=== PATIENT | female | born 1945 | race Caucasian/White ===

== ENCOUNTER 2019-11-16 12:39 | Inpatient (IN) | payer MEDICARE, BC ==
[~2019-11-16] VITALS: Ht 170.2 cm; Wt 136.5 kg
[~2019-11-16 12:39] MED LIST: ACET500T68 PO; AMLO5TAB10 PO; ASPI-612 PO; CARV25TA PO; DIPH25CA58 PO; DOCU-109 PO; FAMO20TA5 PO; FURO40TA4 PO; GLIM4TAB8 PO; HYDR-2765 PO; INSU100I13 SQ; INSU100I17 SQ; LEVO200T PO; MELO7.5T29 PO; METO50TA6 PO; NITR0.4T24 SL; POTA20TA4 PO; SENN-37 PO; SIMV40TA18 PO; SPIR25TA5 PO; TICA90TA PO
[2019-11-16 13:41] LABS: BASO % 1 % (0-3); EOS # 0.1 x10^3/uL (0.0-0.7); EOS % 1 % (0-3); HEMATOCRIT 34.6 % (36.0-47.0); HEMOGLOBIN 11.1 g/dL (12.0-15.5); LYMPH % 24 % (24-48); MEAN CORPUSCULAR HEMOGLOBIN 24 pg (25-35); MEAN CORPUSCULAR HGB CONC 32 g/dL (31-37); MEAN CORPUSCULAR VOLUME 75 fL (79-100); MONO # 0.7 x10^3/uL (0.0-1.1); MONO % 8 % (0-9); NEUT # 5.5 x10^3/uL (1.8-7.7); NEUT % 66 % (31-73); PLATELET COUNT 254 x10^3/uL (140-400); RED BLOOD COUNT 4.61 x10^6/uL (3.50-5.40); RED CELL DISTRIBUTION WIDTH 16.4 % (11.5-14.5); WHITE BLOOD COUNT 8.4 x10^3/uL (4.0-11.0)
[2019-11-16 13:56] LABS: CALCIUM 9.3 mg/dL (8.5-10.1); CREATININE 1.1 mg/dL (0.6-1.0); GFR 48.3
[2019-11-16 14:01] LABS: ALBUMIN 3.3 g/dL (3.4-5.0); ALBUMIN/GLOBULIN RATIO 0.8 (1.0-1.7); MAGNESIUM 1.4 mg/dL (1.8-2.4); TOTAL BILIRUBIN 0.5 mg/dL (0.2-1.0); TOTAL PROTEIN 7.6 g/dL (6.4-8.2)
[2019-11-16 14:15] LABS: BILIRUBIN,URINE NEGATIVE (NEG); CLARITY,URINE CLOUDY; COLOR,URINE YELLOW; NITRITE,URINE NEGATIVE (NEG); PROTEIN,URINE 30 mg/dL (NEG-TRACE)
[2019-11-16] MEDS ORDERED: IV NORMAL SALINE 1000ML BAG 1,000 ML IV ONE ×2 (14:15→18:00)
[2019-11-16 14:27] LABS: BACTERIA,URINE FEW /HPF (0-FEW); RBC,URINE >40 /HPF (0-2); SQUAMOUS EPITHELIAL CELL,UR OCC /LPF; WBC,URINE TNTC /HPF (0-4)
[2019-11-16 14:28] LABS: BARBITURATES NEG (NEG); BENZODIAZEPINES NEG (NEG); CANNABINOIDS NEG (NEG); COCAINE NEG (NEG); METHADONE NEG (NEG); OPIATES POS (NEG); PHENCYCLIDINE NEG (NEG)
[2019-11-16 14:29] LABS: AMPHETAMINE/METHAMPHETAMINE NEG (NEG)
--- NOTE | 2019-11-16 14:37 | RAD ---
EXAM: Chest, single view. HISTORY: Weakness. COMPARISON: 05/28/2019 FINDINGS: A frontal view of the chest obtained. There is no infiltrate, pleural effusion or pneumothorax. There is eventration of the right hemidiaphragm. The heart is normal in size. IMPRESSION: No acute pulmonary finding. Electronically signed by: Isabel Alarcon MD (11/16/2019 2:34 PM) [place] [id number]
--- NOTE | 2019-11-16 14:39 | EKG ---
[facility] [address] [place] [address] Test Date: 2019-11-16 Test Time: 14:10:31 Pat Name: ROSAURA MERAZ Department: Room: Gender: F [employer]: : [id number] Requested By: CHRISTINA QUEZADA Order Number: [id number] Reading MD: Measurements Intervals [place] Rate: 69 P: [place]: QRS: 8 QRSD: 78 T: 109 QT: 392 QTc: 422 Interpretive Statements IRREGULAR RHYTHM, NO P-WAVE FOUND QRS(T) CONTOUR ABNORMALITY CONSISTENT WITH ANTEROSEPTAL INFARCT PROBABLY OLD ST & T ABNORMALITY, CONSIDER HIGH LATERAL ISCHEMIA OR LEFT VENTRICULAR STRAIN ABNORMAL ECG RI6.01 No previous ECG available for comparison
--- NOTE | 2019-11-16 14:57 | RAD ---
RS Compliance Statement: One or more of the following individualized dose reduction techniques were utilized for this examination: 1. Automated exposure control 2. Adjustment of the mA and/or kV according to patient size 3. Use of iterative reconstruction technique CT head without contrast 11/16/2019 1:32 PM INDICATION: Weakness COMPARISON: None available TECHNIQUE: Multiple axial CT images of the head were obtained from skull base through the vertex without intravenous contrast. FINDINGS: Head: Ventricles, sulci and basal cisterns are within normal limits. Low-attenuation in the periventricular white matter is suggestive of chronic small vessel ischemic changes. There is no hydrocephalus. Parks-white matter differentiation is normal. There is no acute intracranial hemorrhage. There is no mass, mass effect or midline shift. Posterior fossa is normal in appearance. Visualized portions of the orbits are normal. Paranasal sinuses are well aerated. Mastoid air cells are well aerated. Scalp and calvaria are normal. IMPRESSION: No acute intracranial hemorrhage. Low-attenuation in the periventricular white matter is suggestive of chronic small vessel ischemic changes. Electronically signed by: Cari Healy MD (11/16/2019 2:54 PM) [id number]
--- NOTE | 2019-11-16 16:21 | PDOC1 ---
History and Physical Date of Admission Date of Admission DATE: 11/16/19 TIME: 16:20 Identification/Chief Complaint Chief Complaint Confusion Source Source: Caregiver, Chart review, Patient History of Present Illness History of Present Illness Ms Kenney is a 74yo F w/ PMHx DM2, HLD, HTN, CAD s/p stenting who p/w 2 other family members due to confusion and hallucinations, mostly visual. The patient is aware of this and the confusion. She does note a few recent falls, though they were "soft". She c/o some dysuria as well as some mid lower back pain. She has previously been confused with UTIs per family. Labs significant for grossly abnormal UA, cultured and started on rocephin. She was also noted with Na of 128, glucose of 309, Mg 1.4, microcytic anemia, and underwent CXR and CT both of which were negative for acute pathology. EKG was NSR. Past Medical History Cardiovascular: HTN, Hyperlipidemia Endocrine: Diabetes, Hypothyroidism Past Surgical History Past Surgical History: Appendectomy, Cholecystectomy, Tonsillectomy Family History Family History: Diabetes, Hypertension Social History Smoke: No ALCOHOL: none Drugs: None Current Medications Current Medications Current Medications Sodium Chloride 1,000 ml @ 1,000 mls/hr 1X ONCE IV Last administered on 11/16/19at 14:43; Start 11/16/19 at 14:15; Stop 11/16/19 at 15:14; Status DC Ceftriaxone Sodium (Rocephin) 1 gm 1X ONCE IVP ; Start 11/16/19 at 16:30; Stop 11/16/19 at 16:31 Active Scripts Active Novolog Flexpen (Insulin Aspart) 100 Unit/1 Ml Insuln.pen 100 Unit SQ TID PRN PRN Reported Lantus Solostar (Insulin Glargine,Hum.rec.anlog) 100 Unit/1 Ml Insuln.pen 20 Unit SQ QHS Senokot-S Tablet (Sennosides/Docusate Sodium) 1 Each Tablet 1 Each PO PRN DAILY PRN Benadryl (Diphenhydramine Hcl) 25 Mg Capsule 25 Mg PO PRN QHS PRN Acetaminophen 500 Mg Tablet 500 Mg PO PRN Q6HRS PRN Spironolactone 25 Mg Tablet 25 Mg PO DAILY Colace (Docusate Sodium) 100 Mg Capsule 100 Mg PO PRN DAILY PRN Coreg (Carvedilol) 25 Mg Tablet 12.5 Mg PO BIDWMEALS Nitrostat (Nitroglycerin) 0.4 Mg Tab.subl 0.4 Mg SL PRN Q5MIN PRN Hydrocodone-Apap 7.5-325 (Hydrocodone Bit/Acetaminophen) 1 Tab Tablet 1 Tab PO PRN TID PRN Synthroid (Levothyroxine Sodium) 200 Mcg Tablet 200 Mcg PO DAILY Allergies Allergies: Coded Allergies: hydrochlorothiazide (Verified Allergy, Intermediate, Swelling, 04/03/14) valsartan (Verified Allergy, Intermediate, Swelling, 04/03/14) ROS General: YES: Fatigue, Malaise; No: Chills, Night Sweats, Appetite, Other PSYCHOLOGICAL ROS: YES: Anxiety, Behavioral Disorder, Concentration difficultie , Disorientation, Hallucinations, Memory difficulties; No: Decreased libido, Depression, Hostility, Irritablity, Mood Swings, Obsessive thoughts, Physical abuse, Sexual abuse, Sleep disturbances, Suicidal ideation, Other Eyes: No Blurry vision, No Decreased vision, No Double vision, No Dry eyes, No Excessive tearing, No Eye Pain, No Itchy Eyes, No Loss of vision, No Photophobia, No Scotomata, No Uses contacts, No Uses glasses, No Other HEENT: No: Heacaches, Visual Changes, Hearing change, Nasal congestion, Nasal discharge, Oral lesions, Sinus pain, Sore Throat, Epistaxis, Sneezing, Snoring, Tinnitus, Vertigo, Vocal changes, Other ALLERGY AND IMMUNOLOGY: No: Hives, Insect Bite Sensitivity, Itchy/Watery Eyes, Nasal Congestion, Post Nasal Drip, Seasonal Allergies, Other Hematological and Lymphatic: No: Bleeding Problems, Blood Clots, Blood Transfusions, Brusing, Night Sweats, Pallor, Swollen Lymph Nodes, Other ENDOCRINE: No: Breast Changes, Galactorrhea, Hair Pattern Changes, Hot Flashes, Malaise/lethargy, Mood Swings, Palpitations, Polydipsia/polyuria, Skin Changes, Temperature Intolerance, Unexpected Weight Changes, Other Breast: No New/Changing Breast Lumps, No Nipple changes, No Nipple discharge, No Other Respiratory: No: Cough, Hemoptysis, Orthopnea, Pleuritic Pain, Shortness of breath, SOB with excertion, Sputum Changes, Stridor, Tachypnea, Wheezing, Other Cardiovascular: No Chest Pain, No Palpitations, No Orthopnea, No Paroxysmal Noc. Dyspnea, No Edema, No Lt Headedness, No Other Gastrointestinal: No Nausea, No Vomiting, No Abdominal Pain, No Diarrhea, No Constipation, No Melena, No Hematochezia, No Other Genitourinary: YES Dysuria, YES Frequency, YES Urgency; No Incontinence, No Hematuria, No Retention, No Discharge, No Pain, No Flank Pain, No Other, No , No , No , No , No , No , No Musculoskeletal: Yes Gait Disturbance, Yes Joint Pain; No Joint Stiffness, No Joint Swelling, No Muscle Pain, No Muscular Weakness, No Pain In:, No Swelling In:, No Other Neurological: Yes Behavorial Changes, Yes Bowel/Bladder ControlChng, Yes Confusion, Yes Gait Disturbance; No Dizziness, No Headaches, No Impaired Coord/balance, No Memory Loss, No Numbness/Tingling, No Seizures, No Speech Problems, No Tremors, No Visual Larsen es, No Weakness, No Other Skin: No Dry Skin, No Eczema, No Hair Changes, No Lumps, No Mole Changes, No Mottling, No Nail Changes, No Pruritus, No Rash, No Skin Lesion Changes, No Other, No Acne Physical Exam General: Alert, Cooperative, No acute distress, Other (Confused, oriented to person) HEENT: Atraumatic, PERRLA, EOMI, Mucous membr. moist/pink Lungs: Clear to auscultation, Normal air movement Heart: S1S2, RRR, no thrills, no rubs, no gallops, no murmurs Abdomen: Normal bowel sounds, Soft, No tenderness, No hepatosplenomegaly, No masses Rectal Exam: not examined Extremities: No clubbing, No cyanosis, No edema, Normal pulses, Other (Focal L3-4 pain on palpation) Skin: No rashes, No breakdown, No significant lesion Neuro: Normal speech, Strength at 5/5 X4 ext, Normal tone, Sensation intact, Cranial nerves 3-12 NL, Reflexes 2+ Vitals Vitals Vital Signs Date Time Temp Pulse Resp B/P (MAP) Pulse Ox O2 Delivery O2 Flow Rate FiO2 11/16/19 13:00 98.4 82 20 188/91 (123) 98 Room Air 98.4 Labs Labs Laboratory Tests Test 11/16/19 13:11/16/19 14:00 White Blood Count 8.4 x10^3/uL (4.0-11.0) Red Blood Count 4.61 x10^6/uL (3.50-5.40) Hemoglobin 11.1 g/dL (12.0-15.5) Hematocrit 34.6 % (36.0-47.0) Mean Corpuscular Volume 75 fL (79-100) Mean Corpuscular Hemoglobin 24 pg (25-35) Mean Corpuscular Hemoglobin Concent 32 g/dL (31-37) Red Cell Distribution Width 16.4 % (11.5-14.5) Platelet Count 254 x10^3/uL (140-400) Neutrophils (%) (Auto) 66 % (31-73) Lymphocytes (%) (Auto) 24 % (24-48) Monocytes (%) (Auto) 8 % (0-9) Eosinophils (%) (Auto) 1 % (0-3) Basophils (%) (Auto) 1 % (0-3) Neutrophils # (Auto) 5.5 x10^3/uL (1.8-7.7) Lymphocytes # (Auto) 2.0 x10^3/uL (1.0-4.8) Monocytes # (Auto) 0.7 x10^3/uL (0.0-1.1) Eosinophils # (Auto) 0.1 x10^3/uL (0.0-0.7) Basophils # (Auto) 0.0 x10^3/uL (0.0-0.2) Sodium Level 128 mmol/L (136-145) Potassium Level 4.0 mmol/L (3.5-5.1) Chloride Level 92 mmol/L (98-107) Carbon Dioxide Level 28 mmol/L (21-32) Anion Gap 8 (6-14) Blood Urea Nitrogen 23 mg/dL (7-20) Creatinine 1.1 mg/dL (0.6-1.0) Estimated GFR (Cockcroft-Gault) 48.3 BUN/Creatinine Ratio 21 (6-20) Glucose Level 309 mg/dL (70-99) Calcium Level 9.3 mg/dL (8.5-10.1) Magnesium Level 1.4 mg/dL (1.8-2.4) Total Bilirubin 0.5 mg/dL (0.2-1.0) Aspartate Amino Transf (AST/SGOT) 19 U/L (15-37) Alanine Aminotransferase (ALT/SGPT) 13 U/L (14-59) Alkaline Phosphatase 128 U/L (46-116) Creatine Kinase 333 U/L (26-192) Creatine Kinase MB (Mass) 2.3 ng/mL (0.0-3.6) Creatine Kinase MB Relative Index 0.7 % (0-4) Troponin I Quantitative < 0.017 ng/mL (0.000-0.055) UO-Iqo-H-Type Natriuretic Peptide 708 pg/mL (0-449) Total Protein 7.6 g/dL (6.4-8.2) Albumin 3.3 g/dL (3.4-5.0) Albumin/Globulin Ratio 0.8 (1.0-1.7) Lipase 40 U/L (73-393) Thyroid Stimulating Hormone (TSH) 0.649 uIU/mL (0.358-3.74) Urine Collection Type Unknown Urine Color Yellow Urine Clarity Cloudy Urine pH 6.0 Urine Specific [place] 1.020 Urine Protein 30 mg/dL (NEG-TRACE) Urine Glucose (UA) >=1000 mg/dL (NEG) Urine Ketones (Stick) Negative mg/dL (NEG) Urine Blood Large (NEG) Urine Nitrite Negative (NEG) Urine Bilirubin Negative (NEG) Urine Urobilinogen Dipstick 1.0 mg/dL (0.2 mg/dL) Urine Leukocyte Esterase Large (NEG) Urine RBC >40 /HPF (0-2) Urine WBC Tntc /HPF (0-4) Urine Squamous Epithelial Cells Occ /LPF Urine Bacteria Few /HPF (0-FEW) Urine Opiates Screen Pos (NEG) Urine Methadone Screen Neg (NEG) Urine Barbiturates Neg (NEG) Urine Phencyclidine Screen Neg (NEG) Urine Amphetamine/Methamphetamine Neg (NEG) Urine Benzodiazepines Screen Neg (NEG) Urine Cocaine Screen Neg (NEG) Urine Cannabinoids Screen Neg (NEG) Urine Ethyl Alcohol Neg (NEG) Laboratory Tests Test 11/16/19 13:25 11/16/19 14:00 White Blood Count 8.4 x10^3/uL (4.0-11.0) Red Blood Count 4.61 x10^6/uL (3.50-5.40) Hemoglobin 11.1 g/dL (12.0-15.5) Hematocrit 34.6 % (36.0-47.0) Mean Corpuscular Volume 75 fL (79-100) Mean Corpuscular Hemoglobin 24 pg (25-35) Mean Corpuscular Hemoglobin Concent 32 g/dL (31-37) Red Cell Distribution Width 16.4 % (11.5-14.5) Platelet Count 254 x10^3/uL (140-400) Neutrophils (%) (Auto) 66 % (31-73) Lymphocytes (%) (Auto) 24 % (24-48) Monocytes (%) (Auto) 8 % (0-9) Eosinophils (%) (Auto) 1 % (0-3) Basophils (%) (Auto) 1 % (0-3) Neutrophils # (Auto) 5.5 x10^3/uL (1.8-7.7) Lymphocytes # (Auto) 2.0 x10^3/uL (1.0-4.8) Monocytes # (Auto) 0.7 x10^3/uL (0.0-1.1) Eosinophils # (Auto) 0.1 x10^3/uL (0.0-0.7) Basophils # (Auto) 0.0 x10^3/uL (0.0-0.2) Sodium Level 128 mmol/L (136-145) Potassium Level 4.0 mmol/L (3.5-5.1) Chloride Level 92 mmol/L (98-107) Carbon Dioxide Level 28 mmol/L (21-32) Anion Gap 8 (6-14) Blood Urea Nitrogen 23 mg/dL (7-20) Creatinine 1.1 mg/dL (0.6-1.0) Estimated GFR (Cockcroft-Gault) 48.3 BUN/Creatinine Ratio 21 (6-20) Glucose Level 309 mg/dL (70-99) Calcium Level 9.3 mg/dL (8.5-10.1) Magnesium Level 1.4 mg/dL (1.8-2.4) Total Bilirubin 0.5 mg/dL (0.2-1.0) Aspartate Amino Transf (AST/SGOT) 19 U/L (15-37) Alanine Aminotransferase (ALT/SGPT) 13 U/L (14-59) Alkaline Phosphatase 128 U/L (46-116) Creatine Kinase 333 U/L (26-192) Creatine Kinase MB (Mass) 2.3 ng/mL (0.0-3.6) Creatine Kinase MB Relative Index 0.7 % (0-4) Troponin I Quantitative < 0.017 ng/mL (0.000-0.055) EL-Edj-B-Type Natriuretic Peptide 708 pg/mL (0-449) Total Protein 7.6 g/dL (6.4-8.2) Albumin 3.3 g/dL (3.4-5.0) Albumin/Globulin Ratio 0.8 (1.0-1.7) Lipase 40 U/L (73-393) Thyroid Stimulating Hormone (TSH) 0.649 uIU/mL (0.358-3.74) Urine Collection Type Unknown Urine Color Yellow Urine Clarity Cloudy Urine pH 6.0 Urine Specific [place] 1.020 Urine Protein 30 mg/dL (NEG-TRACE) Urine Glucose (UA) >=1000 mg/dL (NEG) Urine Ketones (Stick) Negative mg/dL (NEG) Urine Blood Large (NEG) Urine Nitrite Negative (NEG) Urine Bilirubin Negative (NEG) Urine Urobilinogen Dipstick 1.0 mg/dL (0.2 mg/dL) Urine Leukocyte Esterase Large (NEG) Urine RBC >40 /HPF (0-2) Urine WBC Tntc /HPF (0-4) Urine Squamous Epithelial Cells Occ /LPF Urine Bacteria Few /HPF (0-FEW) Urine Opiates Screen Pos (NEG) Urine Methadone Screen Neg (NEG) Urine Barbiturates Neg (NEG) Urine Phencyclidine Screen Neg (NEG) Urine Amphetamine/Methamphetamine Neg (NEG) Urine Benzodiazepines Screen Neg (NEG) Urine Cocaine Screen Neg (NEG) Urine Cannabinoids Screen Neg (NEG) Urine Ethyl Alcohol Neg (NEG) Images Images CXR - There is no infiltrate, pleural effusion or pneumothorax. There is eventration of the right hemidiaphragm. The heart is normal in size. IMPRESSION: No acute pulmonary finding. CT head without contrast 11/16/2019 1:32 PM Head: Ventricles, sulci and basal cisterns are within normal limits. Low-attenuation in the periventricular white matter is suggestive of chronic small vessel ischemic changes. There is no hydrocephalus. Parks-white matter differentiation is normal. There is no acute intracranial hemorrhage. There is no mass, mass effect or midline shift. Posterior fossa is normal in appearance. Visualized portions of the orbits are normal. Paranasal sinuses are well aerated. Mastoid air cells are well aerated. Scalp and calvaria are normal. IMPRESSION: No acute intracranial hemorrhage. Low-attenuation in the periventricular white matter is suggestive of chronic small vessel ischemic changes. VTE Prophylaxis Ordered VTE Prophylaxis Devices: No VTE Pharmacological Prophylaxi: Yes Assessment/Plan Assessment/Plan A/P: Acute encephalopathy - likely 2/2 UTI vs hyponatremia UTI - will treat empirically with rocephin, f/u culture results Urinary incontinence - will have bladder training with OT Morbid obesity BMI 50 - counseled on weight loss Lower back pain - new onset, relatively, with her recent falls and confusion, will obtain lumbar X-ray to r/o acute pathology Bilateral knee pain left greater than right - improved after prior injections Diabetes type 2 uncontrolled - will place on basal bolus plus regimen in house Hypertension, controlled - cont meds Hyponatremia - will give IVF, this seems hypovolemic Hypomagnesemia - will replace, check in AM Hypothyroidism - TSH WNL, will cont 200mcg levothyroxine dosing FEN - ADA diet PPX - lovenox FULL CODE Dispo -inpatient likely 2 midnights HILDA HERNANDEZ MD Nov 16, 2019 16:21
[2019-11-16] MEDS ORDERED: cefTRIAXone IV Push 1 GM VIAL. IVP ONE (16:30)
[2019-11-16] MEDS ORDERED: NITROGLYCERIN SUBLINGUAL 0.4 MG BOTTLE OF 25. SL PRN (17:45)
--- NOTE | 2019-11-16 17:47 | PHYS DOC ---
Past Medical History Past Medical History: Diabetes-Type II, High Cholesterol, Hypertension, AL, Other Additional Past Medical Histor: HEART STENTS Past Surgical History: Appendectomy, Cholecystectomy, Tonsillectomy Additional Past Surgical Histo: CARDIAC STENTS Alcohol Use: Rarely Drug Use: None Adult General Chief Complaint Chief Complaint: WEAKNESS/GENERALIZED HPI HPI Patient is a 74 year old female with history of high cholesterol, hypertension, AL, diabetes type 2, presenting to the ED today from home. Patient is in the ED with 2 other family members, they report patient appeared confused. They state patient was seeing and talking about things that don't exist. They report patient typically has this behavior when she has a UTI. Review of Systems Review of Systems Constitutional: Denies fever or chills [] Eyes: Denies change in visual acuity, redness, or eye pain [] HENT: Denies nasal congestion or sore throat [] Respiratory: Denies cough or shortness of breath [] Cardiovascular: No additional information not addressed in HPI [] GI: Denies abdominal pain, nausea, vomiting, bloody stools or diarrhea [] : Denies dysuria or hematuria [] Musculoskeletal: Denies back pain or joint pain [] Integument: Denies rash or skin lesions [] Neurologic: Reports confusion denies headache, focal weakness or sensory changes [] All other systems were reviewed and found to be within normal limits, except as documented in this note. Current Medications Current Medications Current Medications Medications (Trade) Dose Ordered Sig/Natasha Start Time Stop Time Status Last Admin Dose Admin Sodium Chloride 1,000 ml @ 1,000 mls/hr 1X ONCE 11/16/19 14:15 11/16/19 15:14 DC 11/16/19 14:43 1,000 MLS/HR Allergies Allergies Allergies Coded Allergies Type Severity Reaction Last Updated Verified hydrochlorothiazide Allergy Intermediate Swelling 04/03/14 Yes valsartan Allergy Intermediate Swelling 04/03/14 Yes Physical Exam Physical Exam Constitutional: Well developed, well nourished, no acute distress, non-toxic appearance. [] HENT: Normocephalic, atraumatic, bilateral external ears normal, oropharynx peter st, no oral exudates, nose normal. [] Eyes: PERRLA, EOMI, conjunctiva normal, no discharge. [] Neck: Normal range of motion, no tenderness, supple, no stridor. [] Cardiovascular:Heart rate regular rhythm, no murmur [] Lungs & Thorax: Bilateral breath sounds clear to auscultation [] Abdomen: Bowel sounds normal, soft, no tenderness, no masses, no pulsatile masses. [] Skin: Warm, dry, no erythema, no rash. [] Back: No tenderness, no CVA tenderness. [] Extremities: No tenderness, no cyanosis, no clubbing, ROM intact, no edema. [] Neurologic: Alert and oriented X 3, normal motor function, normal sensory function, no focal deficits noted. Cranial nerves II through XII intact Psychologic: Affect normal, judgement normal, mood normal. [] Current Patient Data Vital Signs Vital Signs Date Time Temp Pulse Resp B/P (MAP) Pulse Ox O2 Delivery O2 Flow Rate FiO2 11/16/19 13:00 98.4 82 20 188/91 (123) 98 Room Air 98.4 Lab Values Laboratory Tests Test 11/16/19 13:25 11/16/19 14:00 White Blood Count 8.4 x10^3/uL (4.0-11.0) Red Blood Count 4.61 x10^6/uL (3.50-5.40) Hemoglobin 11.1 g/dL (12.0-15.5) L Hematocrit 34.6 % (36.0-47.0) L Mean Corpuscular Volume 75 fL (79-100) L Mean Corpuscular Hemoglobin 24 pg (25-35) L Mean Corpuscular Hemoglobin Concent 32 g/dL (31-37) Red Cell Distribution Width 16.4 % (11.5-14.5) H Platelet Count 254 x10^3/uL (140-400) Neutrophils (%) (Auto) 66 % (31-73) Lymphocytes (%) (Auto) 24 % (24-48) Monocytes (%) (Auto) 8 % (0-9) Eosinophils (%) (Auto) 1 % (0-3) Basophils (%) (Auto) 1 % (0-3) Neutrophils # (Auto) 5.5 x10^3/uL (1.8-7.7) Lymphocytes # (Auto) 2.0 x10^3/uL (1.0-4.8) Monocytes # (Auto) 0.7 x10^3/uL (0.0-1.1) Eosinophils # (Auto) 0.1 x10^3/uL (0.0-0.7) Basophils # (Auto) 0.0 x10^3/uL (0.0-0.2) Sodium Level 128 mmol/L (136-145) L Potassium Level 4.0 mmol/L (3.5-5.1) Chloride Level 92 mmol/L (98-107) L Carbon Dioxide Level 28 mmol/L (21-32) Anion Gap 8 (6-14) Blood Urea Nitrogen 23 mg/dL (7-20) H Creatinine 1.1 mg/dL (0.6-1.0) H Estimated GFR (Cockcroft-Gault) 48.3 BUN/Creatinine Ratio 21 (6-20) H Glucose Level 309 mg/dL (70-99) H Calcium Level 9.3 mg/dL (8.5-10.1) Magnesium Level 1.4 mg/dL (1.8-2.4) L Iron Level 43 ug/dL (50-170) L Total Iron Binding Capacity 364 ug/dL (250-450) Iron Saturation 12 % (15-34) L Total Bilirubin 0.5 mg/dL (0.2-1.0) Aspartate Amino Transferase (AST) 19 U/L (15-37) Alanine Aminotransferase (ALT) 13 U/L (14-59) L Alkaline Phosphatase 128 U/L (46-116) H Creatine Kinase 333 U/L (26-192) H Creatine Kinase MB (Mass) 2.3 ng/mL (0.0-3.6) Creatine Kinase MB Relative Index 0.7 % (0-4) Troponin I Quantitative < 0.017 ng/mL (0.000-0.055) UU-Nio-Z-Type Natriuretic Peptide 708 pg/mL (0-449) H Total Protein 7.6 g/dL (6.4-8.2) Albumin 3.3 g/dL (3.4-5.0) L Albumin/Globulin Ratio 0.8 (1.0-1.7) L Lipase 40 U/L (73-393) L Thyroid Stimulating Hormone (TSH) 0.649 uIU/mL (0.358-3.74) Urine Collection Type Unknown Urine Color Yellow Urine Clarity Cloudy Urine pH 6.0 Urine Specific [place] 1.020 Urine Protein 30 mg/dL (NEG-TRACE) Urine Glucose (UA) >=1000 mg/dL (NEG) Urine Ketones (Stick) Negative mg/dL (NEG) Urine Blood Large (NEG) Urine Nitrite Negative (NEG) Urine Bilirubin Negative (NEG) Urine Urobilinogen Dipstick 1.0 mg/dL (0.2 mg/dL) Urine Leukocyte Esterase Large (NEG) Urine RBC >40 /HPF (0-2) Urine WBC Tntc /HPF (0-4) Urine Squamous Epithelial Cells Occ /LPF Urine Bacteria Few /HPF (0-FEW) Urine Opiates Screen Pos (NEG) Urine Methadone Screen Neg (NEG) Urine Barbiturates Neg (NEG) Urine Phencyclidine Screen Neg (NEG) Urine Amphetamine/Methamphetamine Neg (NEG) Urine Benzodiazepines Screen Neg (NEG) Urine Cocaine Screen Neg (NEG) Urine Cannabinoids Screen Neg (NEG) Urine Ethyl Alcohol Neg (NEG) Laboratory Tests 11/16/19 13:25 Laboratory Tests 11/16/19 13:25 EKG EKG [address] eLone SR HR 69 no STEMI[] Radiology/Procedures Radiology/Procedures []PROCEDURE: PORTABLE CHEST 1V EXAM: Chest, single view. HISTORY: Weakness. COMPARISON: 05/28/2019 FINDINGS: A frontal view of the chest obtained. There is no infiltrate, pleural effusion or pneumothorax. There is eventration of the right hemidiaphragm. The heart is normal in size. IMPRESSION: No acute pulmonary finding. Electronically signed by: Isabel Ibarra MD (11/16/2019 2:34 PM) [facility] DICTATED and SIGNED BY: ISABEL IBARRA MD DATE: 11/16/19 1434 PROCEDURE: CT HEAD WO CONTRAST PQRS Compliance Statement: One or more of the following individualized dose reduction techniques were utilized for this examination: 1. Automated exposure control 2. Adjustment of the mA and/or kV according to patient size 3. Use of iterative reconstruction technique CT head without contrast 11/16/2019 1:32 PM INDICATION: Weakness COMPARISON: None available TECHNIQUE: Multiple axial CT images of the head were obtained from skull base through the vertex without intravenous contrast. FINDINGS: Head: Ventricles, sulci and basal cisterns are within normal limits. Low-attenuation in the periventricular white matter is suggestive of chronic small vessel ischemic changes. There is no hydrocephalus. Parks-white matter differentiation is normal. There is no acute intracranial hemorrhage. There is no mass, mass effect or midline shift. Posterior fossa is normal in appearance. Visualized portions of the orbits are normal. Paranasal sinuses are well aerated. Mastoid air cells are well aerated. Scalp and calvaria are normal. IMPRESSION: No acute intracranial hemorrhage. Low-attenuation in the periventricular white matter is suggestive of chronic small vessel ischemic changes. Electronically signed by: Lizette Lantigua MD (11/16/2019 2:54 PM) [facility] DICTATED and SIGNED BY: LIZETTE LANTIGUA MD DATE: 11/16/19 4053 Course & Med Decision Making Course & Med Decision Making Pertinent Labs and Imaging studies reviewed. (See chart for details) This is a 74-year-old female patient presenting to the ED today to be evaluated for confusion for 2 days and possible UTI. Urine positive for UTI, CT of the head is negative. CBC with a normal WBC, CMP with sodium of 128, glucose of 309, anion gap is normal Patient was started on Rocephin and IV fluids. Spoke with Dr. Sorensen who accepted patient for admission. Dragon Disclaimer Dragon Disclaimer This electronic medical record was generated, in whole or in part, using a voice recognition dictation system. Departure Departure Impression: Primary Impression: Urinary tract infection Additional Impressions: Altered mental status Hyperglycemia Disposition: 09 ADMITTED INPATIENT Condition: STABLE Referrals: RYAN ALY MD (PCP) Problem Qualifiers Primary Impression: Urinary tract infection Urinary tract infection type: site unspecified Hematuria presence: without hematuria Qualified Codes: N39.0 - Urinary tract infection, site not specified Additional Impressions: Altered mental status Altered mental status type: unspecified Qualified Codes: R41.82 - Altered mental status, unspecified CHRISTINA QUEZADA [employer]ER Nov 16, 2019 17:47
[2019-11-16] MEDS ORDERED: ACETAMINOPHEN 325 MG TABLET. PO PRN (18:00)
[2019-11-16] MEDS ORDERED: ONDANSETRON PF 4 MG/2 ML VIAL. IV PRN ×2 (18:00→21:45)
[2019-11-16] MEDS ORDERED: MORPHINE SULFATE 2 MG/ML VIAL. IV PRN (18:00)
[2019-11-16 19:00] VITALS: BP 148/63
--- NOTE | 2019-11-16 19:30 | NUR ---
The patient, ROSAURA MERAZ, 74 y/o, F admitted by HILDA HERNANDEZ MD, was given written information regarding hospital policies, unit procedures and contact persons. Valuables were checked and noted. Patient is currently sitting in bed watching TV. Patient states that her daughters took her purse home with them prior to admission to the floor. Patient was given ice water and a box lunch, patient states no other needs at this time. This RN will continue to monitor the patient.
[2019-11-16] MEDS: INSULIN GLARGINE SYRINGE. SQ SCH (21:41)
[2019-11-16] MEDS ORDERED: IV DEXTROSE 5% 250 ML BAG. IV PRN (21:45)
[2019-11-16] MEDS ORDERED: DEXTROSE 50% 25 GM / 50ML DISP.SYRIN. IV PRN (21:45)
[2019-11-16] MEDS ORDERED: MAGNESIUM SULFATE 4GM 100 ML IV ONE (22:00)
[2019-11-16] MEDS ORDERED: ENOXAPARIN 30 MG/0.3 ML SYRINGE. SQ SCH (22:00)
[2019-11-16 23:00] VITALS: BP 158/55
[2019-11-17] MEDS: ACETAMINOPHEN 500 MG TABLET PO PRN ×2 (02:49→15:02)
[2019-11-17 03:00] VITALS: BP 162/64
[2019-11-17 05:52] LABS: CALCIUM 8.8 mg/dL (8.5-10.1); CREATININE 0.9 mg/dL (0.6-1.0); GFR 60.9; POTASSIUM 3.7 mmol/L (3.5-5.1)
[2019-11-17] MEDS: LEVOTHYROXINE 100 MCG TABLET PO SCH (06:30)
[2019-11-17 07:00] VITALS: BP 114/58
[2019-11-17] MEDS: CARVEDILOL 12.5 MG TABLET. PO SCH ×2 (08:55→17:24)
[2019-11-17] MEDS: INSULIN LISPRO 300 UNITS/3 ML VIAL. SQ SCH ×4 (08:57→22:13)
[2019-11-17] MEDS ORDERED: cefTRIAXone IV Push 1 GM VIAL. IVP SCH (09:30)
--- NOTE | 2019-11-17 09:32 | PDOC ---
PROGRESS NOTES Chief Complaint Chief Complaint A/P: Acute encephalopathy - likely 2/2 UTI vs hyponatremia UTI - will treat empirically with rocephin, f/u culture results Urinary incontinence - will have bladder training with OT Morbid obesity BMI 50 - counseled on weight loss Lower back pain - new onset, relatively, with her recent falls and confusion, will obtain lumbar X-ray to r/o acute pathology Bilateral knee pain left greater than right - improved after prior injections Diabetes type 2 uncontrolled - will place on basal bolus plus regimen in house Hypertension, controlled - cont meds Hyponatremia - will give IVF, this seems hypovolemic Hypomagnesemia - will replace, check in AM Hypothyroidism - TSH WNL, will cont 200mcg levothyroxine dosing Rash - on left arm, appears vesicular, slightly painful, with the distribution will treat as shingles FEN - ADA diet PPX - lovenox FULL CODE Dispo -inpatient likely 2 midnights History of Present Illness History of Present Illness Ms Kenney is a 74yo F w/ PMHx DM2, HLD, HTN, CAD s/p stenting who p/w 2 other family members due to confusion and hallucinations, mostly visual. The patient is aware of this and the confusion. She does note a few recent falls, though they were "soft". She c/o some dysuria as well as some mid lower back pain. She has previously been confused with UTIs per family. Labs significant for grossly abnormal UA, cultured and started on rocephin. She was also noted with Na of 128, glucose of 309, Mg 1.4, microcytic anemia, and underwent CXR and CT both of which were negative for acute pathology. EKG wa s NSR. Overnight started feeling a bit better. This morning she lost IV access, now has a rash on her left hand and arm, vesicular, a bit painful. No CP or SOB Plan: Treat shingles 1000mg TID valtrex Vitals Vitals Vital Signs Date Time Temp Pulse Resp B/P (MAP) Pulse Ox O2 Delivery O2 Flow Rate FiO2 11/17/19 08:55 71 114/58 11/17/19 08:00 Room Air 11/17/19 07:00 97.7 14 95 97.7 Physical Exam General: Alert, Cooperative, No acute distress, Other (Confused, oriented to person) Lungs: Clear Abdomen: Normal bowel sounds, Soft, No tenderness, No hepatosplenomegaly, No ma sses Extremities: No clubbing, No cyanosis, No edema, Normal pulses, Other (Focal L3-4 pain on palpation) Skin: No rashes, No breakdown, No significant lesion Labs LABS Laboratory Tests Test 11/16/19 13:25 11/16/19 14:00 11/16/19 21:27 11/17/19 05:10 White Blood Count 8.4 x10^3/uL (4.0-11.0) Red Blood Count 4.61 x10^6/uL (3.50-5.40) Hemoglobin 11.1 g/dL (12.0-15.5) Hematocrit 34.6 % (36.0-47.0) Mean Corpuscular Volume 75 fL (79-100) Mean Corpuscular Hemoglobin 24 pg (25-35) Mean Corpuscular Hemoglobin Concent 32 g/dL (31-37) Red Cell Distribution Width 16.4 % (11.5-14.5) Platelet Count 254 x10^3/uL (140-400) Neutrophils (%) (Auto) 66 % (31-73) Lymphocytes (%) (Auto) 24 % (24-48) Monocytes (%) (Auto) 8 % (0-9) Eosinophils (%) (Auto) 1 % (0-3) Basophils (%) (Auto) 1 % (0-3) Neutrophils # (Auto) 5.5 x10^3/uL (1.8-7.7) Lymphocytes # (Auto) 2.0 x10^3/uL (1.0-4.8) Monocytes # (Auto) 0.7 x10^3/uL (0.0-1.1) Eosinophils # (Auto) 0.1 x10^3/uL (0.0-0.7) Basophils # (Auto) 0.0 x10^3/uL (0.0-0.2) Sodium Level 128 mmol/L (136-145) 130 mmol/L (136-145) Potassium Level 4.0 mmol/L (3.5-5.1) 3.7 mmol/L (3.5-5.1) Chloride Level 92 mmol/L (98-107) 97 mmol/L (98-107) Carbon Dioxide Level 28 mmol/L (21-32) 28 mmol/L (21-32) Anion Gap 8 (6-14) 5 (6-14) Blood Urea Nitrogen 23 mg/dL (7-20) 17 mg/dL (7-20) Creatinine 1.1 mg/dL (0.6-1.0) 0.9 mg/dL (0.6-1.0) Estimated GFR (Cockcroft-Gault) 48.3 60.9 BUN/Creatinine Ratio 21 (6-20) Glucose Level 309 mg/dL (70-99) 227 mg/dL (70-99) Calcium Level 9.3 mg/dL (8.5-10.1) 8.8 mg/dL (8.5-10.1) Magnesium Level 1.4 mg/dL (1.8-2.4) Iron Level 43 ug/dL (50-170) Total Iron Binding Capacity 364 ug/dL (250-450) Iron Saturation 12 % (15-34) Total Bilirubin 0.5 mg/dL (0.2-1.0) Aspartate Amino Transf (AST/SGOT) 19 U/L (15-37) Alanine Aminotransferase (ALT/SGPT) 13 U/L (14-59) Alkaline Phosphatase 128 U/L (46-116) Creatine Kinase 333 U/L (26-192) Creatine Kinase MB (Mass) 2.3 ng/mL (0.0-3.6) Creatine Kinase MB Relative Index 0.7 % (0-4) Troponin I Quantitative < 0.017 ng/mL (0.000-0.055) DQ-Dom-G-Type Natriuretic Peptide 708 pg/mL (0-449) Total Protein 7.6 g/dL (6.4-8.2) Albumin 3.3 g/dL (3.4-5.0) Albumin/Globulin Ratio 0.8 (1.0-1.7) Lipase 40 U/L (73-393) Vitamin B12 Level 270 pg/mL (247-911) Thyroid Stimulating Hormone (TSH) 0.649 uIU/mL (0.358-3.74) Urine Collection Type Unknown Urine Color Yellow Urine Clarity Cloudy Urine pH 6.0 Urine Specific [place] 1.020 Urine Protein 30 mg/dL (NEG-TRACE) Urine Glucose (UA) >=1000 mg/dL (NEG) Urine Ketones (Stick) Negative mg/dL (NEG) Urine Blood Large (NEG) Urine Nitrite Negative (NEG) Urine Bilirubin Negative (NEG) Urine Urobilinogen Dipstick 1.0 mg/dL (0.2 mg/dL) Urine Leukocyte Esterase Large (NEG) Urine RBC >40 /HPF (0-2) Urine WBC Tntc /HPF (0-4) Urine Squamous Epithelial Cells Occ /LPF Urine Bacteria Few /HPF (0-FEW) Urine Opiates Screen Pos (NEG) Urine Methadone Screen Neg (NEG) Urine Barbiturates Neg (NEG) Urine Phencyclidine Screen Neg (NEG) Urine Amphetamine/Methamphetamine Neg (NEG) Urine Benzodiazepines Screen Neg (NEG) Urine Cocaine Screen Neg (NEG) Urine Cannabinoids Screen Neg (NEG) Urine Ethyl Alcohol Neg (NEG) Glucose (Fingerstick) 284 mg/dL (70-99) Test 11/17/19 08:42 Glucose (Fingerstick) 218 mg/dL (70-99) Assessment and Plan Assessmemt and Plan Problems Medical Problems: (1) Altered mental status Status: Acute (2) Hyperglycemia Status: Acute (3) Urinary tract infection Status: Acute Comment Review of Relevant I have reviewed the following items jina (where applicable) has been applied. Labs Laboratory Tests Test 11/16/19 13:25 11/16/19 14:00 11/16/19 21:27 11/17/19 05:10 White Blood Count 8.4 x10^3/uL (4.0-11.0) Red Blood Count 4.61 x10^6/uL (3.50-5.40) Hemoglobin 11.1 g/dL (12.0-15.5) Hematocrit 34.6 % (36.0-47.0) Mean Corpuscular Volume 75 fL (79-100) Mean Corpuscular Hemoglobin 24 pg (25-35) Mean Corpuscular Hemoglobin Concent 32 g/dL (31-37) Red Cell Distribution Width 16.4 % (11.5-14.5) Platelet Count 254 x10^3/uL (140-400) Neutrophils (%) (Auto) 66 % (31-73) Lymphocytes (%) (Auto) 24 % (24-48) Monocytes (%) (Auto) 8 % (0-9) Eosinophils (%) (Auto) 1 % (0-3) Basophils (%) (Auto) 1 % (0-3) Neutrophils # (Auto) 5.5 x10^3/uL (1.8-7.7) Lymphocytes # (Auto) 2.0 x10^3/uL (1.0-4.8) Monocytes # (Auto) 0.7 x10^3/uL (0.0-1.1) Eosinophils # (Auto) 0.1 x10^3/uL (0.0-0.7) Basophils # (Auto) 0.0 x10^3/uL (0.0-0.2) Sodium Level 128 mmol/L (136-145) 130 mmol/L (136-145) Potassium Level 4.0 mmol/L (3.5-5.1) 3.7 mmol/L (3.5-5.1) Chloride Level 92 mmol/L (98-107) 97 mmol/L (98-107) Carbon Dioxide Level 28 mmol/L (21-32) 28 mmol/L (21-32) Anion Gap 8 (6-14) 5 (6-14) Blood Urea Nitrogen 23 mg/dL (7-20) 17 mg/dL (7-20) Creatinine 1.1 mg/dL (0.6-1.0) 0.9 mg/dL (0.6-1.0) Estimated GFR (Cockcroft-Gault) 48.3 60.9 BUN/Creatinine Ratio 21 (6-20) Glucose Level 309 mg/dL (70-99) 227 mg/dL (70-99) Calcium Level 9.3 mg/dL (8.5-10.1) 8.8 mg/dL (8.5-10.1) Magnesium Level 1.4 mg/dL (1.8-2.4) Iron Level 43 ug/dL (50-170) Total Iron Binding Capacity 364 ug/dL (250-450) Iron Saturation 12 % (15-34) Total Bilirubin 0.5 mg/dL (0.2-1.0) Aspartate Amino Transf (AST/SGOT) 19 U/L (15-37) Alanine Aminotransferase (ALT/SGPT) 13 U/L (14-59) Alkaline Phosphatase 128 U/L (46-116) Creatine Kinase 333 U/L (26-192) Creatine Kinase MB (Mass) 2.3 ng/mL (0.0-3.6) Creatine Kinase MB Relative Index 0.7 % (0-4) Troponin I Quantitative < 0.017 ng/mL (0.000-0.055) FA-Fud-U-Type Natriuretic Peptide 708 pg/mL (0-449) Total Protein 7.6 g/dL (6.4-8.2) Albumin 3.3 g/dL (3.4-5.0) Albumin/Globulin Ratio 0.8 (1.0-1.7) Lipase 40 U/L (73-393) Vitamin B12 Level 270 pg/mL (247-911) Thyroid Stimulating Hormone (TSH) 0.649 uIU/mL (0.358-3.74) Urine Collection Type Unknown Urine Color Yellow Urine Clarity Cloudy Urine pH 6.0 Urine Specific [place] 1.020 Urine Protein 30 mg/dL (NEG-TRACE) Urine Glucose (UA) >=1000 mg/dL (NEG) Urine Ketones (Stick) Negative mg/dL (NEG) Urine Blood Large (NEG) Urine Nitrite Negative (NEG) Urine Bilirubin Negative (NEG) Urine Urobilinogen Dipstick 1.0 mg/dL (0.2 mg/dL) Urine Leukocyte Esterase Large (NEG) Urine RBC >40 /HPF (0-2) Urine WBC Tntc /HPF (0-4) Urine Squamous Epithelial Cells Occ /LPF Urine Bacteria Few /HPF (0-FEW) Urine Opiates Screen Pos (NEG) Urine Methadone Screen Neg (NEG) Urine Barbiturates Neg (NEG) Urine Phencyclidine Screen Neg (NEG) Urine Amphetamine/Methamphetamine Neg (NEG) Urine Benzodiazepines Screen Neg (NEG) Urine Cocaine Screen Neg (NEG) Urine Cannabinoids Screen Neg (NEG) Urine Ethyl Alcohol Neg (NEG) Glucose (Fingerstick) 284 mg/dL (70-99) Test 11/17/19 08:42 Glucose (Fingerstick) 218 mg/dL (70-99) Laboratory Tests Test 11/16/19 13:25 11/16/19 14:00 11/16/19 21:27 11/17/19 05:10 White Blood Count 8.4 x10^3/uL (4.0-11.0) Red Blood Count 4.61 x10^6/uL (3.50-5.40) Hemoglobin 11.1 g/dL (12.0-15.5) Hematocrit 34.6 % (36.0-47.0) Mean Corpuscular Volume 75 fL (79-100) Mean Corpuscular Hemoglobin 24 pg (25-35) Mean Corpuscular Hemoglobin Concent 32 g/dL (31-37) Red Cell Distribution Width 16.4 % (11.5-14.5) Platelet Count 254 x10^3/uL (140-400) Neutrophils (%) (Auto) 66 % (31-73) Lymphocytes (%) (Auto) 24 % (24-48) Monocytes (%) (Auto) 8 % (0-9) Eosinophils (%) (Auto) 1 % (0-3) Basophils (%) (Auto) 1 % (0-3) Neutrophils # (Auto) 5.5 x10^3/uL (1.8-7.7) Lymphocytes # (Auto) 2.0 x10^3/uL (1.0-4.8) Monocytes # (Auto) 0.7 x10^3/uL (0.0-1.1) Eosinophils # (Auto) 0.1 x10^3/uL (0.0-0.7) Basophils # (Auto) 0.0 x10^3/uL (0.0-0.2) Sodium Level 128 mmol/L (136-145) 130 mmol/L (136-145) Potassium Level 4.0 mmol/L (3.5-5.1) 3.7 mmol/L (3.5-5.1) Chloride Level 92 mmol/L (98-107) 97 mmol/L (98-107) Carbon Dioxide Level 28 mmol/L (21-32) 28 mmol/L (21-32) Anion Gap 8 (6-14) 5 (6-14) Blood Urea Nitrogen 23 mg/dL (7-20) 17 mg/dL (7-20) Creatinine 1.1 mg/dL (0.6-1.0) 0.9 mg/dL (0.6-1.0) Estimated GFR (Cockcroft-Gault) 48.3 60.9 BUN/Creatinine Ratio 21 (6-20) Glucose Level 309 mg/dL (70-99) 227 mg/dL (70-99) Calcium Level 9.3 mg/dL (8.5-10.1) 8.8 mg/dL (8.5-10.1) Magnesium Level 1.4 mg/dL (1.8-2.4) Iron Level 43 ug/dL (50-170) Total Iron Binding Capacity 364 ug/dL (250-450) Iron Saturation 12 % (15-34) Total Bilirubin 0.5 mg/dL (0.2-1.0) Aspartate Amino Transf (AST/SGOT) 19 U/L (15-37) Alanine Aminotransferase (ALT/SGPT) 13 U/L (14-59) Alkaline Phosphatase 128 U/L (46-116) Creatine Kinase 333 U/L (26-192) Creatine Kinase MB (Mass) 2.3 ng/mL (0.0-3.6) Creatine Kinase MB Relative Index 0.7 % (0-4) Troponin I Quantitative < 0.017 ng/mL (0.000-0.055) SF-Ncl-K-Type Natriuretic Peptide 708 pg/mL (0-449) Total Protein 7.6 g/dL (6.4-8.2) Albumin 3.3 g/dL (3.4-5.0) Albumin/Globulin Ratio 0.8 (1.0-1.7) Lipase 40 U/L (73-393) Vitamin B12 Level 270 pg/mL (247-911) Thyroid Stimulating Hormone (TSH) 0.649 uIU/mL (0.358-3.74) Urine Collection Type Unknown Urine Color Yellow Urine Clarity Cloudy Urine pH 6.0 Urine Specific [place] 1.020 Urine Protein 30 mg/dL (NEG-TRACE) Urine Glucose (UA) >=1000 mg/dL (NEG) Urine Ketones (Stick) Negative mg/dL (NEG) Urine Blood Large (NEG) Urine Nitrite Negative (NEG) Urine Bilirubin Negative (NEG) Urine Urobilinogen Dipstick 1.0 mg/dL (0.2 mg/dL) Urine Leukocyte Esterase Large (NEG) Urine RBC >40 /HPF (0-2) Urine WBC Tntc /HPF (0-4) Urine Squamous Epithelial Cells Occ /LPF Urine Bacteria Few /HPF (0-FEW) Urine Opiates Screen Pos (NEG) Urine Methadone Screen Neg (NEG) Urine Barbiturates Neg (NEG) Urine Phencyclidine Screen Neg (NEG) Urine Amphetamine/Methamphetamine Neg (NEG) Urine Benzodiazepines Screen Neg (NEG) Urine Cocaine Screen Neg (NEG) Urine Cannabinoids Screen Neg (NEG) Urine Ethyl Alcohol Neg (NEG) Glucose (Fingerstick) 284 mg/dL (70-99) Test 11/17/19 08:42 Glucose (Fingerstick) 218 mg/dL (70-99) Medications Current Medications Sodium Chloride 1,000 ml @ 1,000 mls/hr 1X ONCE IV Last administered on 11/16/19at 14:43; Start 11/16/19 at 14:15; Stop 11/16/19 at 15:14; Status DC Ceftriaxone Sodium (Rocephin) 1 gm 1X ONCE IVP Last administered on 11/16/19at 17:20; Start 11/16/19 at 16:30; Stop 11/16/19 at 16:31; Status DC Acetaminophen (Tylenol) 500 mg PRN Q6HRS PRN PO MILD PAIN 1-3 Last administered on 11/17/19at 02:49; Start 11/16/19 at 17:45 Docusate Sodium (Colace) 100 mg PRN DAILY PRN PO CONSTIPATION; Start 11/16/19 at 17:45 Acetaminophen/ Hydrocodone Bitart (Lortab 7.5/325) 1 tab PRN TID PRN PO MODERATE - SEVERE PAIN; Start 11/16/19 at 17:45 Nitroglycerin (Nitrostat) 0.4 mg PRN Q5MIN PRN SL CHEST PAIN; Start 11/16/19 at 17:45 Senna/Docusate Sodium (Senna Plus) 1 tab PRN DAILY PRN PO CONSTIPATION; Start 11/16/19 at 17:45 Carvedilol (Coreg) 12.5 mg BIDWMEALS PO Last administered on 11/17/19at 08:55; Start 11/16/19 at 18:00 Insulin Glargine (Lantus Syringe) 20 unit QHS SQ Last administered on 11/16/19at 21:41; Start 11/16/19 at 21:00 Levothyroxine Sodium (Synthroid) 200 mcg DAILY06 PO Last administered on 11/17/19at 06:30; Start 11/17/19 at 06:00 Ondansetron HCl (Zofran) 4 mg PRN Q8HRS PRN IV NAUSEA/VOMITING; Start 11/16/19 at 18:00; Stop 11/16/19 at 21:39; Status DC Morphine Sulfate (Morphine Sulfate) 2 mg PRN Q2HR PRN IV PAIN; Start 11/16/19 at 18:00; Stop 11/17/19 at 17:59 Acetaminophen (Tylenol) 650 mg PRN Q4HRS PRN PO FEVER; Start 11/16/19 at 18:00; Stop 11/17/19 at 17:59 Sodium Chloride 1,000 ml @ 125 mls/hr 1X ONCE IV Last administered on 11/16/19at 19:48; Start 11/16/19 at 18:00; Stop 11/17/19 at 01:59; Status DC Ondansetron HCl (Zofran) 4 mg PRN Q6HRS PRN IV NAUSEA/VOMITING; Start 11/16/19 at 21:45 Ceftriaxone Sodium (Rocephin) 1 gm Q24H IVP Last administered on 11/17/19at 08:55; Start 11/17/19 at 09:30 Magnesium Sulfate 100 ml @ 25 mls/hr 1X ONCE IV Last administered on 11/16/19at 22:06; Start 11/16/19 at 22:00; Stop 11/17/19 at 01:59; Status DC Enoxaparin Sodium (Lovenox 30mg Syringe) 30 mg Q24H SQ Last administered on 1 01/17/19at 22:06; Start 11/16/19 at 22:00 Insulin Human Lispro (HumaLOG) 0-7 UNITS TIDACHC SQ Last administered on 11/17/19at 08:57; Start 11/17/19 at 07:30 Dextrose (Dextrose 50%-Water Syringe) 12.5 gm PRN Q15MIN PRN IV SEE COMMENTS; Start 11/16/19 at 21:45 Dextrose (Iv Dextrose 5%) 250 ml PRN Q15MIN PRN IV SEE COMMENTS; Start 11/16/19 at 21:45 Active Scripts Active Novolog Flexpen (Insulin Aspart) 100 Unit/1 Ml Insuln.pen 100 Unit SQ TID PRN PRN Reported Lantus Solostar (Insulin Glargine,Hum.rec.anlog) 100 Unit/1 Ml Insuln.pen 20 Unit SQ QHS Senokot-S Tablet (Sennosides/Docusate Sodium) 1 Each Tablet 1 Each PO PRN DAILY PRN Benadryl (Diphenhydramine Hcl) 25 Mg Capsule 25 Mg PO PRN QHS PRN Acetaminophen 500 Mg Tablet 500 Mg PO PRN Q6HRS PRN Spironolactone 25 Mg Tablet 25 Mg PO DAILY Colace (Docusate Sodium) 100 Mg Capsule 100 Mg PO PRN DAILY PRN Coreg (Carvedilol) 25 Mg Tablet 12.5 Mg PO BIDWMEALS Nitrostat (Nitroglycerin) 0.4 Mg Tab.subl 0.4 Mg SL PRN Q5MIN PRN Hydrocodone-Apap 7.5-325 (Hydrocodone Bit/Acetaminophen) 1 Tab Tablet 1 Tab PO PRN TID PRN Synthroid (Levothyroxine Sodium) 200 Mcg Tablet 200 Mcg PO DAILY Vitals/I & O Vital Sign - Last 24 Hours 11/16/19 11/16/19 11/16/19 11/16/19 13:00 13:28 13:32 14:09 Temp 98.4 98.4 Pulse 82 67 69 72 Resp 27 B/P (MAP) 188/91 (123) Pulse Ox 98 96 95 96 O2 Delivery Room Air 11/16/19 11/16/19 11/16/19 11/16/19 14:34 18:24 19:00 19:51 Temp 98.6 98.6 Pulse 83 70 76 Resp 30 24 17 B/P (MAP) 148/63 (91) Pulse Ox 93 97 98 O2 Delivery Room Air Room Air 11/16/19 11/17/19 11/17/19 11/17/19 23:00 03:00 07:00 08:00 Temp 98.6 98.1 97.7 98.6 98.1 97.7 Pulse 82 79 71 Resp 18 18 14 B/P (MAP) 158/55 (89) 162/64 (96) 114/58 (76) Pulse Ox 90 92 95 O2 Delivery Room Air Room Air Room Air Room Air 11/17/19 08:55 Pulse 71 B/P (MAP) 114/58 Intake and Output 11/16/19 11/16/19 11/17/19 15:00 23:00 07:00 Intake Total 260 ml 400 ml Balance 260 ml 400 ml HILDA HERNANDEZ MD Nov 17, 2019 09:32
[2019-11-17 11:00] VITALS: BP 150/56
--- NOTE | 2019-11-17 13:00 | NUR ---
This RN noticed a new development of a rash on the pt's L hand, L forearm, L upper arm. The areas are reddened and some appear blistered. This RN circled the areas and left INFRASTRUCTURE DESIGN ENGINEER. Pt states that the areas are "a little itchy and burning." Dr. Moore notified. Will continue to monitor closely.
--- NOTE | 2019-11-17 13:45 | RAD ---
3 views lumbar spine compared to CT of the abdomen and pelvis dated June 09, 2013 for L2 pain after a fall last Wednesday, possible urinary tract infection. FINDINGS: There is no alignment abnormality of the lumbar spine. There is straightening of the normal lumbar lordosis. There is severe multilevel spondylosis with severe narrowing of the L4-5 and L5 intervertebral disc spaces, and bulky anterior and marginal flowing osteophytes at multiple levels of the lumbar spine likely resulting anterior fusion. Bulky facet arthrosis is seen in the lower lumbar levels as well. Extensive vascular calcifications are present. There are postsurgical changes of the abdomen. No compression fractures are identified. There is a lucency through the anterior osteophyte at the superior aspect of L4, which may represent a fracture through this osteophyte. This could be confirmed with MRI if clinically warranted. IMPRESSION: 1. Possible anterior osteophyte fracture at L4. This could be confirmed with MRI. No vertebral body compression fractures are identified. Electronically signed by: Cruzito Cash MD (11/17/2019 1:42 PM) [id number]
[2019-11-17] MEDS: valACYclovir 500 MG TABLET. PO SCH ×2 (14:57→22:08)
[2019-11-17 15:00] VITALS: BP 128/44
--- NOTE | 2019-11-17 15:25 | NUR ---
This RN applied medigrip and kerlex over pt's exposed rash on L hand and forearm. No drainage noted at this time. Will continue to monitor.
--- NOTE | 2019-11-17 17:29 | NUR ---
Nursing aircraft engine mechanic supervisor paged to place an IV. This RN and two other RN's have attempted previously. No IV medications due at this time. Will continue to monitor.
[2019-11-17 19:00] VITALS: BP 104/34
--- NOTE | 2019-11-17 20:26 | CONS ---
DATE OF CONSULTATION: 11/17/2019 ATTENDING PHYSICIAN: Demarcus Moore MD. REASON FOR CONSULTATION: The patient was seen at the request of Dr. Moore for rehab evaluation. HISTORY OF PRESENT ILLNESS: This is a 74-year-old female with known diabetes mellitus, hyperlipidemia, hypertension, coronary artery disease status post stenting. The patient lives with her daughter and son-in-law. She usually walks using a roller walker. The patient was admitted through the Emergency Room with some confusion and hallucinations, mostly visual. She is being treated with a tentative diagnosis of urinary tract infection. CT scan of the brain failed to reveal any acute abnormalities. She complains of back pain without any radiation and x-rays revealed degenerative disk disease and degenerative joint disease of lumbar vertebrae, mainly at L4-L5 level. The patient with chronic lower back pain and also degenerative joint disease of both knees. The patient usually uses a walker to get around and when she goes outside, she uses a wheelchair. PAST SURGICAL HISTORY: Status post appendectomy, cholecystectomy, tonsillectomy. FAMILY HISTORY: Diabetes mellitus and hypertension. She lost her in July. ALLERGIES: THE PATIENT IS KNOWN ALLERGIC TO HYDROCHLOROTHIAZIDE AND VALSARTAN. The patient since admission is also being treated with herpes zoster skin lesions, left upper extremity, mainly at the left thumb area with antiviral medications. The patient is being followed by physical therapy and occupational therapy. They noted her being independent with bed mobility, standby assistance for transfers and she uses a roller walker to walk for about 5 feet. The patient apparently had some problem with knees giving out, made her fall in the past, so she is worried about them. The patient had lubricant injection done to both knees finished in September of this year. PHYSICAL EXAMINATION: Today revealed an elderly female. She is alert, oriented to time, place, person and circumstance and follows commands appropriately, moves all 4 extremities voluntarily where she had 4+/5 grade muscle strength. Deep tendon reflexes are decreased overall. She had equal perception of touch and pinprick sensation bilaterally. She had crepitus on range of motion of both knee joints with knee joint effusion, left side more than right side and she had pain-free range of motion of both hip joints. She had painful limited movements of her lumbar spine and straight leg raising test is negative bilaterally. Localized tenderness to palpation over sacroiliac joint area and trochanteric bursa. The patient is independent with bed mobility. I have not tested her transfers or ambulation skills at present time. She had skin lesions over left thumb, both dorsal and palmar aspect. ASSESSMENT: Elderly female with chronic lower back pain from degenerative disk disease and degenerative joint disease of lumbar vertebrae without any clinical evidence of ongoing lumbar radiculopathy, also presents with bilateral trochanteric bursitis, degenerative joint disease of both knees, diabetes mellitus with peripheral neuropathy, obesity, coronary artery disease status post stenting, hypertension, hyperlipidemia, urinary urgency incontinence and hesitation and being treated for urinary tract infection right now. RECOMMENDATIONS: I have reviewed with her a home program of physical modalities and stretching exercises to her lower back and proper body mechanics and isometric strengthening exercise to her lower extremity muscle groups. If she keeps on having the knee giving out sensation, she needs an MRI scan of her knees to rule out any internal derangement. To consider injecting her sacroiliac joint and trochanteric bursa depending upon her pain interfering with her mobility. To check post-voiding urine residual to make sure she is emptying her bladder completely. Dr. Moore, I appreciate asking me to participate in the care of this interesting patient. I will be glad to see her for followup with you on as needed basis. PAWAN FLETCHER MD DR: YARA/marlo JOB#: [id number] / [id number]
[2019-11-17] MEDS: ASCORBIC ACID 500 MG TABLET PO SCH (22:08)
[2019-11-17] MEDS: LACTOBACILLUS RHAMNOSUS GG 1 CAPSULE. PO SCH (22:09)
[2019-11-17] MEDS: INSULIN GLARGINE SYRINGE. SQ SCH (22:12)
[2019-11-17] MEDS: DICLOFENAC SODIUM 1% TOPICAL GEL 100GM TUBE. TP SCH (22:14)
[2019-11-17] MEDS: ENOXAPARIN 40 MG/0.4 ML SYRINGE. SQ SCH (22:14)
[2019-11-17] MEDS: HYDROcodone/APAP 7.5/325MG 1 TAB TABLET PO PRN (22:16)
[2019-11-17 23:00] VITALS: BP 154/62
--- NOTE | 2019-11-18 00:51 | NUR ---
bladder scan noted 40 cc urine only
[2019-11-18 03:00] VITALS: BP 145/63
[2019-11-18] MEDS: LEVOTHYROXINE 100 MCG TABLET PO SCH (05:20)
[2019-11-18] MEDS: HYDROcodone/APAP 7.5/325MG 1 TAB TABLET PO PRN ×2 (05:21→21:01)
[2019-11-18 07:00] VITALS: BP 119/49
[2019-11-18] MEDS: CARVEDILOL 12.5 MG TABLET. PO SCH ×2 (08:07→16:48)
[2019-11-18] MEDS: INSULIN LISPRO 300 UNITS/3 ML VIAL. SQ SCH ×4 (08:10→21:03)
--- NOTE | 2019-11-18 08:47 | PDOC ---
PROGRESS NOTES Chief Complaint Chief Complaint A/P: Acute encephalopathy - likely 2/2 UTI vs hyponatremia UTI - will treat empirically with rocephin, f/u culture results Urinary incontinence - will have bladder training with OT Morbid obesity BMI 50 - counseled on weight loss Lower back pain - new onset, relatively, with her recent falls and confusion, will obtain lumbar X-ray to r/o acute pathology Bilateral knee pain left greater than right - improved after prior injections Diabetes type 2 uncontrolled - will place on basal bolus plus regimen in house Hypertension, controlled - cont meds Hyponatremia - will give IVF, this seems hypovolemic Hypomagnesemia - will replace, check in AM Hypothyroidism - TSH WNL, will cont 200mcg levothyroxine dosing Rash - on left arm, appears vesicular, slightly painful, with the distribution will treat as shingles FEN - ADA diet PPX - lovenox FULL CODE Dispo -inpatient likely 2 midnights History of Present Illness History of Present Illness Ms Kenney is a 74yo F w/ PMHx DM2, HLD, HTN, CAD s/p stenting who p/w 2 other family members due to confusion and hallucinations, mostly visual. The patient is aware of this and the confusion. She does note a few recent falls, though they were "soft". She c/o some dysuria as well as some mid lower back pain. She has previously been confused with UTIs per family. Labs significant for grossly abnormal UA, cultured and started on rocephin. She was also noted with Na of 128, glucose of 309, Mg 1.4, microcytic anemia, and underwent CXR and CT both of which were negative for acute pathology. EKG wa s NSR. 11/17: Overnight started feeling a bit better. This morning she lost IV access, now has a rash on her left hand and arm, vesicular, a bit painful. Shingles feeling better. She just wishes to rest today. Still very weak. No CP or SOB Plan: Treat shingles 1000mg TID valtrex Vitals Vitals Vital Signs Date Time Temp Pulse Resp B/P (MAP) Pulse Ox O2 Delivery O2 Flow Rate FiO2 11/18/19 08:07 61 119/49 11/18/19 07:00 98.1 16 91 Room Air 98.1 Physical Exam General: Alert, Cooperative, No acute distress, Other (Confused, oriented to person) Lungs: Clear Abdomen: Normal bowel sounds, Soft, No tenderness, No hepatosplenomegaly, No masses Extremities: No clubbing, No cyanosis, No edema, Normal pulses, Other (Focal L3-4 pain on palpation) Skin: No rashes, No breakdown, No significant lesion Labs LABS Laboratory Tests Test 11/17/19 11:44 11/17/19 16:56 11/17/19 20:52 11/18/19 07:55 Glucose (Fingerstick) 209 mg/dL (70-99) 191 mg/dL (70-99) 225 mg/dL (70-99) 168 mg/dL (70-99) Assessment and Plan Assessmemt and Plan Problems Medical Problems: (1) Altered mental status Status: Acute (2) Hyperglycemia Status: Acute (3) Urinary tract infection Status: Acute Comment Review of Relevant I have reviewed the following items jina (where applicable) has been applied. Labs Laboratory Tests Test 11/16/19 13:25 11/16/19 14:00 11/16/19 21:27 11/17/19 05:10 White Blood Count 8.4 x10^3/uL (4.0-11.0) Red Blood Count 4.61 x10^6/uL (3.50-5.40) Hemoglobin 11.1 g/dL (12.0-15.5) Hematocrit 34.6 % (36.0-47.0) Mean Corpuscular Volume 75 fL (79-100) Mean Corpuscular Hemoglobin 24 pg (25-35) Mean Corpuscular Hemoglobin Concent 32 g/dL (31-37) Red Cell Distribution Width 16.4 % (11.5-14.5) Platelet Count 254 x10^3/uL (140-400) Neutrophils (%) (Auto) 66 % (31-73) Lymphocytes (%) (Auto) 24 % (24-48) Monocytes (%) (Auto) 8 % (0-9) Eosinophils (%) (Auto) 1 % (0-3) Basophils (%) (Auto) 1 % (0-3) Neutrophils # (Auto) 5.5 x10^3/uL (1.8-7.7) Lymphocytes # (Auto) 2.0 x10^3/uL (1.0-4.8) Monocytes # (Auto) 0.7 x10^3/uL (0.0-1.1) Eosinophils # (Auto) 0.1 x10^3/uL (0.0-0.7) Basophils # (Auto) 0.0 x10^3/uL (0.0-0.2) Sodium Level 128 mmol/L (136-145) 130 mmol/L (136-145) Potassium Level 4.0 mmol/L (3.5-5.1) 3.7 mmol/L (3.5-5.1) Chloride Level 92 mmol/L (98-107) 97 mmol/L (98-107) Carbon Dioxide Level 28 mmol/L (21-32) 28 mmol/L (21-32) Anion Gap 8 (6-14) 5 (6-14) Blood Urea Nitrogen 23 mg/dL (7-20) 17 mg/dL (7-20) Creatinine 1.1 mg/dL (0.6-1.0) 0.9 mg/dL (0.6-1.0) Estimated GFR (Cockcroft-Gault) 48.3 60.9 BUN/Creatinine Ratio 21 (6-20) Glucose Level 309 mg/dL (70-99) 227 mg/dL (70-99) Calcium Level 9.3 mg/dL (8.5-10.1) 8.8 mg/dL (8.5-10.1) Magnesium Level 1.4 mg/dL (1.8-2.4) Iron Level 43 ug/dL (50-170) Total Iron Binding Capacity 364 ug/dL (250-450) Iron Saturation 12 % (15-34) Total Bilirubin 0.5 mg/dL (0.2-1.0) Aspartate Amino Transf (AST/SGOT) 19 U/L (15-37) Alanine Aminotransferase (ALT/SGPT) 13 U/L (14-59) Alkaline Phosphatase 128 U/L (46-116) Creatine Kinase 333 U/L (26-192) Creatine Kinase MB (Mass) 2.3 ng/mL (0.0-3.6) Creatine Kinase MB Relative Index 0.7 % (0-4) Troponin I Quantitative < 0.017 ng/mL (0.000-0.055) KY-Xxq-[id number]-Type Natriuretic Peptide 708 pg/mL (0-449) Total Protein 7.6 g/dL (6.4-8.2) Albumin 3.3 g/dL (3.4-5.0) Albumin/Globulin Ratio 0.8 (1.0-1.7) Lipase 40 U/L (73-393) Vitamin B12 Level 270 pg/mL (247-911) Thyroid Stimulating Hormone (TSH) 0.649 uIU/mL (0.358-3.74) Urine Collection Type Unknown Urine Color Yellow Urine Clarity Cloudy Urine pH 6.0 Urine Specific [place] 1.020 Urine Protein 30 mg/dL (NEG-TRACE) Urine Glucose (UA) >=1000 mg/dL (NEG) Urine Ketones (Stick) Negative mg/dL (NEG) Urine Blood Large (NEG) Urine Nitrite Negative (NEG) Urine Bilirubin Negative (NEG) Urine Urobilinogen Dipstick 1.0 mg/dL (0.2 mg/dL) Urine Leukocyte Esterase Large (NEG) Urine RBC >40 /HPF (0-2) Urine WBC Tntc /HPF (0-4) Urine Squamous Epithelial Cells Occ /LPF Urine Bacteria Few /HPF (0-FEW) Urine Opiates Screen Pos (NEG) Urine Methadone Screen Neg (NEG) Urine Barbiturates Neg (NEG) Urine Phencyclidine Screen Neg (NEG) Urine Amphetamine/Methamphetamine Neg (NEG) Urine Benzodiazepines Screen Neg (NEG) Urine Cocaine Screen Neg (NEG) Urine Cannabinoids Screen Neg (NEG) Urine Ethyl Alcohol Neg (NEG) Glucose (Fingerstick) 284 mg/dL (70-99) Test 11/17/19 08:42 11/17/19 11:44 11/17/19 16:56 11/17/19 20:52 Glucose (Fingerstick) 218 mg/dL (70-99) 209 mg/dL (70-99) 191 mg/dL (70-99) 225 mg/dL (70-99) Test 11/18/19 07:55 Glucose (Fingerstick) 168 mg/dL (70-99) Laboratory Tests Test 11/17/19 11:44 11/17/19 16:56 11/17/19 20:52 11/18/19 07:55 Glucose (Fingerstick) 209 mg/dL (70-99) 191 mg/dL (70-99) 225 mg/dL (70-99) 168 mg/dL (70-99) Microbiology 11/16/19 Urine Culture - Final, Complete 11/16/19 Urine Culture Result 1 (HARITHA) - Final, Complete Medications Current Medications Sodium Chloride 1,000 ml @ 1,000 mls/hr 1X ONCE IV Last administered on 11/16/19at 14:43; Start 11/16/19 at 14:15; Stop 11/16/19 at 15:14; Status DC Ceftriaxone Sodium (Rocephin) 1 gm 1X ONCE IVP Last administered on 11/16/19at 17:20; Start 11/16/19 at 16:30; Stop 11/16/19 at 16:31; Status DC Acetaminophen (Tylenol) 500 mg PRN Q6HRS PRN PO MILD PAIN 1-3 Last administered on 11/17/19at 15:02; Start 11/16/19 at 17:45 Docusate Sodium (Colace) 100 mg PRN DAILY PRN PO CONSTIPATION; Start 11/16/19 at 17:45 Acetaminophen/ Hydrocodone Bitart (Lortab 7.5/325) 1 tab PRN TID PRN PO MODERATE - SEVERE PAIN Last administered on 11/18/19at 05:21; Start 11/16/19 at 17:45 Nitroglycerin (Nitrostat) 0.4 mg PRN Q5MIN PRN SL CHEST PAIN; Start 11/16/19 at 17:45 Senna/Docusate Sodium (Senna Plus) 1 tab PRN DAILY PRN PO CONSTIPATION; Start 11/16/19 at 17:45 Carvedilol (Coreg) 12.5 mg BIDWMEALS PO Last administered on 11/18/19at 08:07; Start 11/16/19 at 18:00 Insulin Glargine (Lantus Syringe) 20 unit QHS SQ Last administered on 11/17/19at 22:12; Start 11/16/19 at 21:00 Levothyroxine Sodium (Synthroid) 200 mcg DAILY06 PO Last administered on 10/23 05:20; Start 11/17/19 at 06:00 Ondansetron HCl (Zofran) 4 mg PRN Q8HRS PRN IV NAUSEA/VOMITING; Start 11/16/19 at 18:00; Stop 11/16/19 at 21:39; Status DC Morphine Sulfate (Morphine Sulfate) 2 mg PRN Q2HR PRN IV PAIN; Start 11/16/19 at 18:00; Stop 11/17/19 at 17:59; Status DC Acetaminophen (Tylenol) 650 mg PRN Q4HRS PRN PO FEVER; Start 11/16/19 at 18:00; Stop 11/17/19 at 17:07; Status DC Sodium Chloride 1,000 ml @ 125 mls/hr 1X ONCE IV Last administered on 11/16/19at 19:48; Start 11/16/19 at 18:00; Stop 11/17/19 at 01:59; Status DC Ondansetron HCl (Zofran) 4 mg PRN Q6HRS PRN IV NAUSEA/VOMITING; Start 11/16/19 at 21:45 Ceftriaxone Sodium (Rocephin) 1 gm Q24H IVP Last administered on 11/17/19at 08:55; Start 11/17/19 at 09:30 Magnesium Sulfate 100 ml @ 25 mls/hr 1X ONCE IV Last administered on 11/16/19at 22:06; Start 11/16/19 at 22:00; Stop 11/17/19 at 01:59; Status DC Enoxaparin Sodium (Lovenox 30mg Syringe) 30 mg Q24H SQ Last administered on 11/16/19at 22:06; Start 11/16/19 at 22:00; Stop 11/17/19 at 17:12; Status DC Insulin Human Lispro (HumaLOG) 0-7 UNITS TIDACHC SQ Last administered on 11/18/19at 08:10; Start 11/17/19 at 07:30 Dextrose (Dextrose 50%-Water Syringe) 12.5 gm PRN Q15MIN PRN IV SEE COMMENTS; Start 11/16/19 at 21:45 Dextrose (Iv Dextrose 5%) 250 ml PRN Q15MIN PRN IV SEE COMMENTS; Start 11/16/19 at 21:45 Valacyclovir HCl (Valtrex) 1,000 mg TID PO Last administered on 11/17/19at 22:08; Start 11/17/19 at 14:30 Ascorbic Acid (Vitamin C) 500 mg BID PO Last administered on 11/17/19at 22:08; Start 11/17/19 at 21:00 Diclofenac Sodium (Voltaren) 1 loulou BID TP Last administered on 11/17/19at 22:14; Start 11/17/19 at 21:00 Enoxaparin Sodium (Lovenox 40mg Syringe) 40 mg Q12H SQ Last administered on 11/17/19at 22:14; Start 11/17/19 at 21:00 Lactobacillus Rhamnosus (Culturelle) 1 cap BID PO Last administered on 11/17/19at 22:09; Start 11/17/19 at 21:00 Active Scripts Active Novolog Flexpen (Insulin Aspart) 100 Unit/1 Ml Insuln.pen 100 Unit SQ TID PRN PRN Reported Lantus Solostar (Insulin Glargine,Hum.rec.anlog) 100 Unit/1 Ml Insuln.pen 20 Unit SQ QHS Senokot-S Tablet (Sennosides/Docusate Sodium) 1 Each Tablet 1 Each PO PRN DAILY PRN Benadryl (Diphenhydramine Hcl) 25 Mg Capsule 25 Mg PO PRN QHS PRN Acetaminophen 500 Mg Tablet 500 Mg PO PRN Q6HRS PRN Spironolactone 25 Mg Tablet 25 Mg PO DAILY Colace (Docusate Sodium) 100 Mg Capsule 100 Mg PO PRN DAILY PRN Coreg (Carvedilol) 25 Mg Tablet 12.5 Mg PO BIDWMEALS Nitrostat (Nitroglycerin) 0.4 Mg Tab.subl 0.4 Mg SL PRN Q5MIN PRN Hydrocodone-Apap 7.5-325 (Hydrocodone Bit/Acetaminophen) 1 Tab Tablet 1 Tab PO PRN TID PRN Synthroid (Levothyroxine Sodium) 200 Mcg Tablet 200 Mcg PO DAILY Vitals/I & O Vital Sign - Last 24 Hours 11/17/19 11/17/19 11/17/19 11/17/19 08:55 11:00 15:00 17:24 Temp 98.4 98.7 98.4 98.7 Pulse 71 68 70 70 Resp 14 14 B/P (MAP) 114/58 150/56 (87) 128/44 (72) 128/44 Pulse Ox 98 95 O2 Delivery Room Air Room Air 11/17/19 11/17/19 11/17/19 11/17/19 19:00 20:00 22:16 23:00 Temp 98.4 98.6 98.4 98.6 Pulse 62 65 Resp 18 18 22 B/P (MAP) 104/34 (57) 154/62 (92) Pulse Ox 95 95 92 O2 Delivery Room Air Room Air Room Air Room Air 11/17/19 11/18/19 11/18/19 11/18/19 23:16 03:00 05:21 06:21 Temp 98.4 98.4 Pulse 61 Resp 18 18 18 18 B/P (MAP) 145/63 (90) Pulse Ox 95 95 95 95 O2 Delivery Room Air Room Air Room Air Room Air 11/18/19 11/18/19 07:00 08:07 Temp 98.1 98.1 Pulse 61 61 Resp 16 B/P (MAP) 119/49 (72) 119/49 Pulse Ox 91 O2 Delivery Room Air Intake and Output 11/17/19 11/17/19 11/18/19 15:00 23:00 07:00 Intake Total 580 ml 300 ml 290 ml Output Total 1400 ml Balance -820 ml 300 ml 290 ml HILDA HERNANDEZ MD Nov 18, 2019 08:47
[2019-11-18] MEDS: ASCORBIC ACID 500 MG TABLET PO SCH ×2 (09:17→21:00)
[2019-11-18] MEDS: ENOXAPARIN 40 MG/0.4 ML SYRINGE. SQ SCH ×2 (09:17→20:59)
[2019-11-18] MEDS: valACYclovir 500 MG TABLET. PO SCH ×3 (09:17→21:00)
[2019-11-18] MEDS: LACTOBACILLUS RHAMNOSUS GG 1 CAPSULE. PO SCH ×2 (09:17→21:01)
[2019-11-18] MEDS: DICLOFENAC SODIUM 1% TOPICAL GEL 100GM TUBE. TP SCH ×2 (09:18→21:04)
--- NOTE | 2019-11-18 09:35 | NUR ---
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 Page to Dr. Moore regards IV antibiotic. See nursing communication.
--- NOTE | 2019-11-18 10:05 | NUR ---
Dr. Moore returned call, see orders.
--- NOTE | 2019-11-18 10:55 | PDOC ---
PROGRESS NOTES Subjective Subjective She admits some easing of her back pain but would like to have injection to her back while here. Objective Objective Vital Signs Date Time Temp Pulse Resp B/P (MAP) Pulse Ox O2 Delivery O2 Flow Rate FiO2 11/18/19 08:07 61 119/49 11/18/19 08:00 Room Air 11/18/19 07:00 98.1 16 91 98.1 Intake and Output 11/18/19 07:00 Intake Total 1170 ml Output Total 1400 ml Balance -230 ml Intake Oral 1170 ml Output Urine Total 1400 ml # Voids 2 # Bowel Movements 1 Physical Exam Physical Exam She is alert,supine in bed and she continues with tenderness to palpation over sacroiliac joints and trochanteric bursa area bilaterally with painfully limited lumbar spine ROM. Post voiding urine residual about 40 ml. acceptable and remains incontinent of urine. Assessment Assessment Problems Medical Problems: (1) Altered mental status Status: Acute (2) Hyperglycemia Status: Acute (3) Urinary tract infection Status: Acute Plan Plan of Care To consider injecting painful right sacroiliac joint when medically stable from her UTI and herpes zoster infection. To get her up as tolerated. Comment Review of Relevant I have reviewed the following items jina (where applicable) has been applied. Labs Laboratory Tests Test 11/16/19 13:25 11/16/19 14:00 11/16/19 21:27 11/17/19 05:10 White Blood Count 8.4 x10^3/uL (4.0-11.0) Red Blood Count 4.61 x10^6/uL (3.50-5.40) Hemoglobin 11.1 g/dL (12.0-15.5) Hematocrit 34.6 % (36.0-47.0) Mean Corpuscular Volume 75 fL (79-100) Mean Corpuscular Hemoglobin 24 pg (25-35) Mean Corpuscular Hemoglobin Concent 32 g/dL (31-37) Red Cell Distribution Width 16.4 % (11.5-14.5) Platelet Count 254 x10^3/uL (140-400) Neutrophils (%) (Auto) 66 % (31-73) Lymphocytes (%) (Auto) 24 % (24-48) Monocytes (%) (Auto) 8 % (0-9) Eosinophils (%) (Auto) 1 % (0-3) Basophils (%) (Auto) 1 % (0-3) Neutrophils # (Auto) 5.5 x10^3/uL (1.8-7.7) Lymphocytes # (Auto) 2.0 x10^3/uL (1.0-4.8) Monocytes # (Auto) 0.7 x10^3/uL (0.0-1.1) Eosinophils # (Auto) 0.1 x10^3/uL (0.0-0.7) Basophils # (Auto) 0.0 x10^3/uL (0.0-0.2) Sodium Level 128 mmol/L (136-145) 130 mmol/L (136-145) Potassium Level 4.0 mmol/L (3.5-5.1) 3.7 mmol/L (3.5-5.1) Chloride Level 92 mmol/L (98-107) 97 mmol/L (98-107) Carbon Dioxide Level 28 mmol/L (21-32) 28 mmol/L (21-32) Anion Gap 8 (6-14) 5 (6-14) Blood Urea Nitrogen 23 mg/dL (7-20) 17 mg/dL (7-20) Creatinine 1.1 mg/dL (0.6-1.0) 0.9 mg/dL (0.6-1.0) Estimated GFR (Cockcroft-Gault) 48.3 60.9 BUN/Creatinine Ratio 21 (6-20) Glucose Level 309 mg/dL (70-99) 227 mg/dL (70-99) Calcium Level 9.3 mg/dL (8.5-10.1) 8.8 mg/dL (8.5-10.1) Magnesium Level 1.4 mg/dL (1.8-2.4) Iron Level 43 ug/dL (50-170) Total Iron Binding Capacity 364 ug/dL (250-450) Iron Saturation 12 % (15-34) Total Bilirubin 0.5 mg/dL (0.2-1.0) Aspartate Amino Transf (AST/SGOT) 19 U/L (15-37) Alanine Aminotransferase (ALT/SGPT) 13 U/L (14-59) Alkaline Phosphatase 128 U/L (46-116) Creatine Kinase 333 U/L (26-192) Creatine Kinase MB (Mass) 2.3 ng/mL (0.0-3.6) Creatine Kinase MB Relative Index 0.7 % (0-4) Troponin I Quantitative < 0.017 ng/mL (0.000-0.055) FW-Mip-N-Type Natriuretic Peptide 708 pg/mL (0-449) Total Protein 7.6 g/dL (6.4-8.2) Albumin 3.3 g/dL (3.4-5.0) Albumin/Globulin Ratio 0.8 (1.0-1.7) Lipase 40 U/L (73-393) Vitamin B12 Level 270 pg/mL (247-911) Thyroid Stimulating Hormone (TSH) 0.649 uIU/mL (0.358-3.74) Urine Collection Type Unknown Urine Color Yellow Urine Clarity Cloudy Urine pH 6.0 Urine Specific [place] 1.020 Urine Protein 30 mg/dL (NEG-TRACE) Urine Glucose (UA) >=1000 mg/dL (NEG) Urine Ketones (Stick) Negative mg/dL (NEG) Urine Blood Large (NEG) Urine Nitrite Negative (NEG) Urine Bilirubin Negative (NEG) Urine Urobilinogen Dipstick 1.0 mg/dL (0.2 mg/dL) Urine Leukocyte Esterase Large (NEG) Urine RBC >40 /HPF (0-2) Urine WBC Tntc /HPF (0-4) Urine Squamous Epithelial Cells Occ /LPF Urine Bacteria Few /HPF (0-FEW) Urine Opiates Screen Pos (NEG) Urine Methadone Screen Neg (NEG) Urine Barbiturates Neg (NEG) Urine Phencyclidine Screen Neg (NEG) Urine Amphetamine/Methamphetamine Neg (NEG) Urine Benzodiazepines Screen Neg (NEG) Urine Cocaine Screen Neg (NEG) Urine Cannabinoids Screen Neg (NEG) Urine Ethyl Alcohol Neg (NEG) Glucose (Fingerstick) 284 mg/dL (70-99) Test 11/17/19 08:42 11/17/19 11:44 11/17/19 16:56 11/17/19 20:52 Glucose (Fingerstick) 218 mg/dL (70-99) 209 mg/dL (70-99) 191 mg/dL (70-99) 225 mg/dL (70-99) Test 11/18/19 07:55 Glucose (Fingerstick) 168 mg/dL (70-99) Laboratory Tests Test 11/17/19 11:44 11/17/19 16:56 11/17/19 20:52 11/18/19 07:55 Glucose (Fingerstick) 209 mg/dL (70-99) 191 mg/dL (70-99) 225 mg/dL (70-99) 168 mg/dL (70-99) Microbiology 11/16/19 Urine Culture - Final, Complete 11/16/19 Urine Culture Result 1 (HARITHA) - Final, Complete Medications Current Medications Sodium Chloride 1,000 ml @ 1,000 mls/hr 1X ONCE IV Last administered on 11/16/19at 14:43; Start 11/16/19 at 14:15; Stop 11/16/19 at 15:14; Status DC Ceftriaxone Sodium (Rocephin) 1 gm 1X ONCE IVP Last administered on 11/16/19at 17:20; Start 11/16/19 at 16:30; Stop 11/16/19 at 16:31; Status DC Acetaminophen (Tylenol) 500 mg PRN Q6HRS PRN PO MILD PAIN 1-3 Last administered on 11/17/19at 15:02; Start 11/16/19 at 17:45 Docusate Sodium (Colace) 100 mg PRN DAILY PRN PO CONSTIPATION; Start 11/16/19 at 17:45 Acetaminophen/ Hydrocodone Bitart (Lortab 7.5/325) 1 tab PRN TID PRN PO MODERATE - SEVERE PAIN Last administered on 11/18/19at 05:21; Start 11/16/19 at 17:45 Nitroglycerin (Nitrostat) 0.4 mg PRN Q5MIN PRN SL CHEST PAIN; Start 11/16/19 at 17:45 Senna/Docusate Sodium (Senna Plus) 1 tab PRN DAILY PRN PO CONSTIPATION; Start 11/16/19 at 17:45 Carvedilol (Coreg) 12.5 mg BIDWMEALS PO Last administered on 11/18/19at 08:07; Start 11/16/19 at 18:00 Insulin Glargine (Lantus Syringe) 20 unit QHS SQ Last administered on 11/17/19at 22:12; Start 11/16/19 at 21:00 Levothyroxine Sodium (Synthroid) 200 mcg DAILY06 PO Last administered on 11/18/19at 05:20; Start 11/17/19 at 06:00 Ondansetron HCl (Zofran) 4 mg PRN Q8HRS PRN IV NAUSEA/VOMITING; Start 11/16/19 at 18:00; Stop 11/16/19 at 21:39; Status DC Morphine Sulfate (Morphine Sulfate) 2 mg PRN Q2HR PRN IV PAIN; Start 11/16/19 at 18:00; Stop 11/17/19 at 17:59; Status DC Acetaminophen (Tylenol) 650 mg PRN Q4HRS PRN PO FEVER; Start 11/16/19 at 18:00; Stop 11/17/19 at 17:07; Status DC Sodium Chloride 1,000 ml @ 125 mls/hr 1X ONCE IV Last administered on 11/16/19at 19:48; Start 11/16/19 at 18:00; Stop 11/17/19 at 01:59; Status DC Ondansetron HCl (Zofran) 4 mg PRN Q6HRS PRN IV NAUSEA/VOMITING; Start 11/16/19 at 21:45 Ceftriaxone Sodium (Rocephin) 1 gm Q24H IVP Last administered on 11/17/19at 08:55; Start 11/17/19 at 09:30; Stop 11/18/19 at 10:05; Status DC Magnesium Sulfate 100 ml @ 25 mls/hr 1X ONCE IV Last administered on 11/16/19at 22:06; Start 11/16/19 at 22:00; Stop 11/17/19 at 01:59; Status DC Enoxaparin Sodium (Lovenox 30mg Syringe) 30 mg Q24H SQ Last administered on 11/16/19at 22:06; Start 11/16/19 at 22:00; Stop 11/17/19 at 17:12; Status DC Insulin Human Lispro (HumaLOG) 0-7 UNITS TIDACHC SQ Last administered on 11/18/19at 08:10; Start 11/17/19 at 07:30 Dextrose (Dextrose 50%-Water Syringe) 12.5 gm PRN Q15MIN PRN IV SEE COMMENTS; Start 11/16/19 at 21:45 Dextrose (Iv Dextrose 5%) 250 ml PRN Q15MIN PRN IV SEE COMMENTS; Start 11/16/19 at 21:45 Valacyclovir HCl (Valtrex) 1,000 mg TID PO Last administered on 11/18/19 09:17; Start 11/17/19 at 14:30 Ascorbic Acid (Vitamin C) 500 mg BID PO Last administered on 11/18/19at 09:17; Start 11/17/19 at 21:00 Diclofenac Sodium (Voltaren) 1 loulou BID TP Last administered on 11/18/19 09:18; Start 11/17/19 at 21:00 Enoxaparin Sodium (Lovenox 40mg Syringe) 40 mg Q12H SQ Last administered on 11/18/19at 09:17; Start 11/17/19 at 21:00 Lactobacillus Rhamnosus (Culturelle) 1 cap BID PO Last administered on 11/18/19 09:17; Start 11/17/19 at 21:00 Cefdinir (Omnicef) 300 mg BID PO ; Start 11/18/19 at 10:15 Active Scripts Active Novolog Flexpen (Insulin Aspart) 100 Unit/1 Ml Insuln.pen 100 Unit SQ TID PRN PRN Reported Lantus Solostar (Insulin Glargine,Hum.rec.anlog) 100 Unit/1 Ml Insuln.pen 20 Unit SQ QHS Senokot-S Tablet (Sennosides/Docusate Sodium) 1 Each Tablet 1 Each PO PRN DAILY PRN Benadryl (Diphenhydramine Hcl) 25 Mg Capsule 25 Mg PO PRN QHS PRN Acetaminophen 500 Mg Tablet 500 Mg PO PRN Q6HRS PRN Spironolactone 25 Mg Tablet 25 Mg PO DAILY Colace (Docusate Sodium) 100 Mg Capsule 100 Mg PO PRN DAILY PRN Coreg (Carvedilol) 25 Mg Tablet 12.5 Mg PO BIDWMEALS Nitrostat (Nitroglycerin) 0.4 Mg Tab.subl 0.4 Mg SL PRN Q5MIN PRN Hydrocodone-Apap 7.5-325 (Hydrocodone Bit/Acetaminophen) 1 Tab Tablet 1 Tab PO PRN TID PRN Synthroid (Levothyroxine Sodium) 200 Mcg Tablet 200 Mcg PO DAILY Vitals/I & O Vital Sign - Last 24 Hours 11/17/19 11/17/19 11/17/19 11/17/19 11:00 15:00 17:24 19:00 Temp 98.4 98.7 98.4 98.4 98.7 98.4 Pulse 68 70 70 62 Resp 14 14 18 B/P (MAP) 150/56 (87) 128/44 (72) 128/44 104/34 (57) Pulse Ox 98 95 95 O2 Delivery Room Air Room Air Room Air 11/17/19 11/17/19 11/17/19 11/17/19 20:00 22:16 23:00 23:16 Temp 98.6 98.6 Pulse 65 Resp 18 22 18 B/P (MAP) 154/62 (92) Pulse Ox 95 92 95 O2 Delivery Room Air Room Air Room Air Room Air 11/18/19 11/18/19 11/18/19 11/18/19 03:00 05:21 06:21 07:00 Temp 98.4 98.1 98.4 98.1 Pulse 61 61 Resp 18 18 18 16 B/P (MAP) 145/63 (90) 119/49 (72) Pulse Ox 95 95 95 91 O2 Delivery Room Air Room Air Room Air Room Air 11/18/19 11/18/19 08:00 08:07 Pulse 61 B/P (MAP) 119/49 O2 Delivery Room Air Intake and Output 11/17/19 11/17/19 11/18/19 15:00 23:00 07:00 Intake Total 580 ml 300 ml 290 ml Output Total 1400 ml Balance -820 ml 300 ml 290 ml PAWAN FLETCHER MD Nov 18, 2019 10:55
[2019-11-18 11:00] VITALS: BP 129/57
[2019-11-18] MEDS: CEFDINIR 300 MG CAPSULE PO SCH ×2 (11:16→21:01)
[2019-11-18] MEDS ORDERED: CYANOCOBALAMIN (VITAMIN B-12) 1,000 MCG/ML VIAL IM ONE (11:30)
[2019-11-18 15:00] VITALS: BP 128/59
[2019-11-18 19:00] VITALS: BP 158/69
[2019-11-18] MEDS: INSULIN GLARGINE SYRINGE. SQ SCH (21:03)
[2019-11-18 23:00] VITALS: BP 125/47
[2019-11-19 03:00] VITALS: BP 123/55
[2019-11-19] MEDS: LEVOTHYROXINE 100 MCG TABLET PO SCH (05:36)
[2019-11-19 07:00] VITALS: BP 154/58
[2019-11-19] MEDS: CARVEDILOL 12.5 MG TABLET. PO SCH ×2 (08:06→17:01)
[2019-11-19] MEDS: CYANOCOBALAMIN (VITAMIN B-12) 1,000 MCG TABLET. PO SCH (08:06)
[2019-11-19] MEDS: LACTOBACILLUS RHAMNOSUS GG 1 CAPSULE. PO SCH ×2 (08:06→20:51)
[2019-11-19] MEDS: ASCORBIC ACID 500 MG TABLET PO SCH ×2 (08:06→20:51)
[2019-11-19] MEDS: CEFDINIR 300 MG CAPSULE PO SCH ×2 (08:06→20:51)
[2019-11-19] MEDS: valACYclovir 500 MG TABLET. PO SCH ×3 (08:07→20:51)
[2019-11-19] MEDS: ENOXAPARIN 40 MG/0.4 ML SYRINGE. SQ SCH ×2 (08:07→20:56)
[2019-11-19] MEDS: DICLOFENAC SODIUM 1% TOPICAL GEL 100GM TUBE. TP SCH ×2 (08:08→20:55)
[2019-11-19] MEDS: INSULIN LISPRO 300 UNITS/3 ML VIAL. SQ SCH ×4 (08:15→20:55)
--- NOTE | 2019-11-19 09:08 | PDOC ---
PROGRESS NOTES Chief Complaint Chief Complaint A/P: Acute encephalopathy - likely 2/2 UTI vs hyponatremia UTI - will treat empirically with rocephin, f/u culture results Urinary incontinence - will have bladder training with OT Morbid obesity BMI 50 - counseled on weight loss Lower back pain - new onset, relatively, with her recent falls and confusion, will obtain lumbar X-ray to r/o acute pathology Bilateral knee pain left greater than right - improved after prior injections Diabetes type 2 uncontrolled - will place on basal bolus plus regimen in house Hypertension, controlled - cont meds Hyponatremia - will give IVF, this seems hypovolemic Hypomagnesemia - will replace, check in AM Hypothyroidism - TSH WNL, will cont 200mcg levothyroxine dosing Rash - on left arm, appears vesicular, slightly painful, with the distribution will treat as shingles FEN - ADA diet PPX - lovenox FULL CODE Dispo -inpatient likely 2 midnights History of Present Illness History of Present Illness Ms Kenney is a 74yo F w/ PMHx DM2, HLD, HTN, CAD s/p stenting who p/w 2 other family members due to confusion and hallucinations, mostly visual. The patient is aware of this and the confusion. She does note a few recent falls, though they were "soft". She c/o some dysuria as well as some mid lower back pain. She has previously been confused with UTIs per family. Labs significant for grossly abnormal UA, cultured and started on rocephin. She was also noted with Na of 128, glucose of 309, Mg 1.4, microcytic anemia, and underwent CXR and CT both of which were negative for acute pathology. EKG wa s NSR. 11/17: Overnight started feeling a bit better. This morning she lost IV access, now has a rash on her left hand and arm, vesicular, a bit painful. 11/18 Shingles feeling better. She just wishes to rest today. Still very weak. No CP or SOB Left shoulder hurting, shingles better. No cough. She is tearful, thinks she needs her prozac. Still grieving over the loss of her in July and trying to evict her daughter in law. Plan: Treat shingles 1000mg TID valtrex Vitals Vitals Vital Signs Date Time Temp Pulse Resp B/P (MAP) Pulse Ox O2 Delivery O2 Flow Rate FiO2 11/19/19 08:06 58 154/58 11/19/19 07:00 97.7 19 95 Room Air 97.7 Physical Exam General: Alert, Cooperative, No acute distress, Other (Confused, oriented to person) Lungs: Clear Abdomen: Normal bowel sounds, Soft, No tenderness, No hepatosplenomegaly, No masses Extremities: No clubbing, No cyanosis, No edema, Normal pulses, Other (Focal L3-4 pain on palpation) Skin: No rashes, No breakdown, No significant lesion Labs LABS Laboratory Tests Test 11/18/19 10:55 11/18/19 16:35 11/18/19 20:47 11/19/19 07:23 Glucose (Fingerstick) 224 mg/dL (70-99) 205 mg/dL (70-99) 209 mg/dL (70-99) 161 mg/dL (70-99) Assessment and Plan Assessmemt and Plan Problems Medical Problems: (1) Altered mental status Status: Acute (2) Hyperglycemia Status: Acute (3) Urinary tract infection Status: Acute Comment Review of Relevant I have reviewed the following items jina (where applicable) has been applied. Labs Laboratory Tests Test 11/17/19 11:44 11/17/19 16:56 11/17/19 20:52 11/18/19 07:55 Glucose (Fingerstick) 209 mg/dL (70-99) 191 mg/dL (70-99) 225 mg/dL (70-99) 168 mg/dL (70-99) Test 11/18/19 10:55 11/18/19 16:35 11/18/19 20:47 11/19/19 07:23 Glucose (Fingerstick) 224 mg/dL (70-99) 205 mg/dL (70-99) 209 mg/dL (70-99) 161 mg/dL (70-99) Laboratory Tests Test 11/18/19 10:55 11/18/19 16:35 11/18/19 20:47 11/19/19 07:23 Glucose (Fingerstick) 224 mg/dL (70-99) 205 mg/dL (70-99) 209 mg/dL (70-99) 161 mg/dL (70-99) Microbiology 11/16/19 Urine Culture - Final, Complete 11/16/19 Urine Culture Result 1 (HARITHA) - Final, Complete Medications Current Medications Sodium Chloride 1,000 ml @ 1,000 mls/hr 1X ONCE IV Last administered on 11/16/19at 14:43; Start 11/16/19 at 14:15; Stop 11/16/19 at 15:14; Status DC Ceftriaxone Sodium (Rocephin) 1 gm 1X ONCE IVP Last administered on 11/16/19at 17:20; Start 11/16/19 at 16:30; Stop 11/16/19 at 16:31; Status DC Acetaminophen (Tylenol) 500 mg PRN Q6HRS PRN PO MILD PAIN 1-3 Last administered on 11/17/19at 15:02; Start 11/16/19 at 17:45 Docusate Sodium (Colace) 100 mg PRN DAILY PRN PO HARD STOOLS; Start 11/16/19 at 17:45 Acetaminophen/ Hydrocodone Bitart (Lortab 7.5/325) 1 tab PRN TID PRN PO MODERATE - SEVERE PAIN Last administered on 11/18/19at 21:01; Start 11/16/19 at 17:45 Nitroglycerin (Nitrostat) 0.4 mg PRN Q5MIN PRN SL CHEST PAIN; Start 11/16/19 at 17:45 Senna/Docusate Sodium (Senna Plus) 1 tab PRN DAILY PRN PO CONSTIPATION; Start 11/16/19 at 17:45 Carvedilol (Coreg) 12.5 mg BIDWMEALS PO Last administered on 11/19/19at 08:06; Start 11/16/19 at 18:00 Insulin Glargine (Lantus Syringe) 20 unit QHS SQ Last administered on 11/18/19at 21:03; Start 11/16/19 at 21:00 Levothyroxine Sodium (Synthroid) 200 mcg DAILY06 PO Last administered on 11/19/19at 05:36; Start 11/17/19 at 06:00 Ondansetron HCl (Zofran) 4 mg PRN Q8HRS PRN IV NAUSEA/VOMITING; Start 11/16/19 at 18:00; Stop 11/16/19 at 21:39; Status DC Morphine Sulfate (Morphine Sulfate) 2 mg PRN Q2HR PRN IV PAIN; Start 11/16/19 at 18:00; Stop 11/17/19 at 17:59; Status DC Acetaminophen (Tylenol) 650 mg PRN Q4HRS PRN PO FEVER; Start 11/16/19 at 18:00; Stop 11/17/19 at 17:07; Status DC Sodium Chloride 1,000 ml @ 125 mls/hr 1X ONCE IV Last administered on 11/16/19at 19:48; Start 11/16/19 at 18:00; Stop 11/17/19 at 01:59; Status DC Ondansetron HCl (Zofran) 4 mg PRN Q6HRS PRN IV NAUSEA/VOMITING; Start 11/16/19 at 21:45 Ceftriaxone Sodium (Rocephin) 1 gm Q24H IVP Last administered on 11/17/19at 08:55; Start 11/17/19 at 09:30; Stop 11/18/19 at 10:05; Status DC Magnesium Sulfate 100 ml @ 25 mls/hr 1X ONCE IV Last administered on 11/16/19at 22:06; Start 11/16/19 at 22:00; Stop 11/17/19 at 01:59; Status DC Enoxaparin Sodium (Lovenox 30mg Syringe) 30 mg Q24H SQ Last administered on 11/16/19at 22:06; Start 11/16/19 at 22:00; Stop 11/17/19 at 17:12; Status DC Insulin Human Lispro (HumaLOG) 0-7 UNITS TIDACHC SQ Last administered on 11/19/19at 08:15; Start 11/17/19 at 07:30 Dextrose (Dextrose 50%-Water Syringe) 12.5 gm PRN Q15MIN PRN IV SEE COMMENTS; Start 11/16/19 at 21:45 Dextrose (Iv Dextrose 5%) 250 ml PRN Q15MIN PRN IV SEE COMMENTS; Start 11/16/19 at 21:45 Valacyclovir HCl (Valtrex) 1,000 mg TID PO Last administered on 11/19/19at 08:07; Start 11/17/19 at 14:30 Ascorbic Acid (Vitamin C) 500 mg BID PO Last administered on 11/19/19 08:06; Start 11/17/19 at 21:00 Diclofenac Sodium (Voltaren) 1 loulou BID TP Last administered on 11/19/19at 08:08; Start 11/17/19 at 21:00 Enoxaparin Sodium (Lovenox 40mg Syringe) 40 mg Q12H SQ Last administered on 11/19/19at 08:07; Start 11/17/19 at 21:00 Lactobacillus Rhamnosus (Culturelle) 1 cap BID PO Last administered on 11/19/19at 08:06; Start 11/17/19 at 21:00 Cefdinir (Omnicef) 300 mg BID PO Last administered on 11/19/19at 08:06; Start 11/18/19 at 10:15 Cyanocobalamin (Vitamin B-12) 1,000 mcg 1X ONCE IM Last administered on 11/18/19at 12:20; Start 11/18/19 at 11:30; Stop 11/18/19 at 11:33; Status DC Cyanocobalamin (Vitamin B-12) 1,000 mcg DAILY PO Last administered on 11/19/19at 08:06; Start 11/19/19 at 09:00 Active Scripts Active Novolog Flexpen (Insulin Aspart) 100 Unit/1 Ml Insuln.pen 100 Unit SQ TID PRN PRN Reported Lantus Solostar (Insulin Glargine,Hum.rec.anlog) 100 Unit/1 Ml Insuln.pen 20 Unit SQ QHS Senokot-S Tablet (Sennosides/Docusate Sodium) 1 Each Tablet 1 Each PO PRN DAILY PRN Benadryl (Diphenhydramine Hcl) 25 Mg Capsule 25 Mg PO PRN QHS PRN Acetaminophen 500 Mg Tablet 500 Mg PO PRN Q6HRS PRN Spironolactone 25 Mg Tablet 25 Mg PO DAILY Colace (Docusate Sodium) 100 Mg Capsule 100 Mg PO PRN DAILY PRN Coreg (Carvedilol) 25 Mg Tablet 12.5 Mg PO BIDWMEALS Nitrostat (Nitroglycerin) 0.4 Mg Tab.subl 0.4 Mg SL PRN Q5MIN PRN Hydrocodone-Apap 7.5-325 (Hydrocodone Bit/Acetaminophen) 1 Tab Tablet 1 Tab PO PRN TID PRN Synthroid (Levothyroxine Sodium) 200 Mcg Tablet 200 Mcg PO DAILY Vitals/I & O Vital Sign - Last 24 Hours 12/28/19 12/28/19 12/28/19 12/28/19 11:00 15:00 16:48 19:00 Temp 97.9 98.0 99.2 97.9 98.0 99.2 Pulse 63 66 66 66 Resp 16 16 18 B/P (MAP) 129/57 (81) 128/59 (82) 128/59 158/69 (98) Pulse Ox 94 96 95 O2 Delivery Room Air Room Air Room Air 11/18/19 11/18/19 11/18/19 11/19/19 21:01 22:01 23:00 03:00 Temp 98.0 97.7 98.0 97.7 Pulse 61 61 Resp 17 14 18 18 B/P (MAP) 125/47 (73) 123/55 (77) Pulse Ox 95 95 94 94 O2 Delivery Room Air Room Air Room Air Room Air 11/19/19 11/19/19 07:00 08:06 Temp 97.7 97.7 Pulse 58 58 Resp 19 B/P (MAP) 154/58 (90) 154/58 Pulse Ox 95 O2 Delivery Room Air Intake and Output 11/18/19 11/18/19 11/19/19 15:00 23:00 07:00 Intake Total 180 ml 240 ml Balance 180 ml 240 ml HILDA HERNANDEZ MD Nov 19, 2019 09:08
[2019-11-19 11:00] VITALS: BP 147/48
[2019-11-19] MEDS ORDERED: FLUO20CA19 PO (14:01)
[2019-11-19] MEDS: FLUoxetine HCL 20 MG CAPSULE PO SCH (14:16)
[2019-11-19 15:00] VITALS: BP 149/54
[2019-11-19] MEDS: HYDROcodone/APAP 7.5/325MG 1 TAB TABLET PO PRN (17:05)
[2019-11-19 19:00] VITALS: BP 148/52
[2019-11-19] MEDS: LIDOCAINE (700MG/PATCH) PATCH. TD SCH (20:50)
[2019-11-19] MEDS: INSULIN GLARGINE SYRINGE. SQ SCH (20:56)
[2019-11-19 22:57] VITALS: BP 119/50
[2019-11-20 03:00] VITALS: BP 121/67
[2019-11-20] MEDS: HYDROcodone/APAP 7.5/325MG 1 TAB TABLET PO PRN ×2 (05:17→17:31)
[2019-11-20] MEDS: LEVOTHYROXINE 100 MCG TABLET PO SCH (05:17)
[2019-11-20 07:00] VITALS: BP 169/60
--- NOTE | 2019-11-20 08:25 | PDOC ---
PROGRESS NOTES Chief Complaint Chief Complaint A/P: Acute encephalopathy - likely 2/2 UTI vs hyponatremia UTI - will treat empirically with rocephin, f/u culture results Urinary incontinence - will have bladder training with OT Morbid obesity BMI 50 - counseled on weight loss Lower back pain - new onset, relatively, with her recent falls and confusion, will obtain lumbar X-ray to r/o acute pathology Bilateral knee pain left greater than right - improved after prior injections Diabetes type 2 uncontrolled - will place on basal bolus plus regimen in house Hypertension, controlled - cont meds Hyponatremia - will give IVF, this seems hypovolemic Hypomagnesemia - will replace, check in AM Hypothyroidism - TSH WNL, will cont 200mcg levothyroxine dosing Rash - on left arm, appears vesicular, slightly painful, with the distribution will treat as shingles FEN - ADA diet PPX - lovenox FULL CODE Dispo -inpatient likely 2 midnights History of Present Illness History of Present Illness Ms Kenney is a 74yo F w/ PMHx DM2, HLD, HTN, CAD s/p stenting who p/w 2 other family members due to confusion and hallucinations, mostly visual. The patient is aware of this and the confusion. She does note a few recent falls, though they were "soft". She c/o some dysuria as well as some mid lower back pain. She has previously been confused with UTIs per family. Labs significant for grossly abnormal UA, cultured and started on rocephin. She was also noted with Na of 128, glucose of 309, Mg 1.4, microcytic anemia, and underwent CXR and CT both of which were negative for acute pathology. EKG wa s NSR. 11/17: Overnight started feeling a bit better. This morning she lost IV access, now has a rash on her left hand and arm, vesicular, a bit painful. 11/18 Shingles feeling better. She just wishes to rest today. Still very weak. No CP or SOB 11/19: Left shoulder hurting, shingles better. No cough. She is tearful, thinks she needs her prozac. Still grieving over the loss of her in July and trying to evict her daughter in law. Feeling a bit better, still with left shoulder pain, bilateral knee pain. Urine with NGTD. Shingles rash improving. Still very weak. Much less confused. Plan: Treat shingles 1000mg TID valtrex Needs rehab on d/c SNF vs Acute rehab PMR for injections, previously had good outcomes with synvisc in bilateral knees Vitals Vitals Vital Signs Date Time Temp Pulse Resp B/P (MAP) Pulse Ox O2 Delivery O2 Flow Rate FiO2 11/20/19 06:14 17 93 Room Air 11/20/19 03:00 98.1 53 121/67 (85) 98.1 Physical Exam General: Alert, Cooperative, No acute distress, Other (Confused, oriented to person) Lungs: Clear Abdomen: Normal bowel sounds, Soft, No tenderness, No hepatosplenomegaly, No masses Extremities: No clubbing, No cyanosis, No edema, Normal pulses, Other (Focal L3-4 pain on palpation) Skin: No rashes, No breakdown, No significant lesion Labs LABS Laboratory Tests Test 11/19/19 11:25 11/19/19 16:52 11/19/19 20:42 11/20/19 07:32 Glucose (Fingerstick) 223 mg/dL (70-99) 182 mg/dL (70-99) 251 mg/dL (70-99) 167 mg/dL (70-99) Assessment and Plan Assessmemt and Plan Problems Medical Problems: (1) Altered mental status Status: Acute (2) Hyperglycemia Status: Acute (3) Urinary tract infection Status: Acute Comment Review of Relevant I have reviewed the following items jina (where applicable) has been applied. Labs Laboratory Tests Test 11/18/19 10:55 11/18/19 16:35 11/18/19 20:47 11/19/19 07:23 Glucose (Fingerstick) 224 mg/dL (70-99) 205 mg/dL (70-99) 209 mg/dL (70-99) 161 mg/dL (70-99) Test 11/19/19 11:25 11/19/19 16:52 11/19/19 20:42 11/20/19 07:32 Glucose (Fingerstick) 223 mg/dL (70-99) 182 mg/dL (70-99) 251 mg/dL (70-99) 167 mg/dL (70-99) Laboratory Tests Test 11/19/19 11:25 11/19/19 16:52 11/19/19 20:42 11/20/19 07:32 Glucose (Fingerstick) 223 mg/dL (70-99) 182 mg/dL (70-99) 251 mg/dL (70-99) 167 mg/dL (70-99) Microbiology 11/16/19 Urine Culture - Final, Complete 11/16/19 Urine Culture Result 1 (HARITHA) - Final, Complete Medications Current Medications Sodium Chloride 1,000 ml @ 1,000 mls/hr 1X ONCE IV Last administered on 11/16/19at 14:43; Start 11/16/19 at 14:15; Stop 11/16/19 at 15:14; Status DC Ceftriaxone Sodium (Rocephin) 1 gm 1X ONCE IVP Last administered on 11/16/19at 17:20; Start 11/16/19 at 16:30; Stop 11/16/19 at 16:31; Status DC Acetaminophen (Tylenol) 500 mg PRN Q6HRS PRN PO MILD PAIN 1-3 Last administered on 11/17/19at 15:02; Start 11/16/19 at 17:45 Docusate Sodium (Colace) 100 mg PRN DAILY PRN PO HARD STOOLS; Start 11/16/19 at 17:45 Acetaminophen/ Hydrocodone Bitart (Lortab 7.5/325) 1 tab PRN TID PRN PO MODERATE - SEVERE PAIN Last administered on 11/20/19at 05:17; Start 11/16/19 at 17:45 Nitroglycerin (Nitrostat) 0.4 mg PRN Q5MIN PRN SL CHEST PAIN; Start 11/16/19 at 17:45 Senna/Docusate Sodium (Senna Plus) 1 tab PRN DAILY PRN PO CONSTIPATION; Start 11/16/19 at 17:45 Carvedilol (Coreg) 12.5 mg BIDWMEALS PO Last administered on 11/19/19 17:01; Start 11/16/19 at 18:00 Insulin Glargine (Lantus Syringe) 20 unit QHS SQ Last administered on 11/19/19at 20:56; Start 11/16/19 at 21:00 Levothyroxine Sodium (Synthroid) 200 mcg DAILY06 PO Last administered on 11/20/19at 05:17; Start 11/17/19 at 06:00 Ondansetron HCl (Zofran) 4 mg PRN Q8HRS PRN IV NAUSEA/VOMITING; Start 11/16/19 at 18:00; Stop 11/16/19 at 21:39; Status DC Morphine Sulfate (Morphine Sulfate) 2 mg PRN Q2HR PRN IV PAIN; Start 11/16/19 at 18:00; Stop 11/17/19 at 17:59; Status DC Acetaminophen (Tylenol) 650 mg PRN Q4HRS PRN PO FEVER; Start 11/16/19 at 18:00; Stop 11/17/19 at 17:07; Status DC Sodium Chloride 1,000 ml @ 125 mls/hr 1X ONCE IV Last administered on 11/16/19at 19:48; Start 11/16/19 at 18:00; Stop 11/17/19 at 01:59; Status DC Ondansetron HCl (Zofran) 4 mg PRN Q6HRS PRN IV NAUSEA/VOMITING; Start 11/16/19 at 21:45 Ceftriaxone Sodium (Rocephin) 1 gm Q24H IVP Last administered on 11/17/19at 08:55; Start 11/17/19 at 09:30; Stop 11/18/19 at 10:05; Status DC Magnesium Sulfate 100 ml @ 25 mls/hr 1X ONCE IV Last administered on 11/16/19at 22:06; Start 11/16/19 at 22:00; Stop 11/17/19 at 01:59; Status DC Enoxaparin Sodium (Lovenox 30mg Syringe) 30 mg Q24H SQ Last administered on 11/16/19at 22:06; Start 11/16/19 at 22:00; Stop 11/17/19 at 17:12; Status DC Insulin Human Lispro (HumaLOG) 0-7 UNITS TIDACHC SQ Last administered on 11/19/19at 20:55; Start 11/17/19 at 07:30 Dextrose (Dextrose 50%-Water Syringe) 12.5 gm PRN Q15MIN PRN IV SEE COMMENTS; Start 11/16/19 at 21:45 Dextrose (Iv Dextrose 5%) 250 ml PRN Q15MIN PRN IV SEE COMMENTS; Start 11/16/19 at 21:45 Valacyclovir HCl (Valtrex) 1,000 mg TID PO Last administered on 11/19/19at 20:51; Start 11/17/19 at 14:30 Ascorbic Acid (Vitamin C) 500 mg BID PO Last administered on 11/19/19 20:51; Start 11/17/19 at 21:00 Diclofenac Sodium (Voltaren) 1 loulou BID TP Last administered on 11/19/19 20:55; Start 11/17/19 at 21:00 Enoxaparin Sodium (Lovenox 40mg Syringe) 40 mg Q12H SQ Last administered on 11/19/19 20:56; Start 11/17/19 at 21:00 Lactobacillus Rhamnosus (Culturelle) 1 cap BID PO Last administered on 11/19/19 20:51; Start 11/17/19 at 21:00 Cefdinir (Omnicef) 300 mg BID PO Last administered on 11/19/19 20:51; Start 11/18/19 at 10:15 Cyanocobalamin (Vitamin B-12) 1,000 mcg 1X ONCE IM Last administered on 11/18/19 12:20; Start 11/18/19 at 11:30; Stop 11/18/19 at 11:33; Status DC Cyanocobalamin (Vitamin B-12) 1,000 mcg DAILY PO Last administered on 11/19/19 08:06; Start 11/19/19 at 09:00 Fluoxetine HCl (PROzac) 20 mg DAILY PO Last administered on 11/19/19at 14:16; Start 11/19/19 at 14:15 Lidocaine (Lidoderm) 1 patch HS TD Last administered on 11/19/19at 20:50; Start 11/19/19 at 21:00 Miscellaneous (Lidoderm Patch Removal) 1 ea DAILY ; Start 11/20/19 at 09:00 Active Scripts Active Novolog Flexpen (Insulin Aspart) 100 Unit/1 Ml Insuln.pen 100 Unit SQ TID PRN PRN Reported Fluoxetine Hcl 20 Mg Capsule 20 Mg PO DAILY 90 Days Lantus Solostar (Insulin Glargine,Hum.rec.anlog) 100 Unit/1 Ml Insuln.pen 20 Unit SQ QHS Senokot-S Tablet (Sennosides/Docusate Sodium) 1 Each Tablet 1 Each PO PRN DAILY PRN Benadryl (Diphenhydramine Hcl) 25 Mg Capsule 25 Mg PO PRN QHS PRN Acetaminophen 500 Mg Tablet 500 Mg PO PRN Q6HRS PRN Spironolactone 25 Mg Tablet 25 Mg PO DAILY Colace (Docusate Sodium) 100 Mg Capsule 100 Mg PO PRN DAILY PRN Coreg (Carvedilol) 25 Mg Tablet 12.5 Mg PO BIDWMEALS Nitrostat (Nitroglycerin) 0.4 Mg Tab.subl 0.4 Mg SL PRN Q5MIN PRN Hydrocodone-Apap 7.5-325 (Hydrocodone Bit/Acetaminophen) 1 Tab Tablet 1 Tab PO PRN TID PRN Synthroid (Levothyroxine Sodium) 200 Mcg Tablet 200 Mcg PO DAILY Vitals/I & O Vital Sign - Last 24 Hours 11/19/19 11/19/19 11/19/19 11/19/19 11:00 15:00 17:01 17:05 Temp 97.7 97.8 97.7 97.8 Pulse 60 60 60 Resp 19 B/P (MAP) 147/48 (81) 149/54 (85) 149/54 Pulse Ox 96 95 O2 Delivery Room Air Room Air Room Air 11/19/19 11/19/19 11/19/19 11/20/19 18:39 19:00 22:57 03:00 Temp 98.4 98.3 98.1 98.4 98.3 98.1 Pulse 65 65 53 Resp 18 18 18 B/P (MAP) 148/52 (84) 119/50 (73) 121/67 (85) Pulse Ox 93 93 93 O2 Delivery Room Air Room Air Room Air Room Air 11/20/19 11/20/19 05:17 06:14 Resp 15 17 Pulse Ox 93 93 O2 Delivery Room Air Room Air Intake and Output 11/19/19 11/19/19 11/20/19 15:00 23:00 07:00 Intake Total 600 ml 300 ml 200 ml Balance 600 ml 300 ml 200 ml HILDA HERNANDEZ MD Nov 20, 2019 08:25
--- NOTE | 2019-11-20 08:47 | PDOC ---
PROGRESS NOTES Subjective Subjective She admits continued low back and knee joint stiffness and pain and wouldlike to have them injected before discharge. Objective Objective Vital Signs Date Time Temp Pulse Resp B/P (MAP) Pulse Ox O2 Delivery O2 Flow Rate FiO2 11/20/19 06:14 17 93 Room Air 11/20/19 03:00 98.1 53 121/67 (85) 98.1 Intake and Output 11/20/19 07:00 Intake Total 1100 ml Balance 1100 ml Intake Oral 1100 ml # Voids 3 Physical Exam Physical Exam She is alert,supine in bed and she got up with physical therapy. She continues with tenderness to palpation over sacroiliac joints,trochanteric bursa and medial knee joint line. Assessment Assessment Problems Medical Problems: (1) Altered mental status Status: Acute (2) Hyperglycemia Status: Acute (3) Urinary tract infection Status: Acute Plan Plan of Care To consider injecting her low back and knees when her infection is under control. Comment Review of Relevant I have reviewed the following items jina (where applicable) has been applied. Labs Laboratory Tests Test 11/18/19 10:55 11/18/19 16:35 11/18/19 20:47 11/19/19 07:23 Glucose (Fingerstick) 224 mg/dL (70-99) 205 mg/dL (70-99) 209 mg/dL (70-99) 161 mg/dL (70-99) Test 11/19/19 11:25 11/19/19 16:52 11/19/19 20:42 11/20/19 07:32 Glucose (Fingerstick) 223 mg/dL (70-99) 182 mg/dL (70-99) 251 mg/dL (70-99) 167 mg/dL (70-99) Laboratory Tests Test 11/19/19 11:25 11/19/19 16:52 11/19/19 20:42 11/20/19 07:32 Glucose (Fingerstick) 223 mg/dL (70-99) 182 mg/dL (70-99) 251 mg/dL (70-99) 167 mg/dL (70-99) Microbiology 11/16/19 Urine Culture - Final, Complete 11/16/19 Urine Culture Result 1 (HARITHA) - Final, Complete Medications Current Medications Sodium Chloride 1,000 ml @ 1,000 mls/hr 1X ONCE IV Last administered on 11/16/19at 14:43; Start 11/16/19 at 14:15; Stop 11/16/19 at 15:14; Status DC Ceftriaxone Sodium (Rocephin) 1 gm 1X ONCE IVP Last administered on 11/16/19at 17:20; Start 11/16/19 at 16:30; Stop 11/16/19 at 16:31; Status DC Acetaminophen (Tylenol) 500 mg PRN Q6HRS PRN PO MILD PAIN 1-3 Last administered on 11/17/19at 15:02; Start 11/16/19 at 17:45 Docusate Sodium (Colace) 100 mg PRN DAILY PRN PO HARD STOOLS; Start 11/16/19 at 17:45 Acetaminophen/ Hydrocodone Bitart (Lortab 7.5/325) 1 tab PRN TID PRN PO MODERATE - SEVERE PAIN Last administered on 11/20/19at 05:17; Start 11/16/19 at 17:45 Nitroglycerin (Nitrostat) 0.4 mg PRN Q5MIN PRN SL CHEST PAIN; Start 11/16/19 at 17:45 Senna/Docusate Sodium (Senna Plus) 1 tab PRN DAILY PRN PO CONSTIPATION; Start 11/16/19 at 17:45 Carvedilol (Coreg) 12.5 mg BIDWMEALS PO Last administered on 11/19/19at 17:01; Start 11/16/19 at 18:00 Insulin Glargine (Lantus Syringe) 20 unit QHS SQ Last administered on 11/19/19at 20:56; Start 11/16/19 at 21:00 Levothyroxine Sodium (Synthroid) 200 mcg DAILY06 PO Last administered on 11/20/19at 05:17; Start 11/17/19 at 06:00 Ondansetron HCl (Zofran) 4 mg PRN Q8HRS PRN IV NAUSEA/VOMITING; Start 11/16/19 at 18:00; Stop 11/16/19 at 21:39; Status DC Morphine Sulfate (Morphine Sulfate) 2 mg PRN Q2HR PRN IV PAIN; Start 11/16/19 at 18:00; Stop 11/17/19 at 17:59; Status DC Acetaminophen (Tylenol) 650 mg PRN Q4HRS PRN PO FEVER; Start 11/16/19 at 18:00; Stop 11/17/19 at 17:07; Status DC Sodium Chloride 1,000 ml @ 125 mls/hr 1X ONCE IV Last administered on 11/16/19at 19:48; Start 11/16/19 at 18:00; Stop 11/17/19 at 01:59; Status DC Ondansetron HCl (Zofran) 4 mg PRN Q6HRS PRN IV NAUSEA/VOMITING; Start 11/16/19 at 21:45 Ceftriaxone Sodium (Rocephin) 1 gm Q24H IVP Last administered on 11/17/19at 08:55; Start 11/17/19 at 09:30; Stop 11/18/19 at 10:05; Status DC Magnesium Sulfate 100 ml @ 25 mls/hr 1X ONCE IV Last administered on 11/16/19at 22:06; Start 11/16/19 at 22:00; Stop 11/17/19 at 01:59; Status DC Enoxaparin Sodium (Lovenox 30mg Syringe) 30 mg Q24H SQ Last administered on 11/16/19at 22:06; Start 11/16/19 at 22:00; Stop 11/17/19 at 17:12; Status DC Insulin Human Lispro (HumaLOG) 0-7 UNITS TIDACHC SQ Last administered on 11/19/19at 20:55; Start 11/17/19 at 07:30 Dextrose (Dextrose 50%-Water Syringe) 12.5 gm PRN Q15MIN PRN IV SEE COMMENTS; Start 11/16/19 at 21:45 Dextrose (Iv Dextrose 5%) 250 ml PRN Q15MIN PRN IV SEE COMMENTS; Start 11/16/19 at 21:45 Valacyclovir HCl (Valtrex) 1,000 mg TID PO Last administered on 11/19/19at 20:51; Start 11/17/19 at 14:30 Ascorbic Acid (Vitamin C) 500 mg BID PO Last administered on 11/19/19 20:51; Start 11/17/19 at 21:00 Diclofenac Sodium (Voltaren) 1 loulou BID TP Last administered on 11/19/19at 20:55; Start 11/17/19 at 21:00 Enoxaparin Sodium (Lovenox 40mg Syringe) 40 mg Q12H SQ Last administered on 11/19/19 20:56; Start 11/17/19 at 21:00 Lactobacillus Rhamnosus (Culturelle) 1 cap BID PO Last administered on 11/19/19 20:51; Start 11/17/19 at 21:00 Cefdinir (Omnicef) 300 mg BID PO Last administered on 11/19/19 20:51; Start 11/18/19 at 10:15 Cyanocobalamin (Vitamin B-12) 1,000 mcg 1X ONCE IM Last administered on 11/18/19 12:20; Start 11/18/19 at 11:30; Stop 11/18/19 at 11:33; Status DC Cyanocobalamin (Vitamin B-12) 1,000 mcg DAILY PO Last administered on 11/19/19 08:06; Start 11/19/19 at 09:00 Fluoxetine HCl (PROzac) 20 mg DAILY PO Last administered on 11/19/19 14:16; Start 11/19/19 at 14:15 Lidocaine (Lidoderm) 1 patch HS TD Last administered on 11/19/19 20:50; Start 11/19/19 at 21:00 Miscellaneous (Lidoderm Patch Removal) 1 ea DAILY MC ; Start 11/20/19 at 09:00 Active Scripts Active Novolog Flexpen (Insulin Aspart) 100 Unit/1 Ml Insuln.pen 100 Unit SQ TID PRN PRN Reported Fluoxetine Hcl 20 Mg Capsule 20 Mg PO DAILY 90 Days Lantus Solostar (Insulin Glargine,Hum.rec.anlog) 100 Unit/1 Ml Insuln.pen 20 Unit SQ QHS Senokot-S Tablet (Sennosides/Docusate Sodium) 1 Each Tablet 1 Each PO PRN DAILY PRN Benadryl (Diphenhydramine Hcl) 25 Mg Capsule 25 Mg PO PRN QHS PRN Acetaminophen 500 Mg Tablet 500 Mg PO PRN Q6HRS PRN Spironolactone 25 Mg Tablet 25 Mg PO DAILY Colace (Docusate Sodium) 100 Mg Capsule 100 Mg PO PRN DAILY PRN Coreg (Carvedilol) 25 Mg Tablet 12.5 Mg PO BIDWMEALS Nitrostat (Nitroglycerin) 0.4 Mg Tab.subl 0.4 Mg SL PRN Q5MIN PRN Hydrocodone-Apap 7.5-325 (Hydrocodone Bit/Acetaminophen) 1 Tab Tablet 1 Tab PO PRN TID PRN Synthroid (Levothyroxine Sodium) 200 Mcg Tablet 200 Mcg PO DAILY Vitals/I & O Vital Sign - Last 24 Hours 11/19/19 11/19/19 11/19/19 11/19/19 11:00 15:00 17:01 17:05 Temp 97.7 97.8 97.7 97.8 Pulse 60 60 60 Resp 19 B/P (MAP) 147/48 (81) 149/54 (85) 149/54 Pulse Ox 96 95 O2 Delivery Room Air Room Air Room Air 11/19/19 11/19/19 11/19/19 11/20/19 18:39 19:00 22:57 03:00 Temp 98.4 98.3 98.1 98.4 98.3 98.1 Pulse 65 65 53 Resp 18 18 18 B/P (MAP) 148/52 (84) 119/50 (73) 121/67 (85) Pulse Ox 93 93 93 O2 Delivery Room Air Room Air Room Air Room Air 11/20/19 11/20/19 05:17 06:14 Resp 15 17 Pulse Ox 93 93 O2 Delivery Room Air Room Air Intake and Output 11/19/19 11/19/19 11/20/19 15:00 23:00 07:00 Intake Total 600 ml 300 ml 200 ml Balance 600 ml 300 ml 200 ml PAWAN FLETCHER MD Nov 20, 2019 08:47
[2019-11-20] MEDS: CARVEDILOL 12.5 MG TABLET. PO SCH ×2 (08:57→17:31)
[2019-11-20] MEDS: CYANOCOBALAMIN (VITAMIN B-12) 1,000 MCG TABLET. PO SCH (08:57)
[2019-11-20] MEDS: LACTOBACILLUS RHAMNOSUS GG 1 CAPSULE. PO SCH ×2 (08:57→23:51)
[2019-11-20] MEDS: ASCORBIC ACID 500 MG TABLET PO SCH ×2 (08:57→23:51)
[2019-11-20] MEDS: valACYclovir 500 MG TABLET. PO SCH ×3 (08:57→23:52)
[2019-11-20] MEDS: CEFDINIR 300 MG CAPSULE PO SCH ×2 (08:57→23:51)
[2019-11-20] MEDS: ENOXAPARIN 40 MG/0.4 ML SYRINGE. SQ SCH ×2 (08:58→23:52)
[2019-11-20] MEDS: DICLOFENAC SODIUM 1% TOPICAL GEL 100GM TUBE. TP SCH ×2 (08:58→23:58)
[2019-11-20] MEDS: PATCH REMOVAL. MC SCH (09:00)
[2019-11-20] MEDS: INSULIN LISPRO 300 UNITS/3 ML VIAL. SQ SCH ×4 (09:10→23:55)
[2019-11-20 11:00] VITALS: BP 174/103
[2019-11-20] MEDS: FLUoxetine HCL 20 MG CAPSULE PO SCH (11:24)
[2019-11-20 15:00] VITALS: BP 119/65
[2019-11-20] MEDS ORDERED: ONDANSETRON ODT 4 MG TAB.RAPDIS. PO PRN (18:30)
[2019-11-20 19:00] VITALS: BP 157/54
[2019-11-20 23:00] VITALS: BP 174/70
[2019-11-20] MEDS: INSULIN GLARGINE SYRINGE. SQ SCH (23:54)
[2019-11-20] MEDS: LIDOCAINE (700MG/PATCH) PATCH. TD SCH (23:58)
[2019-11-21 03:00] VITALS: BP 145/64
[2019-11-21] MEDS: HYDROcodone/APAP 7.5/325MG 1 TAB TABLET PO PRN ×3 (03:46→20:05)
[2019-11-21] MEDS: LEVOTHYROXINE 100 MCG TABLET PO SCH (05:53)
[2019-11-21 07:00] VITALS: BP 159/53
[2019-11-21] MEDS: SENNOSIDES/DOCUSATE 8.6/50MG TABLET. PO PRN (08:13)
[2019-11-21] MEDS: CEFDINIR 300 MG CAPSULE PO SCH ×2 (08:13→20:05)
[2019-11-21] MEDS: CYANOCOBALAMIN (VITAMIN B-12) 1,000 MCG TABLET. PO SCH (08:13)
[2019-11-21] MEDS: DICLOFENAC SODIUM 1% TOPICAL GEL 100GM TUBE. TP SCH ×2 (08:13→20:04)
[2019-11-21] MEDS: valACYclovir 500 MG TABLET. PO SCH ×3 (08:14→20:04)
[2019-11-21] MEDS: CARVEDILOL 12.5 MG TABLET. PO SCH ×2 (08:14→16:55)
[2019-11-21] MEDS: ASCORBIC ACID 500 MG TABLET PO SCH ×2 (08:14→20:05)
[2019-11-21] MEDS: FLUoxetine HCL 20 MG CAPSULE PO SCH (08:14)
[2019-11-21] MEDS: LACTOBACILLUS RHAMNOSUS GG 1 CAPSULE. PO SCH ×2 (08:14→20:05)
[2019-11-21] MEDS: PATCH REMOVAL. MC SCH (08:15)
[2019-11-21] MEDS: ENOXAPARIN 40 MG/0.4 ML SYRINGE. SQ SCH ×2 (08:15→20:10)
[2019-11-21] MEDS: INSULIN LISPRO 300 UNITS/3 ML VIAL. SQ SCH ×4 (08:23→21:00)
--- NOTE | 2019-11-21 08:59 | PDOC ---
PROGRESS NOTES Subjective Subjective She c/o pain in her shoulders,right >left since this hospitalization and continued low back and knee joint pain and stiffness and pain in her abdomen last night. Objective Objective Vital Signs Date Time Temp Pulse Resp B/P (MAP) Pulse Ox O2 Delivery O2 Flow Rate FiO2 11/21/19 08:14 70 145/64 11/21/19 08:00 Room Air 11/21/19 07:00 97.8 14 95 97.8 Intake and Output 11/21/19 07:00 Intake Total 660 ml Balance 660 ml Intake Oral 660 ml # Voids 3 Physical Exam Physical Exam She is alert,sitting in bed and she had tenderness to palpation at both shoulders and left posterior shoulder girdle muscles and sacroiliac joints,trochanteric bursa and knee joint line with painful ROM of left shoulder and lumbar spine.She is getting up with physical therapy. Assessment Assessment Problems Medical Problems: (1) Altered mental status Status: Acute (2) Hyperglycemia Status: Acute (3) Urinary tract infection Status: Acute Chronic low back pain from DDD and DJD of lumbar vertebrae. DJD of both knee joints. Tendinitis of both shoulders with left posterior shoulder girdle muscle strain. Obesity. Plan Plan of Care To continue present physical and occupational therapy follow up and to proceed with injecting her right sacroiliac joint and left knee joint before her transfer to SNF. Comment Review of Relevant I have reviewed the following items jina (where applicable) has been applied. Labs Laboratory Tests Test 11/19/19 11:25 11/19/19 16:52 11/19/19 20:42 11/20/19 07:32 Glucose (Fingerstick) 223 mg/dL (70-99) 182 mg/dL (70-99) 251 mg/dL (70-99) 167 mg/dL (70-99) Test 11/20/19 11:29 11/20/19 16:53 11/20/19 20:25 11/21/19 07:21 Glucose (Fingerstick) 224 mg/dL (70-99) 251 mg/dL (70-99) 231 mg/dL (70-99) 158 mg/dL (70-99) Laboratory Tests Test 11/20/19 11:29 11/20/19 16:53 11/20/19 20:25 11/21/19 07:21 Glucose (Fingerstick) 224 mg/dL (70-99) 251 mg/dL (70-99) 231 mg/dL (70-99) 158 mg/dL (70-99) Microbiology 11/16/19 Urine Culture - Final, Complete 11/16/19 Urine Culture Result 1 (HARITHA) - Final, Complete Medications Current Medications Sodium Chloride 1,000 ml @ 1,000 mls/hr 1X ONCE IV Last administered on 11/16/19at 14:43; Start 11/16/19 at 14:15; Stop 11/16/19 at 15:14; Status DC Ceftriaxone Sodium (Rocephin) 1 gm 1X ONCE IVP Last administered on 11/16/19at 17:20; Start 11/16/19 at 16:30; Stop 11/16/19 at 16:31; Status DC Acetaminophen (Tylenol) 500 mg PRN Q6HRS PRN PO MILD PAIN 1-3 Last administered on 11/17/19at 15:02; Start 11/16/19 at 17:45 Docusate Sodium (Colace) 100 mg PRN DAILY PRN PO HARD STOOLS; Start 11/16/19 at 17:45 Acetaminophen/ Hydrocodone Bitart (Lortab 7.5/325) 1 tab PRN TID PRN PO MODERATE - SEVERE PAIN Last administered on 11/21/19at 03:46; Start 11/16/19 at 17:45 Nitroglycerin (Nitrostat) 0.4 mg PRN Q5MIN PRN SL CHEST PAIN; Start 11/16/19 at 17:45 Senna/Docusate Sodium (Senna Plus) 1 tab PRN DAILY PRN PO CONSTIPATION Last administered on 11/21/19at 08:13; Start 11/16/19 at 17:45 Carvedilol (Coreg) 12.5 mg BIDWMEALS PO Last administered on 11/21/19 08:14; Start 11/16/19 at 18:00 Insulin Glargine (Lantus Syringe) 20 unit QHS SQ Last administered on 11/20/19at 23:54; Start 11/16/19 at 21:00 Levothyroxine Sodium (Synthroid) 200 mcg DAILY06 PO Last administered on at 05:53; Start 11/17/19 at 06:00 Ondansetron HCl (Zofran) 4 mg PRN Q8HRS PRN IV NAUSEA/VOMITING; Start 11/16/19 at 18:00; Stop 11/16/19 at 21:39; Status DC Morphine Sulfate (Morphine Sulfate) 2 mg PRN Q2HR PRN IV PAIN; Start 11/16/19 at 18:00; Stop 11/17/19 at 17:59; Status DC Acetaminophen (Tylenol) 650 mg PRN Q4HRS PRN PO FEVER; Start 11/16/19 at 18:00; Stop 11/17/19 at 17:07; Status DC Sodium Chloride 1,000 ml @ 125 mls/hr 1X ONCE IV Last administered on 11/16/19at 19:48; Start 11/16/19 at 18:00; Stop 11/17/19 at 01:59; Status DC Ondansetron HCl (Zofran) 4 mg PRN Q6HRS PRN IV NAUSEA/VOMITING; Start 11/16/19 at 21:45 Ceftriaxone Sodium (Rocephin) 1 gm Q24H IVP Last administered on 11/17/19at 08:55; Start 11/17/19 at 09:30; Stop 11/18/19 at 10:05; Status DC Magnesium Sulfate 100 ml @ 25 mls/hr 1X ONCE IV Last administered on 11/16/19at 22:06; Start 11/16/19 at 22:00; Stop 11/17/19 at 01:59; Status DC Enoxaparin Sodium (Lovenox 30mg Syringe) 30 mg Q24H SQ Last administered on 11/16/19at 22:06; Start 11/16/19 at 22:00; Stop 11/17/19 at 17:12; Status DC Insulin Human Lispro (HumaLOG) 0-7 UNITS TIDACHC SQ Last administered on 11/21/19at 08:23; Start 11/17/19 at 07:30 Dextrose (Dextrose 50%-Water Syringe) 12.5 gm PRN Q15MIN PRN IV SEE COMMENTS; Start 11/16/19 at 21:45 Dextrose (Iv Dextrose 5%) 250 ml PRN Q15MIN PRN IV SEE COMMENTS; Start 10/23 05/10 at 21:45 Valacyclovir HCl (Valtrex) 1,000 mg TID PO Last administered on 11/21/19at 08:14; Start 11/17/19 at 14:30 Ascorbic Acid (Vitamin C) 500 mg BID PO Last administered on 11/21/19 08:14; Start 11/17/19 at 21:00 Diclofenac Sodium (Voltaren) 1 loulou BID TP Last administered on 11/21/19 08:13; Start 11/17/19 at 21:00 Enoxaparin Sodium (Lovenox 40mg Syringe) 40 mg Q12H SQ Last administered on 11/21/19 08:15; Start 11/17/19 at 21:00 Lactobacillus Rhamnosus (Culturelle) 1 cap BID PO Last administered on 11/21/19 08:14; Start 11/17/19 at 21:00 Cefdinir (Omnicef) 300 mg BID PO Last administered on 11/21/19 08:13; Start 11/18/19 at 10:15 Cyanocobalamin (Vitamin B-12) 1,000 mcg 1X ONCE IM Last administered on 11/18/19 12:20; Start 11/18/19 at 11:30; Stop 11/18/19 at 11:33; Status DC Cyanocobalamin (Vitamin B-12) 1,000 mcg DAILY PO Last administered on 10/24 08:13; Start 11/19/19 at 09:00 Fluoxetine HCl (PROzac) 20 mg DAILY PO Last administered on 11/21/19 08:14; Start 11/19/19 at 14:15 Lidocaine (Lidoderm) 1 patch HS TD Last administered on 11/20/19 23:58; Start 11/19/19 at 21:00 Miscellaneous (Lidoderm Patch Removal) 1 ea DAILY MC Last administered on 11/21/19 08:15; Start 11/20/19 at 09:00 Ondansetron HCl (Zofran Odt) 4 mg PRN Q6HRS PRN PO NAUSEA/VOMITING Last administered on 11/20/19 18:45; Start 11/20/19 at 18:30 Active Scripts Active Novolog Flexpen (Insulin Aspart) 100 Unit/1 Ml Insuln.pen 100 Unit SQ TID PRN PRN Reported Fluoxetine Hcl 20 Mg Capsule 20 Mg PO DAILY 90 Days Lantus Solostar (Insulin Glargine,Hum.rec.anlog) 100 Unit/1 Ml Insuln.pen 20 Unit SQ QHS Senokot-S Tablet (Sennosides/Docusate Sodium) 1 Each Tablet 1 Each PO PRN DAILY PRN Benadryl (Diphenhydramine Hcl) 25 Mg Capsule 25 Mg PO PRN QHS PRN Acetaminophen 500 Mg Tablet 500 Mg PO PRN Q6HRS PRN Spironolactone 25 Mg Tablet 25 Mg PO DAILY Colace (Docusate Sodium) 100 Mg Capsule 100 Mg PO PRN DAILY PRN Coreg (Carvedilol) 25 Mg Tablet 12.5 Mg PO BIDWMEALS Nitrostat (Nitroglycerin) 0.4 Mg Tab.subl 0.4 Mg SL PRN Q5MIN PRN Hydrocodone-Apap 7.5-325 (Hydrocodone Bit/Acetaminophen) 1 Tab Tablet 1 Tab PO PRN TID PRN Synthroid (Levothyroxine Sodium) 200 Mcg Tablet 200 Mcg PO DAILY Vitals/I & O Vital Sign - Last 24 Hours 11/20/19 11/20/19 11/20/19 11/20/19 08:57 11:00 15:00 17:31 Temp 97.8 98.1 97.8 98.1 Pulse 53 61 62 Resp 18 18 B/P (MAP) 121/67 174/103 (126) 119/65 (83) Pulse Ox 94 93 O2 Delivery Room Air Room Air Room Air 11/20/19 11/20/19 11/20/19 11/20/19 17:31 18:31 19:00 20:00 Temp 98.2 98.2 Pulse 62 61 Resp 18 B/P (MAP) 119/65 157/54 (88) Pulse Ox 95 O2 Delivery Room Air Room Air Room Air 11/20/19 11/21/19 11/21/19 11/21/19 23:00 03:00 03:46 05:11 Temp 98.1 98.0 98.1 98.0 Pulse 61 70 Resp 18 18 18 16 B/P (MAP) 174/70 (104) 145/64 (91) Pulse Ox 94 95 94 94 O2 Delivery Room Air Room Air Room Air Room Air 11/21/19 11/21/19 11/21/19 07:00 08:00 08:14 Temp 97.8 97.8 Pulse 57 70 Resp 14 B/P (MAP) 159/53 (88) 145/64 Pulse Ox 95 O2 Delivery Room Air Room Air Intake and Output 0 11/20/19 11/20/19 11/21/19 15:00 23:00 07:00 Intake Total 120 ml 300 ml 240 ml Balance 120 ml 300 ml 240 ml PAWAN FLETCHER MD Nov 21, 2019 08:59
[2019-11-21] MEDS ORDERED: methylPREDNISolone ACETATE 40 MG/ML VIAL. IM ONE ×2 (09:00)
[2019-11-21] MEDS ORDERED: BUPIVACAINE MPF 0.25% 10 ML VIAL. IJ ONE (09:00)
--- NOTE | 2019-11-21 10:15 | RAD ---
Examination: SHOULDER BILAT 2+V History: Bilateral shoulder pain Comparison/Correlation: Left shoulder x-ray exam 05/28/2019 Findings: 3 views of the right shoulder and 3 views of the left shoulder were obtained. Screws identified involving the right humeral head. Deformity of the right femoral neck is evident. Bilateral acromioclavicular joint degenerative narrowing is present. Bony fragment along the inferior margin of the left bony glenoid is evident. Impression: Displaced Bankart fracture involving the left glenoid is evident and new since the previous left shoulder x-ray exam of 05/28/2019. Old right proximal humeral fracture and postoperative change. No acute process. Electronically signed by: Ernesto Harris MD (11/21/2019 10:12 AM) [facility]
[2019-11-21 11:00] VITALS: BP 152/60
--- NOTE | 2019-11-21 13:41 | PDOC ---
[employer] PROGRESS NOTE Chief Complaint Chief Complaint Acute encephalopathy UTI Urinary incontinence Morbid obesity BMI 50 - Lower back pain Bilateral knee pain Diabetes type 2 Hypertension Hyponatremia Hypomagnesemia Hypothyroid Rash History of Present Illness History of Present Illness Ms Kenney is a 74yo F w/ PMHx DM2, HLD, HTN, CAD s/p stenting who p/w 2 other family members due to confusion and hallucinations, mostly visual. The patient is aware of this and the confusion. She does note a few recent falls, though they were "soft". She c/o some dysuria as well as some mid lower back pain. She has previously been confused with UTIs per family. Labs significant for grossly abnormal UA, cultured and started on rocephin. She was also noted with Na of 128, glucose of 309, Mg 1.4, microcytic anemia, and underwent CXR and CT both of which were negative for acute pathology. EKG was NSR. 11/17: Overnight started feeling a bit better. This morning she lost IV access, now has a rash on her left hand and arm, vesicular, a bit painful. 11/18 Shingles feeling better. She just wishes to rest today. Still very weak. No CP or SOB 11/19: Left shoulder hurting, shingles better. No cough. She is tearful, thinks she needs her prozac. Still grieving over the loss of her in July and trying to evict her daughter in law. Feeling a bit better, still with left shoulder pain, bilateral knee pain. Urine with NGTD. Shingles rash improving. Still very weak. Much less confused. Plan: Treat shingles 1000mg TID valtrex Needs rehab on d/c SNF vs Acute rehab PMR for injections, previously had good outcomes with synvisc in bilateral knees 11/21/19 Patient seen and examined Chart reviewed Discussed with RN Vitals/I&O Vitals/I&O: Vital Signs Date Time Temp Pulse Resp B/P (MAP) Pulse Ox O2 Delivery O2 Flow Rate FiO2 11/21/19 11:50 20 95 Room Air 11/21/19 11:00 98.0 60 152/60 (90) 98.0 I & O 11/20/19 11/20/19 11/21/19 15:00 23:00 07:00 Intake Total 120 ml 300 ml 240 ml Balance 120 ml 300 ml 240 ml Physical Exam General: Alert, Cooperative, No acute distress, Other (Confused, oriented to person) Heart: Regular rate Lungs: Clear Abdomen: Normal bowel sounds, Soft, No tenderness, No hepatosplenomegaly, No masses Extremities: No clubbing, No cyanosis, No edema, Normal pulses, Other (Focal L3-4 pain on palpation) Skin: No rashes, No breakdown, No significant lesion Labs Labs: Laboratory Tests Test 11/20/19 16:53 11/20/19 20:25 11/21/19 07:21 11/21/19 11:13 Glucose (Fingerstick) 251 mg/dL (70-99) 231 mg/dL (70-99) 158 mg/dL (70-99) 244 mg/dL (70-99) Assessment and Plan Assessmemt and Plan Problems Medical Problems: (1) Altered mental status Status: Acute (2) Hyperglycemia Status: Acute (3) Urinary tract infection Status: Acute Acute encephalopathy - likely 2/2 UTI vs hyponatremia UTI - will treat empirically with rocephin, f/u culture results Urinary incontinence - will have bladder training with OT Morbid obesity BMI 50 - counseled on weight loss Lower back pain - new onset, relatively, with her recent falls and confusion, will obtain lumbar X-ray to r/o acute pathology Bilateral knee pain left greater than right - improved after prior injections Diabetes type 2 uncontrolled - will place on basal bolus plus regimen in house Hypertension, controlled - cont meds Hyponatremia - will give IVF, this seems hypovolemic Hypomagnesemia - will replace, check in AM Hypothyroidism - TSH WNL, will cont 200mcg levothyroxine dosing Rash - on left arm, appears vesicular, slightly painful, with the distribution will treat as shingles Comment Review of Relevant I have reviewed the following items jina (where applicable) has been applied. Medications: Current Medications Medications (Trade) Dose Ordered Sig/Natasha Route PRN Reason Start Time Stop Time Status Last Admin Dose Admin Ondansetron HCl (Zofran Odt) 4 mg PRN Q6HRS PRN PO NAUSEA/VOMITING 11/20/19 18:30 11/20/19 18:45 CHANDLER BLAKELY III DO Nov 21, 2019 13:40
[2019-11-21 15:00] VITALS: BP 144/57
[2019-11-21 19:00] VITALS: BP 147/51
[2019-11-21] MEDS: LIDOCAINE (700MG/PATCH) PATCH. TD SCH (20:04)
[2019-11-21] MEDS: INSULIN GLARGINE SYRINGE. SQ SCH (21:00)
[2019-11-21 23:00] VITALS: BP 138/68
[2019-11-22] MEDS: HYDROcodone/APAP 7.5/325MG 1 TAB TABLET PO PRN ×3 (01:39→21:07)
[2019-11-22 03:00] VITALS: BP 136/66
[2019-11-22] MEDS: LEVOTHYROXINE 100 MCG TABLET PO SCH (06:16)
[2019-11-22 07:00] VITALS: BP 182/62
[2019-11-22] MEDS: INSULIN LISPRO 300 UNITS/3 ML VIAL. SQ SCH ×5 (07:30→21:04)
[2019-11-22] MEDS: CARVEDILOL 12.5 MG TABLET. PO SCH ×2 (08:05→16:56)
--- NOTE | 2019-11-22 08:15 | NUR ---
Patient verb. understanding NPO for possible procedure. Holding insulin per protocol for blood sugar 164. Holding lovenox for possible procedure. Coreg given with sip of water and pain medication for pain rated 10/10 left shoulder. See emar and VS record.
[2019-11-22] MEDS: ENOXAPARIN 40 MG/0.4 ML SYRINGE. SQ SCH ×2 (09:00→12:32)
[2019-11-22] MEDS: PATCH REMOVAL. MC SCH (09:00)
[2019-11-22 11:00] VITALS: BP 162/92
--- NOTE | 2019-11-22 11:00 | PDOC ---
PROGRESS NOTES Subjective Subjective She admits continued left shoulder pain. Objective Objective Vital Signs Date Time Temp Pulse Resp B/P (MAP) Pulse Ox O2 Delivery O2 Flow Rate FiO2 11/22/19 09:05 18 Room Air 11/22/19 08:05 64 182/62 11/22/19 07:00 97.8 98 97.8 Intake and Output 11/22/19 07:00 Intake Total 720 ml Balance 720 ml Intake Oral 720 ml # Voids 6 Physical Exam Physical Exam She is resting supine in bed with ice pack to her left shoulder and she had x- ray evidence of displaced Bantart's fracture of left glenoid process and old right humeral head fracture with nail right shoulder. I am not sure she needs surgery as we don't know age of Bantart's fracture. Assessment Assessment Problems Medical Problems: (1) Altered mental status Status: Acute (2) Hyperglycemia Status: Acute (3) Urinary tract infection Status: Acute Plan Plan of Care Agree with orthopedic consult. To hold off steroid injections to her low back and knees for the time. Comment Review of Relevant I have reviewed the following items jina (where applicable) has been applied. Labs Laboratory Tests Test 11/20/19 11:29 11/20/19 16:53 11/20/19 20:25 11/21/19 07:21 Glucose (Fingerstick) 224 mg/dL (70-99) 251 mg/dL (70-99) 231 mg/dL (70-99) 158 mg/dL (70-99) Test 11/21/19 11:13 11/21/19 16:52 11/21/19 21:19 11/22/19 07:24 Glucose (Fingerstick) 244 mg/dL (70-99) 138 mg/dL (70-99) 146 mg/dL (70-99) 164 mg/dL (70-99) Laboratory Tests Test 11/21/19 11:13 11/21/19 16:52 11/21/19 21:19 11/22/19 07:24 Glucose (Fingerstick) 244 mg/dL (70-99) 138 mg/dL (70-99) 146 mg/dL (70-99) 164 mg/dL (70-99) Microbiology 11/16/19 Urine Culture - Final, Complete 11/16/19 Urine Culture Result 1 (HARITHA) - Final, Complete Medications Current Medications Sodium Chloride 1,000 ml @ 1,000 mls/hr 1X ONCE IV Last administered on 11/16/19at 14:43; Start 11/16/19 at 14:15; Stop 11/16/19 at 15:14; Status DC Ceftriaxone Sodium (Rocephin) 1 gm 1X ONCE IVP Last administered on 11/16/19at 17:20; Start 11/16/19 at 16:30; Stop 11/16/19 at 16:31; Status DC Acetaminophen (Tylenol) 500 mg PRN Q6HRS PRN PO MILD PAIN 1-3 Last administered on 11/17/19at 15:02; Start 11/16/19 at 17:45 Docusate Sodium (Colace) 100 mg PRN DAILY PRN PO HARD STOOLS; Start 11/16/19 at 17:45 Acetaminophen/ Hydrocodone Bitart (Lortab 7.5/325) 1 tab PRN TID PRN PO MODERATE - SEVERE PAIN Last administered on 11/22/19at 08:05; Start 11/16/19 at 17:45 Nitroglycerin (Nitrostat) 0.4 mg PRN Q5MIN PRN SL CHEST PAIN; Start 11/16/19 at 17:45 Senna/Docusate Sodium (Senna Plus) 1 tab PRN DAILY PRN PO CONSTIPATION Last administered on 11/21/19at 08:13; Start 11/16/19 at 17:45 Carvedilol (Coreg) 12.5 mg BIDWMEALS PO Last administered on 11/22/19at 08:05; Start 11/16/19 at 18:00 Insulin Glargine (Lantus Syringe) 20 unit QHS SQ Last administered on 11/20/19at 23:54; Start 11/16/19 at 21:00 Levothyroxine Sodium (Synthroid) 200 mcg DAILY06 PO Last administered on 11/22/19at 06:16; Start 11/17/19 at 06:00 Ondansetron HCl (Zofran) 4 mg PRN Q8HRS PRN IV NAUSEA/VOMITING; Start 11/16/19 at 18:00; Stop 11/16/19 at 21:39; Status DC Morphine Sulfate (Morphine Sulfate) 2 mg PRN Q2HR PRN IV PAIN; Start 11/16/19 at 18:00; Stop 11/17/19 at 17:59; Status DC Acetaminophen (Tylenol) 650 mg PRN Q4HRS PRN PO FEVER; Start 11/16/19 at 18:00; Stop 11/17/19 at 17:07; Status DC Sodium Chloride 1,000 ml @ 125 mls/hr 1X ONCE IV Last administered on 10/23 05/10at 19:48; Start 11/16/19 at 18:00; Stop 11/17/19 at 01:59; Status DC Ondansetron HCl (Zofran) 4 mg PRN Q6HRS PRN IV NAUSEA/VOMITING; Start 11/16/19 at 21:45 Ceftriaxone Sodium (Rocephin) 1 gm Q24H IVP Last administered on 11/17/19at 08:55; Start 11/17/19 at 09:30; Stop 11/18/19 at 10:05; Status DC Magnesium Sulfate 100 ml @ 25 mls/hr 1X ONCE IV Last administered on 11/16/19at 22:06; Start 11/16/19 at 22:00; Stop 11/17/19 at 01:59; Status DC Enoxaparin Sodium (Lovenox 30mg Syringe) 30 mg Q24H SQ Last administered on 11/16/19at 22:06; Start 11/16/19 at 22:00; Stop 11/17/19 at 17:12; Status DC Insulin Human Lispro (HumaLOG) 0-7 UNITS TIDACHC SQ Last administered on 11/21/19at 11:57; Start 11/17/19 at 07:30 Dextrose (Dextrose 50%-Water Syringe) 12.5 gm PRN Q15MIN PRN IV SEE COMMENTS; Start 11/16/19 at 21:45 Dextrose (Iv Dextrose 5%) 250 ml PRN Q15MIN PRN IV SEE COMMENTS; Start 11/16/19 at 21:45 Valacyclovir HCl (Valtrex) 1,000 mg TID PO Last administered on 11/21/19at 20:04; Start 11/17/19 at 14:30 Ascorbic Acid (Vitamin C) 500 mg BID PO Last administered on 11/21/19at 20:05; Start 11/17/19 at 21:00 Diclofenac Sodium (Voltaren) 1 loulou BID TP Last administered on 11/21/19at 20:04; Start 11/17/19 at 21:00 Enoxaparin Sodium (Lovenox 40mg Syringe) 40 mg Q12H SQ Last administered on 11/21/19 08:15; Start 11/17/19 at 21:00 Lactobacillus Rhamnosus (Culturelle) 1 cap BID PO Last administered on 11/21/19 20:05; Start 11/17/19 at 21:00 Cefdinir (Omnicef) 300 mg BID PO Last administered on 11/21/19 20:05; Start 11/18/19 at 10:15 Cyanocobalamin (Vitamin B-12) 1,000 mcg 1X ONCE IM Last administered on 10/23 12:20; Start 11/18/19 at 11:30; Stop 11/18/19 at 11:33; Status DC Cyanocobalamin (Vitamin B-12) 1,000 mcg DAILY PO Last administered on 11/21/19 08:13; Start 11/19/19 at 09:00 Fluoxetine HCl (PROzac) 20 mg DAILY PO Last administered on 11/21/19 08:14; Start 11/19/19 at 14:15 Lidocaine (Lidoderm) 1 patch HS TD Last administered on 11/21/19 20:04; Start 11/19/19 at 21:00 Miscellaneous (Lidoderm Patch Removal) 1 ea DAILY MC Last administered on 11/21/19 08:15; Start 11/20/19 at 09:00 Ondansetron HCl (Zofran Odt) 4 mg PRN Q6HRS PRN PO NAUSEA/VOMITING Last administered on 11/20/19at 18:45; Start 11/20/19 at 18:30 Methylprednisolone Acetate (DEPO-Medrol 40MG VIAL) 40 mg 1X ONCE IM ; Start 11/21/19 at 09:00; Stop 11/21/19 at 09:01; Status DC Bupivacaine HCl (Sensorcaine-Mpf 0.25%) 10 ml 1X ONCE IJ ; Start 11/21/19 at 09:00; Stop 11/21/19 at 09:01; Status DC Methylprednisolone Acetate (DEPO-Medrol 40MG VIAL) 40 mg 1X ONCE IM ; Start 11/21/19 at 09:00; Stop 11/21/19 at 09:01; Status DC Active Scripts Active Novolog Flexpen (Insulin Aspart) 100 Unit/1 Ml Insuln.pen 100 Unit SQ TID PRN PRN Reported Fluoxetine Hcl 20 Mg Capsule 20 Mg PO DAILY 90 Days Lantus Solostar (Insulin Glargine,Hum.rec.anlog) 100 Unit/1 Ml Insuln.pen 20 Unit SQ QHS Senokot-S Tablet (Sennosides/Docusate Sodium) 1 Each Tablet 1 Each PO PRN DAILY PRN Benadryl (Diphenhydramine Hcl) 25 Mg Capsule 25 Mg PO PRN QHS PRN Acetaminophen 500 Mg Tablet 500 Mg PO PRN Q6HRS PRN Spironolactone 25 Mg Tablet 25 Mg PO DAILY Colace (Docusate Sodium) 100 Mg Capsule 100 Mg PO PRN DAILY PRN Coreg (Carvedilol) 25 Mg Tablet 12.5 Mg PO BIDWMEALS Nitrostat (Nitroglycerin) 0.4 Mg Tab.subl 0.4 Mg SL PRN Q5MIN PRN Hydrocodone-Apap 7.5-325 (Hydrocodone Bit/Acetaminophen) 1 Tab Tablet 1 Tab PO PRN TID PRN Synthroid (Levothyroxine Sodium) 200 Mcg Tablet 200 Mcg PO DAILY Vitals/I & O Vital Sign - Last 24 Hours 11/21/19 11/21/19 11/21/19 11/21/19 11:00 11:50 12:50 15:00 Temp 98.0 98.1 98.0 98.1 Pulse 60 57 Resp 16 20 20 16 B/P (MAP) 152/60 (90) 144/57 (86) Pulse Ox 95 95 95 94 O2 Delivery Room Air Room Air Room Air Room Air 11/21/19 11/21/19 11/21/19 11/21/19 16:55 19:00 20:05 21:22 Temp 98.0 98.0 Pulse 57 61 Resp 16 15 B/P (MAP) 144/57 147/51 (83) Pulse Ox 94 94 94 O2 Delivery Room Air Room Air Room Air 11/21/19 11/22/19 11/22/19 11/22/19 23:00 01:39 02:55 03:00 Temp 98.0 97.9 98.0 97.9 Pulse 60 58 Resp 16 15 15 16 B/P (MAP) 138/68 (91) 136/66 (89) Pulse Ox 92 94 94 92 O2 Delivery Room Air Room Air Room Air Room Air 11/22/19 11/22/19 11/22/19 11/22/19 07:00 08:00 08:05 08:05 Temp 97.8 97.8 Pulse 64 64 Resp 16 20 B/P (MAP) 182/62 (102) 182/62 Pulse Ox 98 O2 Delivery Room Air Room Air Room Air 11/22/19 09:05 Resp 18 O2 Delivery Room Air Intake and Output 11/21/19 11/21/19 11/22/19 15:00 23:00 07:00 Intake Total 480 ml 240 ml 0 ml Balance 480 ml 240 ml 0 ml PAWAN FLETCHER MD Nov 22, 2019 10:59
[2019-11-22] MEDS ORDERED: oxyCODONE/APAP 10/325 1 TAB TABLET PO STA (11:44)
--- NOTE | 2019-11-22 12:23 | NUR ---
Dr. Blackman called, OK to let patient eat and take medications. See nursing communication.
[2019-11-22] MEDS: valACYclovir 500 MG TABLET. PO SCH ×3 (12:31→20:57)
[2019-11-22] MEDS: FLUoxetine HCL 20 MG CAPSULE PO SCH (12:31)
[2019-11-22] MEDS: CYANOCOBALAMIN (VITAMIN B-12) 1,000 MCG TABLET. PO SCH (12:31)
[2019-11-22] MEDS: CEFDINIR 300 MG CAPSULE PO SCH ×2 (12:31→20:57)
[2019-11-22] MEDS: ASCORBIC ACID 500 MG TABLET PO SCH ×2 (12:31→20:57)
[2019-11-22] MEDS: LACTOBACILLUS RHAMNOSUS GG 1 CAPSULE. PO SCH ×2 (12:31→20:57)
[2019-11-22] MEDS: DICLOFENAC SODIUM 1% TOPICAL GEL 100GM TUBE. TP SCH ×2 (12:32→20:58)
[2019-11-22] MEDS ORDERED: methylPREDNISolone ACETATE 40 MG/ML VIAL. IM ONE (13:00)
[2019-11-22] MEDS ORDERED: BUPIVACAINE MPF 0.25% 10 ML VIAL. IJ ONE (13:00)
--- NOTE | 2019-11-22 13:34 | PDOC ---
[facility] PROGRESS NOTE Chief Complaint Chief Complaint Acute encephalopathy UTI Urinary incontinence Morbid obesity BMI 50 - Lower back pain Bilateral knee pain Diabetes type 2 Hypertension Hyponatremia Hypomagnesemia Hypothyroid Rash History of Present Illness History of Present Illness Ms Kenney is a 74yo F w/ PMHx DM2, HLD, HTN, CAD s/p stenting who p/w 2 other family members due to confusion and hallucinations, mostly visual. The patient is aware of this and the confusion. She does note a few recent falls, though they were "soft". She c/o some dysuria as well as some mid lower back pain. She has previously been confused with UTIs per family. Labs significant for grossly abnormal UA, cultured and started on rocephin. She was also noted with Na of 128, glucose of 309, Mg 1.4, microcytic anemia, and underwent CXR and CT both of which were negative for acute pathology. EKG was NSR. 11/17: Overnight started feeling a bit better. This morning she lost IV access, now has a rash on her left hand and arm, vesicular, a bit painful. 11/18 Shingles feeling better. She just wishes to rest today. Still very weak. No CP or SOB 11/19: Left shoulder hurting, shingles better. No cough. She is tearful, thinks she needs her prozac. Still grieving over the loss of her in July and trying to evict her daughter in law. Feeling a bit better, still with left shoulder pain, bilateral knee pain. Urine with NGTD. Shingles rash improving. Still very weak. Much less confused. Plan: Treat shingles 1000mg TID valtrex Needs rehab on d/c SNF vs Acute rehab PMR for injections, previously had good outcomes with synvisc in bilateral knees 11/21/19 Patient seen and examined Chart reviewed Discussed with RN 11/22/19 Patient seen and examined Chart reviewed Discussed with RN Called Dr. Pan he just arrived as well I reviewed the chart with her daughter and then talked to her entire family is well Vitals/I&O Vitals/I&O: Vital Signs Date Time Temp Pulse Resp B/P (MAP) Pulse Ox O2 Delivery O2 Flow Rate FiO2 11/22/19 11:54 20 Room Air 11/22/19 11:00 98.4 72 162/92 (115) 100 98.4 I & O 11/21/19 11/21/19 11/22/19 15:00 23:00 07:00 Intake Total 480 ml 240 ml 0 ml Balance 480 ml 240 ml 0 ml Physical Exam General: Alert, Cooperative, No acute distress, Other (Confused, oriented to person) Heart: Regular rate Lungs: Clear Abdomen: Normal bowel sounds, Soft, No tenderness, No hepatosplenomegaly, No masses Extremities: No clubbing, No cyanosis, No edema, Normal pulses, Other (Focal L3-4 pain on palpation) Skin: No rashes, No breakdown, No significant lesion Labs Labs: Laboratory Tests Test 11/21/19 16:52 11/21/19 21:19 11/22/19 07:24 11/22/19 11:53 Glucose (Fingerstick) 138 mg/dL (70-99) 146 mg/dL (70-99) 164 mg/dL (70-99) 166 mg/dL (70-99) Assessment and Plan Assessmemt and Plan Problems Medical Problems: (1) Altered mental status Status: Acute (2) Hyperglycemia Status: Acute (3) Urinary tract infection Status: Acute Acute encephalopathy - likely 2/2 UTI vs hyponatremia UTI - will treat empirically with rocephin, f/u culture results Urinary incontinence - will have bladder training with OT Morbid obesity BMI 50 - counseled on weight loss Lower back pain - new onset, relatively, with her recent falls and confusion, will obtain lumbar X-ray to r/o acute pathology Bilateral knee pain left greater than right - improved after prior injections Diabetes type 2 uncontrolled - will place on basal bolus plus regimen in house Hypertension, controlled - cont meds Hyponatremia - will give IVF, this seems hypovolemic Hypomagnesemia - will replace, check in AM Hypothyroidism - TSH WNL, will cont 200mcg levothyroxine dosing Rash - on left arm, appears vesicular, slightly painful, with the distribution will treat as shingles Plan Awaiting further input from Dr. Pan but at this point looks like no surgery for the Bankart fracture We'll recheck her electrolytes I increased her pain meds Discussed with RN and family at length DVT prophylaxis Full code She was to go to custodial so we will have social economist get involved Comment Review of Relevant I have reviewed the following items jina (where applicable) has been applied. Medications: Current Medications Medications (Trade) Dose Ordered Sig/Natasha Route PRN Reason Start Time Stop Time Status Last Admin Dose Admin Oxycodone/ Acetaminophen (Percocet 10/325) 1 tab 1X STAT PO 11/22/19 11:44 11/22/19 11:49 DC 11/22/19 11:54 CHANDLER BLAKELY III DO Nov 22, 2019 13:34
--- NOTE | 2019-11-22 14:00 | NUR ---
See consents, patient left shoulder injection per Dr. Blackman, see emar after time out observed. Patient tolerated procedure without any difficulty.
--- NOTE | 2019-11-22 14:26 | PDOC2 ---
CONSULT Date of Consult Date of Consult DATE: 11/22/19 TIME: 14:16 Reason for Consult Reason for Consult: Left shoulder pain, Bankart fracture Identification/Chief Complaint Chief Complaint Left shoulder pain. She was admitted with other reasons. Source Source: Chart review, Patient History of Present Illness Reason for Visit: This 74-year-old right-handed woman was admitted to the hospital a few days ago for confusion related to a UTI. She has had some falls recently. Her family helps her up from the floor. Her left shoulder has been painful even before she was admitted to the hospital, and perhaps related to getting up from the falls. Her family reports getting her up from the floor by pulling her up by her hands and arms, and they think they may have injured her left shoulder in the process. She had an x-ray of this left shoulder in May that did not show the current fracture. She reports lateral shoulder pain but denies any history of dislocations in the past and no recollection of the dislocation currently. She denies symptoms of instability of the shoulder. She just has pain with elevation and pain at rest. Past Medical History Cardiovascular: HTN, Hyperlipidemia Endocrine: Diabetes, Hypothyroidism Past Surgical History Past Surgical History: Appendectomy, Cholecystectomy, Tonsillectomy Family History Family History: Diabetes, Hypertension Social History No ALCOHOL: none Drugs: None Current Problem List Problem List Problems Medical Problems: (1) Altered mental status Status: Acute (2) Hyperglycemia Status: Acute (3) Urinary tract infection Status: Acute Current Medications Current Medications Current Medications Sodium Chloride 1,000 ml @ 1,000 mls/hr 1X ONCE IV Last administered on 11/16/19at 14:43; Start 11/16/19 at 14:15; Stop 11/16/19 at 15:14; Status DC Ceftriaxone Sodium (Rocephin) 1 gm 1X ONCE IVP Last administered on 11/16/19at 17:20; Start 11/16/19 at 16:30; Stop 11/16/19 at 16:31; Status DC Acetaminophen (Tylenol) 500 mg PRN Q6HRS PRN PO MILD PAIN 1-3 Last administered on 11/17/19at 15:02; Start 11/16/19 at 17:45 Docusate Sodium (Colace) 100 mg PRN DAILY PRN PO HARD STOOLS; Start 11/16/19 at 17:45 Acetaminophen/ Hydrocodone Bitart (Lortab 7.5/325) 1 tab PRN TID PRN PO MODERATE - SEVERE PAIN Last administered on 11/22/19 08:05; Start 11/16/19 at 17:45 Nitroglycerin (Nitrostat) 0.4 mg PRN Q5MIN PRN SL CHEST PAIN; Start 11/16/19 at 17:45 Senna/Docusate Sodium (Senna Plus) 1 tab PRN DAILY PRN PO CONSTIPATION Last administered on 11/21/19at 08:13; Start 11/16/19 at 17:45 Carvedilol (Coreg) 12.5 mg BIDWMEALS PO Last administered on 11/22/19 08:05; Start 11/16/19 at 18:00 Insulin Glargine (Lantus Syringe) 20 unit QHS SQ Last administered on 11/20/19at 23:54; Start 11/16/19 at 21:00 Levothyroxine Sodium (Synthroid) 200 mcg DAILY06 PO Last administered on 06:16; Start 11/17/19 at 06:00 Ondansetron HCl (Zofran) 4 mg PRN Q8HRS PRN IV NAUSEA/VOMITING; Start 11/16/19 at 18:00; Stop 11/16/19 at 21:39; Status DC Morphine Sulfate (Morphine Sulfate) 2 mg PRN Q2HR PRN IV PAIN; Start 11/16/19 at 18:00; Stop 11/17/19 at 17:59; Status DC Acetaminophen (Tylenol) 650 mg PRN Q4HRS PRN PO FEVER; Start 11/16/19 at 18:00; Stop 11/17/19 at 17:07; Status DC Sodium Chloride 1,000 ml @ 125 mls/hr 1X ONCE IV Last administered on 11/16/19at 19:48; Start 11/16/19 at 18:00; Stop 11/17/19 at 01:59; Status DC Ondansetron HCl (Zofran) 4 mg PRN Q6HRS PRN IV NAUSEA/VOMITING; Start 11/16/19 at 21:45 Ceftriaxone Sodium (Rocephin) 1 gm Q24H IVP Last administered on 11/17/19at 08:55; Start 11/17/19 at 09:30; Stop 11/18/19 at 10:05; Status DC Magnesium Sulfate 100 ml @ 25 mls/hr 1X ONCE IV Last administered on 11/16/19at 22:06; Start 11/16/19 at 22:00; Stop 11/17/19 at 01:59; Status DC Enoxaparin Sodium (Lovenox 30mg Syringe) 30 mg Q24H SQ Last administered on 11/16/19at 22:06; Start 11/16/19 at 22:00; Stop 11/17/19 at 17:12; Status DC Insulin Human Lispro (HumaLOG) 0-7 UNITS TIDACHC SQ Last administered on 11/22/19at 12:33; Start 11/17/19 at 07:30 Dextrose (Dextrose 50%-Water Syringe) 12.5 gm PRN Q15MIN PRN IV SEE COMMENTS; Start 11/16/19 at 21:45 Dextrose (Iv Dextrose 5%) 250 ml PRN Q15MIN PRN IV SEE COMMENTS; Start 9 at 21:45 Valacyclovir HCl (Valtrex) 1,000 mg TID PO Last administered on 11/22/19at 14:05; Start 11/17/19 at 14:30 Ascorbic Acid (Vitamin C) 500 mg BID PO Last administered on 11/22/19at 12:31; Start 11/17/19 at 21:00 Diclofenac Sodium (Voltaren) 1 loulou BID TP Last administered on 11/22/19at 12:32; Start 11/17/19 at 21:00 Enoxaparin Sodium (Lovenox 40mg Syringe) 40 mg Q12H SQ Last administered on 11/22/19at 12:32; Start 11/17/19 at 21:00 Lactobacillus Rhamnosus (Culturelle) 1 cap BID PO Last administered on 11/22/19at 12:31; Start 11/17/19 at 21:00 Cefdinir (Omnicef) 300 mg BID PO Last administered on 11/22/19at 12:31; Start 11/18/19 at 10:15 Cyanocobalamin (Vitamin B-12) 1,000 mcg 1X ONCE IM Last administered on 11/18/19at 12:20; Start 11/18/19 at 11:30; Stop 11/18/19 at 11:33; Status DC Cyanocobalamin (Vitamin B-12) 1,000 mcg DAILY PO Last administered on 11/22/19at 12:31; Start 11/19/19 at 09:00 Fluoxetine HCl (PROzac) 20 mg DAILY PO Last administered on 11/22/19at 12:31; Start 11/19/19 at 14:15 Lidocaine (Lidoderm) 1 patch HS TD Last administered on 11/21/19at 20:04; Start 11/19/19 at 21:00 Miscellaneous (Lidoderm Patch Removal) 1 ea DAILY MC Last administered on 11/22/19at 09:00; Start 11/20/19 at 09:00 Ondansetron HCl (Zofran Odt) 4 mg PRN Q6HRS PRN PO NAUSEA/VOMITING Last administered on 11/20/19at 18:45; Start 11/20/19 at 18:30 Methylprednisolone Acetate (DEPO-Medrol 40MG VIAL) 40 mg 1X ONCE IM ; Start 11/21/19 at 09:00; Stop 11/21/19 at 09:01; Status DC Bupivacaine HCl (Sensorcaine-Mpf 0.25%) 10 ml 1X ONCE IJ ; Start 11/21/19 at 09:00; Stop 11/21/19 at 09:01; Status DC Methylprednisolone Acetate (DEPO-Medrol 40MG VIAL) 40 mg 1X ONCE IM ; Start 11/21/19 at 09:00; Stop 11/21/19 at 09:01; Status DC Oxycodone/ Acetaminophen (Percocet 10/325) 1 tab PRN Q6HRS PRN PO PAIN; Start 11/22/19 at 11:45 Oxycodone/ Acetaminophen (Percocet 10/325) 1 tab 1X STAT PO Last administered on 11/22/19at 11:54; Start 11/22/19 at 11:44; Stop 11/22/19 at 11:49; Status DC Methylprednisolone Acetate (DEPO-Medrol 40MG VIAL) 40 mg 1X ONCE IM Last administered on 11/22/19at 13:00; Start 11/22/19 at 13:00; Stop 11/22/19 at 13:05; Status DC Bupivacaine HCl (Sensorcaine-Mpf 0.25%) 10 ml 1X ONCE IJ Last administered on 11/22/19at 13:00; Start 11/22/19 at 13:00; Stop 11/22/19 at 13:05; Status DC Active Scripts Active Novolog Flexpen (Insulin Aspart) 100 Unit/1 Ml Insuln.pen 100 Unit SQ TID PRN PRN Reported Fluoxetine Hcl 20 Mg Capsule 20 Mg PO DAILY 90 Days Lantus Solostar (Insulin Glargine,Hum.rec.anlog) 100 Unit/1 Ml Insuln.pen 20 Unit SQ QHS Senokot-S Tablet (Sennosides/Docusate Sodium) 1 Each Tablet 1 Each PO PRN DAILY PRN Benadryl (Diphenhydramine Hcl) 25 Mg Capsule 25 Mg PO PRN QHS PRN Acetaminophen 500 Mg Tablet 500 Mg PO PRN Q6HRS PRN Spironolactone 25 Mg Tablet 25 Mg PO DAILY Colace (Docusate Sodium) 100 Mg Capsule 100 Mg PO PRN DAILY PRN Coreg (Carvedilol) 25 Mg Tablet 12.5 Mg PO BIDWMEALS Nitrostat (Nitroglycerin) 0.4 Mg Tab.subl 0.4 Mg SL PRN Q5MIN PRN Hydrocodone-Apap 7.5-325 (Hydrocodone Bit/Acetaminophen) 1 Tab Tablet 1 Tab PO PRN TID PRN Synthroid (Levothyroxine Sodium) 200 Mcg Tablet 200 Mcg PO DAILY Allergies Allergies: Coded Allergies: hydrochlorothiazide (Verified Allergy, Intermediate, Swelling, 04/03/14) valsartan (Verified Allergy, Intermediate, Swelling, 04/03/14) Physical Exam General: Alert, Cooperative HEENT: Atraumatic Lungs: Normal air movement Heart: Regular rate Extremities: Other (gross alignment of the shoulder is normal with no evidence of current dislocation. There is no swelling around the shoulder. There is no ecchymosis. She has active elevation and abduction to at least 90degrees, without pain or instability. I was able to get her gently into the slightly abducted externally rotated position without evidence of instability or apprehension. Her rotator cuff strength is good, without any obvious drop arm sign, and I don't think she has a cuff tear. She does have positive impingement signs on examination. The distal neurovascular function in the hand and arm are normal.) Vitals VITALS Vital Signs Date Time Temp Pulse Resp B/P (MAP) Pulse Ox O2 Delivery O2 Flow Rate FiO2 11/22/19 11:54 20 Room Air 11/22/19 11:00 98.4 72 162/92 (115) 100 98.4 Labs Labs Laboratory Tests Test 11/20/19 16:53 11/20/19 20:25 11/21/19 07:21 11/21/19 11:13 Glucose (Fingerstick) 251 mg/dL (70-99) 231 mg/dL (70-99) 158 mg/dL (70-99) 244 mg/dL (70-99) Test 11/21/19 16:52 11/21/19 21:19 11/22/19 07:24 11/22/19 11:53 Glucose (Fingerstick) 138 mg/dL (70-99) 146 mg/dL (70-99) 164 mg/dL (70-99) 166 mg/dL (70-99) Laboratory Tests Test 11/21/19 16:52 11/21/19 21:19 11/22/19 07:24 11/22/19 11:53 Glucose (Fingerstick) 138 mg/dL (70-99) 146 mg/dL (70-99) 164 mg/dL (70-99) 166 mg/dL (70-99) Images Images Reports reviewed, images independently reviewed left and right shoulder from the current hospitalization, as well as left shoulder from 05/28/19. There is a Bankart fracture which likely indicates a dislocation at some point. Based on the history she had a spontaneous relocation, and this could've been anytime since May. The fracture did not appear present on the May films. There is no evidence of current dislocation. She does have a prominent anterior acromion and prominent arthritic acromioclavicular joint, and would be at risk for impingement syndrome and tendinitis. She has had right shoulder surgery with screw fixation in the greater tuberosity. There are degenerative changes of the right glenohumeral joint. [facility] [address] [place] [address] IMAGING REPORT Signed PATIENT: ROSAURA MERAZ ACCOUNT: [id number] : 1945 LOCATION: ER AGE: 74 SEX: F EXAM STATUS: REG ER ORD. PHYSICIAN: GABRIEL GUERRA APRN REASON: left shoulder pain after fall PROCEDURE: SHOULDER 2+V LEFT Three-view left shoulder dated 05/28/2019. No comparison available. Clinical data indication: Pain after fall. FINDINGS: 3 views left shoulder show normal bony alignment. No displaced fracture. No acute osseous or articular abnormality. Moderate hypertrophic change of the AC joint with mild degenerative change of the glenohumeral joint. IMPRESSION: No acute radiographic abnormality. Degenerative changes as described above. Electronically signed by: Ashkan Diaz MD (05/28/2019 6:55 PM) [employer] DICTATED and SIGNED BY: ASHKAN DIAZ MD DATE: 05/28/19 1933 [facility] [address] [place], [place] [id number] IMAGING REPORT Signed PATIENT: ROSAURA MERAZ ACCOUNT: [id number] : 1945 LOCATION: [address] [place] [address] AGE: 74 SEX: F EXAM STATUS: ADM IN ORD. PHYSICIAN: PAWAN FLETCHER MD REASON: bilat shoulder joint pain PROCEDURE: SHOULDER BILAT 2+V Examination: SHOULDER BILAT 2+V History: Bilateral shoulder pain Comparison/Correlation: Left shoulder x-ray exam 05/28/2019 Findings: 3 views of the right shoulder and 3 views of the left shoulder were obtained. Screws identified involving the right humeral head. Deformity of the right femoral neck is evident. Bilateral acromioclavicular joint degenerative narrowing is present. Bony fragment along the inferior margin of the left bony glenoid is evident. Impression: Displaced Bankart fracture involving the left glenoid is evident and new since the previous left shoulder x-ray exam of 05/28/2019. Old right proximal humeral fracture and postoperative change. No acute process. Electronically signed by: Ernesto Parker MD (11/21/2019 10:12 AM) [facility] DICTATED and SIGNED BY: ERNESTO PARKER MD DATE: 11/21/19 1012 Assessment/Plan Assessment/Plan I do think she had a dislocation at some time, with spontaneous relocation. She doesn't have any ecchymosis or evidence of recent trauma, so I suspect this happened a few months ago. Likely at one of the falls she describes, (when she w as confused), her family helped her up and inadvertently caused a brief dislocation episode with spontaneous relocation. At her age, that would cause stretching of the rotator cuff, and tendinitis and bursitis symptoms (in a young person the cuff usually can stretch without prolonged symptoms). On her examination she has tendinitis and bursitis. If she had recurrent dislocation episodes I would consider surgery but she does not have any symptoms currently of instability or recurrent dislocation, so I'm recommending nonoperative treatment for the Bankart fracture at this time. Most of her symptoms seem to be related to the rotator cuff which likely was stretched and has subsequent tendonitis. I did not detect any full-thickness cuff tear on her examination. I recommended a cortisone injection into the subacromial bursa to help the current painful symptoms, and physical therapy for rotator cuff strengthening. She agrees with that plan and her family does as well. Verbal and written consent was obtained. A timeout procedure was performed with the RN. The skin was cleansed with isopropyl alcohol, and then prepared in sterile fashion with a Chlorhexidine swab. Topical ethyl chloride was used for skin anesthesia. I injected the left shoulder subacromial bursa with 40 mg of Depo-Medrol and 8 mL of 0.25% bupivicaine, under sterile technique. The patient tolerated the procedure well. A Band-Aid was placed CRISTELA ANNE MD Nov 22, 2019 14:26
[2019-11-22 15:00] VITALS: BP 124/46
--- NOTE | 2019-11-22 15:00 | NUR ---
1130 insulin dose undone and entered manually as took 1630 dose slot. See emar.
[2019-11-22 19:00] VITALS: BP 125/48
[2019-11-22] MEDS: LIDOCAINE (700MG/PATCH) PATCH. TD SCH (20:58)
[2019-11-22] MEDS: INSULIN GLARGINE SYRINGE. SQ SCH (21:04)
[2019-11-22 23:00] VITALS: BP 151/70
[2019-11-23 03:00] VITALS: BP 151/147
[2019-11-23 05:12] LABS: BASO % 0 % (0-3); EOS % 0 % (0-3); HEMATOCRIT 37.1 % (36.0-47.0); HEMOGLOBIN 11.9 g/dL (12.0-15.5); LYMPH # 2.3 x10^3/uL (1.0-4.8); LYMPH % 22 % (24-48); MEAN CORPUSCULAR HEMOGLOBIN 24 pg (25-35); MEAN CORPUSCULAR HGB CONC 32 g/dL (31-37); MEAN CORPUSCULAR VOLUME 76 fL (79-100); MONO # 0.3 x10^3/uL (0.0-1.1); MONO % 3 % (0-9); NEUT # 7.8 x10^3/uL (1.8-7.7); NEUT % 75 % (31-73); PLATELET COUNT 293 x10^3/uL (140-400); RED BLOOD COUNT 4.89 x10^6/uL (3.50-5.40); RED CELL DISTRIBUTION WIDTH 17.1 % (11.5-14.5); WHITE BLOOD COUNT 10.5 x10^3/uL (4.0-11.0)
[2019-11-23 05:40] LABS: CALCIUM 9.5 mg/dL (8.5-10.1); GFR 53.9; POTASSIUM 4.3 mmol/L (3.5-5.1)
[2019-11-23] MEDS: LEVOTHYROXINE 100 MCG TABLET PO SCH (05:46)
[2019-11-23 07:00] VITALS: BP 129/105
--- NOTE | 2019-11-23 07:45 | PDOC ---
[facility] PROGRESS NOTE Chief Complaint Chief Complaint Left shoulder Bankart fracture status post steroid injection yesterday by Dr. Pan Acute encephalopathy UTI Urinary incontinence Morbid obesity BMI 50 - Lower back pain Bilateral knee pain Diabetes type 2 Hypertension Hyponatremia Hypomagnesemia Hypothyroid Rash History of Present Illness History of Present Illness Ms Kenney is a 74yo F w/ PMHx DM2, HLD, HTN, CAD s/p stenting who p/w 2 other family members due to confusion and hallucinations, mostly visual. The patient is aware of this and the confusion. She does note a few recent falls, though they were "soft". She c/o some dysuria as well as some mid lower back pain. She has previously been confused with UTIs per family. Labs significant for grossly abnormal UA, cultured and started on rocephin. She was also noted with Na of 128, glucose of 309, Mg 1.4, microcytic anemia, and underwent CXR and CT both of which were negative for acute pathology. EKG was NSR. 11/17: Overnight started feeling a bit better. This morning she lost IV access, now has a rash on her left hand and arm, vesicular, a bit painful. 11/18 Shingles feeling better. She just wishes to rest today. Still very weak. No CP or SOB 11/19: Left shoulder hurting, shingles better. No cough. She is tearful, thinks she needs her prozac. Still grieving over the loss of her in July and trying to evict her daughter in law. Feeling a bit better, still with left shoulder pain, bilateral knee pain. Urine with NGTD. Shingles rash improving. Still very weak. Much less confused. Plan: Treat shingles 1000mg TID valtrex Needs rehab on d/c SNF vs Acute rehab PMR for injections, previously had good outcomes with synvisc in bilateral knees 11/21/19 Patient seen and examined Chart reviewed Discussed with RN 11/22/19 Patient seen and examined Chart reviewed Discussed with RN Called Dr. Pan he just arrived as well I reviewed the chart with her daughter and then talked to her entire family is well [id number] Patient seen and examined Chart reviewed I helped Dr. Pan inject her left shoulder yesterday with steroids Vitals/I&O Vitals/I&O: Vital Signs Date Time Temp Pulse Resp B/P (MAP) Pulse Ox O2 Delivery O2 Flow Rate FiO2 11/23/19 03:00 97.9 60 18 151/147 (148) 95 Room Air 97.9 I & O 11/22/19 11/22/19 11/23/19 15:00 23:00 07:00 Intake Total 0 ml 480 ml 350 ml Balance 0 ml 480 ml 350 ml Physical Exam General: No acute distress, Other (resting with no apparent distress looks more comfortable finally) Heart: Regular rate, Normal S1 Lungs: Clear Abdomen: Normal bowel sounds, Soft, No tenderness, No hepatosplenomegaly, No masses Extremities: No clubbing, Other (gross alignment of the shoulder is normal with no evidence of current dislocation. There is no swelling around the shoulder. There is no ecchymosis. She has active elevation and abduction to at least 90degrees, without pain or instability. I was able to get her gently into the slightly abducted externally rotated position without evidence of instability or apprehension. Her rotator cuff strength is good, without any obvious drop arm sign, and I don't think she has a cuff tear. She does have positive impingement signs on examination. The distal neurovascular function in the hand and arm are normal.) Skin: No rashes, No breakdown, No significant lesion Labs Labs: Laboratory Tests Test 11/22/19 11:53 11/22/19 16:25 11/22/19 20:53 11/23/19 04:05 Glucose (Fingerstick) 166 mg/dL (70-99) 194 mg/dL (70-99) 263 mg/dL (70-99) White Blood Count 10.5 x10^3/uL (4.0-11.0) Red Blood Count 4.89 x10^6/uL (3.50-5.40) Hemoglobin 11.9 g/dL (12.0-15.5) Hematocrit 37.1 % (36.0-47.0) Mean Corpuscular Volume 76 fL (79-100) Mean Corpuscular Hemoglobin 24 pg (25-35) Mean Corpuscular Hemoglobin Concent 32 g/dL (31-37) Red Cell Distribution Width 17.1 % (11.5-14.5) Platelet Count 293 x10^3/uL (140-400) Neutrophils (%) (Auto) 75 % (31-73) Lymphocytes (%) (Auto) 22 % (24-48) Monocytes (%) (Auto) 3 % (0-9) Eosinophils (%) (Auto) 0 % (0-3) Basophils (%) (Auto) 0 % (0-3) Neutrophils # (Auto) 7.8 x10^3/uL (1.8-7.7) Lymphocytes # (Auto) 2.3 x10^3/uL (1.0-4.8) Monocytes # (Auto) 0.3 x10^3/uL (0.0-1.1) Eosinophils # (Auto) 0.0 x10^3/uL (0.0-0.7) Basophils # (Auto) 0.0 x10^3/uL (0.0-0.2) Sodium Level 131 mmol/L (136-145) Potassium Level 4.3 mmol/L (3.5-5.1) Chloride Level 96 mmol/L (98-107) Carbon Dioxide Level 28 mmol/L (21-32) Anion Gap 7 (6-14) Blood Urea Nitrogen 19 mg/dL (7-20) Creatinine 1.0 mg/dL (0.6-1.0) Estimated GFR (Cockcroft-Gault) 53.9 Glucose Level 250 mg/dL (70-99) Calcium Level 9.5 mg/dL (8.5-10.1) Assessment and Plan Assessmemt and Plan Problems Medical Problems: (1) Altered mental status Status: Acute (2) Hyperglycemia Status: Acute (3) Urinary tract infection Status: Acute Left shoulder Bankart fracture status post steroid injection yesterday by Dr. Pan Acute encephalopathy UTI Urinary incontinence Morbid obesity BMI 50 - Lower back pain Bilateral knee pain Diabetes type 2 Hypertension Hyponatremia Hypomagnesemia Hypothyroid Rash Plan Continue to monitor the left shoulder PT OT Antibiotics When necessary pain meds Continue home meds Monitor electrolytes Suspect she needs to go to half-way and actually she agrees with Comment Review of Relevant I have reviewed the following items jina (where applicable) has been applied. Medications: Current Medications Medications (Trade) Dose Ordered Sig/Natasha Route PRN Reason Start Time Stop Time Status Last Admin Dose Admin Oxycodone/ Acetaminophen (Percocet 10/325) 1 tab 1X STAT PO 11/22/19 11:44 11/22/19 11:49 DC 11/22/19 11:54 Methylprednisolone Acetate (DEPO-Medrol 40MG VIAL) 40 mg 1X ONCE IM 11/22/19 13:00 11/22/19 13:05 DC 11/22/19 13:00 Bupivacaine HCl (Sensorcaine-Mpf 0.25%) 10 ml 1X ONCE IJ 11/22/19 13:00 11/22/19 13:05 DC 11/22/19 13:00 CHANDLER BLAKELY III DO Nov 23, 2019 07:45
[2019-11-23] MEDS: CYANOCOBALAMIN (VITAMIN B-12) 1,000 MCG TABLET. PO SCH (08:16)
[2019-11-23] MEDS: FLUoxetine HCL 20 MG CAPSULE PO SCH (08:16)
[2019-11-23] MEDS: CEFDINIR 300 MG CAPSULE PO SCH ×2 (08:16→22:14)
[2019-11-23] MEDS: valACYclovir 500 MG TABLET. PO SCH ×3 (08:16→22:13)
[2019-11-23] MEDS: LACTOBACILLUS RHAMNOSUS GG 1 CAPSULE. PO SCH ×2 (08:16→22:13)
[2019-11-23] MEDS: ASCORBIC ACID 500 MG TABLET PO SCH ×2 (08:16→22:23)
[2019-11-23] MEDS: CARVEDILOL 12.5 MG TABLET. PO SCH ×2 (08:17→17:11)
[2019-11-23] MEDS: DICLOFENAC SODIUM 1% TOPICAL GEL 100GM TUBE. TP SCH ×2 (08:17→22:12)
[2019-11-23] MEDS: ENOXAPARIN 40 MG/0.4 ML SYRINGE. SQ SCH ×2 (08:18→22:14)
[2019-11-23] MEDS: HYDROcodone/APAP 7.5/325MG 1 TAB TABLET PO PRN ×2 (08:18→13:35)
[2019-11-23] MEDS: INSULIN LISPRO 300 UNITS/3 ML VIAL. SQ SCH ×4 (08:21→22:18)
[2019-11-23] MEDS: PATCH REMOVAL. MC SCH (08:22)
--- NOTE | 2019-11-23 09:21 | PDOC ---
PROGRESS NOTES Subjective Subjective She feels better with steroid injection to her left shoulder with left shoulder pain. Objective Objective Vital Signs Date Time Temp Pulse Resp B/P (MAP) Pulse Ox O2 Delivery O2 Flow Rate FiO2 11/23/19 08:18 18 Room Air 11/23/19 08:17 66 129/105 11/23/19 03:00 97.9 95 97.9 Intake and Output 11/23/19 07:00 Intake Total 830 ml Balance 830 ml Intake Oral 830 ml # Voids 3 Physical Exam Physical Exam She is alert,supine in bed and she did not get out of bed for the last 2 days.She denies any significant back and knee joint pain. Assessment Assessment Problems Medical Problems: (1) Altered mental status Status: Acute (2) Hyperglycemia Status: Acute (3) Urinary tract infection Status: Acute Plan Plan of Care To get her up as tolerated. Comment Review of Relevant I have reviewed the following items jina (where applicable) has been applied. Labs Laboratory Tests Test 11/21/19 11:13 11/21/19 16:52 11/21/19 21:19 11/22/19 07:24 Glucose (Fingerstick) 244 mg/dL (70-99) 138 mg/dL (70-99) 146 mg/dL (70-99) 164 mg/dL (70-99) Test 11/22/19 11:53 11/22/19 16:25 11/22/19 20:53 11/23/19 04:05 Glucose (Fingerstick) 166 mg/dL (70-99) 194 mg/dL (70-99) 263 mg/dL (70-99) White Blood Count 10.5 x10^3/uL (4.0-11.0) Red Blood Count 4.89 x10^6/uL (3.50-5.40) Hemoglobin 11.9 g/dL (12.0-15.5) Hematocrit 37.1 % (36.0-47.0) Mean Corpuscular Volume 76 fL (79-100) Mean Corpuscular Hemoglobin 24 pg (25-35) Mean Corpuscular Hemoglobin Concent 32 g/dL (31-37) Red Cell Distribution Width 17.1 % (11.5-14.5) Platelet Count 293 x10^3/uL (140-400) Neutrophils (%) (Auto) 75 % (31-73) Lymphocytes (%) (Auto) 22 % (24-48) Monocytes (%) (Auto) 3 % (0-9) Eosinophils (%) (Auto) 0 % (0-3) Basophils (%) (Auto) 0 % (0-3) Neutrophils # (Auto) 7.8 x10^3/uL (1.8-7.7) Lymphocytes # (Auto) 2.3 x10^3/uL (1.0-4.8) Monocytes # (Auto) 0.3 x10^3/uL (0.0-1.1) Eosinophils # (Auto) 0.0 x10^3/uL (0.0-0.7) Basophils # (Auto) 0.0 x10^3/uL (0.0-0.2) Sodium Level 131 mmol/L (136-145) Potassium Level 4.3 mmol/L (3.5-5.1) Chloride Level 96 mmol/L (98-107) Carbon Dioxide Level 28 mmol/L (21-32) Anion Gap 7 (6-14) Blood Urea Nitrogen 19 mg/dL (7-20) Creatinine 1.0 mg/dL (0.6-1.0) Estimated GFR (Cockcroft-Gault) 53.9 Glucose Level 250 mg/dL (70-99) Calcium Level 9.5 mg/dL (8.5-10.1) Test 11/23/19 08:10 Glucose (Fingerstick) 212 mg/dL (70-99) Laboratory Tests Test 11/22/19 11:53 11/22/19 16:25 11/22/19 20:53 11/23/19 04:05 Glucose (Fingerstick) 166 mg/dL (70-99) 194 mg/dL (70-99) 263 mg/dL (70-99) White Blood Count 10.5 x10^3/uL (4.0-11.0) Red Blood Count 4.89 x10^6/uL (3.50-5.40) Hemoglobin 11.9 g/dL (12.0-15.5) Hematocrit 37.1 % (36.0-47.0) Mean Corpuscular Volume 76 fL (79-100) Mean Corpuscular Hemoglobin 24 pg (25-35) Mean Corpuscular Hemoglobin Concent 32 g/dL (31-37) Red Cell Distribution Width 17.1 % (11.5-14.5) Platelet Count 293 x10^3/uL (140-400) Neutrophils (%) (Auto) 75 % (31-73) Lymphocytes (%) (Auto) 22 % (24-48) Monocytes (%) (Auto) 3 % (0-9) Eosinophils (%) (Auto) 0 % (0-3) Basophils (%) (Auto) 0 % (0-3) Neutrophils # (Auto) 7.8 x10^3/uL (1.8-7.7) Lymphocytes # (Auto) 2.3 x10^3/uL (1.0-4.8) Monocytes # (Auto) 0.3 x10^3/uL (0.0-1.1) Eosinophils # (Auto) 0.0 x10^3/uL (0.0-0.7) Basophils # (Auto) 0.0 x10^3/uL (0.0-0.2) Sodium Level 131 mmol/L (136-145) Potassium Level 4.3 mmol/L (3.5-5.1) Chloride Level 96 mmol/L (98-107) Carbon Dioxide Level 28 mmol/L (21-32) Anion Gap 7 (6-14) Blood Urea Nitrogen 19 mg/dL (7-20) Creatinine 1.0 mg/dL (0.6-1.0) Estimated GFR (Cockcroft-Gault) 53.9 Glucose Level 250 mg/dL (70-99) Calcium Level 9.5 mg/dL (8.5-10.1) Test 11/23/19 08:10 Glucose (Fingerstick) 212 mg/dL (70-99) Microbiology 11/16/19 Urine Culture - Final, Complete 11/16/19 Urine Culture Result 1 (HARITHA) - Final, Complete Medications Current Medications Sodium Chloride 1,000 ml @ 1,000 mls/hr 1X ONCE IV Last administered on 11/16/19at 14:43; Start 11/16/19 at 14:15; Stop 11/16/19 at 15:14; Status DC Ceftriaxone Sodium (Rocephin) 1 gm 1X ONCE IVP Last administered on 11/16/19at 17:20; Start 11/16/19 at 16:30; Stop 11/16/19 at 16:31; Status DC Acetaminophen (Tylenol) 500 mg PRN Q6HRS PRN PO MILD PAIN 1-3 Last administered on 11/17/19at 15:02; Start 11/16/19 at 17:45 Docusate Sodium (Colace) 100 mg PRN DAILY PRN PO HARD STOOLS; Start 11/16/19 at 17:45 Acetaminophen/ Hydrocodone Bitart (Lortab 7.5/325) 1 tab PRN TID PRN PO MODERATE - SEVERE PAIN Last administered on 11/23/19 08:18; Start 11/16/19 at 17:45 Nitroglycerin (Nitrostat) 0.4 mg PRN Q5MIN PRN SL CHEST PAIN; Start 11/16/19 at 17:45 Senna/Docusate Sodium (Senna Plus) 1 tab PRN DAILY PRN PO CONSTIPATION Last administered on 11/21/19 08:13; Start 11/16/19 at 17:45 Carvedilol (Coreg) 12.5 mg BIDWMEALS PO Last administered on 11/23/19 08:17; Start 11/16/19 at 18:00 Insulin Glargine (Lantus Syringe) 20 unit QHS SQ Last administered on 11/22/19 21:04; Start 11/16/19 at 21:00 Levothyroxine Sodium (Synthroid) 200 mcg DAILY06 PO Last administered on 11/23/19 05:46; Start 11/17/19 at 06:00 Ondansetron HCl (Zofran) 4 mg PRN Q8HRS PRN IV NAUSEA/VOMITING; Start 11/16/19 at 18:00; Stop 11/16/19 at 21:39; Status DC Morphine Sulfate (Morphine Sulfate) 2 mg PRN Q2HR PRN IV PAIN; Start 11/16/19 at 18:00; Stop 11/17/19 at 17:59; Status DC Acetaminophen (Tylenol) 650 mg PRN Q4HRS PRN PO FEVER; Start 11/16/19 at 18:00; Stop 11/17/19 at 17:07; Status DC Sodium Chloride 1,000 ml @ 125 mls/hr 1X ONCE IV Last administered on at 19:48; Start 11/16/19 at 18:00; Stop 11/17/19 at 01:59; Status DC Ondansetron HCl (Zofran) 4 mg PRN Q6HRS PRN IV NAUSEA/VOMITING; Start 11/16/19 at 21:45 Ceftriaxone Sodium (Rocephin) 1 gm Q24H IVP Last administered on 11/17/19at 08:55; Start 11/17/19 at 09:30; Stop 11/18/19 at 10:05; Status DC Magnesium Sulfate 100 ml @ 25 mls/hr 1X ONCE IV Last administered on 11/16/19at 22:06; Start 11/16/19 at 22:00; Stop 11/17/19 at 01:59; Status DC Enoxaparin Sodium (Lovenox 30mg Syringe) 30 mg Q24H SQ Last administered on 11/16/19at 22:06; Start 11/16/19 at 22:00; Stop 11/17/19 at 17:12; Status DC Insulin Human Lispro (HumaLOG) 0-7 UNITS TIDACHC SQ Last administered on 11/23/19 08:21; Start 11/17/19 at 07:30 Dextrose (Dextrose 50%-Water Syringe) 12.5 gm PRN Q15MIN PRN IV SEE COMMENTS; Start 11/16/19 at 21:45 Dextrose (Iv Dextrose 5%) 250 ml PRN Q15MIN PRN IV SEE COMMENTS; Start 11/16/19 at 21:45 Valacyclovir HCl (Valtrex) 1,000 mg TID PO Last administered on 11/23/19 08:16; Start 11/17/19 at 14:30 Ascorbic Acid (Vitamin C) 500 mg BID PO Last administered on 11/23/19 08:16; Start 11/17/19 at 21:00 Diclofenac Sodium (Voltaren) 1 loulou BID TP Last administered on 11/23/19 08:17; Start 11/17/19 at 21:00 Enoxaparin Sodium (Lovenox 40mg Syringe) 40 mg Q12H SQ Last administered on 11/23/19 08:18; Start 11/17/19 at 21:00 Lactobacillus Rhamnosus (Culturelle) 1 cap BID PO Last administered on 11/23/19 08:16; Start 11/17/19 at 21:00 Cefdinir (Omnicef) 300 mg BID PO Last administered on 11/23/19 08:16; Start 11/18/19 at 10:15 Cyanocobalamin (Vitamin B-12) 1,000 mcg 1X ONCE IM Last administered on 11/18/19at 12:20; Start 11/18/19 at 11:30; Stop 11/18/19 at 11:33; Status DC Cyanocobalamin (Vitamin B-12) 1,000 mcg DAILY PO Last administered on 11/23/19 08:16; Start 11/19/19 at 09:00 Fluoxetine HCl (PROzac) 20 mg DAILY PO Last administered on 11/23/19 08:16; Start 11/19/19 at 14:15 Lidocaine (Lidoderm) 1 patch HS TD Last administered on 11/22/19at 20:58; Start 11/19/19 at 21:00 Miscellaneous (Lidoderm Patch Removal) 1 ea DAILY MC Last administered on 11/22/19at 09:00; Start 11/20/19 at 09:00 Ondansetron HCl (Zofran Odt) 4 mg PRN Q6HRS PRN PO NAUSEA/VOMITING Last administered on 11/20/19at 18:45; Start 11/20/19 at 18:30 Methylprednisolone Acetate (DEPO-Medrol 40MG VIAL) 40 mg 1X ONCE IM ; Start 11/21/19 at 09:00; Stop 11/21/19 at 09:01; Status DC Bupivacaine HCl (Sensorcaine-Mpf 0.25%) 10 ml 1X ONCE IJ ; Start 11/21/19 at 09:00; Stop 11/21/19 at 09:01; Status DC Methylprednisolone Acetate (DEPO-Medrol 40MG VIAL) 40 mg 1X ONCE IM ; Start 11/21/19 at 09:00; Stop 11/21/19 at 09:01; Status DC Oxycodone/ Acetaminophen (Percocet 10/325) 1 tab PRN Q6HRS PRN PO PAIN; Start 11/22/19 at 11:45 Oxycodone/ Acetaminophen (Percocet 10/325) 1 tab 1X STAT PO Last administered on 11/22/19at 11:54; Start 11/22/19 at 11:44; Stop 11/22/19 at 11:49; Status DC Methylprednisolone Acetate (DEPO-Medrol 40MG VIAL) 40 mg 1X ONCE IM Last administered on 11/22/19at 13:00; Start 11/22/19 at 13:00; Stop 11/22/19 at 13:05; Status DC Bupivacaine HCl (Sensorcaine-Mpf 0.25%) 10 ml 1X ONCE IJ Last administered on 11/22/19at 13:00; Start 11/22/19 at 13:00; Stop 11/22/19 at 13:05; Status DC Active Scripts Active Novolog Flexpen (Insulin Aspart) 100 Unit/1 Ml Insuln.pen 100 Unit SQ TID PRN PRN Reported Fluoxetine Hcl 20 Mg Capsule 20 Mg PO DAILY 90 Days Lantus Solostar (Insulin Glargine,Hum.rec.anlog) 100 Unit/1 Ml Insuln.pen 20 Unit SQ QHS Senokot-S Tablet (Sennosides/Docusate Sodium) 1 Each Tablet 1 Each PO PRN DAILY PRN Benadryl (Diphenhydramine Hcl) 25 Mg Capsule 25 Mg PO PRN QHS PRN Acetaminophen 500 Mg Tablet 500 Mg PO PRN Q6HRS PRN Spironolactone 25 Mg Tablet 25 Mg PO DAILY Colace (Docusate Sodium) 100 Mg Capsule 100 Mg PO PRN DAILY PRN Coreg (Carvedilol) 25 Mg Tablet 12.5 Mg PO BIDWMEALS Nitrostat (Nitroglycerin) 0.4 Mg Tab.subl 0.4 Mg SL PRN Q5MIN PRN Hydrocodone-Apap 7.5-325 (Hydrocodone Bit/Acetaminophen) 1 Tab Tablet 1 Tab PO PRN TID PRN Synthroid (Levothyroxine Sodium) 200 Mcg Tablet 200 Mcg PO DAILY Vitals/I & O Vital Sign - Last 24 Hours 11/22/19 11/22/19 11/22/19 11/22/19 11:00 11:54 12:54 15:00 Temp 98.4 98.0 98.4 98.0 Pulse 72 65 Resp 16 20 18 16 B/P (MAP) 162/92 (115) 124/46 (72) Pulse Ox 100 96 O2 Delivery Room Air Room Air Room Air Room Air 11/22/19 11/22/19 11/22/19 11/22/19 16:56 19:00 21:07 22:11 Temp 98.4 98.4 Pulse 65 64 Resp 18 15 15 B/P (MAP) 124/46 125/48 (73) Pulse Ox 90 90 90 O2 Delivery Room Air Room Air Room Air 11/22/19 11/23/19 11/23/19 11/23/19 23:00 03:00 08:17 08:18 Temp 98.0 97.9 98.0 97.9 Pulse 64 60 66 Resp 18 18 18 B/P (MAP) 151/70 (97) 151/147 (148) 129/105 Pulse Ox 92 95 O2 Delivery Room Air Room Air Room Air Intake and Output 11/22/19 11/22/19 11/23/19 15:00 23:00 07:00 Intake Total 0 ml 480 ml 350 ml Balance 0 ml 480 ml 350 ml PAWAN FLETCHER MD Nov 23, 2019 09:21
[2019-11-23 11:00] VITALS: BP 175/63
--- NOTE | 2019-11-23 12:34 | NUR ---
SW following. Discussed with RN. PT/OT recommending SNU. SW met with pt, pt wants [facility] as has been in the past. SW faxed updates to [facility]. SW awaiting acceptance decision, and insurance approval.
[2019-11-23 15:00] VITALS: BP 166/65
[2019-11-23 19:00] VITALS: BP 125/54
[2019-11-23] MEDS: INSULIN GLARGINE SYRINGE. SQ SCH (22:16)
[2019-11-23] MEDS: LIDOCAINE (700MG/PATCH) PATCH. TD SCH (22:20)
[2019-11-23] MEDS: oxyCODONE/APAP 10/325 1 TAB TABLET PO PRN (22:31)
[2019-11-23 23:00] VITALS: BP 157/62
--- NOTE | 2019-11-24 02:44 | NUR ---
ASSESSMENT: PT REMAIN ALERT AND ORIENT TIMES THREE. C/O PAIN IN LEFT SHOULDER. PRN PAIN MEDICATION PROVIDE ADEQUATE RELIEF. PT SLEEPY YET EASY TO AROUSE. DENIES SOB, NV. ISOLATION CONTINUES OF SHINGLES. POSSIBLE DC TO [facility] LATER TODAY. SLOW PROGRESS TOWARDS DC GOALS, WILL CONTINUE TO MONITOR.
[2019-11-24 03:00] VITALS: BP 130/49
[2019-11-24] MEDS: LEVOTHYROXINE 100 MCG TABLET PO SCH (05:42)
[2019-11-24 07:00] VITALS: BP 176/74
[2019-11-24 07:08] LABS: BASO # 0.1 x10^3/uL (0.0-0.2); BASO % 1 % (0-3); EOS # 0.1 x10^3/uL (0.0-0.7); EOS % 1 % (0-3); HEMATOCRIT 36.5 % (36.0-47.0); HEMOGLOBIN 11.4 g/dL (12.0-15.5); LYMPH # 3.3 x10^3/uL (1.0-4.8); LYMPH % 35 % (24-48); MEAN CORPUSCULAR HEMOGLOBIN 24 pg (25-35); MEAN CORPUSCULAR HGB CONC 31 g/dL (31-37); MEAN CORPUSCULAR VOLUME 77 fL (79-100); MONO # 0.6 x10^3/uL (0.0-1.1); MONO % 6 % (0-9); NEUT # 5.3 x10^3/uL (1.8-7.7); NEUT % 57 % (31-73); PLATELET COUNT 283 x10^3/uL (140-400); RED BLOOD COUNT 4.75 x10^6/uL (3.50-5.40); RED CELL DISTRIBUTION WIDTH 17.4 % (11.5-14.5); WHITE BLOOD COUNT 9.3 x10^3/uL (4.0-11.0)
[2019-11-24 07:25] LABS: CALCIUM 9.5 mg/dL (8.5-10.1); GFR 53.9; POTASSIUM 4.3 mmol/L (3.5-5.1)
[2019-11-24] MEDS: CYANOCOBALAMIN (VITAMIN B-12) 1,000 MCG TABLET. PO SCH (08:39)
[2019-11-24] MEDS: FLUoxetine HCL 20 MG CAPSULE PO SCH (08:40)
[2019-11-24] MEDS: CEFDINIR 300 MG CAPSULE PO SCH ×2 (08:40→22:07)
[2019-11-24] MEDS: CARVEDILOL 12.5 MG TABLET. PO SCH ×2 (08:40→16:35)
[2019-11-24] MEDS: valACYclovir 500 MG TABLET. PO SCH ×3 (08:40→22:07)
[2019-11-24] MEDS: ASCORBIC ACID 500 MG TABLET PO SCH ×2 (08:40→22:08)
[2019-11-24] MEDS: ENOXAPARIN 40 MG/0.4 ML SYRINGE. SQ SCH ×2 (08:40→22:08)
[2019-11-24] MEDS: LACTOBACILLUS RHAMNOSUS GG 1 CAPSULE. PO SCH ×2 (08:40→22:08)
[2019-11-24] MEDS: DICLOFENAC SODIUM 1% TOPICAL GEL 100GM TUBE. TP SCH ×2 (08:41→22:07)
[2019-11-24] MEDS: INSULIN LISPRO 300 UNITS/3 ML VIAL. SQ SCH ×4 (08:56→22:12)
[2019-11-24] MEDS: PATCH REMOVAL. MC SCH (09:00)
[2019-11-24] MEDS: oxyCODONE/APAP 10/325 1 TAB TABLET PO PRN ×2 (09:02→16:35)
[2019-11-24 11:00] VITALS: BP 161/67
--- NOTE | 2019-11-24 11:34 | PDOC ---
PROGRESS NOTES Chief Complaint Chief Complaint impression Left shoulder Bankart fracture status post steroid injection by Dr. Pan Acute encephalopathy UTI Urinary incontinence Morbid obesity BMI 50 - Lower back pain Bilateral knee pain Diabetes type 2 Hypertension Hyponatremia Hypomagnesemia Hypothyroid Rash 1/3 pain overall in her knees,low back,hip and shoulder area.slow to resolve History of Present Illness History of Present Illness Ms Kenney is a 74yo F w/ PMHx DM2, HLD, HTN, CAD s/p stenting who p/w 2 other family members due to confusion and hallucinations, mostly visual. The patient is aware of this and the confusion. She does note a few recent falls, though th ey were "soft". She c/o some dysuria as well as some mid lower back pain. She has previously been confused with UTIs per family. Labs significant for grossly abnormal UA, cultured and started on rocephin. She was also noted with Na of 128, glucose of 309, Mg 1.4, microcytic anemia, and underwent CXR and CT both of which were negative for acute pathology. EKG was NSR. 11/17: Overnight started feeling a bit better. This morning she lost IV access, now has a rash on her left hand and arm, vesicular, a bit painful. 11/18 Shingles feeling better. She just wishes to rest today. Still very weak. No CP or SOB 11/19: Left shoulder hurting, shingles better. No cough. She is tearful, thinks she needs her prozac. Still grieving over the loss of her in July and trying to evict her daughter in law. Feeling a bit better, still with left shoulder pain, bilateral knee pain. Urine with NGTD. Shingles rash improving. Still very weak. Much less confused. Plan: Treat shingles 1000mg TID valtrex Needs rehab on d/c SNF vs Acute rehab PMR for injections, previously had good outcomes with synvisc in bilateral knees 11/21/19 Patient seen and examined Chart reviewed Discussed with RN 11/22/19 Patient seen and examined Chart reviewed Discussed with RN Called Dr. Pan he just arrived as well I reviewed the chart with her daughter and then talked to her entire family is well [id number] Patient seen and examined Chart reviewed I helped Dr. Pan inject her left shoulder yesterday with steroids Vitals Vitals Vital Signs Date Time Temp Pulse Resp B/P (MAP) Pulse Ox O2 Delivery O2 Flow Rate FiO2 11/24/19 11:00 98.0 61 14 161/67 (98) 94 Room Air 98.0 Physical Exam General: Alert, Oriented X3, Cooperative, No acute distress, Other (resting with no apparent distress looks more comfortable finally) Heart: Regular rate, Normal S1, Normal S2 Lungs: Clear Abdomen: Normal bowel sounds, Soft, No tenderness, No hepatosplenomegaly, No masses Extremities: No clubbing, Other (gross alignment of the shoulder is normal with no evidence of current dislocation. There is no swelling around the shoulder. There is no ecchymosis. She has active elevation and abduction to at least 90degrees, without pain or instability. I was able to get her gently into the slightly abducted externally rotated position without evidence of instability or apprehension. Her rotator cuff strength is good, without any obvious drop arm sign, and I don't think she has a cuff tear. She does have positive impingement signs on examination. The distal neurovascular function in the hand and arm are normal.) Skin: No rashes, No breakdown, No significant lesion Labs LABS Laboratory Tests Test 11/23/19 16:48 11/23/19 21:00 11/24/19 06:05 11/24/19 07:52 Glucose (Fingerstick) 224 mg/dL (70-99) 275 mg/dL (70-99) 186 mg/dL (70-99) White Blood Count 9.3 x10^3/uL (4.0-11.0) Red Blood Count 4.75 x10^6/uL (3.50-5.40) Hemoglobin 11.4 g/dL (12.0-15.5) Hematocrit 36.5 % (36.0-47.0) Mean Corpuscular Volume 77 fL (79-100) Mean Corpuscular Hemoglobin 24 pg (25-35) Mean Corpuscular Hemoglobin Concent 31 g/dL (31-37) Red Cell Distribution Width 17.4 % (11.5-14.5) Platelet Count 283 x10^3/uL (140-400) Neutrophils (%) (Auto) 57 % (31-73) Lymphocytes (%) (Auto) 35 % (24-48) Monocytes (%) (Auto) 6 % (0-9) Eosinophils (%) (Auto) 1 % (0-3) Basophils (%) (Auto) 1 % (0-3) Neutrophils # (Auto) 5.3 x10^3/uL (1.8-7.7) Lymphocytes # (Auto) 3.3 x10^3/uL (1.0-4.8) Monocytes # (Auto) 0.6 x10^3/uL (0.0-1.1) Eosinophils # (Auto) 0.1 x10^3/uL (0.0-0.7) Basophils # (Auto) 0.1 x10^3/uL (0.0-0.2) Sodium Level 135 mmol/L (136-145) Potassium Level 4.3 mmol/L (3.5-5.1) Chloride Level 98 mmol/L (98-107) Carbon Dioxide Level 30 mmol/L (21-32) Anion Gap 7 (6-14) Blood Urea Nitrogen 25 mg/dL (7-20) Creatinine 1.0 mg/dL (0.6-1.0) Estimated GFR (Cockcroft-Gault) 53.9 Glucose Level 187 mg/dL (70-99) Calcium Level 9.5 mg/dL (8.5-10.1) Assessment and Plan Assessmemt and Plan Problems Medical Problems: (1) Altered mental status Status: Acute (2) Hyperglycemia Status: Acute (3) Urinary tract infection Status: Acute Comment Review of Relevant I have reviewed the following items jina (where applicable) has been applied. Labs Laboratory Tests Test 11/22/19 11:53 11/22/19 16:25 11/22/19 20:53 11/23/19 04:05 Glucose (Fingerstick) 166 mg/dL (70-99) 194 mg/dL (70-99) 263 mg/dL (70-99) White Blood Count 10.5 x10^3/uL (4.0-11.0) Red Blood Count 4.89 x10^6/uL (3.50-5.40) Hemoglobin 11.9 g/dL (12.0-15.5) Hematocrit 37.1 % (36.0-47.0) Mean Corpuscular Volume 76 fL (79-100) Mean Corpuscular Hemoglobin 24 pg (25-35) Mean Corpuscular Hemoglobin Concent 32 g/dL (31-37) Red Cell Distribution Width 17.1 % (11.5-14.5) Platelet Count 293 x10^3/uL (140-400) Neutrophils (%) (Auto) 75 % (31-73) Lymphocytes (%) (Auto) 22 % (24-48) Monocytes (%) (Auto) 3 % (0-9) Eosinophils (%) (Auto) 0 % (0-3) Basophils (%) (Auto) 0 % (0-3) Neutrophils # (Auto) 7.8 x10^3/uL (1.8-7.7) Lymphocytes # (Auto) 2.3 x10^3/uL (1.0-4.8) Monocytes # (Auto) 0.3 x10^3/uL (0.0-1.1) Eosinophils # (Auto) 0.0 x10^3/uL (0.0-0.7) Basophils # (Auto) 0.0 x10^3/uL (0.0-0.2) Sodium Level 131 mmol/L (136-145) Potassium Level 4.3 mmol/L (3.5-5.1) Chloride Level 96 mmol/L (98-107) Carbon Dioxide Level 28 mmol/L (21-32) Anion Gap 7 (6-14) Blood Urea Nitrogen 19 mg/dL (7-20) Creatinine 1.0 mg/dL (0.6-1.0) Estimated GFR (Cockcroft-Gault) 53.9 Glucose Level 250 mg/dL (70-99) Calcium Level 9.5 mg/dL (8.5-10.1) Test 11/23/19 08:10 11/23/19 10:58 11/23/19 16:48 11/23/19 21:00 Glucose (Fingerstick) 212 mg/dL (70-99) 268 mg/dL (70-99) 224 mg/dL (70-99) 275 mg/dL (70-99) Test 11/24/19 06:05 11/24/19 07:52 White Blood Count 9.3 x10^3/uL (4.0-11.0) Red Blood Count 4.75 x10^6/uL (3.50-5.40) Hemoglobin 11.4 g/dL (12.0-15.5) Hematocrit 36.5 % (36.0-47.0) Mean Corpuscular Volume 77 fL (79-100) Mean Corpuscular Hemoglobin 24 pg (25-35) Mean Corpuscular Hemoglobin Concent 31 g/dL (31-37) Red Cell Distribution Width 17.4 % (11.5-14.5) Platelet Count 283 x10^3/uL (140-400) Neutrophils (%) (Auto) 57 % (31-73) Lymphocytes (%) (Auto) 35 % (24-48) Monocytes (%) (Auto) 6 % (0-9) Eosinophils (%) (Auto) 1 % (0-3) Basophils (%) (Auto) 1 % (0-3) Neutrophils # (Auto) 5.3 x10^3/uL (1.8-7.7) Lymphocytes # (Auto) 3.3 x10^3/uL (1.0-4.8) Monocytes # (Auto) 0.6 x10^3/uL (0.0-1.1) Eosinophils # (Auto) 0.1 x10^3/uL (0.0-0.7) Basophils # (Auto) 0.1 x10^3/uL (0.0-0.2) Sodium Level 135 mmol/L (136-145) Potassium Level 4.3 mmol/L (3.5-5.1) Chloride Level 98 mmol/L (98-107) Carbon Dioxide Level 30 mmol/L (21-32) Anion Gap 7 (6-14) Blood Urea Nitrogen 25 mg/dL (7-20) Creatinine 1.0 mg/dL (0.6-1.0) Estimated GFR (Cockcroft-Gault) 53.9 Glucose Level 187 mg/dL (70-99) Calcium Level 9.5 mg/dL (8.5-10.1) Glucose (Fingerstick) 186 mg/dL (70-99) Laboratory Tests Test 11/23/19 16:48 11/23/19 21:00 11/24/19 06:05 11/24/19 07:52 Glucose (Fingerstick) 224 mg/dL (70-99) 275 mg/dL (70-99) 186 mg/dL (70-99) White Blood Count 9.3 x10^3/uL (4.0-11.0) Red Blood Count 4.75 x10^6/uL (3.50-5.40) Hemoglobin 11.4 g/dL (12.0-15.5) Hematocrit 36.5 % (36.0-47.0) Mean Corpuscular Volume 77 fL (79-100) Mean Corpuscular Hemoglobin 24 pg (25-35) Mean Corpuscular Hemoglobin Concent 31 g/dL (31-37) Red Cell Distribution Width 17.4 % (11.5-14.5) Platelet Count 283 x10^3/uL (140-400) Neutrophils (%) (Auto) 57 % (31-73) Lymphocytes (%) (Auto) 35 % (24-48) Monocytes (%) (Auto) 6 % (0-9) Eosinophils (%) (Auto) 1 % (0-3) Basophils (%) (Auto) 1 % (0-3) Neutrophils # (Auto) 5.3 x10^3/uL (1.8-7.7) Lymphocytes # (Auto) 3.3 x10^3/uL (1.0-4.8) Monocytes # (Auto) 0.6 x10^3/uL (0.0-1.1) Eosinophils # (Auto) 0.1 x10^3/uL (0.0-0.7) Basophils # (Auto) 0.1 x10^3/uL (0.0-0.2) Sodium Level 135 mmol/L (136-145) Potassium Level 4.3 mmol/L (3.5-5.1) Chloride Level 98 mmol/L (98-107) Carbon Dioxide Level 30 mmol/L (21-32) Anion Gap 7 (6-14) Blood Urea Nitrogen 25 mg/dL (7-20) Creatinine 1.0 mg/dL (0.6-1.0) Estimated GFR (Cockcroft-Gault) 53.9 Glucose Level 187 mg/dL (70-99) Calcium Level 9.5 mg/dL (8.5-10.1) Microbiology 11/16/19 Urine Culture - Final, Complete 11/16/19 Urine Culture Result 1 (HARITHA) - Final, Complete Medications Current Medications Sodium Chloride 1,000 ml @ 1,000 mls/hr 1X ONCE IV Last administered on 11/16/19at 14:43; Start 11/16/19 at 14:15; Stop 11/16/19 at 15:14; Status DC Ceftriaxone Sodium (Rocephin) 1 gm 1X ONCE IVP Last administered on 11/16/19at 17:20; Start 11/16/19 at 16:30; Stop 11/16/19 at 16:31; Status DC Acetaminophen (Tylenol) 500 mg PRN Q6HRS PRN PO MILD PAIN 1-3 Last administered on 11/17/19at 15:02; Start 11/16/19 at 17:45 Docusate Sodium (Colace) 100 mg PRN DAILY PRN PO HARD STOOLS; Start 11/16/19 at 17:45 Acetaminophen/ Hydrocodone Bitart (Lortab 7.5/325) 1 tab PRN TID PRN PO MODERATE PAIN Last administered on 11/23/19at 13:35; Start 11/16/19 at 17:45 Nitroglycerin (Nitrostat) 0.4 mg PRN Q5MIN PRN SL CHEST PAIN; Start 11/16/19 at 17:45 Senna/Docusate Sodium (Senna Plus) 1 tab PRN DAILY PRN PO CONSTIPATION Last administered on 11/21/19at 08:13; Start 11/16/19 at 17:45 Carvedilol (Coreg) 12.5 mg BIDWMEALS PO Last administered on 11/24/19 08:40; Start 11/16/19 at 18:00 Insulin Glargine (Lantus Syringe) 20 unit QHS SQ Last administered on 11/23/19 22:16; Start 11/16/19 at 21:00 Levothyroxine Sodium (Synthroid) 200 mcg DAILY06 PO Last administered on 11/24/19 05:42; Start 11/17/19 at 06:00 Ondansetron HCl (Zofran) 4 mg PRN Q8HRS PRN IV NAUSEA/VOMITING; Start 11/16/19 at 18:00; Stop 11/16/19 at 21:39; Status DC Morphine Sulfate (Morphine Sulfate) 2 mg PRN Q2HR PRN IV PAIN; Start 11/16/19 at 18:00; Stop 11/17/19 at 17:59; Status DC Acetaminophen (Tylenol) 650 mg PRN Q4HRS PRN PO FEVER; Start 11/16/19 at 18:00; Stop 11/17/19 at 17:07; Status DC Sodium Chloride 1,000 ml @ 125 mls/hr 1X ONCE IV Last administered on 11/16/19at 19:48; Start 11/16/19 at 18:00; Stop 11/17/19 at 01:59; Status DC Ondansetron HCl (Zofran) 4 mg PRN Q6HRS PRN IV NAUSEA/VOMITING; Start 11/16/19 at 21:45 Ceftriaxone Sodium (Rocephin) 1 gm Q24H IVP Last administered on 11/17/19at 08:55; Start 11/17/19 at 09:30; Stop 11/18/19 at 10:05; Status DC Magnesium Sulfate 100 ml @ 25 mls/hr 1X ONCE IV Last administered on 11/16/19at 22:06; Start 11/16/19 at 22:00; Stop 11/17/19 at 01:59; Status DC Enoxaparin Sodium (Lovenox 30mg Syringe) 30 mg Q24H SQ Last administered on 11/16/19at 22:06; Start 11/16/19 at 22:00; Stop 11/17/19 at 17:12; Status DC Insulin Human Lispro (HumaLOG) 0-7 UNITS TIDACHC SQ Last administered on 11/24/19 08:56; Start 11/17/19 at 07:30 Dextrose (Dextrose 50%-Water Syringe) 12.5 gm PRN Q15MIN PRN IV SEE COMMENTS; Start 11/16/19 at 21:45 Dextrose (Iv Dextrose 5%) 250 ml PRN Q15MIN PRN IV SEE COMMENTS; Start 11/16/19 at 21:45 Valacyclovir HCl (Valtrex) 1,000 mg TID PO Last administered on 11/24/19 08:40; Start 11/17/19 at 14:30 Ascorbic Acid (Vitamin C) 500 mg BID PO Last administered on 11/24/19 08:40; Start 11/17/19 at 21:00 Diclofenac Sodium (Voltaren) 1 loulou BID TP Last administered on 11/24/19 08:41; Start 11/17/19 at 21:00 Enoxaparin Sodium (Lovenox 40mg Syringe) 40 mg Q12H SQ Last administered on 11/24/19 08:40; Start 11/17/19 at 21:00 Lactobacillus Rhamnosus (Culturelle) 1 cap BID PO Last administered on 11/24/19 08:40; Start 11/17/19 at 21:00 Cefdinir (Omnicef) 300 mg BID PO Last administered on 11/24/19 08:40; Start 11/18/19 at 10:15 Cyanocobalamin (Vitamin B-12) 1,000 mcg 1X ONCE IM Last administered on 11/18/19at 12:20; Start 11/18/19 at 11:30; Stop 11/18/19 at 11:33; Status DC Cyanocobalamin (Vitamin B-12) 1,000 mcg DAILY PO Last administered on 11/24/19 08:39; Start 11/19/19 at 09:00 Fluoxetine HCl (PROzac) 20 mg DAILY PO Last administered on 11/24/19 08:40; Start 11/19/19 at 14:15 Lidocaine (Lidoderm) 1 patch HS TD Last administered on 11/23/19 22:20; Start 11/19/19 at 21:00 Miscellaneous (Lidoderm Patch Removal) 1 ea DAILY MC Last administered on 11/24/19 09:00; Start 11/20/19 at 09:00 Ondansetron HCl (Zofran Odt) 4 mg PRN Q6HRS PRN PO NAUSEA/VOMITING Last administered on 11/20/19at 18:45; Start 11/20/19 at 18:30 Methylprednisolone Acetate (DEPO-Medrol 40MG VIAL) 40 mg 1X ONCE IM ; Start 11/21/19 at 09:00; Stop 11/21/19 at 09:01; Status DC Bupivacaine HCl (Sensorcaine-Mpf 0.25%) 10 ml 1X ONCE IJ ; Start 11/21/19 at 09:00; Stop 11/21/19 at 09:01; Status DC Methylprednisolone Acetate (DEPO-Medrol 40MG VIAL) 40 mg 1X ONCE IM ; Start 11/21/19 at 09:00; Stop 11/21/19 at 09:01; Status DC Oxycodone/ Acetaminophen (Percocet 10/325) 1 tab PRN Q6HRS PRN PO SEVERE PAIN Last administered on 11/24/19at 09:02; Start 11/22/19 at 11:45 Oxycodone/ Acetaminophen (Percocet 10/325) 1 tab 1X STAT PO Last administered on 11/22/19at 11:54; Start 11/22/19 at 11:44; Stop 11/22/19 at 11:49; Status DC Methylprednisolone Acetate (DEPO-Medrol 40MG VIAL) 40 mg 1X ONCE IM Last administered on 11/22/19at 13:00; Start 11/22/19 at 13:00; Stop 11/22/19 at 13:05; Status DC Bupivacaine HCl (Sensorcaine-Mpf 0.25%) 10 ml 1X ONCE IJ Last administered on 11/22/19at 13:00; Start 11/22/19 at 13:00; Stop 11/22/19 at 13:05; Status DC Active Scripts Active Novolog Flexpen (Insulin Aspart) 100 Unit/1 Ml Insuln.pen 100 Unit SQ TID PRN PRN Reported Fluoxetine Hcl 20 Mg Capsule 20 Mg PO DAILY 90 Days Lantus Solostar (Insulin Glargine,Hum.rec.anlog) 100 Unit/1 Ml Insuln.pen 20 Unit SQ QHS Senokot-S Tablet (Sennosides/Docusate Sodium) 1 Each Tablet 1 Each PO PRN DAILY PRN Benadryl (Diphenhydramine Hcl) 25 Mg Capsule 25 Mg PO PRN QHS PRN Acetaminophen 500 Mg Tablet 500 Mg PO PRN Q6HRS PRN Spironolactone 25 Mg Tablet 25 Mg PO DAILY Colace (Docusate Sodium) 100 Mg Capsule 100 Mg PO PRN DAILY PRN Coreg (Carvedilol) 25 Mg Tablet 12.5 Mg PO BIDWMEALS Nitrostat (Nitroglycerin) 0.4 Mg Tab.subl 0.4 Mg SL PRN Q5MIN PRN Hydrocodone-Apap 7.5-325 (Hydrocodone Bit/Acetaminophen) 1 Tab Tablet 1 Tab PO PRN TID PRN Synthroid (Levothyroxine Sodium) 200 Mcg Tablet 200 Mcg PO DAILY Vitals/I & O Vital Sign - Last 24 Hours 11/23/19 11/23/19 11/23/19 11/23/19 13:35 14:35 15:00 17:11 Temp 97.7 97.7 Pulse 66 66 Resp 18 18 18 B/P (MAP) 166/65 (98) 166/65 Pulse Ox 97 O2 Delivery Room Air Room Air 11/23/19 11/23/19 11/23/19 11/23/19 19:00 20:25 22:31 23:00 Temp 98.1 97.8 98.1 97.8 Pulse 61 53 Resp 18 16 18 B/P (MAP) 125/54 (77) 157/62 (93) Pulse Ox 95 94 O2 Delivery Room Air Room Air Room Air 11/23/19 11/24/19 11/24/19 11/24/19 23:31 03:00 07:00 08:40 Temp 97.9 97.8 97.9 97.8 Pulse 54 63 63 Resp 14 18 16 B/P (MAP) 130/49 (76) 176/74 (108) 176/74 Pulse Ox 95 96 O2 Delivery Nasal Cannula Room Air Room Air 11/24/19 11/24/19 09:02 11:00 Temp 98.0 98.0 Pulse 61 Resp 18 14 B/P (MAP) 161/67 (98) Pulse Ox 96 94 O2 Delivery Room Air Room Air Intake and Output 11/23/19 11/23/19 11/24/19 15:00 23:00 07:00 Intake Total 210 ml 310 ml Output Total 1400 ml 2300 ml Balance 210 ml -1400 ml -1990 ml JAIRO CHRISTENSEN MD Nov 24, 2019 11:34
--- NOTE | 2019-11-24 12:09 | PDOC ---
PROGRESS NOTES Subjective Subjective She feels better. Objective Objective Vital Signs Date Time Temp Pulse Resp B/P (MAP) Pulse Ox O2 Delivery O2 Flow Rate FiO2 11/24/19 11:00 98.0 61 14 161/67 (98) 94 Room Air 98.0 Intake and Output 11/24/19 07:00 Intake Total 520 ml Output Total 3700 ml Balance -3180 ml Intake Oral 520 ml Output Urine Total 3700 ml # Voids 2 # Bowel Movements 1 Physical Exam Physical Exam She is alert,supine in bed and she is getting up with help and she feels less pain overall in her knees,low back,hip and shoulder area. Assessment Assessment Problems Medical Problems: (1) Altered mental status Status: Acute (2) Hyperglycemia Status: Acute (3) Urinary tract infection Status: Acute Plan Plan of Care To get her up as tolerated and to SNF when medically stable. Comment Review of Relevant I have reviewed the following items jina (where applicable) has been applied. Labs Laboratory Tests Test 11/22/19 16:25 11/22/19 20:53 11/23/19 04:05 11/23/19 08:10 Glucose (Fingerstick) 194 mg/dL (70-99) 263 mg/dL (70-99) 212 mg/dL (70-99) White Blood Count 10.5 x10^3/uL (4.0-11.0) Red Blood Count 4.89 x10^6/uL (3.50-5.40) Hemoglobin 11.9 g/dL (12.0-15.5) Hematocrit 37.1 % (36.0-47.0) Mean Corpuscular Volume 76 fL (79-100) Mean Corpuscular Hemoglobin 24 pg (25-35) Mean Corpuscular Hemoglobin Concent 32 g/dL (31-37) Red Cell Distribution Width 17.1 % (11.5-14.5) Platelet Count 293 x10^3/uL (140-400) Neutrophils (%) (Auto) 75 % (31-73) Lymphocytes (%) (Auto) 22 % (24-48) Monocytes (%) (Auto) 3 % (0-9) Eosinophils (%) (Auto) 0 % (0-3) Basophils (%) (Auto) 0 % (0-3) Neutrophils # (Auto) 7.8 x10^3/uL (1.8-7.7) Lymphocytes # (Auto) 2.3 x10^3/uL (1.0-4.8) Monocytes # (Auto) 0.3 x10^3/uL (0.0-1.1) Eosinophils # (Auto) 0.0 x10^3/uL (0.0-0.7) Basophils # (Auto) 0.0 x10^3/uL (0.0-0.2) Sodium Level 131 mmol/L (136-145) Potassium Level 4.3 mmol/L (3.5-5.1) Chloride Level 96 mmol/L (98-107) Carbon Dioxide Level 28 mmol/L (21-32) Anion Gap 7 (6-14) Blood Urea Nitrogen 19 mg/dL (7-20) Creatinine 1.0 mg/dL (0.6-1.0) Estimated GFR (Cockcroft-Gault) 53.9 Glucose Level 250 mg/dL (70-99) Calcium Level 9.5 mg/dL (8.5-10.1) Test 11/23/19 10:58 11/23/19 16:48 11/23/19 21:00 11/24/19 06:05 Glucose (Fingerstick) 268 mg/dL (70-99) 224 mg/dL (70-99) 275 mg/dL (70-99) White Blood Count 9.3 x10^3/uL (4.0-11.0) Red Blood Count 4.75 x10^6/uL (3.50-5.40) Hemoglobin 11.4 g/dL (12.0-15.5) Hematocrit 36.5 % (36.0-47.0) Mean Corpuscular Volume 77 fL (79-100) Mean Corpuscular Hemoglobin 24 pg (25-35) Mean Corpuscular Hemoglobin Concent 31 g/dL (31-37) Red Cell Distribution Width 17.4 % (11.5-14.5) Platelet Count 283 x10^3/uL (140-400) Neutrophils (%) (Auto) 57 % (31-73) Lymphocytes (%) (Auto) 35 % (24-48) Monocytes (%) (Auto) 6 % (0-9) Eosinophils (%) (Auto) 1 % (0-3) Basophils (%) (Auto) 1 % (0-3) Neutrophils # (Auto) 5.3 x10^3/uL (1.8-7.7) Lymphocytes # (Auto) 3.3 x10^3/uL (1.0-4.8) Monocytes # (Auto) 0.6 x10^3/uL (0.0-1.1) Eosinophils # (Auto) 0.1 x10^3/uL (0.0-0.7) Basophils # (Auto) 0.1 x10^3/uL (0.0-0.2) Sodium Level 135 mmol/L (136-145) Potassium Level 4.3 mmol/L (3.5-5.1) Chloride Level 98 mmol/L (98-107) Carbon Dioxide Level 30 mmol/L (21-32) Anion Gap 7 (6-14) Blood Urea Nitrogen 25 mg/dL (7-20) Creatinine 1.0 mg/dL (0.6-1.0) Estimated GFR (Cockcroft-Gault) 53.9 Glucose Level 187 mg/dL (70-99) Calcium Level 9.5 mg/dL (8.5-10.1) Test 11/24/19 07:52 11/24/19 11:55 Glucose (Fingerstick) 186 mg/dL (70-99) 250 mg/dL (70-99) Laboratory Tests Test 11/23/19 16:48 11/23/19 21:00 11/24/19 06:05 11/24/19 07:52 Glucose (Fingerstick) 224 mg/dL (70-99) 275 mg/dL (70-99) 186 mg/dL (70-99) White Blood Count 9.3 x10^3/uL (4.0-11.0) Red Blood Count 4.75 x10^6/uL (3.50-5.40) Hemoglobin 11.4 g/dL (12.0-15.5) Hematocrit 36.5 % (36.0-47.0) Mean Corpuscular Volume 77 fL (79-100) Mean Corpuscular Hemoglobin 24 pg (25-35) Mean Corpuscular Hemoglobin Concent 31 g/dL (31-37) Red Cell Distribution Width 17.4 % (11.5-14.5) Platelet Count 283 x10^3/uL (140-400) Neutrophils (%) (Auto) 57 % (31-73) Lymphocytes (%) (Auto) 35 % (24-48) Monocytes (%) (Auto) 6 % (0-9) Eosinophils (%) (Auto) 1 % (0-3) Basophils (%) (Auto) 1 % (0-3) Neutrophils # (Auto) 5.3 x10^3/uL (1.8-7.7) Lymphocytes # (Auto) 3.3 x10^3/uL (1.0-4.8) Monocytes # (Auto) 0.6 x10^3/uL (0.0-1.1) Eosinophils # (Auto) 0.1 x10^3/uL (0.0-0.7) Basophils # (Auto) 0.1 x10^3/uL (0.0-0.2) Sodium Level 135 mmol/L (136-145) Potassium Level 4.3 mmol/L (3.5-5.1) Chloride Level 98 mmol/L (98-107) Carbon Dioxide Level 30 mmol/L (21-32) Anion Gap 7 (6-14) Blood Urea Nitrogen 25 mg/dL (7-20) Creatinine 1.0 mg/dL (0.6-1.0) Estimated GFR (Cockcroft-Gault) 53.9 Glucose Level 187 mg/dL (70-99) Calcium Level 9.5 mg/dL (8.5-10.1) Test 11/24/19 11:55 Glucose (Fingerstick) 250 mg/dL (70-99) Microbiology 11/16/19 Urine Culture - Final, Complete 11/16/19 Urine Culture Result 1 (HARITHA) - Final, Complete Medications Current Medications Sodium Chloride 1,000 ml @ 1,000 mls/hr 1X ONCE IV Last administered on 11/16/19at 14:43; Start 11/16/19 at 14:15; Stop 11/16/19 at 15:14; Status DC Ceftriaxone Sodium (Rocephin) 1 gm 1X ONCE IVP Last administered on 11/16/19at 17:20; Start 11/16/19 at 16:30; Stop 11/16/19 at 16:31; Status DC Acetaminophen (Tylenol) 500 mg PRN Q6HRS PRN PO MILD PAIN 1-3 Last administered on 11/17/19at 15:02; Start 11/16/19 at 17:45 Docusate Sodium (Colace) 100 mg PRN DAILY PRN PO HARD STOOLS; Start 11/16/19 at 17:45 Acetaminophen/ Hydrocodone Bitart (Lortab 7.5/325) 1 tab PRN TID PRN PO MODERATE PAIN Last administered on 11/23/19 13:35; Start 11/16/19 at 17:45 Nitroglycerin (Nitrostat) 0.4 mg PRN Q5MIN PRN SL CHEST PAIN; Start 11/16/19 at 17:45 Senna/Docusate Sodium (Senna Plus) 1 tab PRN DAILY PRN PO CONSTIPATION Last administered on 11/21/19 08:13; Start 11/16/19 at 17:45 Carvedilol (Coreg) 12.5 mg BIDWMEALS PO Last administered on 11/24/19 08:40; Start 11/16/19 at 18:00 Insulin Glargine (Lantus Syringe) 20 unit QHS SQ Last administered on 11/23/19 22:16; Start 11/16/19 at 21:00 Levothyroxine Sodium (Synthroid) 200 mcg DAILY06 PO Last administered on 11/24/19 05:42; Start 11/17/19 at 06:00 Ondansetron HCl (Zofran) 4 mg PRN Q8HRS PRN IV NAUSEA/VOMITING; Start 11/16/19 at 18:00; Stop 11/16/19 at 21:39; Status DC Morphine Sulfate (Morphine Sulfate) 2 mg PRN Q2HR PRN IV PAIN; Start 11/16/19 at 18:00; Stop 11/17/19 at 17:59; Status DC Acetaminophen (Tylenol) 650 mg PRN Q4HRS PRN PO FEVER; Start 11/16/19 at 18:00; Stop 11/17/19 at 17:07; Status DC Sodium Chloride 1,000 ml @ 125 mls/hr 1X ONCE IV Last administered on 11/16/19at 19:48; Start 11/16/19 at 18:00; Stop 11/17/19 at 01:59; Status DC Ondansetron HCl (Zofran) 4 mg PRN Q6HRS PRN IV NAUSEA/VOMITING; Start 11/16/19 at 21:45 Ceftriaxone Sodium (Rocephin) 1 gm Q24H IVP Last administered on 11/17/19at 08:55; Start 11/17/19 at 09:30; Stop 11/18/19 at 10:05; Status DC Magnesium Sulfate 100 ml @ 25 mls/hr 1X ONCE IV Last administered on 11/16/19at 22:06; Start 11/16/19 at 22:00; Stop 11/17/19 at 01:59; Status DC Enoxaparin Sodium (Lovenox 30mg Syringe) 30 mg Q24H SQ Last administered on 11/16/19at 22:06; Start 11/16/19 at 22:00; Stop 11/17/19 at 17:12; Status DC Insulin Human Lispro (HumaLOG) 0-7 UNITS TIDACHC SQ Last administered on 11/24/19 08:56; Start 11/17/19 at 07:30 Dextrose (Dextrose 50%-Water Syringe) 12.5 gm PRN Q15MIN PRN IV SEE COMMENTS; Start 11/16/19 at 21:45 Dextrose (Iv Dextrose 5%) 250 ml PRN Q15MIN PRN IV SEE COMMENTS; Start 11/16/19 at 21:45 Valacyclovir HCl (Valtrex) 1,000 mg TID PO Last administered on 11/24/19 08:40; Start 11/17/19 at 14:30 Ascorbic Acid (Vitamin C) 500 mg BID PO Last administered on 11/24/19 08:40; Start 11/17/19 at 21:00 Diclofenac Sodium (Voltaren) 1 loulou BID TP Last administered on 11/24/19 08:41; Start 11/17/19 at 21:00 Enoxaparin Sodium (Lovenox 40mg Syringe) 40 mg Q12H SQ Last administered on 11/24/19 08:40; Start 11/17/19 at 21:00 Lactobacillus Rhamnosus (Culturelle) 1 cap BID PO Last administered on 11/24/19 08:40; Start 11/17/19 at 21:00 Cefdinir (Omnicef) 300 mg BID PO Last administered on 11/24/19 08:40; Start 11/18/19 at 10:15 Cyanocobalamin (Vitamin B-12) 1,000 mcg 1X ONCE IM Last administered on 11/18/19at 12:20; Start 11/18/19 at 11:30; Stop 11/18/19 at 11:33; Status DC Cyanocobalamin (Vitamin B-12) 1,000 mcg DAILY PO Last administered on 11/24/19at 08:39; Start 11/19/19 at 09:00 Fluoxetine HCl (PROzac) 20 mg DAILY PO Last administered on 11/24/19at 08:40; Start 11/19/19 at 14:15 Lidocaine (Lidoderm) 1 patch HS TD Last administered on 11/23/19at 22:20; Start 11/19/19 at 21:00 Miscellaneous (Lidoderm Patch Removal) 1 ea DAILY MC Last administered on 11/24/19 09:00; Start 11/20/19 at 09:00 Ondansetron HCl (Zofran Odt) 4 mg PRN Q6HRS PRN PO NAUSEA/VOMITING Last administered on 11/20/19at 18:45; Start 11/20/19 at 18:30 Methylprednisolone Acetate (DEPO-Medrol 40MG VIAL) 40 mg 1X ONCE IM ; Start 11/21/19 at 09:00; Stop 11/21/19 at 09:01; Status DC Bupivacaine HCl (Sensorcaine-Mpf 0.25%) 10 ml 1X ONCE IJ ; Start 11/21/19 at 09:00; Stop 11/21/19 at 09:01; Status DC Methylprednisolone Acetate (DEPO-Medrol 40MG VIAL) 40 mg 1X ONCE IM ; Start 11/21/19 at 09:00; Stop 11/21/19 at 09:01; Status DC Oxycodone/ Acetaminophen (Percocet 10/325) 1 tab PRN Q6HRS PRN PO SEVERE PAIN Last administered on 11/24/19 09:02; Start 11/22/19 at 11:45 Oxycodone/ Acetaminophen (Percocet 10/325) 1 tab 1X STAT PO Last administered on 11/22/19at 11:54; Start 11/22/19 at 11:44; Stop 11/22/19 at 11:49; Status DC Methylprednisolone Acetate (DEPO-Medrol 40MG VIAL) 40 mg 1X ONCE IM Last administered on 11/22/19at 13:00; Start 11/22/19 at 13:00; Stop 11/22/19 at 13:05; Status DC Bupivacaine HCl (Sensorcaine-Mpf 0.25%) 10 ml 1X ONCE IJ Last administered on 11/22/19at 13:00; Start 11/22/19 at 13:00; Stop 11/22/19 at 13:05; Status DC Active Scripts Active Novolog Flexpen (Insulin Aspart) 100 Unit/1 Ml Insuln.pen 100 Unit SQ TID PRN PRN Reported Fluoxetine Hcl 20 Mg Capsule 20 Mg PO DAILY 90 Days Lantus Solostar (Insulin Glargine,Hum.rec.anlog) 100 Unit/1 Ml Insuln.pen 20 Unit SQ QHS Senokot-S Tablet (Sennosides/Docusate Sodium) 1 Each Tablet 1 Each PO PRN DAILY PRN Benadryl (Diphenhydramine Hcl) 25 Mg Capsule 25 Mg PO PRN QHS PRN Acetaminophen 500 Mg Tablet 500 Mg PO PRN Q6HRS PRN Spironolactone 25 Mg Tablet 25 Mg PO DAILY Colace (Docusate Sodium) 100 Mg Capsule 100 Mg PO PRN DAILY PRN Coreg (Carvedilol) 25 Mg Tablet 12.5 Mg PO BIDWMEALS Nitrostat (Nitroglycerin) 0.4 Mg Tab.subl 0.4 Mg SL PRN Q5MIN PRN Hydrocodone-Apap 7.5-325 (Hydrocodone Bit/Acetaminophen) 1 Tab Tablet 1 Tab PO PRN TID PRN Synthroid (Levothyroxine Sodium) 200 Mcg Tablet 200 Mcg PO DAILY Vitals/I & O Vital Sign - Last 24 Hours 11/23/19 11/23/19 11/23/19 11/23/19 13:35 14:35 15:00 17:11 Temp 97.7 97.7 Pulse 66 66 Resp 18 18 18 B/P (MAP) 166/65 (98) 166/65 Pulse Ox 97 O2 Delivery Room Air Room Air 11/23/19 11/23/19 11/23/19 11/23/19 19:00 20:25 22:31 23:00 Temp 98.1 97.8 98.1 97.8 Pulse 61 53 Resp 18 16 18 B/P (MAP) 125/54 (77) 157/62 (93) Pulse Ox 95 94 O2 Delivery Room Air Room Air Room Air 11/23/19 11/24/19 11/24/19 11/24/19 23:31 03:00 07:00 08:40 Temp 97.9 97.8 97.9 97.8 Pulse 54 63 63 Resp 14 18 16 B/P (MAP) 130/49 (76) 176/74 (108) 176/74 Pulse Ox 95 96 O2 Delivery Nasal Cannula Room Air Room Air 11/24/19 11/24/19 09:02 11:00 Temp 98.0 98.0 Pulse 61 Resp 18 14 B/P (MAP) 161/67 (98) Pulse Ox 96 94 O2 Delivery Room Air Room Air Intake and Output 11/23/19 11/23/19 11/24/19 15:00 23:00 07:00 Intake Total 210 ml 310 ml Output Total 1400 ml 2300 ml Balance 210 ml -1400 ml -1990 ml PAWAN FLETCHER MD Nov 24, 2019 12:09
--- NOTE | 2019-11-24 12:30 | NUR ---
SANGITA following, discussed with RN, pt accepted at [facility] pending insurance auth. Pt MUST work with PT today for insurance. SANGITA notified RN.
[2019-11-24 15:00] VITALS: BP 135/51
[2019-11-24 19:00] VITALS: BP 98/56
[2019-11-24] MEDS: LIDOCAINE (700MG/PATCH) PATCH. TD SCH (22:07)
[2019-11-24] MEDS: INSULIN GLARGINE SYRINGE. SQ SCH (22:17)
[2019-11-24 23:00] VITALS: BP 158/61
[2019-11-25 03:00] VITALS: BP 165/62
[2019-11-25 04:17] LABS: BASO # 0.1 x10^3/uL (0.0-0.2); BASO % 1 % (0-3); EOS # 0.2 x10^3/uL (0.0-0.7); EOS % 2 % (0-3); HEMOGLOBIN 10.9 g/dL (12.0-15.5); LYMPH # 3.8 x10^3/uL (1.0-4.8); LYMPH % 33 % (24-48); MEAN CORPUSCULAR HEMOGLOBIN 24 pg (25-35); MEAN CORPUSCULAR HGB CONC 31 g/dL (31-37); MEAN CORPUSCULAR VOLUME 77 fL (79-100); MONO # 0.6 x10^3/uL (0.0-1.1); MONO % 6 % (0-9); NEUT # 6.7 x10^3/uL (1.8-7.7); NEUT % 59 % (31-73); PLATELET COUNT 274 x10^3/uL (140-400); RED BLOOD COUNT 4.56 x10^6/uL (3.50-5.40); RED CELL DISTRIBUTION WIDTH 17.1 % (11.5-14.5); WHITE BLOOD COUNT 11.4 x10^3/uL (4.0-11.0)
[2019-11-25 04:28] LABS: CALCIUM 9.6 mg/dL (8.5-10.1); CREATININE 1.1 mg/dL (0.6-1.0); GFR 48.3; POTASSIUM 4.2 mmol/L (3.5-5.1)
[2019-11-25] MEDS: LEVOTHYROXINE 100 MCG TABLET PO SCH (06:30)
[2019-11-25 07:37] VITALS: BP 172/69
[2019-11-25] MEDS: CYANOCOBALAMIN (VITAMIN B-12) 1,000 MCG TABLET. PO SCH (08:29)
[2019-11-25] MEDS: FLUoxetine HCL 20 MG CAPSULE PO SCH (08:30)
[2019-11-25] MEDS: CEFDINIR 300 MG CAPSULE PO SCH ×2 (08:30→20:45)
[2019-11-25] MEDS: CARVEDILOL 12.5 MG TABLET. PO SCH ×2 (08:30→17:14)
[2019-11-25] MEDS: LACTOBACILLUS RHAMNOSUS GG 1 CAPSULE. PO SCH ×2 (08:30→20:45)
[2019-11-25] MEDS: valACYclovir 500 MG TABLET. PO SCH ×3 (08:30→20:45)
[2019-11-25] MEDS: ENOXAPARIN 40 MG/0.4 ML SYRINGE. SQ SCH ×2 (08:31→20:45)
[2019-11-25] MEDS: oxyCODONE/APAP 10/325 1 TAB TABLET PO PRN ×2 (08:31→17:13)
[2019-11-25] MEDS: INSULIN LISPRO 300 UNITS/3 ML VIAL. SQ SCH ×4 (08:37→20:48)
[2019-11-25] MEDS: PATCH REMOVAL. MC SCH (08:37)
[2019-11-25] MEDS: ASCORBIC ACID 500 MG TABLET PO SCH ×2 (08:38→20:45)
[2019-11-25] MEDS: DICLOFENAC SODIUM 1% TOPICAL GEL 100GM TUBE. TP SCH ×2 (09:00→20:46)
--- NOTE | 2019-11-25 11:12 | PDOC ---
PROGRESS NOTES Subjective Subjective No new complaints. Objective Objective Vital Signs Date Time Temp Pulse Resp B/P (MAP) Pulse Ox O2 Delivery O2 Flow Rate FiO2 11/25/19 09:31 Room Air 11/25/19 08:30 60 165/62 11/25/19 07:37 98.2 18 100 98.2 Intake and Output 11/25/19 07:00 Intake Total 1180 ml Balance 1180 ml Intake Oral 1180 ml # Voids 10 # Bowel Movements 1 Physical Exam Physical Exam She is supine in bed and comfortable and she got up with physical therapy yesterday and made a few steps with roller walker and she is afraid of walking as she feels her legs might give away. Assessment Assessment Problems Medical Problems: (1) Altered mental status Status: Acute (2) Hyperglycemia Status: Acute (3) Urinary tract infection Status: Acute Plan Plan of Care She needs mri scan of her knees to rule out associated degenerative meniscal tear but I not not ordering it now with our hospital restrictions about getting mri scans done. To SNF when medically stable. Comment Review of Relevant I have reviewed the following items jina (where applicable) has been applied. Labs Laboratory Tests Test 11/23/19 16:48 11/23/19 21:00 11/24/19 06:05 11/24/19 07:52 Glucose (Fingerstick) 224 mg/dL (70-99) 275 mg/dL (70-99) 186 mg/dL (70-99) White Blood Count 9.3 x10^3/uL (4.0-11.0) Red Blood Count 4.75 x10^6/uL (3.50-5.40) Hemoglobin 11.4 g/dL (12.0-15.5) Hematocrit 36.5 % (36.0-47.0) Mean Corpuscular Volume 77 fL (79-100) Mean Corpuscular Hemoglobin 24 pg (25-35) Mean Corpuscular Hemoglobin Concent 31 g/dL (31-37) Red Cell Distribution Width 17.4 % (11.5-14.5) Platelet Count 283 x10^3/uL (140-400) Neutrophils (%) (Auto) 57 % (31-73) Lymphocytes (%) (Auto) 35 % (24-48) Monocytes (%) (Auto) 6 % (0-9) Eosinophils (%) (Auto) 1 % (0-3) Basophils (%) (Auto) 1 % (0-3) Neutrophils # (Auto) 5.3 x10^3/uL (1.8-7.7) Lymphocytes # (Auto) 3.3 x10^3/uL (1.0-4.8) Monocytes # (Auto) 0.6 x10^3/uL (0.0-1.1) Eosinophils # (Auto) 0.1 x10^3/uL (0.0-0.7) Basophils # (Auto) 0.1 x10^3/uL (0.0-0.2) Sodium Level 135 mmol/L (136-145) Potassium Level 4.3 mmol/L (3.5-5.1) Chloride Level 98 mmol/L (98-107) Carbon Dioxide Level 30 mmol/L (21-32) Anion Gap 7 (6-14) Blood Urea Nitrogen 25 mg/dL (7-20) Creatinine 1.0 mg/dL (0.6-1.0) Estimated GFR (Cockcroft-Gault) 53.9 Glucose Level 187 mg/dL (70-99) Calcium Level 9.5 mg/dL (8.5-10.1) Test 11/24/19 11:55 11/24/19 16:58 11/24/19 20:50 11/25/19 03:50 Glucose (Fingerstick) 250 mg/dL (70-99) 255 mg/dL (70-99) 248 mg/dL (70-99) White Blood Count 11.4 x10^3/uL (4.0-11.0) Red Blood Count 4.56 x10^6/uL (3.50-5.40) Hemoglobin 10.9 g/dL (12.0-15.5) Hematocrit 35.0 % (36.0-47.0) Mean Corpuscular Volume 77 fL (79-100) Mean Corpuscular Hemoglobin 24 pg (25-35) Mean Corpuscular Hemoglobin Concent 31 g/dL (31-37) Red Cell Distribution Width 17.1 % (11.5-14.5) Platelet Count 274 x10^3/uL (140-400) Neutrophils (%) (Auto) 59 % (31-73) Lymphocytes (%) (Auto) 33 % (24-48) Monocytes (%) (Auto) 6 % (0-9) Eosinophils (%) (Auto) 2 % (0-3) Basophils (%) (Auto) 1 % (0-3) Neutrophils # (Auto) 6.7 x10^3/uL (1.8-7.7) Lymphocytes # (Auto) 3.8 x10^3/uL (1.0-4.8) Monocytes # (Auto) 0.6 x10^3/uL (0.0-1.1) Eosinophils # (Auto) 0.2 x10^3/uL (0.0-0.7) Basophils # (Auto) 0.1 x10^3/uL (0.0-0.2) Sodium Level 136 mmol/L (136-145) Potassium Level 4.2 mmol/L (3.5-5.1) Chloride Level 99 mmol/L (98-107) Carbon Dioxide Level 31 mmol/L (21-32) Anion Gap 6 (6-14) Blood Urea Nitrogen 30 mg/dL (7-20) Creatinine 1.1 mg/dL (0.6-1.0) Estimated GFR (Cockcroft-Gault) 48.3 Glucose Level 205 mg/dL (70-99) Calcium Level 9.6 mg/dL (8.5-10.1) Test 11/25/19 07:34 Glucose (Fingerstick) 169 mg/dL (70-99) Laboratory Tests Test 11/24/19 11:55 11/24/19 16:58 11/24/19 20:50 11/25/19 03:50 Glucose (Fingerstick) 250 mg/dL (70-99) 255 mg/dL (70-99) 248 mg/dL (70-99) White Blood Count 11.4 x10^3/uL (4.0-11.0) Red Blood Count 4.56 x10^6/uL (3.50-5.40) Hemoglobin 10.9 g/dL (12.0-15.5) Hematocrit 35.0 % (36.0-47.0) Mean Corpuscular Volume 77 fL (79-100) Mean Corpuscular Hemoglobin 24 pg (25-35) Mean Corpuscular Hemoglobin Concent 31 g/dL (31-37) Red Cell Distribution Width 17.1 % (11.5-14.5) Platelet Count 274 x10^3/uL (140-400) Neutrophils (%) (Auto) 59 % (31-73) Lymphocytes (%) (Auto) 33 % (24-48) Monocytes (%) (Auto) 6 % (0-9) Eosinophils (%) (Auto) 2 % (0-3) Basophils (%) (Auto) 1 % (0-3) Neutrophils # (Auto) 6.7 x10^3/uL (1.8-7.7) Lymphocytes # (Auto) 3.8 x10^3/uL (1.0-4.8) Monocytes # (Auto) 0.6 x10^3/uL (0.0-1.1) Eosinophils # (Auto) 0.2 x10^3/uL (0.0-0.7) Basophils # (Auto) 0.1 x10^3/uL (0.0-0.2) Sodium Level 136 mmol/L (136-145) Potassium Level 4.2 mmol/L (3.5-5.1) Chloride Level 99 mmol/L (98-107) Carbon Dioxide Level 31 mmol/L (21-32) Anion Gap 6 (6-14) Blood Urea Nitrogen 30 mg/dL (7-20) Creatinine 1.1 mg/dL (0.6-1.0) Estimated GFR (Cockcroft-Gault) 48.3 Glucose Level 205 mg/dL (70-99) Calcium Level 9.6 mg/dL (8.5-10.1) Test 11/25/19 07:34 Glucose (Fingerstick) 169 mg/dL (70-99) Microbiology 11/16/19 Urine Culture - Final, Complete 11/16/19 Urine Culture Result 1 (HARITHA) - Final, Complete Medications Current Medications Sodium Chloride 1,000 ml @ 1,000 mls/hr 1X ONCE IV Last administered on 11/16/19at 14:43; Start 11/16/19 at 14:15; Stop 11/16/19 at 15:14; Status DC Ceftriaxone Sodium (Rocephin) 1 gm 1X ONCE IVP Last administered on 11/16/19at 17:20; Start 11/16/19 at 16:30; Stop 11/16/19 at 16:31; Status DC Acetaminophen (Tylenol) 500 mg PRN Q6HRS PRN PO MILD PAIN 1-3 Last administered on 11/17/19 15:02; Start 11/16/19 at 17:45 Docusate Sodium (Colace) 100 mg PRN DAILY PRN PO HARD STOOLS; Start 11/16/19 at 17:45 Acetaminophen/ Hydrocodone Bitart (Lortab 7.5/325) 1 tab PRN TID PRN PO MODERATE PAIN Last administered on 11/23/19 13:35; Start 11/16/19 at 17:45 Nitroglycerin (Nitrostat) 0.4 mg PRN Q5MIN PRN SL CHEST PAIN; Start 11/16/19 at 17:45 Senna/Docusate Sodium (Senna Plus) 1 tab PRN DAILY PRN PO CONSTIPATION Last administered on 11/21/19 08:13; Start 11/16/19 at 17:45 Carvedilol (Coreg) 12.5 mg BIDWMEALS PO Last administered on 11/25/19 08:30; Start 11/16/19 at 18:00 Insulin Glargine (Lantus Syringe) 20 unit QHS SQ Last administered on 11/24/19 22:17; Start 11/16/19 at 21:00 Levothyroxine Sodium (Synthroid) 200 mcg DAILY06 PO Last administered on 11/25/19 06:30; Start 11/17/19 at 06:00 Ondansetron HCl (Zofran) 4 mg PRN Q8HRS PRN IV NAUSEA/VOMITING; Start 11/16/19 at 18:00; Stop 11/16/19 at 21:39; Status DC Morphine Sulfate (Morphine Sulfate) 2 mg PRN Q2HR PRN IV PAIN; Start 11/16/19 at 18:00; Stop 11/17/19 at 17:59; Status DC Acetaminophen (Tylenol) 650 mg PRN Q4HRS PRN PO FEVER; Start 11/16/19 at 18:00; Stop 11/17/19 at 17:07; Status DC Sodium Chloride 1,000 ml @ 125 mls/hr 1X ONCE IV Last administered on 11/16/19at 19:48; Start 11/16/19 at 18:00; Stop 11/17/19 at 01:59; Status DC Ondansetron HCl (Zofran) 4 mg PRN Q6HRS PRN IV NAUSEA/VOMITING; Start 11/16/19 at 21:45 Ceftriaxone Sodium (Rocephin) 1 gm Q24H IVP Last administered on 11/17/19at 08:55; Start 11/17/19 at 09:30; Stop 11/18/19 at 10:05; Status DC Magnesium Sulfate 100 ml @ 25 mls/hr 1X ONCE IV Last administered on 11/16/19at 22:06; Start 11/16/19 at 22:00; Stop 11/17/19 at 01:59; Status DC Enoxaparin Sodium (Lovenox 30mg Syringe) 30 mg Q24H SQ Last administered on 11/16/19at 22:06; Start 11/16/19 at 22:00; Stop 11/17/19 at 17:12; Status DC Insulin Human Lispro (HumaLOG) 0-7 UNITS TIDACHC SQ Last administered on 11/25/19 08:37; Start 11/17/19 at 07:30 Dextrose (Dextrose 50%-Water Syringe) 12.5 gm PRN Q15MIN PRN IV SEE COMMENTS; Start 11/16/19 at 21:45 Dextrose (Iv Dextrose 5%) 250 ml PRN Q15MIN PRN IV SEE COMMENTS; Start 11/16/19 at 21:45 Valacyclovir HCl (Valtrex) 1,000 mg TID PO Last administered on 11/25/19 08:30; Start 11/17/19 at 14:30 Ascorbic Acid (Vitamin C) 500 mg BID PO Last administered on 11/25/19 08:38; Start 11/17/19 at 21:00 Diclofenac Sodium (Voltaren) 1 loulou BID TP Last administered on 11/24/19 22:07; Start 11/17/19 at 21:00 Enoxaparin Sodium (Lovenox 40mg Syringe) 40 mg Q12H SQ Last administered on 11/25/19 08:31; Start 11/17/19 at 21:00 Lactobacillus Rhamnosus (Culturelle) 1 cap BID PO Last administered on 11/25/19 08:30; Start 11/17/19 at 21:00 Cefdinir (Omnicef) 300 mg BID PO Last administered on 11/25/19 08:30; Start 11/18/19 at 10:15 Cyanocobalamin (Vitamin B-12) 1,000 mcg 1X ONCE IM Last administered on 11/18/19 12:20; Start 11/18/19 at 11:30; Stop 11/18/19 at 11:33; Status DC Cyanocobalamin (Vitamin B-12) 1,000 mcg DAILY PO Last administered on 11/25/19 08:29; Start 11/19/19 at 09:00 Fluoxetine HCl (PROzac) 20 mg DAILY PO Last administered on 11/25/19 08:30; Start 11/19/19 at 14:15 Lidocaine (Lidoderm) 1 patch HS TD Last administered on 11/24/19 22:07; Start 11/19/19 at 21:00 Miscellaneous (Lidoderm Patch Removal) 1 ea DAILY MC Last administered on 11/25/19 08:37; Start 11/20/19 at 09:00 Ondansetron HCl (Zofran Odt) 4 mg PRN Q6HRS PRN PO NAUSEA/VOMITING Last a dministered on 11/20/19at 18:45; Start 11/20/19 at 18:30 Methylprednisolone Acetate (DEPO-Medrol 40MG VIAL) 40 mg 1X ONCE IM ; Start 11/21/19 at 09:00; Stop 11/21/19 at 09:01; Status DC Bupivacaine HCl (Sensorcaine-Mpf 0.25%) 10 ml 1X ONCE IJ ; Start 11/21/19 at 09:00; Stop 11/21/19 at 09:01; Status DC Methylprednisolone Acetate (DEPO-Medrol 40MG VIAL) 40 mg 1X ONCE IM ; Start 11/21/19 at 09:00; Stop 11/21/19 at 09:01; Status DC Oxycodone/ Acetaminophen (Percocet 10/325) 1 tab PRN Q6HRS PRN PO SEVERE PAIN Last administered on 11/25/19 08:31; Start 11/22/19 at 11:45 Oxycodone/ Acetaminophen (Percocet 10/325) 1 tab 1X STAT PO Last administered on 11/22/19 11:54; Start 11/22/19 at 11:44; Stop 11/22/19 at 11:49; Status DC Methylprednisolone Acetate (DEPO-Medrol 40MG VIAL) 40 mg 1X ONCE IM Last administered on 11/22/19at 13:00; Start 11/22/19 at 13:00; Stop 11/22/19 at 13:05; Status DC Bupivacaine HCl (Sensorcaine-Mpf 0.25%) 10 ml 1X ONCE IJ Last administered on 11/22/19at 13:00; Start 11/22/19 at 13:00; Stop 11/22/19 at 13:05; Status DC Active Scripts Active Novolog Flexpen (Insulin Aspart) 100 Unit/1 Ml Insuln.pen 100 Unit SQ TID PRN PRN Reported Fluoxetine Hcl 20 Mg Capsule 20 Mg PO DAILY 90 Days Lantus Solostar (Insulin Glargine,Hum.rec.anlog) 100 Unit/1 Ml Insuln.pen 20 Unit SQ QHS Senokot-S Tablet (Sennosides/Docusate Sodium) 1 Each Tablet 1 Each PO PRN DAILY PRN Benadryl (Diphenhydramine Hcl) 25 Mg Capsule 25 Mg PO PRN QHS PRN Acetaminophen 500 Mg Tablet 500 Mg PO PRN Q6HRS PRN Spironolactone 25 Mg Tablet 25 Mg PO DAILY Colace (Docusate Sodium) 100 Mg Capsule 100 Mg PO PRN DAILY PRN Coreg (Carvedilol) 25 Mg Tablet 12.5 Mg PO BIDWMEALS Nitrostat (Nitroglycerin) 0.4 Mg Tab.subl 0.4 Mg SL PRN Q5MIN PRN Hydrocodone-Apap 7.5-325 (Hydrocodone Bit/Acetaminophen) 1 Tab Tablet 1 Tab PO PRN TID PRN Synthroid (Levothyroxine Sodium) 200 Mcg Tablet 200 Mcg PO DAILY Vitals/I & O Vital Sign - Last 24 Hours 11/24/19 11/24/19 11/24/19 11/24/19 15:00 16:35 16:35 17:35 Temp 98.3 98.3 Pulse 62 61 Resp 16 20 20 B/P (MAP) 135/51 (79) 161/67 Pulse Ox 93 94 94 O2 Delivery Room Air Room Air Room Air 11/24/19 11/24/19 11/24/19 11/25/19 19:00 20:00 23:00 03:00 Temp 97.6 97.9 97.7 97.6 97.9 97.7 Pulse 59 60 60 Resp 17 17 16 B/P (MAP) 98/56 (70) 158/61 (93) 165/62 (96) Pulse Ox 97 95 94 O2 Delivery Room Air Room Air Room Air Room Air 11/25/19 11/25/19 11/25/19 11/25/19 07:37 08:00 08:30 08:31 Temp 98.2 98.2 Pulse 59 60 Resp 18 B/P (MAP) 172/69 (103) 165/62 Pulse Ox 100 O2 Delivery Room Air Room Air Room Air 11/25/19 09:31 O2 Delivery Room Air Intake and Output 11/24/19 11/24/19 11/25/19 15:00 23:00 07:00 Intake Total 560 ml 250 ml 370 ml Balance 560 ml 250 ml 370 ml PAWAN FLETCHER MD Nov 25, 2019 11:12
[2019-11-25 11:59] VITALS: BP 135/54
--- NOTE | 2019-11-25 12:22 | PDOC ---
[facility] PROGRESS NOTE Chief Complaint Chief Complaint impression Left shoulder Bankart fracture status post steroid injection by Dr. Pan Acute encephalopathy UTI Urinary incontinence Morbid obesity BMI 50 - Lower back pain Bilateral knee pain Diabetes type 2 Hypertension Hyponatremia Hypomagnesemia Hypothyroid Rash 1/3 pain overall in her knees,low back,hip and shoulder area.slow to resolve History of Present Illness History of Present Illness Ms Kenney is a 74yo F w/ PMHx DM2, HLD, HTN, CAD s/p stenting who p/w 2 other family members due to confusion and hallucinations, mostly visual. The patient is aware of this and the confusion. She does note a few recent falls, though they were "soft". She c/o some dysuria as well as some mid lower back pain. She has previously been confused with UTIs per family. Labs significant for grossly abnormal UA, cultured and started on rocephin. She was also noted with Na of 128, glucose of 309, Mg 1.4, microcytic anemia, and underwent CXR and CT both of which were negative for acute pathology. EKG was NSR. 11/17: Overnight started feeling a bit better. This morning she lost IV access, now has a rash on her left hand and arm, vesicular, a bit painful. 11/18 Shingles feeling better. She just wishes to rest today. Still very weak. No CP or SOB 11/19: Left shoulder hurting, shingles better. No cough. She is tearful, thinks she needs her prozac. Still grieving over the loss of her in July and trying to evict her daughter in law. Feeling a bit better, still with left shoulder pain, bilateral knee pain. Urine with NGTD. Shingles rash improving. Still very weak. Much less confused. Plan: Treat shingles 1000mg TID valtrex Needs rehab on d/c SNF vs Acute rehab PMR for injections, previously had good outcomes with synvisc in bilateral knees 11/21/19 Patient seen and examined Chart reviewed Discussed with RN 11/22/19 Patient seen and examined Chart reviewed Discussed with RN Called Dr. Pan he just arrived as well I reviewed the chart with her daughter and then talked to her entire family is well [id number] Patient seen and examined Chart reviewed I helped Dr. Pan inject her left shoulder yesterday with steroids [id number] Patient seen and examined Her left shoulder feels much better after the injections Discussed with RN and she is here examined the patient with me Chart reviewed Plan is to get her to prison on Wednesday Vitals/I&O Vitals/I&O: Vital Signs Date Time Temp Pulse Resp B/P (MAP) Pulse Ox O2 Delivery O2 Flow Rate FiO2 11/25/19 09:31 Room Air 11/25/19 08:30 60 165/62 11/25/19 07:37 98.2 18 100 98.2 I & O 11/24/19 11/24/19 11/25/19 15:00 23:00 07:00 Intake Total 560 ml 250 ml 370 ml Balance 560 ml 250 ml 370 ml Physical Exam General: Alert, Oriented X3, Cooperative, No acute distress, Other Heart: Regular rate, Normal S1, Normal S2 Lungs: Clear Abdomen: Normal bowel sounds, Soft, No tenderness, No hepatosplenomegaly, No masses Extremities: No clubbing, Other (gross alignment of the shoulder is normal with no evidence of current dislocation. There is no swelling around the shoulder. There is no ecchymosis. She has active elevation and abduction to at least 90degrees, without pain or instability. I was able to get her gently into the slightly abducted externally rotated position without evidence of instability or apprehension. Her rotator cuff strength is good, without any obvious drop arm sign, and I don't think she has a cuff tear. She does have positive impingement signs on examination. The distal neurovascular function in the hand and arm are normal.) Skin: No rashes, No breakdown, No significant lesion Labs Labs: Laboratory Tests Test 11/24/19 16:58 11/24/19 20:50 11/25/19 03:50 11/25/19 07:34 Glucose (Fingerstick) 255 mg/dL (70-99) 248 mg/dL (70-99) 169 mg/dL (70-99) White Blood Count 11.4 x10^3/uL (4.0-11.0) Red Blood Count 4.56 x10^6/uL (3.50-5.40) Hemoglobin 10.9 g/dL (12.0-15.5) Hematocrit 35.0 % (36.0-47.0) Mean Corpuscular Volume 77 fL (79-100) Mean Corpuscular Hemoglobin 24 pg (25-35) Mean Corpuscular Hemoglobin Concent 31 g/dL (31-37) Red Cell Distribution Width 17.1 % (11.5-14.5) Platelet Count 274 x10^3/uL (140-400) Neutrophils (%) (Auto) 59 % (31-73) Lymphocytes (%) (Auto) 33 % (24-48) Monocytes (%) (Auto) 6 % (0-9) Eosinophils (%) (Auto) 2 % (0-3) Basophils (%) (Auto) 1 % (0-3) Neutrophils # (Auto) 6.7 x10^3/uL (1.8-7.7) Lymphocytes # (Auto) 3.8 x10^3/uL (1.0-4.8) Monocytes # (Auto) 0.6 x10^3/uL (0.0-1.1) Eosinophils # (Auto) 0.2 x10^3/uL (0.0-0.7) Basophils # (Auto) 0.1 x10^3/uL (0.0-0.2) Sodium Level 136 mmol/L (136-145) Potassium Level 4.2 mmol/L (3.5-5.1) Chloride Level 99 mmol/L (98-107) Carbon Dioxide Level 31 mmol/L (21-32) Anion Gap 6 (6-14) Blood Urea Nitrogen 30 mg/dL (7-20) Creatinine 1.1 mg/dL (0.6-1.0) Estimated GFR (Cockcroft-Gault) 48.3 Glucose Level 205 mg/dL (70-99) Calcium Level 9.6 mg/dL (8.5-10.1) Assessment and Plan Assessmemt and Plan Problems Medical Problems: (1) Altered mental status Status: Acute (2) Hyperglycemia Status: Acute (3) Urinary tract infection Status: Acute Left shoulder Bankart fracture status post steroid injection yesterday by Dr. Pan Acute encephalopathy UTI Urinary incontinence Morbid obesity BMI 50 - Lower back pain Bilateral knee pain Diabetes type 2 Hypertension Hyponatremia Hypomagnesemia Hypothyroid Rash Plan [facility]DC Wednesday and for now following: Continue to monitor the left shoulder PT OT Antibiotics When necessary pain meds Continue home meds Monitor electrolytes Suspect she needs to go to prison and actually she agrees with Comment Review of Relevant I have reviewed the following items jina (where applicable) has been applied. CHANDLER BLAKELY III DO Nov 25, 2019 12:22
--- NOTE | 2019-11-25 12:29 | NUR ---
Voltaren: Pt was eating breakfast when med was due, asked to get med after breakfast. Went to admin med, pt was sleeping. When pt woke up she stated she will wait until tonight's dose of Voltaren. Non-admin med
[2019-11-25 15:59] VITALS: BP 134/45
[2019-11-25] MEDS: DOCUSATE SODIUM 100 MG CAPSULE. PO PRN (17:13)
[2019-11-25 19:00] VITALS: BP 139/48
[2019-11-25] MEDS: LIDOCAINE (700MG/PATCH) PATCH. TD SCH (20:46)
[2019-11-25] MEDS: INSULIN GLARGINE SYRINGE. SQ SCH (20:48)
[2019-11-25 23:00] VITALS: BP 103/51
[2019-11-26 03:00] VITALS: BP 140/57
[2019-11-26] MEDS: oxyCODONE/APAP 10/325 1 TAB TABLET PO PRN ×3 (03:28→20:22)
[2019-11-26 04:19] LABS: BASO % 0 % (0-3); EOS # 0.2 x10^3/uL (0.0-0.7); EOS % 2 % (0-3); HEMATOCRIT 35.4 % (36.0-47.0); HEMOGLOBIN 11.2 g/dL (12.0-15.5); LYMPH # 3.5 x10^3/uL (1.0-4.8); LYMPH % 37 % (24-48); MEAN CORPUSCULAR HEMOGLOBIN 24 pg (25-35); MEAN CORPUSCULAR HGB CONC 32 g/dL (31-37); MEAN CORPUSCULAR VOLUME 77 fL (79-100); MONO # 0.6 x10^3/uL (0.0-1.1); MONO % 6 % (0-9); NEUT % 54 % (31-73); PLATELET COUNT 295 x10^3/uL (140-400); RED CELL DISTRIBUTION WIDTH 17.2 % (11.5-14.5); WHITE BLOOD COUNT 9.3 x10^3/uL (4.0-11.0)
[2019-11-26 04:42] LABS: CALCIUM 9.8 mg/dL (8.5-10.1); CREATININE 1.1 mg/dL (0.6-1.0); GFR 48.3; POTASSIUM 4.1 mmol/L (3.5-5.1)
[2019-11-26] MEDS: LEVOTHYROXINE 100 MCG TABLET PO SCH (06:12)
[2019-11-26 07:00] VITALS: BP 145/52
[2019-11-26] MEDS: INSULIN LISPRO 300 UNITS/3 ML VIAL. SQ SCH ×4 (07:30→20:22)
[2019-11-26] MEDS: PATCH REMOVAL. MC SCH (09:00)
[2019-11-26] MEDS: CEFDINIR 300 MG CAPSULE PO SCH ×2 (09:43→20:23)
[2019-11-26] MEDS: CYANOCOBALAMIN (VITAMIN B-12) 1,000 MCG TABLET. PO SCH (09:44)
[2019-11-26] MEDS: valACYclovir 500 MG TABLET. PO SCH ×3 (09:44→20:23)
[2019-11-26] MEDS: ASCORBIC ACID 500 MG TABLET PO SCH ×2 (09:44→20:23)
[2019-11-26] MEDS: CARVEDILOL 12.5 MG TABLET. PO SCH ×2 (09:44→17:42)
[2019-11-26] MEDS: FLUoxetine HCL 20 MG CAPSULE PO SCH (09:44)
[2019-11-26] MEDS: LACTOBACILLUS RHAMNOSUS GG 1 CAPSULE. PO SCH ×2 (09:44→20:22)
[2019-11-26] MEDS: DICLOFENAC SODIUM 1% TOPICAL GEL 100GM TUBE. TP SCH ×2 (09:45→20:33)
[2019-11-26] MEDS: ENOXAPARIN 40 MG/0.4 ML SYRINGE. SQ SCH ×2 (09:45→20:30)
[2019-11-26 11:59] VITALS: BP 120/46
--- NOTE | 2019-11-26 13:17 | PDOC ---
[facility] [facility] PROGRESS NOTE Chief Complaint Chief Complaint impression Left shoulder Bankart fracture status post steroid injection by Dr. Pan Acute encephalopathy UTI Urinary incontinence Morbid obesity BMI 50 - Lower back pain Bilateral knee pain Diabetes type 2 Hypertension Hyponatremia Hypomagnesemia Hypothyroid Rash 1/3 pain overall in her knees,low back,hip and shoulder area.slow to resolve History of Present Illness History of Present Illness Ms Kenney is a 74yo F w/ PMHx DM2, HLD, HTN, CAD s/p stenting who p/w 2 other family members due to confusion and hallucinations, mostly visual. The patient is aware of this and the confusion. She does note a few recent falls, though they were "soft". She c/o some dysuria as well as some mid lower back pain. She has previously been confused with UTIs per family. Labs significant for grossly abnormal UA, cultured and started on rocephin. She was also noted with Na of 128, glucose of 309, Mg 1.4, microcytic anemia, and underwent CXR and CT both of which were negative for acute pathology. EKG was NSR. 11/17: Overnight started feeling a bit better. This morning she lost IV access, now has a rash on her left hand and arm, vesicular, a bit painful. 11/18 Shingles feeling better. She just wishes to rest today. Still very weak. No CP or SOB 11/19: Left shoulder hurting, shingles better. No cough. She is tearful, thinks she needs her prozac. Still grieving over the loss of her in July and trying to evict her daughter in law. 11/21/19 Patient seen and examined Chart reviewed Discussed with RN 11/22/19 Patient seen and examined Chart reviewed Discussed with RN Called Dr. Pan he just arrived as well I reviewed the chart with her daughter and then talked to her entire family is well [id number] Patient seen and examined Chart reviewed I helped Dr. Pan inject her left shoulder yesterday with steroids [id number] Patient seen and examined Her left shoulder feels much better after the injections Discussed with RN and she is here examined the patient with me Chart reviewed Plan is to get her to nursing home on Wednesday [id number] Patient seen and examined She feels better Basically or just waiting for nursing home placement Chart reviewed discussed with RN Vitals/I&O Vitals/I&O: Vital Signs Date Time Temp Pulse Resp B/P (MAP) Pulse Ox O2 Delivery O2 Flow Rate FiO2 11/26/19 10:43 Room Air 11/26/19 09:44 59 145/52 11/26/19 07:00 98.0 18 93 98.0 I & O 11/25/19 11/25/19 11/26/19 15:00 23:00 07:00 Intake Total 100 ml Balance 100 ml Physical Exam General: Alert, Oriented X3, Cooperative, No acute distress, Other Heart: Regular rate, Normal S1, Normal S2 Lungs: Clear Abdomen: Normal bowel sounds, Soft, No tenderness, No hepatosplenomegaly, No masses Extremities: No clubbing, Other (gross alignment of the shoulder is normal with no evidence of current dislocation. There is no swelling around the shoulder. There is no ecchymosis. She has active elevation and abduction to at least 90degrees, without pain or instability. I was able to get her gently into the slightly abducted externally rotated position without evidence of instability or apprehension. Her rotator cuff strength is good, without any obvious drop arm sign, and I don't think she has a cuff tear. She does have positive impingement signs on examination. The distal neurovascular function in the hand and arm are normal.) Skin: No rashes, No breakdown, No significant lesion Labs Labs: Laboratory Tests Test 11/25/19 16:43 11/25/19 20:39 11/26/19 03:45 11/26/19 07:30 Glucose (Fingerstick) 255 mg/dL (70-99) 246 mg/dL (70-99) 145 mg/dL (70-99) White Blood Count 9.3 x10^3/uL (4.0-11.0) Red Blood Count 4.60 x10^6/uL (3.50-5.40) Hemoglobin 11.2 g/dL (12.0-15.5) Hematocrit 35.4 % (36.0-47.0) Mean Corpuscular Volume 77 fL (79-100) Mean Corpuscular Hemoglobin 24 pg (25-35) Mean Corpuscular Hemoglobin Concent 32 g/dL (31-37) Red Cell Distribution Width 17.2 % (11.5-14.5) Platelet Count 295 x10^3/uL (140-400) Neutrophils (%) (Auto) 54 % (31-73) Lymphocytes (%) (Auto) 37 % (24-48) Monocytes (%) (Auto) 6 % (0-9) Eosinophils (%) (Auto) 2 % (0-3) Basophils (%) (Auto) 0 % (0-3) Neutrophils # (Auto) 5.0 x10^3/uL (1.8-7.7) Lymphocytes # (Auto) 3.5 x10^3/uL (1.0-4.8) Monocytes # (Auto) 0.6 x10^3/uL (0.0-1.1) Eosinophils # (Auto) 0.2 x10^3/uL (0.0-0.7) Basophils # (Auto) 0.0 x10^3/uL (0.0-0.2) Sodium Level 136 mmol/L (136-145) Potassium Level 4.1 mmol/L (3.5-5.1) Chloride Level 100 mmol/L (98-107) Carbon Dioxide Level 27 mmol/L (21-32) Anion Gap 9 (6-14) Blood Urea Nitrogen 28 mg/dL (7-20) Creatinine 1.1 mg/dL (0.6-1.0) Estimated GFR (Cockcroft-Gault) 48.3 Glucose Level 163 mg/dL (70-99) Calcium Level 9.8 mg/dL (8.5-10.1) Test 11/26/19 12:06 Glucose (Fingerstick) 242 mg/dL (70-99) Assessment and Plan Assessmemt and Plan Problems Medical Problems: (1) Altered mental status Status: Acute (2) Hyperglycemia Status: Acute (3) Urinary tract infection Status: Acute Left shoulder Bankart fracture status post steroid injection yesterday by Dr. Pan Acute encephalopathy UTI Urinary incontinence Morbid obesity BMI 50 - Lower back pain Bilateral knee pain Diabetes type 2 Hypertension Hyponatremia Hypomagnesemia Hypothyroid Rash Plan detention Wednesday and for now following: Continue to monitor the left shoulder PT OT Antibiotics When necessary pain meds Continue home meds Monitor electrolytes Suspect she needs to go to nursing home and actually she agrees with Comment Review of Relevant I have reviewed the following items jina (where applicable) has been applied. CHANDLER BLAKELY III DO Nov 26, 2019 13:17
[2019-11-26 15:59] VITALS: BP 149/56
[2019-11-26 19:00] VITALS: BP 128/54
[2019-11-26] MEDS: LIDOCAINE (700MG/PATCH) PATCH. TD SCH (20:33)
[2019-11-26] MEDS: INSULIN GLARGINE SYRINGE. SQ SCH (20:48)
[2019-11-26 23:00] VITALS: BP 140/48
[2019-11-27 04:42] VITALS: BP 150/69
[2019-11-27 04:46] LABS: BASO # 0.1 x10^3/uL (0.0-0.2); BASO % 1 % (0-3); EOS # 0.2 x10^3/uL (0.0-0.7); EOS % 2 % (0-3); HEMATOCRIT 34.8 % (36.0-47.0); LYMPH # 4.2 x10^3/uL (1.0-4.8); LYMPH % 43 % (24-48); MEAN CORPUSCULAR HEMOGLOBIN 25 pg (25-35); MEAN CORPUSCULAR HGB CONC 32 g/dL (31-37); MEAN CORPUSCULAR VOLUME 77 fL (79-100); MONO # 0.6 x10^3/uL (0.0-1.1); MONO % 6 % (0-9); NEUT # 4.8 x10^3/uL (1.8-7.7); NEUT % 49 % (31-73); PLATELET COUNT 258 x10^3/uL (140-400); RED BLOOD COUNT 4.51 x10^6/uL (3.50-5.40); RED CELL DISTRIBUTION WIDTH 17.4 % (11.5-14.5); WHITE BLOOD COUNT 9.8 x10^3/uL (4.0-11.0)
[2019-11-27 05:17] LABS: CALCIUM 9.5 mg/dL (8.5-10.1); CREATININE 1.1 mg/dL (0.6-1.0); GFR 48.3; POTASSIUM 4.4 mmol/L (3.5-5.1)
[2019-11-27] MEDS: LEVOTHYROXINE 100 MCG TABLET PO SCH (05:47)
[2019-11-27 07:00] VITALS: BP 172/62
[2019-11-27] MEDS: DOCUSATE SODIUM 100 MG CAPSULE. PO PRN (08:18)
[2019-11-27] MEDS: SENNOSIDES/DOCUSATE 8.6/50MG TABLET. PO PRN (08:18)
[2019-11-27] MEDS: LACTOBACILLUS RHAMNOSUS GG 1 CAPSULE. PO SCH (08:19)
[2019-11-27] MEDS: ENOXAPARIN 40 MG/0.4 ML SYRINGE. SQ SCH (08:19)
[2019-11-27] MEDS: FLUoxetine HCL 20 MG CAPSULE PO SCH (08:19)
[2019-11-27] MEDS: CEFDINIR 300 MG CAPSULE PO SCH (08:19)
[2019-11-27] MEDS: CYANOCOBALAMIN (VITAMIN B-12) 1,000 MCG TABLET. PO SCH (08:20)
[2019-11-27] MEDS: CARVEDILOL 12.5 MG TABLET. PO SCH (08:20)
[2019-11-27] MEDS: ASCORBIC ACID 500 MG TABLET PO SCH (08:20)
[2019-11-27] MEDS: PATCH REMOVAL. MC SCH (08:20)
[2019-11-27] MEDS: DICLOFENAC SODIUM 1% TOPICAL GEL 100GM TUBE. TP SCH (08:20)
[2019-11-27] MEDS: INSULIN LISPRO 300 UNITS/3 ML VIAL. SQ SCH ×2 (08:33→12:51)
--- NOTE | 2019-11-27 10:16 | PDOC ---
PROGRESS NOTES Subjective Subjective No new complaints. Objective Objective Vital Signs Date Time Temp Pulse Resp B/P (MAP) Pulse Ox O2 Delivery O2 Flow Rate FiO2 11/27/19 08:20 59 172/62 11/27/19 07:00 97.9 19 96 Room Air 97.9 Intake and Output 11/27/19 07:00 # Voids 2 Physical Exam Physical Exam She is supine in bed and seems to be comfortable and she is working with physical therapy and slow progress with her mobility. Assessment Assessment Problems Medical Problems: (1) Altered mental status Status: Acute (2) Hyperglycemia Status: Acute (3) Urinary tract infection Status: Acute Plan Plan of Care To SNF when medically stable. Comment Review of Relevant I have reviewed the following items jina (where applicable) has been applied. Labs Laboratory Tests Test 11/25/19 11:36 11/25/19 16:43 11/25/19 20:39 11/26/19 03:45 Glucose (Fingerstick) 219 mg/dL (70-99) 255 mg/dL (70-99) 246 mg/dL (70-99) White Blood Count 9.3 x10^3/uL (4.0-11.0) Red Blood Count 4.60 x10^6/uL (3.50-5.40) Hemoglobin 11.2 g/dL (12.0-15.5) Hematocrit 35.4 % (36.0-47.0) Mean Corpuscular Volume 77 fL (79-100) Mean Corpuscular Hemoglobin 24 pg (25-35) Mean Corpuscular Hemoglobin Concent 32 g/dL (31-37) Red Cell Distribution Width 17.2 % (11.5-14.5) Platelet Count 295 x10^3/uL (140-400) Neutrophils (%) (Auto) 54 % (31-73) Lymphocytes (%) (Auto) 37 % (24-48) Monocytes (%) (Auto) 6 % (0-9) Eosinophils (%) (Auto) 2 % (0-3) Basophils (%) (Auto) 0 % (0-3) Neutrophils # (Auto) 5.0 x10^3/uL (1.8-7.7) Lymphocytes # (Auto) 3.5 x10^3/uL (1.0-4.8) Monocytes # (Auto) 0.6 x10^3/uL (0.0-1.1) Eosinophils # (Auto) 0.2 x10^3/uL (0.0-0.7) Basophils # (Auto) 0.0 x10^3/uL (0.0-0.2) Sodium Level 136 mmol/L (136-145) Potassium Level 4.1 mmol/L (3.5-5.1) Chloride Level 100 mmol/L (98-107) Carbon Dioxide Level 27 mmol/L (21-32) Anion Gap 9 (6-14) Blood Urea Nitrogen 28 mg/dL (7-20) Creatinine 1.1 mg/dL (0.6-1.0) Estimated GFR (Cockcroft-Gault) 48.3 Glucose Level 163 mg/dL (70-99) Calcium Level 9.8 mg/dL (8.5-10.1) Test 11/26/19 07:30 11/26/19 12:06 11/26/19 16:43 11/26/19 20:20 Glucose (Fingerstick) 145 mg/dL (70-99) 242 mg/dL (70-99) 172 mg/dL (70-99) 198 mg/dL (70-99) Test 11/27/19 04:20 11/27/19 04:25 11/27/19 07:57 Sodium Level 137 mmol/L (136-145) Potassium Level 4.4 mmol/L (3.5-5.1) Chloride Level 101 mmol/L (98-107) Carbon Dioxide Level 30 mmol/L (21-32) Anion Gap 6 (6-14) Blood Urea Nitrogen 23 mg/dL (7-20) Creatinine 1.1 mg/dL (0.6-1.0) Estimated GFR (Cockcroft-Gault) 48.3 Glucose Level 195 mg/dL (70-99) Calcium Level 9.5 mg/dL (8.5-10.1) White Blood Count 9.8 x10^3/uL (4.0-11.0) Red Blood Count 4.51 x10^6/uL (3.50-5.40) Hemoglobin 11.0 g/dL (12.0-15.5) Hematocrit 34.8 % (36.0-47.0) Mean Corpuscular Volume 77 fL (79-100) Mean Corpuscular Hemoglobin 25 pg (25-35) Mean Corpuscular Hemoglobin Concent 32 g/dL (31-37) Red Cell Distribution Width 17.4 % (11.5-14.5) Platelet Count 258 x10^3/uL (140-400) Neutrophils (%) (Auto) 49 % (31-73) Lymphocytes (%) (Auto) 43 % (24-48) Monocytes (%) (Auto) 6 % (0-9) Eosinophils (%) (Auto) 2 % (0-3) Basophils (%) (Auto) 1 % (0-3) Neutrophils # (Auto) 4.8 x10^3/uL (1.8-7.7) Lymphocytes # (Auto) 4.2 x10^3/uL (1.0-4.8) Monocytes # (Auto) 0.6 x10^3/uL (0.0-1.1) Eosinophils # (Auto) 0.2 x10^3/uL (0.0-0.7) Basophils # (Auto) 0.1 x10^3/uL (0.0-0.2) Glucose (Fingerstick) 194 mg/dL (70-99) Laboratory Tests Test 11/26/19 12:06 11/26/19 16:43 11/26/19 20:20 11/27/19 04:20 Glucose (Fingerstick) 242 mg/dL (70-99) 172 mg/dL (70-99) 198 mg/dL (70-99) Sodium Level 137 mmol/L (136-145) Potassium Level 4.4 mmol/L (3.5-5.1) Chloride Level 101 mmol/L (98-107) Carbon Dioxide Level 30 mmol/L (21-32) Anion Gap 6 (6-14) Blood Urea Nitrogen 23 mg/dL (7-20) Creatinine 1.1 mg/dL (0.6-1.0) Estimated GFR (Cockcroft-Gault) 48.3 Glucose Level 195 mg/dL (70-99) Calcium Level 9.5 mg/dL (8.5-10.1) Test 11/27/19 04:25 11/27/19 07:57 White Blood Count 9.8 x10^3/uL (4.0-11.0) Red Blood Count 4.51 x10^6/uL (3.50-5.40) Hemoglobin 11.0 g/dL (12.0-15.5) Hematocrit 34.8 % (36.0-47.0) Mean Corpuscular Volume 77 fL (79-100) Mean Corpuscular Hemoglobin 25 pg (25-35) Mean Corpuscular Hemoglobin Concent 32 g/dL (31-37) Red Cell Distribution Width 17.4 % (11.5-14.5) Platelet Count 258 x10^3/uL (140-400) Neutrophils (%) (Auto) 49 % (31-73) Lymphocytes (%) (Auto) 43 % (24-48) Monocytes (%) (Auto) 6 % (0-9) Eosinophils (%) (Auto) 2 % (0-3) Basophils (%) (Auto) 1 % (0-3) Neutrophils # (Auto) 4.8 x10^3/uL (1.8-7.7) Lymphocytes # (Auto) 4.2 x10^3/uL (1.0-4.8) Monocytes # (Auto) 0.6 x10^3/uL (0.0-1.1) Eosinophils # (Auto) 0.2 x10^3/uL (0.0-0.7) Basophils # (Auto) 0.1 x10^3/uL (0.0-0.2) Glucose (Fingerstick) 194 mg/dL (70-99) Microbiology 11/16/19 Urine Culture - Final, Complete 11/16/19 Urine Culture Result 1 (HARITHA) - Final, Complete Medications Current Medications Sodium Chloride 1,000 ml @ 1,000 mls/hr 1X ONCE IV Last administered on 11/16/19at 14:43; Start 11/16/19 at 14:15; Stop 11/16/19 at 15:14; Status DC Ceftriaxone Sodium (Rocephin) 1 gm 1X ONCE IVP Last administered on 11/16/19at 17:20; Start 11/16/19 at 16:30; Stop 11/16/19 at 16:31; Status DC Acetaminophen (Tylenol) 500 mg PRN Q6HRS PRN PO MILD PAIN 1-3 Last administered on 11/17/19at 15:02; Start 11/16/19 at 17:45 Docusate Sodium (Colace) 100 mg PRN DAILY PRN PO HARD STOOLS Last administered on 11/27/19 08:18; Start 11/16/19 at 17:45 Acetaminophen/ Hydrocodone Bitart (Lortab 7.5/325) 1 tab PRN TID PRN PO MODERATE PAIN Last administered on 11/23/19 13:35; Start 11/16/19 at 17:45 Nitroglycerin (Nitrostat) 0.4 mg PRN Q5MIN PRN SL CHEST PAIN; Start 11/16/19 at 17:45 Senna/Docusate Sodium (Senna Plus) 1 tab PRN DAILY PRN PO CONSTIPATION Last administered on 11/27/19 08:18; Start 11/16/19 at 17:45 Carvedilol (Coreg) 12.5 mg BIDWMEALS PO Last administered on 11/27/19 08:20; Start 11/16/19 at 18:00 Insulin Glargine (Lantus Syringe) 20 unit QHS SQ Last administered on 11/26/19 20:48; Start 11/16/19 at 21:00 Levothyroxine Sodium (Synthroid) 200 mcg DAILY06 PO Last administered on 11/27/19 05:47; Start 11/17/19 at 06:00 Ondansetron HCl (Zofran) 4 mg PRN Q8HRS PRN IV NAUSEA/VOMITING; Start 11/16/19 at 18:00; Stop 11/16/19 at 21:39; Status DC Morphine Sulfate (Morphine Sulfate) 2 mg PRN Q2HR PRN IV PAIN; Start 11/16/19 at 18:00; Stop 11/17/19 at 17:59; Status DC Acetaminophen (Tylenol) 650 mg PRN Q4HRS PRN PO FEVER; Start 11/16/19 at 18:00; Stop 11/17/19 at 17:07; Status DC Sodium Chloride 1,000 ml @ 125 mls/hr 1X ONCE IV Last administered on 11/16/19at 19:48; Start 11/16/19 at 18:00; Stop 11/17/19 at 01:59; Status DC Ondansetron HCl (Zofran) 4 mg PRN Q6HRS PRN IV NAUSEA/VOMITING; Start 11/16/19 at 21:45 Ceftriaxone Sodium (Rocephin) 1 gm Q24H IVP Last administered on 11/17/19at 08:55; Start 11/17/19 at 09:30; Stop 11/18/19 at 10:05; Status DC Magnesium Sulfate 100 ml @ 25 mls/hr 1X ONCE IV Last administered on 11/16/19at 22:06; Start 11/16/19 at 22:00; Stop 11/17/19 at 01:59; Status DC Enoxaparin Sodium (Lovenox 30mg Syringe) 30 mg Q24H SQ Last administered on 11/16/19at 22:06; Start 11/16/19 at 22:00; Stop 11/17/19 at 17:12; Status DC Insulin Human Lispro (HumaLOG) 0-7 UNITS TIDACHC SQ Last administered on 0at 08:33; Start 11/17/19 at 07:30 Dextrose (Dextrose 50%-Water Syringe) 12.5 gm PRN Q15MIN PRN IV SEE COMMENTS; Start 11/16/19 at 21:45 Dextrose (Iv Dextrose 5%) 250 ml PRN Q15MIN PRN IV SEE COMMENTS; Start 11/16/19 at 21:45 Valacyclovir HCl (Valtrex) 1,000 mg TID PO Last administered on 11/26/19at 20:23; Start 11/17/19 at 14:30 Ascorbic Acid (Vitamin C) 500 mg BID PO Last administered on 11/27/19 08:20; Start 11/17/19 at 21:00 Diclofenac Sodium (Voltaren) 1 loulou BID TP Last administered on 11/27/19 08:20; Start 11/17/19 at 21:00 Enoxaparin Sodium (Lovenox 40mg Syringe) 40 mg Q12H SQ Last administered on 11/27/19 08:19; Start 11/17/19 at 21:00 Lactobacillus Rhamnosus (Culturelle) 1 cap BID PO Last administered on 11/27/19 08:19; Start 11/17/19 at 21:00 Cefdinir (Omnicef) 300 mg BID PO Last administered on 11/27/19 08:19; Start 11/18/19 at 10:15 Cyanocobalamin (Vitamin B-12) 1,000 mcg 1X ONCE IM Last administered on 11/18/19at 12:20; Start 11/18/19 at 11:30; Stop 11/18/19 at 11:33; Status DC Cyanocobalamin (Vitamin B-12) 1,000 mcg DAILY PO Last administered on 11/27/19 08:20; Start 11/19/19 at 09:00 Fluoxetine HCl (PROzac) 20 mg DAILY PO Last administered on 11/27/19 08:19; Start 11/19/19 at 14:15 Lidocaine (Lidoderm) 1 patch HS TD Last administered on 11/26/19 20:33; Start 11/19/19 at 21:00 Miscellaneous (Lidoderm Patch Removal) 1 ea DAILY MC Last administered on 11/27/19 08:20; Start 11/20/19 at 09:00 Ondansetron HCl (Zofran Odt) 4 mg PRN Q6HRS PRN PO NAUSEA/VOMITING Last administered on 11/20/19at 18:45; Start 11/20/19 at 18:30 Methylprednisolone Acetate (DEPO-Medrol 40MG VIAL) 40 mg 1X ONCE IM ; Start 11/21/19 at 09:00; Stop 11/21/19 at 09:01; Status DC Bupivacaine HCl (Sensorcaine-Mpf 0.25%) 10 ml 1X ONCE IJ ; Start 11/21/19 at 09:00; Stop 11/21/19 at 09:01; Status DC Methylprednisolone Acetate (DEPO-Medrol 40MG VIAL) 40 mg 1X ONCE IM ; Start 1 at 09:00; Stop 11/21/19 at 09:01; Status DC Oxycodone/ Acetaminophen (Percocet 10/325) 1 tab PRN Q6HRS PRN PO SEVERE PAIN Last administered on 11/26/19 20:22; Start 11/22/19 at 11:45 Oxycodone/ Acetaminophen (Percocet 10/325) 1 tab 1X STAT PO Last administered on 11/22/19at 11:54; Start 11/22/19 at 11:44; Stop 11/22/19 at 11:49; Status DC Methylprednisolone Acetate (DEPO-Medrol 40MG VIAL) 40 mg 1X ONCE IM Last administered on 11/22/19at 13:00; Start 11/22/19 at 13:00; Stop 11/22/19 at 13:05; Status DC Bupivacaine HCl (Sensorcaine-Mpf 0.25%) 10 ml 1X ONCE IJ Last administered on 11/22/19at 13:00; Start 11/22/19 at 13:00; Stop 11/22/19 at 13:05; Status DC Active Scripts Active Novolog Flexpen (Insulin Aspart) 100 Unit/1 Ml Insuln.pen 100 Unit SQ TID PRN PRN Reported Fluoxetine Hcl 20 Mg Capsule 20 Mg PO DAILY 90 Days Lantus Solostar (Insulin Glargine,Hum.rec.anlog) 100 Unit/1 Ml Insuln.pen 20 Unit SQ QHS Senokot-S Tablet (Sennosides/Docusate Sodium) 1 Each Tablet 1 Each PO PRN DAILY PRN Benadryl (Diphenhydramine Hcl) 25 Mg Capsule 25 Mg PO PRN QHS PRN Acetaminophen 500 Mg Tablet 500 Mg PO PRN Q6HRS PRN Spironolactone 25 Mg Tablet 25 Mg PO DAILY Colace (Docusate Sodium) 100 Mg Capsule 100 Mg PO PRN DAILY PRN Coreg (Carvedilol) 25 Mg Tablet 12.5 Mg PO BIDWMEALS Nitrostat (Nitroglycerin) 0.4 Mg Tab.subl 0.4 Mg SL PRN Q5MIN PRN Hydrocodone-Apap 7.5-325 (Hydrocodone Bit/Acetaminophen) 1 Tab Tablet 1 Tab PO PRN TID PRN Synthroid (Levothyroxine Sodium) 200 Mcg Tablet 200 Mcg PO DAILY Vitals/I & O Vital Sign - Last 24 Hours 11/26/19 11/26/19 11/26/19 11/26/19 10:43 11:59 15:59 17:42 Temp 98.1 98.4 98.1 98.4 Pulse 63 60 63 Resp 18 18 B/P (MAP) 120/46 (70) 149/56 (87) 120/46 Pulse Ox 95 94 O2 Delivery Room Air Room Air Room Air 11/26/19 11/26/19 11/26/19 11/26/19 19:00 20:20 20:22 21:22 Temp 98.1 98.1 Pulse 61 Resp 18 20 20 B/P (MAP) 128/54 (78) Pulse Ox 97 O2 Delivery Room Air Room Air Room Air Room Air 11/26/19 11/27/19 11/27/19 11/27/19 23:00 04:42 07:00 08:20 Temp 97.8 97.9 97.9 97.8 97.9 97.9 Pulse 62 60 59 59 Resp 18 16 19 B/P (MAP) 140/48 (78) 150/69 (96) 172/62 (98) 172/62 Pulse Ox 93 98 96 O2 Delivery Room Air Room Air Room Air PAWAN FLETCHER MD Nov 27, 2019 10:16
--- NOTE | 2019-11-27 10:24 | NUR ---
SW following. Discussed with RN, pt is ready to discharge to [facility] today. Insurance has approved. Awaiting discharge confirmation from doctor today. Addendum: 11/27/19 at 1341 by TIMOTHY QUESDAA Pt discharging to [facility] today at 1430. ANIA notified. Addendum: 11/27/19 at 1357 by TIMOTHY QUESADA Transportation time changed to 1545. ANIA notified.
[2019-11-27] MEDS: valACYclovir 500 MG TABLET. PO SCH ×2 (10:54→15:31)
[2019-11-27] MEDS: oxyCODONE/APAP 10/325 1 TAB TABLET PO PRN (10:56)
[2019-11-27 10:58] VITALS: BP 154/60
--- NOTE | 2019-11-27 13:44 | SNU/HH DC ---
DISCHARGE ORDERS DISCHARGE INFORMATION: FINAL DIAGNOSIS Problems Medical Problems: (1) Altered mental status Status: Acute (2) Hyperglycemia Status: Acute (3) Urinary tract infection Status: Acute CONDITION ON DISCHARGE: Stable CODE STATUS: Code Status: Full RESIDENTIAL: SNF STAY <30 DAYS: No HOSPICE: HOSPICE: No HOSPICE EVAL & TREAT: No LTAC: ADMIT TO LTAC: No POST DISCHARGE ORDERS: ACTIVITY ORDERS: No restrictions, Activity as tolerated WEIGHT BEARING STATUS: No restrictions DIET AFTER DISCHARGE: Cardiac WOUND/INCISION CARE: Keep wound/cast CDI TREATMENT/EQUIPMENT ORDERS: ADAPTIVE EQUIPMENT NEEDED: None Physical Therapy For: Evalulation/Treatment Occupational Therapy For: Evaluation/Treatment DISCHARGE MEDICATIONS: Home Meds Active Scripts Insulin Aspart (NOVOLOG FLEXPEN) 100 Unit/1 Ml Insuln.pen, 100 UNIT SQ TID PRN PRN for hyperglycemia, #900 UNITS Prov:JAYDE CLARK MD 04/04/14 Reported Medications Fluoxetine Hcl (FLUOXETINE HCL) 20 Mg Capsule, 20 MG PO DAILY for depression for 90 Days, #90 11/19/19 Insulin Glargine,Hum.rec.anlog (LANTUS SOLOSTAR) 100 Unit/1 Ml Insuln.pen, 20 UNIT SQ QHS for BS HIGH, #15 ML 5 Refills 05/28/19 Sennosides/Docusate Sodium (SENOKOT-S TABLET) 1 Each Tablet, 1 EACH PO PRN DAILY PRN for CONSTIPATION, TAB 05/28/19 Diphenhydramine Hcl (BENADRYL) 25 Mg Capsule, 25 MG PO PRN QHS PRN for INSOMNIA, CAP 05/28/19 Acetaminophen (ACETAMINOPHEN) 500 Mg Tablet, 500 MG PO PRN Q6HRS PRN for PAIN, TAB 05/28/19 Spironolactone (SPIRONOLACTONE) 25 Mg Tablet, 25 MG PO DAILY for HYPERTENSION,DIURETIC, TAB 05/28/19 Docusate Sodium (COLACE) 100 Mg Capsule, 100 MG PO PRN DAILY PRN for CONSTIPATION, CAP 05/28/19 Carvedilol (COREG) 25 Mg Tablet, 12.5 MG PO BIDWMEALS for CARDIAC, TAB 05/28/19 Nitroglycerin (NITROSTAT) 0.4 Mg Tab.subl, 0.4 MG SL PRN Q5MIN PRN for CHEST PAIN, BOTTLE 05/28/19 Hydrocodone Bit/Acetaminophen (HYDROCODONE-APAP 7.5-325 ) 1 Tab Tablet, 1 TAB PO PRN TID PRN for PAIN, TAB 0 Refills 05/28/19 Levothyroxine Sodium (SYNTHROID) 200 Mcg Tablet, 200 MCG PO DAILY 04/02/14 CHANDLER BLAKELY III DO Nov 27, 2019 13:44
--- NOTE | 2019-11-27 13:52 | PDOC ---
[facility] PROGRESS NOTE Chief Complaint Chief Complaint impression Left shoulder Bankart fracture status post steroid injection by Dr. Pan Acute encephalopathy UTI Urinary incontinence Morbid obesity BMI 50 - Lower back pain Bilateral knee pain Diabetes type 2 Hypertension Hyponatremia Hypomagnesemia Hypothyroid Rash 1/3 pain overall in her knees,low back,hip and shoulder area.slow to resolve History of Present Illness History of Present Illness Ms Kenney is a 74yo F w/ PMHx DM2, HLD, HTN, CAD s/p stenting who p/w 2 other family members due to confusion and hallucinations, mostly visual. The patient is aware of this and the confusion. She does note a few recent falls, though they were "soft". She c/o some dysuria as well as some mid lower back pain. She has previously been confused with UTIs per family. Labs significant for grossly abnormal UA, cultured and started on rocephin. She was also noted with Na of 128, glucose of 309, Mg 1.4, microcytic anemia, and underwent CXR and CT both of which were negative for acute pathology. EKG was NSR. 11/17: Overnight started feeling a bit better. This morning she lost IV access, now has a rash on her left hand and arm, vesicular, a bit painful. 11/18 Shingles feeling better. She just wishes to rest today. Still very weak. No CP or SOB 11/19: Left shoulder hurting, shingles better. No cough. She is tearful, thinks she needs her prozac. Still grieving over the loss of her in July and trying to evict her daughter in law. 1620 Patient seen and examined She is at her baseline so we'll discharge to senior care 11/21/19 Patient seen and examined Chart reviewed Discussed with RN 11/22/19 Patient seen and examined Chart reviewed Discussed with RN Called Dr. Pan he just arrived as well I reviewed the chart with her daughter and then talked to her entire family is well [id number] Patient seen and examined Chart reviewed I helped Dr. Pan inject her left shoulder yesterday with steroids [id number] Patient seen and examined Her left shoulder feels much better after the injections Discussed with RN and she is here examined the patient with me Chart reviewed Plan is to get her to senior care on Wednesday [id number] Patient seen and examined She feels better Basically or just waiting for senior care placement Chart reviewed discussed with RN Vitals/I&O Vitals/I&O: Vital Signs Date Time Temp Pulse Resp B/P (MAP) Pulse Ox O2 Delivery O2 Flow Rate FiO2 11/27/19 12:51 Room Air 11/27/19 10:58 97.8 62 19 154/60 (91) 95 97.8 Physical Exam General: Alert, Oriented X3, Cooperative, No acute distress, Other Heart: Regular rate, Normal S1, Normal S2 Lungs: Clear Abdomen: Normal bowel sounds, Soft, No tenderness, No hepatosplenomegaly, No masses Extremities: No clubbing, Other (gross alignment of the shoulder is normal with no evidence of current dislocation. There is no swelling around the shoulder. There is no ecchymosis. She has active elevation and abduction to at least 90degrees, without pain or instability. I was able to get her gently into the slightly abducted externally rotated position without evidence of instability or apprehension. Her rotator cuff strength is good, without any obvious drop arm sign, and I don't think she has a cuff tear. She does have positive impingement signs on examination. The distal neurovascular function in the hand and arm are normal.) Skin: No rashes, No breakdown, No significant lesion Labs Labs: Laboratory Tests Test 11/26/19 16:43 11/26/19 20:20 11/27/19 04:20 11/27/19 04:25 Glucose (Fingerstick) 172 mg/dL (70-99) 198 mg/dL (70-99) Sodium Level 137 mmol/L (136-145) Potassium Level 4.4 mmol/L (3.5-5.1) Chloride Level 101 mmol/L (98-107) Carbon Dioxide Level 30 mmol/L (21-32) Anion Gap 6 (6-14) Blood Urea Nitrogen 23 mg/dL (7-20) Creatinine 1.1 mg/dL (0.6-1.0) Estimated GFR (Cockcroft-Gault) 48.3 Glucose Level 195 mg/dL (70-99) Calcium Level 9.5 mg/dL (8.5-10.1) White Blood Count 9.8 x10^3/uL (4.0-11.0) Red Blood Count 4.51 x10^6/uL (3.50-5.40) Hemoglobin 11.0 g/dL (12.0-15.5) Hematocrit 34.8 % (36.0-47.0) Mean Corpuscular Volume 77 fL (79-100) Mean Corpuscular Hemoglobin 25 pg (25-35) Mean Corpuscular Hemoglobin Concent 32 g/dL (31-37) Red Cell Distribution Width 17.4 % (11.5-14.5) Platelet Count 258 x10^3/uL (140-400) Neutrophils (%) (Auto) 49 % (31-73) Lymphocytes (%) (Auto) 43 % (24-48) Monocytes (%) (Auto) 6 % (0-9) Eosinophils (%) (Auto) 2 % (0-3) Basophils (%) (Auto) 1 % (0-3) Neutrophils # (Auto) 4.8 x10^3/uL (1.8-7.7) Lymphocytes # (Auto) 4.2 x10^3/uL (1.0-4.8) Monocytes # (Auto) 0.6 x10^3/uL (0.0-1.1) Eosinophils # (Auto) 0.2 x10^3/uL (0.0-0.7) Basophils # (Auto) 0.1 x10^3/uL (0.0-0.2) Test 11/27/19 07:57 11/27/19 11:25 Glucose (Fingerstick) 194 mg/dL (70-99) 199 mg/dL (70-99) Assessment and Plan Assessmemt and Plan Problems Medical Problems: (1) Altered mental status Status: Acute (2) Hyperglycemia Status: Acute (3) Urinary tract infection Status: Acute Discharge Comment Review of Relevant I have reviewed the following items jina (where applicable) has been applied. CHANDLER BLAKELY III DO Nov 27, 2019 13:51
[2019-11-27 15:00] VITALS: BP 159/62
--- NOTE | 2019-11-27 16:48 | NUR ---
Discharge Note: Patient was discharged/transferred to [facility]. Patient agreeable with discharge plans. Patient did not have an IV to discontinue. Called [facility] and gave report via phone to ANIA Licea. Patient transferred via wheelchair van with all personal belongings.
== END 2019-11-27 16:54 | DRG 689 ==
LOC: ER 12:39 → 5 SOUTH 16:13
PROVIDERS: ADMIT Internal Medicine; ATTEND Internal Medicine
PROC: 3E0333Z Introduction of Anti-inflammatory into Peripheral Vein, Percutaneous Approach (ICD-10-PCS; principal; 2019-11-23)
DX: N39.0 Urinary tract infection, site not specified (principal); G92 Toxic encephalopathy; E87.1 Hypo-osmolality and hyponatremia; S42.92XA Fracture of left shoulder girdle, part unspecified, initial encounter for closed fracture; Z68.42 Body mass index [BMI] 45.0-49.9, adult; E78.00 Pure hypercholesterolemia, unspecified; I10 Essential (primary) hypertension; E03.9 Hypothyroidism, unspecified; E66.01 Morbid (severe) obesity due to excess calories; E83.42 Hypomagnesemia; I25.10 Atherosclerotic heart disease of native coronary artery without angina pectoris; B02.9 Zoster without complications; E78.5 Hyperlipidemia, unspecified; G89.29 Other chronic pain; M17.0 Bilateral primary osteoarthritis of knee; E11.42 Type 2 diabetes mellitus with diabetic polyneuropathy; M47.816 Spondylosis without myelopathy or radiculopathy, lumbar region; M70.62 Trochanteric bursitis, left hip; M70.61 Trochanteric bursitis, right hip; R32 Unspecified urinary incontinence; M77.9 Enthesopathy, unspecified; D50.9 Iron deficiency anemia, unspecified; E86.1 Hypovolemia; I25.2 Old myocardial infarction; Z95.5 Presence of coronary angioplasty implant and graft; Z88.8 Allergy status to other drugs, medicaments and biological substances; Y93.89 Activity, other specified; Z71.89 Other specified counseling; Y92.89 Other specified places as the place of occurrence of the external cause; Y99.8 Other external cause status; Z90.49 Acquired absence of other specified parts of digestive tract; Z83.3 Family history of diabetes mellitus; Z82.49 Family history of ischemic heart disease and other diseases of the circulatory system
CPT/HCPCS: 36415; 70450; 71045; 72100; 73030; 80048; 80053; 80307; 81001; 82553; 82607; 82962; 83540; 83550; 83690; 83735; 83880; 84443; 84484; 85025; 87086; 93005; 96361; 96374; J0696; J1030; J1650; J1815; J3420; J3475; J3490; J7030; Q0162; 97110; 97530; 97535; 99285-25; G0378

== ENCOUNTER 2020-06-08 15:40 | Inpatient (IN) | payer BC, MEDICARE ==
[~2020-06-08] VITALS: Ht 170.2 cm; Wt 136.5 kg
[~2020-06-08 15:40] MED LIST changes: -ASPI-612 PO; +ASPI-886 PO; +FLUO20CA20 PO
[2020-06-08] MEDS ORDERED: HYDR-3164 PO (16:12)
[2020-06-08] MEDS ORDERED: CLIN300C8 PO (16:12)
--- NOTE | 2020-06-08 16:13 | PHYS DOC ---
Past Medical History Past Medical History: Diabetes-Type II, High Cholesterol, Hypertension, [place], Other Additional Past Medical Histor: HEART STENTS Past Surgical History: Appendectomy, Cholecystectomy, Tonsillectomy Additional Past Surgical Histo: CARDIAC STENTS Smoking Status: Former Smoker Alcohol Use: Rarely Drug Use: None General Adult EDM: Chief Complaint: FACE PAIN HPI: HPI: Dentures but she has Patient is a 75-year-old female who presents with a swollen right jaw. She states this is been progressive over the last several days. She states in the past she has had dental infections that have caused similar symptoms. She has upper dentures but her lower teeth are [employer] no fever no difficulty swallowing no difficulty chewing. Once the daughter arrived she elaborated on the history a little bit more. According to family the patient has been so weak over the last few days she has been unable to get up out of bed even to do activities of daily living. Up until just several days ago she had been getting around with out difficulty. The daughter states that this occasionally happens when she develops a urinary tract infection. [] Review of Systems: Review of Systems: Constitutional: Denies fever or chills. [] Eyes: Denies change in visual acuity. [] HENT: Per HPI. [] Respiratory: Denies cough or shortness of breath. [] Cardiovascular: Denies chest pain or edema. [] GI: Denies abdominal pain, nausea, vomiting, bloody stools or diarrhea. [] : Denies dysuria. [] Musculoskeletal: Denies back pain or joint pain. [] Integument: Denies rash. [] Neurologic: Denies headache, focal weakness or sensory changes. [] Endocrine: Denies polyuria or polydipsia. [] Lymphatic: Denies swollen glands. [] Psychiatric: Denies depression or anxiety. [] Heart Score: Risk Factors: Risk Factors: DM, Current or recent (<one month) smoker, HTN, HLP, family history of CAD, obesity. Risk Scores: Score 0 - 3: 2.5% MACE over next 6 weeks - Discharge Home Score 4 - 6: 20.3% MACE over next 6 weeks - Admit for Clinical Observation Score 7 - 10: 72.7% MACE over next 6 weeks - Early Invasive Strategies Current Medications: Current Medications Medications (Trade) Dose Ordered Sig/Natasha Start Time Stop Time Status Last Admin Dose Admin Clindamycin HCl (Cleocin) 600 mg 1X ONCE 06/08/20 16:15 06/08/20 16:16 UNV Oxycodone/ Acetaminophen (Percocet 5/325) 2 tab 1X ONCE 06/08/20 16:15 06/08/20 16:16 UNV Allergies: Allergies: Allergies Coded Allergies Type Severity Reaction Last Updated Verified hydrochlorothiazide Allergy Intermediate Swelling 04/03/14 Yes valsartan Allergy Intermediate Swelling 04/03/14 Yes I S O L A T I O N *CONTACT* Allergy Unknown 12/07/19 Yes Physical Exam: PE: Constitutional: Well developed, well nourished, no acute distress, non-toxic appearance. [] HENT: Normocephalic, atraumatic, bilateral external ears normal, right lower jaw is swollen no obvious abscess. [] Eyes: PERRLA, EOMI, conjunctiva normal, no discharge. [] Neck: Normal range of motion, no tenderness, supple, no stridor. [] Cardiovascular:Heart rate regular rhythm, no murmur [] Lungs & Thorax: Bilateral breath sounds clear to auscultation [] Abdomen: Bowel sounds normal, soft, no tenderness, no masses, no pulsatile masses. [] Skin: Warm, dry, no erythema, no rash. [] Back: No tenderness, no CVA tenderness. [] Extremities: No tenderness, no cyanosis, no clubbing, ROM intact, no edema. [] Neurologic: Alert and oriented X 3, normal motor function, normal sensory function, no focal deficits noted. [] Psychologic: Affect normal, judgement normal, mood normal. [] Current Patient Data: Vital Signs: Vital Signs Date Time Temp Pulse Resp B/P (MAP) Pulse Ox O2 Delivery O2 Flow Rate FiO2 06/08/20 15:54 98.4 105 16 119/53 (75) 97 Room Air 98.4 EKG: EKG: [] Radiology/Procedures: Radiology/Procedures: [] Course & Med Decision Making: Course & Med Decision Making Pertinent Labs and Imaging studies reviewed. (See chart for details) [ED course: Evaluation reveals a 75-year-old female with a swollen right jaw likely related to infected dental caries. Initially she was given clindamycin and some pain medicine and the plan was to discharge her home. However, family came and gave a little bit more history stating that she was weak and acting like she had a urinary tract infection. Therefore, we backtracked check some labs including a urinalysis which in fact did show a urinary tract infection. She was then given IV fluids and IV Rocephin. Given the fact that family stated she was too weak to perform her activities of daily living we went ahead and talk to the hospitalist and admitted her for IV fluids and antibiotics.] Dragon Disclaimer: Dragon Disclaimer: This electronic medical record was generated, in whole or in part, using a voice recognition dictation system. Departure Departure Impression: Primary Impression: Urinary tract infection Qualified Codes: N10 - Acute pyelonephritis Additional Impressions: Generalized weakness Dental infection Disposition: ADMITTED INPATIENT Admitting Physician: JIA Condition: GUARDED Referrals: RYAN ALY MD (PCP) Justicifation of Admission Dx: Justifications for Admission: Justification of Admission Dx: RUBIA Patel DO Jun 08, 2020 16:12
[2020-06-08] MEDS ORDERED: CLINDAMYCIN HCL 150 MG CAPSULE. PO ONE (16:15)
[2020-06-08] MEDS ORDERED: oxyCODONE/APAP 5/325 1 TAB TABLET PO ONE (16:15)
[2020-06-08 16:30] LABS: BASO # 0.1 x10^3/uL (0.0-0.2); BASO % 0 % (0-3); EOS # 0.1 x10^3/uL (0.0-0.7); EOS % 1 % (0-3); HEMATOCRIT 35.5 % (36.0-47.0); HEMOGLOBIN 11.5 g/dL (12.0-15.5); LYMPH # 3.5 x10^3/uL (1.0-4.8); LYMPH % 20 % (24-48); MEAN CORPUSCULAR HEMOGLOBIN 24 pg (25-35); MEAN CORPUSCULAR HGB CONC 33 g/dL (31-37); MEAN CORPUSCULAR VOLUME 75 fL (79-100); MONO # 1.4 x10^3/uL (0.0-1.1); MONO % 8 % (0-9); NEUT # 12.4 x10^3/uL (1.8-7.7); NEUT % 71 % (31-73); PLATELET COUNT 317 x10^3/uL (140-400); RED BLOOD COUNT 4.73 x10^6/uL (3.50-5.40); RED CELL DISTRIBUTION WIDTH 17.6 % (11.5-14.5); WHITE BLOOD COUNT 17.4 x10^3/uL (4.0-11.0)
[2020-06-08] MEDS ORDERED: IV NORMAL SALINE 1000ML BAG 1,000 ML IV ONE ×2 (16:30→18:00)
[2020-06-08 16:51] LABS: CALCIUM 9.4 mg/dL (8.5-10.1); CREATININE 1.2 mg/dL (0.6-1.0); GFR 43.6; POTASSIUM 4.3 mmol/L (3.5-5.1)
[2020-06-08 16:57] LABS: ALBUMIN 3.2 g/dL (3.4-5.0); ALBUMIN/GLOBULIN RATIO 0.7 (1.0-1.7); TOTAL BILIRUBIN 0.6 mg/dL (0.2-1.0); TOTAL PROTEIN 7.8 g/dL (6.4-8.2)
[2020-06-08 17:06] LABS: BILIRUBIN,URINE SMALL (NEG); CLARITY,URINE CLOUDY; NITRITE,URINE NEGATIVE (NEG); PH,URINE 5.5 (<5.0-8.0); PROTEIN,URINE 100 mg/dL (NEG-TRACE)
[2020-06-08 17:19] LABS: COLOR,URINE YELLOW
[2020-06-08 17:20] LABS: SQUAMOUS EPITHELIAL CELL,UR MOD /LPF
[2020-06-08 17:21] LABS: BACTERIA,URINE 0 /HPF (0-FEW); RBC,URINE 20-40 /HPF (0-2); WBC,URINE TNTC /HPF (0-4)
[2020-06-08] MEDS ORDERED: ONDANSETRON PF 4 MG/2 ML VIAL. IV PRN (17:30)
[2020-06-08] MEDS ORDERED: ACETAMINOPHEN 325 MG TABLET. PO PRN (17:30)
[2020-06-08] MEDS ORDERED: cefTRIAXone IV Push 1 GM VIAL. IVP ONE (17:30)
--- NOTE | 2020-06-08 17:45 | PDOC1 ---
History and Physical Date of Admission: Date of Admission DATE: 06/08/20 TIME: 17:44 History of Present Illness: HPI: 75-year-old female with past medical history of diabetes, dyslipidemia, hypertension, gastric surgery for weight lossMason stent, who presents with initially a swollen right jaw. Patient states she has had previous dental infections that have caused similar symptoms. She has taken antibiotics in the past and this has resolved the issue. Daughter had explained to the ED physician that patient gets weak whenever there is a urinary tract infection. Patient states also that she has been feeling weak for the past few days and she is unable to get out of bed for her ADLs. Upon further questioning she states that she does have increased frequency and dysuria. Specifically she does have burning upon urination. She denies fevers, shortness of breath, chest pain, hematuria, or diarrhea Past Medical/Surgical History: PMH/PSH: Past Medical History: Diabetes-Type II, High Cholesterol, Hypertension, [place] Past Surgical History: Appendectomy, Cholecystectomy, Tonsillectomy, history of gastric surgery for weight loss known as Homero stent Allergies: Allergies: Coded Allergies: hydrochlorothiazide (Verified Allergy, Intermediate, Swelling, 04/03/14) valsartan (Verified Allergy, Intermediate, Swelling, 04/03/14) I S O L A T I O N *CONTACT* (Verified Allergy, Unknown, 12/07/19) vre Family History: Family History: None Social History: Social History: Smoking Status: Former Smoker Alcohol Use: Rarely Drug Use: None Current Medications: Current Medications Current Medications Clindamycin HCl (Cleocin) 600 mg 1X ONCE PO Last administered on 06/08/20at 16:59; Start 06/08/20 at 16:15; Stop 06/08/20 at 16:16; Status DC Oxycodone/ Acetaminophen (Percocet 5/325) 2 tab 1X ONCE PO Last administered on 06/08/20at 16:59; Start 06/08/20 at 16:15; Stop 06/08/20 at 16:16; Status DC Sodium Chloride 1,000 ml @ 1,000 mls/hr 1X ONCE IV Last administered on 06/08/20at 16:44; Start 06/08/20 at 16:30; Stop 06/08/20 at 17:29; Status DC Ceftriaxone Sodium (Rocephin) 1 gm 1X ONCE IVP ; Start 06/08/20 at 17:30; Stop 06/08/20 at 17:32; Status DC Ondansetron HCl (Zofran) 4 mg PRN Q8HRS PRN IV NAUSEA/VOMITING; Start 06/08/20 at 17:30; Stop 06/09/20 at 17:29 Sodium Chloride 1,000 ml @ 125 mls/hr Q8H IV ; Start 06/08/20 at 17:27; Stop 06/09/20 at 17:26 Acetaminophen (Tylenol) 650 mg PRN Q4HRS PRN PO FEVER > 100.3'F; Start 06/08/20 at 17:30; Stop 06/09/20 at 17:29 Active Scripts Active [place] 5-325 Tablet (Acetaminophen/Hydrocodone Bitart) 1 Each Tablet 1 Tab PO PRN Q6HRS PRN Clindamycin Hcl 300 Mg Capsule 1 Cap PO TID Novolog Flexpen (Insulin Aspart) 100 Unit/1 Ml Insuln.pen 100 Unit SQ TID PRN PRN Reported Fluoxetine Hcl 20 Mg Capsule 20 Mg PO DAILY 90 Days Lantus Solostar (Insulin Glargine,Hum.rec.anlog) 100 Unit/1 Ml Insuln.pen 20 Unit SQ QHS Senokot-S Tablet (Sennosides/Docusate Sodium) 1 Each Tablet 1 Each PO PRN DAILY PRN Benadryl (Diphenhydramine Hcl) 25 Mg Capsule 25 Mg PO PRN QHS PRN Acetaminophen 500 Mg Tablet 500 Mg PO PRN Q6HRS PRN Spironolactone 25 Mg Tablet 25 Mg PO DAILY Colace (Docusate Sodium) 100 Mg Capsule 100 Mg PO PRN DAILY PRN Coreg (Carvedilol) 25 Mg Tablet 12.5 Mg PO BIDWMEALS Nitrostat (Nitroglycerin) 0.4 Mg Tab.subl 0.4 Mg SL PRN Q5MIN PRN Hydrocodone-Apap 7.5-325 (Hydrocodone Bit/Acetaminophen) 1 Tab Tablet 1 Tab PO PRN TID PRN Synthroid (Levothyroxine Sodium) 200 Mcg Tablet 200 Mcg PO DAILY ROS: Review of Systems Review of System REVIEW OF SYSTEMS: GENERAL: Denies weakness SKIN: No bruising, hair changes or rashes. EYES: No blurred, double or loss of vision. NOSE AND THROAT: No history of nosebleeds, hoarseness or sore throat. HEART: No history of palpitations, chest pain or shortness of breath on exertion. LUNGS: Denies cough, hemoptysis, wheezing or shortness of breath. GASTROINTESTINAL: Denies changes in appetite, nausea, vomiting, diarrhea or constipation. GENITOURINARY: No history of frequency, urgency, hesitancy or nocturia. NEUROLOGIC: Denies history of numbness, tingling, or tremor. PSYCHIATRIC: No history of panic, anxiety or depression. ENDOCRINE: No history of heat or cold intolerance, polyuria or polydipsia. EXTREMITIES: Denies joint pain, pain on walking or stiffness. Physical Exam: Vital Signs: Vital Signs Date Time Temp Pulse Resp B/P (MAP) Pulse Ox O2 Delivery O2 Flow Rate FiO2 06/08/20 15:54 98.4 105 16 119/53 (75) 97 Room Air 98.4 Physcial Exam: GEN: No apparent distress. Alert and oriented HEENT: Normal cephalic, atraumatic, external auditory canals are patent EYES: Extraocular muscles are intact, pupil are equally round and reactive to light and accommodation MUSCULOSKELETAL: Well developed , well nourished, good range of motion ENDOCRINE: No thyromegaly was palpated LYMPHATICS: No cervical chain or axillary nodes were noted HEMATOPOIETIC: No bruising NECK: Supple, no JVD, no thyromegaly was noted LUNGS: Clear to auscultation in all lung mulligan without rhonchi or wheezing HEART: RRR, S!, S2 present. Peripheral pulses intact, no obvious murmurs noted ABDOMEN: Soft, nontender. Positive bowel sounds, no organomegaly, normal bowel sounds EXTREMITIES: Without clubbing, cyanosis, or edema. Pedal pulses intact. Negative Homans sign NEUROLOGIC: Normal speech and tone. A&O x 3, moves all extremities, no obvious focal deficits PSYCHIATRIC: Normal affect, normal mood. Stable SKIN: No ulcerations or rashes, good skin turgor, no jaundice VASCULAR: Good capillary refill, neurovascular bundle appears to be intact Labs: Labs: Laboratory Tests Test 06/08/20 16:11 06/08/20 16:55 White Blood Count 17.4 x10^3/uL (4.0-11.0) Red Blood Count 4.73 x10^6/uL (3.50-5.40) Hemoglobin 11.5 g/dL (12.0-15.5) Hematocrit 35.5 % (36.0-47.0) Mean Corpuscular Volume 75 fL (79-100) Mean Corpuscular Hemoglobin 24 pg (25-35) Mean Corpuscular Hemoglobin Concent 33 g/dL (31-37) Red Cell Distribution Width 17.6 % (11.5-14.5) Platelet Count 317 x10^3/uL (140-400) Neutrophils (%) (Auto) 71 % (31-73) Lymphocytes (%) (Auto) 20 % (24-48) Monocytes (%) (Auto) 8 % (0-9) Eosinophils (%) (Auto) 1 % (0-3) Basophils (%) (Auto) 0 % (0-3) Neutrophils # (Auto) 12.4 x10^3/uL (1.8-7.7) Lymphocytes # (Auto) 3.5 x10^3/uL (1.0-4.8) Monocytes # (Auto) 1.4 x10^3/uL (0.0-1.1) Eosinophils # (Auto) 0.1 x10^3/uL (0.0-0.7) Basophils # (Auto) 0.1 x10^3/uL (0.0-0.2) Sodium Level 136 mmol/L (136-145) Potassium Level 4.3 mmol/L (3.5-5.1) Chloride Level 100 mmol/L (98-107) Carbon Dioxide Level 27 mmol/L (21-32) Anion Gap 9 (6-14) Blood Urea Nitrogen 19 mg/dL (7-20) Creatinine 1.2 mg/dL (0.6-1.0) Estimated GFR (Cockcroft-Gault) 43.6 BUN/Creatinine Ratio 16 (6-20) Glucose Level 120 mg/dL (70-99) Calcium Level 9.4 mg/dL (8.5-10.1) Total Bilirubin 0.6 mg/dL (0.2-1.0) Aspartate Amino Transf (AST/SGOT) 17 U/L (15-37) Alanine Aminotransferase (ALT/SGPT) 17 U/L (14-59) Alkaline Phosphatase 123 U/L (46-116) Troponin I Quantitative 0.020 ng/mL (0.000-0.055) Total Protein 7.8 g/dL (6.4-8.2) Albumin 3.2 g/dL (3.4-5.0) Albumin/Globulin Ratio 0.7 (1.0-1.7) Thyroid Stimulating Hormone (TSH) 2.495 uIU/mL (0.358-3.74) Urine Collection Type U cath Urine Color Yellow Urine Clarity Cloudy Urine pH 5.5 (<5.0-8.0) Urine Specific [place] >=1.030 (1.000-1.030) Urine Protein 100 mg/dL (NEG-TRACE) Urine Glucose (UA) Negative mg/dL (NEG) Urine Ketones (Stick) Trace mg/dL (NEG) Urine Blood Large (NEG) Urine Nitrite Negative (NEG) Urine Bilirubin Small (NEG) Urine Urobilinogen Dipstick 1.0 mg/dL (0.2 mg/dL) Urine Leukocyte Esterase Large (NEG) Urine RBC 20-40 /HPF (0-2) Urine WBC Tntc /HPF (0-4) Urine Squamous Epithelial Cells Mod /LPF Urine Bacteria 0 /HPF (0-FEW) Laboratory Tests Test 06/08/20 16:11 06/08/20 16:55 White Blood Count 17.4 x10^3/uL (4.0-11.0) Red Blood Count 4.73 x10^6/uL (3.50-5.40) Hemoglobin 11.5 g/dL (12.0-15.5) Hematocrit 35.5 % (36.0-47.0) Mean Corpuscular Volume 75 fL (79-100) Mean Corpuscular Hemoglobin 24 pg (25-35) Mean Corpuscular Hemoglobin Concent 33 g/dL (31-37) Red Cell Distribution Width 17.6 % (11.5-14.5) Platelet Count 317 x10^3/uL (140-400) Neutrophils (%) (Auto) 71 % (31-73) Lymphocytes (%) (Auto) 20 % (24-48) Monocytes (%) (Auto) 8 % (0-9) Eosinophils (%) (Auto) 1 % (0-3) Basophils (%) (Auto) 0 % (0-3) Neutrophils # (Auto) 12.4 x10^3/uL (1.8-7.7) Lymphocytes # (Auto) 3.5 x10^3/uL (1.0-4.8) Monocytes # (Auto) 1.4 x10^3/uL (0.0-1.1) Eosinophils # (Auto) 0.1 x10^3/uL (0.0-0.7) Basophils # (Auto) 0.1 x10^3/uL (0.0-0.2) Sodium Level 136 mmol/L (136-145) Potassium Level 4.3 mmol/L (3.5-5.1) Chloride Level 100 mmol/L (98-107) Carbon Dioxide Level 27 mmol/L (21-32) Anion Gap 9 (6-14) Blood Urea Nitrogen 19 mg/dL (7-20) Creatinine 1.2 mg/dL (0.6-1.0) Estimated GFR (Cockcroft-Gault) 43.6 BUN/Creatinine Ratio 16 (6-20) Glucose Level 120 mg/dL (70-99) Calcium Level 9.4 mg/dL (8.5-10.1) Total Bilirubin 0.6 mg/dL (0.2-1.0) Aspartate Amino Transf (AST/SGOT) 17 U/L (15-37) Alanine Aminotransferase (ALT/SGPT) 17 U/L (14-59) Alkaline Phosphatase 123 U/L (46-116) Troponin I Quantitative 0.020 ng/mL (0.000-0.055) Total Protein 7.8 g/dL (6.4-8.2) Albumin 3.2 g/dL (3.4-5.0) Albumin/Globulin Ratio 0.7 (1.0-1.7) Thyroid Stimulating Hormone (TSH) 2.495 uIU/mL (0.358-3.74) Urine Collection Type U cath Urine Color Yellow Urine Clarity Cloudy Urine pH 5.5 (<5.0-8.0) Urine Specific [place] >=1.030 (1.000-1.030) Urine Protein 100 mg/dL (NEG-TRACE) Urine Glucose (UA) Negative mg/dL (NEG) Urine Ketones (Stick) Trace mg/dL (NEG) Urine Blood Large (NEG) Urine Nitrite Negative (NEG) Urine Bilirubin Small (NEG) Urine Urobilinogen Dipstick 1.0 mg/dL (0.2 mg/dL) Urine Leukocyte Esterase Large (NEG) Urine RBC 20-40 /HPF (0-2) Urine WBC Tntc /HPF (0-4) Urine Squamous Epithelial Cells Mod /LPF Urine Bacteria 0 /HPF (0-FEW) Assessment/Plan Assessment/Plan Acute cystitis Acute reactive parotiditis versus dental infection Elevated alkaline phosphatase Acute renal failurevasomotor nephropathy Diabetes Dyslipidemia Hypertension Admit to the medicine Continue IV rocephin pending U cx Continue IVF pending Panorex pending dental consult avoid nephrotoxic agents continue ADA diet RISS Heparin DVT prophy FULL code Dispo: pending U cx and home on discharge Justicifation of Admission Dx: Justifications for Admission: Justification of Admission Dx: No GAEL HUNT MD Jun 08, 2020 17:45
[2020-06-08] MEDS: IV NORMAL SALINE 1000ML BAG 1,000 ML IV SCH (17:49)
[2020-06-08 19:00] VITALS: BP 94/31
--- NOTE | 2020-06-08 19:00 | NUR ---
The patient, ROSAURA MERAZ, 75 y/o, F admitted by GAEL HUNT MD, was given written information regarding hospital policies, unit procedures and contact persons. Valuables were checked and left with her.
--- NOTE | 2020-06-08 21:44 | RAD ---
Exam: CT maxillofacial without contrast INDICATION: Right jaw pain, dental infection TECHNIQUE: Sequential axial images through the face obtained without IV contrast. Sagittal and coronal reformatted images were reconstructed from the axial data and reviewed. Comparisons: None FINDINGS: Visualized cranial structures are unremarkable. Globes and intraorbital contents are normal. Visual is portions of the paranasal sinuses and mastoid air cells are well-pneumatized. Extensive soft tissue swelling overlying the right mandible. No discrete fluid collection is identified. Extensive dental caries are seen. Maxilla is edentulous. Small amount of edema is seen in the right parapharyngeal fat. No discrete periapical lucency is seen. IMPRESSION: Extensive soft tissue edema and inflammation overlying the right mandible without focal fluid collection identified. Exposure: One or more of the following in the visualized dose reduction techniques were utilized for this examination: 1. Automated exposure control 2. Adjustment of the MA and/or KV according to patient size 3. Use of iterative of reconstructive technique Electronically signed by: Andrés Doran MD (06/08/2020 9:41 PM) [id number]
[2020-06-08] MEDS: HEPARIN for SUB-Q USE 5,000 UNIT/ML VIAL. SQ SCH (22:34)
[2020-06-08 23:00] VITALS: BP 124/51
[2020-06-09 03:00] VITALS: BP 161/68
[2020-06-09] MEDS: IV NORMAL SALINE 1000ML BAG 1,000 ML IV SCH ×2 (03:25→10:33)
[2020-06-09 03:49] LABS: BASO # 0.1 x10^3/uL (0.0-0.2); BASO % 1 % (0-3); EOS # 0.1 x10^3/uL (0.0-0.7); EOS % 1 % (0-3); HEMATOCRIT 31.9 % (36.0-47.0); HEMOGLOBIN 10.3 g/dL (12.0-15.5); LYMPH # 3.2 x10^3/uL (1.0-4.8); LYMPH % 24 % (24-48); MEAN CORPUSCULAR HEMOGLOBIN 25 pg (25-35); MEAN CORPUSCULAR HGB CONC 32 g/dL (31-37); MEAN CORPUSCULAR VOLUME 76 fL (79-100); MONO % 8 % (0-9); NEUT # 8.8 x10^3/uL (1.8-7.7); NEUT % 67 % (31-73); PLATELET COUNT 255 x10^3/uL (140-400); RED CELL DISTRIBUTION WIDTH 17.7 % (11.5-14.5); WHITE BLOOD COUNT 13.1 x10^3/uL (4.0-11.0)
[2020-06-09 05:00] LABS: ALBUMIN 2.7 g/dL (3.4-5.0); ALBUMIN/GLOBULIN RATIO 0.7 (1.0-1.7); CALCIUM 8.7 mg/dL (8.5-10.1); CREATININE 1.3 mg/dL (0.6-1.0); GFR 39.7; POTASSIUM 4.5 mmol/L (3.5-5.1); TOTAL BILIRUBIN 0.4 mg/dL (0.2-1.0); TOTAL PROTEIN 6.4 g/dL (6.4-8.2)
[2020-06-09 07:00] VITALS: BP 162/62
[2020-06-09] MEDS ORDERED: diphenhydrAMINE HCL 25 MG CAPSULE PO PRN (08:45)
[2020-06-09] MEDS ORDERED: NITROGLYCERIN SUBLINGUAL 0.4 MG BOTTLE OF 25. SL PRN (08:45)
[2020-06-09] MEDS ORDERED: SENNOSIDES/DOCUSATE 8.6/50MG TABLET. PO PRN (08:45)
--- NOTE | 2020-06-09 10:09 | NUR ---
IP: Pt admitted with a UTI. 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 Pt to be in contact precautions until urine culture verified.
[2020-06-09] MEDS: FLUoxetine HCL 20 MG CAPSULE PO SCH (10:31)
[2020-06-09] MEDS: SPIRONOLACTONE 25 MG TABLET PO SCH (10:31)
[2020-06-09] MEDS: LEVOTHYROXINE 100 MCG TABLET PO SCH (10:32)
[2020-06-09] MEDS: CARVEDILOL 12.5 MG TABLET. PO SCH ×2 (10:32→17:30)
[2020-06-09] MEDS: HEPARIN for SUB-Q USE 5,000 UNIT/ML VIAL. SQ SCH ×2 (10:39→21:47)
[2020-06-09 11:00] VITALS: BP 117/54
--- NOTE | 2020-06-09 11:13 | PDOC ---
PROGRESS NOTES History of Present Illness History of Present Illness IMPRESSION Acute cystitis Acute reactive dental infection Extensive soft tissue edema and inflammation overlying the right mandible without focal fluid collection identified. Elevated alkaline phosphatase Acute renal failurevasomotor nephropathy Diabetes Dyslipidemia Hypertension PLAN Admit to the medicine CONSULT ID pending U cx Continue IVF oral surgery consult pending avoid nephrotoxic agents continue ADA diet RISS Heparin DVT prophy FULL code iv Unasyn and Zyvox D/W RN Justicifation of Admission Dx: Justicifation of Admission Dx: Justifications for Admission: Justification of Admission Dx: No Vitals Vitals Vital Signs Date Time Temp Pulse Resp B/P (MAP) Pulse Ox O2 Delivery O2 Flow Rate FiO2 06/09/20 10:32 76 162/62 06/09/20 07:00 98.5 16 95 Room Air 98.5 Physical Exam Physical Exam GEN: No apparent distress. Alert and oriented HEENT: Normal cephalic, atraumatic, external auditory canals are patent EYES: Extraocular muscles are intact, pupil are equally round and reactive to light and accommodation MUSCULOSKELETAL: Well developed , well nourished, good range of motion ENDOCRINE: No thyromegaly was palpated LYMPHATICS: No cervical chain or axillary nodes were noted HEMATOPOIETIC: No bruising NECK: Supple, no JVD, no thyromegaly was noted LUNGS: Clear to auscultation in all lung mulligan without rhonchi or wheezing HEART: RRR, S!, S2 present. Peripheral pulses intact, no obvious murmurs noted ABDOMEN: Soft, nontender. Positive bowel sounds, no organomegaly, normal bowel sounds EXTREMITIES: Without clubbing, cyanosis, or edema. Pedal pulses intact. Negative Homans sign NEUROLOGIC: Normal speech and tone. A&O x 3, moves all extremities, no obvious focal deficits PSYCHIATRIC: Normal affect, normal mood. Stable SKIN: No ulcerations or rashes, good skin turgor, no jaundice VASCULAR: Good capillary refill, neurovascular bundle appears to be intact General: Alert, Oriented X3, Cooperative, mild distress Heart: Regular rate, Normal S1, Normal S2 Lungs: Clear Abdomen: Normal bowel sounds, Soft Extremities: No cyanosis Labs LABS Exam: CT maxillofacial without contrast INDICATION: Right jaw pain, dental infection TECHNIQUE: Sequential axial images through the face obtained without IV contrast. Sagittal and coronal reformatted images were reconstructed from the axial data and reviewed. Comparisons: None FINDINGS: Visualized cranial structures are unremarkable. Globes and intraorbital contents are normal. Visual is portions of the paranasal sinuses and mastoid air cells are well-pneumatized. Extensive soft tissue swelling overlying the right mandible. No discrete fluid collection is identified. Extensive dental caries are seen. Maxilla is edentulous. Small amount of edema is seen in the right parapharyngeal fat. No discrete periapical lucency is seen. IMPRESSION: Extensive soft tissue edema and inflammation overlying the right mandible without focal fluid collection identified. Exposure: One or more of the following in the visualized dose reduction techniques were utilized for this examination: 1. Automated exposure control 2. Adjustment of the MA and/or KV according to patient size 3. Use of iterative of reconstructive technique Electronically signed by: Andrés Doran MD (06/08/2020 9:41 PM) [id number] Laboratory Tests Test 06/08/20 16:11 06/08/20 16:55 06/08/20 20:33 06/09/20 00:30 White Blood Count 17.4 x10^3/uL (4.0-11.0) Red Blood Count 4.73 x10^6/uL (3.50-5.40) Hemoglobin 11.5 g/dL (12.0-15.5) Hematocrit 35.5 % (36.0-47.0) Mean Corpuscular Volume 75 fL (79-100) Mean Corpuscular Hemoglobin 24 pg (25-35) Mean Corpuscular Hemoglobin Concent 33 g/dL (31-37) Red Cell Distribution Width 17.6 % (11.5-14.5) Platelet Count 317 x10^3/uL (140-400) Neutrophils (%) (Auto) 71 % (31-73) Lymphocytes (%) (Auto) 20 % (24-48) Monocytes (%) (Auto) 8 % (0-9) Eosinophils (%) (Auto) 1 % (0-3) Basophils (%) (Auto) 0 % (0-3) Neutrophils # (Auto) 12.4 x10^3/uL (1.8-7.7) Lymphocytes # (Auto) 3.5 x10^3/uL (1.0-4.8) Monocytes # (Auto) 1.4 x10^3/uL (0.0-1.1) Eosinophils # (Auto) 0.1 x10^3/uL (0.0-0.7) Basophils # (Auto) 0.1 x10^3/uL (0.0-0.2) Sodium Level 136 mmol/L (136-145) Potassium Level 4.3 mmol/L (3.5-5.1) Chloride Level 100 mmol/L (98-107) Carbon Dioxide Level 27 mmol/L (21-32) Anion Gap 9 (6-14) Blood Urea Nitrogen 19 mg/dL (7-20) Creatinine 1.2 mg/dL (0.6-1.0) Estimated GFR (Cockcroft-Gault) 43.6 BUN/Creatinine Ratio 16 (6-20) Glucose Level 120 mg/dL (70-99) Calcium Level 9.4 mg/dL (8.5-10.1) Total Bilirubin 0.6 mg/dL (0.2-1.0) Aspartate Amino Transf (AST/SGOT) 17 U/L (15-37) Alanine Aminotransferase (ALT/SGPT) 17 U/L (14-59) Alkaline Phosphatase 123 U/L (46-116) Troponin I Quantitative 0.020 ng/mL (0.000-0.055) 0.018 ng/mL (0.000-0.055) Total Protein 7.8 g/dL (6.4-8.2) Albumin 3.2 g/dL (3.4-5.0) Albumin/Globulin Ratio 0.7 (1.0-1.7) Thyroid Stimulating Hormone (TSH) 2.495 uIU/mL (0.358-3.74) Urine Collection Type U cath Urine Color Yellow Urine Clarity Cloudy Urine pH 5.5 (<5.0-8.0) Urine Specific [place] >=1.030 (1.000-1.030) Urine Protein 100 mg/dL (NEG-TRACE) Urine Glucose (UA) Negative mg/dL (NEG) Urine Ketones (Stick) Trace mg/dL (NEG) Urine Blood Large (NEG) Urine Nitrite Negative (NEG) Urine Bilirubin Small (NEG) Urine Urobilinogen Dipstick 1.0 mg/dL (0.2 mg/dL) Urine Leukocyte Esterase Large (NEG) Urine RBC 20-40 /HPF (0-2) Urine WBC Tntc /HPF (0-4) Urine Squamous Epithelial Cells Mod /LPF Urine Bacteria 0 /HPF (0-FEW) Glucose (Fingerstick) 193 mg/dL (70-99) Test 06/09/20 03:00 06/09/20 07:13 White Blood Count 13.1 x10^3/uL (4.0-11.0) Red Blood Count 4.20 x10^6/uL (3.50-5.40) Hemoglobin 10.3 g/dL (12.0-15.5) Hematocrit 31.9 % (36.0-47.0) Mean Corpuscular Volume 76 fL (79-100) Mean Corpuscular Hemoglobin 25 pg (25-35) Mean Corpuscular Hemoglobin Concent 32 g/dL (31-37) Red Cell Distribution Width 17.7 % (11.5-14.5) Platelet Count 255 x10^3/uL (140-400) Neutrophils (%) (Auto) 67 % (31-73) Lymphocytes (%) (Auto) 24 % (24-48) Monocytes (%) (Auto) 8 % (0-9) Eosinophils (%) (Auto) 1 % (0-3) Basophils (%) (Auto) 1 % (0-3) Neutrophils # (Auto) 8.8 x10^3/uL (1.8-7.7) Lymphocytes # (Auto) 3.2 x10^3/uL (1.0-4.8) Monocytes # (Auto) 1.0 x10^3/uL (0.0-1.1) Eosinophils # (Auto) 0.1 x10^3/uL (0.0-0.7) Basophils # (Auto) 0.1 x10^3/uL (0.0-0.2) Sodium Level 135 mmol/L (136-145) Potassium Level 4.5 mmol/L (3.5-5.1) Chloride Level 100 mmol/L (98-107) Carbon Dioxide Level 29 mmol/L (21-32) Anion Gap 6 (6-14) Blood Urea Nitrogen 22 mg/dL (7-20) Creatinine 1.3 mg/dL (0.6-1.0) Estimated GFR (Cockcroft-Gault) 39.7 BUN/Creatinine Ratio 17 (6-20) Glucose Level 264 mg/dL (70-99) Calcium Level 8.7 mg/dL (8.5-10.1) Total Bilirubin 0.4 mg/dL (0.2-1.0) Aspartate Amino Transf (AST/SGOT) 21 U/L (15-37) Alanine Aminotransferase (ALT/SGPT) 19 U/L (14-59) Alkaline Phosphatase 122 U/L (46-116) Troponin I Quantitative 0.022 ng/mL (0.000-0.055) Total Protein 6.4 g/dL (6.4-8.2) Albumin 2.7 g/dL (3.4-5.0) Albumin/Globulin Ratio 0.7 (1.0-1.7) Glucose (Fingerstick) 214 mg/dL (70-99) Assessment and Plan Assessmemt and Plan Problems Medical Problems: (1) Dental infection Status: Acute (2) Generalized weakness Status: Acute (3) Urinary tract infection Status: Acute Comment Review of Relevant I have reviewed the following items jina (where applicable) has been applied. Labs Laboratory Tests Test 06/08/20 16:11 06/08/20 16:55 06/08/20 20:33 06/09/20 00:30 White Blood Count 17.4 x10^3/uL (4.0-11.0) Red Blood Count 4.73 x10^6/uL (3.50-5.40) Hemoglobin 11.5 g/dL (12.0-15.5) Hematocrit 35.5 % (36.0-47.0) Mean Corpuscular Volume 75 fL (79-100) Mean Corpuscular Hemoglobin 24 pg (25-35) Mean Corpuscular Hemoglobin Concent 33 g/dL (31-37) Red Cell Distribution Width 17.6 % (11.5-14.5) Platelet Count 317 x10^3/uL (140-400) Neutrophils (%) (Auto) 71 % (31-73) Lymphocytes (%) (Auto) 20 % (24-48) Monocytes (%) (Auto) 8 % (0-9) Eosinophils (%) (Auto) 1 % (0-3) Basophils (%) (Auto) 0 % (0-3) Neutrophils # (Auto) 12.4 x10^3/uL (1.8-7.7) Lymphocytes # (Auto) 3.5 x10^3/uL (1.0-4.8) Monocytes # (Auto) 1.4 x10^3/uL (0.0-1.1) Eosinophils # (Auto) 0.1 x10^3/uL (0.0-0.7) Basophils # (Auto) 0.1 x10^3/uL (0.0-0.2) Sodium Level 136 mmol/L (136-145) Potassium Level 4.3 mmol/L (3.5-5.1) Chloride Level 100 mmol/L (98-107) Carbon Dioxide Level 27 mmol/L (21-32) Anion Gap 9 (6-14) Blood Urea Nitrogen 19 mg/dL (7-20) Creatinine 1.2 mg/dL (0.6-1.0) Estimated GFR (Cockcroft-Gault) 43.6 BUN/Creatinine Ratio 16 (6-20) Glucose Level 120 mg/dL (70-99) Calcium Level 9.4 mg/dL (8.5-10.1) Total Bilirubin 0.6 mg/dL (0.2-1.0) Aspartate Amino Transf (AST/SGOT) 17 U/L (15-37) Alanine Aminotransferase (ALT/SGPT) 17 U/L (14-59) Alkaline Phosphatase 123 U/L (46-116) Troponin I Quantitative 0.020 ng/mL (0.000-0.055) 0.018 ng/mL (0.000-0.055) Total Protein 7.8 g/dL (6.4-8.2) Albumin 3.2 g/dL (3.4-5.0) Albumin/Globulin Ratio 0.7 (1.0-1.7) Thyroid Stimulating Hormone (TSH) 2.495 uIU/mL (0.358-3.74) Urine Collection Type U cath Urine Color Yellow Urine Clarity Cloudy Urine pH 5.5 (<5.0-8.0) Urine Specific [place] >=1.030 (1.000-1.030) Urine Protein 100 mg/dL (NEG-TRACE) Urine Glucose (UA) Negative mg/dL (NEG) Urine Ketones (Stick) Trace mg/dL (NEG) Urine Blood Large (NEG) Urine Nitrite Negative (NEG) Urine Bilirubin Small (NEG) Urine Urobilinogen Dipstick 1.0 mg/dL (0.2 mg/dL) Urine Leukocyte Esterase Large (NEG) Urine RBC 20-40 /HPF (0-2) Urine WBC Tntc /HPF (0-4) Urine Squamous Epithelial Cells Mod /LPF Urine Bacteria 0 /HPF (0-FEW) Glucose (Fingerstick) 193 mg/dL (70-99) Test 06/09/20 03:00 06/09/20 07:13 White Blood Count 13.1 x10^3/uL (4.0-11.0) Red Blood Count 4.20 x10^6/uL (3.50-5.40) Hemoglobin 10.3 g/dL (12.0-15.5) Hematocrit 31.9 % (36.0-47.0) Mean Corpuscular Volume 76 fL (79-100) Mean Corpuscular Hemoglobin 25 pg (25-35) Mean Corpuscular Hemoglobin Concent 32 g/dL (31-37) Red Cell Distribution Width 17.7 % (11.5-14.5) Platelet Count 255 x10^3/uL (140-400) Neutrophils (%) (Auto) 67 % (31-73) Lymphocytes (%) (Auto) 24 % (24-48) Monocytes (%) (Auto) 8 % (0-9) Eosinophils (%) (Auto) 1 % (0-3) Basophils (%) (Auto) 1 % (0-3) Neutrophils # (Auto) 8.8 x10^3/uL (1.8-7.7) Lymphocytes # (Auto) 3.2 x10^3/uL (1.0-4.8) Monocytes # (Auto) 1.0 x10^3/uL (0.0-1.1) Eosinophils # (Auto) 0.1 x10^3/uL (0.0-0.7) Basophils # (Auto) 0.1 x10^3/uL (0.0-0.2) Sodium Level 135 mmol/L (136-145) Potassium Level 4.5 mmol/L (3.5-5.1) Chloride Level 100 mmol/L (98-107) Carbon Dioxide Level 29 mmol/L (21-32) Anion Gap 6 (6-14) Blood Urea Nitrogen 22 mg/dL (7-20) Creatinine 1.3 mg/dL (0.6-1.0) Estimated GFR (Cockcroft-Gault) 39.7 BUN/Creatinine Ratio 17 (6-20) Glucose Level 264 mg/dL (70-99) Calcium Level 8.7 mg/dL (8.5-10.1) Total Bilirubin 0.4 mg/dL (0.2-1.0) Aspartate Amino Transf (AST/SGOT) 21 U/L (15-37) Alanine Aminotransferase (ALT/SGPT) 19 U/L (14-59) Alkaline Phosphatase 122 U/L (46-116) Troponin I Quantitative 0.022 ng/mL (0.000-0.055) Total Protein 6.4 g/dL (6.4-8.2) Albumin 2.7 g/dL (3.4-5.0) Albumin/Globulin Ratio 0.7 (1.0-1.7) Glucose (Fingerstick) 214 mg/dL (70-99) Laboratory Tests Test 06/08/20 16:11 06/08/20 16:55 06/08/20 20:33 06/09/20 00:30 White Blood Count 17.4 x10^3/uL (4.0-11.0) Red Blood Count 4.73 x10^6/uL (3.50-5.40) Hemoglobin 11.5 g/dL (12.0-15.5) Hematocrit 35.5 % (36.0-47.0) Mean Corpuscular Volume 75 fL (79-100) Mean Corpuscular Hemoglobin 24 pg (25-35) Mean Corpuscular Hemoglobin Concent 33 g/dL (31-37) Red Cell Distribution Width 17.6 % (11.5-14.5) Platelet Count 317 x10^3/uL (140-400) Neutrophils (%) (Auto) 71 % (31-73) Lymphocytes (%) (Auto) 20 % (24-48) Monocytes (%) (Auto) 8 % (0-9) Eosinophils (%) (Auto) 1 % (0-3) Basophils (%) (Auto) 0 % (0-3) Neutrophils # (Auto) 12.4 x10^3/uL (1.8-7.7) Lymphocytes # (Auto) 3.5 x10^3/uL (1.0-4.8) Monocytes # (Auto) 1.4 x10^3/uL (0.0-1.1) Eosinophils # (Auto) 0.1 x10^3/uL (0.0-0.7) Basophils # (Auto) 0.1 x10^3/uL (0.0-0.2) Sodium Level 136 mmol/L (136-145) Potassium Level 4.3 mmol/L (3.5-5.1) Chloride Level 100 mmol/L (98-107) Carbon Dioxide Level 27 mmol/L (21-32) Anion Gap 9 (6-14) Blood Urea Nitrogen 19 mg/dL (7-20) Creatinine 1.2 mg/dL (0.6-1.0) Estimated GFR (Cockcroft-Gault) 43.6 BUN/Creatinine Ratio 16 (6-20) Glucose Level 120 mg/dL (70-99) Calcium Level 9.4 mg/dL (8.5-10.1) Total Bilirubin 0.6 mg/dL (0.2-1.0) Aspartate Amino Transf (AST/SGOT) 17 U/L (15-37) Alanine Aminotransferase (ALT/SGPT) 17 U/L (14-59) Alkaline Phosphatase 123 U/L (46-116) Troponin I Quantitative 0.020 ng/mL (0.000-0.055) 0.018 ng/mL (0.000-0.055) Total Protein 7.8 g/dL (6.4-8.2) Albumin 3.2 g/dL (3.4-5.0) Albumin/Globulin Ratio 0.7 (1.0-1.7) Thyroid Stimulating Hormone (TSH) 2.495 uIU/mL (0.358-3.74) Urine Collection Type U cath Urine Color Yellow Urine Clarity Cloudy Urine pH 5.5 (<5.0-8.0) Urine Specific [place] >=1.030 (1.000-1.030) Urine Protein 100 mg/dL (NEG-TRACE) Urine Glucose (UA) Negative mg/dL (NEG) Urine Ketones (Stick) Trace mg/dL (NEG) Urine Blood Large (NEG) Urine Nitrite Negative (NEG) Urine Bilirubin Small (NEG) Urine Urobilinogen Dipstick 1.0 mg/dL (0.2 mg/dL) Urine Leukocyte Esterase Large (NEG) Urine RBC 20-40 /HPF (0-2) Urine WBC Tntc /HPF (0-4) Urine Squamous Epithelial Cells Mod /LPF Urine Bacteria 0 /HPF (0-FEW) Glucose (Fingerstick) 193 mg/dL (70-99) Test 06/09/20 03:00 06/09/20 07:13 White Blood Count 13.1 x10^3/uL (4.0-11.0) Red Blood Count 4.20 x10^6/uL (3.50-5.40) Hemoglobin 10.3 g/dL (12.0-15.5) Hematocrit 31.9 % (36.0-47.0) Mean Corpuscular Volume 76 fL (79-100) Mean Corpuscular Hemoglobin 25 pg (25-35) Mean Corpuscular Hemoglobin Concent 32 g/dL (31-37) Red Cell Distribution Width 17.7 % (11.5-14.5) Platelet Count 255 x10^3/uL (140-400) Neutrophils (%) (Auto) 67 % (31-73) Lymphocytes (%) (Auto) 24 % (24-48) Monocytes (%) (Auto) 8 % (0-9) Eosinophils (%) (Auto) 1 % (0-3) Basophils (%) (Auto) 1 % (0-3) Neutrophils # (Auto) 8.8 x10^3/uL (1.8-7.7) Lymphocytes # (Auto) 3.2 x10^3/uL (1.0-4.8) Monocytes # (Auto) 1.0 x10^3/uL (0.0-1.1) Eosinophils # (Auto) 0.1 x10^3/uL (0.0-0.7) Basophils # (Auto) 0.1 x10^3/uL (0.0-0.2) Sodium Level 135 mmol/L (136-145) Potassium Level 4.5 mmol/L (3.5-5.1) Chloride Level 100 mmol/L (98-107) Carbon Dioxide Level 29 mmol/L (21-32) Anion Gap 6 (6-14) Blood Urea Nitrogen 22 mg/dL (7-20) Creatinine 1.3 mg/dL (0.6-1.0) Estimated GFR (Cockcroft-Gault) 39.7 BUN/Creatinine Ratio 17 (6-20) Glucose Level 264 mg/dL (70-99) Calcium Level 8.7 mg/dL (8.5-10.1) Total Bilirubin 0.4 mg/dL (0.2-1.0) Aspartate Amino Transf (AST/SGOT) 21 U/L (15-37) Alanine Aminotransferase (ALT/SGPT) 19 U/L (14-59) Alkaline Phosphatase 122 U/L (46-116) Troponin I Quantitative 0.022 ng/mL (0.000-0.055) Total Protein 6.4 g/dL (6.4-8.2) Albumin 2.7 g/dL (3.4-5.0) Albumin/Globulin Ratio 0.7 (1.0-1.7) Glucose (Fingerstick) 214 mg/dL (70-99) Medications Current Medications Clindamycin HCl (Cleocin) 600 mg 1X ONCE PO Last administered on 06/08/20at 16:59; Start 06/08/20 at 16:15; Stop 06/08/20 at 16:16; Status DC Oxycodone/ Acetaminophen (Percocet 5/325) 2 tab 1X ONCE PO Last administered on 06/08/20at 16:59; Start 06/08/20 at 16:15; Stop 06/08/20 at 16:16; Status DC Sodium Chloride 1,000 ml @ 1,000 mls/hr 1X ONCE IV Last administered on 06/08/20at 16:44; Start 06/08/20 at 16:30; Stop 06/08/20 at 17:29; Status DC Ceftriaxone Sodium (Rocephin) 1 gm 1X ONCE IVP Last administered on 06/08/20at 17:49; Start 06/08/20 at 17:30; Stop 06/08/20 at 17:32; Status DC Ondansetron HCl (Zofran) 4 mg PRN Q8HRS PRN IV NAUSEA/VOMITING; Start 06/08/20 at 17:30; Stop 06/09/20 at 17:29 Sodium Chloride 1,000 ml @ 125 mls/hr Q8H IV Last administered on 06/09/20at 10:33; Start 06/08/20 at 17:27; Stop 06/09/20 at 17:26 Acetaminophen (Tylenol) 650 mg PRN Q4HRS PRN PO FEVER > 100.3'F; Start 06/08/20 at 17:30; Stop 06/09/20 at 17:29 Sodium Chloride 1,000 ml @ 125 mls/hr 1X ONCE IV Last administered on 06/08/20at 22:36; Start 06/08/20 at 18:00; Stop 06/09/20 at 01:59; Status DC Heparin Sodium (Porcine) (Heparin Sodium) 5,000 unit Q12HR SQ Last administered on 06/09/20at 10:39; Start 06/08/20 at 21:00 Ceftriaxone Sodium (Rocephin) 1 gm Q24H IVP ; Start 06/09/20 at 18:00 Diphenhydramine HCl (Benadryl) 25 mg PRN QHS PRN PO INSOMNIA; Start 06/09/20 at 08:45 Fluoxetine HCl (PROzac) 20 mg DAILY PO Last administered on 06/09/20at 10:31; Start 06/09/20 at 09:00 Nitroglycerin (Nitrostat) 0.4 mg PRN Q5MIN PRN SL CHEST PAIN; Start 06/09/20 at 08:45 Senna/Docusate Sodium (Senna Plus) 1 tab PRN DAILY PRN PO CONSTIPATION; Start 06/09/20 at 08:45 Spironolactone (Aldactone) 25 mg DAILY PO Last administered on 06/09/20at 10:31; Start 06/09/20 at 09:00 Carvedilol (Coreg) 12.5 mg BIDWMEALS PO Last administered on 06/09/20at 10:32; Start 06/09/20 at 09:00 Levothyroxine Sodium (Synthroid) 200 mcg DAILY06 PO Last administered on 06/09/20at 10:32; Start 06/09/20 at 10:30 Lactobacillus Rhamnosus (Culturelle) 1 cap BID PO ; Start 06/09/20 at 21:00 Acetaminophen/ Hydrocodone Bitart (Lortab 7.5/325) 1 tab PRN TID PRN PO MODERATE PAIN; Start 06/09/20 at 11:15 Non-Formulary Medication (Insulin Aspart (Novolog Flexpen)) 100 unit TID PRN PRN SQ hyperglycemia; Start 06/09/20 at 11:15; Status UNV Insulin Glargine (Lantus Syringe) 20 unit QHS SQ ; Start 06/09/20 at 21:00 Active Scripts Active Novolog Flexpen (Insulin Aspart) 100 Unit/1 Ml Insuln.pen 100 Unit SQ TID PRN PRN Reported Fluoxetine Hcl 20 Mg Capsule 20 Mg PO DAILY 90 Days Lantus Solostar (Insulin Glargine,Hum.rec.anlog) 100 Unit/1 Ml Insuln.pen 20 Unit SQ QHS Senokot-S Tablet (Sennosides/Docusate Sodium) 1 Each Tablet 1 Each PO PRN DAILY PRN Benadryl (Diphenhydramine Hcl) 25 Mg Capsule 25 Mg PO PRN QHS PRN Acetaminophen 500 Mg Tablet 500 Mg PO PRN Q6HRS PRN Spironolactone 25 Mg Tablet 25 Mg PO DAILY Colace (Docusate Sodium) 100 Mg Capsule 100 Mg PO PRN DAILY PRN Coreg (Carvedilol) 25 Mg Tablet 12.5 Mg PO BIDWMEALS Nitrostat (Nitroglycerin) 0.4 Mg Tab.subl 0.4 Mg SL PRN Q5MIN PRN Hydrocodone-Apap 7.5-325 (Hydrocodone Bit/Acetaminophen) 1 Tab Tablet 1 Tab PO PRN TID PRN Synthroid (Levothyroxine Sodium) 200 Mcg Tablet 200 Mcg PO DAILY Vitals/I & O Vital Sign - Last 24 Hours 06/08/20 06/08/20 06/08/20 06/08/20 15:54 16:41 17:11 17:41 Temp 98.4 98.4 Pulse 105 98 84 84 Resp 16 B/P (MAP) 119/53 (75) 161/69 (99) 153/57 (89) 163/67 (99) Pulse Ox 97 93 93 94 O2 Delivery Room Air Room Air Room Air Room Air 06/08/20 06/08/20 06/08/20 06/08/20 18:11 19:00 19:30 23:00 Temp 99.3 98.2 99.3 98.2 Pulse 84 82 81 Resp 20 20 B/P (MAP) 126/60 (82) 94/31 (52) 124/51 (75) Pulse Ox 90 93 91 O2 Delivery Room Air Room Air Room Air Room Air 06/09/20 06/09/20 06/09/20 03:00 07:00 10:32 Temp 98.6 98.5 98.6 98.5 Pulse 73 76 76 Resp 20 16 B/P (MAP) 161/68 (99) 162/62 (95) 162/62 Pulse Ox 93 95 O2 Delivery Room Air Room Air Intake and Output 06/08/20 06/08/20 06/09/20 15:00 23:00 07:00 Intake Total 1220 ml 460 ml Balance 1220 ml 460 ml Justicifation of Admission Dx: Justifications for Admission: Justification of Admission Dx: JAIRO Masters MD Jun 09, 2020 11:13
[2020-06-09] MEDS ORDERED: INSULIN ASPART 100 UNIT SQ PRN (11:15)
[2020-06-09] MEDS ORDERED: DEXTROSE 50% 25 GM / 50ML DISP.SYRIN. IV PRN (11:30)
--- NOTE | 2020-06-09 12:03 | PDOC ---
Infectious Disease Note Vital Sign Vital Signs Vital Signs Date Time Temp Pulse Resp B/P (MAP) Pulse Ox O2 Delivery O2 Flow Rate FiO2 06/09/20 10:32 76 162/62 06/09/20 07:00 98.5 16 95 Room Air 98.5 Labs Lab Laboratory Tests Test 06/08/20 16:11 06/08/20 16:55 06/08/20 20:33 06/09/20 00:30 White Blood Count 17.4 x10^3/uL (4.0-11.0) Red Blood Count 4.73 x10^6/uL (3.50-5.40) Hemoglobin 11.5 g/dL (12.0-15.5) Hematocrit 35.5 % (36.0-47.0) Mean Corpuscular Volume 75 fL (79-100) Mean Corpuscular Hemoglobin 24 pg (25-35) Mean Corpuscular Hemoglobin Concent 33 g/dL (31-37) Red Cell Distribution Width 17.6 % (11.5-14.5) Platelet Count 317 x10^3/uL (140-400) Neutrophils (%) (Auto) 71 % (31-73) Lymphocytes (%) (Auto) 20 % (24-48) Monocytes (%) (Auto) 8 % (0-9) Eosinophils (%) (Auto) 1 % (0-3) Basophils (%) (Auto) 0 % (0-3) Neutrophils # (Auto) 12.4 x10^3/uL (1.8-7.7) Lymphocytes # (Auto) 3.5 x10^3/uL (1.0-4.8) Monocytes # (Auto) 1.4 x10^3/uL (0.0-1.1) Eosinophils # (Auto) 0.1 x10^3/uL (0.0-0.7) Basophils # (Auto) 0.1 x10^3/uL (0.0-0.2) Sodium Level 136 mmol/L (136-145) Potassium Level 4.3 mmol/L (3.5-5.1) Chloride Level 100 mmol/L (98-107) Carbon Dioxide Level 27 mmol/L (21-32) Anion Gap 9 (6-14) Blood Urea Nitrogen 19 mg/dL (7-20) Creatinine 1.2 mg/dL (0.6-1.0) Estimated GFR (Cockcroft-Gault) 43.6 BUN/Creatinine Ratio 16 (6-20) Glucose Level 120 mg/dL (70-99) Calcium Level 9.4 mg/dL (8.5-10.1) Total Bilirubin 0.6 mg/dL (0.2-1.0) Aspartate Amino Transf (AST/SGOT) 17 U/L (15-37) Alanine Aminotransferase (ALT/SGPT) 17 U/L (14-59) Alkaline Phosphatase 123 U/L (46-116) Troponin I Quantitative 0.020 ng/mL (0.000-0.055) 0.018 ng/mL (0.000-0.055) Total Protein 7.8 g/dL (6.4-8.2) Albumin 3.2 g/dL (3.4-5.0) Albumin/Globulin Ratio 0.7 (1.0-1.7) Thyroid Stimulating Hormone (TSH) 2.495 uIU/mL (0.358-3.74) Urine Collection Type U cath Urine Color Yellow Urine Clarity Cloudy Urine pH 5.5 (<5.0-8.0) Urine Specific [place] >=1.030 (1.000-1.030) Urine Protein 100 mg/dL (NEG-TRACE) Urine Glucose (UA) Negative mg/dL (NEG) Urine Ketones (Stick) Trace mg/dL (NEG) Urine Blood Large (NEG) Urine Nitrite Negative (NEG) Urine Bilirubin Small (NEG) Urine Urobilinogen Dipstick 1.0 mg/dL (0.2 mg/dL) Urine Leukocyte Esterase Large (NEG) Urine RBC 20-40 /HPF (0-2) Urine WBC Tntc /HPF (0-4) Urine Squamous Epithelial Cells Mod /LPF Urine Bacteria 0 /HPF (0-FEW) Glucose (Fingerstick) 193 mg/dL (70-99) Test 06/09/20 03:00 06/09/20 07:13 06/09/20 11:16 White Blood Count 13.1 x10^3/uL (4.0-11.0) Red Blood Count 4.20 x10^6/uL (3.50-5.40) Hemoglobin 10.3 g/dL (12.0-15.5) Hematocrit 31.9 % (36.0-47.0) Mean Corpuscular Volume 76 fL (79-100) Mean Corpuscular Hemoglobin 25 pg (25-35) Mean Corpuscular Hemoglobin Concent 32 g/dL (31-37) Red Cell Distribution Width 17.7 % (11.5-14.5) Platelet Count 255 x10^3/uL (140-400) Neutrophils (%) (Auto) 67 % (31-73) Lymphocytes (%) (Auto) 24 % (24-48) Monocytes (%) (Auto) 8 % (0-9) Eosinophils (%) (Auto) 1 % (0-3) Basophils (%) (Auto) 1 % (0-3) Neutrophils # (Auto) 8.8 x10^3/uL (1.8-7.7) Lymphocytes # (Auto) 3.2 x10^3/uL (1.0-4.8) Monocytes # (Auto) 1.0 x10^3/uL (0.0-1.1) Eosinophils # (Auto) 0.1 x10^3/uL (0.0-0.7) Basophils # (Auto) 0.1 x10^3/uL (0.0-0.2) Sodium Level 135 mmol/L (136-145) Potassium Level 4.5 mmol/L (3.5-5.1) Chloride Level 100 mmol/L (98-107) Carbon Dioxide Level 29 mmol/L (21-32) Anion Gap 6 (6-14) Blood Urea Nitrogen 22 mg/dL (7-20) Creatinine 1.3 mg/dL (0.6-1.0) Estimated GFR (Cockcroft-Gault) 39.7 BUN/Creatinine Ratio 17 (6-20) Glucose Level 264 mg/dL (70-99) Calcium Level 8.7 mg/dL (8.5-10.1) Total Bilirubin 0.4 mg/dL (0.2-1.0) Aspartate Amino Transf (AST/SGOT) 21 U/L (15-37) Alanine Aminotransferase (ALT/SGPT) 19 U/L (14-59) Alkaline Phosphatase 122 U/L (46-116) Troponin I Quantitative 0.022 ng/mL (0.000-0.055) Total Protein 6.4 g/dL (6.4-8.2) Albumin 2.7 g/dL (3.4-5.0) Albumin/Globulin Ratio 0.7 (1.0-1.7) Glucose (Fingerstick) 214 mg/dL (70-99) 301 mg/dL (70-99) Objective Assessment Facial cellulitis Dental infection suspected Leukocytosis Renal insufficiency h/o VRE Diabetes Obesity Plan Plan of Care recommend Unasyn and Zyvox Dental eval Maintain aspiration precautions Supportive care D/w nursing Thank you [id number] Attending Co-Sign The patient was seen and interviewed as well as examined at the bedside. The chart was reviewed. The case was discussed. Agree with the plan of care. TIMBO MONET APRN Jun 09, 2020 12:03 SYDNI ANTUNEZ MD Jun 09, 2020 12:08
[2020-06-09] MEDS: INSULIN LISPRO 300 UNITS/3 ML VIAL. SQ SCH ×2 (12:40→17:33)
--- NOTE | 2020-06-09 13:04 | CONS ---
DATE OF CONSULTATION: 06/09/2020 INFECTIOUS DISEASE CONSULTATION REQUESTING PHYSICIAN: Dr. Randolph. REASON FOR CONSULTATION: Periodontal infection. HISTORY OF PRESENT ILLNESS: This patient is a 75-year-old female who presented with a 4-day history of worsening right-sided facial/jaw swelling and pain. She found a temporary relief with a pain pill. She complains of right-sided sore throat. She is able to chew on her left side. She has an upper dentures and partials on the lower. She denies fevers, chills, sweats or body aches. She has not been to the dentist in over 3 years. PAST MEDICAL HISTORY: Coronary artery disease, hyperlipidemia, hypertension, obesity, GERD, urinary incontinence, diabetes, hypothyroidism, depression, anemia, history of VRE in urine, myocardial infarction, osteoarthritis. PAST SURGICAL HISTORY: Coronary stents, gastric bypass, appendectomy, cholecystectomy, tubal ligation, section, right shoulder surgery. FAMILY HISTORY: Noncontributory. SOCIAL HISTORY: The patient lives at home. She is a former smoker. ALLERGIES: HYDROCHLOROTHIAZIDE, LOSARTAN. MEDICATIONS: Reviewed on the JAN and includes Rocephin, probiotics. REVIEW OF SYSTEMS: Per HPI, otherwise all other review of systems are negative. PHYSICAL EXAMINATION: VITAL SIGNS: Temperature 98.5, blood pressure 162/62, heart rate 76, respiratory rate 16, pulse oximetry is 95% on room air. GENERAL: The patient is alert, lying down with ice pack over her right side of the face. HEENT: Pupils equally round. Oropharynx pink, moist. She has upper dentures and partial on lower. Right cheek and jaw area is swollen and very tender. No lesions seen in the mouth. NECK: Supple. LUNGS: Clear to auscultation. HEART: S1 and S2. ABDOMEN: Obese, soft, nontender. EXTREMITIES: No gross edema or cyanosis. SKIN: Warm to touch. No signs of rash. NEUROLOGIC: Alert and answering questions appropriately. LABORATORY DATA: WBC 13.1 from 17.4 on admission, hemoglobin 10.3, platelets 255,000. Sodium 135, potassium 4.5, creatinine 1.3, BUN 22, glucose 264, total bilirubin 0.4, AST 21, ALT 19. Troponin 0.022, albumin 2.7. Urinalysis is positive for wbc's, leukocyte esterase, moderate squamous epithelial cells. Urine culture pending. Maxillofacial CT showed extensive soft tissue edema and inflammation overlying the right mandible without focal fluid collection identified. IMPRESSION: 1. Facial cellulitis. 2. Dental infection suspected. 3. Leukocytosis. 4. Renal insufficiency. 5. History of VRE. 6. Diabetes. 7. Obesity. PLAN: 1. Recommend Unasyn and Zyvox. 2. Dental evaluation. 3. Maintain aspiration precautions. 4. Discussed with nursing. Thank you, Dr. Randolph, for asking us to participate in this patient's care. Should you have further questions or concerns, please call. The patient was seen and examined and plan of care implemented by Dr. Hemant Antunez. HEMANT ANTUNEZ MD DR: MATT/marlo JOB#: [id number] / [id number]
[2020-06-09] MEDS: HYDROcodone/APAP 7.5/325MG 1 TAB TABLET PO PRN ×2 (13:38→21:36)
[2020-06-09] MEDS: AMPICILLIN/SULBACTAM 3 GM in IV NORMAL SALINE 100ML 100 ML IV SCH ×3 (13:39→23:44)
[2020-06-09 15:00] VITALS: BP 135/50
[2020-06-09] MEDS ORDERED: cefTRIAXone IV Push 1 GM VIAL. IVP SCH (18:00)
[2020-06-09 19:00] VITALS: BP 136/51
[2020-06-09] MEDS: INSULIN GLARGINE SYRINGE. SQ SCH (21:00)
[2020-06-09] MEDS: LACTOBACILLUS RHAMNOSUS GG 1 CAPSULE. PO SCH (21:26)
[2020-06-09 23:00] VITALS: BP 124/52
[2020-06-10 03:00] VITALS: BP 145/64
[2020-06-10] MEDS: AMPICILLIN/SULBACTAM 3 GM in IV NORMAL SALINE 100ML 100 ML IV SCH ×4 (05:44→23:58)
[2020-06-10] MEDS: LEVOTHYROXINE 100 MCG TABLET PO SCH (05:45)
[2020-06-10] MEDS: HYDROcodone/APAP 7.5/325MG 1 TAB TABLET PO PRN ×2 (06:06→22:23)
[2020-06-10 07:00] VITALS: BP 136/52
[2020-06-10] MEDS: LACTOBACILLUS RHAMNOSUS GG 1 CAPSULE. PO SCH ×2 (09:19→21:14)
[2020-06-10] MEDS: FLUoxetine HCL 20 MG CAPSULE PO SCH (09:20)
[2020-06-10] MEDS: SPIRONOLACTONE 25 MG TABLET PO SCH (09:20)
[2020-06-10] MEDS: CARVEDILOL 12.5 MG TABLET. PO SCH ×2 (09:20→17:29)
[2020-06-10] MEDS: INSULIN LISPRO 300 UNITS/3 ML VIAL. SQ SCH ×3 (09:22→16:48)
--- NOTE | 2020-06-10 09:24 | NUR ---
SW following. Spoke with RN and reviewed chart. Pt on room air and IV Unasyn. Pt will likely discharge 06/11/2020 home. SW to continue following.
[2020-06-10] MEDS: HEPARIN for SUB-Q USE 5,000 UNIT/ML VIAL. SQ SCH ×2 (09:27→21:27)
--- NOTE | 2020-06-10 09:31 | PDOC ---
PROGRESS NOTES Chief Complaint Chief Complaint A/P: Facial cellulitis - ID consulted as well as oral surgeon Sepsis - with facial cellulitis Acute reactive dental infection Elevated alkaline phosphatase Acute renal failurevasomotor nephropathy Dyslipidemia Hypertension UTI - will treat empirically, f/u culture results Urinary incontinence - will have bladder training with OT Morbid obesity BMI 50 - counseled on weight loss Bilateral knee pain left greater than right - improved after prior injections Diabetes type 2 uncontrolled - will place on basal bolus plus regimen in house Hypertension, controlled - cont meds Hypothyroidism - TSH WNL, will cont 200mcg levothyroxine dosing FEN - ADA diet PPX - lovenox FULL CODE Dispo -inpatient likely 2 midnights PLAN Admit to the medicine CONSULT ID pending U cx Continue IVF oral surgery consult pending avoid nephrotoxic agents continue ADA diet RISS Heparin DVT prophy FULL code iv Unasyn and Zyvox D/W RN History of Present Illness History of Present Illness Ms Kenney is a 74yo F w/ PMHx DM2, HLD, HTN, CAD s/p stenting who p/w right sided facial pain, found with cellulitis as well as UTI. Still having right-sided facial swelling and pain. No pain on putting her upper dentures in. No shortness of breath or chest pain. Still has dysuria and episodic incontinence. Vitals Vitals Vital Signs Date Time Temp Pulse Resp B/P (MAP) Pulse Ox O2 Delivery O2 Flow Rate FiO2 06/10/20 07:06 18 06/10/20 07:00 97.8 61 136/52 (80) 94 Room Air 97.8 Physical Exam General: Alert, Oriented X3, Cooperative, mild distress Heart: Regular rate, Normal S1, Normal S2 Lungs: Clear Abdomen: Normal bowel sounds, Soft Extremities: No cyanosis Labs LABS Laboratory Tests Test 06/09/20 11:16 06/09/20 16:35 06/09/20 20:59 06/10/20 07:59 Glucose (Fingerstick) 301 mg/dL (70-99) 212 mg/dL (70-99) 86 mg/dL (70-99) 179 mg/dL (70-99) Assessment and Plan Assessmemt and Plan Problems Medical Problems: (1) Dental infection Status: Acute (2) Generalized weakness Status: Acute (3) Urinary tract infection Status: Acute Comment Review of Relevant I have reviewed the following items jina (where applicable) has been applied. Labs Laboratory Tests Test 06/08/20 16:11 06/08/20 16:55 06/08/20 20:33 06/09/20 00:30 White Blood Count 17.4 x10^3/uL (4.0-11.0) Red Blood Count 4.73 x10^6/uL (3.50-5.40) Hemoglobin 11.5 g/dL (12.0-15.5) Hematocrit 35.5 % (36.0-47.0) Mean Corpuscular Volume 75 fL (79-100) Mean Corpuscular Hemoglobin 24 pg (25-35) Mean Corpuscular Hemoglobin Concent 33 g/dL (31-37) Red Cell Distribution Width 17.6 % (11.5-14.5) Platelet Count 317 x10^3/uL (140-400) Neutrophils (%) (Auto) 71 % (31-73) Lymphocytes (%) (Auto) 20 % (24-48) Monocytes (%) (Auto) 8 % (0-9) Eosinophils (%) (Auto) 1 % (0-3) Basophils (%) (Auto) 0 % (0-3) Neutrophils # (Auto) 12.4 x10^3/uL (1.8-7.7) Lymphocytes # (Auto) 3.5 x10^3/uL (1.0-4.8) Monocytes # (Auto) 1.4 x10^3/uL (0.0-1.1) Eosinophils # (Auto) 0.1 x10^3/uL (0.0-0.7) Basophils # (Auto) 0.1 x10^3/uL (0.0-0.2) Sodium Level 136 mmol/L (136-145) Potassium Level 4.3 mmol/L (3.5-5.1) Chloride Level 100 mmol/L (98-107) Carbon Dioxide Level 27 mmol/L (21-32) Anion Gap 9 (6-14) Blood Urea Nitrogen 19 mg/dL (7-20) Creatinine 1.2 mg/dL (0.6-1.0) Estimated GFR (Cockcroft-Gault) 43.6 BUN/Creatinine Ratio 16 (6-20) Glucose Level 120 mg/dL (70-99) Calcium Level 9.4 mg/dL (8.5-10.1) Total Bilirubin 0.6 mg/dL (0.2-1.0) Aspartate Amino Transf (AST/SGOT) 17 U/L (15-37) Alanine Aminotransferase (ALT/SGPT) 17 U/L (14-59) Alkaline Phosphatase 123 U/L (46-116) Troponin I Quantitative 0.020 ng/mL (0.000-0.055) 0.018 ng/mL (0.000-0.055) Total Protein 7.8 g/dL (6.4-8.2) Albumin 3.2 g/dL (3.4-5.0) Albumin/Globulin Ratio 0.7 (1.0-1.7) Thyroid Stimulating Hormone (TSH) 2.495 uIU/mL (0.358-3.74) Urine Collection Type U cath Urine Color Yellow Urine Clarity Cloudy Urine pH 5.5 (<5.0-8.0) Urine Specific [place] >=1.030 (1.000-1.030) Urine Protein 100 mg/dL (NEG-TRACE) Urine Glucose (UA) Negative mg/dL (NEG) Urine Ketones (Stick) Trace mg/dL (NEG) Urine Blood Large (NEG) Urine Nitrite Negative (NEG) Urine Bilirubin Small (NEG) Urine Urobilinogen Dipstick 1.0 mg/dL (0.2 mg/dL) Urine Leukocyte Esterase Large (NEG) Urine RBC 20-40 /HPF (0-2) Urine WBC Tntc /HPF (0-4) Urine Squamous Epithelial Cells Mod /LPF Urine Bacteria 0 /HPF (0-FEW) Glucose (Fingerstick) 193 mg/dL (70-99) Test 06/09/20 03:00 06/09/20 07:13 06/09/20 11:16 06/09/20 16:35 White Blood Count 13.1 x10^3/uL (4.0-11.0) Red Blood Count 4.20 x10^6/uL (3.50-5.40) Hemoglobin 10.3 g/dL (12.0-15.5) Hematocrit 31.9 % (36.0-47.0) Mean Corpuscular Volume 76 fL (79-100) Mean Corpuscular Hemoglobin 25 pg (25-35) Mean Corpuscular Hemoglobin Concent 32 g/dL (31-37) Red Cell Distribution Width 17.7 % (11.5-14.5) Platelet Count 255 x10^3/uL (140-400) Neutrophils (%) (Auto) 67 % (31-73) Lymphocytes (%) (Auto) 24 % (24-48) Monocytes (%) (Auto) 8 % (0-9) Eosinophils (%) (Auto) 1 % (0-3) Basophils (%) (Auto) 1 % (0-3) Neutrophils # (Auto) 8.8 x10^3/uL (1.8-7.7) Lymphocytes # (Auto) 3.2 x10^3/uL (1.0-4.8) Monocytes # (Auto) 1.0 x10^3/uL (0.0-1.1) Eosinophils # (Auto) 0.1 x10^3/uL (0.0-0.7) Basophils # (Auto) 0.1 x10^3/uL (0.0-0.2) Sodium Level 135 mmol/L (136-145) Potassium Level 4.5 mmol/L (3.5-5.1) Chloride Level 100 mmol/L (98-107) Carbon Dioxide Level 29 mmol/L (21-32) Anion Gap 6 (6-14) Blood Urea Nitrogen 22 mg/dL (7-20) Creatinine 1.3 mg/dL (0.6-1.0) Estimated GFR (Cockcroft-Gault) 39.7 BUN/Creatinine Ratio 17 (6-20) Glucose Level 264 mg/dL (70-99) Calcium Level 8.7 mg/dL (8.5-10.1) Total Bilirubin 0.4 mg/dL (0.2-1.0) Aspartate Amino Transf (AST/SGOT) 21 U/L (15-37) Alanine Aminotransferase (ALT/SGPT) 19 U/L (14-59) Alkaline Phosphatase 122 U/L (46-116) Troponin I Quantitative 0.022 ng/mL (0.000-0.055) Total Protein 6.4 g/dL (6.4-8.2) Albumin 2.7 g/dL (3.4-5.0) Albumin/Globulin Ratio 0.7 (1.0-1.7) Glucose (Fingerstick) 214 mg/dL (70-99) 301 mg/dL (70-99) 212 mg/dL (70-99) Test 06/09/20 20:59 06/10/20 07:59 Glucose (Fingerstick) 86 mg/dL (70-99) 179 mg/dL (70-99) Laboratory Tests Test 06/09/20 11:16 06/09/20 16:35 06/09/20 20:59 06/10/20 07:59 Glucose (Fingerstick) 301 mg/dL (70-99) 212 mg/dL (70-99) 86 mg/dL (70-99) 179 mg/dL (70-99) Medications Current Medications Clindamycin HCl (Cleocin) 600 mg 1X ONCE PO Last administered on 06/08/20at 16:59; Start 06/08/20 at 16:15; Stop 06/08/20 at 16:16; Status DC Oxycodone/ Acetaminophen (Percocet 5/325) 2 tab 1X ONCE PO Last administered on 06/08/20at 16:59; Start 06/08/20 at 16:15; Stop 06/08/20 at 16:16; Status DC Sodium Chloride 1,000 ml @ 1,000 mls/hr 1X ONCE IV Last administered on 06/08/20at 16:44; Start 06/08/20 at 16:30; Stop 06/08/20 at 17:29; Status DC Ceftriaxone Sodium (Rocephin) 1 gm 1X ONCE IVP Last administered on 06/08/20at 17:49; Start 06/08/20 at 17:30; Stop 06/08/20 at 17:32; Status DC Ondansetron HCl (Zofran) 4 mg PRN Q8HRS PRN IV NAUSEA/VOMITING; Start 06/08/20 at 17:30; Stop 06/09/20 at 17:29; Status DC Sodium Chloride 1,000 ml @ 125 mls/hr Q8H IV Last administered on 06/09/20at 10:33; Start 06/08/20 at 17:27; Stop 06/09/20 at 17:26; Status DC Acetaminophen (Tylenol) 650 mg PRN Q4HRS PRN PO FEVER > 100.3'F; Start 06/08/20 at 17:30; Stop 06/09/20 at 17:29; Status DC Sodium Chloride 1,000 ml @ 125 mls/hr 1X ONCE IV Last administered on 06/08/20at 22:36; Start 06/08/20 at 18:00; Stop 06/09/20 at 01:59; Status DC Heparin Sodium (Porcine) (Heparin Sodium) 5,000 unit Q12HR SQ Last administered on 06/09/20at 21:47; Start 06/08/20 at 21:00 Ceftriaxone Sodium (Rocephin) 1 gm Q24H IVP ; Start 06/09/20 at 18:00; Stop 06/09/20 at 12:00; Status DC Diphenhydramine HCl (Benadryl) 25 mg PRN QHS PRN PO INSOMNIA Last administered on 06/10/20at 01:59; Start 06/09/20 at 08:45 Fluoxetine HCl (PROzac) 20 mg DAILY PO Last administered on 06/09/20at 10:31; Start 06/09/20 at 09:00 Nitroglycerin (Nitrostat) 0.4 mg PRN Q5MIN PRN SL CHEST PAIN; Start 06/09/20 at 08:45 Senna/Docusate Sodium (Senna Plus) 1 tab PRN DAILY PRN PO CONSTIPATION; Start 06/09/20 at 08:45 Spironolactone (Aldactone) 25 mg DAILY PO Last administered on 06/09/20at 10:31; Start 06/09/20 at 09:00 Carvedilol (Coreg) 12.5 mg BIDWMEALS PO Last administered on 06/09/20at 17:30; Start 06/09/20 at 09:00 Levothyroxine Sodium (Synthroid) 200 mcg DAILY06 PO Last administered on 06/10/20at 05:45; Start 06/09/20 at 10:30 Lactobacillus Rhamnosus (Culturelle) 1 cap BID PO Last administered on 06/09/20at 21:26; Start 06/09/20 at 21:00 Acetaminophen/ Hydrocodone Bitart (Lortab 7.5/325) 1 tab PRN TID PRN PO MODERATE PAIN Last administered on 06/10/20at 06:06; Start 06/09/20 at 11:15 Non-Formulary Medication (Insulin Aspart (Novolog Flexpen)) 100 unit TID PRN PRN SQ hyperglycemia; Start 06/09/20 at 11:15; Stop 06/09/20 at 11:29; Status DC Insulin Glargine (Lantus Syringe) 20 unit QHS SQ ; Start 06/09/20 at 21:00 Insulin Human Lispro (HumaLOG) 0-9 UNITS TIDWMEALS SQ Last administered on 06/09/20at 17:33; Start 06/09/20 at 12:00 Dextrose (Dextrose 50%-Water Syringe) 12.5 gm PRN Q15MIN PRN IV SEE COMMENTS; Start 06/09/20 at 11:30 Ampicillin Sodium/ Sulbactam Sodium 3 gm/Sodium Chloride 100 ml @ 200 mls/hr Q6HRS IV Last administered on 06/10/20at 05:44; Start 06/09/20 at 12:00 Linezolid/Dextrose 300 ml @ 300 mls/hr Q12HR IV Last administered on 06/09/20at 21:24; Start 06/09/20 at 12:00 Active Scripts Active Novolog Flexpen (Insulin Aspart) 100 Unit/1 Ml Insuln.pen 100 Unit SQ TID PRN PRN Reported Fluoxetine Hcl 20 Mg Capsule 20 Mg PO DAILY 90 Days Lantus Solostar (Insulin Glargine,Hum.rec.anlog) 100 Unit/1 Ml Insuln.pen 20 Unit SQ QHS Senokot-S Tablet (Sennosides/Docusate Sodium) 1 Each Tablet 1 Each PO PRN DAILY PRN Benadryl (Diphenhydramine Hcl) 25 Mg Capsule 25 Mg PO PRN QHS PRN Acetaminophen 500 Mg Tablet 500 Mg PO PRN Q6HRS PRN Spironolactone 25 Mg Tablet 25 Mg PO DAILY Colace (Docusate Sodium) 100 Mg Capsule 100 Mg PO PRN DAILY PRN Coreg (Carvedilol) 25 Mg Tablet 12.5 Mg PO BIDWMEALS Nitrostat (Nitroglycerin) 0.4 Mg Tab.subl 0.4 Mg SL PRN Q5MIN PRN Hydrocodone-Apap 7.5-325 (Hydrocodone Bit/Acetaminophen) 1 Tab Tablet 1 Tab PO PRN TID PRN Synthroid (Levothyroxine Sodium) 200 Mcg Tablet 200 Mcg PO DAILY Vitals/I & O Vital Sign - Last 24 Hours 06/09/20 06/09/20 06/09/20 06/09/20 10:32 11:00 13:38 14:38 Temp 97.8 97.8 Pulse 76 79 Resp 18 B/P (MAP) 162/62 117/54 (75) Pulse Ox 92 O2 Delivery Room Air Room Air Room Air 06/09/20 06/09/20 06/09/20 06/09/20 15:00 17:30 19:00 21:30 Temp 98.2 98.3 98.2 98.3 Pulse 68 68 71 Resp 16 18 B/P (MAP) 135/50 (78) 135/50 136/51 (79) Pulse Ox 92 97 O2 Delivery Room Air Room Air Room Air 06/09/20 06/09/20 06/09/20 06/10/20 21:36 22:36 23:00 03:00 Temp 98.4 98.5 98.4 98.5 Pulse 69 69 Resp 20 18 18 18 B/P (MAP) 124/52 (76) 145/64 (91) Pulse Ox 92 93 O2 Delivery Room Air Room Air Room Air Room Air 06/10/20 06/10/20 06/10/20 06:06 07:00 07:06 Temp 97.8 97.8 Pulse 61 Resp 20 20 18 B/P (MAP) 136/52 (80) Pulse Ox 94 O2 Delivery Room Air Room Air Intake and Output 06/09/20 06/09/20 06/10/20 15:00 23:00 07:00 Intake Total 420 ml 640 ml Balance 420 ml 640 ml Justicifation of Admission Dx: Justifications for Admission: Justification of Admission Dx: No HILDA HERNANDEZ MD Jun 10, 2020 09:31
--- NOTE | 2020-06-10 10:13 | PDOC ---
Infectious Disease Note Subjective: Subjective Patient complains of pain and swelling over the right cheek but improving slowly Pain is under control with pain medication Denies any ear pain or drainage Some associated headache with return of right cheek pain Denies fever, nausea, vomiting, shortness of breath, diarrhea, abdominal pain, r christiano Otherwise as above Vital Signs: Vital Signs Vital Signs Date Time Temp Pulse Resp B/P (MAP) Pulse Ox O2 Delivery O2 Flow Rate FiO2 06/10/20 09:20 61 136/52 06/10/20 07:06 18 06/10/20 07:00 97.8 94 Room Air 97.8 Physical Exam: PHYSICAL EXAM GENERAL: The patient is alert oriented x3 in nad HEENT: Pupils equally round. Oropharynx pink, moist. She has upper dentures and partial on lower. Right cheek and jaw area is swollen and very tender. States is improving locally. There are no lesions seen in the mouth. NECK: Supple. LUNGS: Clear to auscultation. HEART: S1 and S2. ABDOMEN: Obese, soft, nontender. EXTREMITIES: No gross edema or cyanosis. SKIN: Warm to touch. No signs of rash. NEUROLOGIC: Alert and answering questions appropriately. Medications: Inpatient Meds: Current Medications Medications (Trade) Dose Ordered Sig/Natasha Start Time Stop Time Status Last Admin Dose Admin Acetaminophen (Tylenol) 650 mg PRN Q4HRS PRN 06/08/20 17:30 06/09/20 17:29 DC Acetaminophen/ Hydrocodone Bitart (Lortab 7.5/325) 1 tab PRN TID PRN 06/09/20 11:15 06/10/20 06:06 1 TAB Ampicillin Sodium/ Sulbactam Sodium 3 gm/Sodium Chloride 100 ml @ 200 mls/hr Q6HRS 06/09/20 12:00 06/10/20 05:44 200 MLS/HR Carvedilol (Coreg) 12.5 mg BIDWMEALS 06/09/20 09:00 06/10/20 09:20 12.5 MG Ceftriaxone Sodium (Rocephin) 1 gm Q24H 06/09/20 18:00 06/09/20 12:00 DC Clindamycin HCl (Cleocin) 600 mg 1X ONCE 06/08/20 16:15 06/08/20 16:16 DC 06/08/20 16:59 600 MG Dextrose (Dextrose 50%-Water Syringe) 12.5 gm PRN Q15MIN PRN 06/09/20 11:30 Diphenhydramine HCl (Benadryl) 25 mg PRN QHS PRN 06/09/20 08:45 06/10/20 01:59 25 MG Fluoxetine HCl (PROzac) 20 mg DAILY 06/09/20 09:00 06/10/20 09:20 20 MG Heparin Sodium (Porcine) (Heparin Sodium) 5,000 unit Q12HR 06/08/20 21:00 06/10/20 09:27 5,000 UNIT Insulin Glargine (Lantus Syringe) 20 unit QHS 06/09/20 21:00 Insulin Human Lispro (HumaLOG) 0-9 UNITS TIDWMEALS 06/09/20 12:00 06/10/20 09:22 10 UNITS Lactobacillus Rhamnosus (Culturelle) 1 cap BID 06/09/20 21:00 06/10/20 09:19 1 CAP Levothyroxine Sodium (Synthroid) 200 mcg DAILY06 06/09/20 10:30 06/10/20 05:45 200 MCG Linezolid/Dextrose 300 ml @ 300 mls/hr Q12HR 06/09/20 12:00 06/10/20 09:19 300 MLS/HR Nitroglycerin (Nitrostat) 0.4 mg PRN Q5MIN PRN 06/09/20 08:45 Non-Formulary Medication (Insulin Aspart (Novolog Flexpen)) 100 unit TID PRN PRN 06/09/20 11:15 06/09/20 11:29 DC Ondansetron HCl (Zofran) 4 mg PRN Q8HRS PRN 06/08/20 17:30 06/09/20 17:29 DC Oxycodone/ Acetaminophen (Percocet 5/325) 2 tab 1X ONCE 06/08/20 16:15 06/08/20 16:16 DC 06/08/20 16:59 2 TAB Senna/Docusate Sodium (Senna Plus) 1 tab PRN DAILY PRN 06/09/20 08:45 06/10/20 09:20 1 TAB Sodium Chloride 1,000 ml @ 125 mls/hr 1X ONCE 06/08/20 18:00 06/09/20 01:59 DC 06/08/20 22:36 125 MLS/HR Spironolactone (Aldactone) 25 mg DAILY 06/09/20 09:00 06/10/20 09:20 25 MG Labs: Lab Laboratory Tests Test 06/09/20 11:16 06/09/20 16:35 06/09/20 20:59 06/10/20 07:59 Glucose (Fingerstick) 301 mg/dL (70-99) 212 mg/dL (70-99) 86 mg/dL (70-99) 179 mg/dL (70-99) Objective: Assessment: 1. Right Facial cellulitis. 2. Dental infection suspected. 3. Leukocytosis. 4. Renal insufficiency. 5. History of VRE. 6. Diabetes. 7. Obesity. 8. Pyuria , UC negative Plan: Plan of Care cont Unasyn and Zyvox s/p ceftriaxone before Dental eval Maintain aspiration precautions Supportive care D/w nursing SHEREE ANTUNEZ MD Jun 10, 2020 10:13
[2020-06-10 11:35] VITALS: BP 139/60
[2020-06-10 12:14] LABS: BASO # 0.1 x10^3/uL (0.0-0.2); BASO % 1 % (0-3); EOS # 0.4 x10^3/uL (0.0-0.7); EOS % 4 % (0-3); HEMATOCRIT 30.7 % (36.0-47.0); HEMOGLOBIN 9.9 g/dL (12.0-15.5); LYMPH # 2.3 x10^3/uL (1.0-4.8); LYMPH % 25 % (24-48); MEAN CORPUSCULAR HEMOGLOBIN 25 pg (25-35); MEAN CORPUSCULAR HGB CONC 32 g/dL (31-37); MEAN CORPUSCULAR VOLUME 76 fL (79-100); MONO # 0.5 x10^3/uL (0.0-1.1); MONO % 6 % (0-9); NEUT # 5.9 x10^3/uL (1.8-7.7); NEUT % 65 % (31-73); PLATELET COUNT 248 x10^3/uL (140-400); RED BLOOD COUNT 4.03 x10^6/uL (3.50-5.40); RED CELL DISTRIBUTION WIDTH 17.6 % (11.5-14.5); WHITE BLOOD COUNT 9.1 x10^3/uL (4.0-11.0)
[2020-06-10 12:35] LABS: ALBUMIN 2.4 g/dL (3.4-5.0); ALBUMIN/GLOBULIN RATIO 0.6 (1.0-1.7); CALCIUM 8.5 mg/dL (8.5-10.1); CREATININE 1.2 mg/dL (0.6-1.0); GFR 43.6; TOTAL BILIRUBIN 0.3 mg/dL (0.2-1.0); TOTAL PROTEIN 6.6 g/dL (6.4-8.2)
[2020-06-10 15:18] VITALS: BP 129/48
[2020-06-10 19:00] VITALS: BP 154/56
[2020-06-10] MEDS: INSULIN GLARGINE SYRINGE. SQ SCH (21:00)
[2020-06-10 23:00] VITALS: BP 155/55
[2020-06-11 03:00] VITALS: BP 132/51
--- NOTE | 2020-06-11 04:43 | EKG ---
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
[2020-06-11] MEDS: AMPICILLIN/SULBACTAM 3 GM in IV NORMAL SALINE 100ML 100 ML IV SCH ×3 (05:33→17:16)
[2020-06-11] MEDS: LEVOTHYROXINE 100 MCG TABLET PO SCH (05:34)
[2020-06-11 07:26] VITALS: BP 153/51
[2020-06-11] MEDS: CARVEDILOL 12.5 MG TABLET. PO SCH ×2 (08:58→16:41)
[2020-06-11] MEDS: FLUoxetine HCL 20 MG CAPSULE PO SCH (08:58)
[2020-06-11] MEDS: SPIRONOLACTONE 25 MG TABLET PO SCH (08:58)
[2020-06-11] MEDS: LACTOBACILLUS RHAMNOSUS GG 1 CAPSULE. PO SCH ×2 (09:04→22:46)
[2020-06-11] MEDS: HEPARIN for SUB-Q USE 5,000 UNIT/ML VIAL. SQ SCH ×2 (09:04→22:51)
[2020-06-11] MEDS: INSULIN LISPRO 300 UNITS/3 ML VIAL. SQ SCH ×3 (09:07→16:35)
--- NOTE | 2020-06-11 09:27 | PDOC ---
PROGRESS NOTES Chief Complaint Chief Complaint A/P: Facial cellulitis - ID consulted as well as oral surgeon Sepsis - with facial cellulitis Acute reactive dental infection Elevated alkaline phosphatase Acute renal failurevasomotor nephropathy Dyslipidemia Hypertension UTI - will treat empirically, f/u culture results Urinary incontinence - will have bladder training with OT Morbid obesity BMI 50 - counseled on weight loss Bilateral knee pain left greater than right - improved after prior injections Diabetes type 2 uncontrolled - will place on basal bolus plus regimen in house Hypertension, controlled - cont meds Hypothyroidism - TSH WNL, will cont 200mcg levothyroxine dosing FEN - ADA diet PPX - lovenox FULL CODE Dispo -inpatient likely 2 midnights PLAN Admit to the medicine CONSULT ID pending U cx Continue IVF oral surgery consult pending avoid nephrotoxic agents continue ADA diet RISS Heparin DVT prophy FULL code iv Unasyn and Zyvox D/W RN 06/11 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 Still having right-sided facial swelling and pain. No pain on putting her upper dentures in. No shortness of breath or chest pain. Still has dysuria and episodic incontinence. Vitals Vitals Vital Signs Date Time Temp Pulse Resp B/P (MAP) Pulse Ox O2 Delivery O2 Flow Rate FiO2 06/11/20 08:58 62 153/51 06/11/20 07:40 Room Air 06/11/20 07:26 98.0 18 95 98.0 Physical Exam Physical Exam GENERAL: The patient is alert oriented x3 in nad HEENT: Pupils equally round. Oropharynx pink, moist. She has upper dentures and partial on lower. Right cheek and jaw area is swollen and very tender. States is improving locally. There are no lesions seen in the mouth. NECK: Supple. LUNGS: Clear to auscultation. HEART: S1 and S2. ABDOMEN: Obese, soft, nontender. EXTREMITIES: No gross edema or cyanosis. SKIN: Warm to touch. No signs of rash. NEUROLOGIC: Alert and answering questions appropriately. General: Alert, Oriented X3, Cooperative, mild distress Heart: Regular rate, Normal S1, Normal S2 Lungs: Clear Abdomen: Normal bowel sounds, Soft Extremities: No cyanosis Labs LABS Laboratory Tests Test 06/10/20 11:55 06/10/20 16:39 06/10/20 20:34 06/11/20 07:45 White Blood Count 9.1 x10^3/uL (4.0-11.0) Red Blood Count 4.03 x10^6/uL (3.50-5.40) Hemoglobin 9.9 g/dL (12.0-15.5) Hematocrit 30.7 % (36.0-47.0) Mean Corpuscular Volume 76 fL (79-100) Mean Corpuscular Hemoglobin 25 pg (25-35) Mean Corpuscular Hemoglobin Concent 32 g/dL (31-37) Red Cell Distribution Width 17.6 % (11.5-14.5) Platelet Count 248 x10^3/uL (140-400) Neutrophils (%) (Auto) 65 % (31-73) Lymphocytes (%) (Auto) 25 % (24-48) Monocytes (%) (Auto) 6 % (0-9) Eosinophils (%) (Auto) 4 % (0-3) Basophils (%) (Auto) 1 % (0-3) Neutrophils # (Auto) 5.9 x10^3/uL (1.8-7.7) Lymphocytes # (Auto) 2.3 x10^3/uL (1.0-4.8) Monocytes # (Auto) 0.5 x10^3/uL (0.0-1.1) Eosinophils # (Auto) 0.4 x10^3/uL (0.0-0.7) Basophils # (Auto) 0.1 x10^3/uL (0.0-0.2) Sodium Level 134 mmol/L (136-145) Potassium Level 4.0 mmol/L (3.5-5.1) Chloride Level 100 mmol/L (98-107) Carbon Dioxide Level 27 mmol/L (21-32) Anion Gap 7 (6-14) Blood Urea Nitrogen 15 mg/dL (7-20) Creatinine 1.2 mg/dL (0.6-1.0) Estimated GFR (Cockcroft-Gault) 43.6 BUN/Creatinine Ratio 13 (6-20) Glucose Level 264 mg/dL (70-99) Glucose (Fingerstick) 235 mg/dL (70-99) 127 mg/dL (70-99) 225 mg/dL (70-99) 177 mg/dL (70-99) Calcium Level 8.5 mg/dL (8.5-10.1) Total Bilirubin 0.3 mg/dL (0.2-1.0) Aspartate Amino Transf (AST/SGOT) 14 U/L (15-37) Alanine Aminotransferase (ALT/SGPT) 16 U/L (14-59) Alkaline Phosphatase 110 U/L (46-116) Total Protein 6.6 g/dL (6.4-8.2) Albumin 2.4 g/dL (3.4-5.0) Albumin/Globulin Ratio 0.6 (1.0-1.7) Assessment and Plan Assessmemt and Plan Problems Medical Problems: (1) Dental infection Status: Acute (2) Generalized weakness Status: Acute (3) Urinary tract infection Status: Acute Comment Review of Relevant I have reviewed the following items jina (where applicable) has been applied. Labs Laboratory Tests Test 06/09/20 11:16 06/09/20 16:35 06/09/20 20:59 06/10/20 07:59 Glucose (Fingerstick) 301 mg/dL (70-99) 212 mg/dL (70-99) 86 mg/dL (70-99) 179 mg/dL (70-99) Test 06/10/20 11:55 06/10/20 16:39 06/10/20 20:34 06/11/20 07:45 White Blood Count 9.1 x10^3/uL (4.0-11.0) Red Blood Count 4.03 x10^6/uL (3.50-5.40) Hemoglobin 9.9 g/dL (12.0-15.5) Hematocrit 30.7 % (36.0-47.0) Mean Corpuscular Volume 76 fL (79-100) Mean Corpuscular Hemoglobin 25 pg (25-35) Mean Corpuscular Hemoglobin Concent 32 g/dL (31-37) Red Cell Distribution Width 17.6 % (11.5-14.5) Platelet Count 248 x10^3/uL (140-400) Neutrophils (%) (Auto) 65 % (31-73) Lymphocytes (%) (Auto) 25 % (24-48) Monocytes (%) (Auto) 6 % (0-9) Eosinophils (%) (Auto) 4 % (0-3) Basophils (%) (Auto) 1 % (0-3) Neutrophils # (Auto) 5.9 x10^3/uL (1.8-7.7) Lymphocytes # (Auto) 2.3 x10^3/uL (1.0-4.8) Monocytes # (Auto) 0.5 x10^3/uL (0.0-1.1) Eosinophils # (Auto) 0.4 x10^3/uL (0.0-0.7) Basophils # (Auto) 0.1 x10^3/uL (0.0-0.2) Sodium Level 134 mmol/L (136-145) Potassium Level 4.0 mmol/L (3.5-5.1) Chloride Level 100 mmol/L (98-107) Carbon Dioxide Level 27 mmol/L (21-32) Anion Gap 7 (6-14) Blood Urea Nitrogen 15 mg/dL (7-20) Creatinine 1.2 mg/dL (0.6-1.0) Estimated GFR (Cockcroft-Gault) 43.6 BUN/Creatinine Ratio 13 (6-20) Glucose Level 264 mg/dL (70-99) Glucose (Fingerstick) 235 mg/dL (70-99) 127 mg/dL (70-99) 225 mg/dL (70-99) 177 mg/dL (70-99) Calcium Level 8.5 mg/dL (8.5-10.1) Total Bilirubin 0.3 mg/dL (0.2-1.0) Aspartate Amino Transf (AST/SGOT) 14 U/L (15-37) Alanine Aminotransferase (ALT/SGPT) 16 U/L (14-59) Alkaline Phosphatase 110 U/L (46-116) Total Protein 6.6 g/dL (6.4-8.2) Albumin 2.4 g/dL (3.4-5.0) Albumin/Globulin Ratio 0.6 (1.0-1.7) Laboratory Tests Test 06/10/20 11:55 06/10/20 16:39 06/10/20 20:34 06/11/20 07:45 White Blood Count 9.1 x10^3/uL (4.0-11.0) Red Blood Count 4.03 x10^6/uL (3.50-5.40) Hemoglobin 9.9 g/dL (12.0-15.5) Hematocrit 30.7 % (36.0-47.0) Mean Corpuscular Volume 76 fL (79-100) Mean Corpuscular Hemoglobin 25 pg (25-35) Mean Corpuscular Hemoglobin Concent 32 g/dL (31-37) Red Cell Distribution Width 17.6 % (11.5-14.5) Platelet Count 248 x10^3/uL (140-400) Neutrophils (%) (Auto) 65 % (31-73) Lymphocytes (%) (Auto) 25 % (24-48) Monocytes (%) (Auto) 6 % (0-9) Eosinophils (%) (Auto) 4 % (0-3) Basophils (%) (Auto) 1 % (0-3) Neutrophils # (Auto) 5.9 x10^3/uL (1.8-7.7) Lymphocytes # (Auto) 2.3 x10^3/uL (1.0-4.8) Monocytes # (Auto) 0.5 x10^3/uL (0.0-1.1) Eosinophils # (Auto) 0.4 x10^3/uL (0.0-0.7) Basophils # (Auto) 0.1 x10^3/uL (0.0-0.2) Sodium Level 134 mmol/L (136-145) Potassium Level 4.0 mmol/L (3.5-5.1) Chloride Level 100 mmol/L (98-107) Carbon Dioxide Level 27 mmol/L (21-32) Anion Gap 7 (6-14) Blood Urea Nitrogen 15 mg/dL (7-20) Creatinine 1.2 mg/dL (0.6-1.0) Estimated GFR (Cockcroft-Gault) 43.6 BUN/Creatinine Ratio 13 (6-20) Glucose Level 264 mg/dL (70-99) Glucose (Fingerstick) 235 mg/dL (70-99) 127 mg/dL (70-99) 225 mg/dL (70-99) 177 mg/dL (70-99) Calcium Level 8.5 mg/dL (8.5-10.1) Total Bilirubin 0.3 mg/dL (0.2-1.0) Aspartate Amino Transf (AST/SGOT) 14 U/L (15-37) Alanine Aminotransferase (ALT/SGPT) 16 U/L (14-59) Alkaline Phosphatase 110 U/L (46-116) Total Protein 6.6 g/dL (6.4-8.2) Albumin 2.4 g/dL (3.4-5.0) Albumin/Globulin Ratio 0.6 (1.0-1.7) Microbiology 06/08/20 Urine Culture - Final, Complete Medications Current Medications Clindamycin HCl (Cleocin) 600 mg 1X ONCE PO Last administered on 06/08/20at 16:59; Start 06/08/20 at 16:15; Stop 06/08/20 at 16:16; Status DC Oxycodone/ Acetaminophen (Percocet 5/325) 2 tab 1X ONCE PO Last administered on 06/08/20at 16:59; Start 06/08/20 at 16:15; Stop 06/08/20 at 16:16; Status DC Sodium Chloride 1,000 ml @ 1,000 mls/hr 1X ONCE IV Last administered on 06/08/20at 16:44; Start 06/08/20 at 16:30; Stop 06/08/20 at 17:29; Status DC Ceftriaxone Sodium (Rocephin) 1 gm 1X ONCE IVP Last administered on 06/08/20at 17:49; Start 06/08/20 at 17:30; Stop 06/08/20 at 17:32; Status DC Ondansetron HCl (Zofran) 4 mg PRN Q8HRS PRN IV NAUSEA/VOMITING; Start 06/08/20 at 17:30; Stop 06/09/20 at 17:29; Status DC Sodium Chloride 1,000 ml @ 125 mls/hr Q8H IV Last administered on 06/09/20at 10:33; Start 06/08/20 at 17:27; Stop 06/09/20 at 17:26; Status DC Acetaminophen (Tylenol) 650 mg PRN Q4HRS PRN PO FEVER > 100.3'F; Start 06/08/20 at 17:30; Stop 06/09/20 at 17:29; Status DC Sodium Chloride 1,000 ml @ 125 mls/hr 1X ONCE IV Last administered on 06/08/20at 22:36; Start 06/08/20 at 18:00; Stop 06/09/20 at 01:59; Status DC Heparin Sodium (Porcine) (Heparin Sodium) 5,000 unit Q12HR SQ Last administered on 06/11/20at 09:04; Start 06/08/20 at 21:00 Ceftriaxone Sodium (Rocephin) 1 gm Q24H IVP ; Start 06/09/20 at 18:00; Stop 06/09/20 at 12:00; Status DC Diphenhydramine HCl (Benadryl) 25 mg PRN QHS PRN PO INSOMNIA Last administered on 06/10/20at 01:59; Start 06/09/20 at 08:45 Fluoxetine HCl (PROzac) 20 mg DAILY PO Last administered on 06/11/20at 08:58; Start 06/09/20 at 09:00 Nitroglycerin (Nitrostat) 0.4 mg PRN Q5MIN PRN SL CHEST PAIN; Start 06/09/20 at 08:45 Senna/Docusate Sodium (Senna Plus) 1 tab PRN DAILY PRN PO CONSTIPATION Last administered on 06/10/20at 09:20; Start 06/09/20 at 08:45 Spironolactone (Aldactone) 25 mg DAILY PO Last administered on 06/11/20at 08:58; Start 06/09/20 at 09:00 Carvedilol (Coreg) 12.5 mg BIDWMEALS PO Last administered on 06/11/20at 08:58; Start 06/09/20 at 09:00 Levothyroxine Sodium (Synthroid) 200 mcg DAILY06 PO Last administered on 06/11/20at 05:34; Start 06/09/20 at 10:30 Lactobacillus Rhamnosus (Culturelle) 1 cap BID PO Last administered on 06/11/20at 09:04; Start 06/09/20 at 21:00 Acetaminophen/ Hydrocodone Bitart (Lortab 7.5/325) 1 tab PRN TID PRN PO MODERATE PAIN Last administered on 06/10/20at 22:23; Start 06/09/20 at 11:15 Non-Formulary Medication (Insulin Aspart (Novolog Flexpen)) 100 unit TID PRN PRN SQ hyperglycemia; Start 06/09/20 at 11:15; Stop 06/09/20 at 11:29; Status DC Insulin Glargine (Lantus Syringe) 20 unit QHS SQ Last administered on 06/10/20at 21:00; Start 06/09/20 at 21:00 Insulin Human Lispro (HumaLOG) 0-9 UNITS TIDWMEALS SQ Last administered on 06/11/20at 09:07; Start 06/09/20 at 12:00 Dextrose (Dextrose 50%-Water Syringe) 12.5 gm PRN Q15MIN PRN IV SEE COMMENTS; Start 06/09/20 at 11:30 Ampicillin Sodium/ Sulbactam Sodium 3 gm/Sodium Chloride 100 ml @ 200 mls/hr Q6HRS IV Last administered on 06/11/20at 05:33; Start 06/09/20 at 12:00 Linezolid/Dextrose 300 ml @ 300 mls/hr Q12HR IV Last administered on 06/11/20at 09:00; Start 06/09/20 at 12:00 Active Scripts Active Novolog Flexpen (Insulin Aspart) 100 Unit/1 Ml Insuln.pen 100 Unit SQ TID PRN PRN Reported Fluoxetine Hcl 20 Mg Capsule 20 Mg PO DAILY 90 Days Lantus Solostar (Insulin Glargine,Hum.rec.anlog) 100 Unit/1 Ml Insuln.pen 20 Unit SQ QHS Senokot-S Tablet (Sennosides/Docusate Sodium) 1 Each Tablet 1 Each PO PRN DAILY PRN Benadryl (Diphenhydramine Hcl) 25 Mg Capsule 25 Mg PO PRN QHS PRN Acetaminophen 500 Mg Tablet 500 Mg PO PRN Q6HRS PRN Spironolactone 25 Mg Tablet 25 Mg PO DAILY Colace (Docusate Sodium) 100 Mg Capsule 100 Mg PO PRN DAILY PRN Coreg (Carvedilol) 25 Mg Tablet 12.5 Mg PO BIDWMEALS Nitrostat (Nitroglycerin) 0.4 Mg Tab.subl 0.4 Mg SL PRN Q5MIN PRN Hydrocodone-Apap 7.5-325 (Hydrocodone Bit/Acetaminophen) 1 Tab Tablet 1 Tab PO PRN TID PRN Synthroid (Levothyroxine Sodium) 200 Mcg Tablet 200 Mcg PO DAILY Vitals/I & O Vital Sign - Last 24 Hours 06/10/20 06/10/20 06/10/20 06/10/20 11:35 15:18 17:29 19:00 Temp 98.3 98.4 98.2 98.3 98.4 98.2 Pulse 63 63 63 75 Resp 20 18 18 B/P (MAP) 139/60 (86) 129/48 (75) 129/48 154/56 (88) Pulse Ox 95 93 93 O2 Delivery Room Air Room Air Room Air 06/10/20 06/10/20 06/10/20 06/10/20 19:55 22:23 23:00 23:23 Temp 98.0 98.0 Pulse 55 Resp 20 B/P (MAP) 155/55 (88) Pulse Ox 94 O2 Delivery Room Air Room Air Room Air Room Air 06/11/20 06/11/20 06/11/20 06/11/20 03:00 07:26 07:40 08:58 Temp 97.9 98.0 97.9 98.0 Pulse 60 62 62 Resp 18 18 B/P (MAP) 132/51 (78) 153/51 (85) 153/51 Pulse Ox 93 95 O2 Delivery Room Air Room Air Room Air Intake and Output 06/10/20 06/10/20 06/11/20 15:00 23:00 07:00 Intake Total 120 ml Balance 120 ml Justicifation of Admission Dx: Justifications for Admission: Justification of Admission Dx: No JAIRO CHRISTENSEN MD Jun 11, 2020 09:27
--- NOTE | 2020-06-11 09:51 | PDOC ---
Infectious Disease Note Subjective: Subjective Patient states pain and swelling over the right cheek improving slowly Pain is under control with pain medication Denies any ear pain or drainage Denies fever, nausea, vomiting, shortness of breath, diarrhea, abdominal pain, rash Otherwise as above Vital Signs: Vital Signs Vital Signs Date Time Temp Pulse Resp B/P (MAP) Pulse Ox O2 Delivery O2 Flow Rate FiO2 06/11/20 08:58 62 153/51 06/11/20 07:40 Room Air 06/11/20 07:26 98.0 18 95 98.0 Physical Exam: PHYSICAL EXAM GENERAL: The patient is alert oriented x3 in nad HEENT: Pupils equally round. Oropharynx pink, moist. She has upper dentures and partial on lower. Right cheek and jaw area is swollen and very tender. Sta dwight is improving locally. There are no lesions seen in the mouth. NECK: Supple. LUNGS: Clear to auscultation. HEART: S1 and S2. ABDOMEN: Obese, soft, nontender. EXTREMITIES: No gross edema or cyanosis. SKIN: Warm to touch. No signs of rash. NEUROLOGIC: Alert and answering questions appropriately. Medications: Inpatient Meds: Current Medications Medications (Trade) Dose Ordered Sig/Natasha Start Time Stop Time Status Last Admin Dose Admin Acetaminophen (Tylenol) 650 mg PRN Q4HRS PRN 06/08/20 17:30 06/09/20 17:29 DC Acetaminophen/ Hydrocodone Bitart (Lortab 7.5/325) 1 tab PRN TID PRN 06/09/20 11:15 06/10/20 22:23 1 TAB Ampicillin Sodium/ Sulbactam Sodium 3 gm/Sodium Chloride 100 ml @ 200 mls/hr Q6HRS 06/09/20 12:00 06/11/20 05:33 200 MLS/HR Carvedilol (Coreg) 12.5 mg BIDWMEALS 06/09/20 09:00 06/11/20 08:58 12.5 MG Ceftriaxone Sodium (Rocephin) 1 gm Q24H 06/09/20 18:00 06/09/20 12:00 DC Clindamycin HCl (Cleocin) 600 mg 1X ONCE 06/08/20 16:15 06/08/20 16:16 DC 06/08/20 16:59 600 MG Dextrose (Dextrose 50%-Water Syringe) 12.5 gm PRN Q15MIN PRN 06/09/20 11:30 Diphenhydramine HCl (Benadryl) 25 mg PRN QHS PRN 06/09/20 08:45 06/10/20 01:59 25 MG Fluoxetine HCl (PROzac) 20 mg DAILY 06/09/20 09:00 06/11/20 08:58 20 MG Heparin Sodium (Porcine) (Heparin Sodium) 5,000 unit Q12HR 06/08/20 21:00 06/11/20 09:04 5,000 UNIT Insulin Glargine (Lantus Syringe) 20 unit QHS 06/09/20 21:00 06/10/20 21:00 20 UNIT Insulin Human Lispro (HumaLOG) 0-9 UNITS TIDWMEALS 06/09/20 12:00 06/11/20 09:07 10 UNITS Lactobacillus Rhamnosus (Culturelle) 1 cap BID 06/09/20 21:00 06/11/20 09:04 1 CAP Levothyroxine Sodium (Synthroid) 200 mcg DAILY06 06/09/20 10:30 06/11/20 05:34 200 MCG Linezolid/Dextrose 300 ml @ 300 mls/hr Q12HR 06/09/20 12:00 06/11/20 09:00 300 MLS/HR Nitroglycerin (Nitrostat) 0.4 mg PRN Q5MIN PRN 06/09/20 08:45 Non-Formulary Medication (Insulin Aspart (Novolog Flexpen)) 100 unit TID PRN PRN 06/09/20 11:15 06/09/20 11:29 DC Ondansetron HCl (Zofran) 4 mg PRN Q8HRS PRN 06/08/20 17:30 06/09/20 17:29 DC Oxycodone/ Acetaminophen (Percocet 5/325) 2 tab 1X ONCE 06/08/20 16:15 06/08/20 16:16 DC 06/08/20 16:59 2 TAB Senna/Docusate Sodium (Senna Plus) 1 tab PRN DAILY PRN 06/09/20 08:45 06/10/20 09:20 1 TAB Sodium Chloride 1,000 ml @ 125 mls/hr 1X ONCE 06/08/20 18:00 06/09/20 01:59 DC 06/08/20 22:36 125 MLS/HR Spironolactone (Aldactone) 25 mg DAILY 06/09/20 09:00 06/11/20 08:58 25 MG Labs: Lab Laboratory Tests Test 06/10/20 11:55 06/10/20 16:39 06/10/20 20:34 06/11/20 07:45 White Blood Count 9.1 x10^3/uL (4.0-11.0) Red Blood Count 4.03 x10^6/uL (3.50-5.40) Hemoglobin 9.9 g/dL (12.0-15.5) Hematocrit 30.7 % (36.0-47.0) Mean Corpuscular Volume 76 fL (79-100) Mean Corpuscular Hemoglobin 25 pg (25-35) Mean Corpuscular Hemoglobin Concent 32 g/dL (31-37) Red Cell Distribution Width 17.6 % (11.5-14.5) Platelet Count 248 x10^3/uL (140-400) Neutrophils (%) (Auto) 65 % (31-73) Lymphocytes (%) (Auto) 25 % (24-48) Monocytes (%) (Auto) 6 % (0-9) Eosinophils (%) (Auto) 4 % (0-3) Basophils (%) (Auto) 1 % (0-3) Neutrophils # (Auto) 5.9 x10^3/uL (1.8-7.7) Lymphocytes # (Auto) 2.3 x10^3/uL (1.0-4.8) Monocytes # (Auto) 0.5 x10^3/uL (0.0-1.1) Eosinophils # (Auto) 0.4 x10^3/uL (0.0-0.7) Basophils # (Auto) 0.1 x10^3/uL (0.0-0.2) Sodium Level 134 mmol/L (136-145) Potassium Level 4.0 mmol/L (3.5-5.1) Chloride Level 100 mmol/L (98-107) Carbon Dioxide Level 27 mmol/L (21-32) Anion Gap 7 (6-14) Blood Urea Nitrogen 15 mg/dL (7-20) Creatinine 1.2 mg/dL (0.6-1.0) Estimated GFR (Cockcroft-Gault) 43.6 BUN/Creatinine Ratio 13 (6-20) Glucose Level 264 mg/dL (70-99) Glucose (Fingerstick) 235 mg/dL (70-99) 127 mg/dL (70-99) 225 mg/dL (70-99) 177 mg/dL (70-99) Calcium Level 8.5 mg/dL (8.5-10.1) Total Bilirubin 0.3 mg/dL (0.2-1.0) Aspartate Amino Transf (AST/SGOT) 14 U/L (15-37) Alanine Aminotransferase (ALT/SGPT) 16 U/L (14-59) Alkaline Phosphatase 110 U/L (46-116) Total Protein 6.6 g/dL (6.4-8.2) Albumin 2.4 g/dL (3.4-5.0) Albumin/Globulin Ratio 0.6 (1.0-1.7) Objective: Assessment: 1. Right Facial cellulitis. 2. Dental infection suspected. 3. Leukocytosis. 4. Renal insufficiency. 5. History of VRE. 6. Diabetes. 7. Obesity. 8. Pyuria , UC negative Plan: Plan of Care cont Unasyn and Zyvox s/p ceftriaxone before Dental eval pending Local care Maintain aspiration precautions Supportive care D/w nursing SHEREE ANTUNEZ MD Jun 11, 2020 09:51
--- NOTE | 2020-06-11 11:01 | NUR ---
SW following. Discussed with RN, pt from home with , room air. Dr. Yeager consulted. PT/OT being ordered. Pt currently on IV abx. SW will continue to follow.
[2020-06-11 11:07] VITALS: BP 162/60
[2020-06-11] MEDS: HYDROcodone/APAP 7.5/325MG 1 TAB TABLET PO PRN ×2 (15:12→22:57)
[2020-06-11 15:39] VITALS: BP 156/53
[2020-06-11 19:00] VITALS: BP 147/57
[2020-06-11] MEDS: INSULIN GLARGINE SYRINGE. SQ SCH (22:50)
[2020-06-11 23:00] VITALS: BP 149/57
[2020-06-12 01:08] LABS: HEMOGLOBIN A1C 8.5 % (4.8-5.6)
[2020-06-12] MEDS: AMPICILLIN/SULBACTAM 3 GM in IV NORMAL SALINE 100ML 100 ML IV SCH ×5 (01:29→22:58)
[2020-06-12 03:00] VITALS: BP 130/52
[2020-06-12 05:30] LABS: BASO # 0.1 x10^3/uL (0.0-0.2); BASO % 1 % (0-3); EOS # 0.5 x10^3/uL (0.0-0.7); EOS % 7 % (0-3); HEMATOCRIT 30.4 % (36.0-47.0); HEMOGLOBIN 9.7 g/dL (12.0-15.5); LYMPH # 2.6 x10^3/uL (1.0-4.8); LYMPH % 34 % (24-48); MEAN CORPUSCULAR HEMOGLOBIN 24 pg (25-35); MEAN CORPUSCULAR HGB CONC 32 g/dL (31-37); MEAN CORPUSCULAR VOLUME 76 fL (79-100); MONO # 0.5 x10^3/uL (0.0-1.1); MONO % 7 % (0-9); NEUT % 53 % (31-73); PLATELET COUNT 274 x10^3/uL (140-400); RED BLOOD COUNT 3.99 x10^6/uL (3.50-5.40); RED CELL DISTRIBUTION WIDTH 17.4 % (11.5-14.5); WHITE BLOOD COUNT 7.7 x10^3/uL (4.0-11.0)
[2020-06-12 06:03] LABS: ALBUMIN 2.3 g/dL (3.4-5.0); ALBUMIN/GLOBULIN RATIO 0.6 (1.0-1.7); CALCIUM 8.9 mg/dL (8.5-10.1); CREATININE 1.3 mg/dL (0.6-1.0); GFR 39.7; POTASSIUM 3.9 mmol/L (3.5-5.1); TOTAL BILIRUBIN 0.2 mg/dL (0.2-1.0); TOTAL PROTEIN 6.4 g/dL (6.4-8.2)
[2020-06-12 06:13] LABS: C-REACTIVE PROTEIN 32.4 mg/L (0-3.3)
[2020-06-12] MEDS: LEVOTHYROXINE 100 MCG TABLET PO SCH (06:31)
[2020-06-12 07:00] VITALS: BP 163/55
--- NOTE | 2020-06-12 08:38 | PDOC ---
PROGRESS NOTES Chief Complaint Chief Complaint A/P: Facial cellulitis - ID consulted as well as oral surgeon Sepsis - with facial cellulitis Acute reactive dental infection Elevated alkaline phosphatase Acute renal failurevasomotor nephropathy Dyslipidemia Hypertension UTI - will treat empirically, f/u culture results Urinary incontinence - will have bladder training with OT Morbid obesity BMI 50 - counseled on weight loss Bilateral knee pain left greater than right - improved after prior injections Diabetes type 2 uncontrolled - will place on basal bolus plus regimen while hospitalized. A1c 8.5 Hypertension, controlled - cont meds Hypothyroidism - TSH WNL, will cont 200mcg levothyroxine dosing FEN - ADA diet PPX - lovenox FULL CODE Dispo -inpatient likely 2 midnights History of Present Illness History of Present Illness Ms Kenney is a 74yo F w/ PMHx DM2, HLD, HTN, CAD s/p stenting who p/w right sided facial pain, found with cellulitis as well as UTI. 06/10: Still having right-sided facial swelling and pain. No pain on putting her upper dentures in. No shortness of breath or chest pain. Still has dysuria and episodic incontinence. 06/11: Urine culture negative. Right face swelling improved. Oral surgery consult pending. Afebrile. Facial swelling is improved. She is very weak was barely able to get up to the chair on her own. No shortness of breath or chest pain Vitals Vitals Vital Signs Date Time Temp Pulse Resp B/P (MAP) Pulse Ox O2 Delivery O2 Flow Rate FiO2 06/12/20 03:00 98.2 54 18 130/52 (78) 96 Room Air 98.2 Physical Exam Physical Exam GENERAL: The patient is alert oriented x3 in nad HEENT: Pupils equally round. Oropharynx pink, moist. She has upper dentures and partial on lower. Right cheek and jaw area is swollen and very tender. States is improving locally. There are no lesions seen in the mouth. NECK: Supple. LUNGS: Clear to auscultation. HEART: S1 and S2. ABDOMEN: Obese, soft, nontender. EXTREMITIES: No gross edema or cyanosis. SKIN: Warm to touch. No signs of rash. NEUROLOGIC: Alert and answering questions appropriately. General: Alert, Oriented X3, Cooperative, mild distress Heart: Regular rate, Normal S1, Normal S2 Lungs: Clear Abdomen: Normal bowel sounds, Soft Extremities: No cyanosis Labs LABS Laboratory Tests Test 06/11/20 13:00 06/11/20 15:18 06/11/20 16:33 06/11/20 21:35 Glucose (Fingerstick) 191 mg/dL (70-99) 113 mg/dL (70-99) 196 mg/dL (70-99) Hemoglobin A1c 8.5 % (4.8-5.6) Iron Level 21 ug/dL (50-170) Total Iron Binding Capacity 291 ug/dL (250-450) Iron Saturation 7 % (15-34) Ferritin 47 ng/mL (8-252) Test 06/12/20 05:05 06/12/20 08:01 White Blood Count 7.7 x10^3/uL (4.0-11.0) Red Blood Count 3.99 x10^6/uL (3.50-5.40) Hemoglobin 9.7 g/dL (12.0-15.5) Hematocrit 30.4 % (36.0-47.0) Mean Corpuscular Volume 76 fL (79-100) Mean Corpuscular Hemoglobin 24 pg (25-35) Mean Corpuscular Hemoglobin Concent 32 g/dL (31-37) Red Cell Distribution Width 17.4 % (11.5-14.5) Platelet Count 274 x10^3/uL (140-400) Neutrophils (%) (Auto) 53 % (31-73) Lymphocytes (%) (Auto) 34 % (24-48) Monocytes (%) (Auto) 7 % (0-9) Eosinophils (%) (Auto) 7 % (0-3) Basophils (%) (Auto) 1 % (0-3) Neutrophils # (Auto) 4.0 x10^3/uL (1.8-7.7) Lymphocytes # (Auto) 2.6 x10^3/uL (1.0-4.8) Monocytes # (Auto) 0.5 x10^3/uL (0.0-1.1) Eosinophils # (Auto) 0.5 x10^3/uL (0.0-0.7) Basophils # (Auto) 0.1 x10^3/uL (0.0-0.2) Sodium Level 137 mmol/L (136-145) Potassium Level 3.9 mmol/L (3.5-5.1) Chloride Level 101 mmol/L (98-107) Carbon Dioxide Level 30 mmol/L (21-32) Anion Gap 6 (6-14) Blood Urea Nitrogen 15 mg/dL (7-20) Creatinine 1.3 mg/dL (0.6-1.0) Estimated GFR (Cockcroft-Gault) 39.7 BUN/Creatinine Ratio 12 (6-20) Glucose Level 189 mg/dL (70-99) Calcium Level 8.9 mg/dL (8.5-10.1) Total Bilirubin 0.2 mg/dL (0.2-1.0) Aspartate Amino Transf (AST/SGOT) 15 U/L (15-37) Alanine Aminotransferase (ALT/SGPT) 15 U/L (14-59) Alkaline Phosphatase 111 U/L (46-116) C-Reactive Protein, Quantitative 32.4 mg/L (0-3.3) Total Protein 6.4 g/dL (6.4-8.2) Albumin 2.3 g/dL (3.4-5.0) Albumin/Globulin Ratio 0.6 (1.0-1.7) Glucose (Fingerstick) 191 mg/dL (70-99) Assessment and Plan Assessmemt and Plan Problems Medical Problems: (1) Dental infection Status: Acute (2) Generalized weakness Status: Acute (3) Urinary tract infection Status: Acute Comment Review of Relevant I have reviewed the following items jina (where applicable) has been applied. Labs Laboratory Tests Test 06/10/20 11:55 06/10/20 16:39 06/10/20 20:34 06/11/20 07:45 White Blood Count 9.1 x10^3/uL (4.0-11.0) Red Blood Count 4.03 x10^6/uL (3.50-5.40) Hemoglobin 9.9 g/dL (12.0-15.5) Hematocrit 30.7 % (36.0-47.0) Mean Corpuscular Volume 76 fL (79-100) Mean Corpuscular Hemoglobin 25 pg (25-35) Mean Corpuscular Hemoglobin Concent 32 g/dL (31-37) Red Cell Distribution Width 17.6 % (11.5-14.5) Platelet Count 248 x10^3/uL (140-400) Neutrophils (%) (Auto) 65 % (31-73) Lymphocytes (%) (Auto) 25 % (24-48) Monocytes (%) (Auto) 6 % (0-9) Eosinophils (%) (Auto) 4 % (0-3) Basophils (%) (Auto) 1 % (0-3) Neutrophils # (Auto) 5.9 x10^3/uL (1.8-7.7) Lymphocytes # (Auto) 2.3 x10^3/uL (1.0-4.8) Monocytes # (Auto) 0.5 x10^3/uL (0.0-1.1) Eosinophils # (Auto) 0.4 x10^3/uL (0.0-0.7) Basophils # (Auto) 0.1 x10^3/uL (0.0-0.2) Sodium Level 134 mmol/L (136-145) Potassium Level 4.0 mmol/L (3.5-5.1) Chloride Level 100 mmol/L (98-107) Carbon Dioxide Level 27 mmol/L (21-32) Anion Gap 7 (6-14) Blood Urea Nitrogen 15 mg/dL (7-20) Creatinine 1.2 mg/dL (0.6-1.0) Estimated GFR (Cockcroft-Gault) 43.6 BUN/Creatinine Ratio 13 (6-20) Glucose Level 264 mg/dL (70-99) Glucose (Fingerstick) 235 mg/dL (70-99) 127 mg/dL (70-99) 225 mg/dL (70-99) 177 mg/dL (70-99) Calcium Level 8.5 mg/dL (8.5-10.1) Total Bilirubin 0.3 mg/dL (0.2-1.0) Aspartate Amino Transf (AST/SGOT) 14 U/L (15-37) Alanine Aminotransferase (ALT/SGPT) 16 U/L (14-59) Alkaline Phosphatase 110 U/L (46-116) Total Protein 6.6 g/dL (6.4-8.2) Albumin 2.4 g/dL (3.4-5.0) Albumin/Globulin Ratio 0.6 (1.0-1.7) Test 06/11/20 13:00 06/11/20 15:18 06/11/20 16:33 06/11/20 21:35 Glucose (Fingerstick) 191 mg/dL (70-99) 113 mg/dL (70-99) 196 mg/dL (70-99) Hemoglobin A1c 8.5 % (4.8-5.6) Iron Level 21 ug/dL (50-170) Total Iron Binding Capacity 291 ug/dL (250-450) Iron Saturation 7 % (15-34) Ferritin 47 ng/mL (8-252) Test 06/12/20 05:05 06/12/20 08:01 White Blood Count 7.7 x10^3/uL (4.0-11.0) Red Blood Count 3.99 x10^6/uL (3.50-5.40) Hemoglobin 9.7 g/dL (12.0-15.5) Hematocrit 30.4 % (36.0-47.0) Mean Corpuscular Volume 76 fL (79-100) Mean Corpuscular Hemoglobin 24 pg (25-35) Mean Corpuscular Hemoglobin Concent 32 g/dL (31-37) Red Cell Distribution Width 17.4 % (11.5-14.5) Platelet Count 274 x10^3/uL (140-400) Neutrophils (%) (Auto) 53 % (31-73) Lymphocytes (%) (Auto) 34 % (24-48) Monocytes (%) (Auto) 7 % (0-9) Eosinophils (%) (Auto) 7 % (0-3) Basophils (%) (Auto) 1 % (0-3) Neutrophils # (Auto) 4.0 x10^3/uL (1.8-7.7) Lymphocytes # (Auto) 2.6 x10^3/uL (1.0-4.8) Monocytes # (Auto) 0.5 x10^3/uL (0.0-1.1) Eosinophils # (Auto) 0.5 x10^3/uL (0.0-0.7) Basophils # (Auto) 0.1 x10^3/uL (0.0-0.2) Sodium Level 137 mmol/L (136-145) Potassium Level 3.9 mmol/L (3.5-5.1) Chloride Level 101 mmol/L (98-107) Carbon Dioxide Level 30 mmol/L (21-32) Anion Gap 6 (6-14) Blood Urea Nitrogen 15 mg/dL (7-20) Creatinine 1.3 mg/dL (0.6-1.0) Estimated GFR (Cockcroft-Gault) 39.7 BUN/Creatinine Ratio 12 (6-20) Glucose Level 189 mg/dL (70-99) Calcium Level 8.9 mg/dL (8.5-10.1) Total Bilirubin 0.2 mg/dL (0.2-1.0) Aspartate Amino Transf (AST/SGOT) 15 U/L (15-37) Alanine Aminotransferase (ALT/SGPT) 15 U/L (14-59) Alkaline Phosphatase 111 U/L (46-116) C-Reactive Protein, Quantitative 32.4 mg/L (0-3.3) Total Protein 6.4 g/dL (6.4-8.2) Albumin 2.3 g/dL (3.4-5.0) Albumin/Globulin Ratio 0.6 (1.0-1.7) Glucose (Fingerstick) 191 mg/dL (70-99) Laboratory Tests Test 06/11/20 13:00 06/11/20 15:18 06/11/20 16:33 06/11/20 21:35 Glucose (Fingerstick) 191 mg/dL (70-99) 113 mg/dL (70-99) 196 mg/dL (70-99) Hemoglobin A1c 8.5 % (4.8-5.6) Iron Level 21 ug/dL (50-170) Total Iron Binding Capacity 291 ug/dL (250-450) Iron Saturation 7 % (15-34) Ferritin 47 ng/mL (8-252) Test 06/12/20 05:05 06/12/20 08:01 White Blood Count 7.7 x10^3/uL (4.0-11.0) Red Blood Count 3.99 x10^6/uL (3.50-5.40) Hemoglobin 9.7 g/dL (12.0-15.5) Hematocrit 30.4 % (36.0-47.0) Mean Corpuscular Volume 76 fL (79-100) Mean Corpuscular Hemoglobin 24 pg (25-35) Mean Corpuscular Hemoglobin Concent 32 g/dL (31-37) Red Cell Distribution Width 17.4 % (11.5-14.5) Platelet Count 274 x10^3/uL (140-400) Neutrophils (%) (Auto) 53 % (31-73) Lymphocytes (%) (Auto) 34 % (24-48) Monocytes (%) (Auto) 7 % (0-9) Eosinophils (%) (Auto) 7 % (0-3) Basophils (%) (Auto) 1 % (0-3) Neutrophils # (Auto) 4.0 x10^3/uL (1.8-7.7) Lymphocytes # (Auto) 2.6 x10^3/uL (1.0-4.8) Monocytes # (Auto) 0.5 x10^3/uL (0.0-1.1) Eosinophils # (Auto) 0.5 x10^3/uL (0.0-0.7) Basophils # (Auto) 0.1 x10^3/uL (0.0-0.2) Sodium Level 137 mmol/L (136-145) Potassium Level 3.9 mmol/L (3.5-5.1) Chloride Level 101 mmol/L (98-107) Carbon Dioxide Level 30 mmol/L (21-32) Anion Gap 6 (6-14) Blood Urea Nitrogen 15 mg/dL (7-20) Creatinine 1.3 mg/dL (0.6-1.0) Estimated GFR (Cockcroft-Gault) 39.7 BUN/Creatinine Ratio 12 (6-20) Glucose Level 189 mg/dL (70-99) Calcium Level 8.9 mg/dL (8.5-10.1) Total Bilirubin 0.2 mg/dL (0.2-1.0) Aspartate Amino Transf (AST/SGOT) 15 U/L (15-37) Alanine Aminotransferase (ALT/SGPT) 15 U/L (14-59) Alkaline Phosphatase 111 U/L (46-116) C-Reactive Protein, Quantitative 32.4 mg/L (0-3.3) Total Protein 6.4 g/dL (6.4-8.2) Albumin 2.3 g/dL (3.4-5.0) Albumin/Globulin Ratio 0.6 (1.0-1.7) Glucose (Fingerstick) 191 mg/dL (70-99) Microbiology 06/08/20 Urine Culture - Final, Complete Medications Current Medications Clindamycin HCl (Cleocin) 600 mg 1X ONCE PO Last administered on 06/08/20at 16:59; Start 06/08/20 at 16:15; Stop 06/08/20 at 16:16; Status DC Oxycodone/ Acetaminophen (Percocet 5/325) 2 tab 1X ONCE PO Last administered on 06/08/20at 16:59; Start 06/08/20 at 16:15; Stop 06/08/20 at 16:16; Status DC Sodium Chloride 1,000 ml @ 1,000 mls/hr 1X ONCE IV Last administered on 06/08/20at 16:44; Start 06/08/20 at 16:30; Stop 06/08/20 at 17:29; Status DC Ceftriaxone Sodium (Rocephin) 1 gm 1X ONCE IVP Last administered on 06/08/20at 17:49; Start 06/08/20 at 17:30; Stop 06/08/20 at 17:32; Status DC Ondansetron HCl (Zofran) 4 mg PRN Q8HRS PRN IV NAUSEA/VOMITING; Start 06/08/20 at 17:30; Stop 06/09/20 at 17:29; Status DC Sodium Chloride 1,000 ml @ 125 mls/hr Q8H IV Last administered on 06/09/20at 10:33; Start 06/08/20 at 17:27; Stop 06/09/20 at 17:26; Status DC Acetaminophen (Tylenol) 650 mg PRN Q4HRS PRN PO FEVER > 100.3'F; Start 06/08/20 at 17:30; Stop 06/09/20 at 17:29; Status DC Sodium Chloride 1,000 ml @ 125 mls/hr 1X ONCE IV Last administered on 06/08/20at 22:36; Start 06/08/20 at 18:00; Stop 06/09/20 at 01:59; Status DC Heparin Sodium (Porcine) (Heparin Sodium) 5,000 unit Q12HR SQ Last administered on 06/11/20at 22:51; Start 06/08/20 at 21:00 Ceftriaxone Sodium (Rocephin) 1 gm Q24H IVP ; Start 06/09/20 at 18:00; Stop 06/09/20 at 12:00; Status DC Diphenhydramine HCl (Benadryl) 25 mg PRN QHS PRN PO INSOMNIA Last administered on 06/10/20 01:59; Start 06/09/20 at 08:45 Fluoxetine HCl (PROzac) 20 mg DAILY PO Last administered on 06/11/20at 08:58; Start 06/09/20 at 09:00 Nitroglycerin (Nitrostat) 0.4 mg PRN Q5MIN PRN SL CHEST PAIN; Start 06/09/20 at 08:45 Senna/Docusate Sodium (Senna Plus) 1 tab PRN DAILY PRN PO CONSTIPATION Last administered on 06/10/20 09:20; Start 06/09/20 at 08:45 Spironolactone (Aldactone) 25 mg DAILY PO Last administered on 06/11/20at 08:58; Start 06/09/20 at 09:00 Carvedilol (Coreg) 12.5 mg BIDWMEALS PO Last administered on 06/11/20at 16:41; Start 06/09/20 at 09:00 Levothyroxine Sodium (Synthroid) 200 mcg DAILY06 PO Last administered on 06/12/20at 06:31; Start 06/09/20 at 10:30 Lactobacillus Rhamnosus (Culturelle) 1 cap BID PO Last administered on 06/11/20at 22:46; Start 06/09/20 at 21:00 Acetaminophen/ Hydrocodone Bitart (Lortab 7.5/325) 1 tab PRN TID PRN PO MODERATE PAIN Last administered on 06/11/20at 22:57; Start 06/09/20 at 11:15 Non-Formulary Medication (Insulin Aspart (Novolog Flexpen)) 100 unit TID PRN PRN SQ hyperglycemia; Start 06/09/20 at 11:15; Stop 06/09/20 at 11:29; Status DC Insulin Glargine (Lantus Syringe) 20 unit QHS SQ Last administered on 06/10/20at 21:00; Start 06/09/20 at 21:00; Stop 06/11/20 at 13:09; Status DC Insulin Human Lispro (HumaLOG) 0-9 UNITS TIDWMEALS SQ Last administered on 06/11/20at 13:11; Start 06/09/20 at 12:00 Dextrose (Dextrose 50%-Water Syringe) 12.5 gm PRN Q15MIN PRN IV SEE COMMENTS; Start 06/09/20 at 11:30 Ampicillin Sodium/ Sulbactam Sodium 3 gm/Sodium Chloride 100 ml @ 200 mls/hr Q6HRS IV Last administered on 06/12/20at 06:31; Start 06/09/20 at 12:00 Linezolid/Dextrose 300 ml @ 300 mls/hr Q12HR IV Last administered on 06/11/20at 22:46; Start 06/09/20 at 12:00 Insulin Glargine (Lantus Syringe) 24 unit QHS SQ Last administered on 06/11/20at 22:50; Start 06/11/20 at 21:00 Active Scripts Active Novolog Flexpen (Insulin Aspart) 100 Unit/1 Ml Insuln.pen 100 Unit SQ TID PRN PRN Reported Fluoxetine Hcl 20 Mg Capsule 20 Mg PO DAILY 90 Days Lantus Solostar (Insulin Glargine,Hum.rec.anlog) 100 Unit/1 Ml Insuln.pen 20 Unit SQ QHS Senokot-S Tablet (Sennosides/Docusate Sodium) 1 Each Tablet 1 Each PO PRN DAILY PRN Benadryl (Diphenhydramine Hcl) 25 Mg Capsule 25 Mg PO PRN QHS PRN Acetaminophen 500 Mg Tablet 500 Mg PO PRN Q6HRS PRN Spironolactone 25 Mg Tablet 25 Mg PO DAILY Colace (Docusate Sodium) 100 Mg Capsule 100 Mg PO PRN DAILY PRN Coreg (Carvedilol) 25 Mg Tablet 12.5 Mg PO BIDWMEALS Nitrostat (Nitroglycerin) 0.4 Mg Tab.subl 0.4 Mg SL PRN Q5MIN PRN Hydrocodone-Apap 7.5-325 (Hydrocodone Bit/Acetaminophen) 1 Tab Tablet 1 Tab PO PRN TID PRN Synthroid (Levothyroxine Sodium) 200 Mcg Tablet 200 Mcg PO DAILY Vitals/I & O Vital Sign - Last 24 Hours 06/11/20 06/11/20 06/11/20 06/11/20 08:58 11:07 15:12 15:39 Temp 98.3 98.3 98.3 98.3 Pulse 62 63 71 Resp 18 16 18 B/P (MAP) 153/51 162/60 (94) 156/53 (87) Pulse Ox 95 95 O2 Delivery Room Air Room Air Room Air 06/11/20 06/11/20 06/11/20 06/11/20 16:18 16:41 19:00 20:00 Temp 98.1 98.1 Pulse 71 59 Resp 16 18 B/P (MAP) 156/53 147/57 (87) Pulse Ox 93 O2 Delivery Room Air Room Air Room Air 06/11/20 06/11/20 06/12/20 06/12/20 22:57 23:00 00:00 03:00 Temp 98.0 98.2 98.0 98.2 Pulse 61 54 Resp 18 18 B/P (MAP) 149/57 (87) 130/52 (78) Pulse Ox 93 94 94 96 O2 Delivery Room Air Room Air Room Air Room Air Intake and Output 06/11/20 06/11/20 06/12/20 15:00 23:00 07:00 Intake Total 650 ml 350 ml 50 ml Balance 650 ml 350 ml 50 ml Justicifation of Admission Dx: Justifications for Admission: Justification of Admission Dx: HILDA Haley MD Jun 12, 2020 08:38
[2020-06-12] MEDS: LACTOBACILLUS RHAMNOSUS GG 1 CAPSULE. PO SCH ×2 (09:16→20:08)
[2020-06-12] MEDS: FLUoxetine HCL 20 MG CAPSULE PO SCH (09:16)
[2020-06-12] MEDS: CARVEDILOL 12.5 MG TABLET. PO SCH ×2 (09:17→18:14)
[2020-06-12] MEDS: INSULIN LISPRO 300 UNITS/3 ML VIAL. SQ SCH ×3 (09:28→17:00)
[2020-06-12] MEDS: HEPARIN for SUB-Q USE 5,000 UNIT/ML VIAL. SQ SCH ×2 (09:28→20:13)
[2020-06-12] MEDS: SPIRONOLACTONE 25 MG TABLET PO SCH (10:42)
[2020-06-12 11:00] VITALS: BP 137/52
--- NOTE | 2020-06-12 11:29 | NUR ---
SW following. Discussed with RN, pt not getting up as much now, PT/OT being ordered. Apparently Dr. Yeager cannot be here until Thursday 06/14. Pt on IV abx. SW will continue to follow.
--- NOTE | 2020-06-12 12:34 | PDOC ---
Infectious Disease Note Subjective: Subjective Patient states pain and swelling over the right cheek improving slowly has loose bm wondering when dental will evaluate her Vital Signs: Vital Signs Vital Signs Date Time Temp Pulse Resp B/P (MAP) Pulse Ox O2 Delivery O2 Flow Rate FiO2 06/12/20 11:00 98.1 58 18 137/52 (80) 96 Room Air 98.1 Physical Exam: PHYSICAL EXAM GENERAL: The patient is alert oriented x3 in nad HEENT: Pupils equally round. Oropharynx pink, moist. She has upper dentures and partial on lower. Right cheek and jaw area is swollen and very tender. States is improving locally. There are no lesions seen in the mouth. NECK: Supple. LUNGS: Clear to auscultation. HEART: S1 and S2. ABDOMEN: Obese, soft, nontender. EXTREMITIES: No gross edema or cyanosis. SKIN: Warm to touch. No signs of rash. NEUROLOGIC: Alert and answering questions appropriately. Medications: Inpatient Meds: Current Medications Medications (Trade) Dose Ordered Sig/Natasha Start Time Stop Time Status Last Admin Dose Admin Acetaminophen (Tylenol) 650 mg PRN Q4HRS PRN 06/08/20 17:30 06/09/20 17:29 DC Acetaminophen/ Hydrocodone Bitart (Lortab 7.5/325) 1 tab PRN TID PRN 06/09/20 11:15 06/11/20 22:57 1 TAB Ampicillin Sodium/ Sulbactam Sodium 3 gm/Sodium Chloride 100 ml @ 200 mls/hr Q6HRS 06/09/20 12:00 06/12/20 06:31 200 MLS/HR Carvedilol (Coreg) 12.5 mg BIDWMEALS 06/09/20 09:00 06/12/20 09:17 12.5 MG Ceftriaxone Sodium (Rocephin) 1 gm Q24H 06/09/20 18:00 06/09/20 12:00 DC Clindamycin HCl (Cleocin) 600 mg 1X ONCE 06/08/20 16:15 06/08/20 16:16 DC 06/08/20 16:59 600 MG Dextrose (Dextrose 50%-Water Syringe) 12.5 gm PRN Q15MIN PRN 06/09/20 11:30 Diphenhydramine HCl (Benadryl) 25 mg PRN QHS PRN 06/09/20 08:45 06/10/20 01:59 25 MG Fluoxetine HCl (PROzac) 20 mg DAILY 06/09/20 09:00 06/12/20 09:16 20 MG Heparin Sodium (Porcine) (Heparin Sodium) 5,000 unit Q12HR 06/08/20 21:00 06/12/20 09:28 5,000 UNIT Insulin Glargine (Lantus Syringe) 24 unit QHS 06/11/20 21:00 06/11/20 22:50 24 UNIT Insulin Human Lispro (HumaLOG) 0-9 UNITS TIDWMEALS 06/09/20 12:00 06/12/20 09:28 10 UNITS Lactobacillus Rhamnosus (Culturelle) 1 cap BID 06/09/20 21:00 06/12/20 09:16 1 CAP Levothyroxine Sodium (Synthroid) 200 mcg DAILY06 06/09/20 10:30 06/12/20 06:31 200 MCG Linezolid/Dextrose 300 ml @ 300 mls/hr Q12HR 06/09/20 12:00 06/12/20 09:17 300 MLS/HR Nitroglycerin (Nitrostat) 0.4 mg PRN Q5MIN PRN 06/09/20 08:45 Non-Formulary Medication (Insulin Aspart (Novolog Flexpen)) 100 unit TID PRN PRN 06/09/20 11:15 06/09/20 11:29 DC Ondansetron HCl (Zofran) 4 mg PRN Q8HRS PRN 06/08/20 17:30 06/09/20 17:29 DC Oxycodone/ Acetaminophen (Percocet 5/325) 2 tab 1X ONCE 06/08/20 16:15 06/08/20 16:16 DC 06/08/20 16:59 2 TAB Senna/Docusate Sodium (Senna Plus) 1 tab PRN DAILY PRN 06/09/20 08:45 06/10/20 09:20 1 TAB Sodium Chloride 1,000 ml @ 125 mls/hr 1X ONCE 06/08/20 18:00 06/09/20 01:59 DC 06/08/20 22:36 125 MLS/HR Spironolactone (Aldactone) 25 mg DAILY 06/09/20 09:00 06/12/20 10:42 25 MG Labs: Lab Laboratory Tests Test 06/11/20 13:00 06/11/20 15:18 06/11/20 16:33 06/11/20 21:35 Glucose (Fingerstick) 191 mg/dL (70-99) 113 mg/dL (70-99) 196 mg/dL (70-99) Hemoglobin A1c 8.5 % (4.8-5.6) Iron Level 21 ug/dL (50-170) Total Iron Binding Capacity 291 ug/dL (250-450) Iron Saturation 7 % (15-34) Ferritin 47 ng/mL (8-252) Test 06/12/20 05:05 06/12/20 08:01 06/12/20 11:17 White Blood Count 7.7 x10^3/uL (4.0-11.0) Red Blood Count 3.99 x10^6/uL (3.50-5.40) Hemoglobin 9.7 g/dL (12.0-15.5) Hematocrit 30.4 % (36.0-47.0) Mean Corpuscular Volume 76 fL (79-100) Mean Corpuscular Hemoglobin 24 pg (25-35) Mean Corpuscular Hemoglobin Concent 32 g/dL (31-37) Red Cell Distribution Width 17.4 % (11.5-14.5) Platelet Count 274 x10^3/uL (140-400) Neutrophils (%) (Auto) 53 % (31-73) Lymphocytes (%) (Auto) 34 % (24-48) Monocytes (%) (Auto) 7 % (0-9) Eosinophils (%) (Auto) 7 % (0-3) Basophils (%) (Auto) 1 % (0-3) Neutrophils # (Auto) 4.0 x10^3/uL (1.8-7.7) Lymphocytes # (Auto) 2.6 x10^3/uL (1.0-4.8) Monocytes # (Auto) 0.5 x10^3/uL (0.0-1.1) Eosinophils # (Auto) 0.5 x10^3/uL (0.0-0.7) Basophils # (Auto) 0.1 x10^3/uL (0.0-0.2) Sodium Level 137 mmol/L (136-145) Potassium Level 3.9 mmol/L (3.5-5.1) Chloride Level 101 mmol/L (98-107) Carbon Dioxide Level 30 mmol/L (21-32) Anion Gap 6 (6-14) Blood Urea Nitrogen 15 mg/dL (7-20) Creatinine 1.3 mg/dL (0.6-1.0) Estimated GFR (Cockcroft-Gault) 39.7 BUN/Creatinine Ratio 12 (6-20) Glucose Level 189 mg/dL (70-99) Calcium Level 8.9 mg/dL (8.5-10.1) Total Bilirubin 0.2 mg/dL (0.2-1.0) Aspartate Amino Transf (AST/SGOT) 15 U/L (15-37) Alanine Aminotransferase (ALT/SGPT) 15 U/L (14-59) Alkaline Phosphatase 111 U/L (46-116) C-Reactive Protein, Quantitative 32.4 mg/L (0-3.3) Total Protein 6.4 g/dL (6.4-8.2) Albumin 2.3 g/dL (3.4-5.0) Albumin/Globulin Ratio 0.6 (1.0-1.7) Glucose (Fingerstick) 191 mg/dL (70-99) 271 mg/dL (70-99) Objective: Assessment: 1. Right Facial cellulitis. 2. Dental infection suspected. 3. Leukocytosis. 4. Renal insufficiency. 5. History of VRE. 6. Diabetes. 7. Obesity. 8. Pyuria , UC negative Plan: Plan of Care cont Unasyn and Zyvox s/p ceftriaxone before Dental eval pending f/u c diff pcr Local care Maintain aspiration precautions Supportive care SHEREE ANTUNEZ MD Jun 12, 2020 12:34
[2020-06-12 15:00] VITALS: BP 155/43
[2020-06-12 19:09] VITALS: BP 152/50
[2020-06-12] MEDS: INSULIN GLARGINE SYRINGE. SQ SCH (20:14)
[2020-06-12] MEDS: HYDROcodone/APAP 7.5/325MG 1 TAB TABLET PO PRN (21:52)
[2020-06-12 23:01] VITALS: BP 140/60
[2020-06-13 02:34] VITALS: BP 168/60
[2020-06-13] MEDS: AMPICILLIN/SULBACTAM 3 GM in IV NORMAL SALINE 100ML 100 ML IV SCH ×4 (05:20→22:47)
[2020-06-13] MEDS: LEVOTHYROXINE 100 MCG TABLET PO SCH (05:21)
[2020-06-13] MEDS: HYDROcodone/APAP 7.5/325MG 1 TAB TABLET PO PRN ×2 (05:21→22:39)
[2020-06-13 07:56] VITALS: BP 137/41
[2020-06-13] MEDS: LACTOBACILLUS RHAMNOSUS GG 1 CAPSULE. PO SCH ×2 (09:01→22:39)
[2020-06-13] MEDS: FLUoxetine HCL 20 MG CAPSULE PO SCH (09:01)
[2020-06-13] MEDS: SPIRONOLACTONE 25 MG TABLET PO SCH (09:02)
--- NOTE | 2020-06-13 09:15 | PDOC ---
PROGRESS NOTES Chief Complaint Chief Complaint A/P: Facial cellulitis - ID consulted as well as oral surgeon Sepsis - with facial cellulitis Acute reactive dental infection Elevated alkaline phosphatase Acute renal failurevasomotor nephropathy Dyslipidemia Hypertension UTI - will treat empirically, f/u culture results Urinary incontinence - will have bladder training with OT Morbid obesity BMI 50 - counseled on weight loss Bilateral knee pain left greater than right - improved after prior injections Diabetes type 2 uncontrolled - will place on basal bolus plus regimen while hospitalized. A1c 8.5 Hypertension, controlled - cont meds Hypothyroidism - TSH WNL, will cont 200mcg levothyroxine dosing FEN - ADA diet PPX - lovenox FULL CODE Dispo -inpatient likely 2 midnights History of Present Illness History of Present Illness Ms Kenney is a 74yo F w/ PMHx DM2, HLD, HTN, CAD s/p stenting who p/w right sided facial pain, found with cellulitis as well as UTI. 06/10: Still having right-sided facial swelling and pain. No pain on putting her upper dentures in. No shortness of breath or chest pain. Still has dysuria and episodic incontinence. 06/11: Urine culture negative. Right face swelling improved. Oral surgery consult pending. 06/12: Afebrile. Facial swelling is improved. She is very weak was barely able to get up on her own. No shortness of breath or chest pain Afebrile. C diff negative. Swelling and pain a bit improved. Dysuria improving. Vitals Vitals Vital Signs Date Time Temp Pulse Resp B/P (MAP) Pulse Ox O2 Delivery O2 Flow Rate FiO2 06/13/20 07:56 97.7 53 16 137/41 (73) 95 Room Air 97.7 Physical Exam Physical Exam GENERAL: The patient is alert oriented x3 in nad HEENT: Pupils equally round. Oropharynx pink, moist. She has upper dentures and partial on lower. Right cheek and jaw area is swollen and very tender. States is improving locally. There are no lesions seen in the mouth. NECK: Supple. LUNGS: Clear to auscultation. HEART: S1 and S2. ABDOMEN: Obese, soft, nontender. EXTREMITIES: No gross edema or cyanosis. SKIN: Warm to touch. No signs of rash. NEUROLOGIC: Alert and answering questions appropriately. General: Alert, Oriented X3, Cooperative, mild distress Heart: Regular rate, Normal S1, Normal S2 Lungs: Clear Abdomen: Normal bowel sounds, Soft Extremities: No cyanosis Labs LABS Laboratory Tests Test 06/12/20 11:17 06/12/20 16:45 06/12/20 20:13 06/13/20 07:43 Glucose (Fingerstick) 271 mg/dL (70-99) 103 mg/dL (70-99) 136 mg/dL (70-99) 168 mg/dL (70-99) Assessment and Plan Assessmemt and Plan Problems Medical Problems: (1) Dental infection Status: Acute (2) Generalized weakness Status: Acute (3) Urinary tract infection Status: Acute Comment Review of Relevant I have reviewed the following items jina (where applicable) has been applied. Labs Laboratory Tests Test 06/11/20 13:00 06/11/20 15:18 06/11/20 16:33 06/11/20 21:35 Glucose (Fingerstick) 191 mg/dL (70-99) 113 mg/dL (70-99) 196 mg/dL (70-99) Hemoglobin A1c 8.5 % (4.8-5.6) Iron Level 21 ug/dL (50-170) Total Iron Binding Capacity 291 ug/dL (250-450) Iron Saturation 7 % (15-34) Ferritin 47 ng/mL (8-252) Test 06/12/20 05:05 06/12/20 08:01 06/12/20 11:17 06/12/20 16:45 White Blood Count 7.7 x10^3/uL (4.0-11.0) Red Blood Count 3.99 x10^6/uL (3.50-5.40) Hemoglobin 9.7 g/dL (12.0-15.5) Hematocrit 30.4 % (36.0-47.0) Mean Corpuscular Volume 76 fL (79-100) Mean Corpuscular Hemoglobin 24 pg (25-35) Mean Corpuscular Hemoglobin Concent 32 g/dL (31-37) Red Cell Distribution Width 17.4 % (11.5-14.5) Platelet Count 274 x10^3/uL (140-400) Neutrophils (%) (Auto) 53 % (31-73) Lymphocytes (%) (Auto) 34 % (24-48) Monocytes (%) (Auto) 7 % (0-9) Eosinophils (%) (Auto) 7 % (0-3) Basophils (%) (Auto) 1 % (0-3) Neutrophils # (Auto) 4.0 x10^3/uL (1.8-7.7) Lymphocytes # (Auto) 2.6 x10^3/uL (1.0-4.8) Monocytes # (Auto) 0.5 x10^3/uL (0.0-1.1) Eosinophils # (Auto) 0.5 x10^3/uL (0.0-0.7) Basophils # (Auto) 0.1 x10^3/uL (0.0-0.2) Sodium Level 137 mmol/L (136-145) Potassium Level 3.9 mmol/L (3.5-5.1) Chloride Level 101 mmol/L (98-107) Carbon Dioxide Level 30 mmol/L (21-32) Anion Gap 6 (6-14) Blood Urea Nitrogen 15 mg/dL (7-20) Creatinine 1.3 mg/dL (0.6-1.0) Estimated GFR (Cockcroft-Gault) 39.7 BUN/Creatinine Ratio 12 (6-20) Glucose Level 189 mg/dL (70-99) Calcium Level 8.9 mg/dL (8.5-10.1) Total Bilirubin 0.2 mg/dL (0.2-1.0) Aspartate Amino Transf (AST/SGOT) 15 U/L (15-37) Alanine Aminotransferase (ALT/SGPT) 15 U/L (14-59) Alkaline Phosphatase 111 U/L (46-116) C-Reactive Protein, Quantitative 32.4 mg/L (0-3.3) Total Protein 6.4 g/dL (6.4-8.2) Albumin 2.3 g/dL (3.4-5.0) Albumin/Globulin Ratio 0.6 (1.0-1.7) Glucose (Fingerstick) 191 mg/dL (70-99) 271 mg/dL (70-99) 103 mg/dL (70-99) Test 06/12/20 20:13 06/13/20 07:43 Glucose (Fingerstick) 136 mg/dL (70-99) 168 mg/dL (70-99) Laboratory Tests Test 06/12/20 11:17 06/12/20 16:45 06/12/20 20:13 06/13/20 07:43 Glucose (Fingerstick) 271 mg/dL (70-99) 103 mg/dL (70-99) 136 mg/dL (70-99) 168 mg/dL (70-99) Microbiology 06/08/20 Urine Culture - Final, Complete Medications Current Medications Clindamycin HCl (Cleocin) 600 mg 1X ONCE PO Last administered on 06/08/20at 16:59; Start 06/08/20 at 16:15; Stop 06/08/20 at 16:16; Status DC Oxycodone/ Acetaminophen (Percocet 5/325) 2 tab 1X ONCE PO Last administered on 06/08/20at 16:59; Start 06/08/20 at 16:15; Stop 06/08/20 at 16:16; Status DC Sodium Chloride 1,000 ml @ 1,000 mls/hr 1X ONCE IV Last administered on 06/08/20at 16:44; Start 06/08/20 at 16:30; Stop 06/08/20 at 17:29; Status DC Ceftriaxone Sodium (Rocephin) 1 gm 1X ONCE IVP Last administered on 06/08/20at 17:49; Start 06/08/20 at 17:30; Stop 06/08/20 at 17:32; Status DC Ondansetron HCl (Zofran) 4 mg PRN Q8HRS PRN IV NAUSEA/VOMITING; Start 06/08/20 at 17:30; Stop 06/09/20 at 17:29; Status DC Sodium Chloride 1,000 ml @ 125 mls/hr Q8H IV Last administered on 06/09/20at 10:33; Start 06/08/20 at 17:27; Stop 06/09/20 at 17:26; Status DC Acetaminophen (Tylenol) 650 mg PRN Q4HRS PRN PO FEVER > 100.3'F; Start 06/08/20 at 17:30; Stop 06/09/20 at 17:29; Status DC Sodium Chloride 1,000 ml @ 125 mls/hr 1X ONCE IV Last administered on 06/08/20at 22:36; Start 06/08/20 at 18:00; Stop 06/09/20 at 01:59; Status DC Heparin Sodium (Porcine) (Heparin Sodium) 5,000 unit Q12HR SQ Last administered on 06/12/20at 20:13; Start 06/08/20 at 21:00 Ceftriaxone Sodium (Rocephin) 1 gm Q24H IVP ; Start 06/09/20 at 18:00; Stop 06/09/20 at 12:00; Status DC Diphenhydramine HCl (Benadryl) 25 mg PRN QHS PRN PO INSOMNIA Last administered on 06/10/20at 01:59; Start 06/09/20 at 08:45 Fluoxetine HCl (PROzac) 20 mg DAILY PO Last administered on 06/12/20 09:16; Start 06/09/20 at 09:00 Nitroglycerin (Nitrostat) 0.4 mg PRN Q5MIN PRN SL CHEST PAIN; Start 06/09/20 at 08:45 Senna/Docusate Sodium (Senna Plus) 1 tab PRN DAILY PRN PO CONSTIPATION Last administered on 06/10/20 09:20; Start 06/09/20 at 08:45 Spironolactone (Aldactone) 25 mg DAILY PO Last administered on 06/12/20at 10:42; Start 06/09/20 at 09:00 Carvedilol (Coreg) 12.5 mg BIDWMEALS PO Last administered on 06/12/20 18:14; Start 06/09/20 at 09:00 Levothyroxine Sodium (Synthroid) 200 mcg DAILY06 PO Last administered on 05:21; Start 06/09/20 at 10:30 Lactobacillus Rhamnosus (Culturelle) 1 cap BID PO Last administered on 06/12/20at 20:08; Start 06/09/20 at 21:00 Acetaminophen/ Hydrocodone Bitart (Lortab 7.5/325) 1 tab PRN TID PRN PO MODERATE PAIN Last administered on 06/13/20 05:21; Start 06/09/20 at 11:15 Non-Formulary Medication (Insulin Aspart (Novolog Flexpen)) 100 unit TID PRN PRN SQ hyperglycemia; Start 06/09/20 at 11:15; Stop 06/09/20 at 11:29; Status DC Insulin Glargine (Lantus Syringe) 20 unit QHS SQ Last administered on 06/10/20at 21:00; Start 06/09/20 at 21:00; Stop 06/11/20 at 13:09; Status DC Insulin Human Lispro (HumaLOG) 0-9 UNITS TIDWMEALS SQ Last administered on 06/12/20at 13:41; Start 06/09/20 at 12:00 Dextrose (Dextrose 50%-Water Syringe) 12.5 gm PRN Q15MIN PRN IV SEE COMMENTS; Start 06/09/20 at 11:30 Ampicillin Sodium/ Sulbactam Sodium 3 gm/Sodium Chloride 100 ml @ 200 mls/hr Q6HRS IV Last administered on 06/13/20at 05:20; Start 06/09/20 at 12:00 Linezolid/Dextrose 300 ml @ 300 mls/hr Q12HR IV Last administered on 06/12/20at 20:07; Start 06/09/20 at 12:00 Insulin Glargine (Lantus Syringe) 24 unit QHS SQ Last administered on 06/12/20at 20:14; Start 06/11/20 at 21:00 Active Scripts Active Novolog Flexpen (Insulin Aspart) 100 Unit/1 Ml Insuln.pen 100 Unit SQ TID PRN PRN Reported Fluoxetine Hcl 20 Mg Capsule 20 Mg PO DAILY 90 Days Lantus Solostar (Insulin Glargine,Hum.rec.anlog) 100 Unit/1 Ml Insuln.pen 20 Unit SQ QHS Senokot-S Tablet (Sennosides/Docusate Sodium) 1 Each Tablet 1 Each PO PRN DAILY PRN Benadryl (Diphenhydramine Hcl) 25 Mg Capsule 25 Mg PO PRN QHS PRN Acetaminophen 500 Mg Tablet 500 Mg PO PRN Q6HRS PRN Spironolactone 25 Mg Tablet 25 Mg PO DAILY Colace (Docusate Sodium) 100 Mg Capsule 100 Mg PO PRN DAILY PRN Coreg (Carvedilol) 25 Mg Tablet 12.5 Mg PO BIDWMEALS Nitrostat (Nitroglycerin) 0.4 Mg Tab.subl 0.4 Mg SL PRN Q5MIN PRN Hydrocodone-Apap 7.5-325 (Hydrocodone Bit/Acetaminophen) 1 Tab Tablet 1 Tab PO PRN TID PRN Synthroid (Levothyroxine Sodium) 200 Mcg Tablet 200 Mcg PO DAILY Vitals/I & O Vital Sign - Last 24 Hours 06/12/20 06/12/20 06/12/20 06/12/20 09:17 11:00 15:00 18:14 Temp 98.1 98.3 98.1 98.3 Pulse 55 58 59 59 Resp 18 18 B/P (MAP) 163/55 137/52 (80) 155/43 (80) 155/43 Pulse Ox 96 96 O2 Delivery Room Air Room Air 06/12/20 06/12/20 06/12/20 06/12/20 19:09 20:00 21:52 22:58 Temp 98.2 98.2 Pulse 60 Resp 20 18 18 B/P (MAP) 152/50 (84) Pulse Ox 96 96 96 O2 Delivery Room Air Room Air Room Air Room Air 06/12/20 06/13/20 06/13/20 06/13/20 23:01 02:34 05:21 06:21 Temp 98.3 97.7 98.3 97.7 Pulse 59 58 Resp 17 16 18 18 B/P (MAP) 140/60 (86) 168/60 (96) Pulse Ox 92 95 95 95 O2 Delivery Room Air Room Air Room Air Room Air 06/13/20 07:56 Temp 97.7 97.7 Pulse 53 Resp 16 B/P (MAP) 137/41 (73) Pulse Ox 95 O2 Delivery Room Air Intake and Output 06/12/20 06/12/20 06/13/20 15:00 23:00 07:00 Intake Total 450 ml 650 ml Balance 450 ml 650 ml Justicifation of Admission Dx: Justifications for Admission: Justification of Admission Dx: No HILDA HERNANDEZ MD Jun 13, 2020 09:14
[2020-06-13] MEDS: INSULIN LISPRO 300 UNITS/3 ML VIAL. SQ SCH ×3 (09:20→18:01)
[2020-06-13] MEDS: HEPARIN for SUB-Q USE 5,000 UNIT/ML VIAL. SQ SCH ×2 (09:20→22:47)
--- NOTE | 2020-06-13 09:35 | NUR ---
SW following. Discussed with RN, Dr. Yeager apparently coming to see pt tomorrow (06/14/2020). PT/OT ordered yesterday. SANGITA will continue to follow.
[2020-06-13 11:17] VITALS: BP 133/57
--- NOTE | 2020-06-13 12:16 | PDOC ---
Infectious Disease Note Subjective: Subjective Patient states pain and swelling over the right cheek improving has loose bm Denies fever, nausea, vomiting, shortness of breath,abdominal pain, rash Otherwise as above Vital Signs: Vital Signs Vital Signs Date Time Temp Pulse Resp B/P (MAP) Pulse Ox O2 Delivery O2 Flow Rate FiO2 06/13/20 11:17 97.9 62 16 133/57 (82) 95 Room Air 97.9 Physical Exam: PHYSICAL EXAM GENERAL: The patient is alert oriented x3 in nad HEENT: Pupils equally round. Oropharynx pink, moist. She has upper dentures and partial on lower. Right cheek and jaw area is swollen and very tender. States is improving locally. There are no lesions seen in the mouth. NECK: Supple. LUNGS: Clear to auscultation. HEART: S1 and S2. ABDOMEN: Obese, soft, nontender. EXTREMITIES: No gross edema or cyanosis. SKIN: Warm to touch. No signs of rash. NEUROLOGIC: Alert and answering questions appropriately. Medications: Inpatient Meds: Current Medications Medications (Trade) Dose Ordered Sig/Natasha Start Time Stop Time Status Last Admin Dose Admin Acetaminophen (Tylenol) 650 mg PRN Q4HRS PRN 06/08/20 17:30 06/09/20 17:29 DC Acetaminophen/ Hydrocodone Bitart (Lortab 7.5/325) 1 tab PRN TID PRN 06/09/20 11:15 06/13/20 05:21 Ampicillin Sodium/ Sulbactam Sodium 3 gm/Sodium Chloride 100 ml @ 200 mls/hr Q6HRS 06/09/20 12:00 06/13/20 05:20 Carvedilol (Coreg) 12.5 mg BIDWMEALS 06/09/20 09:00 06/12/20 18:14 Ceftriaxone Sodium (Rocephin) 1 gm Q24H 06/09/20 18:00 06/09/20 12:00 DC Clindamycin HCl (Cleocin) 600 mg 1X ONCE 06/08/20 16:15 06/08/20 16:16 DC 06/08/20 16:59 Dextrose (Dextrose 50%-Water Syringe) 12.5 gm PRN Q15MIN PRN 06/09/20 11:30 Diphenhydramine HCl (Benadryl) 25 mg PRN QHS PRN 06/09/20 08:45 06/10/20 01:59 Fluoxetine HCl (PROzac) 20 mg DAILY 06/09/20 09:00 06/13/20 09:01 Heparin Sodium (Porcine) (Heparin Sodium) 5,000 unit Q12HR 06/08/20 21:00 06/13/20 09:20 Insulin Glargine (Lantus Syringe) 24 unit QHS 06/11/20 21:00 06/12/20 20:14 Insulin Human Lispro (HumaLOG) 0-9 UNITS TIDWMEALS 06/09/20 12:00 06/13/20 09:20 Lactobacillus Rhamnosus (Culturelle) 1 cap BID 06/09/20 21:00 06/13/20 09:01 Levothyroxine Sodium (Synthroid) 200 mcg DAILY06 06/09/20 10:30 06/13/20 05:21 Linezolid/Dextrose 300 ml @ 300 mls/hr Q12HR 06/09/20 12:00 06/13/20 09:02 Nitroglycerin (Nitrostat) 0.4 mg PRN Q5MIN PRN 06/09/20 08:45 Non-Formulary Medication (Insulin Aspart (Novolog Flexpen)) 100 unit TID PRN PRN 06/09/20 11:15 06/09/20 11:29 DC Ondansetron HCl (Zofran) 4 mg PRN Q8HRS PRN 06/08/20 17:30 06/09/20 17:29 DC Oxycodone/ Acetaminophen (Percocet 5/325) 2 tab 1X ONCE 06/08/20 16:15 06/08/20 16:16 DC 06/08/20 16:59 Senna/Docusate Sodium (Senna Plus) 1 tab PRN DAILY PRN 06/09/20 08:45 06/10/20 09:20 Sodium Chloride 1,000 ml @ 125 mls/hr 1X ONCE 06/08/20 18:00 06/09/20 01:59 DC 06/08/20 22:36 Spironolactone (Aldactone) 25 mg DAILY 06/09/20 09:00 06/13/20 09:02 Labs: Lab Laboratory Tests Test 06/12/20 16:45 06/12/20 20:13 06/13/20 07:43 06/13/20 10:55 Glucose (Fingerstick) 103 mg/dL (70-99) 136 mg/dL (70-99) 168 mg/dL (70-99) 225 mg/dL (70-99) Objective: Assessment: 1. Right Facial cellulitis. Improving 2. Dental infection suspected. 3. Leukocytosis. 4. Renal insufficiency. 5. History of VRE. 6. Diabetes. 7. Obesity. 8. Pyuria , UC negative 9. Diarrhea C. difficile negative Plan: Plan of Care cont Unasyn and Zyvox s/p ceftriaxone before Dental eval pending C. difficile negative Local care Maintain aspiration precautions Supportive care SHEREE ANTUNEZ MD Jun 13, 2020 12:15
[2020-06-13] MEDS: CARVEDILOL 12.5 MG TABLET. PO SCH ×2 (12:34→18:02)
[2020-06-13 15:26] VITALS: BP 164/53
[2020-06-13 19:00] VITALS: BP 157/69
[2020-06-13] MEDS: INSULIN GLARGINE SYRINGE. SQ SCH (22:46)
[2020-06-13 23:07] VITALS: BP 163/51
[2020-06-14 02:45] VITALS: BP 136/59
[2020-06-14] MEDS: AMPICILLIN/SULBACTAM 3 GM in IV NORMAL SALINE 100ML 100 ML IV SCH ×3 (04:45→18:06)
[2020-06-14] MEDS: HYDROcodone/APAP 7.5/325MG 1 TAB TABLET PO PRN ×2 (04:47→20:38)
[2020-06-14] MEDS: LEVOTHYROXINE 100 MCG TABLET PO SCH (04:47)
[2020-06-14 07:43] VITALS: BP 139/61
[2020-06-14] MEDS: SPIRONOLACTONE 25 MG TABLET PO SCH (08:19)
[2020-06-14] MEDS: CARVEDILOL 12.5 MG TABLET. PO SCH ×2 (08:19→18:07)
[2020-06-14] MEDS: LACTOBACILLUS RHAMNOSUS GG 1 CAPSULE. PO SCH ×2 (08:19→20:30)
[2020-06-14] MEDS: FLUoxetine HCL 20 MG CAPSULE PO SCH (08:19)
[2020-06-14] MEDS: INSULIN LISPRO 300 UNITS/3 ML VIAL. SQ SCH ×3 (08:29→18:20)
[2020-06-14] MEDS: HEPARIN for SUB-Q USE 5,000 UNIT/ML VIAL. SQ SCH ×2 (08:30→20:39)
--- NOTE | 2020-06-14 08:49 | PDOC ---
PROGRESS NOTES Chief Complaint Chief Complaint A/P: Facial cellulitis - ID consulted as well as oral surgeon Sepsis - with facial cellulitis Acute reactive dental infection Elevated alkaline phosphatase Acute renal failurevasomotor nephropathy Dyslipidemia Hypertension UTI - will treat empirically, f/u culture results Urinary incontinence - will have bladder training with OT Morbid obesity BMI 50 - counseled on weight loss Bilateral knee pain left greater than right - improved after prior injections Diabetes type 2 uncontrolled - will place on basal bolus plus regimen while hospitalized. A1c 8.5 Hypertension, controlled - cont meds Hypothyroidism - TSH WNL, will cont 200mcg levothyroxine dosing FEN - ADA diet PPX - lovenox FULL CODE Dispo -inpatient likely 2 midnights History of Present Illness History of Present Illness Ms Kenney is a 74yo F w/ PMHx DM2, HLD, HTN, CAD s/p stenting who p/w right sided facial pain, found with cellulitis as well as UTI. 06/10: Still having right-sided facial swelling and pain. No pain on putting her upper dentures in. No shortness of breath or chest pain. Still has dysuria and episodic incontinence. 06/11: Urine culture negative. Right face swelling improved. Oral surgery consult pending. 06/12: Afebrile. Facial swelling is improved. She is very weak was barely able to get up on her own. No shortness of breath or chest pain 06/13: Afebrile. C diff negative. Swelling and pain a bit improved. Dysuria i mproving. States her facial swelling is improving and her pain is improving. Diarrhea is also improved. No shortness of breath or chest pain, afebrile I have been unable to contact oral maxillofacial surgery. Continue IV antibiotic's for now Vitals Vitals Vital Signs Date Time Temp Pulse Resp B/P (MAP) Pulse Ox O2 Delivery O2 Flow Rate FiO2 06/14/20 08:19 64 139/61 06/14/20 07:43 97.7 20 97 Room Air 97.7 Physical Exam Physical Exam GENERAL: The patient is alert oriented x3 in nad HEENT: Pupils equally round. Oropharynx pink, moist. She has upper dentures and partial on lower. Right cheek and jaw area is swollen and very tender. States is improving locally. There are no lesions seen in the mouth. NECK: Supple. LUNGS: Clear to auscultation. HEART: S1 and S2. ABDOMEN: Obese, soft, nontender. EXTREMITIES: No gross edema or cyanosis. SKIN: Warm to touch. No signs of rash. NEUROLOGIC: Alert and answering questions appropriately. General: Alert, Oriented X3, Cooperative, mild distress Heart: Regular rate, Normal S1, Normal S2 Lungs: Clear Abdomen: Normal bowel sounds, Soft Extremities: No cyanosis Labs LABS Laboratory Tests Test 06/13/20 10:55 06/13/20 16:33 06/13/20 20:06 06/14/20 08:05 Glucose (Fingerstick) 225 mg/dL (70-99) 82 mg/dL (70-99) 173 mg/dL (70-99) 162 mg/dL (70-99) Assessment and Plan Assessmemt and Plan Problems Medical Problems: (1) Dental infection Status: Acute (2) Generalized weakness Status: Acute (3) Urinary tract infection Status: Acute Comment Review of Relevant I have reviewed the following items jina (where applicable) has been applied. Labs Laboratory Tests Test 06/12/20 10:00 06/12/20 11:17 06/12/20 16:45 06/12/20 20:13 Clostridium difficile Toxin (PCR) Negative (NEGATIVE) Glucose (Fingerstick) 271 mg/dL (70-99) 103 mg/dL (70-99) 136 mg/dL (70-99) Test 06/13/20 07:43 06/13/20 10:55 06/13/20 16:33 06/13/20 20:06 Glucose (Fingerstick) 168 mg/dL (70-99) 225 mg/dL (70-99) 82 mg/dL (70-99) 173 mg/dL (70-99) Test 06/14/20 08:05 Glucose (Fingerstick) 162 mg/dL (70-99) Laboratory Tests Test 06/13/20 10:55 06/13/20 16:33 06/13/20 20:06 06/14/20 08:05 Glucose (Fingerstick) 225 mg/dL (70-99) 82 mg/dL (70-99) 173 mg/dL (70-99) 162 mg/dL (70-99) Microbiology 06/08/20 Urine Culture - Final, Complete Medications Current Medications Clindamycin HCl (Cleocin) 600 mg 1X ONCE PO Last administered on 06/08/20at 16:59; Start 06/08/20 at 16:15; Stop 06/08/20 at 16:16; Status DC Oxycodone/ Acetaminophen (Percocet 5/325) 2 tab 1X ONCE PO Last administered on 06/08/20at 16:59; Start 06/08/20 at 16:15; Stop 06/08/20 at 16:16; Status DC Sodium Chloride 1,000 ml @ 1,000 mls/hr 1X ONCE IV Last administered on 06/08/20at 16:44; Start 06/08/20 at 16:30; Stop 06/08/20 at 17:29; Status DC Ceftriaxone Sodium (Rocephin) 1 gm 1X ONCE IVP Last administered on 06/08/20at 17:49; Start 06/08/20 at 17:30; Stop 06/08/20 at 17:32; Status DC Ondansetron HCl (Zofran) 4 mg PRN Q8HRS PRN IV NAUSEA/VOMITING; Start 06/08/20 at 17:30; Stop 06/09/20 at 17:29; Status DC Sodium Chloride 1,000 ml @ 125 mls/hr Q8H IV Last administered on 06/09/20at 10:33; Start 06/08/20 at 17:27; Stop 06/09/20 at 17:26; Status DC Acetaminophen (Tylenol) 650 mg PRN Q4HRS PRN PO FEVER > 100.3'F; Start 06/08/20 at 17:30; Stop 06/09/20 at 17:29; Status DC Sodium Chloride 1,000 ml @ 125 mls/hr 1X ONCE IV Last administered on 06/08/20at 22:36; Start 06/08/20 at 18:00; Stop 06/09/20 at 01:59; Status DC Heparin Sodium (Porcine) (Heparin Sodium) 5,000 unit Q12HR SQ Last administered on 06/14/20at 08:30; Start 06/08/20 at 21:00 Ceftriaxone Sodium (Rocephin) 1 gm Q24H IVP ; Start 06/09/20 at 18:00; Stop 06/09/20 at 12:00; Status DC Diphenhydramine HCl (Benadryl) 25 mg PRN QHS PRN PO INSOMNIA Last administered on 06/10/20 01:59; Start 06/09/20 at 08:45 Fluoxetine HCl (PROzac) 20 mg DAILY PO Last administered on 06/14/20 08:19; Start 06/09/20 at 09:00 Nitroglycerin (Nitrostat) 0.4 mg PRN Q5MIN PRN SL CHEST PAIN; Start 06/09/20 at 08:45 Senna/Docusate Sodium (Senna Plus) 1 tab PRN DAILY PRN PO CONSTIPATION Last administered on 06/10/20 09:20; Start 06/09/20 at 08:45 Spironolactone (Aldactone) 25 mg DAILY PO Last administered on 06/14/20 08:19; Start 06/09/20 at 09:00 Carvedilol (Coreg) 12.5 mg BIDWMEALS PO Last administered on 06/14/20 08:19; Start 06/09/20 at 09:00 Levothyroxine Sodium (Synthroid) 200 mcg DAILY06 PO Last administered on 06/14/20 04:47; Start 06/09/20 at 10:30 Lactobacillus Rhamnosus (Culturelle) 1 cap BID PO Last administered on 06/14/20 08:19; Start 06/09/20 at 21:00 Acetaminophen/ Hydrocodone Bitart (Lortab 7.5/325) 1 tab PRN TID PRN PO MODERATE PAIN Last administered on 06/14/20 04:47; Start 06/09/20 at 11:15 Non-Formulary Medication (Insulin Aspart (Novolog Flexpen)) 100 unit TID PRN PRN SQ hyperglycemia; Start 06/09/20 at 11:15; Stop 06/09/20 at 11:29; Status DC Insulin Glargine (Lantus Syringe) 20 unit QHS SQ Last administered on 06/10/20at 21:00; Start 06/09/20 at 21:00; Stop 06/11/20 at 13:09; Status DC Insulin Human Lispro (HumaLOG) 0-9 UNITS TIDWMEALS SQ Last administered on 06/14/20 08:29; Start 06/09/20 at 12:00 Dextrose (Dextrose 50%-Water Syringe) 12.5 gm PRN Q15MIN PRN IV SEE COMMENTS; Start 06/09/20 at 11:30 Ampicillin Sodium/ Sulbactam Sodium 3 gm/Sodium Chloride 100 ml @ 200 mls/hr Q6HRS IV Last administered on 06/14/20at 04:45; Start 06/09/20 at 12:00 Linezolid/Dextrose 300 ml @ 300 mls/hr Q12HR IV Last administered on 06/14/20at 08:20; Start 06/09/20 at 12:00 Insulin Glargine (Lantus Syringe) 24 unit QHS SQ Last administered on 06/13/20at 22:46; Start 06/11/20 at 21:00 Active Scripts Active Novolog Flexpen (Insulin Aspart) 100 Unit/1 Ml Insuln.pen 100 Unit SQ TID PRN PRN Reported Fluoxetine Hcl 20 Mg Capsule 20 Mg PO DAILY 90 Days Lantus Solostar (Insulin Glargine,Hum.rec.anlog) 100 Unit/1 Ml Insuln.pen 20 Unit SQ QHS Senokot-S Tablet (Sennosides/Docusate Sodium) 1 Each Tablet 1 Each PO PRN DAILY PRN Benadryl (Diphenhydramine Hcl) 25 Mg Capsule 25 Mg PO PRN QHS PRN Acetaminophen 500 Mg Tablet 500 Mg PO PRN Q6HRS PRN Spironolactone 25 Mg Tablet 25 Mg PO DAILY Colace (Docusate Sodium) 100 Mg Capsule 100 Mg PO PRN DAILY PRN Coreg (Carvedilol) 25 Mg Tablet 12.5 Mg PO BIDWMEALS Nitrostat (Nitroglycerin) 0.4 Mg Tab.subl 0.4 Mg SL PRN Q5MIN PRN Hydrocodone-Apap 7.5-325 (Hydrocodone Bit/Acetaminophen) 1 Tab Tablet 1 Tab PO PRN TID PRN Synthroid (Levothyroxine Sodium) 200 Mcg Tablet 200 Mcg PO DAILY Vitals/I & O Vital Sign - Last 24 Hours 06/13/20 06/13/20 06/13/20 06/13/20 11:17 12:34 15:26 18:02 Temp 97.9 98.1 97.9 98.1 Pulse 62 62 59 65 Resp 16 16 B/P (MAP) 133/57 (82) 133/57 164/53 (90) 148/51 Pulse Ox 95 95 O2 Delivery Room Air Room Air 06/13/20 06/13/20 06/13/20 06/13/20 19:00 20:00 22:39 23:07 Temp 98.8 98.5 98.8 98.5 Pulse 62 65 Resp 22 18 20 B/P (MAP) 157/69 (98) 163/51 (88) Pulse Ox 97 97 94 O2 Delivery Room Air Room Air Room Air Room Air 06/13/20 06/14/20 06/14/20 06/14/20 23:39 02:45 04:47 05:47 Temp 98.3 98.3 Pulse 62 Resp 18 20 18 18 B/P (MAP) 136/59 (84) Pulse Ox 94 96 96 96 O2 Delivery Room Air Room Air Room Air Room Air 06/14/20 06/14/20 07:43 08:19 Temp 97.7 97.7 Pulse 64 64 Resp 20 B/P (MAP) 139/61 (87) 139/61 Pulse Ox 97 O2 Delivery Room Air Intake and Output 06/13/20 06/13/20 06/14/20 15:00 23:00 07:00 Intake Total 550 ml 300 ml Output Total 0 ml 0 ml Balance 550 ml 300 ml 0 ml Justicifation of Admission Dx: Justifications for Admission: Justification of Admission Dx: HILDA Haley MD Jun 14, 2020 08:49
--- NOTE | 2020-06-14 10:36 | PDOC ---
Infectious Disease Note Subjective: Subjective Patient states pain and swelling over the right cheek improving Diarrhea improving Denies fever, nausea, vomiting, shortness of breath,abdominal pain, rash Otherwise as above Vital Signs: Vital Signs Vital Signs Date Time Temp Pulse Resp B/P (MAP) Pulse Ox O2 Delivery O2 Flow Rate FiO2 06/14/20 08:19 64 139/61 06/14/20 07:43 97.7 20 97 Room Air 97.7 Physical Exam: PHYSICAL EXAM GENERAL: The patient is alert oriented x3 in nad HEENT: Pupils equally round. Oropharynx pink, moist. She has upper dentures and partial on lower. Right cheek and jaw area is swollen and very tender. States is improving locally. There are no lesions seen in the mouth. NECK: Supple. LUNGS: Clear to auscultation. HEART: S1 and S2. ABDOMEN: Obese, soft, nontender. EXTREMITIES: No gross edema or cyanosis. SKIN: Warm to touch. No signs of rash. NEUROLOGIC: Alert and answering questions appropriately. Medications: Inpatient Meds: Current Medications Medications (Trade) Dose Ordered Sig/Natasha Start Time Stop Time Status Last Admin Dose Admin Acetaminophen (Tylenol) 650 mg PRN Q4HRS PRN 06/08/20 17:30 06/09/20 17:29 DC Acetaminophen/ Hydrocodone Bitart (Lortab 7.5/325) 1 tab PRN TID PRN 06/09/20 11:15 06/14/20 04:47 1 TAB Ampicillin Sodium/ Sulbactam Sodium 3 gm/Sodium Chloride 100 ml @ 200 mls/hr Q6HRS 06/09/20 12:00 06/14/20 04:45 200 MLS/HR Carvedilol (Coreg) 12.5 mg BIDWMEALS 06/09/20 09:00 06/14/20 08:19 12.5 MG Ceftriaxone Sodium (Rocephin) 1 gm Q24H 06/09/20 18:00 06/09/20 12:00 DC Clindamycin HCl (Cleocin) 600 mg 1X ONCE 06/08/20 16:15 06/08/20 16:16 DC 06/08/20 16:59 600 MG Dextrose (Dextrose 50%-Water Syringe) 12.5 gm PRN Q15MIN PRN 06/09/20 11:30 Diphenhydramine HCl (Benadryl) 25 mg PRN QHS PRN 06/09/20 08:45 06/10/20 01:59 25 MG Fluoxetine HCl (PROzac) 20 mg DAILY 06/09/20 09:00 06/14/20 08:19 20 MG Heparin Sodium (Porcine) (Heparin Sodium) 5,000 unit Q12HR 06/08/20 21:00 06/14/20 08:30 5,000 UNIT Insulin Glargine (Lantus Syringe) 24 unit QHS 06/11/20 21:00 06/13/20 22:46 24 UNIT Insulin Human Lispro (HumaLOG) 0-9 UNITS TIDWMEALS 06/09/20 12:00 06/14/20 08:29 10 UNITS Lactobacillus Rhamnosus (Culturelle) 1 cap BID 06/09/20 21:00 06/14/20 08:19 1 CAP Levothyroxine Sodium (Synthroid) 200 mcg DAILY06 06/09/20 10:30 06/14/20 04:47 200 MCG Linezolid/Dextrose 300 ml @ 300 mls/hr Q12HR 06/09/20 12:00 06/14/20 08:20 300 MLS/HR Nitroglycerin (Nitrostat) 0.4 mg PRN Q5MIN PRN 06/09/20 08:45 Non-Formulary Medication (Insulin Aspart (Novolog Flexpen)) 100 unit TID PRN PRN 06/09/20 11:15 06/09/20 11:29 DC Ondansetron HCl (Zofran) 4 mg PRN Q8HRS PRN 06/08/20 17:30 06/09/20 17:29 DC Oxycodone/ Acetaminophen (Percocet 5/325) 2 tab 1X ONCE 06/08/20 16:15 06/08/20 16:16 DC 06/08/20 16:59 2 TAB Senna/Docusate Sodium (Senna Plus) 1 tab PRN DAILY PRN 06/09/20 08:45 06/10/20 09:20 1 TAB Sodium Chloride 1,000 ml @ 125 mls/hr 1X ONCE 06/08/20 18:00 06/09/20 01:59 DC 06/08/20 22:36 125 MLS/HR Spironolactone (Aldactone) 25 mg DAILY 06/09/20 09:00 06/14/20 08:19 25 MG Labs: Lab Laboratory Tests Test 06/13/20 10:55 06/13/20 16:33 06/13/20 20:06 06/14/20 08:05 Glucose (Fingerstick) 225 mg/dL (70-99) 82 mg/dL (70-99) 173 mg/dL (70-99) 162 mg/dL (70-99) Objective: Assessment: 1. Right Facial cellulitis. Improving 2. Dental infection suspected. 3. Leukocytosis. 4. Renal insufficiency. 5. History of VRE. 6. Diabetes. 7. Obesity. 8. Pyuria , UC negative 9. Diarrhea C. difficile negative Plan: Plan of Care cont Unasyn and Zyvox s/p ceftriaxone before Dental eval pending C. difficile negative Local care Maintain aspiration precautions Supportive care SHEREE ANTUNEZ MD Jun 14, 2020 10:36
[2020-06-14 11:11] VITALS: BP 131/57
--- NOTE | 2020-06-14 11:37 | NUR ---
SW following. Discussed with RN, Dr. Yeager supposedly coming today. COVID-19 test ordered in case pt is going to have surgery. PT/OT recommending SNU "for now" but possibly could DC on home health. SANGITA will continue to follow.
[2020-06-14 15:00] VITALS: BP 145/62
[2020-06-14 19:24] VITALS: BP 147/55
[2020-06-14] MEDS: INSULIN GLARGINE SYRINGE. SQ SCH (20:43)
[2020-06-14 23:57] VITALS: BP 138/47
[2020-06-15] MEDS: AMPICILLIN/SULBACTAM 3 GM in IV NORMAL SALINE 100ML 100 ML IV SCH ×4 (00:12→17:32)
[2020-06-15 03:47] VITALS: BP 104/62
[2020-06-15] MEDS: LEVOTHYROXINE 100 MCG TABLET PO SCH (06:08)
[2020-06-15 07:00] VITALS: BP 170/57
--- NOTE | 2020-06-15 08:51 | PDOC ---
PROGRESS NOTES Chief Complaint Chief Complaint A/P: Facial cellulitis - ID consulted as well as oral surgeon Sepsis - with facial cellulitis Acute reactive dental infection Elevated alkaline phosphatase Acute renal failurevasomotor nephropathy Dyslipidemia Hypertension UTI - will treat empirically, f/u culture results Urinary incontinence - will have bladder training with OT Morbid obesity BMI 50 - counseled on weight loss Bilateral knee pain left greater than right - improved after prior injections Diabetes type 2 uncontrolled - will place on basal bolus plus regimen while hospitalized. A1c 8.5 Hypertension, controlled - cont meds Hypothyroidism - TSH WNL, will cont 200mcg levothyroxine dosing Diarrhea - C diff negative, can take immodium and psyllium FEN - ADA diet PPX - lovenox FULL CODE Dispo -inpatient likely 2 midnights History of Present Illness History of Present Illness Ms Kenney is a 74yo F w/ PMHx DM2, HLD, HTN, CAD s/p stenting who p/w right sided facial pain, found with cellulitis as well as UTI. 06/10: Still having right-sided facial swelling and pain. No pain on putting her upper dentures in. No shortness of breath or chest pain. Still has dysuria and episodic incontinence. 06/11: Urine culture negative. Right face swelling improved. Oral surgery consult pending. 06/12: Afebrile. Facial swelling is improved. She is very weak was barely able to get up on her own. No shortness of breath or chest pain 06/13: Afebrile. C diff negative. Swelling and pain a bit improved. Dysuria improving. 06/14: States her facial swelling is improving and her pain is improving. Diarrhea is also improved. No shortness of breath or chest pain, afebrile Afebrile, right facial pain and swelling improved. No further discharge but small abscess at the gumline is notable. WBC normalized. Still with diarrhea Plan: I have been unable to contact oral maxillofacial surgery. Continue IV antibiotic's for now Transition to oral antibiotics if okay with ID on 06/16/2020 and have outpatient follow-up with oral maxillofacial surgery will continue on oral antibiotics on discharge Imodium is okay as needed as she is negative for C. difficile Vitals Vitals Vital Signs Date Time Temp Pulse Resp B/P (MAP) Pulse Ox O2 Delivery O2 Flow Rate FiO2 06/15/20 07:00 97.9 64 18 170/57 (94) 96 Room Air 97.9 Physical Exam Physical Exam GENERAL: The patient is alert oriented x3 in nad HEENT: Pupils equally round. Oropharynx pink, moist. She has upper dentures and partial on lower. Right cheek and jaw area is swollen and very tender. States is improving locally. There are no lesions seen in the mouth. NECK: Supple. LUNGS: Clear to auscultation. HEART: S1 and S2. ABDOMEN: Obese, soft, nontender. EXTREMITIES: No gross edema or cyanosis. SKIN: Warm to touch. No signs of rash. NEUROLOGIC: Alert and answering questions appropriately. General: Alert, Oriented X3, Cooperative, mild distress Heart: Regular rate, Normal S1, Normal S2 Lungs: Clear Abdomen: Normal bowel sounds, Soft Extremities: No cyanosis Labs LABS Laboratory Tests Test 06/14/20 11:42 06/14/20 16:57 06/14/20 18:20 06/14/20 19:52 Glucose (Fingerstick) 193 mg/dL (70-99) 142 mg/dL (70-99) 83 mg/dL (70-99) SARS-CoV-2 Antigen (Rapid) Negative (NEGATIVE) Test 06/15/20 07:16 Glucose (Fingerstick) 165 mg/dL (70-99) Assessment and Plan Assessmemt and Plan Problems Medical Problems: (1) Dental infection Status: Acute (2) Generalized weakness Status: Acute (3) Urinary tract infection Status: Acute Comment Review of Relevant I have reviewed the following items jina (where applicable) has been applied. Labs Laboratory Tests Test 06/13/20 10:55 06/13/20 16:33 06/13/20 20:06 06/14/20 08:05 Glucose (Fingerstick) 225 mg/dL (70-99) 82 mg/dL (70-99) 173 mg/dL (70-99) 162 mg/dL (70-99) Test 06/14/20 11:42 06/14/20 16:57 06/14/20 18:20 06/14/20 19:52 Glucose (Fingerstick) 193 mg/dL (70-99) 142 mg/dL (70-99) 83 mg/dL (70-99) SARS-CoV-2 Antigen (Rapid) Negative (NEGATIVE) Test 06/15/20 07:16 Glucose (Fingerstick) 165 mg/dL (70-99) Laboratory Tests Test 06/14/20 11:42 06/14/20 16:57 06/14/20 18:20 06/14/20 19:52 Glucose (Fingerstick) 193 mg/dL (70-99) 142 mg/dL (70-99) 83 mg/dL (70-99) SARS-CoV-2 Antigen (Rapid) Negative (NEGATIVE) Test 06/15/20 07:16 Glucose (Fingerstick) 165 mg/dL (70-99) Microbiology 06/08/20 Urine Culture - Final, Complete Medications Current Medications Clindamycin HCl (Cleocin) 600 mg 1X ONCE PO Last administered on 06/08/20at 16:59; Start 06/08/20 at 16:15; Stop 06/08/20 at 16:16; Status DC Oxycodone/ Acetaminophen (Percocet 5/325) 2 tab 1X ONCE PO Last administered on 06/08/20at 16:59; Start 06/08/20 at 16:15; Stop 06/08/20 at 16:16; Status DC Sodium Chloride 1,000 ml @ 1,000 mls/hr 1X ONCE IV Last administered on 06/08/20at 16:44; Start 06/08/20 at 16:30; Stop 06/08/20 at 17:29; Status DC Ceftriaxone Sodium (Rocephin) 1 gm 1X ONCE IVP Last administered on 06/08/20at 17:49; Start 06/08/20 at 17:30; Stop 06/08/20 at 17:32; Status DC Ondansetron HCl (Zofran) 4 mg PRN Q8HRS PRN IV NAUSEA/VOMITING; Start 06/08/20 at 17:30; Stop 06/09/20 at 17:29; Status DC Sodium Chloride 1,000 ml @ 125 mls/hr Q8H IV Last administered on 06/09/20at 10:33; Start 06/08/20 at 17:27; Stop 06/09/20 at 17:26; Status DC Acetaminophen (Tylenol) 650 mg PRN Q4HRS PRN PO FEVER > 100.3'F; Start 06/08/20 at 17:30; Stop 06/09/20 at 17:29; Status DC Sodium Chloride 1,000 ml @ 125 mls/hr 1X ONCE IV Last administered on 06/08/20at 22:36; Start 06/08/20 at 18:00; Stop 06/09/20 at 01:59; Status DC Heparin Sodium (Porcine) (Heparin Sodium) 5,000 unit Q12HR SQ Last administered on 06/14/20at 20:39; Start 06/08/20 at 21:00 Ceftriaxone Sodium (Rocephin) 1 gm Q24H IVP ; Start 06/09/20 at 18:00; Stop 06/09/20 at 12:00; Status DC Diphenhydramine HCl (Benadryl) 25 mg PRN QHS PRN PO INSOMNIA Last administered on 06/10/20at 01:59; Start 06/09/20 at 08:45 Fluoxetine HCl (PROzac) 20 mg DAILY PO Last administered on 06/14/20at 08:19; Start 06/09/20 at 09:00 Nitroglycerin (Nitrostat) 0.4 mg PRN Q5MIN PRN SL CHEST PAIN; Start 06/09/20 at 08:45 Senna/Docusate Sodium (Senna Plus) 1 tab PRN DAILY PRN PO CONSTIPATION Last administered on 06/10/20at 09:20; Start 06/09/20 at 08:45 Spironolactone (Aldactone) 25 mg DAILY PO Last administered on 06/14/20at 08:19; Start 06/09/20 at 09:00 Carvedilol (Coreg) 12.5 mg BIDWMEALS PO Last administered on 06/14/20at 18:07; Start 06/09/20 at 09:00 Levothyroxine Sodium (Synthroid) 200 mcg DAILY06 PO Last administered on 06/15/20at 06:08; Start 06/09/20 at 10:30 Lactobacillus Rhamnosus (Culturelle) 1 cap BID PO Last administered on 06/14/20at 20:30; Start 06/09/20 at 21:00 Acetaminophen/ Hydrocodone Bitart (Lortab 7.5/325) 1 tab PRN TID PRN PO MODERATE PAIN Last administered on 06/14/20at 20:38; Start 06/09/20 at 11:15 Non-Formulary Medication (Insulin Aspart (Novolog Flexpen)) 100 unit TID PRN PRN SQ hyperglycemia; Start 06/09/20 at 11:15; Stop 06/09/20 at 11:29; Status DC Insulin Glargine (Lantus Syringe) 20 unit QHS SQ Last administered on 06/10/20at 21:00; Start 06/09/20 at 21:00; Stop 06/11/20 at 13:09; Status DC Insulin Human Lispro (HumaLOG) 0-9 UNITS TIDWMEALS SQ Last administered on 06/14/20at 18:20; Start 06/09/20 at 12:00 Dextrose (Dextrose 50%-Water Syringe) 12.5 gm PRN Q15MIN PRN IV SEE COMMENTS; Start 06/09/20 at 11:30 Ampicillin Sodium/ Sulbactam Sodium 3 gm/Sodium Chloride 100 ml @ 200 mls/hr Q6HRS IV Last administered on 06/15/20at 06:08; Start 06/09/20 at 12:00 Linezolid/Dextrose 300 ml @ 300 mls/hr Q12HR IV Last administered on 06/14/20at 20:30; Start 06/09/20 at 12:00 Insulin Glargine (Lantus Syringe) 24 unit QHS SQ Last administered on 06/13/20at 22:46; Start 06/11/20 at 21:00 Active Scripts Active Novolog Flexpen (Insulin Aspart) 100 Unit/1 Ml Insuln.pen 100 Unit SQ TID PRN PRN Reported Fluoxetine Hcl 20 Mg Capsule 20 Mg PO DAILY 90 Days Lantus Solostar (Insulin Glargine,Hum.rec.anlog) 100 Unit/1 Ml Insuln.pen 20 Unit SQ QHS Senokot-S Tablet (Sennosides/Docusate Sodium) 1 Each Tablet 1 Each PO PRN DAILY PRN Benadryl (Diphenhydramine Hcl) 25 Mg Capsule 25 Mg PO PRN QHS PRN Acetaminophen 500 Mg Tablet 500 Mg PO PRN Q6HRS PRN Spironolactone 25 Mg Tablet 25 Mg PO DAILY Colace (Docusate Sodium) 100 Mg Capsule 100 Mg PO PRN DAILY PRN Coreg (Carvedilol) 25 Mg Tablet 12.5 Mg PO BIDWMEALS Nitrostat (Nitroglycerin) 0.4 Mg Tab.subl 0.4 Mg SL PRN Q5MIN PRN Hydrocodone-Apap 7.5-325 (Hydrocodone Bit/Acetaminophen) 1 Tab Tablet 1 Tab PO PRN TID PRN Synthroid (Levothyroxine Sodium) 200 Mcg Tablet 200 Mcg PO DAILY Vitals/I & O Vital Sign - Last 24 Hours 06/14/20 06/14/20 06/14/20 06/14/20 11:11 15:00 18:07 19:24 Temp 98.2 98.1 98.7 98.2 98.1 98.7 Pulse 72 76 58 64 Resp 20 20 16 B/P (MAP) 131/57 (81) 145/62 (89) 159/63 147/55 (85) Pulse Ox 97 98 96 O2 Delivery Room Air Room Air Room Air 06/14/20 06/14/20 06/14/20 06/14/20 20:10 20:38 22:17 23:57 Temp 98.0 98.0 Pulse 50 Resp 18 16 B/P (MAP) 138/47 (77) Pulse Ox 96 96 94 O2 Delivery Room Air Room Air Room Air Room Air 06/15/20 06/15/20 03:47 07:00 Temp 98.1 97.9 98.1 97.9 Pulse 58 64 Resp 16 18 B/P (MAP) 104/62 (76) 170/57 (94) Pulse Ox 96 96 O2 Delivery Room Air Room Air Intake and Output 06/14/20 06/14/20 06/15/20 15:00 23:00 07:00 Intake Total 600 ml 200 ml 120 ml Balance 600 ml 200 ml 120 ml Justicifation of Admission Dx: Justifications for Admission: Justification of Admission Dx: HILDA Haley MD Jun 15, 2020 08:51
[2020-06-15] MEDS: SPIRONOLACTONE 25 MG TABLET PO SCH (09:46)
[2020-06-15] MEDS: LACTOBACILLUS RHAMNOSUS GG 1 CAPSULE. PO SCH ×2 (09:46→21:58)
[2020-06-15] MEDS: FERROUS SULFATE 325 MG TABLET. PO SCH (09:47)
[2020-06-15] MEDS: FLUoxetine HCL 20 MG CAPSULE PO SCH (09:47)
[2020-06-15] MEDS: INSULIN LISPRO 300 UNITS/3 ML VIAL. SQ SCH ×3 (09:58→17:00)
[2020-06-15] MEDS: HEPARIN for SUB-Q USE 5,000 UNIT/ML VIAL. SQ SCH ×2 (09:59→21:55)
[2020-06-15] MEDS ORDERED: LOPERAMIDE 2 MG CAPSULE PO PRN (10:15)
--- NOTE | 2020-06-15 10:24 | PDOC ---
Infectious Disease Note Subjective: Subjective Patient states pain and swelling over the right cheek improving Continues to have diarrhea Denies fever, nausea, vomiting, shortness of breath,abdominal pain, rash Otherwise as above Vital Signs: Vital Signs Vital Signs Date Time Temp Pulse Resp B/P (MAP) Pulse Ox O2 Delivery O2 Flow Rate FiO2 06/15/20 07:00 97.9 64 18 170/57 (94) 96 Room Air 97.9 Physical Exam: PHYSICAL EXAM GENERAL: The patient is alert oriented x3 in nad HEENT: Pupils equally round. Oropharynx pink, moist. She has upper dentures and partial on lower. Right cheek and jaw area is swollen and very tender. States is improving locally. There are no lesions seen in the mouth. NECK: Supple. LUNGS: Clear to auscultation. HEART: S1 and S2. ABDOMEN: Obese, soft, nontender. EXTREMITIES: No gross edema or cyanosis. SKIN: Warm to touch. No signs of rash. NEUROLOGIC: Alert and answering questions appropriately. Medications: Inpatient Meds: Current Medications Medications (Trade) Dose Ordered Sig/Natasha Start Time Stop Time Status Last Admin Dose Admin Acetaminophen (Tylenol) 650 mg PRN Q4HRS PRN 06/08/20 17:30 06/09/20 17:29 DC Acetaminophen/ Hydrocodone Bitart (Lortab 7.5/325) 1 tab PRN TID PRN 06/09/20 11:15 06/14/20 20:38 1 TAB Ampicillin Sodium/ Sulbactam Sodium 3 gm/Sodium Chloride 100 ml @ 200 mls/hr Q6HRS 06/09/20 12:00 06/15/20 06:08 200 MLS/HR Carvedilol (Coreg) 12.5 mg BIDWMEALS 06/09/20 09:00 06/14/20 18:07 12.5 MG Ceftriaxone Sodium (Rocephin) 1 gm Q24H 06/09/20 18:00 06/09/20 12:00 DC Clindamycin HCl (Cleocin) 600 mg 1X ONCE 06/08/20 16:15 06/08/20 16:16 DC 06/08/20 16:59 600 MG Dextrose (Dextrose 50%-Water Syringe) 12.5 gm PRN Q15MIN PRN 06/09/20 11:30 Diphenhydramine HCl (Benadryl) 25 mg PRN QHS PRN 06/09/20 08:45 06/10/20 01:59 25 MG Ferrous Sulfate (Feosol) 325 mg DAILYWBKFT 06/15/20 09:00 06/15/20 09:47 325 MG Fluoxetine HCl (PROzac) 20 mg DAILY 06/09/20 09:00 06/15/20 09:47 20 MG Heparin Sodium (Porcine) (Heparin Sodium) 5,000 unit Q12HR 06/08/20 21:00 06/15/20 09:59 5,000 UNIT Insulin Glargine (Lantus Syringe) 24 unit QHS 06/11/20 21:00 06/13/20 22:46 24 UNIT Insulin Human Lispro (HumaLOG) 0-9 UNITS TIDWMEALS 06/09/20 12:00 06/15/20 09:58 10 UNITS Lactobacillus Rhamnosus (Culturelle) 1 cap BID 06/09/20 21:00 06/15/20 09:46 1 CAP Levothyroxine Sodium (Synthroid) 200 mcg DAILY06 06/09/20 10:30 06/15/20 06:08 200 MCG Linezolid/Dextrose 300 ml @ 300 mls/hr Q12HR 06/09/20 12:00 06/14/20 20:30 300 MLS/HR Loperamide HCl (Imodium) 2 mg PRN Q15MIN PRN 06/15/20 10:15 Nitroglycerin (Nitrostat) 0.4 mg PRN Q5MIN PRN 06/09/20 08:45 Non-Formulary Medication (Insulin Aspart (Novolog Flexpen)) 100 unit TID PRN PRN 06/09/20 11:15 06/09/20 11:29 DC Ondansetron HCl (Zofran) 4 mg PRN Q8HRS PRN 06/08/20 17:30 06/09/20 17:29 DC Oxycodone/ Acetaminophen (Percocet 5/325) 2 tab 1X ONCE 06/08/20 16:15 06/08/20 16:16 DC 06/08/20 16:59 2 TAB Psyllium Hydrophilic Mucilloid (Metamucil Fiber Packet) 1 pkt DAILY 06/15/20 10:15 Senna/Docusate Sodium (Senna Plus) 1 tab PRN DAILY PRN 06/09/20 08:45 06/10/20 09:20 1 TAB Sodium Chloride 1,000 ml @ 125 mls/hr 1X ONCE 06/08/20 18:00 06/09/20 01:59 DC 06/08/20 22:36 125 MLS/HR Spironolactone (Aldactone) 25 mg DAILY 06/09/20 09:00 06/15/20 09:46 25 MG Labs: Lab Laboratory Tests Test 06/14/20 11:42 06/14/20 16:57 06/14/20 18:20 06/14/20 19:52 Glucose (Fingerstick) 193 mg/dL (70-99) 142 mg/dL (70-99) 83 mg/dL (70-99) SARS-CoV-2 Antigen (Rapid) Negative (NEGATIVE) Test 06/15/20 07:16 Glucose (Fingerstick) 165 mg/dL (70-99) Objective: Assessment: 1. Right Facial cellulitis. Improving 2. Dental infection suspected. 3. Leukocytosis. 4. Renal insufficiency. 5. History of VRE. 6. Diabetes. 7. Obesity. 8. Pyuria , UC negative 9. Diarrhea C. difficile negative Plan: Plan of Care cont Unasyn DC Zyvox s/p ceftriaxone before Dental eval pending C. difficile negative Probiotics Local care Supportive care Discussed with nursing SHEREE ANTUNEZ MD Jun 15, 2020 10:24
[2020-06-15 11:22] VITALS: BP 163/59
[2020-06-15] MEDS: CARVEDILOL 12.5 MG TABLET. PO SCH ×2 (11:59→17:31)
[2020-06-15] MEDS: PSYLLIUM HUSK (SUGAR FREE) 1 PKT PACKET PO SCH (11:59)
[2020-06-15 15:00] VITALS: BP 176/69
[2020-06-15] MEDS: LIDO:MAALOX:BENADRYL 1:1:1 180 ML BOTTLE. PO PRN (16:32)
[2020-06-15] MEDS: HYDROcodone/APAP 7.5/325MG 1 TAB TABLET PO PRN ×2 (16:32→22:02)
[2020-06-15 19:55] VITALS: BP 144/52
[2020-06-15] MEDS: INSULIN GLARGINE SYRINGE. SQ SCH (21:00)
[2020-06-15 22:53] VITALS: BP 137/55
[2020-06-16] MEDS: AMPICILLIN/SULBACTAM 3 GM in IV NORMAL SALINE 100ML 100 ML IV SCH ×5 (00:08→23:31)
[2020-06-16 02:59] VITALS: BP 134/61
[2020-06-16] MEDS: LEVOTHYROXINE 100 MCG TABLET PO SCH (06:14)
[2020-06-16 07:00] VITALS: BP 186/67
--- NOTE | 2020-06-16 08:10 | NUR ---
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
--- NOTE | 2020-06-16 08:35 | PDOC ---
[facility] PROGRESS NOTE Chief Complaint Chief Complaint A/P: Facial cellulitis - ID consulted as well as oral surgeon Sepsis - with facial cellulitis Acute reactive dental infection Elevated alkaline phosphatase Acute renal failurevasomotor nephropathy Dyslipidemia Hypertension UTI - will treat empirically, f/u culture results Urinary incontinence - will have bladder training with OT Morbid obesity BMI 50 - counseled on weight loss Bilateral knee pain left greater than right - improved after prior injections Diabetes type 2 uncontrolled - will place on basal bolus plus regimen while hos pitalized. A1c 8.5 Hypertension, controlled - cont meds Hypothyroidism - TSH WNL, will cont 200mcg levothyroxine dosing Diarrhea - C diff negative, can take immodium and psyllium COVID 19 - asymptomatic save for her diarrhea. Test administered on 06/13/2020. Likely from broad community spread. Recommend her family be tested as well. FEN - ADA diet PPX - lovenox FULL CODE Dispo -inpatient likely 2 midnights History of Present Illness History of Present Illness Ms Kenney is a 74yo F w/ PMHx DM2, HLD, HTN, CAD s/p stenting who p/w right sided facial pain, found with cellulitis as well as UTI. 06/10: Still having right-sided facial swelling and pain. No pain on putting her upper dentures in. No shortness of breath or chest pain. Still has dysuria and episodic incontinence. 06/11: Urine culture negative. Right face swelling improved. Oral surgery consult pending. 06/12: Afebrile. Facial swelling is improved. She is very weak was barely able to get up on her own. No shortness of breath or chest pain 06/13: Afebrile. C diff negative. Swelling and pain a bit improved. Dysuria improving. 06/14: States her facial swelling is improving and her pain is improving. Diarrhea is also improved. No shortness of breath or chest pain, afebrile 06/15: Afebrile, right facial pain and swelling improved. No further discharge but small abscess at the gumline is notable. WBC normalized. Still with diarrhea COVID-19 PCR returns positive. She has no complaint of shortness of breath or c ough. Diarrhea still persists. Facial pain is a little bit better swelling is improved. Plan: I have been unable to contact oral maxillofacial surgery. Continue IV antibiotic's for now Transition to oral antibiotics if okay with ID and have outpatient follow-up with oral maxillofacial surgery will continue on oral antibiotics on discharge Imodium is okay as needed as she is negative for C. difficile She is going to look into how she is doing to manage her living situation as she lives with 3 other people including her daughter and with her COVID-19 test positive she does need to quarantine on discharge. Vitals/I&O Vitals/I&O: Vital Signs Date Time Temp Pulse Resp B/P (MAP) Pulse Ox O2 Delivery O2 Flow Rate FiO2 06/16/20 02:59 97.7 58 18 134/61 (85) 97 Room Air 97.7 I & O 06/15/20 06/15/20 06/16/20 15:00 23:00 07:00 Intake Total 500 ml 450 ml 150 ml Balance 500 ml 450 ml 150 ml Physical Exam Physical Exam: GENERAL: The patient is alert oriented x3 in nad HEENT: Pupils equally round. Oropharynx pink, moist. She has upper dentures and partial on lower. Right cheek and jaw area is swollen and very tender. States is improving locally. There are no lesions seen in the mouth. NECK: Supple. LUNGS: Clear to auscultation. HEART: S1 and S2. ABDOMEN: Obese, soft, nontender. EXTREMITIES: No gross edema or cyanosis. SKIN: Warm to touch. No signs of rash. NEUROLOGIC: Alert and answering questions appropriately. General: Alert, Oriented X3, Cooperative, mild distress Heart: Regular rate, Normal S1, Normal S2 Lungs: Clear Abdomen: Normal bowel sounds, Soft Extremities: No cyanosis Labs Labs: Laboratory Tests Test 06/15/20 10:42 06/15/20 16:38 06/15/20 20:29 06/16/20 07:57 Glucose (Fingerstick) 219 mg/dL (70-99) 82 mg/dL (70-99) 172 mg/dL (70-99) 139 mg/dL (70-99) Assessment and Plan Assessmemt and Plan Problems Medical Problems: (1) Dental infection Status: Acute (2) Generalized weakness Status: Acute (3) Urinary tract infection Status: Acute Comment Review of Relevant I have reviewed the following items jina (where applicable) has been applied. Medications: Current Medications Medications (Trade) Dose Ordered Sig/Natasha Route PRN Reason Start Time Stop Time Status Last Admin Dose Admin Ferrous Sulfate (Feosol) 325 mg DAILYWBKFT PO 06/15/20 09:00 06/15/20 09:47 Loperamide HCl (Imodium) 2 mg PRN Q15MIN PRN PO DIARRHEA 06/15/20 10:15 06/15/20 11:59 Psyllium Hydrophilic Mucilloid (Metamucil Fiber Packet) 1 pkt DAILY PO 06/15/20 10:15 06/15/20 11:59 Multi-Ingredient Mouthwash/Gargle (Magic Mouthwash) 10 ml PRN QID PRN PO MOUTH PAIN 06/15/20 14:00 06/15/20 16:32 Justicifation of Admission Dx: Justifications for Admission: Justification of Admission Dx: HILDA Haley MD Jun 16, 2020 08:35
--- NOTE | 2020-06-16 08:58 | PDOC ---
Infectious Disease Note Subjective: Subjective Patient states pain and swelling over the right cheek improving Diarrhea improving Denies fever, nausea, vomiting, shortness of breath,abdominal pain, rash Otherwise as above Tearful as COVID-19 test came back positive Vital Signs: Vital Signs Vital Signs Date Time Temp Pulse Resp B/P (MAP) Pulse Ox O2 Delivery O2 Flow Rate FiO2 06/16/20 02:59 97.7 58 18 134/61 (85) 97 Room Air 97.7 Physical Exam: PHYSICAL EXAM GENERAL: The patient is alert oriented x3 in nad HEENT: Pupils equally round. Oropharynx pink, moist. She has upper dentures and partial on lower. Right cheek and jaw area is swollen and very tender. States is improving locally. There are no lesions seen in the mouth. NECK: Supple. LUNGS: Clear to auscultation. HEART: S1 and S2. ABDOMEN: Obese, soft, nontender. EXTREMITIES: No gross edema or cyanosis. SKIN: Warm to touch. No signs of rash. NEUROLOGIC: Alert and answering questions appropriately. Medications: Inpatient Meds: Current Medications Medications (Trade) Dose Ordered Sig/Natasha Start Time Stop Time Status Last Admin Dose Admin Acetaminophen (Tylenol) 650 mg PRN Q4HRS PRN 06/08/20 17:30 06/09/20 17:29 DC Acetaminophen/ Hydrocodone Bitart (Lortab 7.5/325) 1 tab PRN TID PRN 06/09/20 11:15 06/15/20 22:02 1 TAB Ampicillin Sodium/ Sulbactam Sodium 3 gm/Sodium Chloride 100 ml @ 200 mls/hr Q6HRS 06/09/20 12:00 06/16/20 06:15 200 MLS/HR Carvedilol (Coreg) 12.5 mg BIDWMEALS 06/09/20 09:00 06/15/20 17:31 12.5 MG Ceftriaxone Sodium (Rocephin) 1 gm Q24H 06/09/20 18:00 06/09/20 12:00 DC Clindamycin HCl (Cleocin) 600 mg 1X ONCE 06/08/20 16:15 06/08/20 16:16 DC 06/08/20 16:59 600 MG Dextrose (Dextrose 50%-Water Syringe) 12.5 gm PRN Q15MIN PRN 06/09/20 11:30 Diphenhydramine HCl (Benadryl) 25 mg PRN QHS PRN 06/09/20 08:45 06/10/20 01:59 25 MG Ferrous Sulfate (Feosol) 325 mg DAILYWBKFT 06/15/20 09:00 06/15/20 09:47 325 MG Fluoxetine HCl (PROzac) 20 mg DAILY 06/09/20 09:00 06/15/20 09:47 20 MG Heparin Sodium (Porcine) (Heparin Sodium) 5,000 unit Q12HR 06/08/20 21:00 06/15/20 21:55 5,000 UNIT Insulin Glargine (Lantus Syringe) 24 unit QHS 06/11/20 21:00 06/15/20 21:00 24 UNIT Insulin Human Lispro (HumaLOG) 0-9 UNITS TIDWMEALS 06/09/20 12:00 06/15/20 12:19 15 UNITS Lactobacillus Rhamnosus (Culturelle) 1 cap BID 06/09/20 21:00 06/15/20 21:58 1 CAP Levothyroxine Sodium (Synthroid) 200 mcg DAILY06 06/09/20 10:30 06/16/20 06:14 200 MCG Linezolid/Dextrose 300 ml @ 300 mls/hr Q12HR 06/09/20 12:00 06/15/20 10:25 DC 06/14/20 20:30 300 MLS/HR Loperamide HCl (Imodium) 2 mg PRN Q15MIN PRN 06/15/20 10:15 06/15/20 11:59 2 MG Multi-Ingredient Mouthwash/Gargle (Magic Mouthwash) 10 ml PRN QID PRN 06/15/20 14:00 06/15/20 16:32 10 ML Nitroglycerin (Nitrostat) 0.4 mg PRN Q5MIN PRN 06/09/20 08:45 Non-Formulary Medication (Insulin Aspart (Novolog Flexpen)) 100 unit TID PRN PRN 06/09/20 11:15 06/09/20 11:29 DC Ondansetron HCl (Zofran) 4 mg PRN Q8HRS PRN 06/08/20 17:30 06/09/20 17:29 DC Oxycodone/ Acetaminophen (Percocet 5/325) 2 tab 1X ONCE 06/08/20 16:15 06/08/20 16:16 DC 06/08/20 16:59 2 TAB Psyllium Hydrophilic Mucilloid (Metamucil Fiber Packet) 1 pkt DAILY 06/15/20 10:15 06/15/20 11:59 1 PKT Senna/Docusate Sodium (Senna Plus) 1 tab PRN DAILY PRN 06/09/20 08:45 06/10/20 09:20 1 TAB Sodium Chloride 1,000 ml @ 125 mls/hr 1X ONCE 06/08/20 18:00 06/09/20 01:59 DC 06/08/20 22:36 125 MLS/HR Spironolactone (Aldactone) 25 mg DAILY 06/09/20 09:00 06/15/20 09:46 25 MG Labs: Lab Laboratory Tests Test 06/15/20 10:42 06/15/20 16:38 06/15/20 20:29 06/16/20 07:57 Glucose (Fingerstick) 219 mg/dL (70-99) 82 mg/dL (70-99) 172 mg/dL (70-99) 139 mg/dL (70-99) Objective: Assessment: 1. Right Facial cellulitis. Improving 2. Dental infection suspected. 3. Leukocytosis. 4. Renal insufficiency. 5. History of VRE. 6. Diabetes. 7. Obesity. 8. Pyuria , UC negative 9. Diarrhea C. difficile negative 10. COVID-19 positive Plan: Plan of Care Patient remains on room air cont Unasyn Dental eval pending C. difficile negative Probiotics Local care Supportive care Discussed with nursing SHEREE ANTUNEZ MD Jun 16, 2020 08:58
[2020-06-16] MEDS: SPIRONOLACTONE 25 MG TABLET PO SCH (10:15)
[2020-06-16] MEDS: PSYLLIUM HUSK (SUGAR FREE) 1 PKT PACKET PO SCH (10:15)
[2020-06-16] MEDS: CARVEDILOL 12.5 MG TABLET. PO SCH ×2 (10:15→17:35)
[2020-06-16] MEDS: FLUoxetine HCL 20 MG CAPSULE PO SCH (10:16)
[2020-06-16] MEDS: FERROUS SULFATE 325 MG TABLET. PO SCH (10:16)
[2020-06-16] MEDS: LACTOBACILLUS RHAMNOSUS GG 1 CAPSULE. PO SCH ×2 (10:16→20:27)
[2020-06-16] MEDS: HYDROcodone/APAP 7.5/325MG 1 TAB TABLET PO PRN ×2 (10:21→23:31)
[2020-06-16] MEDS: HEPARIN for SUB-Q USE 5,000 UNIT/ML VIAL. SQ SCH ×2 (10:30→20:28)
[2020-06-16] MEDS: INSULIN LISPRO 300 UNITS/3 ML VIAL. SQ SCH ×3 (10:31→17:00)
--- NOTE | 2020-06-16 11:05 | NUR ---
PATIENT TRANSFERRED TO ROOM 671, EMOTIONAL SUPPORT GIVEN.
[2020-06-16 11:28] VITALS: BP 136/58
[2020-06-16] MEDS: LIDO:MAALOX:BENADRYL 1:1:1 180 ML BOTTLE. PO PRN ×2 (13:51→17:34)
[2020-06-16 15:56] VITALS: BP 142/68
[2020-06-16 19:00] VITALS: BP 160/67
[2020-06-16] MEDS: INSULIN GLARGINE SYRINGE. SQ SCH (20:28)
[2020-06-16 23:13] VITALS: BP 145/65
[2020-06-17 03:48] VITALS: BP 141/65
[2020-06-17] MEDS: LEVOTHYROXINE 100 MCG TABLET PO SCH (06:09)
[2020-06-17] MEDS: AMPICILLIN/SULBACTAM 3 GM in IV NORMAL SALINE 100ML 100 ML IV SCH (06:09)
[2020-06-17 07:00] VITALS: BP 192/78
[2020-06-17] MEDS: INSULIN LISPRO 300 UNITS/3 ML VIAL. SQ SCH ×3 (08:00→17:00)
[2020-06-17] MEDS: SPIRONOLACTONE 25 MG TABLET PO SCH (09:26)
[2020-06-17] MEDS: FLUoxetine HCL 20 MG CAPSULE PO SCH (09:26)
[2020-06-17] MEDS: FERROUS SULFATE 325 MG TABLET. PO SCH (09:27)
[2020-06-17] MEDS: CARVEDILOL 12.5 MG TABLET. PO SCH ×2 (09:27→18:27)
[2020-06-17] MEDS: HEPARIN for SUB-Q USE 5,000 UNIT/ML VIAL. SQ SCH (09:29)
[2020-06-17] MEDS: LACTOBACILLUS RHAMNOSUS GG 1 CAPSULE. PO SCH (09:30)
[2020-06-17] MEDS: PSYLLIUM HUSK (SUGAR FREE) 1 PKT PACKET PO SCH (09:30)
--- NOTE | 2020-06-17 10:02 | PDOC ---
Infectious Disease Note Subjective Subjective Patient states pain and swelling over the right cheek improving Diarrhea improving Denies fever, nausea, vomiting, shortness of breath,abdominal pain, rash Otherwise as above Vital Sign Vital Signs Vital Signs Date Time Temp Pulse Resp B/P (MAP) Pulse Ox O2 Delivery O2 Flow Rate FiO2 06/17/20 09:27 63 192/78 06/17/20 07:00 98.9 17 96 Room Air 98.9 Physical Exam PHYSICAL EXAM GENERAL: The patient is alert oriented x3 in nad - in bed HEENT: Pupils equally round. Oropharynx pink, moist. She has upper dentures and partial on lower. Right cheek and jaw area is min if any swollen and no gross tenderness. States is improving locally. There are no lesions seen in the mouth. NECK: Supple. LUNGS: Clear to auscultation. HEART: S1 and S2. ABDOMEN: Obese, soft, nontender. EXTREMITIES: No gross edema or cyanosis. SKIN: Warm to touch. No signs of rash. NEUROLOGIC: Alert and answering questions appropriately. Labs Lab Laboratory Tests Test 06/16/20 11:03 06/16/20 16:28 06/16/20 16:55 06/16/20 20:38 Glucose (Fingerstick) 237 mg/dL (70-99) 51 mg/dL (70-99) 87 mg/dL (70-99) 175 mg/dL (70-99) Test 06/17/20 07:35 Glucose (Fingerstick) 136 mg/dL (70-99) Micro Microbiology 06/08/20 Urine Culture - Final, Complete Objective Assessment 1. Right Facial cellulitis. Improving 2. Dental infection suspected. 3. Leukocytosis. 4. Renal insufficiency. 5. History of VRE. 6. Diabetes. 7. Obesity. 8. Pyuria , UC negative 9. Diarrhea C. difficile negative 10. COVID-19 positive 06/14 - asymptomatic Plan Plan of Care Patient remains on room air D/c Unasyn 06/09 begin augmentin for 10 days to allow dental f/u Dental eval will need to be outpatient C. difficile negative Probiotics Local care Supportive care Discussed with nursing ID to sign off LELAND HESS MD Jun 17, 2020 10:02
[2020-06-17] MEDS ORDERED: AMOXICILLIN/K CLAV 875/125MG TABLET. PO SCH (10:30)
[2020-06-17 11:17] VITALS: BP 202/63
--- NOTE | 2020-06-17 12:20 | PDOC ---
[facility] PROGRESS NOTE Chief Complaint Chief Complaint Sepsis - with facial cellulitis Acute reactive dental infection Elevated alkaline phosphatase Acute renal failurevasomotor nephropathy Dyslipidemia Hypertension UTI Urinary incontinence Morbid obesity BMI 50 Bilateral knee pain left greater than right Hypertension, controlled Hypothyroidism Diarrhea Diabetes COVID 19 - asymptomatic except for her diarrhea. Test administered on 06/13/2020 History of Present Illness History of Present Illness 06/17/2020 Patient seen and examined Charts reviewed Discussed with RN Ms Kenney is a 74yo F w/ PMHx DM2, HLD, HTN, CAD s/p stenting who p/w right sided facial pain, found with cellulitis as well as UTI. 06/10: Still having right-sided facial swelling and pain. No pain on putting her upper dentures in. No shortness of breath or chest pain. Still has dysuria and episodic incontinence. 06/11: Urine culture negative. Right face swelling improved. Oral surgery consult pending. 06/12: Afebrile. Facial swelling is improved. She is very weak was barely able to get up on her own. No shortness of breath or chest pain 06/13: Afebrile. C diff negative. Swelling and pain a bit improved. Dysuria im proving. 06/14: States her facial swelling is improving and her pain is improving. Diarrhea is also improved. No shortness of breath or chest pain, afebrile 06/15: Afebrile, right facial pain and swelling improved. No further discharge but small abscess at the gumline is notable. WBC normalized. Still with diarrhea COVID-19 PCR returns positive. She has no complaint of shortness of breath or cough. Diarrhea still persists. Facial pain is a little bit better swelling is improved. Plan: I have been unable to contact oral maxillofacial surgery. Continue IV antibiotic's for now Transition to oral antibiotics if okay with ID and have outpatient follow-up with oral maxillofacial surgery will continue on oral antibiotics on discharge Imodium is okay as needed as she is negative for C. difficile She is going to look into how she is doing to manage her living situation as she lives with 3 other people including her daughter and with her COVID-19 test positive she does need to quarantine on discharge. Vitals/I&O Vitals/I&O: Vital Signs Date Time Temp Pulse Resp B/P (MAP) Pulse Ox O2 Delivery O2 Flow Rate FiO2 06/17/20 11:17 98.3 60 17 202/63 (109) 97 Room Air 98.3 I & O 06/16/20 06/16/20 06/17/20 15:00 23:00 07:00 Intake Total 300 ml 100 ml Balance 300 ml 100 ml Physical Exam Physical Exam: GENERAL: The patient is alert oriented x3 in nad - in bed HEENT: Pupils equally round. Oropharynx pink, moist. She has upper dentures and partial on lower. Right cheek and jaw area is min if any swollen and no gross tenderness. States is improving locally. There are no lesions seen in the mouth. NECK: Supple. LUNGS: Clear to auscultation. HEART: S1 and S2. ABDOMEN: Obese, soft, nontender. EXTREMITIES: No gross edema or cyanosis. SKIN: Warm to touch. No signs of rash. NEUROLOGIC: Alert and answering questions appropriately. General: Alert, Oriented X3, Cooperative Heart: Regular rate, Normal S1, Normal S2 Lungs: Clear Abdomen: Normal bowel sounds, Soft Extremities: No cyanosis Skin: Other Labs Labs: Laboratory Tests Test 06/16/20 16:28 06/16/20 16:55 06/16/20 20:38 06/17/20 07:35 Glucose (Fingerstick) 51 mg/dL (70-99) 87 mg/dL (70-99) 175 mg/dL (70-99) 136 mg/dL (70-99) Test 06/17/20 10:37 Glucose (Fingerstick) 189 mg/dL (70-99) Assessment and Plan Assessmemt and Plan Problems Medical Problems: (1) Dental infection Status: Acute (2) Generalized weakness Status: Acute (3) Urinary tract infection Status: Acute Facial cellulitis - ID consulted as well as oral surgeon Sepsis - with facial cellulitis Acute reactive dental infection Elevated alkaline phosphatase Acute renal failurevasomotor nephropathy Dyslipidemia Hypertension UTI - will treat empirically, f/u culture results Urinary incontinence - will have bladder training with OT Morbid obesity BMI 50 - counseled on weight loss Bilateral knee pain left greater than right - improved after prior injections Diabetes type 2 uncontrolled - will place on basal bolus plus regimen while hospitalized. A1c 8.5 Hypertension, controlled - cont meds Hypothyroidism - TSH WNL, will cont 200mcg levothyroxine dosing Diarrhea - C diff negative, can take immodium and psyllium COVID 19 - asymptomatic save for her diarrhea. Test administered on 06/13/2020. Likely from broad community spread. Recommend her family be tested as well. IV antibiotics Trend labs Home meds DVT prophylaxis Full code Discharge when okay with infectious disease Comment Review of Relevant I have reviewed the following items jina (where applicable) has been applied. Medications: Current Medications Medications (Trade) Dose Ordered Sig/Natasha Route PRN Reason Start Time Stop Time Status Last Admin Dose Admin Amoxicillin/ Clavulanate Potassium (Augmentin 875/ 125mg) 1 tab BID PO 06/17/20 10:30 06/17/20 11:55 Justicifation of Admission Dx: Justifications for Admission: Justification of Admission Dx: CHANDLER Peacock III DO Jun 17, 2020 12:20
[2020-06-17] MEDS: HYDROcodone/APAP 7.5/325MG 1 TAB TABLET PO PRN (13:21)
[2020-06-17 15:00] VITALS: BP 147/63
[2020-06-17] MEDS ORDERED: LEVO200T5 PO (16:18)
[2020-06-17] MEDS ORDERED: AMOX1TAB61 PO (16:19)
[2020-06-17] MEDS ORDERED: INSU100V6 SQ (16:20)
--- NOTE | 2020-06-17 17:31 | NUR ---
SW following. Reviewed chart and spoke with RN and CM. Pt may need SNU. Pt transferred from the 4th floor. Pt waiting on oral surgery to see her. [facility] to follow.
[2020-06-17 19:00] VITALS: BP 178/77
--- NOTE | 2020-06-17 20:55 | NUR ---
Discharge Note: ROSAURA MERAZ [address] Discharge instructions and discharge home medications reviewed with Patient and a copy given. All questions have been answered and understanding verbalized. The following instructions and handouts were given: UTI, medication changes Discontinued lines and drains: Peripheral IV discontinued Patient discharged to Home or Self Care with Self via Wheelchair.
--- NOTE | 2020-06-18 09:21 | NUR ---
Patient discharged to home self care on oral medications and room air. [facility] for pt to see if HH needed. No further SW needs at this time. Addendum: 06/18/20 at 0923 by ARDEN QUESADA [phone]
--- NOTE | 2020-06-28 11:19 | DS ---
DATE OF DISCHARGE: 06/17/2020 ADMISSION DIAGNOSES: Facial cellulitis, dental infection, urinary tract infection, elevated alkaline phosphatase, acute renal failure, diabetes, hyperlipidemia, and hypertension. DISCHARGE DIAGNOSES: Resolving dental abscess, resolving facial cellulitis, resolving urinary tract infection, history of diabetes, hypertension, myocardial infarction, hyperlipidemia, appendectomy, cholecystectomy, tonsillectomy, gastric surgery for weight loss, Homero stent. CONSULTS: Infectious Disease and Oral Surgery (we were unable to obtain Oral Surgery consultation). PROCEDURES: None. HOSPITAL COURSE: The patient is a pleasant middle-aged female who basically presented with a dental abscess, facial cellulitis and incidental finding of a UTI. She was admitted. The above consults were obtained. We tried to get hold Oral Surgery, but to no avail. We eventually transitioned her over to p.o. antibiotics. She was doing well on 06/17. We discharged to home with close outpatient followup on p.o. antibiotics. DISPOSITION: Home. ACTIVITY: As tolerated. DIET: Low sodium. MEDICATIONS: Please see the MRAD. TOTAL TIME: 34 minutes. CHANDLER BLAKELY DO DR: MIRZA/marlo JOB#: [id number] / [id number]
== END 2020-06-17 20:55 | disposition home or self-care (01) | DRG 871 ==
LOC: ER 15:40 → 4 NORTH 17:27 → 5 NORTH 06-11 12:00 → 6 SOUTH 06-16 10:43
PROVIDERS: ADMIT Internal Medicine; ATTEND Internal Medicine
DX: A41.9 Sepsis, unspecified organism (principal); N17.0 Acute kidney failure with tubular necrosis; U07.1 COVID-19; L03.211 Cellulitis of face; N10 Acute pyelonephritis; N30.00 Acute cystitis without hematuria; Z68.43 Body mass index [BMI] 50.0-59.9, adult; Z68.42 Body mass index [BMI] 45.0-49.9, adult; E03.9 Hypothyroidism, unspecified; E11.65 Type 2 diabetes mellitus with hyperglycemia; E66.01 Morbid (severe) obesity due to excess calories; E78.00 Pure hypercholesterolemia, unspecified; E78.5 Hyperlipidemia, unspecified; I10 Essential (primary) hypertension; I25.10 Atherosclerotic heart disease of native coronary artery without angina pectoris; I25.2 Old myocardial infarction; K04.7 Periapical abscess without sinus; Z87.891 Personal history of nicotine dependence; Z90.49 Acquired absence of other specified parts of digestive tract; Z95.5 Presence of coronary angioplasty implant and graft; Z98.84 Bariatric surgery status; F32.9 Major depressive disorder, single episode, unspecified; K21.9 Gastro-esophageal reflux disease without esophagitis; M19.90 Unspecified osteoarthritis, unspecified site; Z88.8 Allergy status to other drugs, medicaments and biological substances
CPT/HCPCS: 36415; 70486; 80053; 81001; 82728; 82962; 83036; 83540; 83550; 84443; 84484; 85025; 86140; 87086; 87426; 87493; 93005; 96361; 96374; J0295; J0696; J1644; J1815; J2020; J7030; 97110-GO; 97110-GP; 97116-GP; 97530-GO; 97530-GP; 97535-GO; 99285-25; G0378; Q0163; U0003-CS

== ENCOUNTER 2020-12-02 17:33 | Inpatient (IN) | payer MEDICARE ==
[~2020-12-02] VITALS: Ht 170.2 cm; Wt 141.2 kg
[~2020-12-02 17:33] MED LIST changes: +AMLO-186 PO; -AMLO5TAB10 PO; +AMOX1TAB61 PO; +CLIN300C9 PO; +HYDR-3164 PO; +INSU100V6 SQ; +LEVO200T5 PO
[2020-12-02 18:24] LABS: BASO % 0 % (0-3); EOS # 0.1 x10^3/uL (0.0-0.7); EOS % 2 % (0-3); HEMATOCRIT 33.6 % (36.0-47.0); HEMOGLOBIN 10.7 g/dL (12.0-15.5); LYMPH # 2.3 x10^3/uL (1.0-4.8); LYMPH % 40 % (24-48); MEAN CORPUSCULAR HEMOGLOBIN 25 pg (25-35); MEAN CORPUSCULAR HGB CONC 32 g/dL (31-37); MEAN CORPUSCULAR VOLUME 77 fL (79-100); MONO # 0.4 x10^3/uL (0.0-1.1); MONO % 6 % (0-9); NEUT % 51 % (31-73); PLATELET COUNT 234 x10^3/uL (140-400); RED BLOOD COUNT 4.35 x10^6/uL (3.50-5.40); RED CELL DISTRIBUTION WIDTH 15.8 % (11.5-14.5); WHITE BLOOD COUNT 5.7 x10^3/uL (4.0-11.0)
[2020-12-02 18:39] LABS: CREATININE 1.6 mg/dL (0.6-1.0); GFR 31.3; POTASSIUM 4.5 mmol/L (3.5-5.1)
--- NOTE | 2020-12-02 18:42 | RAD ---
CT HEAD INDICATION: Fall, headache COMPARISON: 11/16/2019. Exposure: One or more of the following individualized dose reduction techniques were utilized for thi s examination: 1. Automated exposure control 2. Adjustment of the mA and/or kV according to patient size 3. Use of iterative reconstruction technique TECHNIQUE: 5 mm contiguous axial images were obtained from the skull base to the vertex in both bone and soft tissue algorithm. FINDINGS: Mild bilateral periventricular white matter hypodensities likely chronic small vessel ischemic diseas e. No evidence of acute intracranial hemorrhage. No extra-axial fluid collections. No mass effect or midline shift. Ventricular size is appropriate. Basal cisterns are patent. No fractures identified.Parks-white differentiation is preserved.Globes and orbits are within normal l imits. Mild opacification the bilateral mastoid air cells. IMPRESSION: No acute intracranial findings. Electronically signed by: Vance Ruth MD (12/02/2020 6:39 PM) [id number]
[2020-12-02 18:43] LABS: INFLUENZA A PATIENT NEGATIVE (NEGATIVE); INFLUENZA B PATIENT NEGATIVE (NEGATIVE)
[2020-12-02 18:51] LABS: ALBUMIN 2.8 g/dL (3.4-5.0); ALBUMIN/GLOBULIN RATIO 0.7 (1.0-1.7); CREATINE KINASE 47 U/L (26-192); MAGNESIUM 1.4 mg/dL (1.8-2.4); TOTAL BILIRUBIN 0.3 mg/dL (0.2-1.0); TOTAL PROTEIN 6.7 g/dL (6.4-8.2)
--- NOTE | 2020-12-02 19:16 | RAD ---
Examination: 3 views of the left knee and frontal view of the chest HISTORY: History of knee pain, chest pain COMPARISON: None available. FINDINGS: Severe joint space loss identified in the medial, lateral, patellofemoral compartments with calcifica tion identified just medial to the medial compartment could be an osteophyte, meniscal ossicle or joan cification meniscus is noted. Small enthesophyte identified at the attachment of the quadriceps tendo n to the patella. The cardiomediastinal silhouette grossly appears unremarkable. The lungs are clear. IMPRESSION: 1. 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 Calcification id entified just medial to the medial compartment could be an osteophyte, meniscal ossicle or calcificat ion of meniscus. 2. No acute cardiopulmonary findings. Electronically signed by: Vance Ruth MD (12/02/2020 7:14 PM) [id number]
[2020-12-02] MEDS: MORPHINE SULFATE 4 MG/ML VIAL. IV/SQ PRN ×3 (20:06→23:04)
[2020-12-02 21:13] LABS: BILIRUBIN,URINE SMALL (NEG); CLARITY,URINE TURBID; NITRITE,URINE NEGATIVE (NEG); PH,URINE 5.5 (<5.0-8.0); PROTEIN,URINE 100 mg/dL (NEG-TRACE); UROBILINOGEN,URINE 0.2 mg/dL (0.2 mg/dL)
[2020-12-02 21:20] LABS: BARBITURATES NEG (NEG); BENZODIAZEPINES NEG (NEG); CANNABINOIDS NEG (NEG); COCAINE NEG (NEG); METHADONE NEG (NEG); OPIATES POS (NEG); PHENCYCLIDINE NEG (NEG)
[2020-12-02 21:26] LABS: COLOR,URINE AMBER
[2020-12-02 21:27] LABS: BACTERIA,URINE MODERATE /HPF (0-FEW); WBC,URINE TNTC /HPF (0-4)
[2020-12-02 21:39] LABS: AMPHETAMINE/METHAMPHETAMINE NEG (NEG)
--- NOTE | 2020-12-02 23:23 | PHYS DOC ---
Past Medical History Past Medical History: Diabetes-Type II, High Cholesterol, Hypertension, [place], Other Additional Past Medical Histor: HEART STENTS Past Surgical History: Appendectomy, Cholecystectomy, Tonsillectomy Additional Past Surgical Histo: CARDIAC STENTS Smoking Status: Former Smoker Alcohol Use: Rarely Drug Use: None General Adult EDM: Chief Complaint: WEAKNESS/GENERALIZED HPI: HPI: Patient is a 75 year old female with history of diabetes type 2, hypertension, high cholesterol, cardiac stents, who presents to the ED today with multiple co mplaints. Patient reports 9 out of 10 left knee pain that began on Day after she fell. Patient denies any loss of consciousness. She is also complaining of mild posterior head pain that has been going on and off for 3 days. She is also complaining of nausea vomiting and diarrhea for 1 week. She is also complaining of generalized weakness that began today. Denies any fever. Denies any abdominal pain. Denies any chest pain or shortness of breath. Denies anything specifically exacerbating or relieving her knee pain and headache. She states today she tried getting out of the vehicle and was unable to get up due to weakness she states she was unable to ambulate. Review of Systems: Review of Systems: Constitutional: Denies fever or chills. [] Eyes: Denies change in visual acuity. [] HENT: Denies nasal congestion or sore throat. [] Respiratory: Denies cough or shortness of breath. [] Cardiovascular: Denies chest pain or edema. [] GI: Reports nausea vomiting and diarrhea. Denies abdominal pain, bloody stools or diarrhea. [] : Denies dysuria. [] Musculoskeletal: Denies back pain reports left knee pain. Integument: Denies rash. [] Neurologic: Reports headache, denies focal weakness or sensory changes. [] Psychiatric: Denies depression or anxiety. [] Heart Score: Risk Factors: Risk Factors: DM, Current or recent (<one month) smoker, HTN, HLP, family history of CAD, obesity. Risk Scores: Score 0 - 3: 2.5% MACE over next 6 weeks - Discharge Home Score 4 - 6: 20.3% MACE over next 6 weeks - Admit for Clinical Observation Score 7 - 10: 72.7% MACE over next 6 weeks - Early Invasive Strategies Current Medications: Current Medications Medications (Trade) Dose Ordered Sig/Natasha Start Time Stop Time Status Last Admin Dose Admin Morphine Sulfate (Morphine Sulfate) 4 mg PRN Q15MIN PRN 12/02/20 18:15 12/03/20 18:14 12/02/20 23:04 4 MG Allergies: Allergies: Allergies Coded Allergies Type Severity Reaction Last Updated Verified hydrochlorothiazide Allergy Intermediate Swelling 04/03/14 Yes valsartan Allergy Intermediate Swelling 04/03/14 Yes I S O L A T I O N *CONTACT* Allergy Unknown 12/07/19 Yes Physical Exam: PE: Constitutional: Well developed, well nourished, no acute distress, non-toxic appearance. [] HENT: Normocephalic, atraumatic, bilateral external ears normal, oropharynx moist, no oral exudates, nose normal. [] Eyes: PERRLA, EOMI, conjunctiva normal, no discharge. [] Neck: Normal range of motion, no tenderness, supple, no stridor. [] Cardiovascular:Heart rate regular rhythm, no murmur [] Lungs & Thorax: Bilateral breath sounds clear to auscultation [] Abdomen: Obese abdomen. Bowel sounds normal, soft, no tenderness, no masses, no pulsatile masses. [] Skin: Warm, dry, no erythema, no rash. [] Back: No tenderness, no CVA tenderness. [] Extremities: Left knee with no obvious deformity. Limited range of motion to th e left knee due to pain. +2 left pedal pulse. Cap refill less than 2 seconds to left lower extremity. Neurologic: Alert and oriented X 3, normal motor function, normal sensory f unction, no focal deficits noted. Cranial nerves II through XII intact Psychologic: Flat affect Current Patient Data: Labs: Laboratory Tests Test 12/02/20 18:06 12/02/20 21:00 12/02/20 21:45 White Blood Count 5.7 x10^3/uL (4.0-11.0) Red Blood Count 4.35 x10^6/uL (3.50-5.40) Hemoglobin 10.7 g/dL (12.0-15.5) L Hematocrit 33.6 % (36.0-47.0) L Mean Corpuscular Volume 77 fL (79-100) L Mean Corpuscular Hemoglobin 25 pg (25-35) Mean Corpuscular Hemoglobin Concent 32 g/dL (31-37) Red Cell Distribution Width 15.8 % (11.5-14.5) H Platelet Count 234 x10^3/uL (140-400) Neutrophils (%) (Auto) 51 % (31-73) Lymphocytes (%) (Auto) 40 % (24-48) Monocytes (%) (Auto) 6 % (0-9) Eosinophils (%) (Auto) 2 % (0-3) Basophils (%) (Auto) 0 % (0-3) Neutrophils # (Auto) 3.0 x10^3/uL (1.8-7.7) Lymphocytes # (Auto) 2.3 x10^3/uL (1.0-4.8) Monocytes # (Auto) 0.4 x10^3/uL (0.0-1.1) Eosinophils # (Auto) 0.1 x10^3/uL (0.0-0.7) Basophils # (Auto) 0.0 x10^3/uL (0.0-0.2) Prothrombin Time 13.0 SEC (11.7-14.0) Prothrombin Time INR 1.0 (0.8-1.1) Activated Partial Thromboplast Time 32 SEC (24-38) Sodium Level 136 mmol/L (136-145) Potassium Level 4.5 mmol/L (3.5-5.1) Chloride Level 100 mmol/L (98-107) Carbon Dioxide Level 27 mmol/L (21-32) Anion Gap 9 (6-14) Blood Urea Nitrogen 16 mg/dL (7-20) Creatinine 1.6 mg/dL (0.6-1.0) H Estimated GFR (Cockcroft-Gault) 31.3 BUN/Creatinine Ratio 10 (6-20) Glucose Level 195 mg/dL (70-99) H Lactic Acid Level 1.6 mmol/L (0.4-2.0) Calcium Level 9.0 mg/dL (8.5-10.1) Magnesium Level 1.4 mg/dL (1.8-2.4) L Total Bilirubin 0.3 mg/dL (0.2-1.0) Aspartate Amino Transferase (AST) 18 U/L (15-37) Alanine Aminotransferase (ALT) 15 U/L (14-59) Alkaline Phosphatase 126 U/L (46-116) H Creatine Kinase 47 U/L (26-192) Creatine Kinase MB (Mass) 0.8 ng/mL (0.0-3.6) Creatine Kinase MB Relative Index % (0-4) Troponin I Quantitative < 0.017 ng/mL (0.000-0.055) < 0.017 ng/mL (0.000-0.055) JC-Lfu-E-Type Natriuretic Peptide 700 pg/mL (0-449) H Total Protein 6.7 g/dL (6.4-8.2) Albumin 2.8 g/dL (3.4-5.0) L Albumin/Globulin Ratio 0.7 (1.0-1.7) L Lipase 27 U/L (73-393) L Procalcitonin < 0.10 ng/mL (0.00-0.10) Thyroid Stimulating Hormone (TSH) 0.749 uIU/mL (0.358-3.74) Influenza Type A Antigen Negative (NEGATIVE) Influenza Type B Antigen Negative (NEGATIVE) Urine Collection Type U cath Urine Color Rafia Urine Clarity Turbid Urine pH 5.5 (<5.0-8.0) Urine Specific [place] >=1.030 (1.000-1.030) Urine Protein 100 mg/dL (NEG-TRACE) Urine Glucose (UA) Negative mg/dL (NEG) Urine Ketones (Stick) Trace mg/dL (NEG) Urine Blood Large (NEG) Urine Nitrite Negative (NEG) Urine Bilirubin Small (NEG) Urine Urobilinogen Dipstick 0.2 mg/dL (0.2 mg/dL) Urine Leukocyte Esterase Large (NEG) Urine RBC 11-20 /HPF (0-2) Urine WBC Tntc /HPF (0-4) Urine Squamous Epithelial Cells Mod /LPF Urine Bacteria Moderate /HPF (0-FEW) Urine Mucus Slight /LPF Urine Opiates Screen Pos (NEG) Urine Methadone Screen Neg (NEG) Urine Barbiturates Neg (NEG) Urine Phencyclidine Screen Neg (NEG) Urine Amphetamine/Methamphetamine Neg (NEG) Urine Benzodiazepines Screen Neg (NEG) Urine Cocaine Screen Neg (NEG) Urine Cannabinoids Screen Neg (NEG) Urine Ethyl Alcohol Neg (NEG) Laboratory Tests 12/02/20 18:06 Laboratory Tests 12/02/20 18:06 Vital Signs: Vital Signs Date Time Temp Pulse Resp B/P (MAP) Pulse Ox O2 Delivery O2 Flow Rate FiO2 12/02/20 22:36 68 18 96 12/02/20 17:49 99.6 163/100 (121) Room Air 99.6 EKG: EK interpreted by Dr. Gastelum SR, HR 65 no STEMI patient shaking during EKG[] Radiology/Procedures: Radiology/Procedures: []PROCEDURE: KNEE LEFT 3V Examination: 3 views of the left knee and frontal view of the chest HISTORY: History of knee pain, chest pain COMPARISON: None available. FINDINGS: Severe joint space loss identified in the medial, lateral, patellofemoral compartments with calcification identified just medial to the medial compartment could be an osteophyte, meniscal ossicle or calcification meniscus is noted. Small enthesophyte identified at the attachment of the quadriceps tendon to the patella. The cardiomediastinal silhouette grossly appears unremarkable. The lungs are clear. IMPRESSION: 1. 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 Calcification identified just medial to the medial compartment could be an osteophyte, meniscal ossicle or calcification of meniscus. 2. No acute cardiopulmonary findings. Electronically signed by: Vance Ruth MD (12/02/2020 7:14 PM) [id number] DICTATED and SIGNED BY: VANCE RUTH MD DATE: 12/02/20 [id number] 0 PROCEDURE: CT HEAD WO CONTRAST CT HEAD INDICATION: Fall, headache COMPARISON: 11/16/2019. Exposure: One or more of the following individualized dose reduction techniques were utilized for this examination: 1. Automated exposure control 2. Adjustment of the mA and/or kV according to patient size 3. Use of iterative reconstruction technique TECHNIQUE: 5 mm contiguous axial images were obtained from the skull base to the vertex in both bone and soft tissue algorithm. FINDINGS: Mild bilateral periventricular white matter hypodensities likely chronic small vessel ischemic disease. No evidence of acute intracranial hemorrhage. No extra-axial fluid collections. No mass effect or midline shift. Ventricular size is appropriate. Basal cisterns are patent. No fractures identified.Parks-white differentiation is preserved.Globes and orbits are within normal limits. Mild opacification the bilateral mastoid air cells. IMPRESSION: No acute intracranial findings. Electronically signed by: Vance Ruth MD (12/02/2020 6:39 PM) [id number] DICTATED and SIGNED BY: VANCE RUTH MD DATE: 12/02/20 [id number] 0 Course & Med Decision Making: Course & Med Decision Making Pertinent Labs and Imaging studies reviewed. (See chart for details) This is a 75-year-old female patient presenting to the ED today with multiple complaints. Patient is complaining of left knee pain that began on after she fell. She is complaining of nausea vomiting and diarrhea for 1 week. She is complaining of posterior headache. Patient is also complaining of generalized weakness and inability to ambulate CT of the head is negative for any acute findings, chest x-ray is negative, left knee x-rays noted for DJD. CBC no acute findings, CMP with creatinine of 1.6, BUN is normal. Urine positive for UTI, started on Rocephin. Spoke to Dr. Randolph who accepted patient for admission She was tested for COVID-19 Mariah Disclaimer: Mariah Disclaimer: This electronic medical record was generated, in whole or in part, using a voice recognition dictation system. Departure Departure Impression: Primary Impression: Degenerative joint disease of knee Qualified Codes: M17.12 - Unilateral primary osteoarthritis, left knee Additional Impressions: Urinary tract infection Qualified Codes: N39.0 - Urinary tract infection, site not specified Person under investigation for COVID-19 Nausea vomiting and diarrhea Acute on chronic renal failure Qualified Codes: N17.9 - Acute kidney failure, unspecified; N18.9 - Chronic kidney disease, unspecified Disposition: 09 ADMITTED INPT THIS HOSP Condition: STABLE Referrals: RYAN ALY MD (PCP) CHRISTINA QUEZADA APRN Dec 02, 2020 23:23
[2020-12-02] MEDS ORDERED: ACETAMINOPHEN 325 MG TABLET. PO PRN (23:30)
[2020-12-02] MEDS ORDERED: MORPHINE SULFATE 4 MG/ML VIAL. IV PRN (23:30)
[2020-12-02] MEDS ORDERED: ONDANSETRON PF 4 MG/2 ML VIAL. IV PRN (23:30)
[2020-12-03] MEDS ORDERED: IV NORMAL SALINE 1000ML BAG 1,000 ML IV ONE
[2020-12-03] MEDS ORDERED: cefTRIAXone IV Push 1 GM VIAL. IVP ONE
[2020-12-03 03:00] VITALS: BP 148/60
[2020-12-03 07:56] VITALS: BP 139/44
[2020-12-03] MEDS ORDERED: FLU VACC QS 2020-21(6MOS+)/PF 0.5 ML SYRINGE. VAX IM ONE (09:00)
[2020-12-03] MEDS ORDERED: SENNOSIDES/DOCUSATE 8.6/50MG TABLET. PO PRN (09:30)
[2020-12-03] MEDS ORDERED: DOCUSATE SODIUM 100 MG CAPSULE. PO PRN (09:30)
[2020-12-03] MEDS ORDERED: INSULIN ASPART 100 UNIT SQ PRN (09:30)
[2020-12-03] MEDS ORDERED: diphenhydrAMINE HCL 25 MG CAPSULE PO PRN (09:30)
[2020-12-03] MEDS ORDERED: MAGNESIUM SULFATE 1GM 100 ML IV ONE ×2 (09:30→12:00)
[2020-12-03 09:34] LABS: BASO % 0 % (0-3); EOS # 0.1 x10^3/uL (0.0-0.7); EOS % 2 % (0-3); HEMATOCRIT 31.9 % (36.0-47.0); LYMPH # 1.9 x10^3/uL (1.0-4.8); LYMPH % 42 % (24-48); MEAN CORPUSCULAR HEMOGLOBIN 24 pg (25-35); MEAN CORPUSCULAR HGB CONC 31 g/dL (31-37); MEAN CORPUSCULAR VOLUME 77 fL (79-100); MONO # 0.3 x10^3/uL (0.0-1.1); MONO % 7 % (0-9); NEUT # 2.3 x10^3/uL (1.8-7.7); NEUT % 49 % (31-73); PLATELET COUNT 194 x10^3/uL (140-400); RED BLOOD COUNT 4.14 x10^6/uL (3.50-5.40); RED CELL DISTRIBUTION WIDTH 15.7 % (11.5-14.5); WHITE BLOOD COUNT 4.6 x10^3/uL (4.0-11.0)
[2020-12-03] MEDS ORDERED: DEXTROSE 50% 25 GM / 50ML DISP.SYRIN. IV PRN (09:45)
[2020-12-03] MEDS ORDERED: MAGNESIUM SULFATE 2GM 50 ML IV ONE (10:00)
[2020-12-03 10:09] LABS: ALBUMIN 2.6 g/dL (3.4-5.0); ALBUMIN/GLOBULIN RATIO 0.7 (1.0-1.7); CALCIUM 8.6 mg/dL (8.5-10.1); CREATININE 1.2 mg/dL (0.6-1.0); GFR 43.6; POTASSIUM 4.1 mmol/L (3.5-5.1); TOTAL BILIRUBIN 0.3 mg/dL (0.2-1.0); TOTAL PROTEIN 6.1 g/dL (6.4-8.2)
--- NOTE | 2020-12-03 10:40 | EKG ---
[facility] [address] [place] [address] Test Date: 2020-12-02 Test Time: 18:42:05 Pat Name: ROSAURA MERAZ Department: Room: Gender: F Miter Operator: : 1945 Requested By: CHRISTINA QUEZADA Order Number: [id number] Reading MD: Measurements Intervals [place] Rate: 65 P: DE: QRS: 24 QRSD: 80 T: 62 QT: 418 QTc: 440 Interpretive Statements ATRIAL FLUTTER QRS(T) CONTOUR ABNORMALITY CONSISTENT WITH ANTEROSEPTAL INFARCT AGE UNDETERMINED T ABNORMALITY IN HIGH LATERAL LEADS ABNORMAL ECG RI6.01 No previous ECG available for comparison
[2020-12-03] MEDS: LEVOTHYROXINE 100 MCG TABLET PO SCH (11:01)
[2020-12-03] MEDS: SPIRONOLACTONE 25 MG TABLET PO SCH (11:01)
[2020-12-03] MEDS: CARVEDILOL 12.5 MG TABLET. PO SCH ×2 (11:02→17:21)
[2020-12-03] MEDS: FLUoxetine HCL 20 MG CAPSULE PO SCH (11:02)
[2020-12-03] MEDS: ACETAMINOPHEN 500 MG TABLET PO PRN (11:17)
[2020-12-03 11:38] VITALS: BP 144/51
--- NOTE | 2020-12-03 11:45 | PDOC1 ---
History and Physical Date of Admission Date of Admission DATE: 12/03/20 TIME: 11:45 Identification/Chief Complaint Chief Complaint SEEN IN ER WITH INTRACTABLE KNEE PAIN, UNABLE TO AMBULATE 75 year old female with history of diabetes type 2, hypertension, high cholesterol, cardiac stents, who presents to the ED today with multiple complaints. reports 9 out of 10 left knee pain that began on Day after she fell. Patient denies any loss of consciousness. She is also complaining of mild posterior head pain that has been going on and off for 3 days. also complaining of nausea vomiting and diarrhea for 1 week. She is also complaining of generalized weakness that began today. Denies any fever. Denies any abdominal pain. Denies any chest pain or shortness of breath. WAS getting out of the vehicle and was unable to get up due to weakness she states she was unable to ambulate. Past Medical History Past Medical History Past Medical History Past Medical History Past Medical History: Diabetes-Type II, High Cholesterol, Hypertension, SD, Other Additional Past Medical Histor: HEART STENTS Past Surgical History: Appendectomy, Cholecystectomy, Tonsillectomy Additional Past Surgical Histo: CARDIAC STENTS Smoking Status: Former Smoker Alcohol Use: Rarely Drug Use: None fhx obesity Cardiovascular: HTN, Hyperlipidemia Endocrine: Diabetes, Hypothyroidism Past Surgical History Past Surgical History: Appendectomy, Cholecystectomy, Tonsillectomy Family History Family History: Diabetes, Hypertension Social History Smoke: No ALCOHOL: none Drugs: None Current Problem List Problem List Problems Medical Problems: (1) Acute on chronic renal failure Status: Acute (2) Nausea vomiting and diarrhea Status: Acute (3) Person under investigation for COVID-19 Status: Acute (4) Urinary tract infection Status: Acute Current Medications Current Medications Current Medications Morphine Sulfate (Morphine Sulfate) 4 mg PRN Q15MIN PRN IV/SQ PAIN GREATER THAN 3/10 Last administered on 12/02/20at 23:04; Start 12/02/20 at 18:15; Stop 12/03/20 at 18:14 Ondansetron HCl (Zofran) 4 mg PRN Q8HRS PRN IV NAUSEA/VOMITING; Start 12/02/20 at 23:30; Stop 12/03/20 at 23:29 Morphine Sulfate (Morphine Sulfate) 4 mg PRN Q2HR PRN IV PAIN; Start 12/02/20 at 23:30; Stop 12/03/20 at 23:29 Acetaminophen (Tylenol) 650 mg PRN Q4HRS PRN PO FEVER > 100.3'F; Start 12/02/20 at 23:30; Stop 12/03/20 at 23:29 Ceftriaxone Sodium (Rocephin) 1 gm 1X ONCE IVP Last administered on 12/03/20at 00:00; Start 12/03/20 at 00:00; Stop 12/03/20 at 00:01; Status DC Sodium Chloride 1,000 ml @ 75 mls/hr 1X ONCE IV Last administered on 12/03/20at 00:02; Start 12/03/20 at 00:00; Stop 12/03/20 at 13:19 Influenza Virus Vaccine Quadrival (Fluzone Quad Syringe) 0.5 ml ONCE ONCE VAX IM Last administered on 12/03/20at 11:04; Start 12/03/20 at 09:00; Stop 12/03/20 at 09:01; Status DC Acetaminophen (Tylenol) 500 mg PRN Q6HRS PRN PO PAIN Last administered on 12/03/20at 11:17; Start 12/03/20 at 09:30 Diphenhydramine HCl (Benadryl) 25 mg PRN QHS PRN PO INSOMNIA; Start 12/03/20 at 09:30 Docusate Sodium (Colace) 100 mg PRN DAILY PRN PO CONSTIPATION; Start 12/03/20 at 09:30 Fluoxetine HCl (PROzac) 20 mg DAILY PO Last administered on 12/03/20at 11:02; Start 12/03/20 at 10:00 Senna/Docusate Sodium (Senna Plus) 1 tab PRN DAILY PRN PO CONSTIPATION; Start 12/03/20 at 09:30 Spironolactone (Aldactone) 25 mg DAILY PO Last administered on 12/03/20at 11:01; Start 12/03/20 at 10:00 Carvedilol (Coreg) 12.5 mg BIDWMEALS PO Last administered on 12/03/20at 11:02; Start 12/03/20 at 10:00 Non-Formulary Medication (Insulin Aspart (Novolog Flexpen)) 100 unit TID PRN PRN SQ hyperglycemia; Start 12/03/20 at 09:30; Status UNV Insulin Glargine (Lantus Syringe) 20 unit QHS SQ ; Start 12/03/20 at 21:00 Levothyroxine Sodium (Synthroid) 200 mcg DAILY06 PO Last administered on 12/03/20at 11:01; Start 12/03/20 at 10:00 Magnesium Sulfate 50 ml @ 25 mls/hr 1X ONCE IV Last administered on 12/03/20at 11:02; Start 12/03/20 at 10:00; Stop 12/03/20 at 11:59 Magnesium Sulfate/ Dextrose 100 ml @ 100 mls/hr 1X ONCE IV ; Start 12/03/20 at 09:30; Stop 12/03/20 at 10:29; Status UNV Insulin Human Lispro (HumaLOG) 0-9 UNITS TIDWMEALS SQ ; Start 12/03/20 at 12:00 Dextrose (Dextrose 50%-Water Syringe) 12.5 gm PRN Q15MIN PRN IV SEE COMMENTS; Start 12/03/20 at 09:45 Magnesium Sulfate/ Dextrose 100 ml @ 100 mls/hr 1X ONCE IV ; Start 12/03/20 at 12:00; Stop 12/03/20 at 12:59 Active Scripts Active Novolog Flexpen (Insulin Aspart) 100 Unit/1 Ml Insuln.pen 100 Unit SQ TID PRN PRN Reported Levothyroxine Sodium 200 Mcg Tablet 2 Tab PO DAILY Fluoxetine Hcl 20 Mg Capsule 20 Mg PO DAILY 90 Days Lantus Solostar (Insulin Glargine,Hum.rec.anlog) 100 Unit/1 Ml Insuln.pen 20 Unit SQ QHS Senokot-S Tablet (Sennosides/Docusate Sodium) 1 Each Tablet 1 Each PO PRN DAILY PRN Benadryl (Diphenhydramine Hcl) 25 Mg Capsule 25 Mg PO PRN QHS PRN Acetaminophen 500 Mg Tablet 500 Mg PO PRN Q6HRS PRN Spironolactone 25 Mg Tablet 25 Mg PO DAILY Colace (Docusate Sodium) 100 Mg Capsule 100 Mg PO PRN DAILY PRN Coreg (Carvedilol) 25 Mg Tablet 12.5 Mg PO BIDWMEALS Nitrostat (Nitroglycerin) 0.4 Mg Tab.subl 0.4 Mg SL PRN Q5MIN PRN Hydrocodone-Apap 7.5-325 (Hydrocodone Bit/Acetaminophen) 1 Tab Tablet 1 Tab PO PRN TID PRN Allergies Allergies: Coded Allergies: hydrochlorothiazide (Verified Allergy, Intermediate, Swelling, 04/03/14) valsartan (Verified Allergy, Intermediate, Swelling, 04/03/14) I S O L A T I O N *CONTACT* (Verified Allergy, Unknown, 12/07/19) vre ROS Review of System Review of Systems: Review of Systems: Constitutional: Denies fever or chills. [] Eyes: Denies change in visual acuity. [] HENT: Denies nasal congestion or sore throat. [] Respiratory: Denies cough or shortness of breath. [] Cardiovascular: Denies chest pain or edema. [] GI: Reports nausea vomiting and diarrhea. Denies abdominal pain, bloody stools or diarrhea. [] : Denies dysuria. [] Musculoskeletal: Denies back pain reports left knee pain. Integument: Denies rash. [] Neurologic: Reports headache, denies focal weakness or sensory changes. [] Psychiatric: Denies depression or anxiety. [] 14 PT ROS OTHERWISE NEG General: YES: Fatigue Breast: No New/Changing Breast Lumps, No Nipple changes, No Nipple discharge, No Other Cardiovascular: No Chest Pain, No Palpitations, No Orthopnea, No Paroxysmal Noc. Dyspnea, No Edema, No Lt Headedness, No Other Musculoskeletal: Yes Gait Disturbance, Yes Joint Pain, Yes Joint Stiffness Neurological: Yes Gait Disturbance, Yes Impaired Coord/balance Physical Exam Physical Exam PATIENT: ROSAURA MERAZ ACCOUNT: [id number] : 1945 LOCATION: ER AGE: 75 SEX: F EXAM STATUS: REG ER ORD. PHYSICIAN: CHRISTINA QUEZADA APRN REASON: pain PROCEDURE: KNEE LEFT 3V Examination: 3 views of the left knee and frontal view of the chest HISTORY: History of knee pain, chest pain COMPARISON: None available. FINDINGS: Severe joint space loss identified in the medial, lateral, patellofemoral compar tments with calcification identified just medial to the medial compartment could be an osteophyte, meniscal ossicle or calcification meniscus is noted. Small enthesophyte identified at the attachment of the quadriceps tendon to the patella. The cardiomediastinal silhouette grossly appears unremarkable. The lungs are clear. IMPRESSION: 1. 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 Calcification identified just medial to the medial compartment could be an osteophyte, meniscal ossicle or calcification of meniscus. 2. No acute cardiopulmonary findings. Electronically signed by: Vance Ruth MD (12/02/2020 7:14 PM) [id number] DICTATED and SIGNED BY: VANCE RUTH MD DATE: 12/02/20 [id number] 0 General: mild distress HEENT: EOMI Rectal Exam: not examined PELVIC: Examination not indicated Extremities: No cyanosis Neuro: Normal speech, Cranial nerves 3-12 NL Psych/Mental Status: Mental status NL, Mood NL Vitals Vitals Vital Signs Date Time Temp Pulse Resp B/P (MAP) Pulse Ox O2 Delivery O2 Flow Rate FiO2 12/03/20 11:38 99.6 68 20 144/51 (82) 93 Room Air 99.6 Labs Labs Laboratory Tests Test 12/02/20 18:06 12/02/20 21:00 12/02/20 21:45 12/03/20 01:10 White Blood Count 5.7 x10^3/uL (4.0-11.0) Red Blood Count 4.35 x10^6/uL (3.50-5.40) Hemoglobin 10.7 g/dL (12.0-15.5) Hematocrit 33.6 % (36.0-47.0) Mean Corpuscular Volume 77 fL (79-100) Mean Corpuscular Hemoglobin 25 pg (25-35) Mean Corpuscular Hemoglobin Concent 32 g/dL (31-37) Red Cell Distribution Width 15.8 % (11.5-14.5) Platelet Count 234 x10^3/uL (140-400) Neutrophils (%) (Auto) 51 % (31-73) Lymphocytes (%) (Auto) 40 % (24-48) Monocytes (%) (Auto) 6 % (0-9) Eosinophils (%) (Auto) 2 % (0-3) Basophils (%) (Auto) 0 % (0-3) Neutrophils # (Auto) 3.0 x10^3/uL (1.8-7.7) Lymphocytes # (Auto) 2.3 x10^3/uL (1.0-4.8) Monocytes # (Auto) 0.4 x10^3/uL (0.0-1.1) Eosinophils # (Auto) 0.1 x10^3/uL (0.0-0.7) Basophils # (Auto) 0.0 x10^3/uL (0.0-0.2) Prothrombin Time 13.0 SEC (11.7-14.0) Prothromb Time International Ratio 1.0 (0.8-1.1) Activated Partial Thromboplast Time 32 SEC (24-38) Sodium Level 136 mmol/L (136-145) Potassium Level 4.5 mmol/L (3.5-5.1) Chloride Level 100 mmol/L (98-107) Carbon Dioxide Level 27 mmol/L (21-32) Anion Gap 9 (6-14) Blood Urea Nitrogen 16 mg/dL (7-20) Creatinine 1.6 mg/dL (0.6-1.0) Estimated GFR (Cockcroft-Gault) 31.3 BUN/Creatinine Ratio 10 (6-20) Glucose Level 195 mg/dL (70-99) Lactic Acid Level 1.6 mmol/L (0.4-2.0) Calcium Level 9.0 mg/dL (8.5-10.1) Magnesium Level 1.4 mg/dL (1.8-2.4) Total Bilirubin 0.3 mg/dL (0.2-1.0) Aspartate Amino Transf (AST/SGOT) 18 U/L (15-37) Alanine Aminotransferase (ALT/SGPT) 15 U/L (14-59) Alkaline Phosphatase 126 U/L (46-116) Creatine Kinase 47 U/L (26-192) Creatine Kinase MB (Mass) 0.8 ng/mL (0.0-3.6) Creatine Kinase MB Relative Index % (0-4) Troponin I Quantitative < 0.017 ng/mL (0.000-0.055) < 0.017 ng/mL (0.000-0.055) < 0.017 ng/mL (0.000-0.055) RH-Gja-I-Type Natriuretic Peptide 700 pg/mL (0-449) Total Protein 6.7 g/dL (6.4-8.2) Albumin 2.8 g/dL (3.4-5.0) Albumin/Globulin Ratio 0.7 (1.0-1.7) Lipase 27 U/L (73-393) Procalcitonin < 0.10 ng/mL (0.00-0.10) Thyroid Stimulating Hormone (TSH) 0.749 uIU/mL (0.358-3.74) Influenza Type A Antigen Negative (NEGATIVE) Influenza Type B Antigen Negative (NEGATIVE) Urine Collection Type U cath Urine Color Rafia Urine Clarity Turbid Urine pH 5.5 (<5.0-8.0) Urine Specific Oriska >=1.030 (1.000-1.030) Urine Protein 100 mg/dL (NEG-TRACE) Urine Glucose (UA) Negative mg/dL (NEG) Urine Ketones (Stick) Trace mg/dL (NEG) Urine Blood Large (NEG) Urine Nitrite Negative (NEG) Urine Bilirubin Small (NEG) Urine Urobilinogen Dipstick 0.2 mg/dL (0.2 mg/dL) Urine Leukocyte Esterase Large (NEG) Urine RBC 11-20 /HPF (0-2) Urine WBC Tntc /HPF (0-4) Urine Squamous Epithelial Cells Mod /LPF Urine Bacteria Moderate /HPF (0-FEW) Urine Mucus Slight /LPF Urine Opiates Screen Pos (NEG) Urine Methadone Screen Neg (NEG) Urine Barbiturates Neg (NEG) Urine Phencyclidine Screen Neg (NEG) Urine Amphetamine/Methamphetamine Neg (NEG) Urine Benzodiazepines Screen Neg (NEG) Urine Cocaine Screen Neg (NEG) Urine Cannabinoids Screen Neg (NEG) Urine Ethyl Alcohol Neg (NEG) Test 12/03/20 09:07 12/03/20 09:15 Glucose (Fingerstick) 170 mg/dL (70-99) White Blood Count 4.6 x10^3/uL (4.0-11.0) Red Blood Count 4.14 x10^6/uL (3.50-5.40) Hemoglobin 10.0 g/dL (12.0-15.5) Hematocrit 31.9 % (36.0-47.0) Mean Corpuscular Volume 77 fL (79-100) Mean Corpuscular Hemoglobin 24 pg (25-35) Mean Corpuscular Hemoglobin Concent 31 g/dL (31-37) Red Cell Distribution Width 15.7 % (11.5-14.5) Platelet Count 194 x10^3/uL (140-400) Neutrophils (%) (Auto) 49 % (31-73) Lymphocytes (%) (Auto) 42 % (24-48) Monocytes (%) (Auto) 7 % (0-9) Eosinophils (%) (Auto) 2 % (0-3) Basophils (%) (Auto) 0 % (0-3) Neutrophils # (Auto) 2.3 x10^3/uL (1.8-7.7) Lymphocytes # (Auto) 1.9 x10^3/uL (1.0-4.8) Monocytes # (Auto) 0.3 x10^3/uL (0.0-1.1) Eosinophils # (Auto) 0.1 x10^3/uL (0.0-0.7) Basophils # (Auto) 0.0 x10^3/uL (0.0-0.2) Sodium Level 138 mmol/L (136-145) Potassium Level 4.1 mmol/L (3.5-5.1) Chloride Level 103 mmol/L (98-107) Carbon Dioxide Level 26 mmol/L (21-32) Anion Gap 9 (6-14) Blood Urea Nitrogen 17 mg/dL (7-20) Creatinine 1.2 mg/dL (0.6-1.0) Estimated GFR (Cockcroft-Gault) 43.6 BUN/Creatinine Ratio 14 (6-20) Glucose Level 169 mg/dL (70-99) Calcium Level 8.6 mg/dL (8.5-10.1) Total Bilirubin 0.3 mg/dL (0.2-1.0) Aspartate Amino Transf (AST/SGOT) 17 U/L (15-37) Alanine Aminotransferase (ALT/SGPT) 13 U/L (14-59) Alkaline Phosphatase 118 U/L (46-116) Total Protein 6.1 g/dL (6.4-8.2) Albumin 2.6 g/dL (3.4-5.0) Albumin/Globulin Ratio 0.7 (1.0-1.7) Laboratory Tests Test 12/02/20 18:06 12/02/20 21:00 12/02/20 21:45 12/03/20 01:10 White Blood Count 5.7 x10^3/uL (4.0-11.0) Red Blood Count 4.35 x10^6/uL (3.50-5.40) Hemoglobin 10.7 g/dL (12.0-15.5) Hematocrit 33.6 % (36.0-47.0) Mean Corpuscular Volume 77 fL (79-100) Mean Corpuscular Hemoglobin 25 pg (25-35) Mean Corpuscular Hemoglobin Concent 32 g/dL (31-37) Red Cell Distribution Width 15.8 % (11.5-14.5) Platelet Count 234 x10^3/uL (140-400) Neutrophils (%) (Auto) 51 % (31-73) Lymphocytes (%) (Auto) 40 % (24-48) Monocytes (%) (Auto) 6 % (0-9) Eosinophils (%) (Auto) 2 % (0-3) Basophils (%) (Auto) 0 % (0-3) Neutrophils # (Auto) 3.0 x10^3/uL (1.8-7.7) Lymphocytes # (Auto) 2.3 x10^3/uL (1.0-4.8) Monocytes # (Auto) 0.4 x10^3/uL (0.0-1.1) Eosinophils # (Auto) 0.1 x10^3/uL (0.0-0.7) Basophils # (Auto) 0.0 x10^3/uL (0.0-0.2) Prothrombin Time 13.0 SEC (11.7-14.0) Prothromb Time International Ratio 1.0 (0.8-1.1) Activated Partial Thromboplast Time 32 SEC (24-38) Sodium Level 136 mmol/L (136-145) Potassium Level 4.5 mmol/L (3.5-5.1) Chloride Level 100 mmol/L (98-107) Carbon Dioxide Level 27 mmol/L (21-32) Anion Gap 9 (6-14) Blood Urea Nitrogen 16 mg/dL (7-20) Creatinine 1.6 mg/dL (0.6-1.0) Estimated GFR (Cockcroft-Gault) 31.3 BUN/Creatinine Ratio 10 (6-20) Glucose Level 195 mg/dL (70-99) Lactic Acid Level 1.6 mmol/L (0.4-2.0) Calcium Level 9.0 mg/dL (8.5-10.1) Magnesium Level 1.4 mg/dL (1.8-2.4) Total Bilirubin 0.3 mg/dL (0.2-1.0) Aspartate Amino Transf (AST/SGOT) 18 U/L (15-37) Alanine Aminotransferase (ALT/SGPT) 15 U/L (14-59) Alkaline Phosphatase 126 U/L (46-116) Creatine Kinase 47 U/L (26-192) Creatine Kinase MB (Mass) 0.8 ng/mL (0.0-3.6) Creatine Kinase MB Relative Index % (0-4) Troponin I Quantitative < 0.017 ng/mL (0.000-0.055) < 0.017 ng/mL (0.000-0.055) < 0.017 ng/mL (0.000-0.055) AI-Kvb-W-Type Natriuretic Peptide 700 pg/mL (0-449) Total Protein 6.7 g/dL (6.4-8.2) Albumin 2.8 g/dL (3.4-5.0) Albumin/Globulin Ratio 0.7 (1.0-1.7) Lipase 27 U/L (73-393) Procalcitonin < 0.10 ng/mL (0.00-0.10) Thyroid Stimulating Hormone (TSH) 0.749 uIU/mL (0.358-3.74) Influenza Type A Antigen Negative (NEGATIVE) Influenza Type B Antigen Negative (NEGATIVE) Urine Collection Type U cath Urine Color Rafia Urine Clarity Turbid Urine pH 5.5 (<5.0-8.0) Urine Specific [place]iska >=1.030 (1.000-1.030) Urine Protein 100 mg/dL (NEG-TRACE) Urine Glucose (UA) Negative mg/dL (NEG) Urine Ketones (Stick) Trace mg/dL (NEG) Urine Blood Large (NEG) Urine Nitrite Negative (NEG) Urine Bilirubin Small (NEG) Urine Urobilinogen Dipstick 0.2 mg/dL (0.2 mg/dL) Urine Leukocyte Esterase Large (NEG) Urine RBC 11-20 /HPF (0-2) Urine WBC Tntc /HPF (0-4) Urine Squamous Epithelial Cells Mod /LPF Urine Bacteria Moderate /HPF (0-FEW) Urine Mucus Slight /LPF Urine Opiates Screen Pos (NEG) Urine Methadone Screen Neg (NEG) Urine Barbiturates Neg (NEG) Urine Phencyclidine Screen Neg (NEG) Urine Amphetamine/Methamphetamine Neg (NEG) Urine Benzodiazepines Screen Neg (NEG) Urine Cocaine Screen Neg (NEG) Urine Cannabinoids Screen Neg (NEG) Urine Ethyl Alcohol Neg (NEG) Test 12/03/20 09:07 12/03/20 09:15 Glucose (Fingerstick) 170 mg/dL (70-99) White Blood Count 4.6 x10^3/uL (4.0-11.0) Red Blood Count 4.14 x10^6/uL (3.50-5.40) Hemoglobin 10.0 g/dL (12.0-15.5) Hematocrit 31.9 % (36.0-47.0) Mean Corpuscular Volume 77 fL (79-100) Mean Corpuscular Hemoglobin 24 pg (25-35) Mean Corpuscular Hemoglobin Concent 31 g/dL (31-37) Red Cell Distribution Width 15.7 % (11.5-14.5) Platelet Count 194 x10^3/uL (140-400) Neutrophils (%) (Auto) 49 % (31-73) Lymphocytes (%) (Auto) 42 % (24-48) Monocytes (%) (Auto) 7 % (0-9) Eosinophils (%) (Auto) 2 % (0-3) Basophils (%) (Auto) 0 % (0-3) Neutrophils # (Auto) 2.3 x10^3/uL (1.8-7.7) Lymphocytes # (Auto) 1.9 x10^3/uL (1.0-4.8) Monocytes # (Auto) 0.3 x10^3/uL (0.0-1.1) Eosinophils # (Auto) 0.1 x10^3/uL (0.0-0.7) Basophils # (Auto) 0.0 x10^3/uL (0.0-0.2) Sodium Level 138 mmol/L (136-145) Potassium Level 4.1 mmol/L (3.5-5.1) Chloride Level 103 mmol/L (98-107) Carbon Dioxide Level 26 mmol/L (21-32) Anion Gap 9 (6-14) Blood Urea Nitrogen 17 mg/dL (7-20) Creatinine 1.2 mg/dL (0.6-1.0) Estimated GFR (Cockcroft-Gault) 43.6 BUN/Creatinine Ratio 14 (6-20) Glucose Level 169 mg/dL (70-99) Calcium Level 8.6 mg/dL (8.5-10.1) Total Bilirubin 0.3 mg/dL (0.2-1.0) Aspartate Amino Transf (AST/SGOT) 17 U/L (15-37) Alanine Aminotransferase (ALT/SGPT) 13 U/L (14-59) Alkaline Phosphatase 118 U/L (46-116) Total Protein 6.1 g/dL (6.4-8.2) Albumin 2.6 g/dL (3.4-5.0) Albumin/Globulin Ratio 0.7 (1.0-1.7) Images Images CT HEAD INDICATION: Fall, headache COMPARISON: 11/16/2019. Exposure: One or more of the following individualized dose reduction techniques were utilized for this examination: 1. Automated exposure control 2. Adjustment of the mA and/or kV according to patient size 3. Use of iterative reconstruction technique TECHNIQUE: 5 mm contiguous axial images were obtained from the skull base to the vertex in both bone and soft tissue algorithm. FINDINGS: Mild bilateral periventricular white matter hypodensities likely chronic small vessel ischemic disease. No evidence of acute intracranial hemorrhage. No extra-axial fluid collections. No mass effect or midline shift. Ventricular size is appropriate. Basal cisterns are patent. No fractures identified.Parks-white differentiation is preserved.Globes and orbits are within normal limits. Mild opacification the bilateral mastoid air cells. IMPRESSION: No acute intracranial findings. Electronically signed by: Vance Ruth MD (12/02/2020 6:39 PM) [id number] DICTATED and SIGNED BY: VANCE RUTH MD VTE Prophylaxis Ordered VTE Prophylaxis Devices: Contraindicated VTE Pharmacological Prophylaxi: Yes Assessment/Plan Assessment/Plan IMPRESSION: 1. ACUTE ,SEVERE, intractable knee pain , with gait instability, high fall risk 2. . 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 Calcification identified just medial to the medial compartment could be an osteophyte, meniscal ossicle or calcification of meniscus. 3. MORBID OBESITY 4. MICROCYTIC ANEMIA 5. FALL, RECENT 11-15-20 6. UTI 7. Generalized weakness 8. hypomagnesemia plan admit ortho consult PT/OT PAIN CONTROL IV ROCEPHIN 1 GM Q 24 HRS iv mg 3 gm today D/W RN Justifications for Admission Other Justification JAIRO CHRISTENSEN MD Dec 03, 2020 11:45
[2020-12-03] MEDS: INSULIN LISPRO 300 UNITS/3 ML VIAL. SQ SCH ×2 (12:15→17:22)
--- NOTE | 2020-12-03 13:11 | PDOC2 ---
CONSULT Date of Consult Date of Consult DATE: 12/03/20 TIME: 13:11 Reason for Consult Reason for Consult: Left knee pain, inability to ambulate Identification/Chief Complaint Chief Complaint Left knee pain, weakness, inability to ambulate Source Source: Caregiver, Chart review History of Present Illness Reason for Visit: 75-year-old woman admitted with possible COVID-19 infection, she is currently under investigation so I visited with her nurse and got history from nurse and the chart for now. She was admitted partly due to INTRACTABLE KNEE PAIN, UNABLE TO AMBULATE. She has a history of diabetes type 2, hypertension, high cholesterol, cardiac stents. She reports 9 out of 10 left knee pain that began on Day after she fell. Patient denies any loss of consciousness. She is also complaining of mild posterior head pain that has been going on and off for 3 days. She also complaining of nausea vomiting and diarrhea for 1 week. She is also complaining of generalized weakness that began today. Denies any fever. Denies any abdominal pain. Denies any chest pain or shortness of breath. She was getting out of the vehicle and was unable to get up due to weakness she states she was unable to ambulate. Past Medical History Cardiovascular: HTN, Hyperlipidemia Endocrine: Diabetes, Hypothyroidism Past Surgical History Past Surgical History: Appendectomy, Cholecystectomy, Tonsillectomy Family History Family History: Diabetes, Hypertension Social History ALCOHOL: none Drugs: None Current Problem List Problem List Problems Medical Problems: (1) Acute on chronic renal failure Status: Acute (2) Nausea vomiting and diarrhea Status: Acute (3) Person under investigation for COVID-19 Status: Acute (4) Urinary tract infection Status: Acute Current Medications Current Medications Current Medications Morphine Sulfate (Morphine Sulfate) 4 mg PRN Q15MIN PRN IV/SQ PAIN GREATER THAN 3/10 Last administered on 12/02/20at 23:04; Start 12/02/20 at 18:15; Stop 12/03/20 at 18:14 Ondansetron HCl (Zofran) 4 mg PRN Q8HRS PRN IV NAUSEA/VOMITING; Start 12/02/20 at 23:30; Stop 12/03/20 at 23:29 Morphine Sulfate (Morphine Sulfate) 4 mg PRN Q2HR PRN IV PAIN; Start 12/02/20 at 23:30; Stop 12/03/20 at 23:29 Acetaminophen (Tylenol) 650 mg PRN Q4HRS PRN PO FEVER > 100.3'F; Start 12/02/20 at 23:30; Stop 12/03/20 at 23:29 Ceftriaxone Sodium (Rocephin) 1 gm 1X ONCE IVP Last administered on 12/03/20at 00:00; Start 12/03/20 at 00:00; Stop 12/03/20 at 00:01; Status DC Sodium Chloride 1,000 ml @ 75 mls/hr 1X ONCE IV Last administered on 12/03/20at 00:02; Start 12/03/20 at 00:00; Stop 12/03/20 at 13:19 Influenza Virus Vaccine Quadrival (Fluzone Quad Syringe) 0.5 ml ONCE ONCE VAX IM Last administered on 12/03/20at 11:04; Start 12/03/20 at 09:00; Stop 12/03/20 at 09:01; Status DC Acetaminophen (Tylenol) 500 mg PRN Q6HRS PRN PO PAIN Last administered on 12/03/20at 11:17; Start 12/03/20 at 09:30 Diphenhydramine HCl (Benadryl) 25 mg PRN QHS PRN PO INSOMNIA; Start 12/03/20 at 09:30 Docusate Sodium (Colace) 100 mg PRN DAILY PRN PO CONSTIPATION; Start 12/03/20 at 09:30 Fluoxetine HCl (PROzac) 20 mg DAILY PO Last administered on 12/03/20at 11:02; Start 12/03/20 at 10:00 Senna/Docusate Sodium (Senna Plus) 1 tab PRN DAILY PRN PO CONSTIPATION; Start 12/03/20 at 09:30 Spironolactone (Aldactone) 25 mg DAILY PO Last administered on 12/03/20at 11:01; Start 12/03/20 at 10:00 Carvedilol (Coreg) 12.5 mg BIDWMEALS PO Last administered on 12/03/20at 11:02; Start 12/03/20 at 10:00 Non-Formulary Medication (Insulin Aspart (Novolog Flexpen)) 100 unit TID PRN PRN SQ hyperglycemia; Start 12/03/20 at 09:30; Status UNV Insulin Glargine (Lantus Syringe) 20 unit QHS SQ ; Start 12/03/20 at 21:00 Levothyroxine Sodium (Synthroid) 200 mcg DAILY06 PO Last administered on 12/03/20at 11:01; Start 12/03/20 at 10:00 Magnesium Sulfate 50 ml @ 25 mls/hr 1X ONCE IV Last administered on 12/03/20at 11:02; Start 12/03/20 at 10:00; Stop 12/03/20 at 11:59; Status DC Magnesium Sulfate/ Dextrose 100 ml @ 100 mls/hr 1X ONCE IV ; Start 12/03/20 at 09:30; Stop 12/03/20 at 10:29; Status UNV Insulin Human Lispro (HumaLOG) 0-9 UNITS TIDWMEALS SQ Last administered on 12/03/20at 12:15; Start 12/03/20 at 12:00 Dextrose (Dextrose 50%-Water Syringe) 12.5 gm PRN Q15MIN PRN IV SEE COMMENTS; Start 12/03/20 at 09:45 Magnesium Sulfate/ Dextrose 100 ml @ 100 mls/hr 1X ONCE IV Last administered on 12/03/20at 12:53; Start 12/03/20 at 12:00; Stop 12/03/20 at 12:59; Status DC Active Scripts Active Novolog Flexpen (Insulin Aspart) 100 Unit/1 Ml Insuln.pen 100 Unit SQ TID PRN PRN Reported Levothyroxine Sodium 200 Mcg Tablet 2 Tab PO DAILY Fluoxetine Hcl 20 Mg Capsule 20 Mg PO DAILY 90 Days Lantus Solostar (Insulin Glargine,Hum.rec.anlog) 100 Unit/1 Ml Insuln.pen 20 Unit SQ QHS Senokot-S Tablet (Sennosides/Docusate Sodium) 1 Each Tablet 1 Each PO PRN DAILY PRN Benadryl (Diphenhydramine Hcl) 25 Mg Capsule 25 Mg PO PRN QHS PRN Acetaminophen 500 Mg Tablet 500 Mg PO PRN Q6HRS PRN Spironolactone 25 Mg Tablet 25 Mg PO DAILY Colace (Docusate Sodium) 100 Mg Capsule 100 Mg PO PRN DAILY PRN Coreg (Carvedilol) 25 Mg Tablet 12.5 Mg PO BIDWMEALS Nitrostat (Nitroglycerin) 0.4 Mg Tab.subl 0.4 Mg SL PRN Q5MIN PRN Hydrocodone-Apap 7.5-325 (Hydrocodone Bit/Acetaminophen) 1 Tab Tablet 1 Tab PO PRN TID PRN Allergies Allergies: Coded Allergies: hydrochlorothiazide (Verified Allergy, Intermediate, Swelling, 04/03/14) valsartan (Verified Allergy, Intermediate, Swelling, 04/03/14) I S O L A T I O N *CONTACT* (Verified Allergy, Unknown, 12/07/19) vre ROS Review of System Constitutional: Denies fever or chills. Eyes: Denies change in visual acuity. HENT: Denies nasal congestion or sore throat. Respiratory: Denies cough or shortness of breath. Cardiovascular: Denies chest pain or edema. GI: Reports nausea vomiting and diarrhea. Denies abdominal pain, bloody stools or diarrhea. : Denies dysuria. Musculoskeletal: Denies back pain reports left knee pain. Integument: Denies rash. Neurologic: Reports headache, denies focal weakness or sensory changes. Psychiatric: Denies depression or anxiety. 14 PT ROS OTHERWISE NEG General: YES: Fatigue Breast: No New/Changing Breast Lumps, No Nipple changes, No Nipple discharge, No Other Cardiovascular: No Chest Pain, No Palpitations, No Orthopnea, No Paroxysmal Noc. Dyspnea, No Edema, No Lt Headedness, No Other Musculoskeletal: Yes Gait Disturbance, Yes Joint Pain, Yes Joint Stiffness Neurological: Yes Gait Disturbance, Yes Impaired Coord/balance Physical Exam General: Alert, Cooperative HEENT: Atraumatic Lungs: Normal air movement Heart: Regular rate Abdomen: Soft Extremities: Other (The LEFT knee shows varus alignment. No masses. No detectable effusion. Tenderness on the joint lines. Range of motion is 5-115 degrees. There is crepitus with range of motion, and pain at the extremes of motion. The knee is stable to varus and valgus stress without subluxation or laxity. Muscle strength is slightly weak for the quadriceps 4+/5 which may be due to pain or avoidance, and does not seem neurogenic, and the muscle tone and bulk is slightly decreased. The hamstring strength is 5/5. The skin is normal with no scars, rashes, lesions or ulcers. Light touch sensation is intact. No edema and no varicosities. Dorsalis pedis pulse is intact and capillary refill is normal.) Neuro: Normal speech Psych/Mental Status: Mood NL Vitals VITALS Vital Signs Date Time Temp Pulse Resp B/P (MAP) Pulse Ox O2 Delivery O2 Flow Rate FiO2 12/03/20 11:38 99.6 68 20 144/51 (82) 93 Room Air 99.6 Labs Labs Laboratory Tests Test 12/02/20 18:06 12/02/20 21:00 12/02/20 21:45 12/03/20 01:10 White Blood Count 5.7 x10^3/uL (4.0-11.0) Red Blood Count 4.35 x10^6/uL (3.50-5.40) Hemoglobin 10.7 g/dL (12.0-15.5) Hematocrit 33.6 % (36.0-47.0) Mean Corpuscular Volume 77 fL (79-100) Mean Corpuscular Hemoglobin 25 pg (25-35) Mean Corpuscular Hemoglobin Concent 32 g/dL (31-37) Red Cell Distribution Width 15.8 % (11.5-14.5) Platelet Count 234 x10^3/uL (140-400) Neutrophils (%) (Auto) 51 % (31-73) Lymphocytes (%) (Auto) 40 % (24-48) Monocytes (%) (Auto) 6 % (0-9) Eosinophils (%) (Auto) 2 % (0-3) Basophils (%) (Auto) 0 % (0-3) Neutrophils # (Auto) 3.0 x10^3/uL (1.8-7.7) Lymphocytes # (Auto) 2.3 x10^3/uL (1.0-4.8) Monocytes # (Auto) 0.4 x10^3/uL (0.0-1.1) Eosinophils # (Auto) 0.1 x10^3/uL (0.0-0.7) Basophils # (Auto) 0.0 x10^3/uL (0.0-0.2) Prothrombin Time 13.0 SEC (11.7-14.0) Prothromb Time International Ratio 1.0 (0.8-1.1) Activated Partial Thromboplast Time 32 SEC (24-38) Sodium Level 136 mmol/L (136-145) Potassium Level 4.5 mmol/L (3.5-5.1) Chloride Level 100 mmol/L (98-107) Carbon Dioxide Level 27 mmol/L (21-32) Anion Gap 9 (6-14) Blood Urea Nitrogen 16 mg/dL (7-20) Creatinine 1.6 mg/dL (0.6-1.0) Estimated GFR (Cockcroft-Gault) 31.3 BUN/Creatinine Ratio 10 (6-20) Glucose Level 195 mg/dL (70-99) Lactic Acid Level 1.6 mmol/L (0.4-2.0) Calcium Level 9.0 mg/dL (8.5-10.1) Magnesium Level 1.4 mg/dL (1.8-2.4) Total Bilirubin 0.3 mg/dL (0.2-1.0) Aspartate Amino Transf (AST/SGOT) 18 U/L (15-37) Alanine Aminotransferase (ALT/SGPT) 15 U/L (14-59) Alkaline Phosphatase 126 U/L (46-116) Creatine Kinase 47 U/L (26-192) Creatine Kinase MB (Mass) 0.8 ng/mL (0.0-3.6) Creatine Kinase MB Relative Index % (0-4) Troponin I Quantitative < 0.017 ng/mL (0.000-0.055) < 0.017 ng/mL (0.000-0.055) < 0.017 ng/mL (0.000-0.055) MN-Kke-E-Type Natriuretic Peptide 700 pg/mL (0-449) Total Protein 6.7 g/dL (6.4-8.2) Albumin 2.8 g/dL (3.4-5.0) Albumin/Globulin Ratio 0.7 (1.0-1.7) Lipase 27 U/L (73-393) Procalcitonin < 0.10 ng/mL (0.00-0.10) Thyroid Stimulating Hormone (TSH) 0.749 uIU/mL (0.358-3.74) Influenza Type A Antigen Negative (NEGATIVE) Influenza Type B Antigen Negative (NEGATIVE) Urine Collection Type U cath Urine Color Rafia Urine Clarity Turbid Urine pH 5.5 (<5.0-8.0) Urine Specific [place] >=1.030 (1.000-1.030) Urine Protein 100 mg/dL (NEG-TRACE) Urine Glucose (UA) Negative mg/dL (NEG) Urine Ketones (Stick) Trace mg/dL (NEG) Urine Blood Large (NEG) Urine Nitrite Negative (NEG) Urine Bilirubin Small (NEG) Urine Urobilinogen Dipstick 0.2 mg/dL (0.2 mg/dL) Urine Leukocyte Esterase Large (NEG) Urine RBC 11-20 /HPF (0-2) Urine WBC Tntc /HPF (0-4) Urine Squamous Epithelial Cells Mod /LPF Urine Bacteria Moderate /HPF (0-FEW) Urine Mucus Slight /LPF Urine Opiates Screen Pos (NEG) Urine Methadone Screen Neg (NEG) Urine Barbiturates Neg (NEG) Urine Phencyclidine Screen Neg (NEG) Urine Amphetamine/Methamphetamine Neg (NEG) Urine Benzodiazepines Screen Neg (NEG) Urine Cocaine Screen Neg (NEG) Urine Cannabinoids Screen Neg (NEG) Urine Ethyl Alcohol Neg (NEG) Test 12/03/20 09:07 12/03/20 09:15 12/03/20 11:22 Glucose (Fingerstick) 170 mg/dL (70-99) 232 mg/dL (70-99) White Blood Count 4.6 x10^3/uL (4.0-11.0) Red Blood Count 4.14 x10^6/uL (3.50-5.40) Hemoglobin 10.0 g/dL (12.0-15.5) Hematocrit 31.9 % (36.0-47.0) Mean Corpuscular Volume 77 fL (79-100) Mean Corpuscular Hemoglobin 24 pg (25-35) Mean Corpuscular Hemoglobin Concent 31 g/dL (31-37) Red Cell Distribution Width 15.7 % (11.5-14.5) Platelet Count 194 x10^3/uL (140-400) Neutrophils (%) (Auto) 49 % (31-73) Lymphocytes (%) (Auto) 42 % (24-48) Monocytes (%) (Auto) 7 % (0-9) Eosinophils (%) (Auto) 2 % (0-3) Basophils (%) (Auto) 0 % (0-3) Neutrophils # (Auto) 2.3 x10^3/uL (1.8-7.7) Lymphocytes # (Auto) 1.9 x10^3/uL (1.0-4.8) Monocytes # (Auto) 0.3 x10^3/uL (0.0-1.1) Eosinophils # (Auto) 0.1 x10^3/uL (0.0-0.7) Basophils # (Auto) 0.0 x10^3/uL (0.0-0.2) Sodium Level 138 mmol/L (136-145) Potassium Level 4.1 mmol/L (3.5-5.1) Chloride Level 103 mmol/L (98-107) Carbon Dioxide Level 26 mmol/L (21-32) Anion Gap 9 (6-14) Blood Urea Nitrogen 17 mg/dL (7-20) Creatinine 1.2 mg/dL (0.6-1.0) Estimated GFR (Cockcroft-Gault) 43.6 BUN/Creatinine Ratio 14 (6-20) Glucose Level 169 mg/dL (70-99) Calcium Level 8.6 mg/dL (8.5-10.1) Total Bilirubin 0.3 mg/dL (0.2-1.0) Aspartate Amino Transf (AST/SGOT) 17 U/L (15-37) Alanine Aminotransferase (ALT/SGPT) 13 U/L (14-59) Alkaline Phosphatase 118 U/L (46-116) Total Protein 6.1 g/dL (6.4-8.2) Albumin 2.6 g/dL (3.4-5.0) Albumin/Globulin Ratio 0.7 (1.0-1.7) Laboratory Tests Test 12/02/20 18:06 12/02/20 21:00 12/02/20 21:45 12/03/20 01:10 White Blood Count 5.7 x10^3/uL (4.0-11.0) Red Blood Count 4.35 x10^6/uL (3.50-5.40) Hemoglobin 10.7 g/dL (12.0-15.5) Hematocrit 33.6 % (36.0-47.0) Mean Corpuscular Volume 77 fL (79-100) Mean Corpuscular Hemoglobin 25 pg (25-35) Mean Corpuscular Hemoglobin Concent 32 g/dL (31-37) Red Cell Distribution Width 15.8 % (11.5-14.5) Platelet Count 234 x10^3/uL (140-400) Neutrophils (%) (Auto) 51 % (31-73) Lymphocytes (%) (Auto) 40 % (24-48) Monocytes (%) (Auto) 6 % (0-9) Eosinophils (%) (Auto) 2 % (0-3) Basophils (%) (Auto) 0 % (0-3) Neutrophils # (Auto) 3.0 x10^3/uL (1.8-7.7) Lymphocytes # (Auto) 2.3 x10^3/uL (1.0-4.8) Monocytes # (Auto) 0.4 x10^3/uL (0.0-1.1) Eosinophils # (Auto) 0.1 x10^3/uL (0.0-0.7) Basophils # (Auto) 0.0 x10^3/uL (0.0-0.2) Prothrombin Time 13.0 SEC (11.7-14.0) Prothromb Time International Ratio 1.0 (0.8-1.1) Activated Partial Thromboplast Time 32 SEC (24-38) Sodium Level 136 mmol/L (136-145) Potassium Level 4.5 mmol/L (3.5-5.1) Chloride Level 100 mmol/L (98-107) Carbon Dioxide Level 27 mmol/L (21-32) Anion Gap 9 (6-14) Blood Urea Nitrogen 16 mg/dL (7-20) Creatinine 1.6 mg/dL (0.6-1.0) Estimated GFR (Cockcroft-Gault) 31.3 BUN/Creatinine Ratio 10 (6-20) Glucose Level 195 mg/dL (70-99) Lactic Acid Level 1.6 mmol/L (0.4-2.0) Calcium Level 9.0 mg/dL (8.5-10.1) Magnesium Level 1.4 mg/dL (1.8-2.4) Total Bilirubin 0.3 mg/dL (0.2-1.0) Aspartate Amino Transf (AST/SGOT) 18 U/L (15-37) Alanine Aminotransferase (ALT/SGPT) 15 U/L (14-59) Alkaline Phosphatase 126 U/L (46-116) Creatine Kinase 47 U/L (26-192) Creatine Kinase MB (Mass) 0.8 ng/mL (0.0-3.6) Creatine Kinase MB Relative Index % (0-4) Troponin I Quantitative < 0.017 ng/mL (0.000-0.055) < 0.017 ng/mL (0.000-0.055) < 0.017 ng/mL (0.000-0.055) XY-Owt-F-Type Natriuretic Peptide 700 pg/mL (0-449) Total Protein 6.7 g/dL (6.4-8.2) Albumin 2.8 g/dL (3.4-5.0) Albumin/Globulin Ratio 0.7 (1.0-1.7) Lipase 27 U/L (73-393) Procalcitonin < 0.10 ng/mL (0.00-0.10) Thyroid Stimulating Hormone (TSH) 0.749 uIU/mL (0.358-3.74) Influenza Type A Antigen Negative (NEGATIVE) Influenza Type B Antigen Negative (NEGATIVE) Urine Collection Type U cath Urine Color Rafia Urine Clarity Turbid Urine pH 5.5 (<5.0-8.0) Urine Specific [place] >=1.030 (1.000-1.030) Urine Protein 100 mg/dL (NEG-TRACE) Urine Glucose (UA) Negative mg/dL (NEG) Urine Ketones (Stick) Trace mg/dL (NEG) Urine Blood Large (NEG) Urine Nitrite Negative (NEG) Urine Bilirubin Small (NEG) Urine Urobilinogen Dipstick 0.2 mg/dL (0.2 mg/dL) Urine Leukocyte Esterase Large (NEG) Urine RBC 11-20 /HPF (0-2) Urine WBC Tntc /HPF (0-4) Urine Squamous Epithelial Cells Mod /LPF Urine Bacteria Moderate /HPF (0-FEW) Urine Mucus Slight /LPF Urine Opiates Screen Pos (NEG) Urine Methadone Screen Neg (NEG) Urine Barbiturates Neg (NEG) Urine Phencyclidine Screen Neg (NEG) Urine Amphetamine/Methamphetamine Neg (NEG) Urine Benzodiazepines Screen Neg (NEG) Urine Cocaine Screen Neg (NEG) Urine Cannabinoids Screen Neg (NEG) Urine Ethyl Alcohol Neg (NEG) Test 12/03/20 09:07 12/03/20 09:15 12/03/20 11:22 Glucose (Fingerstick) 170 mg/dL (70-99) 232 mg/dL (70-99) White Blood Count 4.6 x10^3/uL (4.0-11.0) Red Blood Count 4.14 x10^6/uL (3.50-5.40) Hemoglobin 10.0 g/dL (12.0-15.5) Hematocrit 31.9 % (36.0-47.0) Mean Corpuscular Volume 77 fL (79-100) Mean Corpuscular Hemoglobin 24 pg (25-35) Mean Corpuscular Hemoglobin Concent 31 g/dL (31-37) Red Cell Distribution Width 15.7 % (11.5-14.5) Platelet Count 194 x10^3/uL (140-400) Neutrophils (%) (Auto) 49 % (31-73) Lymphocytes (%) (Auto) 42 % (24-48) Monocytes (%) (Auto) 7 % (0-9) Eosinophils (%) (Auto) 2 % (0-3) Basophils (%) (Auto) 0 % (0-3) Neutrophils # (Auto) 2.3 x10^3/uL (1.8-7.7) Lymphocytes # (Auto) 1.9 x10^3/uL (1.0-4.8) Monocytes # (Auto) 0.3 x10^3/uL (0.0-1.1) Eosinophils # (Auto) 0.1 x10^3/uL (0.0-0.7) Basophils # (Auto) 0.0 x10^3/uL (0.0-0.2) Sodium Level 138 mmol/L (136-145) Potassium Level 4.1 mmol/L (3.5-5.1) Chloride Level 103 mmol/L (98-107) Carbon Dioxide Level 26 mmol/L (21-32) Anion Gap 9 (6-14) Blood Urea Nitrogen 17 mg/dL (7-20) Creatinine 1.2 mg/dL (0.6-1.0) Estimated GFR (Cockcroft-Gault) 43.6 BUN/Creatinine Ratio 14 (6-20) Glucose Level 169 mg/dL (70-99) Calcium Level 8.6 mg/dL (8.5-10.1) Total Bilirubin 0.3 mg/dL (0.2-1.0) Aspartate Amino Transf (AST/SGOT) 17 U/L (15-37) Alanine Aminotransferase (ALT/SGPT) 13 U/L (14-59) Alkaline Phosphatase 118 U/L (46-116) Total Protein 6.1 g/dL (6.4-8.2) Albumin 2.6 g/dL (3.4-5.0) Albumin/Globulin Ratio 0.7 (1.0-1.7) Images Images Report reviewed and images independently reviewed. Severe left knee osteoarthritis. PATIENT: ROSAURA MERAZ ACCOUNT: [id number] : 1945 LOCATION: ER AGE: 75 SEX: F EXAM STATUS: REG ER ORD. PHYSICIAN: CHRISTINA QUEZADA APRN REASON: pain PROCEDURE: KNEE LEFT 3V Examination: 3 views of the left knee and frontal view of the chest HISTORY: History of knee pain, chest pain COMPARISON: None available. FINDINGS: Severe joint space loss identified in the medial, lateral, patellofemoral compartments with calcification identified just medial to the medial compartment could be an osteophyte, meniscal ossicle or calcification meniscus is noted. Small enthesophyte identified at the attachment of the quadriceps tendon to the patella. The cardiomediastinal silhouette grossly appears unremarkable. The lungs are clear. IMPRESSION: 1. 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 Calcification identified just medial to the medial compartment could be an osteophyte, meniscal ossicle or calcification of meniscus. 2. No acute cardiopulmonary findings. Electronically signed by: Vance Ruth MD (12/02/2020 7:14 PM) [id number] DICTATED and SIGNED BY: VANCE RUTH MD DATE: 12/02/20 [id number] Assessment/Plan Assessment/Plan She has severe osteoarthritis radiographically, and reportedly severe knee pain. She likely has an osteoarthritis flare. Possible fractured patellar entheso phyte, and there is calcification around the medial meniscus. Unclear whether she has COVID-19 or not at this time. Due to the current comorbidities surgery would be contraindicated. A cortisone injection would likely help her knee symptoms, and the low-grade systemic effects of a steroid injection will be beneficial if she happens to be COVID-19 positive. I will plan a cortisone injection. 2020-12-07: The patient is COVID-19 positive. I recommended a cortisone injection and the patient agrees. There can be some systemic effect from steroids but this might be of benefit in a COVID-19 positive patient. I used an N95 mask, and full gown, glove, and eye protection. Verbal consent was obtained. The skin was cleansed with isopropyl alcohol, and then prepared in sterile fashion with a Chlorhexidine swab. Topical ethyl chloride was used for skin anesthesia. I injected the left knee joint with 80 mg of Depo-Medrol and 1 cc of 1% lidocaine, under sterile technique. The patient tolerated the p rocedure well. A Band-Aid was placed CRISTELA ANNE MD Dec 03, 2020 13:11
[2020-12-03 15:17] VITALS: BP 106/31
--- NOTE | 2020-12-03 16:53 | NUR ---
SW following for discharge planning. SW spoke with RN and reviewed chart. SW consulted per pt report of needing assistance in the home. Pt currently on room air, cardiac diet, IV Rocephin, COVID pending. PT recommendation is SNU. SW attempted to call into pt's room x2 to see about a referral to SN. SW awaiting results of COVID test for possible referrals for placement. SW following.
[2020-12-03 19:00] VITALS: BP 107/44
[2020-12-03] MEDS ORDERED: LIDOCAINE 1% PF 2 ML VIAL. INJ ONE (19:00)
[2020-12-03] MEDS ORDERED: methylPREDNISolone ACETATE 80 MG/ML VIAL. IM ONE (19:00)
[2020-12-03] MEDS: cefTRIAXone IV Push 1 GM VIAL. IVP SCH (20:54)
[2020-12-03] MEDS: NYSTATIN TOPICAL POWDER 15GM BOTTLE. TP SCH (20:54)
[2020-12-03] MEDS: INSULIN GLARGINE SYRINGE. SQ SCH (20:55)
[2020-12-03 22:45] VITALS: BP 148/52
[2020-12-04 02:48] VITALS: BP 125/48
[2020-12-04] MEDS: LEVOTHYROXINE 100 MCG TABLET PO SCH (05:38)
[2020-12-04 07:00] VITALS: BP 118/37
[2020-12-04] MEDS: FLUoxetine HCL 20 MG CAPSULE PO SCH ×3 (09:00→20:14)
[2020-12-04] MEDS: INSULIN LISPRO 300 UNITS/3 ML VIAL. SQ SCH ×3 (09:16→17:00)
[2020-12-04] MEDS: CARVEDILOL 12.5 MG TABLET. PO SCH ×2 (09:17→17:12)
[2020-12-04] MEDS: SPIRONOLACTONE 25 MG TABLET PO SCH (09:18)
[2020-12-04] MEDS: NYSTATIN TOPICAL POWDER 15GM BOTTLE. TP SCH ×2 (09:18→20:15)
[2020-12-04 11:00] VITALS: BP 137/48
--- NOTE | 2020-12-04 12:44 | PDOC ---
PROGRESS NOTES Date of Service: DATE: 12/04/20 TIME: 12:44 Chief Complaint Chief Complaint VTE Prophylaxis Ordered VTE Prophylaxis Devices: Contraindicated VTE Pharmacological Prophylaxi: Yes Assessment/Plan Assessment/Plan IMPRESSION: 1. ACUTE ,SEVERE, intractable knee pain , with gait instability, high fall risk 2. . 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 Calcification identified just medial to the medial compartment could be an osteophyte, meniscal ossicle or calcification of meniscus. 3. MORBID OBESITY 4. MICROCYTIC ANEMIA 5. FALL, RECENT 11-15-20 6. UTI 7. Generalized weakness 8. hypomagnesemia plan admit ortho consult PT/OT PAIN CONTROL IV ROCEPHIN 1 GM Q 24 HRS iv mg 3 gm today D/W RN Justifications for Admission Other Justification JAIRO CHRISTENSEN MD Dec 03, 2020 11:45 Addendum: JAIRO CHRISTENSEN MD on 12/03/20 @ 17:37 * Moderate Complexity Pt/caregiver agrees with plan of care/goals * Yes Patient condition at conclusion of therapy * Pt in chair * Call light in reach * Phone in reach * PtIn no apparent distress * Pt denies further needs Communicated Patient Care With (Name, Title) * Suki OT; Saima JORGE Goal 1 - Bed Mobility Assistance Required * Independent Goal 1 Assessment * Appropriate - Continue Goal 2 - Transfers Assistance Required * Independent Goal 2 - Transfer Type * Sit to Stand Goal 2 Assessment * Appropriate - Continue Goal 3 - Ambulation Assistance Required * Independent Goal 3 - Ambulation Distance * 50' Goal 3 - Ambulation Device * Roller Walker Goal 3 Assessment * Appropriate - Continue Goal 4 - Stairs Assistance Required * Independent Goal 4 - Number of Stairs * 2-4 Goal 4 - Device on Stairs * Rail on Right Goal 4 Assessment * Appropriate - Continue Treatment Plan * Therapeutic Exercise History of Present Illness History of Present Illness Identification/Chief Complaint Chief Complaint SEEN IN ER WITH INTRACTABLE KNEE PAIN, UNABLE TO AMBULATE 75 year old female with history of diabetes type 2, hypertension, high cholesterol, cardiac stents, who presents to the ED today with multiple complaints. reports 9 out of 10 left knee pain that began on [place] Day after she fell. Patient denies any loss of consciousness. She is also complaining of mild posterior head pain that has been going on and off for 3 days. also complaining of nausea vomiting and diarrhea for 1 week. She is also complaining of generalized weakness that began today. Denies any fever. Denies any abdominal pain. Denies any chest pain or shortness of breath. WAS getting out of the vehicle and was unable to get up due to weakness she states she was unable to ambulate. Past Medical History Past Medical History Past Medical History Past Medical History Past Medical History: Diabetes-Type II, High Cholesterol, Hypertension, [place], Other Additional Past Medical Histor: HEART STENTS Past Surgical History: Appendectomy, Cholecystectomy, Tonsillectomy Additional Past Surgical Histo: CARDIAC STENTS Smoking Status: Former Smoker Alcohol Use: Rarely Drug Use: None fhx obesity Cardiovascular: HTN, Hyperlipidemia Endocrine: Diabetes, Hypothyroidism Past Surgical History Past Surgical History: Appendectomy, Cholecystectomy, Tonsillectomy Family History Family History: Diabetes, Hypertension Social History Smoke: No ALCOHOL: none Drugs: None Current Problem List Problem List Problems Medical Problems: (1) Acute on chronic renal failure Status: Acute (2) Nausea vomiting and diarrhea Status: Acute (3) Person under investigation for COVID-19 Status: Acute (4) Urinary tract infection Vitals Vitals Vital Signs Date Time Temp Pulse Resp B/P (MAP) Pulse Ox O2 Delivery O2 Flow Rate FiO2 12/04/20 11:00 99.4 66 18 137/48 (77) 93 Room Air 99.4 Physical Exam General: mild distress Lungs: Clear Extremities: No cyanosis Labs LABS Laboratory Tests Test 12/03/20 16:21 12/03/20 20:05 12/04/20 07:55 12/04/20 11:23 Glucose (Fingerstick) 182 mg/dL (70-99) 162 mg/dL (70-99) 158 mg/dL (70-99) 235 mg/dL (70-99) Assessment and Plan Assessmemt and Plan Problems Medical Problems: (1) Acute on chronic renal failure Status: Acute (2) Nausea vomiting and diarrhea Status: Acute (3) Person under investigation for COVID-19 Status: Acute (4) Urinary tract infection Status: Acute Comment Review of Relevant I have reviewed the following items jina (where applicable) has been applied. Labs Laboratory Tests Test 12/02/20 18:06 12/02/20 21:00 12/02/20 21:45 12/03/20 01:10 White Blood Count 5.7 x10^3/uL (4.0-11.0) Red Blood Count 4.35 x10^6/uL (3.50-5.40) Hemoglobin 10.7 g/dL (12.0-15.5) Hematocrit 33.6 % (36.0-47.0) Mean Corpuscular Volume 77 fL (79-100) Mean Corpuscular Hemoglobin 25 pg (25-35) Mean Corpuscular Hemoglobin Concent 32 g/dL (31-37) Red Cell Distribution Width 15.8 % (11.5-14.5) Platelet Count 234 x10^3/uL (140-400) Neutrophils (%) (Auto) 51 % (31-73) Lymphocytes (%) (Auto) 40 % (24-48) Monocytes (%) (Auto) 6 % (0-9) Eosinophils (%) (Auto) 2 % (0-3) Basophils (%) (Auto) 0 % (0-3) Neutrophils # (Auto) 3.0 x10^3/uL (1.8-7.7) Lymphocytes # (Auto) 2.3 x10^3/uL (1.0-4.8) Monocytes # (Auto) 0.4 x10^3/uL (0.0-1.1) Eosinophils # (Auto) 0.1 x10^3/uL (0.0-0.7) Basophils # (Auto) 0.0 x10^3/uL (0.0-0.2) Prothrombin Time 13.0 SEC (11.7-14.0) Prothromb Time International Ratio 1.0 (0.8-1.1) Activated Partial Thromboplast Time 32 SEC (24-38) Sodium Level 136 mmol/L (136-145) Potassium Level 4.5 mmol/L (3.5-5.1) Chloride Level 100 mmol/L (98-107) Carbon Dioxide Level 27 mmol/L (21-32) Anion Gap 9 (6-14) Blood Urea Nitrogen 16 mg/dL (7-20) Creatinine 1.6 mg/dL (0.6-1.0) Estimated GFR (Cockcroft-Gault) 31.3 BUN/Creatinine Ratio 10 (6-20) Glucose Level 195 mg/dL (70-99) Lactic Acid Level 1.6 mmol/L (0.4-2.0) Calcium Level 9.0 mg/dL (8.5-10.1) Magnesium Level 1.4 mg/dL (1.8-2.4) Total Bilirubin 0.3 mg/dL (0.2-1.0) Aspartate Amino Transf (AST/SGOT) 18 U/L (15-37) Alanine Aminotransferase (ALT/SGPT) 15 U/L (14-59) Alkaline Phosphatase 126 U/L (46-116) Creatine Kinase 47 U/L (26-192) Creatine Kinase MB (Mass) 0.8 ng/mL (0.0-3.6) Creatine Kinase MB Relative Index % (0-4) Troponin I Quantitative < 0.017 ng/mL (0.000-0.055) < 0.017 ng/mL (0.000-0.055) < 0.017 ng/mL (0.000-0.055) MU-Wch-J-Type Natriuretic Peptide 700 pg/mL (0-449) Total Protein 6.7 g/dL (6.4-8.2) Albumin 2.8 g/dL (3.4-5.0) Albumin/Globulin Ratio 0.7 (1.0-1.7) Lipase 27 U/L (73-393) Procalcitonin < 0.10 ng/mL (0.00-0.10) Thyroid Stimulating Hormone (TSH) 0.749 uIU/mL (0.358-3.74) Coronavirus (PCR) Detected (Not Detected) Influenza Type A Antigen Negative (NEGATIVE) Influenza Type B Antigen Negative (NEGATIVE) Urine Collection Type U cath Urine Color Rafia Urine Clarity Turbid Urine pH 5.5 (<5.0-8.0) Urine Specific [address] >=1.030 (1.000-1.030) Urine Protein 100 mg/dL (NEG-TRACE) Urine Glucose (UA) Negative mg/dL (NEG) Urine Ketones (Stick) Trace mg/dL (NEG) Urine Blood Large (NEG) Urine Nitrite Negative (NEG) Urine Bilirubin Small (NEG) Urine Urobilinogen Dipstick 0.2 mg/dL (0.2 mg/dL) Urine Leukocyte Esterase Large (NEG) Urine RBC 11-20 /HPF (0-2) Urine WBC Tntc /HPF (0-4) Urine Squamous Epithelial Cells Mod /LPF Urine Bacteria Moderate /HPF (0-FEW) Urine Mucus Slight /LPF Urine Opiates Screen Pos (NEG) Urine Methadone Screen Neg (NEG) Urine Barbiturates Neg (NEG) Urine Phencyclidine Screen Neg (NEG) Urine Amphetamine/Methamphetamine Neg (NEG) Urine Benzodiazepines Screen Neg (NEG) Urine Cocaine Screen Neg (NEG) Urine Cannabinoids Screen Neg (NEG) Urine Ethyl Alcohol Neg (NEG) Test 12/03/20 09:07 12/03/20 09:15 12/03/20 11:22 12/03/20 16:21 Glucose (Fingerstick) 170 mg/dL (70-99) 232 mg/dL (70-99) 182 mg/dL (70-99) White Blood Count 4.6 x10^3/uL (4.0-11.0) Red Blood Count 4.14 x10^6/uL (3.50-5.40) Hemoglobin 10.0 g/dL (12.0-15.5) Hematocrit 31.9 % (36.0-47.0) Mean Corpuscular Volume 77 fL (79-100) Mean Corpuscular Hemoglobin 24 pg (25-35) Mean Corpuscular Hemoglobin Concent 31 g/dL (31-37) Red Cell Distribution Width 15.7 % (11.5-14.5) Platelet Count 194 x10^3/uL (140-400) Neutrophils (%) (Auto) 49 % (31-73) Lymphocytes (%) (Auto) 42 % (24-48) Monocytes (%) (Auto) 7 % (0-9) Eosinophils (%) (Auto) 2 % (0-3) Basophils (%) (Auto) 0 % (0-3) Neutrophils # (Auto) 2.3 x10^3/uL (1.8-7.7) Lymphocytes # (Auto) 1.9 x10^3/uL (1.0-4.8) Monocytes # (Auto) 0.3 x10^3/uL (0.0-1.1) Eosinophils # (Auto) 0.1 x10^3/uL (0.0-0.7) Basophils # (Auto) 0.0 x10^3/uL (0.0-0.2) Sodium Level 138 mmol/L (136-145) Potassium Level 4.1 mmol/L (3.5-5.1) Chloride Level 103 mmol/L (98-107) Carbon Dioxide Level 26 mmol/L (21-32) Anion Gap 9 (6-14) Blood Urea Nitrogen 17 mg/dL (7-20) Creatinine 1.2 mg/dL (0.6-1.0) Estimated GFR (Cockcroft-Gault) 43.6 BUN/Creatinine Ratio 14 (6-20) Glucose Level 169 mg/dL (70-99) Calcium Level 8.6 mg/dL (8.5-10.1) Iron Level 25 ug/dL (50-170) Total Iron Binding Capacity 278 ug/dL (250-450) Iron Saturation 9 % (15-34) Total Bilirubin 0.3 mg/dL (0.2-1.0) Aspartate Amino Transf (AST/SGOT) 17 U/L (15-37) Alanine Aminotransferase (ALT/SGPT) 13 U/L (14-59) Alkaline Phosphatase 118 U/L (46-116) Total Protein 6.1 g/dL (6.4-8.2) Albumin 2.6 g/dL (3.4-5.0) Albumin/Globulin Ratio 0.7 (1.0-1.7) Test 12/03/20 20:05 12/04/20 07:55 12/04/20 11:23 Glucose (Fingerstick) 162 mg/dL (70-99) 158 mg/dL (70-99) 235 mg/dL (70-99) Laboratory Tests Test 12/03/20 16:21 12/03/20 20:05 12/04/20 07:55 12/04/20 11:23 Glucose (Fingerstick) 182 mg/dL (70-99) 162 mg/dL (70-99) 158 mg/dL (70-99) 235 mg/dL (70-99) Microbiology 12/02/20 Blood Culture - Preliminary, Resulted NO GROWTH AFTER 1 DAY 12/02/20 Urine Culture - Final, Complete Medications Current Medications Morphine Sulfate (Morphine Sulfate) 4 mg PRN Q15MIN PRN IV/SQ PAIN GREATER THAN 3/10 Last administered on 12/02/20at 23:04; Start 12/02/20 at 18:15; Stop 12/03/20 at 18:14; Status DC Ondansetron HCl (Zofran) 4 mg PRN Q8HRS PRN IV NAUSEA/VOMITING; Start 12/02/20 at 23:30; Stop 12/03/20 at 23:29; Status DC Morphine Sulfate (Morphine Sulfate) 4 mg PRN Q2HR PRN IV PAIN; Start 12/02/20 at 23:30; Stop 12/03/20 at 23:29; Status DC Acetaminophen (Tylenol) 650 mg PRN Q4HRS PRN PO FEVER > 100.3'F; Start 12/02/20 at 23:30; Stop 12/03/20 at 23:29; Status DC Ceftriaxone Sodium (Rocephin) 1 gm 1X ONCE IVP Last administered on 12/03/20at 00:00; Start 12/03/20 at 00:00; Stop 12/03/20 at 00:01; Status DC Sodium Chloride 1,000 ml @ 75 mls/hr 1X ONCE IV Last administered on 12/03/20at 00:02; Start 12/03/20 at 00:00; Stop 12/03/20 at 13:19; Status DC Influenza Virus Vaccine Quadrival (Fluzone Quad Syringe) 0.5 ml ONCE ONCE VAX IM Last administered on 12/03/20at 11:04; Start 12/03/20 at 09:00; Stop 12/03/20 at 09:01; Status DC Acetaminophen (Tylenol) 500 mg PRN Q6HRS PRN PO PAIN Last administered on 12/03/20at 11:17; Start 12/03/20 at 09:30 Diphenhydramine HCl (Benadryl) 25 mg PRN QHS PRN PO INSOMNIA; Start 12/03/20 at 09:30 Docusate Sodium (Colace) 100 mg PRN DAILY PRN PO CONSTIPATION; Start 12/03/20 at 09:30 Fluoxetine HCl (PROzac) 20 mg DAILY PO Last administered on 12/04/20at 09:18; Start 12/03/20 at 10:00 Senna/Docusate Sodium (Senna Plus) 1 tab PRN DAILY PRN PO CONSTIPATION; Start 12/03/20 at 09:30 Spironolactone (Aldactone) 25 mg DAILY PO Last administered on 12/04/20at 09:18; Start 12/03/20 at 10:00 Carvedilol (Coreg) 12.5 mg BIDWMEALS PO Last administered on 12/04/20at 09:17; Start 12/03/20 at 10:00 Non-Formulary Medication (Insulin Aspart (Novolog Flexpen)) 100 unit TID PRN PRN SQ hyperglycemia; Start 12/03/20 at 09:30; Status UNV Insulin Glargine (Lantus Syringe) 20 unit QHS SQ Last administered on 12/03/20at 20:55; Start 12/03/20 at 21:00 Levothyroxine Sodium (Synthroid) 200 mcg DAILY06 PO Last administered on 1at 05:38; Start 12/03/20 at 10:00 Magnesium Sulfate 50 ml @ 25 mls/hr 1X ONCE IV Last administered on 12/03/20at 11:02; Start 12/03/20 at 10:00; Stop 12/03/20 at 11:59; Status DC Magnesium Sulfate/ Dextrose 100 ml @ 100 mls/hr 1X ONCE IV ; Start 12/03/20 at 09:30; Stop 12/03/20 at 10:29; Status UNV Insulin Human Lispro (HumaLOG) 0-9 UNITS TIDWMEALS SQ Last administered on at 12:26; Start 12/03/20 at 12:00 Dextrose (Dextrose 50%-Water Syringe) 12.5 gm PRN Q15MIN PRN IV SEE COMMENTS; Start 12/03/20 at 09:45 Magnesium Sulfate/ Dextrose 100 ml @ 100 mls/hr 1X ONCE IV Last administered on 12/03/20at 12:53; Start 12/03/20 at 12:00; Stop 12/03/20 at 12:59; Status DC Ceftriaxone Sodium (Rocephin) 1 gm Q24H IVP Last administered on 12/03/20at 20:54; Start 12/03/20 at 21:00 Nystatin (Nystop) 1 loulou BID TP Last administered on 12/04/20at 09:18; Start 12/03/20 at 21:00 Lidocaine HCl (Xylocaine-Mpf 1% 2ml Vial) 2 ml 1X ONCE INJ ; Start 12/03/20 at 19:00; Stop 12/03/20 at 19:02; Status DC Methylprednisolone Acetate (DEPO-Medrol 80MG VIAL) 80 mg 1X ONCE IM ; Start 12/03/20 at 19:00; Stop 12/03/20 at 19:02; Status DC Lactobacillus Rhamnosus (Culturelle) 1 cap BID PO ; Start 12/04/20 at 21:00 Active Scripts Active Novolog Flexpen (Insulin Aspart) 100 Unit/1 Ml Insuln.pen 100 Unit SQ TID PRN PRN Reported Levothyroxine Sodium 200 Mcg Tablet 2 Tab PO DAILY Fluoxetine Hcl 20 Mg Capsule 20 Mg PO DAILY 90 Days Lantus Solostar (Insulin Glargine,Hum.rec.anlog) 100 Unit/1 Ml Insuln.pen 20 Unit SQ QHS Senokot-S Tablet (Sennosides/Docusate Sodium) 1 Each Tablet 1 Each PO PRN DAILY PRN Benadryl (Diphenhydramine Hcl) 25 Mg Capsule 25 Mg PO PRN QHS PRN Acetaminophen 500 Mg Tablet 500 Mg PO PRN Q6HRS PRN Spironolactone 25 Mg Tablet 25 Mg PO DAILY Colace (Docusate Sodium) 100 Mg Capsule 100 Mg PO PRN DAILY PRN Coreg (Carvedilol) 25 Mg Tablet 12.5 Mg PO BIDWMEALS Nitrostat (Nitroglycerin) 0.4 Mg Tab.subl 0.4 Mg SL PRN Q5MIN PRN Hydrocodone-Apap 7.5-325 (Hydrocodone Bit/Acetaminophen) 1 Tab Tablet 1 Tab PO PRN TID PRN Vitals/I & O Vital Sign - Last 24 Hours 12/03/20 12/03/20 12/03/20 12/03/20 15:17 17:21 19:00 22:45 Temp 98.3 98.0 98.0 98.3 98.0 98.0 Pulse 58 58 66 67 Resp 20 19 19 B/P (MAP) 106/31 (56) 106/31 107/44 (65) 148/52 (84) Pulse Ox 92 93 92 O2 Delivery Room Air Room Air Room Air 12/04/20 12/04/20 12/04/20 12/04/20 02:48 07:00 09:17 11:00 Temp 97.9 99.7 99.4 97.9 99.7 99.4 Pulse 72 65 65 66 Resp 18 17 18 B/P (MAP) 125/48 (73) 118/37 (64) 118/37 137/48 (77) Pulse Ox 95 89 93 O2 Delivery Room Air Room Air Room Air Intake and Output 12/03/20 12/03/20 12/04/20 15:00 23:00 07:00 Intake Total 420 ml 1240 ml 120 ml Balance 420 ml 1240 ml 120 ml Justicifation of Admission Dx: Justifications for Admission: Justification of Admission Dx: No JAIRO CHRISTENSEN MD Dec 04, 2020 12:44
[2020-12-04 15:00] VITALS: BP 112/39
--- NOTE | 2020-12-04 16:32 | NUR ---
SW following for discharge planning. SW spoke with RN and reviewed chart. COVID result came back positive. Attempted to call into pt's room, no answer. Spoke with daughter Ana Paula ([phone]) at length. Pt's daughter would like referral sent to [facility]. Phoned and faxed referral. SW following.
[2020-12-04 19:00] VITALS: BP 129/48
[2020-12-04] MEDS: cefTRIAXone IV Push 1 GM VIAL. IVP SCH (20:11)
[2020-12-04] MEDS: LACTOBACILLUS RHAMNOSUS GG 1 CAPSULE. PO SCH (20:13)
[2020-12-04] MEDS: INSULIN GLARGINE SYRINGE. SQ SCH (20:17)
[2020-12-04 22:48] VITALS: BP 121/45
[2020-12-05 03:00] VITALS: BP 126/48
[2020-12-05] MEDS: LEVOTHYROXINE 100 MCG TABLET PO SCH (05:18)
[2020-12-05 07:00] VITALS: BP 113/46
--- NOTE | 2020-12-05 09:51 | PDOC ---
PROGRESS NOTES Date of Service: DATE: 12/05/20 TIME: 09:49 Chief Complaint Chief Complaint VTE Prophylaxis Ordered VTE Prophylaxis Devices: Contraindicated VTE Pharmacological Prophylaxi: Yes Assessment/Plan Assessment/Plan IMPRESSION: 1. ACUTE ,SEVERE, intractable knee pain , with gait instability, high fall risk 2. . 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 Calcification identified just medial to the medial compartment could be an osteophyte, meniscal ossicle or calcification of meniscus. 3. MORBID OBESITY 4. MICROCYTIC ANEMIA 5. FALL, RECENT 11-15-20 6. UTI 7. Generalized weakness 8. hypomagnesemia plan admit ortho consult PT/OT PAIN CONTROL IV ROCEPHIN 1 GM Q 24 HRS iv mg 3 gm NEEDS snf, gait unstable Discharge Recommendations * Long-Term Unit Discharge Recommendation - DME * Rolling Walker needed * in order to complete ADLs * and ambulation safely D/W RN Justifications for Admission Other Justification JAIRO CHRISTENSEN MD Dec 03, 2020 11:45 Addendum: JAIRO CHRISTENSEN MD on 12/03/20 @ 17:37 * Moderate Complexity Pt/caregiver agrees with plan of care/goals * Yes Patient condition at conclusion of therapy * Pt in chair * Call light in reach * Phone in reach * PtIn no apparent distress * Pt denies further needs Communicated Patient Care With (Name, Title) * Suki OT; Saima RN Goal 1 - Bed Mobility Assistance Required * Independent Goal 1 Assessment * Appropriate - Continue Goal 2 - Transfers Assistance Required * Independent Goal 2 - Transfer Type * Sit to Stand Goal 2 Assessment * Appropriate - Continue Goal 3 - Ambulation Assistance Required * Independent Goal 3 - Ambulation Distance * 50' Goal 3 - Ambulation Device * Roller Walker Goal 3 Assessment * Appropriate - Continue Goal 4 - Stairs Assistance Required * Independent Goal 4 - Number of Stairs * 2-4 Goal 4 - Device on Stairs * Rail on Right Goal 4 Assessment * Appropriate - Continue Treatment Plan * Therapeutic Exercise History of Present Illness History of Present Illness Identification/Chief Complaint Chief Complaint SEEN IN ER WITH INTRACTABLE KNEE PAIN, UNABLE TO AMBULATE 75 year old female with history of diabetes type 2, hypertension, high cholesterol, cardiac stents, who presents to the ED today with multiple complaints. reports 9 out of 10 left knee pain that began on after she fell. Patient denies any loss of consciousness. She is also complaining of mild posterior head pain that has been going on and off for 3 days. also complaining of nausea vomiting and diarrhea for 1 week. She is also complaining of generalized weakness that began today. Denies any fever. Denies any abdominal pain. Denies any chest pain or shortness of breath. WAS getting out of the vehicle and was unable to get up due to weakness she s tates she was unable to ambulate. Past Medical History Past Medical History Past Medical History Past Medical History Past Medical History: Diabetes-Type II, High Cholesterol, Hypertension, [place], Other Additional Past Medical Histor: HEART STENTS Past Surgical History: Appendectomy, Cholecystectomy, Tonsillectomy Additional Past Surgical Histo: CARDIAC STENTS Smoking Status: Former Smoker Alcohol Use: Rarely Drug Use: None fhx obesity Cardiovascular: HTN, Hyperlipidemia Endocrine: Diabetes, Hypothyroidism Past Surgical History Past Surgical History: Appendectomy, Cholecystectomy, Tonsillectomy Family History Family History: Diabetes, Hypertension Social History Smoke: No ALCOHOL: none Drugs: None Current Problem List Problem List Problems Medical Problems: (1) Acute on chronic renal failure Status: Acute (2) Nausea vomiting and diarrhea Status: Acute (3) Person under investigation for COVID-19 Status: Acute (4) Urinary tract infection Vitals Vitals Vital Signs Date Time Temp Pulse Resp B/P (MAP) Pulse Ox O2 Delivery O2 Flow Rate FiO2 12/05/20 07:00 96.9 62 18 113/46 (68) 92 Nasal Cannula 96.9 Physical Exam General: mild distress Lungs: Clear Extremities: No cyanosis Labs LABS Laboratory Tests Test 12/04/20 11:23 12/04/20 16:24 12/04/20 19:39 12/05/20 07:42 Glucose (Fingerstick) 235 mg/dL (70-99) 134 mg/dL (70-99) 237 mg/dL (70-99) 192 mg/dL (70-99) Assessment and Plan Assessmemt and Plan Problems Medical Problems: (1) Acute on chronic renal failure Status: Acute (2) Nausea vomiting and diarrhea Status: Acute (3) Person under investigation for COVID-19 Status: Acute (4) Urinary tract infection Status: Acute * Coordination * Knowledge-safe techniques * Pain Pt/caregiver agrees with plan of care/goals * Yes Patient condition at conclusion of therapy * Pt in chair * Call light in reach * Phone in reach * PtIn no apparent distress * Pt denies further needs Communicated Patient Care With (Name, Title) * Saima RN; Cyn RIVERS Goal 1 - Bed Mobility Assistance Required * Independent Goal 1 Assessment * Appropriate - Continue Goal 2 - Transfers Assistance Required * Independent Goal 2 - Transfer Type * Sit to Stand Goal 2 Assessment * Appropriate - Continue Goal 3 - Ambulation Assistance Required * Independent Goal 3 - Ambulation Distance * 50' Goal 3 - Ambulation Device * Roller Walker Goal 3 Assessment * Appropriate - Continue Goal 4 - Stairs Assistance Required * Independent Goal 4 - Number of Stairs * 2-4 Goal 4 - Device on Stairs * Rail on Right Goal 4 Assessment * Appropriate - Continue Treatment Plan * Therapeutic Exercise * Bed Mobility Training * Transfer training * Gait Training * Neuromuscular Re-Ed * Dynamic Balance Training Frequency of Treatment Expected * 7 visits/week Duration of Treatment Expected * 2 weeks Discharge Recommendations * Long-Term Unit Discharge Recommendation - DME * Rolling Walker needed * in order to complete ADLs * and ambulation safely Discharge Recommendation Comments * Continue to monitor Comment Review of Relevant I have reviewed the following items jina (where applicable) has been applied. Labs Laboratory Tests Test 12/03/20 11:22 12/03/20 16:21 12/03/20 20:05 12/04/20 07:55 Glucose (Fingerstick) 232 mg/dL (70-99) 182 mg/dL (70-99) 162 mg/dL (70-99) 158 mg/dL (70-99) Test 12/04/20 11:23 12/04/20 16:24 12/04/20 19:39 12/05/20 07:42 Glucose (Fingerstick) 235 mg/dL (70-99) 134 mg/dL (70-99) 237 mg/dL (70-99) 192 mg/dL (70-99) Laboratory Tests Test 12/04/20 11:23 12/04/20 16:24 12/04/20 19:39 12/05/20 07:42 Glucose (Fingerstick) 235 mg/dL (70-99) 134 mg/dL (70-99) 237 mg/dL (70-99) 192 mg/dL (70-99) Microbiology 12/02/20 Blood Culture - Preliminary, Resulted NO GROWTH AFTER 2 DAYS 12/02/20 Urine Culture - Final, Complete Medications Current Medications Morphine Sulfate (Morphine Sulfate) 4 mg PRN Q15MIN PRN IV/SQ PAIN GREATER THAN 3/10 Last administered on 12/02/20at 23:04; Start 12/02/20 at 18:15; Stop 12/03/20 at 18:14; Status DC Ondansetron HCl (Zofran) 4 mg PRN Q8HRS PRN IV NAUSEA/VOMITING; Start 12/02/20 at 23:30; Stop 12/03/20 at 23:29; Status DC Morphine Sulfate (Morphine Sulfate) 4 mg PRN Q2HR PRN IV PAIN; Start 12/02/20 at 23:30; Stop 12/03/20 at 23:29; Status DC Acetaminophen (Tylenol) 650 mg PRN Q4HRS PRN PO FEVER > 100.3'F; Start 12/02/20 at 23:30; Stop 12/03/20 at 23:29; Status DC Ceftriaxone Sodium (Rocephin) 1 gm 1X ONCE IVP Last administered on 12/03/20at 00:00; Start 12/03/20 at 00:00; Stop 12/03/20 at 00:01; Status DC Sodium Chloride 1,000 ml @ 75 mls/hr 1X ONCE IV Last administered on 12/03/20at 00:02; Start 12/03/20 at 00:00; Stop 12/03/20 at 13:19; Status DC Influenza Virus Vaccine Quadrival (Fluzone Quad Syringe) 0.5 ml ONCE ONCE VAX IM Last administered on 12/03/20at 11:04; Start 12/03/20 at 09:00; Stop 12/03/20 at 09:01; Status DC Acetaminophen (Tylenol) 500 mg PRN Q6HRS PRN PO PAIN Last administered on 12/03/20at 11:17; Start 12/03/20 at 09:30 Diphenhydramine HCl (Benadryl) 25 mg PRN QHS PRN PO INSOMNIA; Start 12/03/20 at 09:30 Docusate Sodium (Colace) 100 mg PRN DAILY PRN PO CONSTIPATION Last administered on 12/04/20at 20:13; Start 12/03/20 at 09:30 Fluoxetine HCl (PROzac) 20 mg DAILY PO Last administered on 12/03/20at 11:02; Start 12/03/20 at 10:00; Stop 12/04/20 at 19:11; Status DC Senna/Docusate Sodium (Senna Plus) 1 tab PRN DAILY PRN PO CONSTIPATION Last administered on 12/04/20at 20:13; Start 12/03/20 at 09:30 Spironolactone (Aldactone) 25 mg DAILY PO Last administered on 12/04/20at 09:18; Start 12/03/20 at 10:00 Carvedilol (Coreg) 12.5 mg BIDWMEALS PO Last administered on 12/04/20at 17:12; Start 12/03/20 at 10:00 Non-Formulary Medication (Insulin Aspart (Novolog Flexpen)) 100 unit TID PRN PRN SQ hyperglycemia; Start 12/03/20 at 09:30; Status UNV Insulin Glargine (Lantus Syringe) 20 unit QHS SQ Last administered on 12/04/20at 20:17; Start 12/03/20 at 21:00 Levothyroxine Sodium (Synthroid) 200 mcg DAILY06 PO Last administered on 12/05/20at 05:18; Start 12/03/20 at 10:00 Magnesium Sulfate 50 ml @ 25 mls/hr 1X ONCE IV Last administered on 12/03/20at 11:02; Start 12/03/20 at 10:00; Stop 12/03/20 at 11:59; Status DC Magnesium Sulfate/ Dextrose 100 ml @ 100 mls/hr 1X ONCE IV ; Start 12/03/20 at 09:30; Stop 12/03/20 at 10:29; Status UNV Insulin Human Lispro (HumaLOG) 0-9 UNITS TIDWMEALS SQ Last administered on 12/04/20at 12:26; Start 12/03/20 at 12:00 Dextrose (Dextrose 50%-Water Syringe) 12.5 gm PRN Q15MIN PRN IV SEE COMMENTS; Start 12/03/20 at 09:45 Magnesium Sulfate/ Dextrose 100 ml @ 100 mls/hr 1X ONCE IV Last administered on 12/03/20at 12:53; Start 12/03/20 at 12:00; Stop 12/03/20 at 12:59; Status DC Ceftriaxone Sodium (Rocephin) 1 gm Q24H IVP Last administered on 12/04/20at 20:11; Start 12/03/20 at 21:00 Nystatin (Nystop) 1 loulou BID TP Last administered on 12/04/20at 20:15; Start 12/03/20 at 21:00 Lidocaine HCl (Xylocaine-Mpf 1% 2ml Vial) 2 ml 1X ONCE INJ ; Start 12/03/20 at 19:00; Stop 12/03/20 at 19:02; Status DC Methylprednisolone Acetate (DEPO-Medrol 80MG VIAL) 80 mg 1X ONCE IM ; Start 12/03/20 at 19:00; Stop 12/03/20 at 19:02; Status DC Lactobacillus Rhamnosus (Culturelle) 1 cap BID PO Last administered on 12/04/20at 20:13; Start 12/04/20 at 21:00 Fluoxetine HCl (PROzac) 20 mg HS PO Last administered on 12/04/20at 20:14; Start 12/04/20 at 21:00 Active Scripts Active Novolog Flexpen (Insulin Aspart) 100 Unit/1 Ml Insuln.pen 100 Unit SQ TID PRN PRN Reported Levothyroxine Sodium 200 Mcg Tablet 2 Tab PO DAILY Fluoxetine Hcl 20 Mg Capsule 20 Mg PO DAILY 90 Days Lantus Solostar (Insulin Glargine,Hum.rec.anlog) 100 Unit/1 Ml Insuln.pen 20 Unit SQ QHS Senokot-S Tablet (Sennosides/Docusate Sodium) 1 Each Tablet 1 Each PO PRN DAILY PRN Benadryl (Diphenhydramine Hcl) 25 Mg Capsule 25 Mg PO PRN QHS PRN Acetaminophen 500 Mg Tablet 500 Mg PO PRN Q6HRS PRN Spironolactone 25 Mg Tablet 25 Mg PO DAILY Colace (Docusate Sodium) 100 Mg Capsule 100 Mg PO PRN DAILY PRN Coreg (Carvedilol) 25 Mg Tablet 12.5 Mg PO BIDWMEALS Nitrostat (Nitroglycerin) 0.4 Mg Tab.subl 0.4 Mg SL PRN Q5MIN PRN Hydrocodone-Apap 7.5-325 (Hydrocodone Bit/Acetaminophen) 1 Tab Tablet 1 Tab PO PRN TID PRN Vitals/I & O Vital Sign - Last 24 Hours 12/04/20 12/04/20 12/04/20 12/04/20 11:00 15:00 17:12 19:00 Temp 99.4 99.1 99.9 99.4 99.1 99.9 Pulse 66 65 65 65 Resp 18 19 18 B/P (MAP) 137/48 (77) 112/39 (63) 112/39 129/48 (75) Pulse Ox 93 92 92 O2 Delivery Room Air Room Air Room Air 12/04/20 12/04/20 12/05/20 12/05/20 20:00 22:48 03:00 07:00 Temp 99.0 98.2 96.9 99.0 98.2 96.9 Pulse 65 62 62 Resp 18 20 18 B/P (MAP) 121/45 (70) 126/48 (74) 113/46 (68) Pulse Ox 94 94 92 O2 Delivery Room Air Room Air Room Air Nasal Cannula Intake and Output 12/04/20 12/04/20 12/05/20 15:00 23:00 07:00 Intake Total 550 ml 300 ml 120 ml Balance 550 ml 300 ml 120 ml Justicifation of Admission Dx: Justifications for Admission: Justification of Admission Dx: JAIRO Masters MD Dec 05, 2020 09:51
[2020-12-05 10:26] LABS: BASO % 0 % (0-3); EOS # 0.1 x10^3/uL (0.0-0.7); EOS % 1 % (0-3); HEMATOCRIT 33.1 % (36.0-47.0); HEMOGLOBIN 10.5 g/dL (12.0-15.5); LYMPH # 1.9 x10^3/uL (1.0-4.8); LYMPH % 41 % (24-48); MEAN CORPUSCULAR HEMOGLOBIN 25 pg (25-35); MEAN CORPUSCULAR HGB CONC 32 g/dL (31-37); MEAN CORPUSCULAR VOLUME 78 fL (79-100); MONO # 0.4 x10^3/uL (0.0-1.1); MONO % 8 % (0-9); NEUT # 2.3 x10^3/uL (1.8-7.7); NEUT % 50 % (31-73); PLATELET COUNT 189 x10^3/uL (140-400); RED BLOOD COUNT 4.26 x10^6/uL (3.50-5.40); RED CELL DISTRIBUTION WIDTH 15.8 % (11.5-14.5); WHITE BLOOD COUNT 4.6 x10^3/uL (4.0-11.0)
[2020-12-05 10:47] LABS: ALBUMIN 2.6 g/dL (3.4-5.0); ALBUMIN/GLOBULIN RATIO 0.7 (1.0-1.7); CALCIUM 8.9 mg/dL (8.5-10.1); GFR 53.8; POTASSIUM 4.6 mmol/L (3.5-5.1); TOTAL BILIRUBIN 0.3 mg/dL (0.2-1.0); TOTAL PROTEIN 6.6 g/dL (6.4-8.2)
[2020-12-05 11:00] VITALS: BP 143/46
[2020-12-05] MEDS: LACTOBACILLUS RHAMNOSUS GG 1 CAPSULE. PO SCH ×2 (11:20→21:55)
[2020-12-05] MEDS: CARVEDILOL 12.5 MG TABLET. PO SCH ×2 (11:21→17:00)
[2020-12-05] MEDS: SPIRONOLACTONE 25 MG TABLET PO SCH (11:21)
[2020-12-05] MEDS: INSULIN LISPRO 300 UNITS/3 ML VIAL. SQ SCH ×3 (11:22→17:58)
[2020-12-05] MEDS: NYSTATIN TOPICAL POWDER 15GM BOTTLE. TP SCH ×2 (11:28→21:56)
[2020-12-05 15:00] VITALS: BP 97/62
--- NOTE | 2020-12-05 16:50 | NUR ---
SANGITA following for discharge planning. SANGITA spoke with RN and reviewed chart. Pt COVID positive. SANGITA attempted to call into pt's room again today, no answer. SANGITA called pt's cell phone ([phone]) but the mailbox is full. SANGITA spoke with pt's daughter Ana Paula ([phone]) again today. Discharge plan remains to [facility] when a bed is available. SANGITA informed daughter of other SNU options that take patients with COVID. Pt and daughter requesting [facility]. SANGITA coordinated care with Bhavani from [facility], no bed today. SW following.
[2020-12-05] MEDS: ACETAMINOPHEN 500 MG TABLET PO PRN (18:06)
[2020-12-05 19:00] VITALS: BP 136/53
[2020-12-05] MEDS: FLUoxetine HCL 20 MG CAPSULE PO SCH (21:55)
[2020-12-05] MEDS: cefTRIAXone IV Push 1 GM VIAL. IVP SCH (21:56)
[2020-12-05] MEDS: INSULIN GLARGINE SYRINGE. SQ SCH (22:09)
[2020-12-05 23:00] VITALS: BP 134/52
[2020-12-06 03:00] VITALS: BP 132/54
[2020-12-06] MEDS: LEVOTHYROXINE 100 MCG TABLET PO SCH (06:21)
[2020-12-06 07:00] VITALS: BP 132/51
[2020-12-06] MEDS: CARVEDILOL 12.5 MG TABLET. PO SCH ×2 (08:30→20:50)
[2020-12-06] MEDS: LACTOBACILLUS RHAMNOSUS GG 1 CAPSULE. PO SCH ×2 (08:30→20:50)
[2020-12-06] MEDS: NYSTATIN TOPICAL POWDER 15GM BOTTLE. TP SCH ×2 (08:31→21:00)
[2020-12-06] MEDS: SPIRONOLACTONE 25 MG TABLET PO SCH (08:31)
[2020-12-06] MEDS: INSULIN LISPRO 300 UNITS/3 ML VIAL. SQ SCH ×3 (08:32→17:00)
--- NOTE | 2020-12-06 08:56 | PDOC ---
PROGRESS NOTES Date of Service: DATE: 12/06/20 TIME: 08:56 Chief Complaint Chief Complaint VTE Prophylaxis Ordered VTE Prophylaxis Devices: Contraindicated VTE Pharmacological Prophylaxi: Yes Assessment/Plan Assessment/Plan IMPRESSION: 1. ACUTE ,SEVERE, intractable knee pain , with gait instability, high fall risk 2. . 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 Calcification identified just medial to the medial compartment could be an osteophyte, meniscal ossicle or calcification of meniscus. 3. MORBID OBESITY 4. MICROCYTIC ANEMIA 5. FALL, RECENT 11-15-20 6. UTI 7. Generalized weakness 8. hypomagnesemia on replacement rx plan admit ortho consult PT/OT PAIN CONTROL IV ROCEPHIN 1 GM Q 24 HRS iv mg 3 gm NEEDS snf, gait unstable, await bed at [facility] D/W public health specialist Recommendations * [facility] Discharge Recommendation - DME * Rolling Walker needed * in order to complete ADLs * and ambulation safely D/W RN Justifications for Admission Other Justification JAIRO CHRISTENSEN MD Dec 03, 2020 11:45 Addendum: JAIRO CHRISTENSEN MD on 12/03/20 @ 17:37 * Moderate Complexity Pt/caregiver agrees with plan of care/goals * Yes Patient condition at conclusion of therapy * Pt in chair * Call light in reach * Phone in reach * PtIn no apparent distress * Pt denies further needs Communicated Patient Care With (Name, Title) * Suki OT; Saima RN Goal 1 - Bed Mobility Assistance Required * Independent Goal 1 Assessment * Appropriate - Continue Goal 2 - Transfers Assistance Required * Independent Goal 2 - Transfer Type * Sit to Stand Goal 2 Assessment * Appropriate - Continue Goal 3 - Ambulation Assistance Required * Independent Goal 3 - Ambulation Distance * 50' Goal 3 - Ambulation Device * Roller Walker Goal 3 Assessment * Appropriate - Continue Goal 4 - Stairs Assistance Required * Independent Goal 4 - Number of Stairs * 2-4 Goal 4 - Device on Stairs * Rail on Right Goal 4 Assessment * Appropriate - Continue Treatment Plan * Therapeutic Exercise History of Present Illness History of Present Illness Identification/Chief Complaint Chief Complaint SEEN IN ER WITH INTRACTABLE KNEE PAIN, UNABLE TO AMBULATE 75 year old female with history of diabetes type 2, hypertension, high cholesterol, cardiac stents, who presents to the ED today with multiple complaints. reports 9 out of 10 left knee pain that began on after she fell. Patient denies any loss of consciousness. She is also complaining of mild posterior head pain that has been going on and off for 3 days. also complaining of nausea vomiting and diarrhea for 1 week. She is also complaining of generalized weakness that began today. Denies any fever. Denies any abdominal pain. Denies any chest pain or shortness of breath. WAS getting out of the vehicle and was unable to get up due to weakness she states she was unable to ambulate. Past Medical History Past Medical History Past Medical History Past Medical History Past Medical History: Diabetes-Type II, High Cholesterol, Hypertension, SD, Other Additional Past Medical Histor: HEART STENTS Past Surgical History: Appendectomy, Cholecystectomy, Tonsillectomy Additional Past Surgical Histo: CARDIAC STENTS Smoking Status: Former Smoker Alcohol Use: Rarely Drug Use: None fhx obesity Cardiovascular: HTN, Hyperlipidemia Endocrine: Diabetes, Hypothyroidism Past Surgical History Past Surgical History: Appendectomy, Cholecystectomy, Tonsillectomy Family History Family History: Diabetes, Hypertension Social History Smoke: No ALCOHOL: none Drugs: None Current Problem List Problem List Problems Medical Problems: (1) Acute on chronic renal failure Status: Acute (2) Nausea vomiting and diarrhea Status: Acute (3) Person under investigation for COVID-19 Status: Acute (4) Urinary tract infection Vitals Vitals Vital Signs Date Time Temp Pulse Resp B/P (MAP) Pulse Ox O2 Delivery O2 Flow Rate FiO2 12/06/20 08:30 68 132/54 12/06/20 03:00 98.3 18 97 Room Air 98.3 Physical Exam General: Alert, Oriented X3, Cooperative, No acute distress Heart: Regular rate Lungs: Clear Abdomen: Normal bowel sounds, Soft Extremities: No clubbing, No cyanosis Labs LABS rocedure Result URINE CULTURE Final Final No Growth on 12/04/20 at 0718 Testing Performed by: [address] [address] For Inquires, the Physician may contact the Microbiology department at [phone] Unless otherwise specified, Testing Performed by: [facility] [address] [place] [address] For Inquires, the Physician may contact the Microbiology department at [phone] Laboratory Tests Test 12/05/20 10:04 12/05/20 11:54 12/05/20 17:03 White Blood Count 4.6 x10^3/uL (4.0-11.0) Red Blood Count 4.26 x10^6/uL (3.50-5.40) Hemoglobin 10.5 g/dL (12.0-15.5) Hematocrit 33.1 % (36.0-47.0) Mean Corpuscular Volume 78 fL (79-100) Mean Corpuscular Hemoglobin 25 pg (25-35) Mean Corpuscular Hemoglobin Concent 32 g/dL (31-37) Red Cell Distribution Width 15.8 % (11.5-14.5) Platelet Count 189 x10^3/uL (140-400) Neutrophils (%) (Auto) 50 % (31-73) Lymphocytes (%) (Auto) 41 % (24-48) Monocytes (%) (Auto) 8 % (0-9) Eosinophils (%) (Auto) 1 % (0-3) Basophils (%) (Auto) 0 % (0-3) Neutrophils # (Auto) 2.3 x10^3/uL (1.8-7.7) Lymphocytes # (Auto) 1.9 x10^3/uL (1.0-4.8) Monocytes # (Auto) 0.4 x10^3/uL (0.0-1.1) Eosinophils # (Auto) 0.1 x10^3/uL (0.0-0.7) Basophils # (Auto) 0.0 x10^3/uL (0.0-0.2) Sodium Level 134 mmol/L (136-145) Potassium Level 4.6 mmol/L (3.5-5.1) Chloride Level 99 mmol/L (98-107) Carbon Dioxide Level 26 mmol/L (21-32) Anion Gap 9 (6-14) Blood Urea Nitrogen 18 mg/dL (7-20) Creatinine 1.0 mg/dL (0.6-1.0) Estimated GFR (Cockcroft-Gault) 53.8 BUN/Creatinine Ratio 18 (6-20) Glucose Level 268 mg/dL (70-99) Calcium Level 8.9 mg/dL (8.5-10.1) Total Bilirubin 0.3 mg/dL (0.2-1.0) Aspartate Amino Transf (AST/SGOT) 20 U/L (15-37) Alanine Aminotransferase (ALT/SGPT) 13 U/L (14-59) Alkaline Phosphatase 122 U/L (46-116) Total Protein 6.6 g/dL (6.4-8.2) Albumin 2.6 g/dL (3.4-5.0) Albumin/Globulin Ratio 0.7 (1.0-1.7) Glucose (Fingerstick) 222 mg/dL (70-99) 223 mg/dL (70-99) Assessment and Plan Assessmemt and Plan Problems Medical Problems: (1) Acute on chronic renal failure Status: Acute (2) Nausea vomiting and diarrhea Status: Acute (3) Person under investigation for COVID-19 Status: Acute (4) Urinary tract infection Status: Acute for safe return home. Learning Preferences * One-on-One Instruction * Demonstration * Discussion Problem List (body system elements) * Impaired fnctnl mobility * Heart Rate * Strength * Obesity * Balance * Respiration/perfusion * Coordination * Knowledge-safe techniques * Pain Pt/caregiver agrees with plan of care/goals * Yes Patient condition at conclusion of therapy * Pt in chair * Call light in reach * Phone in reach * PtIn no apparent distress * Pt denies further needs Communicated Patient Care With (Name, Title) * Marisol RN; OT Goal 1 - Bed Mobility Assistance Required * Independent Goal 1 Assessment * Appropriate - Continue Goal 2 - Transfers Assistance Required * Independent Goal 2 - Transfer Type * Sit to Stand Goal 2 Assessment * Appropriate - Continue Goal 3 - Ambulation Assistance Required * Independent Goal 3 - Ambulation Distance * 50' Goal 3 - Ambulation Device * Roller Walker Goal 3 Assessment * Appropriate - Continue Goal 4 - Stairs Assistance Required * Independent Goal 4 - Number of Stairs * 2-4 Goal 4 - Device on Stairs * Rail on Right Goal 4 Assessment * Appropriate - Continue Treatment Plan * Therapeutic Exercise * Bed Mobility Training * Transfer training * Gait Training * Neuromuscular Re-Ed * Dynamic Balance Training Frequency of Treatment Expected * 7 visits/week Duration of Treatment Expected * 2 weeks Discharge Recommendations * [facility] Discharge Recommendation - DME * Rolling Walker needed * in order to complete ADLs * and ambulation safely Discharge Recommendation Comments * Continue to monitor Comment Review of Relevant I have reviewed the following items jina (where applicable) has been applied. Labs Laboratory Tests Test 12/04/20 11:23 12/04/20 16:24 12/04/20 19:39 12/05/20 07:42 Glucose (Fingerstick) 235 mg/dL (70-99) 134 mg/dL (70-99) 237 mg/dL (70-99) 192 mg/dL (70-99) Test 12/05/20 10:04 12/05/20 11:54 12/05/20 17:03 White Blood Count 4.6 x10^3/uL (4.0-11.0) Red Blood Count 4.26 x10^6/uL (3.50-5.40) Hemoglobin 10.5 g/dL (12.0-15.5) Hematocrit 33.1 % (36.0-47.0) Mean Corpuscular Volume 78 fL (79-100) Mean Corpuscular Hemoglobin 25 pg (25-35) Mean Corpuscular Hemoglobin Concent 32 g/dL (31-37) Red Cell Distribution Width 15.8 % (11.5-14.5) Platelet Count 189 x10^3/uL (140-400) Neutrophils (%) (Auto) 50 % (31-73) Lymphocytes (%) (Auto) 41 % (24-48) Monocytes (%) (Auto) 8 % (0-9) Eosinophils (%) (Auto) 1 % (0-3) Basophils (%) (Auto) 0 % (0-3) Neutrophils # (Auto) 2.3 x10^3/uL (1.8-7.7) Lymphocytes # (Auto) 1.9 x10^3/uL (1.0-4.8) Monocytes # (Auto) 0.4 x10^3/uL (0.0-1.1) Eosinophils # (Auto) 0.1 x10^3/uL (0.0-0.7) Basophils # (Auto) 0.0 x10^3/uL (0.0-0.2) Sodium Level 134 mmol/L (136-145) Potassium Level 4.6 mmol/L (3.5-5.1) Chloride Level 99 mmol/L (98-107) Carbon Dioxide Level 26 mmol/L (21-32) Anion Gap 9 (6-14) Blood Urea Nitrogen 18 mg/dL (7-20) Creatinine 1.0 mg/dL (0.6-1.0) Estimated GFR (Cockcroft-Gault) 53.8 BUN/Creatinine Ratio 18 (6-20) Glucose Level 268 mg/dL (70-99) Calcium Level 8.9 mg/dL (8.5-10.1) Total Bilirubin 0.3 mg/dL (0.2-1.0) Aspartate Amino Transf (AST/SGOT) 20 U/L (15-37) Alanine Aminotransferase (ALT/SGPT) 13 U/L (14-59) Alkaline Phosphatase 122 U/L (46-116) Total Protein 6.6 g/dL (6.4-8.2) Albumin 2.6 g/dL (3.4-5.0) Albumin/Globulin Ratio 0.7 (1.0-1.7) Glucose (Fingerstick) 222 mg/dL (70-99) 223 mg/dL (70-99) Laboratory Tests Test 12/05/20 10:04 12/05/20 11:54 12/05/20 17:03 White Blood Count 4.6 x10^3/uL (4.0-11.0) Red Blood Count 4.26 x10^6/uL (3.50-5.40) Hemoglobin 10.5 g/dL (12.0-15.5) Hematocrit 33.1 % (36.0-47.0) Mean Corpuscular Volume 78 fL (79-100) Mean Corpuscular Hemoglobin 25 pg (25-35) Mean Corpuscular Hemoglobin Concent 32 g/dL (31-37) Red Cell Distribution Width 15.8 % (11.5-14.5) Platelet Count 189 x10^3/uL (140-400) Neutrophils (%) (Auto) 50 % (31-73) Lymphocytes (%) (Auto) 41 % (24-48) Monocytes (%) (Auto) 8 % (0-9) Eosinophils (%) (Auto) 1 % (0-3) Basophils (%) (Auto) 0 % (0-3) Neutrophils # (Auto) 2.3 x10^3/uL (1.8-7.7) Lymphocytes # (Auto) 1.9 x10^3/uL (1.0-4.8) Monocytes # (Auto) 0.4 x10^3/uL (0.0-1.1) Eosinophils # (Auto) 0.1 x10^3/uL (0.0-0.7) Basophils # (Auto) 0.0 x10^3/uL (0.0-0.2) Sodium Level 134 mmol/L (136-145) Potassium Level 4.6 mmol/L (3.5-5.1) Chloride Level 99 mmol/L (98-107) Carbon Dioxide Level 26 mmol/L (21-32) Anion Gap 9 (6-14) Blood Urea Nitrogen 18 mg/dL (7-20) Creatinine 1.0 mg/dL (0.6-1.0) Estimated GFR (Cockcroft-Gault) 53.8 BUN/Creatinine Ratio 18 (6-20) Glucose Level 268 mg/dL (70-99) Calcium Level 8.9 mg/dL (8.5-10.1) Total Bilirubin 0.3 mg/dL (0.2-1.0) Aspartate Amino Transf (AST/SGOT) 20 U/L (15-37) Alanine Aminotransferase (ALT/SGPT) 13 U/L (14-59) Alkaline Phosphatase 122 U/L (46-116) Total Protein 6.6 g/dL (6.4-8.2) Albumin 2.6 g/dL (3.4-5.0) Albumin/Globulin Ratio 0.7 (1.0-1.7) Glucose (Fingerstick) 222 mg/dL (70-99) 223 mg/dL (70-99) Microbiology 12/02/20 Blood Culture - Preliminary, Resulted NO GROWTH AFTER 3 DAYS 12/02/20 Urine Culture - Final, Complete Medications Current Medications Morphine Sulfate (Morphine Sulfate) 4 mg PRN Q15MIN PRN IV/SQ PAIN GREATER THAN 3/10 Last administered on 12/02/20at 23:04; Start 12/02/20 at 18:15; Stop 12/03/20 at 18:14; Status DC Ondansetron HCl (Zofran) 4 mg PRN Q8HRS PRN IV NAUSEA/VOMITING; Start 12/02/20 at 23:30; Stop 12/03/20 at 23:29; Status DC Morphine Sulfate (Morphine Sulfate) 4 mg PRN Q2HR PRN IV PAIN; Start 12/02/20 at 23:30; Stop 12/03/20 at 23:29; Status DC Acetaminophen (Tylenol) 650 mg PRN Q4HRS PRN PO FEVER > 100.3'F; Start 12/02/20 at 23:30; Stop 12/03/20 at 23:29; Status DC Ceftriaxone Sodium (Rocephin) 1 gm 1X ONCE IVP Last administered on 12/03/20at 00:00; Start 12/03/20 at 00:00; Stop 12/03/20 at 00:01; Status DC Sodium Chloride 1,000 ml @ 75 mls/hr 1X ONCE IV Last administered on 12/03/20at 00:02; Start 12/03/20 at 00:00; Stop 12/03/20 at 13:19; Status DC Influenza Virus Vaccine Quadrival (Fluzone Quad Syringe) 0.5 ml ONCE ONCE VAX IM Last administered on 12/03/20at 11:04; Start 12/03/20 at 09:00; Stop 12/03/20 at 09:01; Status DC Acetaminophen (Tylenol) 500 mg PRN Q6HRS PRN PO PAIN Last administered on 12/05/20at 18:06; Start 12/03/20 at 09:30 Diphenhydramine HCl (Benadryl) 25 mg PRN QHS PRN PO INSOMNIA; Start 12/03/20 at 09:30 Docusate Sodium (Colace) 100 mg PRN DAILY PRN PO CONSTIPATION Last administered on 12/04/20at 20:13; Start 12/03/20 at 09:30 Fluoxetine HCl (PROzac) 20 mg DAILY PO Last administered on 12/03/20at 11:02; Start 12/03/20 at 10:00; Stop 12/04/20 at 19:11; Status DC Senna/Docusate Sodium (Senna Plus) 1 tab PRN DAILY PRN PO CONSTIPATION Last administered on 12/04/20at 20:13; Start 12/03/20 at 09:30 Spironolactone (Aldactone) 25 mg DAILY PO Last administered on 12/06/20at 08:31; Start 12/03/20 at 10:00 Carvedilol (Coreg) 12.5 mg BIDWMEALS PO Last administered on 12/06/20at 08:30; Start 12/03/20 at 10:00 Non-Formulary Medication (Insulin Aspart (Novolog Flexpen)) 100 unit TID PRN PRN SQ hyperglycemia; Start 12/03/20 at 09:30; Status UNV Insulin Glargine (Lantus Syringe) 20 unit QHS SQ Last administered on 12/05/20at 22:09; Start 12/03/20 at 21:00 Levothyroxine Sodium (Synthroid) 200 mcg DAILY06 PO Last administered on 12/06/20at 06:21; Start 12/03/20 at 10:00 Magnesium Sulfate 50 ml @ 25 mls/hr 1X ONCE IV Last administered on 12/03/20at 11:02; Start 12/03/20 at 10:00; Stop 12/03/20 at 11:59; Status DC Magnesium Sulfate/ Dextrose 100 ml @ 100 mls/hr 1X ONCE IV ; Start 12/03/20 at 09:30; Stop 12/03/20 at 10:29; Status UNV Insulin Human Lispro (HumaLOG) 0-9 UNITS TIDWMEALS SQ Last administered on 12/06/20at 08:32; Start 12/03/20 at 12:00 Dextrose (Dextrose 50%-Water Syringe) 12.5 gm PRN Q15MIN PRN IV SEE COMMENTS; Start 12/03/20 at 09:45 Magnesium Sulfate/ Dextrose 100 ml @ 100 mls/hr 1X ONCE IV Last administered on 12/03/20at 12:53; Start 12/03/20 at 12:00; Stop 12/03/20 at 12:59; Status DC Ceftriaxone Sodium (Rocephin) 1 gm Q24H IVP Last administered on 12/05/20at 21:56; Start 12/03/20 at 21:00 Nystatin (Nystop) 1 loluou BID TP Last administered on 12/06/20at 08:31; Start 12/03/20 at 21:00 Lidocaine HCl (Xylocaine-Mpf 1% 2ml Vial) 2 ml 1X ONCE INJ ; Start 12/03/20 at 19:00; Stop 12/03/20 at 19:02; Status DC Methylprednisolone Acetate (DEPO-Medrol 80MG VIAL) 80 mg 1X ONCE IM ; Start 12/03/20 at 19:00; Stop 12/03/20 at 19:02; Status DC Lactobacillus Rhamnosus (Culturelle) 1 cap BID PO Last administered on 12/06/20at 08:30; Start 12/04/20 at 21:00 Fluoxetine HCl (PROzac) 20 mg HS PO Last administered on 12/05/20at 21:55; Sta rt 12/04/20 at 21:00 Active Scripts Active Novolog Flexpen (Insulin Aspart) 100 Unit/1 Ml Insuln.pen 100 Unit SQ TID PRN PRN Reported Levothyroxine Sodium 200 Mcg Tablet 2 Tab PO DAILY Fluoxetine Hcl 20 Mg Capsule 20 Mg PO DAILY 90 Days Lantus Solostar (Insulin Glargine,Hum.rec.anlog) 100 Unit/1 Ml Insuln.pen 20 Unit SQ QHS Senokot-S Tablet (Sennosides/Docusate Sodium) 1 Each Tablet 1 Each PO PRN DAILY PRN Benadryl (Diphenhydramine Hcl) 25 Mg Capsule 25 Mg PO PRN QHS PRN Acetaminophen 500 Mg Tablet 500 Mg PO PRN Q6HRS PRN Spironolactone 25 Mg Tablet 25 Mg PO DAILY Colace (Docusate Sodium) 100 Mg Capsule 100 Mg PO PRN DAILY PRN Coreg (Carvedilol) 25 Mg Tablet 12.5 Mg PO BIDWMEALS Nitrostat (Nitroglycerin) 0.4 Mg Tab.subl 0.4 Mg SL PRN Q5MIN PRN Hydrocodone-Apap 7.5-325 (Hydrocodone Bit/Acetaminophen) 1 Tab Tablet 1 Tab PO PRN TID PRN Vitals/I & O Vital Sign - Last 24 Hours 12/05/20 12/05/20 12/05/20 12/05/20 11:00 11:21 15:00 17:00 Temp 98.3 97.2 98.3 97.2 Pulse 62 62 54 54 Resp 18 18 B/P (MAP) 143/46 (78) 113/46 97/62 (74) 97/62 Pulse Ox 96 94 O2 Delivery Room Air Room Air 12/05/20 12/05/20 12/05/20 12/06/20 19:00 20:00 23:00 03:00 Temp 98.2 97.8 98.3 98.2 97.8 98.3 Pulse 62 57 68 Resp 20 18 18 B/P (MAP) 136/53 (80) 134/52 (79) 132/54 (80) Pulse Ox 93 92 97 O2 Delivery Room Air Room Air Room Air Room Air 12/06/20 08:30 Pulse 68 B/P (MAP) 132/54 Intake and Output 12/05/20 12/05/20 12/06/20 15:00 23:00 07:00 Intake Total 500 ml 300 ml 0 ml Balance 500 ml 300 ml 0 ml Justicifation of Admission Dx: Justifications for Admission: Justification of Admission Dx: JAIRO Masters MD Dec 06, 2020 08:56
[2020-12-06 11:02] VITALS: BP 141/57
--- NOTE | 2020-12-06 11:36 | NUR ---
SW following for discharge planning. Spoke with RN and reviewed chart. Spoke with Bhavani at [facility] and they should have a bed for this pt tomorrow, 12/07. Pt added to weekend discharge list. Addendum: 12/09/20 at 0911 by ARDEN QUESADA Pt discharged to [facility] per chart review. No further SW needs at this time.
[2020-12-06] MEDS ORDERED: MAGNESIUM SULFATE 2GM 50 ML IV PRN (14:00)
[2020-12-06] MEDS: ENOXAPARIN 40 MG/0.4 ML SYRINGE. SQ SCH ×2 (14:37→20:50)
[2020-12-06] MEDS: ACETAMINOPHEN 500 MG TABLET PO PRN (14:45)
[2020-12-06 15:00] VITALS: BP 117/33
[2020-12-06] MEDS: CHOLECALCIFEROL (VITAMIN D3) 5,000 UNIT CAPSULE PO SCH (16:14)
[2020-12-06] MEDS: ASCORBIC ACID 500 MG TABLET PO SCH (16:14)
[2020-12-06] MEDS: ZINC SULFATE 220 MG CAPSULE. PO SCH (16:14)
[2020-12-06] MEDS ORDERED: HYDROcodone/APAP 7.5/325MG 1 TAB TABLET PO ONE (16:15)
[2020-12-06 19:00] VITALS: BP 144/53
[2020-12-06] MEDS: MAGNESIUM OXIDE 400 MG TABLET PO SCH (20:50)
[2020-12-06] MEDS: FLUoxetine HCL 20 MG CAPSULE PO SCH (20:50)
[2020-12-06] MEDS: FAMOTIDINE 20 MG TABLET. PO SCH (20:50)
[2020-12-06] MEDS: INSULIN GLARGINE SYRINGE. SQ SCH (20:53)
[2020-12-06 23:00] VITALS: BP 111/38
[2020-12-07 03:00] VITALS: BP 133/43
[2020-12-07 05:12] LABS: BASO % 0 % (0-3); EOS # 0.2 x10^3/uL (0.0-0.7); EOS % 4 % (0-3); HEMATOCRIT 32.2 % (36.0-47.0); HEMOGLOBIN 10.3 g/dL (12.0-15.5); LYMPH # 2.4 x10^3/uL (1.0-4.8); LYMPH % 40 % (24-48); MEAN CORPUSCULAR HEMOGLOBIN 25 pg (25-35); MEAN CORPUSCULAR HGB CONC 32 g/dL (31-37); MEAN CORPUSCULAR VOLUME 77 fL (79-100); MONO # 0.5 x10^3/uL (0.0-1.1); MONO % 8 % (0-9); NEUT % 49 % (31-73); PLATELET COUNT 201 x10^3/uL (140-400); RED BLOOD COUNT 4.17 x10^6/uL (3.50-5.40); RED CELL DISTRIBUTION WIDTH 15.6 % (11.5-14.5); WHITE BLOOD COUNT 6.1 x10^3/uL (4.0-11.0)
[2020-12-07 05:36] LABS: ALBUMIN 2.6 g/dL (3.4-5.0); ALBUMIN/GLOBULIN RATIO 0.7 (1.0-1.7); CALCIUM 9.2 mg/dL (8.5-10.1); GFR 53.8; POTASSIUM 4.1 mmol/L (3.5-5.1); TOTAL BILIRUBIN 0.3 mg/dL (0.2-1.0); TOTAL PROTEIN 6.6 g/dL (6.4-8.2)
[2020-12-07] MEDS: LEVOTHYROXINE 100 MCG TABLET PO SCH (06:23)
[2020-12-07 07:00] VITALS: BP 134/31
[2020-12-07] MEDS: NYSTATIN TOPICAL POWDER 15GM BOTTLE. TP SCH (10:10)
[2020-12-07] MEDS: ZINC SULFATE 220 MG CAPSULE. PO SCH (10:11)
[2020-12-07] MEDS: ENOXAPARIN 40 MG/0.4 ML SYRINGE. SQ SCH (10:11)
[2020-12-07] MEDS: FAMOTIDINE 20 MG TABLET. PO SCH (10:12)
[2020-12-07] MEDS: SPIRONOLACTONE 25 MG TABLET PO SCH (10:12)
[2020-12-07] MEDS: MAGNESIUM OXIDE 400 MG TABLET PO SCH (10:12)
[2020-12-07] MEDS: CHOLECALCIFEROL (VITAMIN D3) 5,000 UNIT CAPSULE PO SCH (10:12)
[2020-12-07] MEDS: CARVEDILOL 12.5 MG TABLET. PO SCH ×2 (10:12→16:50)
[2020-12-07] MEDS: LACTOBACILLUS RHAMNOSUS GG 1 CAPSULE. PO SCH (10:12)
[2020-12-07] MEDS: ASCORBIC ACID 500 MG TABLET PO SCH (10:13)
[2020-12-07] MEDS: INSULIN LISPRO 300 UNITS/3 ML VIAL. SQ SCH ×3 (10:15→16:52)
--- NOTE | 2020-12-07 10:29 | PDOC ---
PROGRESS NOTES Date of Service: DATE: 12/07/20 TIME: 10:28 Chief Complaint Chief Complaint VTE Prophylaxis Ordered VTE Prophylaxis Devices: Contraindicated VTE Pharmacological Prophylaxi: Yes DISCHARGE DX Assessment/Plan IMPRESSION: 1. ACUTE ,SEVERE, intractable knee pain , with gait instability, high fall risk 2. . 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 Calcification identified just medial to the medial compartment could be an osteophyte, meniscal ossicle or calcification of meniscus. 3. MORBID OBESITY 4. MICROCYTIC ANEMIA 5. FALL, RECENT 11-15-20 6. UTI NO GROWTH by culture 7. Generalized weakness 8. 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 Recommendations * [facility] Discharge Recommendation - DME * Rolling Walker needed * in order to complete ADLs * and ambulation safely * * * D/C PLANNING 32 MIN to [facility] D/W RN Justifications for Admission Other Justification JAIRO CHRISTENSEN MD Dec 03, 2020 11:45 Addendum: JAIRO CHRISTENSEN MD on 12/03/20 @ 17:37 * Moderate Complexity Pt/caregiver agrees with plan of care/goals * Yes Patient condition at conclusion of therapy * Pt in chair * Call light in reach * Phone in reach * PtIn no apparent distress * Pt denies further needs Communicated Patient Care With (Name, Title) * Suki OT; Saima RN Goal 1 - Bed Mobility Assistance Required * Independent Goal 1 Assessment * Appropriate - Continue Goal 2 - Transfers Assistance Required * Independent Goal 2 - Transfer Type * Sit to Stand Goal 2 Assessment * Appropriate - Continue Goal 3 - Ambulation Assistance Required * Independent Goal 3 - Ambulation Distance * 50' Goal 3 - Ambulation Device * Roller Walker Goal 3 Assessment * Appropriate - Continue Goal 4 - Stairs Assistance Required * Independent Goal 4 - Number of Stairs * 2-4 Goal 4 - Device on Stairs * Rail on Right Goal 4 Assessment * Appropriate - Continue Treatment Plan * Therapeutic Exercise History of Present Illness History of Present Illness Identification/Chief Complaint Chief Complaint SEEN IN ER WITH INTRACTABLE KNEE PAIN, UNABLE TO AMBULATE 75 year old female with history of diabetes type 2, hypertension, high cholesterol, cardiac stents, who presents to the ED today with multiple complaints. reports 9 out of 10 left knee pain that began on Day after she fell. Patient denies any loss of consciousness. She is also complaining of mild posterior head pain that has been going on and off for 3 days. also complaining of nausea vomiting and diarrhea for 1 week. She is also complaining of generalized weakness that began today. Denies any fever. Denies any abdominal pain. Denies any chest pain or shortness of breath. WAS getting out of the vehicle and was unable to get up due to weakness she states she was unable to ambulate. Past Medical History Past Medical History Past Medical History Past Medical History Past Medical History: Diabetes-Type II, High Cholesterol, Hypertension, NM, Other Additional Past Medical Histor: HEART STENTS Past Surgical History: Appendectomy, Cholecystectomy, Tonsillectomy Additional Past Surgical Histo: CARDIAC STENTS Smoking Status: Former Smoker Alcohol Use: Rarely Drug Use: None fhx obesity Cardiovascular: HTN, Hyperlipidemia Endocrine: Diabetes, Hypothyroidism Past Surgical History Past Surgical History: Appendectomy, Cholecystectomy, Tonsillectomy Family History Family History: Diabetes, Hypertension Social History Smoke: No ALCOHOL: none Drugs: None Current Problem List Problem List Problems Medical Problems: (1) Acute on chronic renal failure Status: Acute (2) Nausea vomiting and diarrhea Status: Acute (3) Person under investigation for COVID-19 Status: Acute (4) Urinary tract infection Vitals Vitals Vital Signs Date Time Temp Pulse Resp B/P (MAP) Pulse Ox O2 Delivery O2 Flow Rate FiO2 12/07/20 10:12 56 134/31 12/07/20 07:00 97.7 18 93 Room Air 97.7 Physical Exam General: Alert, Oriented X3, Cooperative, No acute distress Heart: Regular rate, Normal S1, Normal S2 Lungs: Clear Abdomen: Normal bowel sounds, Soft, No tenderness Extremities: No clubbing, No cyanosis Skin: No rashes Labs LABS Laboratory Tests Test 12/06/20 11:11 12/06/20 16:32 12/06/20 20:05 1/16/21 04:30 Glucose (Fingerstick) 219 mg/dL (70-99) 120 mg/dL (70-99) 136 mg/dL (70-99) White Blood Count 6.1 x10^3/uL (4.0-11.0) Red Blood Count 4.17 x10^6/uL (3.50-5.40) Hemoglobin 10.3 g/dL (12.0-15.5) Hematocrit 32.2 % (36.0-47.0) Mean Corpuscular Volume 77 fL (79-100) Mean Corpuscular Hemoglobin 25 pg (25-35) Mean Corpuscular Hemoglobin Concent 32 g/dL (31-37) Red Cell Distribution Width 15.6 % (11.5-14.5) Platelet Count 201 x10^3/uL (140-400) Neutrophils (%) (Auto) 49 % (31-73) Lymphocytes (%) (Auto) 40 % (24-48) Monocytes (%) (Auto) 8 % (0-9) Eosinophils (%) (Auto) 4 % (0-3) Basophils (%) (Auto) 0 % (0-3) Neutrophils # (Auto) 3.0 x10^3/uL (1.8-7.7) Lymphocytes # (Auto) 2.4 x10^3/uL (1.0-4.8) Monocytes # (Auto) 0.5 x10^3/uL (0.0-1.1) Eosinophils # (Auto) 0.2 x10^3/uL (0.0-0.7) Basophils # (Auto) 0.0 x10^3/uL (0.0-0.2) Sodium Level 137 mmol/L (136-145) Potassium Level 4.1 mmol/L (3.5-5.1) Chloride Level 101 mmol/L (98-107) Carbon Dioxide Level 28 mmol/L (21-32) Anion Gap 8 (6-14) Blood Urea Nitrogen 22 mg/dL (7-20) Creatinine 1.0 mg/dL (0.6-1.0) Estimated GFR (Cockcroft-Gault) 53.8 BUN/Creatinine Ratio 22 (6-20) Glucose Level 161 mg/dL (70-99) Calcium Level 9.2 mg/dL (8.5-10.1) Magnesium Level 1.9 mg/dL (1.8-2.4) Total Bilirubin 0.3 mg/dL (0.2-1.0) Aspartate Amino Transf (AST/SGOT) 17 U/L (15-37) Alanine Aminotransferase (ALT/SGPT) 14 U/L (14-59) Alkaline Phosphatase 116 U/L (46-116) Total Protein 6.6 g/dL (6.4-8.2) Albumin 2.6 g/dL (3.4-5.0) Albumin/Globulin Ratio 0.7 (1.0-1.7) Test 12/07/20 07:39 Glucose (Fingerstick) 162 mg/dL (70-99) Assessment and Plan Assessmemt and Plan Problems Medical Problems: (1) Acute on chronic renal failure Status: Acute (2) Nausea vomiting and diarrhea Status: Acute (3) Person under investigation for COVID-19 Status: Acute (4) Urinary tract infection Status: Acute Comment Review of Relevant I have reviewed the following items jina (where applicable) has been applied. Labs Laboratory Tests Test 12/05/20 11:54 12/05/20 17:03 12/05/20 21:09 12/06/20 07:18 Glucose (Fingerstick) 222 mg/dL (70-99) 223 mg/dL (70-99) 212 mg/dL (70-99) 187 mg/dL (70-99) Test 12/06/20 11:11 12/06/20 16:32 12/06/20 20:05 12/07/20 04:30 Glucose (Fingerstick) 219 mg/dL (70-99) 120 mg/dL (70-99) 136 mg/dL (70-99) White Blood Count 6.1 x10^3/uL (4.0-11.0) Red Blood Count 4.17 x10^6/uL (3.50-5.40) Hemoglobin 10.3 g/dL (12.0-15.5) Hematocrit 32.2 % (36.0-47.0) Mean Corpuscular Volume 77 fL (79-100) Mean Corpuscular Hemoglobin 25 pg (25-35) Mean Corpuscular Hemoglobin Concent 32 g/dL (31-37) Red Cell Distribution Width 15.6 % (11.5-14.5) Platelet Count 201 x10^3/uL (140-400) Neutrophils (%) (Auto) 49 % (31-73) Lymphocytes (%) (Auto) 40 % (24-48) Monocytes (%) (Auto) 8 % (0-9) Eosinophils (%) (Auto) 4 % (0-3) Basophils (%) (Auto) 0 % (0-3) Neutrophils # (Auto) 3.0 x10^3/uL (1.8-7.7) Lymphocytes # (Auto) 2.4 x10^3/uL (1.0-4.8) Monocytes # (Auto) 0.5 x10^3/uL (0.0-1.1) Eosinophils # (Auto) 0.2 x10^3/uL (0.0-0.7) Basophils # (Auto) 0.0 x10^3/uL (0.0-0.2) Sodium Level 137 mmol/L (136-145) Potassium Level 4.1 mmol/L (3.5-5.1) Chloride Level 101 mmol/L (98-107) Carbon Dioxide Level 28 mmol/L (21-32) Anion Gap 8 (6-14) Blood Urea Nitrogen 22 mg/dL (7-20) Creatinine 1.0 mg/dL (0.6-1.0) Estimated GFR (Cockcroft-Gault) 53.8 BUN/Creatinine Ratio 22 (6-20) Glucose Level 161 mg/dL (70-99) Calcium Level 9.2 mg/dL (8.5-10.1) Magnesium Level 1.9 mg/dL (1.8-2.4) Total Bilirubin 0.3 mg/dL (0.2-1.0) Aspartate Amino Transf (AST/SGOT) 17 U/L (15-37) Alanine Aminotransferase (ALT/SGPT) 14 U/L (14-59) Alkaline Phosphatase 116 U/L (46-116) Total Protein 6.6 g/dL (6.4-8.2) Albumin 2.6 g/dL (3.4-5.0) Albumin/Globulin Ratio 0.7 (1.0-1.7) Test 12/07/20 07:39 Glucose (Fingerstick) 162 mg/dL (70-99) Laboratory Tests Test 12/06/20 11:11 12/06/20 16:32 12/06/20 20:05 12/07/20 04:30 Glucose (Fingerstick) 219 mg/dL (70-99) 120 mg/dL (70-99) 136 mg/dL (70-99) White Blood Count 6.1 x10^3/uL (4.0-11.0) Red Blood Count 4.17 x10^6/uL (3.50-5.40) Hemoglobin 10.3 g/dL (12.0-15.5) Hematocrit 32.2 % (36.0-47.0) Mean Corpuscular Volume 77 fL (79-100) Mean Corpuscular Hemoglobin 25 pg (25-35) Mean Corpuscular Hemoglobin Concent 32 g/dL (31-37) Red Cell Distribution Width 15.6 % (11.5-14.5) Platelet Count 201 x10^3/uL (140-400) Neutrophils (%) (Auto) 49 % (31-73) Lymphocytes (%) (Auto) 40 % (24-48) Monocytes (%) (Auto) 8 % (0-9) Eosinophils (%) (Auto) 4 % (0-3) Basophils (%) (Auto) 0 % (0-3) Neutrophils # (Auto) 3.0 x10^3/uL (1.8-7.7) Lymphocytes # (Auto) 2.4 x10^3/uL (1.0-4.8) Monocytes # (Auto) 0.5 x10^3/uL (0.0-1.1) Eosinophils # (Auto) 0.2 x10^3/uL (0.0-0.7) Basophils # (Auto) 0.0 x10^3/uL (0.0-0.2) Sodium Level 137 mmol/L (136-145) Potassium Level 4.1 mmol/L (3.5-5.1) Chloride Level 101 mmol/L (98-107) Carbon Dioxide Level 28 mmol/L (21-32) Anion Gap 8 (6-14) Blood Urea Nitrogen 22 mg/dL (7-20) Creatinine 1.0 mg/dL (0.6-1.0) Estimated GFR (Cockcroft-Gault) 53.8 BUN/Creatinine Ratio 22 (6-20) Glucose Level 161 mg/dL (70-99) Calcium Level 9.2 mg/dL (8.5-10.1) Magnesium Level 1.9 mg/dL (1.8-2.4) Total Bilirubin 0.3 mg/dL (0.2-1.0) Aspartate Amino Transf (AST/SGOT) 17 U/L (15-37) Alanine Aminotransferase (ALT/SGPT) 14 U/L (14-59) Alkaline Phosphatase 116 U/L (46-116) Total Protein 6.6 g/dL (6.4-8.2) Albumin 2.6 g/dL (3.4-5.0) Albumin/Globulin Ratio 0.7 (1.0-1.7) Test 12/07/20 07:39 Glucose (Fingerstick) 162 mg/dL (70-99) Microbiology 12/02/20 Blood Culture - Preliminary, Resulted NO GROWTH AFTER 4 DAYS 12/02/20 Urine Culture - Final, Complete Medications Current Medications Morphine Sulfate (Morphine Sulfate) 4 mg PRN Q15MIN PRN IV/SQ PAIN GREATER THAN 3/10 Last administered on 12/02/20at 23:04; Start 12/02/20 at 18:15; Stop 12/03/20 at 18:14; Status DC Ondansetron HCl (Zofran) 4 mg PRN Q8HRS PRN IV NAUSEA/VOMITING; Start 12/02/20 at 23:30; Stop 12/03/20 at 23:29; Status DC Morphine Sulfate (Morphine Sulfate) 4 mg PRN Q2HR PRN IV PAIN; Start 12/02/20 at 23:30; Stop 12/03/20 at 23:29; Status DC Acetaminophen (Tylenol) 650 mg PRN Q4HRS PRN PO FEVER > 100.3'F; Start 12/02/20 at 23:30; Stop 12/03/20 at 23:29; Status DC Ceftriaxone Sodium (Rocephin) 1 gm 1X ONCE IVP Last administered on 12/03/20at 00:00; Start 12/03/20 at 00:00; Stop 12/03/20 at 00:01; Status DC Sodium Chloride 1,000 ml @ 75 mls/hr 1X ONCE IV Last administered on 12/03/20at 00:02; Start 12/03/20 at 00:00; Stop 12/03/20 at 13:19; Status DC Influenza Virus Vaccine Quadrival (Fluzone Quad Syringe) 0.5 ml ONCE ONCE VAX IM Last administered on 12/03/20at 11:04; Start 12/03/20 at 09:00; Stop 12/03/20 at 09:01; Status DC Acetaminophen (Tylenol) 500 mg PRN Q6HRS PRN PO PAIN Last administered on 12/06/20at 14:45; Start 12/03/20 at 09:30 Diphenhydramine HCl (Benadryl) 25 mg PRN QHS PRN PO INSOMNIA; Start 12/03/20 at 09:30 Docusate Sodium (Colace) 100 mg PRN DAILY PRN PO CONSTIPATION Last administered on 12/04/20at 20:13; Start 12/03/20 at 09:30 Fluoxetine HCl (PROzac) 20 mg DAILY PO Last administered on 12/03/20at 11:02; Start 12/03/20 at 10:00; Stop 12/04/20 at 19:11; Status DC Senna/Docusate Sodium (Senna Plus) 1 tab PRN DAILY PRN PO CONSTIPATION Last administered on 12/04/20 20:13; Start 12/03/20 at 09:30 Spironolactone (Aldactone) 25 mg DAILY PO Last administered on 12/07/20at 10:12; Start 12/03/20 at 10:00 Carvedilol (Coreg) 12.5 mg BIDWMEALS PO Last administered on 12/07/20at 10:12; Start 12/03/20 at 10:00 Non-Formulary Medication (Insulin Aspart (Novolog Flexpen)) 100 unit TID PRN PRN SQ hyperglycemia; Start 12/03/20 at 09:30; Status UNV Insulin Glargine (Lantus Syringe) 20 unit QHS SQ Last administered on 12/06/20at 20:53; Start 12/03/20 at 21:00 Levothyroxine Sodium (Synthroid) 200 mcg DAILY06 PO Last administered on 12/07/20at 06:23; Start 12/03/20 at 10:00 Magnesium Sulfate 50 ml @ 25 mls/hr 1X ONCE IV Last administered on 12/03/20at 11:02; Start 12/03/20 at 10:00; Stop 12/03/20 at 11:59; Status DC Magnesium Sulfate/ Dextrose 100 ml @ 100 mls/hr 1X ONCE IV ; Start 12/03/20 at 09:30; Stop 12/03/20 at 10:29; Status UNV Insulin Human Lispro (HumaLOG) 0-9 UNITS TIDWMEALS SQ Last administered on 12/07/20at 10:15; Start 12/03/20 at 12:00 Dextrose (Dextrose 50%-Water Syringe) 12.5 gm PRN Q15MIN PRN IV SEE COMMENTS; Start 12/03/20 at 09:45 Magnesium Sulfate/ Dextrose 100 ml @ 100 mls/hr 1X ONCE IV Last administered on 12/03/20at 12:53; Start 12/03/20 at 12:00; Stop 12/03/20 at 12:59; Status DC Ceftriaxone Sodium (Rocephin) 1 gm Q24H IVP Last administered on 12/05/20at 21:56; Start 12/03/20 at 21:00; Stop 12/06/20 at 13:50; Status DC Nystatin (Nystop) 1 loulou BID TP Last administered on 12/07/20at 10:10; Start 12/03/20 at 21:00 Lidocaine HCl (Xylocaine-Mpf 1% 2ml Vial) 2 ml 1X ONCE INJ ; Start 12/03/20 at 19:00; Stop 12/03/20 at 19:02; Status DC Methylprednisolone Acetate (DEPO-Medrol 80MG VIAL) 80 mg 1X ONCE IM ; Start 12/03/20 at 19:00; Stop 12/03/20 at 19:02; Status DC Lactobacillus Rhamnosus (Culturelle) 1 cap BID PO Last administered on 12/07/20at 10:12; Start 12/04/20 at 21:00 Fluoxetine HCl (PROzac) 20 mg HS PO Last administered on 12/06/20at 20:50; Start 12/04/20 at 21:00 Magnesium Sulfate 50 ml @ 25 mls/hr PRN DAILY PRN IV MAG <1.8; Start 12/06/20 at 14:00 Magnesium Oxide (Magnesium Oxide) 400 mg BID PO Last administered on 12/07/20at 10:12; Start 12/06/20 at 21:00 Enoxaparin Sodium (Lovenox 40mg Syringe) 40 mg BID SQ Last administered on 12/07/20at 10:11; Start 12/06/20 at 14:30 Famotidine (Pepcid) 20 mg BID PO Last administered on 12/07/20at 10:12; Start 12/06/20 at 21:00 Ascorbic Acid (Vitamin C) 500 mg DAILY PO Last administered on 12/07/20at 10:13; Start 12/06/20 at 16:00 Vitamin D (Vitamin D3) 5,000 unit DAILY PO Last administered on 12/07/20at 10:12; Start 12/06/20 at 16:00 Zinc Sulfate (Orazinc) 220 mg DAILY PO Last administered on 12/07/20at 10:11; Start 12/06/20 at 16:00 Acetaminophen/ Hydrocodone Bitart (Lortab 7.5/325) 1 tab 1X ONCE PO Last administered on 12/06/20at 16:14; Start 12/06/20 at 16:15; Stop 12/06/20 at 16:16; Status DC Active Scripts Active Novolog Flexpen (Insulin Aspart) 100 Unit/1 Ml Insuln.pen 100 Unit SQ TID PRN MN N Reported Levothyroxine Sodium 200 Mcg Tablet 2 Tab PO DAILY Fluoxetine Hcl 20 Mg Capsule 20 Mg PO DAILY 90 Days Lantus Solostar (Insulin Glargine,Hum.rec.anlog) 100 Unit/1 Ml Insuln.pen 20 Unit SQ QHS Senokot-S Tablet (Sennosides/Docusate Sodium) 1 Each Tablet 1 Each PO PRN DAILY PRN Benadryl (Diphenhydramine Hcl) 25 Mg Capsule 25 Mg PO PRN QHS PRN Acetaminophen 500 Mg Tablet 500 Mg PO PRN Q6HRS PRN Spironolactone 25 Mg Tablet 25 Mg PO DAILY Colace (Docusate Sodium) 100 Mg Capsule 100 Mg PO PRN DAILY PRN Coreg (Carvedilol) 25 Mg Tablet 12.5 Mg PO BIDWMEALS Nitrostat (Nitroglycerin) 0.4 Mg Tab.subl 0.4 Mg SL PRN Q5MIN PRN Hydrocodone-Apap 7.5-325 (Hydrocodone Bit/Acetaminophen) 1 Tab Tablet 1 Tab PO PRN TID PRN Vitals/I & O Vital Sign - Last 24 Hours 12/06/20 12/06/20 12/06/20 12/06/20 11:02 15:00 16:14 17:39 Temp 97.6 96.9 97.6 96.9 Pulse 56 57 Resp 16 14 B/P (MAP) 141/57 (85) 117/33 (61) Pulse Ox 93 95 O2 Delivery Room Air Room Air Room Air Room Air 12/06/20 12/06/20 12/06/20 12/06/20 19:00 20:00 20:50 23:00 Temp 97.9 98.3 97.9 98.3 Pulse 55 57 Resp 18 18 B/P (MAP) 144/53 (83) 144/53 111/38 (62) Pulse Ox 94 95 O2 Delivery Room Air Room Air Room Air 12/07/20 12/07/20 12/07/20 03:00 07:00 10:12 Temp 97.4 97.7 97.4 97.7 Pulse 54 56 56 Resp 18 18 B/P (MAP) 133/43 (73) 134/31 (65) 134/31 Pulse Ox 95 93 O2 Delivery Room Air Room Air Intake and Output 12/06/20 12/06/20 12/07/20 15:00 23:00 07:00 Intake Total 480 ml Balance 480 ml Justicifation of Admission Dx: Justifications for Admission: Justification of Admission Dx: JAIRO Masters MD Dec 07, 2020 10:29
[2020-12-07 11:10] VITALS: BP 138/40
--- NOTE | 2020-12-07 12:28 | PDOC3 ---
Discharge Summary Date of Admission: Dec 02, 2020 Date of Discharge: Dec 07, 2020 Follow-Up: 1-2 days Admitting Diagnosis comment: VTE Prophylaxis Ordered VTE Prophylaxis Devices: Contraindicated VTE Pharmacological Prophylaxi: Yes DISCHARGE DX Assessment/Plan IMPRESSION: 1. ACUTE ,SEVERE, intractable knee pain , with gait instability, high fall risk 2. . 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 Calcification identified just medial to the medial compartment could be an osteophyte, meniscal ossicle or calcification of meniscus. 3. MORBID OBESITY 4. MICROCYTIC ANEMIA 5. FALL, RECENT 11-15-20 6. UTI NO GROWTH by culture 7. Generalized weakness 8. 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 Recommendations * Assisted Unit Discharge Recommendation - DME * Rolling Walker needed * in order to complete ADLs * and ambulation safely * * * D/C PLANNING 32 MIN to [facility] D/W RN Justifications for Admission Other Justification JAIRO CHRISTENSEN MD Dec 03, 2020 11:45 Addendum: JAIRO CHRISTENSEN MD on 12/03/20 @ 17:37 * Moderate Complexity Pt/caregiver agrees with plan of care/goals * Yes Patient condition at conclusion of therapy * Pt in chair * Call light in reach * Phone in reach * PtIn no apparent distress * Pt denies further needs Communicated Patient Care With (Name, Title) * Suki OT; Saima RN Goal 1 - Bed Mobility Assistance Required * Independent Goal 1 Assessment * Appropriate - Continue Goal 2 - Transfers Assistance Required * Independent Goal 2 - Transfer Type * Sit to Stand Goal 2 Assessment * Appropriate - Continue Goal 3 - Ambulation Assistance Required * Independent Goal 3 - Ambulation Distance * 50' Goal 3 - Ambulation Device * Roller Walker Goal 3 Assessment * Appropriate - Continue Goal 4 - Stairs Assistance Required * Independent Goal 4 - Number of Stairs * 2-4 Goal 4 - Device on Stairs * Rail on Right Goal 4 Assessment * Appropriate - Continue Treatment Plan * Therapeutic Exercise History of Present Illness History of Present Illness Identification/Chief Complaint Chief Complaint SEEN IN ER WITH INTRACTABLE KNEE PAIN, UNABLE TO AMBULATE 75 year old female with history of diabetes type 2, hypertension, high cholesterol, cardiac stents, who presents to the ED today with multiple complaints. reports 9 out of 10 left knee pain that began on after she fell. Patient denies any loss of consciousness. She is also complaining of mild posterior head pain that has been going on and off for 3 days. also complaining of nausea vomiting and diarrhea for 1 week. She is also complaining of generalized weakness that began today. Denies any fever. Denies any abdominal pain. Denies any chest pain or shortness of breath. WAS getting out of the vehicle and was unable to get up due to weakness she states she was unable to ambulate. FINAL DIAGNOSIS Problems Medical Problems: (1) Acute on chronic renal failure Status: Acute (2) Nausea vomiting and diarrhea Status: Acute (3) Person under investigation for COVID-19 Status: Acute (4) Urinary tract infection Status: Acute Brief Hospital Course Ms. Kenney is a 75 old [sex] who presented with [gait instability, intractasble knee pain, covid pos] CONDITION AT DISCHARGE: Improved Discharge Medications Current Medications Morphine Sulfate (Morphine Sulfate) 4 mg PRN Q15MIN PRN IV/SQ PAIN GREATER THAN 3/10 Last administered on 12/02/20at 23:04; Start 12/02/20 at 18:15; Stop 12/03/20 at 18:14; Status DC Ondansetron HCl (Zofran) 4 mg PRN Q8HRS PRN IV NAUSEA/VOMITING; Start 12/02/20 at 23:30; Stop 12/03/20 at 23:29; Status DC Morphine Sulfate (Morphine Sulfate) 4 mg PRN Q2HR PRN IV PAIN; Start 12/02/20 at 23:30; Stop 12/03/20 at 23:29; Status DC Acetaminophen (Tylenol) 650 mg PRN Q4HRS PRN PO FEVER > 100.3'F; Start 12/02/20 at 23:30; Stop 12/03/20 at 23:29; Status DC Ceftriaxone Sodium (Rocephin) 1 gm 1X ONCE IVP Last administered on 12/03/20at 00:00; Start 12/03/20 at 00:00; Stop 12/03/20 at 00:01; Status DC Sodium Chloride 1,000 ml @ 75 mls/hr 1X ONCE IV Last administered on 12/03/20at 00:02; Start 12/03/20 at 00:00; Stop 12/03/20 at 13:19; Status DC Influenza Virus Vaccine Quadrival (Fluzone Quad Syringe) 0.5 ml ONCE ONCE VAX IM Last administered on 12/03/20at 11:04; Start 12/03/20 at 09:00; Stop 12/03/20 at 09:01; Status DC Acetaminophen (Tylenol) 500 mg PRN Q6HRS PRN PO PAIN Last administered on 12/06/20at 14:45; Start 12/03/20 at 09:30 Diphenhydramine HCl (Benadryl) 25 mg PRN QHS PRN PO INSOMNIA; Start 12/03/20 at 09:30 Docusate Sodium (Colace) 100 mg PRN DAILY PRN PO CONSTIPATION Last administered on 12/04/20at 20:13; Start 12/03/20 at 09:30 Fluoxetine HCl (PROzac) 20 mg DAILY PO Last administered on 12/03/20at 11:02; Start 12/03/20 at 10:00; Stop 12/04/20 at 19:11; Status DC Senna/Docusate Sodium (Senna Plus) 1 tab PRN DAILY PRN PO CONSTIPATION Last administered on 12/04/20at 20:13; Start 12/03/20 at 09:30 Spironolactone (Aldactone) 25 mg DAILY PO Last administered on 12/07/20at 10:12; Start 12/03/20 at 10:00 Carvedilol (Coreg) 12.5 mg BIDWMEALS PO Last administered on 12/07/20at 10:12; Start 12/03/20 at 10:00 Non-Formulary Medication (Insulin Aspart (Novolog Flexpen)) 100 unit TID PRN PRN SQ hyperglycemia; Start 12/03/20 at 09:30; Status UNV Insulin Glargine (Lantus Syringe) 20 unit QHS SQ Last administered on 12/06/20at 20:53; Start 12/03/20 at 21:00 Levothyroxine Sodium (Synthroid) 200 mcg DAILY06 PO Last administered on 12/07/20at 06:23; Start 12/03/20 at 10:00 Magnesium Sulfate 50 ml @ 25 mls/hr 1X ONCE IV Last administered on 12/03/20at 11:02; Start 12/03/20 at 10:00; Stop 12/03/20 at 11:59; Status DC Magnesium Sulfate/ Dextrose 100 ml @ 100 mls/hr 1X ONCE IV ; Start 12/03/20 at 09:30; Stop 12/03/20 at 10:29; Status UNV Insulin Human Lispro (HumaLOG) 0-9 UNITS TIDWMEALS SQ Last administered on 12/07/20at 10:15; Start 12/03/20 at 12:00 Dextrose (Dextrose 50%-Water Syringe) 12.5 gm PRN Q15MIN PRN IV SEE COMMENTS; Start 12/03/20 at 09:45 Magnesium Sulfate/ Dextrose 100 ml @ 100 mls/hr 1X ONCE IV Last administered on 12/03/20at 12:53; Start 12/03/20 at 12:00; Stop 12/03/20 at 12:59; Status DC Ceftriaxone Sodium (Rocephin) 1 gm Q24H IVP Last administered on 12/05/20at 21:56; Start 12/03/20 at 21:00; Stop 12/06/20 at 13:50; Status DC Nystatin (Nystop) 1 loulou BID TP Last administered on 12/07/20at 10:10; Start 12/03/20 at 21:00 Lidocaine HCl (Xylocaine-Mpf 1% 2ml Vial) 2 ml 1X ONCE INJ ; Start 12/03/20 at 19:00; Stop 12/03/20 at 19:02; Status DC Methylprednisolone Acetate (DEPO-Medrol 80MG VIAL) 80 mg 1X ONCE IM ; Start 12/03/20 at 19:00; Stop 12/03/20 at 19:02; Status DC Lactobacillus Rhamnosus (Culturelle) 1 cap BID PO Last administered on 12/07/20at 10:12; Start 12/04/20 at 21:00 Fluoxetine HCl (PROzac) 20 mg HS PO Last administered on 12/06/20at 20:50; Start 12/04/20 at 21:00 Magnesium Sulfate 50 ml @ 25 mls/hr PRN DAILY PRN IV MAG <1.8; Start 12/06/20 at 14:00 Magnesium Oxide (Magnesium Oxide) 400 mg BID PO Last administered on 12/07/20at 10:12; Start 12/06/20 at 21:00 Enoxaparin Sodium (Lovenox 40mg Syringe) 40 mg BID SQ Last administered on 12/07/20at 10:11; Start 12/06/20 at 14:30 Famotidine (Pepcid) 20 mg BID PO Last administered on 12/07/20at 10:12; Start 12/06/20 at 21:00 Ascorbic Acid (Vitamin C) 500 mg DAILY PO Last administered on 12/07/20at 10:13; Start 12/06/20 at 16:00 Vitamin D (Vitamin D3) 5,000 unit DAILY PO Last administered on 12/07/20at 10: 12; Start 12/06/20 at 16:00 Zinc Sulfate (Orazinc) 220 mg DAILY PO Last administered on 12/07/20at 10:11; Start 12/06/20 at 16:00 Acetaminophen/ Hydrocodone Bitart (Lortab 7.5/325) 1 tab 1X ONCE PO Last administered on 12/06/20at 16:14; Start 12/06/20 at 16:15; Stop 12/06/20 at 16:16; Status DC Active Scripts Active Novolog Flexpen (Insulin Aspart) 100 Unit/1 Ml Insuln.pen 100 Unit SQ TID PRN PRN Reported Levothyroxine Sodium 200 Mcg Tablet 2 Tab PO DAILY Fluoxetine Hcl 20 Mg Capsule 20 Mg PO DAILY 90 Days Lantus Solostar (Insulin Glargine,Hum.rec.anlog) 100 Unit/1 Ml Insuln.pen 20 Unit SQ QHS Senokot-S Tablet (Sennosides/Docusate Sodium) 1 Each Tablet 1 Each PO PRN DAILY PRN Benadryl (Diphenhydramine Hcl) 25 Mg Capsule 25 Mg PO PRN QHS PRN Acetaminophen 500 Mg Tablet 500 Mg PO PRN Q6HRS PRN Spironolactone 25 Mg Tablet 25 Mg PO DAILY Colace (Docusate Sodium) 100 Mg Capsule 100 Mg PO PRN DAILY PRN Coreg (Carvedilol) 25 Mg Tablet 12.5 Mg PO BIDWMEALS Nitrostat (Nitroglycerin) 0.4 Mg Tab.subl 0.4 Mg SL PRN Q5MIN PRN Hydrocodone-Apap 7.5-325 (Hydrocodone Bit/Acetaminophen) 1 Tab Tablet 1 Tab PO PRN TID PRN Vital Signs Vital Signs Date Time Temp Pulse Resp B/P (MAP) Pulse Ox O2 Delivery O2 Flow Rate FiO2 12/07/20 11:10 97.7 60 18 138/40 (72) 94 Room Air 97.7 Labs Laboratory Tests Test 12/05/20 17:03 12/05/20 21:09 12/06/20 07:18 12/06/20 11:11 Glucose (Fingerstick) 223 mg/dL (70-99) 212 mg/dL (70-99) 187 mg/dL (70-99) 219 mg/dL (70-99) Test 12/06/20 16:32 12/06/20 20:05 12/07/20 04:30 12/07/20 07:39 Glucose (Fingerstick) 120 mg/dL (70-99) 136 mg/dL (70-99) 162 mg/dL (70-99) White Blood Count 6.1 x10^3/uL (4.0-11.0) Red Blood Count 4.17 x10^6/uL (3.50-5.40) Hemoglobin 10.3 g/dL (12.0-15.5) Hematocrit 32.2 % (36.0-47.0) Mean Corpuscular Volume 77 fL (79-100) Mean Corpuscular Hemoglobin 25 pg (25-35) Mean Corpuscular Hemoglobin Concent 32 g/dL (31-37) Red Cell Distribution Width 15.6 % (11.5-14.5) Platelet Count 201 x10^3/uL (140-400) Neutrophils (%) (Auto) 49 % (31-73) Lymphocytes (%) (Auto) 40 % (24-48) Monocytes (%) (Auto) 8 % (0-9) Eosinophils (%) (Auto) 4 % (0-3) Basophils (%) (Auto) 0 % (0-3) Neutrophils # (Auto) 3.0 x10^3/uL (1.8-7.7) Lymphocytes # (Auto) 2.4 x10^3/uL (1.0-4.8) Monocytes # (Auto) 0.5 x10^3/uL (0.0-1.1) Eosinophils # (Auto) 0.2 x10^3/uL (0.0-0.7) Basophils # (Auto) 0.0 x10^3/uL (0.0-0.2) Sodium Level 137 mmol/L (136-145) Potassium Level 4.1 mmol/L (3.5-5.1) Chloride Level 101 mmol/L (98-107) Carbon Dioxide Level 28 mmol/L (21-32) Anion Gap 8 (6-14) Blood Urea Nitrogen 22 mg/dL (7-20) Creatinine 1.0 mg/dL (0.6-1.0) Estimated GFR (Cockcroft-Gault) 53.8 BUN/Creatinine Ratio 22 (6-20) Glucose Level 161 mg/dL (70-99) Calcium Level 9.2 mg/dL (8.5-10.1) Magnesium Level 1.9 mg/dL (1.8-2.4) Total Bilirubin 0.3 mg/dL (0.2-1.0) Aspartate Amino Transf (AST/SGOT) 17 U/L (15-37) Alanine Aminotransferase (ALT/SGPT) 14 U/L (14-59) Alkaline Phosphatase 116 U/L (46-116) Total Protein 6.6 g/dL (6.4-8.2) Albumin 2.6 g/dL (3.4-5.0) Albumin/Globulin Ratio 0.7 (1.0-1.7) Test 12/07/20 10:57 Glucose (Fingerstick) 229 mg/dL (70-99) Laboratory Tests Test 12/06/20 16:32 12/06/20 20:05 12/07/20 04:30 12/07/20 07:39 Glucose (Fingerstick) 120 mg/dL (70-99) 136 mg/dL (70-99) 162 mg/dL (70-99) White Blood Count 6.1 x10^3/uL (4.0-11.0) Red Blood Count 4.17 x10^6/uL (3.50-5.40) Hemoglobin 10.3 g/dL (12.0-15.5) Hematocrit 32.2 % (36.0-47.0) Mean Corpuscular Volume 77 fL (79-100) Mean Corpuscular Hemoglobin 25 pg (25-35) Mean Corpuscular Hemoglobin Concent 32 g/dL (31-37) Red Cell Distribution Width 15.6 % (11.5-14.5) Platelet Count 201 x10^3/uL (140-400) Neutrophils (%) (Auto) 49 % (31-73) Lymphocytes (%) (Auto) 40 % (24-48) Monocytes (%) (Auto) 8 % (0-9) Eosinophils (%) (Auto) 4 % (0-3) Basophils (%) (Auto) 0 % (0-3) Neutrophils # (Auto) 3.0 x10^3/uL (1.8-7.7) Lymphocytes # (Auto) 2.4 x10^3/uL (1.0-4.8) Monocytes # (Auto) 0.5 x10^3/uL (0.0-1.1) Eosinophils # (Auto) 0.2 x10^3/uL (0.0-0.7) Basophils # (Auto) 0.0 x10^3/uL (0.0-0.2) Sodium Level 137 mmol/L (136-145) Potassium Level 4.1 mmol/L (3.5-5.1) Chloride Level 101 mmol/L (98-107) Carbon Dioxide Level 28 mmol/L (21-32) Anion Gap 8 (6-14) Blood Urea Nitrogen 22 mg/dL (7-20) Creatinine 1.0 mg/dL (0.6-1.0) Estimated GFR (Cockcroft-Gault) 53.8 BUN/Creatinine Ratio 22 (6-20) Glucose Level 161 mg/dL (70-99) Calcium Level 9.2 mg/dL (8.5-10.1) Magnesium Level 1.9 mg/dL (1.8-2.4) Total Bilirubin 0.3 mg/dL (0.2-1.0) Aspartate Amino Transf (AST/SGOT) 17 U/L (15-37) Alanine Aminotransferase (ALT/SGPT) 14 U/L (14-59) Alkaline Phosphatase 116 U/L (46-116) Total Protein 6.6 g/dL (6.4-8.2) Albumin 2.6 g/dL (3.4-5.0) Albumin/Globulin Ratio 0.7 (1.0-1.7) Test 12/07/20 10:57 Glucose (Fingerstick) 229 mg/dL (70-99) Allergies Allergies Coded Allergies Type Severity Reaction Last Updated Verified hydrochlorothiazide Allergy Intermediate Swelling 04/03/14 Yes valsartan Allergy Intermediate Swelling 04/03/14 Yes I S O L A T I O N *CONTACT* Allergy Unknown 12/07/19 Yes Disposition/Orders: Other (d/c to snf bed) Justicifation of Admission Dx: Justifications for Admission: Justification of Admission Dx: No JAIRO CHRISTENSEN MD Dec 07, 2020 12:28
[2020-12-07] MEDS ORDERED: ENOX40DI3 SQ (12:33)
[2020-12-07] MEDS ORDERED: ZINC220C2 PO (12:33)
[2020-12-07] MEDS ORDERED: CHOL5000 PO (12:33)
[2020-12-07] MEDS ORDERED: FAMO20TA5 PO (12:33)
[2020-12-07] MEDS ORDERED: INSU100V35 SQ (12:33)
[2020-12-07] MEDS ORDERED: LACT1CAP19 PO (12:33)
[2020-12-07] MEDS ORDERED: NYST15PO2 TP (12:33)
[2020-12-07] MEDS ORDERED: MAGN400T44 PO (12:33)
[2020-12-07] MEDS ORDERED: ASCO500T4 PO (12:33)
--- NOTE | 2020-12-07 12:34 | SNU/HH DC ---
DISCHARGE ORDERS DISCHARGE INFORMATION: FINAL DIAGNOSIS Problems Medical Problems: (1) Acute on chronic renal failure Status: Acute (2) Nausea vomiting and diarrhea Status: Acute (3) Person under investigation for COVID-19 Status: Acute (4) Urinary tract infection Status: Acute CONDITION ON DISCHARGE: Stable CODE STATUS: Code Status: Full MCFP: SNF STAY <30 DAYS: Yes HOSPICE: HOSPICE: No HOSPICE EVAL & TREAT: No LTAC: ADMIT TO LTAC: No POST DISCHARGE ORDERS: ACTIVITY ORDERS: Activity as tolerated WEIGHT BEARING STATUS: As tolerated DIET AFTER DISCHARGE: Cardiac WOUND/INCISION CARE: Ice to area for comfort, No wound care needed CHECKS AFTER DISCHARGE: CHECKS AFTER DISCHARGE: Check blood press - daily, Check blood sugar, ac/hs FOLLOW-UP: PHYSICIAN FOLLOW-UP: [facility]cvp [facility] TREATMENT/EQUIPMENT ORDERS: ADAPTIVE EQUIPMENT NEEDED: None, Front wheeled walker Physical Therapy For: Evalulation/Treatment Occupational Therapy For: Evaluation/Treatment DISCHARGE MEDICATIONS: Home Meds Active Scripts Cholecalciferol (Vitamin D3) (Vitamin D3) 125 Mcg Capsule, 5000 UNIT PO DAILY for supplement for 30 Days, #30 CAP Prov:JAIRO CHRISTENSEN MD 12/07/20 Ascorbic Acid (VITAMIN C) 500 Mg Tablet, 500 MG PO DAILY for supplement for 30 Days, #30 TAB Prov:JAIRO CHRISTENSEN MD 12/07/20 Nystatin (NYAMYC) 15 Gm Powder, 1 KT TP BID for rash for 30 Days, #30 MISC Prov:JAIRO CHRISTENSEN MD 12/07/20 Insulin Lispro (Admelog) 100 Unit/1 Ml Vial, 0 UNITS SQ TIDWMEALS for diabetes for 30 Days, #2 EACH Prov:JAIRO CHRISTENSEN MD 12/07/20 Lactobacillus Rhamnosus Gg (CULTURELLE) 1 Each Cap.sprink, 1 CAP PO BID for supplement for 30 Days, #60 CAP Prov:JAIRO CHRISTENSEN MD 12/07/20 Famotidine (FAMOTIDINE) 20 Mg Tablet, 20 MG PO BID for gerd for 30 Days, #60 TAB Prov:JAIRO CHRISTENSEN MD 12/07/20 Magnesium Oxide (Magnesium Oxide) 400 Mg Tablet, 400 MG PO BID for supplement for 10 Days, #20 TAB Prov:JAIRO CHRISTENSEN MD 12/07/20 Zinc Sulfate (ORAZINC) 220 Mg Capsule, 220 MG PO DAILY for supplement for 30 Days, #30 CAP Prov:JAIRO CHRISTENSEN MD 12/07/20 Enoxaparin Sodium (ENOXAPARIN SODIUM) 40 Mg/0.4 Ml Disp.syrin, 40 MG SQ BID for dvt prophylaxis for 10 Days, #20 DIS.SYR Prov:JAIRO CHRISTENSEN MD 12/07/20 Reported Medications Levothyroxine Sodium (LEVOTHYROXINE SODIUM) 200 Mcg Tablet, 2 TAB PO DAILY for UKN, #30 TAB 5 Refills 06/17/20 Fluoxetine Hcl (FLUOXETINE HCL) 20 Mg Capsule, 20 MG PO DAILY for depression for 90 Days, #90 11/19/19 Insulin Glargine,Hum.rec.anlog (LANTUS SOLOSTAR) 100 Unit/1 Ml Insuln.pen, 20 UNIT SQ QHS for BS HIGH, #15 ML 5 Refills 05/28/19 Sennosides/Docusate Sodium (SENOKOT-S TABLET) 1 Each Tablet, 1 EACH PO PRN DAILY PRN for CONSTIPATION, TAB 05/28/19 Diphenhydramine Hcl (BENADRYL) 25 Mg Capsule, 25 MG PO PRN QHS PRN for INSOMNIA, CAP 05/28/19 Acetaminophen (ACETAMINOPHEN) 500 Mg Tablet, 500 MG PO PRN Q6HRS PRN for PAIN, TAB 05/28/19 Spironolactone (SPIRONOLACTONE) 25 Mg Tablet, 25 MG PO DAILY for HYPERTENSION,DIURETIC, TAB 05/28/19 Docusate Sodium (COLACE) 100 Mg Capsule, 100 MG PO PRN DAILY PRN for CONSTIPATION, CAP 05/28/19 Carvedilol (COREG) 25 Mg Tablet, 12.5 MG PO BIDWMEALS for CARDIAC, TAB 05/28/19 Nitroglycerin (NITROSTAT) 0.4 Mg Tab.subl, 0.4 MG SL PRN Q5MIN PRN for CHEST PAIN, BOTTLE 05/28/19 Hydrocodone Bit/Acetaminophen (HYDROCODONE-APAP 7.5-325 ) 1 Tab Tablet, 1 TAB PO PRN TID PRN for PAIN, TAB 0 Refills 05/28/19 Discontinued Reported Medications Insulin Lispro (HUMALOG) 100 Unit/1 Ml Vial, 10 UNIT SQ TID for DM, VIAL 06/17/20 Amoxicillin/Potassium Clav (AUGMENTIN 085125 TABLET) 1 Each Tablet, 1 TAB PO BID for PNEUMONIA for 10 Days, #20 TAB 0 Refills 06/17/20 Discontinued Scripts Insulin Aspart (NOVOLOG FLEXPEN) 100 Unit/1 Ml Insuln.pen, 100 UNIT SQ TID PRN PRN for hyperglycemia, #900 UNITS Prov:JAYDE CLARK MD 04/04/14 JAIRO CHRISTENSEN MD Dec 07, 2020 12:34
--- NOTE | 2020-12-07 14:03 | NUR ---
[facility]00 [facility] [place] [facility] called me and received report at [phone], I faxed over a current med list for the pt to [facility]. Momo Allen RN
[2020-12-07 14:58] VITALS: BP 143/52
[2020-12-07 16:50] VITALS: BP 143/52
--- NOTE | 2020-12-07 17:38 | NUR ---
pt was picked up by medical transportation at 1720. gave packet of paperwork to transport person and she was wheeled out to the van. Momo Allen RN
== END 2020-12-07 17:39 | DRG 177 ==
LOC: ER 17:33 → 6 SOUTH 21:42
PROVIDERS: ADMIT Family Medicine; ATTEND Family Medicine
PROC: 3E0U33Z Introduction of Anti-inflammatory into Joints, Percutaneous Approach (ICD-10-PCS; principal; 2020-12-06)
PROC: 3E0U3BZ Introduction of Anesthetic Agent into Joints, Percutaneous Approach (ICD-10-PCS; 2020-12-06)
DX: U07.1 COVID-19 (principal); N17.0 Acute kidney failure with tubular necrosis; E43 Unspecified severe protein-calorie malnutrition; N39.0 Urinary tract infection, site not specified; Z68.42 Body mass index [BMI] 45.0-49.9, adult; I12.9 Hypertensive chronic kidney disease with stage 1 through stage 4 chronic kidney disease, or unspecified chronic kidney disease; M17.12 Unilateral primary osteoarthritis, left knee; D50.9 Iron deficiency anemia, unspecified; E03.9 Hypothyroidism, unspecified; E11.22 Type 2 diabetes mellitus with diabetic chronic kidney disease; E66.01 Morbid (severe) obesity due to excess calories; E78.00 Pure hypercholesterolemia, unspecified; E78.5 Hyperlipidemia, unspecified; E83.42 Hypomagnesemia; N18.9 Chronic kidney disease, unspecified; Z82.49 Family history of ischemic heart disease and other diseases of the circulatory system; Z83.3 Family history of diabetes mellitus; Z87.891 Personal history of nicotine dependence; Z90.49 Acquired absence of other specified parts of digestive tract; Z91.81 History of falling; Z95.5 Presence of coronary angioplasty implant and graft; I25.2 Old myocardial infarction; Z88.8 Allergy status to other drugs, medicaments and biological substances
CPT/HCPCS: 36415; 70450; 71045; 73562; 80053; 80307; 81001; 82553; 82962; 83540; 83550; 83605; 83690; 83735; 83880; 84145; 84443; 84484; 85025; 85610; 85730; 87040; 87086; 87804; 90471; 90686; 93005; 96374; 96376; J0696; J1650; J1815; J2270; J3475; J7030; U0003; 97110-GP; 97116-GP; 97530-GO; 97530-GP; 97535-GO; 99285-25; G0378

== ENCOUNTER 2021-01-05 20:40 | Inpatient (IN) | payer MEDICARE ==
[~2021-01-05] VITALS: Ht 170.2 cm; Wt 133.4 kg
[~2021-01-05 20:40] MED LIST changes: +ASCO500T4 PO; +CHOL500051 PO; +ENOX40DI3 SQ; +INSU100V35 SQ; +LACT1CAP19 PO; +MAGN400T44 PO; +NYST15PO2 TP; +ZINC220C2 PO
[2021-01-05 21:45] LABS: BILIRUBIN,URINE SMALL (NEG); CLARITY,URINE TURBID; COLOR,URINE YELLOW; NITRITE,URINE NEGATIVE (NEG); PROTEIN,URINE 100 mg/dL (NEG-TRACE)
[2021-01-05 21:49] LABS: PROTHROMBIN TIME PATIENT 15.6 SEC (11.7-14.0)
[2021-01-05 21:51] LABS: BACTERIA,URINE MANY /HPF (0-FEW); WBC,URINE TNTC /HPF (0-4)
[2021-01-05 21:57] LABS: ALBUMIN 2.3 g/dL (3.4-5.0); ALBUMIN/GLOBULIN RATIO 0.4 (1.0-1.7); CALCIUM 10.2 mg/dL (8.5-10.1); CREATININE 1.8 mg/dL (0.6-1.0); GFR 27.3; POTASSIUM 4.4 mmol/L (3.5-5.1); TOTAL BILIRUBIN 0.5 mg/dL (0.2-1.0); TOTAL PROTEIN 7.7 g/dL (6.4-8.2)
[2021-01-05] MEDS ORDERED: VANCOMYCIN 2 GM in IV NORMAL SALINE 500ML BAG 500 ML IV ONE (22:00)
[2021-01-05] MEDS ORDERED: IV NORMAL SALINE 1000ML BAG 1,000 ML IV ONE (22:00)
[2021-01-05] MEDS ORDERED: PIPERACILLIN/TAZOBACTAM 4.5 GM in IV NORMAL SALINE 100ML 100 ML IV ONE (22:00)
--- NOTE | 2021-01-05 22:05 | RAD ---
Exam: Chest one view INDICATION: Weakness TECHNIQUE: Frontal view of the chest Comparisons: 12/02/2020 FINDINGS: The cardiomediastinal silhouette and pulmonary vessels are within normal limits. The lung and pleural spaces are clear. IMPRESSION: No acute cardiopulmonary process. Electronically signed by: Andrés Doran MD (01/05/2021 10:03 PM) [facility]
--- NOTE | 2021-01-05 22:05 | RAD ---
Exam: CT head INDICATION: Altered mental status TECHNIQUE: Sequential axial images through the head were obtained without the administration of IV co ntrast. Comparisons: 12/02/2020 FINDINGS: No focal parenchymal lesion or hemorrhage is identified. There is no midline shift or sulcal effaceme nt. Patchy evidence in the periventricular white matter. No acute vascular territory infarction is identi fied. Parks-white distinction is preserved. The ventricular system is within normal limits without compression hydrocephalus. The basal cisterns are well maintained. The visualized portions of the paranasal sinuses and mastoid air cells are well-pneumatized. No acute fractures. IMPRESSION: No acute intracranial abnormality. Exposure: One or more of the following in the visualized dose reduction techniques were utilized for this examination: 1. Automated exposure control 2. Adjustment of the MA and/or KV according to patient size Use of iterative of reconstructive technique Electronically signed by: Andrés Doran MD (01/05/2021 10:03 PM) [facility]
[2021-01-05 22:16] LABS: D-DIMER 3.1 ug/mlFEU (0.00-0.50)
[2021-01-05 22:20] LABS: BASO % 0 % (0-3); EOS % 0 % (0-3); HEMATOCRIT 31.6 % (36.0-47.0); HEMOGLOBIN 9.9 g/dL (12.0-15.5); LYMPH # 1.6 x10^3/uL (1.0-4.8); LYMPH % 8 % (24-48); MEAN CORPUSCULAR HEMOGLOBIN 24 pg (25-35); MEAN CORPUSCULAR HGB CONC 31 g/dL (31-37); MEAN CORPUSCULAR VOLUME 77 fL (79-100); MONO # 0.8 x10^3/uL (0.0-1.1); MONO % 4 % (0-9); NEUT # 18.3 x10^3/uL (1.8-7.7); NEUT % 88 % (31-73); PLATELET COUNT 302 x10^3/uL (140-400); RED BLOOD COUNT 4.11 x10^6/uL (3.50-5.40); RED CELL DISTRIBUTION WIDTH 15.6 % (11.5-14.5); WHITE BLOOD COUNT 20.7 x10^3/uL (4.0-11.0)
[2021-01-05 22:44] LABS: % BASOS 1 % (0-3); % LYMPHS 3 % (24-48); % METAS 1 % (0-0); % MONOS 3 % (0-10); % MYELOS 1 % (0-0); % SEGS 91 % (35-66); PLT ESTIMATE ADEQUATE (ADEQUATE); POLYCHROMASIA SLIGHT
[2021-01-05] MEDS ORDERED: CONTRAST GIVEN. MC PRN (22:45)
[2021-01-05 22:46] LABS: TOXIC GRANULATION MOD
[2021-01-05] MEDS ORDERED: IOHEXOL 300 MG/ML 100ML VIAL. IV ONE (23:00)
--- NOTE | 2021-01-06 00:08 | RAD ---
CTA of the chest abdomen and pelvis with contrast 01/05/2021 CLINICAL HISTORY: Fever, elevated d-dimer, chest pain and abdominal pain. TECHNIQUE: After the intravenous administration of 75 cc of Omnipaque 350, contiguous, 0.625 mm axial sections were obtained through the chest, abdomen and pelvis. 2 mm reconstructed axial images of the chest and 5 mm axial images of the abdomen and pelvis were obtained. 3-D MIP sagittal and coronal re constructed images of the chest, abdomen and pelvis were obtained. One or more of the following individualized dose reduction techniques were utilized for this study: 1. Automated exposure control. 2. Adjustment of the mA and/or kV according to patient size. 3. Use of iterative reconstruction technique. FINDINGS: Comparison is made to portable chest radiograph performed earlier today. Atherosclerotic calcification of the thoracic aorta and its branches is noted. The thoracic aorta is tortuous but tapers normally. No dissection or aneurysm is seen. The origins of the brachiocephalic, left common carotid and subclavian arteries from the thoracic aortic arch are patent. The heart is no rmal in size. Scattered coronary artery calcifications are noted. The pulmonary arteries are suboptim ally opacified with contrast limiting their evaluation. No obvious filling defect is seen. Minimal dependent subsegmental atelectasis is seen involving both lungs. No area of consolidation is seen. No pneumothorax or pleural effusion is noted. The liver, spleen, pancreas, and right adrenal gland are within normal limits. A 2.6 cm rounded low-a ttenuation lesion is involving left adrenal gland which likely represents an adrenal adenoma. Rounded low-attenuation lesions are seen involving both kidneys, left greater than right. These measure 5 mm to 1 cm in size. They likely represent cysts. No further imaging evaluation is recommended. There are two large midline ventral hernia which contain nondilated small and large bowel loops. No f ree fluid or free air is within the abdomen. Surgical clips are seen throughout the left upper quadra nt of the abdomen. Surgical clips are seen within the gallbladder fossa consistent with a cholecystec aamir. There is no evidence of bowel obstruction. No free fluid or free air is seen within the abdomen . Atherosclerotic calcification abdominal aorta and its branches is noted. The abdominal aorta tapers n ormally. The origins of the celiac trunk and superior mesenteric artery are patent. Solitary renal ar teries are seen bilaterally. They appear to be patent. Images through the pelvis demonstrate the urinary bladder distended with contrast and urine. A small amount of air is seen within the urinary bladder which is presumably related to recent catheterizatio n. Scattered diverticula are seen involving the sigmoid colon. No inflammatory changes are seen adjac ent fat. No adnexal mass is seen. No free fluid is noted. Surgical clips are seen within the pelvis. Atherosclerotic calcification of the common iliac arteries and their branches is seen. No area stenos is or occlusion is visualized. Minimal S-shaped curvature of the thoracolumbar spine is seen. Degenerative changes are seen involvin g lower thoracic and throughout the lumbar spine along with both hips. IMPRESSION: No acute abnormality is seen. Electronically signed by: Jorge L Bermudez MD (01/06/2021 12:06 AM) [id number]
--- NOTE | 2021-01-06 00:24 | PHYS DOC ---
Past Medical History Past Medical History: Diabetes-Type II, High Cholesterol, Hypertension, VA, Other Additional Past Medical Histor: HEART STENTS Past Surgical History: Appendectomy, Cholecystectomy, Tonsillectomy Additional Past Surgical Histo: CARDIAC STENTS Smoking Status: Former Smoker Alcohol Use: Rarely Drug Use: None Adult General Chief Complaint Chief Complaint: WEAKNESS/GENERALIZED HPI HPI Patient is a 75 year old female with a past medical history of hypertension, hyperlipidemia and diabetes now presents emergency department for weakness and apparent failure to thrive. According to family the patient has not been able to have any significant oral intake over the last 48 hours. Patient had 1 progressively weak having decreased appetite and decreased ability to move and decreased general strength. No focal weakness or numbness. Patient unable to provide any significant history due to weakness and altered mental status. No known fevers chills, nausea vomiting or diarrhea. Review of Systems Review of Systems Constitutional: Denies fever or chills [] Eyes: Denies change in visual acuity, redness, or eye pain [] HENT: Denies nasal congestion or sore throat [] Respiratory: Denies cough or shortness of breath [] Cardiovascular: No additional information not addressed in HPI [] GI: Denies abdominal pain, nausea, vomiting, bloody stools or diarrhea [] : Denies dysuria or hematuria [] Musculoskeletal: Denies back pain or joint pain [] Integument: Denies rash or skin lesions [] Neurologic: Denies headache, focal weakness or sensory changes [] Endocrine: Denies polyuria or polydipsia [] All other systems were reviewed and found to be within normal limits, except as documented in this note. Current Medications Current Medications Current Medications Medications (Trade) Dose Ordered Sig/Natasha Start Time Stop Time Status Last Admin Dose Admin Info (CONTRAST GIVEN -- Rx MONITORING) 1 each PRN DAILY PRN 01/05/21 22:45 01/07/21 22:44 Iohexol (Omnipaque 300 Mg/ml) 60 ml 1X ONCE 01/05/21 23:00 01/05/21 23:01 DC Iohexol (Omnipaque 350 Mg/ml) 75 ml 1X ONCE 01/06/21 00:30 01/06/21 00:31 Piperacillin Sod/ Tazobactam Sod 4.5 gm/Sodium Chloride 100 ml @ 200 mls/hr 1X ONCE 01/05/21 22:00 01/05/21 22:29 DC 01/05/21 22:04 200 MLS/HR Sodium Chloride 1,000 ml @ 1,000 mls/hr 1X ONCE 01/05/21 22:00 01/05/21 22:59 DC 01/05/21 22:04 1,000 MLS/HR Vancomycin HCl (Vanco Per Pharmacy) 1 each PRN DAILY PRN 01/05/21 21:30 Vancomycin HCl 2 gm/Sodium Chloride 500 ml @ 250 mls/hr 1X ONCE 01/05/21 22:00 01/05/21 23:59 DC 01/05/21 22:04 250 MLS/HR Allergies Allergies Allergies Coded Allergies Type Severity Reaction Last Updated Verified hydrochlorothiazide Allergy Intermediate Swelling 04/03/14 Yes valsartan Allergy Intermediate Swelling 04/03/14 Yes I S O L A T I O N *CONTACT* Allergy Unknown 12/07/19 Yes Physical Exam Physical Exam Constitutional: Cachectic, well nourished, no acute distress, non-toxic appearance. [] HENT: Normocephalic, atraumatic, bilateral external ears normal, oropharynx moist, no oral exudates, nose normal. [] Eyes: PERRLA, EOMI, conjunctiva normal, no discharge. [] Neck: Normal range of motion, no tenderness, supple, no stridor. [] Cardiovascular:Heart rate regular rhythm, no murmur [] Lungs & Thorax: Bilateral breath sounds clear to auscultation [] Abdomen: Bowel sounds normal, soft, no tenderness, no masses, no pulsatile mas ses. [] Skin: Warm, dry, no erythema, no rash. [] Back: No tenderness, no CVA tenderness. [] Extremities: No tenderness, no cyanosis, no clubbing, ROM intact, no edema. [] Neurologic: , normal motor function, normal sensory function, no focal deficits noted. [] Psychologic: unable to assess. [] Current Patient Data Vital Signs Vital Signs Date Time Temp Pulse Resp B/P (MAP) Pulse Ox O2 Delivery O2 Flow Rate FiO2 01/05/21 20:45 98.8 90 18 142/65 (90) 96 Room Air 98.8 Lab Values Laboratory Tests Test 01/05/21 21:04 01/05/21 22:14 Prothrombin Time 15.6 SEC (11.7-14.0) H Prothrombin Time INR 1.3 (0.8-1.1) H Activated Partial Thromboplast Time 37 SEC (24-38) Fibrinogen 800 mg/dL (200-440) H D-Dimer (Aliya) 3.10 ug/mlFEU (0.00-0.50) H Urine Collection Type U cath Urine Color Yellow Urine Clarity Turbid Urine pH 5.0 (<5.0-8.0) Urine Specific [place] 1.020 (1.000-1.030) Urine Protein 100 mg/dL (NEG-TRACE) Urine Glucose (UA) >=1000 mg/dL (NEG) Urine Ketones (Stick) 15 mg/dL (NEG) Urine Blood Large (NEG) Urine Nitrite Negative (NEG) Urine Bilirubin Small (NEG) Urine Urobilinogen Dipstick 1.0 mg/dL (0.2 mg/dL) Urine Leukocyte Esterase Large (NEG) Urine RBC 11-20 /HPF (0-2) Urine WBC Tntc /HPF (0-4) Urine Squamous Epithelial Cells Few /LPF Urine Transitional Epithelial Cells Occ /LPF Urine Bacteria Many /HPF (0-FEW) Urine Mucus Marked /LPF Sodium Level 130 mmol/L (136-145) L Potassium Level 4.4 mmol/L (3.5-5.1) Chloride Level 92 mmol/L (98-107) L Carbon Dioxide Level 22 mmol/L (21-32) Anion Gap 16 (6-14) H Blood Urea Nitrogen 32 mg/dL (7-20) H Creatinine 1.8 mg/dL (0.6-1.0) H Estimated GFR (Cockcroft-Gault) 27.3 BUN/Creatinine Ratio 18 (6-20) Glucose Level 431 mg/dL (70-99) H Lactic Acid Level 5.3 mmol/L (0.4-2.0) *H Calcium Level 10.2 mg/dL (8.5-10.1) H Total Bilirubin 0.5 mg/dL (0.2-1.0) Aspartate Amino Transferase (AST) 19 U/L (15-37) Alanine Aminotransferase (ALT) 23 U/L (14-59) Alkaline Phosphatase 192 U/L (46-116) H Creatine Kinase 43 U/L (26-192) Total Protein 7.7 g/dL (6.4-8.2) Albumin 2.3 g/dL (3.4-5.0) L Albumin/Globulin Ratio 0.4 (1.0-1.7) L Amylase Level 23 U/L (25-115) L Lipase 48 U/L (73-393) L Procalcitonin 0.71 ng/mL (0.00-0.10) H White Blood Count 20.7 x10^3/uL (4.0-11.0) H Red Blood Count 4.11 x10^6/uL (3.50-5.40) Hemoglobin 9.9 g/dL (12.0-15.5) L Hematocrit 31.6 % (36.0-47.0) L Mean Corpuscular Volume 77 fL (79-100) L Mean Corpuscular Hemoglobin 24 pg (25-35) L Mean Corpuscular Hemoglobin Concent 31 g/dL (31-37) Red Cell Distribution Width 15.6 % (11.5-14.5) H Platelet Count 302 x10^3/uL (140-400) Neutrophils (%) (Auto) 88 % (31-73) H Lymphocytes (%) (Auto) 8 % (24-48) L Monocytes (%) (Auto) 4 % (0-9) Eosinophils (%) (Auto) 0 % (0-3) Basophils (%) (Auto) 0 % (0-3) Neutrophils # (Auto) 18.3 x10^3/uL (1.8-7.7) H Lymphocytes # (Auto) 1.6 x10^3/uL (1.0-4.8) Monocytes # (Auto) 0.8 x10^3/uL (0.0-1.1) Eosinophils # (Auto) 0.0 x10^3/uL (0.0-0.7) Basophils # (Auto) 0.0 x10^3/uL (0.0-0.2) Segmented Neutrophils % 91 % (35-66) H Lymphocytes % 3 % (24-48) L Monocytes % 3 % (0-10) Basophils % 1 % (0-3) Metamyelocytes % 1 % (0-0) H Myelocytes % 1 % (0-0) H Toxic Granulation Mod Platelet Estimate Adequate (ADEQUATE) Polychromasia Slight Ammonia 25 mcmol/L (11-34) Laboratory Tests 01/05/21 22:14 Laboratory Tests 01/05/21 21:04 EKG EKG [] Radiology/Procedures Radiology/Procedures CTA of the chest abdomen and pelvis with contrast 01/05/2021 CLINICAL HISTORY: Fever, elevated d-dimer, chest pain and abdominal pain. TECHNIQUE: After the intravenous administration of 75 cc of Omnipaque 350, contiguous, 0.625 mm axial sections were obtained through the chest, abdomen and pelvis. 2 mm reconstructed axial images of the chest and 5 mm axial images of the abdomen and pelvis were obtained. 3-D MIP sagittal and coronal reconstructed images of the chest, abdomen and pelvis were obtained. One or more of the following individualized dose reduction techniques were utilized for this study: 1. Automated exposure control. 2. Adjustment of the mA and/or kV according to patient size. 3. Use of iterative reconstruction technique. FINDINGS: Comparison is made to portable chest radiograph performed earlier today. Atherosclerotic calcification of the thoracic aorta and its branches is noted. The thoracic aorta is tortuous but tapers normally. No dissection or aneurysm is seen. The origins of the brachiocephalic, left common carotid and subclavian arteries from the thoracic aortic arch are patent. The heart is normal in size. Scattered coronary artery calcifications are noted. The pulmonary arteries are suboptimally opacified with contrast limiting their evaluation. No obvious filling defect is seen. Minimal dependent subsegmental atelectasis is seen involving both lungs. No area of consolidation is seen. No pneumothorax or pleural effusion is noted. The liver, spleen, pancreas, and right adrenal gland are within normal limits. A 2.6 cm rounded low-attenuation lesion is involving left adrenal gland which likely represents an adrenal adenoma. Rounded low-attenuation lesions are seen involving both kidneys, left greater than right. These measure 5 mm to 1 cm in size. They likely represent cysts. No further imaging evaluation is recommended. There are two large midline ventral hernia which contain nondilated small and large bowel loops. No free fluid or free air is within the abdomen. Surgical clips are seen throughout the left upper quadrant of the abdomen. Surgical clips are seen within the gallbladder fossa consistent with a cholecystectomy. There is no evidence of bowel obstruction. No free fluid or free air is seen within the abdomen. Atherosclerotic calcification abdominal aorta and its branches is noted. The abdominal aorta tapers normally. The origins of the celiac trunk and superior mesenteric artery are patent. Solitary renal arteries are seen bilaterally. They appear to be patent. Images through the pelvis demonstrate the urinary bladder distended with contrast and urine. A small amount of air is seen within the urinary bladder which is presumably related to recent catheterization. Scattered diverticula are seen involving the sigmoid colon. No inflammatory changes are seen adjacent fat. No adnexal mass is seen. No free fluid is noted. Surgical clips are seen within the pelvis. Atherosclerotic calcification of the common iliac arteries and their branches is seen. No area stenosis or occlusion is visualized. Minimal S-shaped curvature of the thoracolumbar spine is seen. Degenerative changes are seen involving lower thoracic and throughout the lumbar spine along with both hips. IMPRESSION: No acute abnormality is seen. Electronically signed by: Jorge L Bermudez MD (01/06/2021 12:06 AM) [id number] Course & Med Decision Making Course & Med Decision Making Pertinent Labs and Imaging studies reviewed. (See chart for details) 75f presenting with generalized weakness and failure to thrive. Patient does appear cachectic and ill-appearing. At this time will obtain full work-up to make sure there is no significant underlying infectious etiology, abdominal etio logy or other concerns. Lab work demonstrates acute leukocytosis as well as mild acute renal failure. Ferritin D-dimer also elevated and CT angiogram of the chest as well as abdomen pelvis was obtained without any significant abnormality. At this time primary concern is for COVID-19 severe infection leading to sepsis. At this time we will plan to admit the patient to the telemetry floor. IV antibiotics and fluids have already been initiated. Dragon Disclaimer Dragon Disclaimer This electronic medical record was generated, in whole or in part, using a voice recognition dictation system. Departure Departure Impression: Primary Impression: Sepsis Disposition: ADMITTED INPT THIS HOSP Condition: GUARDED Referrals: RYAN ALY MD (PCP) MICHELE DONNELLY MD Jan 06, 2021 00:24
[2021-01-06] MEDS ORDERED: MORPHINE SULFATE 4 MG/ML VIAL. IV PRN (00:30)
[2021-01-06] MEDS ORDERED: ONDANSETRON PF 4 MG/2 ML VIAL. IV PRN ×2 (00:30→13:45)
[2021-01-06] MEDS ORDERED: IOHEXOL 350 MG/ML 100 ML VIAL. IV ONE (00:30)
[2021-01-06] MEDS: VANCOMYCIN PER PHARMACY MC PRN ×2 (02:48→12:06)
--- NOTE | 2021-01-06 02:48 | NUR ---
Pharmacy Vancomycin Dosing Note S:Consulted to monitor and dose vancomycin started 01/05/21. O:ROSAURA MERAZ is a 75 year old F with Sepsis . Height: 5 feet, 7 inches Weight: 136.4 kg [place] Body Weight: 61.60 Adjusted Body Weight: 91.52 Dosing Weight: Actual Other Antibiotics: LABS: Last BUN: 32 Last Creatinine: 1.8 Creatinine Clearance: 38 mL/min Last WBC: 20.7 Last Procalcitonin: 0.71 Tmax (past 24 hours): Microbiology: I/O: Drug Levels: Last level: on at Last dose given 01/05/21 at 2200 Vancomycin Dosing: Loading Dose: 2000 mg x1 Dosing Weight: Actual Target Trough: 15-20 A: Based on: WT AND CRCL P: 1. Begin Vancomycin 2000 mg IV q24h 2. Follow up Trough level on 01/07/21 at 2130 3. Pharmacy will continue to monitor, follow and adjust therapy as needed. EDMOND OCHOA RPH, 01/06/21 0249 Signed: 01/06/21 at 0249 by EDMOND OCHOA RPH PHA
--- NOTE | 2021-01-06 03:58 | EKG ---
[facility] [address] [place] [address] Test Date: 2021-01-05 Test Time: 22:13:27 Pat Name: ROSAURA MERAZ Department: Room: Gender: F [employer]: : 1945 Requested By: MICHELE DONNELLY Order Number: [id number] Reading MD: Measurements Intervals [place] Rate: 88 P: 31 NH: 172 QRS: -2 QRSD: 82 T: 36 QT: 376 QTc: 459 Interpretive Statements SINUS RHYTHM LEFTWARD AXIS NO SPECIFIC ECG ABNORMALITIES RI6.01 No previous ECG available for comparison
[2021-01-06 06:03] LABS: INFLUENZA A PATIENT NEGATIVE (NEGATIVE); INFLUENZA B PATIENT NEGATIVE (NEGATIVE)
[2021-01-06 09:00] VITALS: BP 147/50
--- NOTE | 2021-01-06 09:00 | NUR ---
Admission questions done via paper charting.
[2021-01-06 11:00] VITALS: BP 150/84
[2021-01-06] MEDS ORDERED: FLUO20TA11 PO (11:42)
[2021-01-06] MEDS ORDERED: NYST15PO9 TP (11:42)
[2021-01-06] MEDS ORDERED: INSULIN LISPRO 300 UNITS/3 ML VIAL. SQ ONE ×2 (12:30→17:45)
[2021-01-06] MEDS ORDERED: NITROGLYCERIN SUBLINGUAL 0.4 MG BOTTLE OF 25. SL PRN (13:45)
[2021-01-06] MEDS ORDERED: PIP/TAZO PER PHARMACY MC PRN (13:45)
[2021-01-06] MEDS ORDERED: SENNOSIDES/DOCUSATE 8.6/50MG TABLET. PO PRN (13:45)
--- NOTE | 2021-01-06 14:01 | PDOC1 ---
History and Physical Date of Admission Date of Admission DATE: 01/06/21 TIME: 13:24 Identification/Chief Complaint Chief Complaint Weakness, multiple falls Source Source: Chart review, Patient History of Present Illness History of Present Illness Ms Kenney is a 74yo F w/ PMHx DM2, HLD, HTN, CAD s/p stenting who p/w weakness and apparent failure to thrive. According to family the patient has not been able to have any significant oral intake over the last 48 hours prior to admission. Patient had become progressively weak having decreased appetite and decreased ability to move and decreased general strength. She was just discharged from acute rehab 1 week prior to arrival. No focal weakness or numbness. Patient unable to provide any significant history due to weakness and altered mental status. No known fevers chills, nausea vomiting or diarrhea. She does c/o headache and left hip pain, but no other history is obtained due to confusion EKG with no ST segment T wave changes, left axis deviation. CT head with no acute abnormality. Chest radiograph with no acute abnormality. CT angiogram chest abdomen pelvis with no acute abnormality. Labs with WBC 20.7, Hb 9.9, platelets 302, NA 130, K4.4, BUN 32, CR 1.8, glucose 431, INR 1.3, calcium 10.2, lactic acid 5.3, lipase 48, albumin 2.3, procalcitonin 0.71. UA with positive leuk esterase Admitted for further care Past Medical History Cardiovascular: HTN, Hyperlipidemia Endocrine: Diabetes, Hypothyroidism Past Surgical History Past Surgical History: Appendectomy, Cholecystectomy, Tonsillectomy Family History Family History: Diabetes, Hypertension Social History Smoke: No ALCOHOL: none Drugs: None Current Problem List Problem List Problems Medical Problems: (1) Sepsis Status: Acute Current Medications Current Medications Current Medications Piperacillin Sod/ Tazobactam Sod 4.5 gm/Sodium Chloride 100 ml @ 200 mls/hr 1X ONCE IV Last administered on 01/05/21at 22:04; Start 01/05/21 at 22:00; Stop 01/05/21 at 22:29; Status DC Vancomycin HCl (Vanco Per Pharmacy) 1 each PRN DAILY PRN MC SEE COMMENTS Last administered on 01/06/21at 12:06; Start 01/05/21 at 21:30 Sodium Chloride 1,000 ml @ 1,000 mls/hr 1X ONCE IV Last administered on 01/05/21at 22:04; Start 01/05/21 at 22:00; Stop 01/05/21 at 22:59; Status DC Vancomycin HCl 2 gm/Sodium Chloride 500 ml @ 250 mls/hr 1X ONCE IV Last administered on 01/05/21at 22:04; Start 01/05/21 at 22:00; Stop 01/05/21 at 23:59; Status DC Iohexol (Omnipaque 300 Mg/ml) 60 ml 1X ONCE IV ; Start 01/05/21 at 23:00; Stop 01/05/21 at 23:01; Status DC Info (CONTRAST GIVEN -- Rx MONITORING) 1 each PRN DAILY PRN MC SEE COMMENTS; Start 01/05/21 at 22:45; Stop 01/07/21 at 22:44 Iohexol (Omnipaque 350 Mg/ml) 75 ml 1X ONCE IV Last administered on 01/05/21at 23:05; Start 01/06/21 at 00:30; Stop 01/06/21 at 00:31; Status DC Ondansetron HCl (Zofran) 4 mg PRN Q8HRS PRN IV NAUSEA/VOMITING 1ST CHOICE; Start 01/06/21 at 00:30; Stop 01/07/21 at 00:29 Morphine Sulfate (Morphine Sulfate) 4 mg PRN Q2HR PRN IV SEVERE PAIN 7-10; Start 01/06/21 at 00:30; Stop 01/07/21 at 00:29 Vancomycin HCl 2 gm/Sodium Chloride 500 ml @ 250 mls/hr Q24H IV ; Start 01/06/21 at 22:00 Vancomycin HCl (Vancomycin Trough Level) 1 each 1X ONCE MC ; Start 01/07/21 at 21:30; Stop 01/07/21 at 21:31 Insulin Human Lispro (HumaLOG) 17 units 1X ONCE SQ Last administered on 01/06/21at 12:36; Start 01/06/21 at 12:30; Stop 01/06/21 at 12:31; Status DC Active Scripts Active Admelog (Insulin Lispro) 100 Unit/1 Ml Vial 0 Units SQ TIDWMEALS 30 Days Famotidine 20 Mg Tablet 20 Mg PO BID 30 Days Reported Fluoxetine Hcl 20 Mg Tablet 20 Mg PO HS Nystatin 15 Gm Powder 1 Wendie TP PRN BID PRN 7 Days apply to affected area(s) Levothyroxine Sodium 200 Mcg Tablet 2 Tab PO DAILY Lantus Solostar (Insulin Glargine,Hum.rec.anlog) 100 Unit/1 Ml Insuln.pen 20 Unit SQ QHS Senokot-S Tablet (Sennosides/Docusate Sodium) 1 Each Tablet 1 Each PO PRN DAILY PRN Benadryl (Diphenhydramine Hcl) 25 Mg Capsule 25 Mg PO PRN QHS PRN Coreg (Carvedilol) 25 Mg Tablet 12.5 Mg PO BIDWMEALS Nitrostat (Nitroglycerin) 0.4 Mg Tab.subl 0.4 Mg SL PRN Q5MIN PRN Allergies Allergies: Coded Allergies: hydrochlorothiazide (Verified Allergy, Intermediate, Swelling, 04/03/14) valsartan (Verified Allergy, Intermediate, Swelling, 04/03/14) I S O L A T I O N *CONTACT* (Verified Allergy, Unknown, 12/07/19) vre ROS Review of System Unable to complete due to confusion Physical Exam General: Alert, Cooperative, moderate distress HEENT: PERRLA, EOMI, Mucous membr. moist/pink, Other (right eye bruising) Lungs: Clear to auscultation, Normal air movement Heart: S1S2, RRR, no thrills, no rubs, no gallops, no murmurs Abdomen: Normal bowel sounds, Soft, No tenderness, No hepatosplenomegaly, No masses Rectal Exam: not examined Extremities: No clubbing, No cyanosis, No edema, Normal pulses, No tenderness/swelling Skin: No rashes, No breakdown, No significant lesion Neuro: Normal speech, Strength at 5/5 X4 ext, Normal tone, Sensation intact, Cranial nerves 3-12 NL, Reflexes 2+ Psych/Mental Status: Other (Confused) Vitals Vitals Vital Signs Date Time Temp Pulse Resp B/P (MAP) Pulse Ox O2 Delivery O2 Flow Rate FiO2 01/06/21 11:00 97.2 72 20 150/84 (106) 94 Room Air 97.2 Labs Labs Laboratory Tests Test 01/05/21 21:04 01/05/21 22:14 01/06/21 00:29 01/06/21 05:25 Prothrombin Time 15.6 SEC (11.7-14.0) Prothromb Time International Ratio 1.3 (0.8-1.1) Activated Partial Thromboplast Time 37 SEC (24-38) Fibrinogen 800 mg/dL (200-440) D-Dimer (Aliya) 3.10 ug/mlFEU (0.00-0.50) Urine Collection Type U cath Urine Color Yellow Urine Clarity Turbid Urine pH 5.0 (<5.0-8.0) Urine Specific [place] 1.020 (1.000-1.030) Urine Protein 100 mg/dL (NEG-TRACE) Urine Glucose (UA) >=1000 mg/dL (NEG) Urine Ketones (Stick) 15 mg/dL (NEG) Urine Blood Large (NEG) Urine Nitrite Negative (NEG) Urine Bilirubin Small (NEG) Urine Urobilinogen Dipstick 1.0 mg/dL (0.2 mg/dL) Urine Leukocyte Esterase Large (NEG) Urine RBC 11-20 /HPF (0-2) Urine WBC Tntc /HPF (0-4) Urine Squamous Epithelial Cells Few /LPF Urine Transitional Epithelial Cells Occ /LPF Urine Bacteria Many /HPF (0-FEW) Urine Mucus Marked /LPF Sodium Level 130 mmol/L (136-145) Potassium Level 4.4 mmol/L (3.5-5.1) Chloride Level 92 mmol/L (98-107) Carbon Dioxide Level 22 mmol/L (21-32) Anion Gap 16 (6-14) Blood Urea Nitrogen 32 mg/dL (7-20) Creatinine 1.8 mg/dL (0.6-1.0) Estimated GFR (Cockcroft-Gault) 27.3 BUN/Creatinine Ratio 18 (6-20) Glucose Level 431 mg/dL (70-99) Lactic Acid Level 5.3 mmol/L (0.4-2.0) 1.4 mmol/L (0.4-2.0) Calcium Level 10.2 mg/dL (8.5-10.1) Total Bilirubin 0.5 mg/dL (0.2-1.0) Aspartate Amino Transf (AST/SGOT) 19 U/L (15-37) Alanine Aminotransferase (ALT/SGPT) 23 U/L (14-59) Alkaline Phosphatase 192 U/L (46-116) Creatine Kinase 43 U/L (26-192) Total Protein 7.7 g/dL (6.4-8.2) Albumin 2.3 g/dL (3.4-5.0) Albumin/Globulin Ratio 0.4 (1.0-1.7) Amylase Level 23 U/L (25-115) Lipase 48 U/L (73-393) Procalcitonin 0.71 ng/mL (0.00-0.10) White Blood Count 20.7 x10^3/uL (4.0-11.0) Red Blood Count 4.11 x10^6/uL (3.50-5.40) Hemoglobin 9.9 g/dL (12.0-15.5) Hematocrit 31.6 % (36.0-47.0) Mean Corpuscular Volume 77 fL (79-100) Mean Corpuscular Hemoglobin 24 pg (25-35) Mean Corpuscular Hemoglobin Concent 31 g/dL (31-37) Red Cell Distribution Width 15.6 % (11.5-14.5) Platelet Count 302 x10^3/uL (140-400) Neutrophils (%) (Auto) 88 % (31-73) Lymphocytes (%) (Auto) 8 % (24-48) Monocytes (%) (Auto) 4 % (0-9) Eosinophils (%) (Auto) 0 % (0-3) Basophils (%) (Auto) 0 % (0-3) Neutrophils # (Auto) 18.3 x10^3/uL (1.8-7.7) Lymphocytes # (Auto) 1.6 x10^3/uL (1.0-4.8) Monocytes # (Auto) 0.8 x10^3/uL (0.0-1.1) Eosinophils # (Auto) 0.0 x10^3/uL (0.0-0.7) Basophils # (Auto) 0.0 x10^3/uL (0.0-0.2) Segmented Neutrophils % 91 % (35-66) Lymphocytes % 3 % (24-48) Monocytes % 3 % (0-10) Basophils % 1 % (0-3) Metamyelocytes % 1 % (0-0) Myelocytes % 1 % (0-0) Toxic Granulation Mod Platelet Estimate Adequate (ADEQUATE) Polychromasia Slight Ammonia 25 mcmol/L (11-34) Influenza Type A Antigen Negative (NEGATIVE) Influenza Type B Antigen Negative (NEGATIVE) Test 01/06/21 11:10 Glucose (Fingerstick) 415 mg/dL (70-99) Laboratory Tests Test 01/05/21 21:04 01/05/21 22:14 01/06/21 00:29 01/06/21 05:25 Prothrombin Time 15.6 SEC (11.7-14.0) Prothromb Time International Ratio 1.3 (0.8-1.1) Activated Partial Thromboplast Time 37 SEC (24-38) Fibrinogen 800 mg/dL (200-440) D-Dimer (Aliya) 3.10 ug/mlFEU (0.00-0.50) Urine Collection Type U cath Urine Color Yellow Urine Clarity Turbid Urine pH 5.0 (<5.0-8.0) Urine Specific [place] 1.020 (1.000-1.030) Urine Protein 100 mg/dL (NEG-TRACE) Urine Glucose (UA) >=1000 mg/dL (NEG) Urine Ketones (Stick) 15 mg/dL (NEG) Urine Blood Large (NEG) Urine Nitrite Negative (NEG) Urine Bilirubin Small (NEG) Urine Urobilinogen Dipstick 1.0 mg/dL (0.2 mg/dL) Urine Leukocyte Esterase Large (NEG) Urine RBC 11-20 /HPF (0-2) Urine WBC Tntc /HPF (0-4) Urine Squamous Epithelial Cells Few /LPF Urine Transitional Epithelial Cells Occ /LPF Urine Bacteria Many /HPF (0-FEW) Urine Mucus Marked /LPF Sodium Level 130 mmol/L (136-145) Potassium Level 4.4 mmol/L (3.5-5.1) Chloride Level 92 mmol/L (98-107) Carbon Dioxide Level 22 mmol/L (21-32) Anion Gap 16 (6-14) Blood Urea Nitrogen 32 mg/dL (7-20) Creatinine 1.8 mg/dL (0.6-1.0) Estimated GFR (Cockcroft-Gault) 27.3 BUN/Creatinine Ratio 18 (6-20) Glucose Level 431 mg/dL (70-99) Lactic Acid Level 5.3 mmol/L (0.4-2.0) 1.4 mmol/L (0.4-2.0) Calcium Level 10.2 mg/dL (8.5-10.1) Total Bilirubin 0.5 mg/dL (0.2-1.0) Aspartate Amino Transf (AST/SGOT) 19 U/L (15-37) Alanine Aminotransferase (ALT/SGPT) 23 U/L (14-59) Alkaline Phosphatase 192 U/L (46-116) Creatine Kinase 43 U/L (26-192) Total Protein 7.7 g/dL (6.4-8.2) Albumin 2.3 g/dL (3.4-5.0) Albumin/Globulin Ratio 0.4 (1.0-1.7) Amylase Level 23 U/L (25-115) Lipase 48 U/L (73-393) Procalcitonin 0.71 ng/mL (0.00-0.10) White Blood Count 20.7 x10^3/uL (4.0-11.0) Red Blood Count 4.11 x10^6/uL (3.50-5.40) Hemoglobin 9.9 g/dL (12.0-15.5) Hematocrit 31.6 % (36.0-47.0) Mean Corpuscular Volume 77 fL (79-100) Mean Corpuscular Hemoglobin 24 pg (25-35) Mean Corpuscular Hemoglobin Concent 31 g/dL (31-37) Red Cell Distribution Width 15.6 % (11.5-14.5) Platelet Count 302 x10^3/uL (140-400) Neutrophils (%) (Auto) 88 % (31-73) Lymphocytes (%) (Auto) 8 % (24-48) Monocytes (%) (Auto) 4 % (0-9) Eosinophils (%) (Auto) 0 % (0-3) Basophils (%) (Auto) 0 % (0-3) Neutrophils # (Auto) 18.3 x10^3/uL (1.8-7.7) Lymphocytes # (Auto) 1.6 x10^3/uL (1.0-4.8) Monocytes # (Auto) 0.8 x10^3/uL (0.0-1.1) Eosinophils # (Auto) 0.0 x10^3/uL (0.0-0.7) Basophils # (Auto) 0.0 x10^3/uL (0.0-0.2) Segmented Neutrophils % 91 % (35-66) Lymphocytes % 3 % (24-48) Monocytes % 3 % (0-10) Basophils % 1 % (0-3) Metamyelocytes % 1 % (0-0) Myelocytes % 1 % (0-0) Toxic Granulation Mod Platelet Estimate Adequate (ADEQUATE) Polychromasia Slight Ammonia 25 mcmol/L (11-34) Influenza Type A Antigen Negative (NEGATIVE) Influenza Type B Antigen Negative (NEGATIVE) Test 01/06/21 11:10 Glucose (Fingerstick) 415 mg/dL (70-99) Images Images CT angiogram chest/abdomen/pelvis: Atherosclerotic calcification of the thoracic aorta and its branches is noted. T he thoracic aorta is tortuous but tapers normally. No dissection or aneurysm is seen. The origins of the brachiocephalic, left common carotid and subclavian arteries from the thoracic aortic arch are patent. The heart is normal in size. Scattered coronary artery calcifications are noted. The pulmonary arteries are suboptimally opacified with contrast limiting their evaluation. No obvious filling defect is seen. Minimal dependent subsegmental atelectasis is seen involving both lungs. No area of consolidation is seen. No pneumothorax or pleural effusion is noted. The liver, spleen, pancreas, and right adrenal gland are within normal limits. A 2.6 cm rounded low-attenuation lesion is involving left adrenal gland which likely represents an adrenal adenoma. Rounded low-attenuation lesions are seen involving both kidneys, left greater than right. These measure 5 mm to 1 cm in size. They likely represent cysts. No further imaging evaluation is recommended. There are two large midline ventral hernia which contain nondilated small and large bowel loops. No free fluid or free air is within the abdomen. Surgical clips are seen throughout the left upper quadrant of the abdomen. Surgical clips are seen within the gallbladder fossa consistent with a cholecystectomy. There i s no evidence of bowel obstruction. No free fluid or free air is seen within the abdomen. Atherosclerotic calcification abdominal aorta and its branches is noted. The abdominal aorta tapers normally. The origins of the celiac trunk and superior mesenteric artery are patent. Solitary renal arteries are seen bilaterally. They appear to be patent. Images through the pelvis demonstrate the urinary bladder distended with contrast and urine. A small amount of air is seen within the urinary bladder which is presumably related to recent catheterization. Scattered diverticula are seen involving the sigmoid colon. No inflammatory changes are seen adjacent fat. No adnexal mass is seen. No free fluid is noted. Surgical clips are seen within the pelvis. Atherosclerotic calcification of the common iliac arteries and their branches is seen. No area stenosis or occlusion is visualized. Minimal S-shaped curvature of the thoracolumbar spine is seen. Degenerative changes are seen involving lower thoracic and throughout the lumbar spine along with both hips. IMPRESSION: No acute abnormality is seen. Head CT: No focal parenchymal lesion or hemorrhage is identified. There is no midline shift or sulcal effacement. Patchy evidence in the periventricular white matter. No acute vascular territory infarction is identified. Parks-white distinction is preserved. The ventricular system is within normal limits without compression hydrocephalus. The basal cisterns are well maintained. The visualized portions of the paranasal sinuses and mastoid air cells are well- pneumatized. No acute fractures. IMPRESSION: No acute intracranial abnormality. Chest radiograph: The cardiomediastinal silhouette and pulmonary vessels are within normal limits. The lung and pleural spaces are clear. IMPRESSION: No acute cardiopulmonary process. VTE Prophylaxis Ordered VTE Prophylaxis Devices: Yes VTE Pharmacological Prophylaxi: Yes Assessment/Plan Assessment/Plan A/P: Acute encephalopathy - likely from UTI, metabolic Multiple falls - due to deconditioning, may need fpc placement eventually, definitely needs skilled services Weakness - due to sepsis, poor PO intake Sepsis - with urine as likely source, empiric antibiotics given Elevated alkaline phosphatase - will monitor Acute renal failurevasomotor nephropathy. will hydrate Dyslipidemia - statin UTI - will treat empirically, f/u culture results Hyponatremia - hypovolemic, will replace Severe protein calorie malnutrition - will get early nutrition Hypercalcemia - likely from dehydration, will monitor Lactic acidosis - likely Urinary incontinence - will have bladder training with OT Morbid obesity BMI 50 - counseled on weight loss Bilateral knee pain left greater than right - improved after prior injections Diabetes type 2 uncontrolled - will place on basal bolus plus regimen while hospitalized. A1c 8.5 Hypertension, controlled - cont meds Hypothyroidism - TSH WNL, will cont 200mcg levothyroxine dosing Recent COVID 19 - asymptomatic save for her diarrhea. Test administered on 06/13/2020 and repeat positive 12/02/2020. FEN - ADA diet PPX - lovenox FULL CODE Dispo -inpatient likely 2 midnights Justifications for Admission Other Justification HILDA HERNANDEZ MD Jan 06, 2021 14:01
[2021-01-06 15:44] VITALS: BP 156/61
--- NOTE | 2021-01-06 17:00 | NUR ---
SW following for discharge planning. Spoke with RN and reviewed chart. 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 Pt discharged from [facility] 12/06. Pt had multiple falls at home. Pt PUI. PT/OT to evaluate. SW following.
[2021-01-06] MEDS: CARVEDILOL 12.5 MG TABLET. PO SCH (17:02)
[2021-01-06] MEDS: PIPERACILLIN/TAZOBACTAM 2.25 GM in IV NORMAL SALINE 50ML 50 ML IV SCH ×2 (17:03→23:39)
[2021-01-06 19:00] VITALS: BP_SYST 153
[2021-01-06] MEDS: FLUoxetine HCL 20 MG CAPSULE PO SCH (20:40)
[2021-01-06] MEDS: PSYLLIUM HUSK (SUGAR FREE) 1 PKT PACKET PO SCH (20:40)
[2021-01-06] MEDS: INSULIN GLARGINE SYRINGE. SQ SCH (20:42)
[2021-01-06] MEDS ORDERED: VANCOMYCIN 2 GM in IV NORMAL SALINE 500ML BAG 500 ML IV SCH (22:00)
[2021-01-06 22:49] VITALS: BP 143/49
[2021-01-07] MEDS: PIPERACILLIN/TAZOBACTAM 2.25 GM in IV NORMAL SALINE 50ML 50 ML IV SCH ×5 (01:18→23:46)
[2021-01-07 02:46] VITALS: BP 148/52
[2021-01-07 05:17] LABS: BASO # 0.1 x10^3/uL (0.0-0.2); BASO % 0 % (0-3); EOS # 0.2 x10^3/uL (0.0-0.7); EOS % 1 % (0-3); HEMATOCRIT 27.4 % (36.0-47.0); HEMOGLOBIN 8.8 g/dL (12.0-15.5); LYMPH # 2.1 x10^3/uL (1.0-4.8); LYMPH % 13 % (24-48); MEAN CORPUSCULAR HEMOGLOBIN 24 pg (25-35); MEAN CORPUSCULAR HGB CONC 32 g/dL (31-37); MEAN CORPUSCULAR VOLUME 76 fL (79-100); MONO # 1.1 x10^3/uL (0.0-1.1); MONO % 7 % (0-9); NEUT # 12.3 x10^3/uL (1.8-7.7); NEUT % 79 % (31-73); PLATELET COUNT 229 x10^3/uL (140-400); RED BLOOD COUNT 3.61 x10^6/uL (3.50-5.40); RED CELL DISTRIBUTION WIDTH 15.6 % (11.5-14.5); WHITE BLOOD COUNT 15.7 x10^3/uL (4.0-11.0)
[2021-01-07] MEDS: LEVOTHYROXINE 100 MCG TABLET PO SCH (05:43)
[2021-01-07 05:47] LABS: ALBUMIN 1.8 g/dL (3.4-5.0); ALBUMIN/GLOBULIN RATIO 0.4 (1.0-1.7); CALCIUM 9.5 mg/dL (8.5-10.1); CREATININE 1.3 mg/dL (0.6-1.0); GFR 39.7; POTASSIUM 3.6 mmol/L (3.5-5.1); TOTAL BILIRUBIN 0.4 mg/dL (0.2-1.0); TOTAL PROTEIN 6.3 g/dL (6.4-8.2)
[2021-01-07] MEDS: CARVEDILOL 12.5 MG TABLET. PO SCH ×2 (08:00→17:29)
[2021-01-07] MEDS ORDERED: DEXTROSE 50% 25 GM / 50ML DISP.SYRIN. IV PRN ×2 (12:15→14:30)
[2021-01-07] MEDS ORDERED: INSULIN LISPRO 300 UNITS/3 ML VIAL. SQ ONE (12:15)
--- NOTE | 2021-01-07 14:23 | PDOC ---
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 will hydrate Dyslipidemia - statin UTI - will treat empirically, f/u culture results Hyponatremia - hypovolemic, will replace Severe protein calorie malnutrition - will get early nutrition Hypercalcemia - likely from dehydration, will monitor Lactic acidosis - likely Urinary incontinence - will have bladder training with OT Morbid obesity BMI 50 - counseled on weight loss Bilateral knee pain left greater than right - improved after prior injections Diabetes type 2 uncontrolled - will place on basal bolus plus regimen while hospitalized. A1c 8.5 Hypertension, controlled - cont meds Hypothyroidism - TSH WNL, will cont 200mcg levothyroxine dosing Recent COVID 19 - asymptomatic save for her diarrhea. Test administered on 06/13/2020 and repeat positive 12/02/2020. FEN - ADA diet PPX - lovenox FULL CODE Dispo -inpatient likely 2 midnights History of Present Illness History of Present Illness Ms Kenney is a 74yo F w/ PMHx DM2, HLD, HTN, CAD s/p stenting who p/w weakness and apparent failure to thrive. According to family the patient has not been able to have any significant oral intake over the last 48 hours prior to admission. Patient had become progressively weak having decreased appetite and decreased ability to move and decreased general strength. She was just discharged from acute rehab 1 week prior to arrival. No focal weakness or numbness. Patient unable to provide any significant history due to weakness and altered mental status. No known fevers chills, nausea vomiting or diarrhea. She does c/o headache and left hip pain, but no other history is obtained due to confusion EKG with no ST segment T wave changes, left axis deviation. CT head with no acute abnormality. Chest radiograph with no acute abnormality. CT angiogram chest abdomen pelvis with no acute abnormality. Labs with WBC 20.7, Hb 9.9, platelets 302, NA 130, K4.4, BUN 32, CR 1.8, glucose 431, INR 1.3, calcium 10.2, lactic acid 5.3, lipase 48, albumin 2.3, procalcitonin 0.71. UA with positive leuk esterase Admitted for further care Afebrile overnight. Urine with gram-negative rods and gram-positive cocci resembling Enterococcus. Blood cultures 1 out of 4 positive for gram-positive cocci resembling staph. She is feeling a little better less left hip pain and less headache. Vitals/I&O Vitals/I&O: Vital Signs Date Time Temp Pulse Resp B/P (MAP) Pulse Ox O2 Delivery O2 Flow Rate FiO2 01/07/21 02:46 97.9 86 19 148/52 (84) 92 Room Air 97.9 I & O 01/06/21 01/06/21 01/07/21 15:00 23:00 07:00 Intake Total 240 ml 200 ml Output Total 1 ml Balance 240 ml 199 ml Physical Exam General: Alert, Cooperative, moderate distress Lungs: Clear Abdomen: Normal bowel sounds, Soft, No tenderness, No hepatosplenomegaly, No masses Extremities: No clubbing, No cyanosis, No edema, Normal pulses, No tenderness/swelling Skin: No rashes, No breakdown, No significant lesion Labs Labs: Laboratory Tests Test 01/06/21 16:34 01/06/21 19:02 01/07/21 05:00 01/07/21 09:22 Glucose (Fingerstick) 367 mg/dL (70-99) 353 mg/dL (70-99) 205 mg/dL (70-99) White Blood Count 15.7 x10^3/uL (4.0-11.0) Red Blood Count 3.61 x10^6/uL (3.50-5.40) Hemoglobin 8.8 g/dL (12.0-15.5) Hematocrit 27.4 % (36.0-47.0) Mean Corpuscular Volume 76 fL (79-100) Mean Corpuscular Hemoglobin 24 pg (25-35) Mean Corpuscular Hemoglobin Concent 32 g/dL (31-37) Red Cell Distribution Width 15.6 % (11.5-14.5) Platelet Count 229 x10^3/uL (140-400) Neutrophils (%) (Auto) 79 % (31-73) Lymphocytes (%) (Auto) 13 % (24-48) Monocytes (%) (Auto) 7 % (0-9) Eosinophils (%) (Auto) 1 % (0-3) Basophils (%) (Auto) 0 % (0-3) Neutrophils # (Auto) 12.3 x10^3/uL (1.8-7.7) Lymphocytes # (Auto) 2.1 x10^3/uL (1.0-4.8) Monocytes # (Auto) 1.1 x10^3/uL (0.0-1.1) Eosinophils # (Auto) 0.2 x10^3/uL (0.0-0.7) Basophils # (Auto) 0.1 x10^3/uL (0.0-0.2) Sodium Level 134 mmol/L (136-145) Potassium Level 3.6 mmol/L (3.5-5.1) Chloride Level 99 mmol/L (98-107) Carbon Dioxide Level 25 mmol/L (21-32) Anion Gap 10 (6-14) Blood Urea Nitrogen 31 mg/dL (7-20) Creatinine 1.3 mg/dL (0.6-1.0) Estimated GFR (Cockcroft-Gault) 39.7 BUN/Creatinine Ratio 24 (6-20) Glucose Level 216 mg/dL (70-99) Calcium Level 9.5 mg/dL (8.5-10.1) Total Bilirubin 0.4 mg/dL (0.2-1.0) Aspartate Amino Transf (AST/SGOT) 21 U/L (15-37) Alanine Aminotransferase (ALT/SGPT) 19 U/L (14-59) Alkaline Phosphatase 149 U/L (46-116) Total Protein 6.3 g/dL (6.4-8.2) Albumin 1.8 g/dL (3.4-5.0) Albumin/Globulin Ratio 0.4 (1.0-1.7) Test 01/07/21 10:42 Glucose (Fingerstick) 286 mg/dL (70-99) Assessment and Plan Assessmemt and Plan Problems Medical Problems: (1) Sepsis Status: Acute Comment Review of Relevant I have reviewed the following items jina (where applicable) has been applied. Medications: Current Medications Medications (Trade) Dose Ordered Sig/Natasha Route PRN Reason Start Time Stop Time Status Last Admin Dose Admin Vancomycin HCl 2 gm/Sodium Chloride 500 ml @ 250 mls/hr Q24H IV 01/06/21 22:00 01/07/21 01:19 Carvedilol (Coreg) 12.5 mg BIDWMEALS PO 01/06/21 17:00 01/06/21 17:02 Fluoxetine HCl (PROzac) 20 mg HS PO 01/06/21 21:00 01/06/21 20:40 Insulin Glargine (Lantus Syringe) 20 unit QHS SQ 01/06/21 21:00 01/06/21 20:42 Psyllium Hydrophilic Mucilloid (Metamucil Fiber Packet) 1 pkt QHS PO 01/06/21 21:00 01/06/21 20:40 Levothyroxine Sodium (Synthroid) 200 mcg DAILY07 PO 01/07/21 07:00 01/07/21 05:43 Piperacillin Sod/ Tazobactam Sod 2.25 gm/Sodium Chloride 50 ml @ 100 mls/hr Q6HRS IV 01/06/21 18:00 01/07/21 05:44 Insulin Human Lispro (HumaLOG) 18 units 1X ONCE SQ 01/06/21 17:45 01/06/21 17:46 DC 01/06/21 18:10 Justifications for Admission Other Justification HILDA HERNANDEZ MD Jan 07, 2021 14:23
--- NOTE | 2021-01-07 14:24 | NUR ---
SANGITA following for discharge planning. Spoke with RN and reviewed chart. SANGITA spoke with pt and she would like a referral for SNU sent to [facility]. Patient choice of vendor form completed. Referral phoned and faxed to [facility]. [facility] COVID result is negative. Pt has [facility] insurance. Pt on room air. Referral to [employer] to help pt file for Medicaid should pt need LTC. SW following.
[2021-01-07 15:00] VITALS: BP 148/58
[2021-01-07] MEDS: VANCOMYCIN PER PHARMACY MC PRN (15:37)
[2021-01-07] MEDS ORDERED: INSULIN LISPRO 300 UNITS/3 ML VIAL. SQ SCH (17:00)
[2021-01-07] MEDS: INSULIN LISPRO 300 UNITS/3 ML VIAL. SQ SCH ×2 (17:30→17:32)
--- NOTE | 2021-01-07 17:50 | CONS ---
DATE OF CONSULTATION: 01/07/2021 REFERRING PHYSICIAN: Dr. Moore. REASON FOR CONSULTATION: Enterococcus UTI and bacteremia. HISTORY OF PRESENT ILLNESS: A 75-year-old female with past medical history of diabetes, hypertension, hyperlipidemia, coronary artery disease, status post stenting, who presented with weakness and history of fall multiple times prior to admission. The patient was recently discharged from [facility] to home. The patient's p.o. intake had been poor. Appetite was poor with decreased strength. The patient denies any fevers, chills, nausea, vomiting, diarrhea, headache, sore throat. She did have pain especially in the left knee. Denied any headache. White count was elevated at 20.7, lactate of 5.3, creatinine of 1.8. INR of 1.3, glucose of 148. Procalcitonin 0.71. UA with positive leukocyte esterase and positive wbc's. Urine culture grew Enterococcus faecalis. Blood culture 1/4 bottles GPC. The patient received IV vancomycin 1 dose and was also on Zosyn. ID consultation has been requested for antibiotic management. Today, the patient states she feels a little better, still has pain in the left knee. Otherwise, no other complaints. PAST MEDICAL HISTORY: Diabetes, hypothyroidism, hyperlipidemia, hypertension, history of COVID. PAST SURGICAL HISTORY: Appendectomy, cholecystectomy, tonsillectomy. FAMILY HISTORY: As per HPI. SOCIAL HISTORY: No smoking, ETOH, or illicit drug use. CURRENT MEDICATIONS: IV vancomycin and Zosyn. Other medications reviewed in medication list. ALLERGIES: HYDROCHLOROTHIAZIDE, VALSARTAN. REVIEW OF SYSTEMS: Limited, but negative except for above in HPI. PHYSICAL EXAMINATION: VITAL SIGNS: Temperature 98.8, pulse 80, respiratory rate 18, blood pressure 153/62, oxygen saturation 93% on room air. GENERAL: Alert, oriented x 3 female, lying in bed comfortably, in no acute distress. HEENT: Normocephalic, atraumatic, anicteric. Forehead has a bruise mainly on the right side. Lip sore present. No oral lesions, no thrush. NECK: Supple, no JVD. LUNGS: Clear anteriorly. HEART: S1, S2. ABDOMEN: Soft, obese. Bowel sounds present, nontender, nondistended. EXTREMITIES: No edema, no cyanosis. DERMATOLOGIC: Warm, dry. No generalized rash except for above. MUSCULOSKELETAL: Suggestive of DJD. LABORATORY DATA: WBC 15.7 and was 20.7, hematocrit 27.4, platelets 229. Sodium 130, potassium 4.4, chloride 92, bicarbonate 22, creatinine 1.8. Lactate was 5.3, now is 1.4. Creatinine is 1.3. Sodium is 134. Albumin of 1.8. UA shows large leukocyte esterase, too numerous to count wbc's. COVID-19 negative. Influenza negative. MICROBIOLOGY: 1/4 bottles positive for gram-positive cocci in clusters. Urine culture, 20,000 Enterococcus faecalis and 70,000 E. coli. IMAGING: Chest x-ray shows no acute cardiopulmonary process. Head CT shows no acute intracranial abnormality. CT abdomen and pelvis and chest shows minimal subsegmental atelectasis seen in both lungs. No area of consolidation, no pneumothorax or pleural effusion noted. Abdominal CT, no acute abnormality noted. DJD of spine and both hips. IMPRESSION: 1. GPC bacteremia, 1/4 bottles present on admission, could be a contaminant. 2. Urinary tract infection, Escherichia coli and Enterococcus faecalis. 3. Leukocytosis and lactic acidosis. 4. History of fall. 5. Generalized weakness. 6. Acute kidney injury. 7. Protein-calorie malnutrition. 8. Degenerative joint disease. RECOMMENDATIONS: 1. Continue Zosyn. 2. DC Vancomycin. 3. Follow up labs and cultures. 4. Continue supportive care. 5. Follow up repeat COVID-19. Thank you for allowing me to participate in this patient's care. If you have any questions, do not hesitate to contact me. SHEREE ANTUNEZ MD DR: BLAYNE/marlo JOB#: [id number] / [id number] JUSTYNA
[2021-01-07 19:00] VITALS: BP 149/55
[2021-01-07] MEDS: PSYLLIUM HUSK (SUGAR FREE) 1 PKT PACKET PO SCH (21:25)
[2021-01-07] MEDS: INSULIN GLARGINE SYRINGE. SQ SCH (21:27)
[2021-01-07] MEDS: FLUoxetine HCL 20 MG CAPSULE PO SCH (21:28)
[2021-01-07 23:00] VITALS: BP 163/58
[2021-01-08] MEDS: ACETAMINOPHEN 500 MG TABLET PO PRN ×3 (00:36→22:16)
[2021-01-08 03:00] VITALS: BP 155/50
--- NOTE | 2021-01-08 04:47 | NUR ---
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
[2021-01-08] MEDS: LEVOTHYROXINE 100 MCG TABLET PO SCH (05:42)
[2021-01-08] MEDS: PIPERACILLIN/TAZOBACTAM 2.25 GM in IV NORMAL SALINE 50ML 50 ML IV SCH ×3 (05:42→18:22)
[2021-01-08 07:00] VITALS: BP 145/56
--- NOTE | 2021-01-08 10:01 | PDOC ---
Infectious Disease Note Subjective Subjective Comfortable, feeling better Denies pain/SOA/N/V/D/F/C ROS ROS as mentioned above otherwise negative Vital Sign Vital Signs Vital Signs Date Time Temp Pulse Resp B/P (MAP) Pulse Ox O2 Delivery O2 Flow Rate FiO2 01/08/21 07:00 96.8 56 14 145/56 (85) 97 Room Air 96.8 Physical Exam PHYSICAL EXAM GENERAL: Propped up in bed, alert no distress HEENT: Anicteric. Forehead has a bruise mainly on the right side. Lip sore present. No oral lesions, no thrush. NECK: Supple, no JVD. LUNGS: Clear anteriorly. No accessory muscle use. HEART: S1, S2. ABDOMEN: Obese, soft nontender. EXTREMITIES: No edema, no cyanosis. DERMATOLOGIC: Warm, dry. No generalized rash except for above. MUSCULOSKELETAL: Suggestive of DJD. PIV Labs Lab Laboratory Tests Test 01/07/21 10:42 01/07/21 16:37 01/07/21 19:21 01/07/21 21:20 Glucose (Fingerstick) 286 mg/dL (70-99) 289 mg/dL (70-99) 237 mg/dL (70-99) Vancomycin Level Trough 19.0 mcg/mL (10.0-20.0) Vancomycin Last Dose Date 01/06/21 Vancomycin Last Dose Time 2200 Test 01/08/21 08:05 Glucose (Fingerstick) 293 mg/dL (70-99) IMAGING: Chest x-ray shows no acute cardiopulmonary process. Head CT shows no acute intracranial abnormality. CT abdomen and pelvis and chest shows minimal subsegmental atelectasis seen in both lungs. No area of consolidation, no pneumothorax or pleural effusion noted. Abdominal CT, no acute abnormality noted. DJD of spine and both hips. Micro MICROBIOLOGY: 1/4 bottles positive for gram-positive cocci in clusters. Urine culture, 20,000 Enterococcus faecalis and 70,000 E. coli. Objective Assessment GPC bacteremia, 1/4 bottles present on admission, could be a contaminant, 2-15. Urinary tract infection, Escherichia coli and Enterococcus faecalis, 2-14. Leukocytosis and lactic acidosis. History of fall. Generalized weakness. Acute kidney injury. Protein-calorie malnutrition. Degenerative joint disease. COVID neg Plan Plan of Care Continue Zosyn. Off vanc, 2/16. Follow up labs and cultures. Continue supportive care. Attending Co-Sign The patient was seen and interviewed as well as examined at the bedside. Agree with the plan of care. TIMBO MONET APRN Jan 08, 2021 10:01 SHEREE ANTUNEZ MD Jan 08, 2021 12:34
[2021-01-08] MEDS: CARVEDILOL 12.5 MG TABLET. PO SCH ×2 (10:04→18:27)
[2021-01-08] MEDS: INSULIN LISPRO 300 UNITS/3 ML VIAL. SQ SCH ×6 (10:05→18:31)
[2021-01-08 11:00] VITALS: BP 149/55
[2021-01-08] MEDS ORDERED: INSULIN LISPRO 300 UNITS/3 ML VIAL. SQ ONE (11:45)
[2021-01-08 12:37] LABS: BASO % 0 % (0-3); EOS # 0.3 x10^3/uL (0.0-0.7); EOS % 3 % (0-3); HEMATOCRIT 29.5 % (36.0-47.0); HEMOGLOBIN 9.3 g/dL (12.0-15.5); LYMPH # 1.4 x10^3/uL (1.0-4.8); LYMPH % 15 % (24-48); MEAN CORPUSCULAR HEMOGLOBIN 24 pg (25-35); MEAN CORPUSCULAR HGB CONC 32 g/dL (31-37); MEAN CORPUSCULAR VOLUME 77 fL (79-100); MONO # 0.6 x10^3/uL (0.0-1.1); MONO % 6 % (0-9); NEUT # 6.6 x10^3/uL (1.8-7.7); NEUT % 75 % (31-73); PLATELET COUNT 224 x10^3/uL (140-400); RED BLOOD COUNT 3.85 x10^6/uL (3.50-5.40); RED CELL DISTRIBUTION WIDTH 15.8 % (11.5-14.5); WHITE BLOOD COUNT 8.9 x10^3/uL (4.0-11.0)
[2021-01-08 12:39] LABS: CALCIUM 9.4 mg/dL (8.5-10.1); CREATININE 1.4 mg/dL (0.6-1.0); GFR 36.5
--- NOTE | 2021-01-08 13:53 | PDOC ---
[employer] PROGRESS NOTE Date of Service DOS: DATE: 01/08/21 TIME: 13:51 Chief Complaint Chief Complaint A/P: Acute encephalopathy - likely from UTI, metabolic Multiple falls - due to deconditioning, may need director long term care placement eventually, definitely needs skilled services Weakness - due to sepsis, poor PO intake Sepsis - with urine and blood as likely source, empiric antibiotics given Gram positive blood culture positive - given enterococcal UTI, this is likely not a contaminant, will cont vancomycin and consult ID for assistance Elevated alkaline phosphatase - will monitor Acute renal failurevasomotor nephropathy. will hydrate Dyslipidemia - statin UTI - will treat empirically, f/u culture results Hyponatremia - hypovolemic, will replace Severe protein calorie malnutrition - will get early nutrition Hypercalcemia - likely from dehydration, will monitor Lactic acidosis - likely Urinary incontinence - will have bladder training with OT Morbid obesity BMI 50 - counseled on weight loss Bilateral knee pain left greater than right - improved after prior injections Diabetes type 2 uncontrolled - will place on basal bolus plus regimen while hospitalized. A1c 8.5 Hypertension, controlled - cont meds Hypothyroidism - TSH WNL, will cont 200mcg levothyroxine dosing Recent COVID 19 - asymptomatic save for her diarrhea. Test administered on 06/13/2020 and repeat positive 12/02/2020. FEN - ADA diet PPX - lovenox FULL CODE Dispo -inpatient likely 2 midnights History of Present Illness History of Present Illness Ms Kenney is a 74yo F w/ PMHx DM2, HLD, HTN, CAD s/p stenting who p/w weakness and apparent failure to thrive. According to family the patient has not been able to have any significant oral intake over the last 48 hours prior to admission. Patient had become progressively weak having decreased appetite and decreased ability to move and decreased general strength. She was just discharged from acute rehab 1 week prior to arrival. No focal weakness or numbness. Patient unable to provide any significant history due to weakness and altered mental status. No known fevers chills, nausea vomiting or diarrhea. She does c/o headache and left hip pain, but no other history is obtained due to confusion EKG with no ST segment T wave changes, left axis deviation. CT head with no acute abnormality. Chest radiograph with no acute abnormality. CT angiogram chest abdomen pelvis with no acute abnormality. Labs with WBC 20.7, Hb 9.9, platelets 302, NA 130, K4.4, BUN 32, CR 1.8, glucose 431, INR 1.3, calcium 10.2, lactic acid 5.3, lipase 48, albumin 2.3, procalcitonin 0.71. UA with positive leuk esterase Admitted for further care 01/08: Afebrile overnight. Urine with gram-negative rods and gram-positive cocci resembling Enterococcus. Blood cultures 1 out of 4 positive for gram-positive cocci resembling staph. She is feeling a little better less left hip pain and less headache. Afebrile overnight. WBC normalized. CR 1.4. Complaining of worsening back pain and restlessness today. Less confused. Repeat COVID-19 negative Vitals/I&O Vitals/I&O: Vital Signs Date Time Temp Pulse Resp B/P (MAP) Pulse Ox O2 Delivery O2 Flow Rate FiO2 01/08/21 11:00 95.4 61 16 149/55 (86) 97 Room Air 95.4 I & O 01/07/21 01/07/21 01/08/21 15:00 23:00 07:00 Output Total 250 ml Balance -250 ml Physical Exam Physical Exam: GENERAL: Propped up in bed, alert no distress HEENT: Anicteric. Forehead has a bruise mainly on the right side. Lip sore present. No oral lesions, no thrush. NECK: Supple, no JVD. LUNGS: Clear anteriorly. No accessory muscle use. HEART: S1, S2. ABDOMEN: Obese, soft nontender. EXTREMITIES: No edema, no cyanosis. DERMATOLOGIC: Warm, dry. No generalized rash except for above. MUSCULOSKELETAL: Suggestive of DJD. PIV General: Alert, Cooperative, moderate distress Lungs: Clear Abdomen: Normal bowel sounds, Soft, No tenderness, No hepatosplenomegaly, No masses Extremities: No clubbing, No cyanosis, No edema, Normal pulses, No tenderness/swelling Skin: No rashes, No breakdown, No significant lesion Labs Labs: Laboratory Tests Test 01/07/21 16:37 01/07/21 19:21 01/07/21 21:20 01/08/21 08:05 Glucose (Fingerstick) 289 mg/dL (70-99) 237 mg/dL (70-99) 293 mg/dL (70-99) Vancomycin Level Trough 19.0 mcg/mL (10.0-20.0) Vancomycin Last Dose Date 01/06/21 Vancomycin Last Dose Time 2200 Test 01/08/21 11:24 01/08/21 12:14 Glucose (Fingerstick) 389 mg/dL (70-99) White Blood Count 8.9 x10^3/uL (4.0-11.0) Red Blood Count 3.85 x10^6/uL (3.50-5.40) Hemoglobin 9.3 g/dL (12.0-15.5) Hematocrit 29.5 % (36.0-47.0) Mean Corpuscular Volume 77 fL (79-100) Mean Corpuscular Hemoglobin 24 pg (25-35) Mean Corpuscular Hemoglobin Concent 32 g/dL (31-37) Red Cell Distribution Width 15.8 % (11.5-14.5) Platelet Count 224 x10^3/uL (140-400) Neutrophils (%) (Auto) 75 % (31-73) Lymphocytes (%) (Auto) 15 % (24-48) Monocytes (%) (Auto) 6 % (0-9) Eosinophils (%) (Auto) 3 % (0-3) Basophils (%) (Auto) 0 % (0-3) Neutrophils # (Auto) 6.6 x10^3/uL (1.8-7.7) Lymphocytes # (Auto) 1.4 x10^3/uL (1.0-4.8) Monocytes # (Auto) 0.6 x10^3/uL (0.0-1.1) Eosinophils # (Auto) 0.3 x10^3/uL (0.0-0.7) Basophils # (Auto) 0.0 x10^3/uL (0.0-0.2) Sodium Level 135 mmol/L (136-145) Potassium Level 4.0 mmol/L (3.5-5.1) Chloride Level 100 mmol/L (98-107) Carbon Dioxide Level 27 mmol/L (21-32) Anion Gap 8 (6-14) Blood Urea Nitrogen 24 mg/dL (7-20) Creatinine 1.4 mg/dL (0.6-1.0) Estimated GFR (Cockcroft-Gault) 36.5 Glucose Level 380 mg/dL (70-99) Calcium Level 9.4 mg/dL (8.5-10.1) Assessment and Plan Assessmemt and Plan Problems Medical Problems: (1) Sepsis Status: Acute Comment Review of Relevant I have reviewed the following items jina (where applicable) has been applied. Medications: Current Medications Medications (Trade) Dose Ordered Sig/Natasha Route PRN Reason Start Time Stop Time Status Last Admin Dose Admin Insulin Human Lispro (HumaLOG) 0-9 UNITS TIDWMEALS SQ 01/07/21 17:00 01/08/21 11:51 Insulin Human Lispro (HumaLOG) 4 units TIDAC SQ 01/07/21 16:30 01/08/21 11:50 Acetaminophen (Tylenol) 1,000 mg PRN Q6HRS PRN PO MILD PAIN / TEMP > 100.3'F 01/08/21 00:00 01/08/21 11:47 Insulin Human Lispro (HumaLOG) 3 units 1X ONCE SQ 01/08/21 11:45 01/08/21 11:48 DC 01/08/21 11:53 Justifications for Admission Other Justification HILDA HERNANDEZ MD Jan 08, 2021 13:53
--- NOTE | 2021-01-08 14:00 | NUR ---
SW following for discharge planning. Spoke with RN and reviewed chart. Pt's PCR COVID result is negative. Pt in copay days for SNU per [facility] at [facility]. SANGITA met with pt. Pt stated she has savings and will pay the copay days. Pt requested that [facility] SNU submit for insurance authorization. SW contacted Brina to request she submit for authorization. SW following.
[2021-01-08 15:00] VITALS: BP 122/41
[2021-01-08] MEDS: HEPARIN for SUB-Q USE 5,000 UNIT/ML VIAL. SQ SCH ×2 (15:55→20:36)
[2021-01-08 19:00] VITALS: BP 144/51
[2021-01-08] MEDS: FLUoxetine HCL 20 MG CAPSULE PO SCH (20:28)
[2021-01-08] MEDS: PSYLLIUM HUSK (SUGAR FREE) 1 PKT PACKET PO SCH (20:28)
[2021-01-08] MEDS: LACTOBACILLUS RHAMNOSUS GG 1 CAPSULE. PO SCH (20:28)
[2021-01-08] MEDS: INSULIN GLARGINE SYRINGE. SQ SCH (20:36)
[2021-01-08 23:00] VITALS: BP 148/58
[2021-01-09] MEDS: PIPERACILLIN/TAZOBACTAM 2.25 GM in IV NORMAL SALINE 50ML 50 ML IV SCH ×4 (00:29→18:02)
[2021-01-09 03:00] VITALS: BP 154/53
[2021-01-09] MEDS: LEVOTHYROXINE 100 MCG TABLET PO SCH (05:54)
[2021-01-09] MEDS: HEPARIN for SUB-Q USE 5,000 UNIT/ML VIAL. SQ SCH ×3 (05:55→20:57)
[2021-01-09 07:00] VITALS: BP 161/60
[2021-01-09] MEDS: LACTOBACILLUS RHAMNOSUS GG 1 CAPSULE. PO SCH ×2 (07:58→20:56)
[2021-01-09] MEDS: CARVEDILOL 12.5 MG TABLET. PO SCH ×2 (07:59→17:12)
[2021-01-09] MEDS: INSULIN LISPRO 300 UNITS/3 ML VIAL. SQ SCH ×6 (08:01→17:16)
--- NOTE | 2021-01-09 09:17 | PDOC ---
[employer] PROGRESS NOTE Date of Service DOS: DATE: 01/09/21 TIME: 09:17 Chief Complaint Chief Complaint A/P: Acute encephalopathy - likely from UTI, metabolic Multiple falls - due to deconditioning, may need termite control representative placement eventually, definitely needs skilled services Weakness - due to sepsis, poor PO intake Sepsis - with urine and blood as likely source, empiric antibiotics given Gram positive blood culture positive - given enterococcal UTI, this is likely not a contaminant, will cont vancomycin and consult ID for assistance Elevated alkaline phosphatase - will monitor Acute renal failurevasomotor nephropathy. will hydrate Dyslipidemia - statin UTI - will treat empirically, f/u culture results Hyponatremia - hypovolemic, will replace Severe protein calorie malnutrition - will get early nutrition Hypercalcemia - likely from dehydration, will monitor Lactic acidosis - likely Urinary incontinence - will have bladder training with OT Morbid obesity BMI 50 - counseled on weight loss Bilateral knee pain left greater than right - improved after prior injections Diabetes type 2 uncontrolled - will place on basal bolus plus regimen while hospitalized. A1c 8.5 Hypertension, controlled - cont meds Hypothyroidism - TSH WNL, will cont 200mcg levothyroxine dosing Recent COVID 19 - asymptomatic save for her diarrhea. Test administered on 06/13/2020 and repeat positive 12/02/2020. FEN - ADA diet PPX - lovenox FULL CODE Dispo -inpatient likely 2 midnights History of Present Illness History of Present Illness Ms Kenney is a 74yo F w/ PMHx DM2, HLD, HTN, CAD s/p stenting who p/w weakness and apparent failure to thrive. According to family the patient has not been able to have any significant oral intake over the last 48 hours prior to admission. Patient had become progressively weak having decreased appetite and decreased ability to move and decreased general strength. She was just discharged from acute rehab 1 week prior to arrival. No focal weakness or numbness. Patient unable to provide any significant history due to weakness and altered mental status. No known fevers chills, nausea vomiting or diarrhea. She does c/o headache and left hip pain, but no other history is obtained due to confusion EKG with no ST segment T wave changes, left axis deviation. CT head with no acute abnormality. Chest radiograph with no acute abnormality. CT angiogram chest abdomen pelvis with no acute abnormality. Labs with WBC 20.7, Hb 9.9, platelets 302, NA 130, K4.4, BUN 32, CR 1.8, glucose 431, INR 1.3, calcium 10.2, lactic acid 5.3, lipase 48, albumin 2.3, procalcitonin 0.71. UA with positive leuk esterase Admitted for further care 01/08: Afebrile overnight. Urine with gram-negative rods and gram-positive cocci resembling Enterococcus. Blood cultures 1 out of 4 positive for gram-positive cocci resembling staph. She is feeling a little better less left hip pain and less headache. Afebrile overnight. WBC normalized. CR 1.2. Complaining of worsening back pain and restlessness today. Less confused. Repeat COVID-19 negative Vitals/I&O Vitals/I&O: Vital Signs Date Time Temp Pulse Resp B/P (MAP) Pulse Ox O2 Delivery O2 Flow Rate FiO2 01/09/21 07:59 60 161/60 01/09/21 07:00 98.1 18 95 Room Air 98.1 I & O 01/08/21 01/08/21 01/09/21 15:00 23:00 07:00 Intake Total 480 ml 290 ml 100 ml Balance 480 ml 290 ml 100 ml Physical Exam Physical Exam: GENERAL: Propped up in bed, alert no distress HEENT: Anicteric. Forehead has a bruise mainly on the right side. Lip sore present. No oral lesions, no thrush. NECK: Supple, no JVD. LUNGS: Clear anteriorly. No accessory muscle use. HEART: S1, S2. ABDOMEN: Obese, soft nontender. EXTREMITIES: No edema, no cyanosis. DERMATOLOGIC: Warm, dry. No generalized rash except for above. MUSCULOSKELETAL: Suggestive of DJD. PIV General: Alert, Cooperative, moderate distress Lungs: Clear Abdomen: Normal bowel sounds, Soft, No tenderness, No hepatosplenomegaly, No masses Extremities: No clubbing, No cyanosis, No edema, Normal pulses, No tenderness/swelling Skin: No rashes, No breakdown, No significant lesion Labs Labs: Laboratory Tests Test 01/08/21 11:24 01/08/21 12:14 01/08/21 14:35 01/08/21 18:23 Glucose (Fingerstick) 389 mg/dL (70-99) 264 mg/dL (70-99) 262 mg/dL (70-99) White Blood Count 8.9 x10^3/uL (4.0-11.0) Red Blood Count 3.85 x10^6/uL (3.50-5.40) Hemoglobin 9.3 g/dL (12.0-15.5) Hematocrit 29.5 % (36.0-47.0) Mean Corpuscular Volume 77 fL (79-100) Mean Corpuscular Hemoglobin 24 pg (25-35) Mean Corpuscular Hemoglobin Concent 32 g/dL (31-37) Red Cell Distribution Width 15.8 % (11.5-14.5) Platelet Count 224 x10^3/uL (140-400) Neutrophils (%) (Auto) 75 % (31-73) Lymphocytes (%) (Auto) 15 % (24-48) Monocytes (%) (Auto) 6 % (0-9) Eosinophils (%) (Auto) 3 % (0-3) Basophils (%) (Auto) 0 % (0-3) Neutrophils # (Auto) 6.6 x10^3/uL (1.8-7.7) Lymphocytes # (Auto) 1.4 x10^3/uL (1.0-4.8) Monocytes # (Auto) 0.6 x10^3/uL (0.0-1.1) Eosinophils # (Auto) 0.3 x10^3/uL (0.0-0.7) Basophils # (Auto) 0.0 x10^3/uL (0.0-0.2) Sodium Level 135 mmol/L (136-145) Potassium Level 4.0 mmol/L (3.5-5.1) Chloride Level 100 mmol/L (98-107) Carbon Dioxide Level 27 mmol/L (21-32) Anion Gap 8 (6-14) Blood Urea Nitrogen 24 mg/dL (7-20) Creatinine 1.4 mg/dL (0.6-1.0) Estimated GFR (Cockcroft-Gault) 36.5 Glucose Level 380 mg/dL (70-99) Calcium Level 9.4 mg/dL (8.5-10.1) Test 01/08/21 20:25 01/09/21 07:23 Glucose (Fingerstick) 247 mg/dL (70-99) 206 mg/dL (70-99) Assessment and Plan Assessmemt and Plan Problems Medical Problems: (1) Sepsis Status: Acute Comment Review of Relevant I have reviewed the following items jina (where applicable) has been applied. Medications: Current Medications Medications (Trade) Dose Ordered Sig/Natasha Route PRN Reason Start Time Stop Time Status Last Admin Dose Admin Insulin Human Lispro (HumaLOG) 3 units 1X ONCE SQ 01/08/21 11:45 01/08/21 11:48 DC 01/08/21 11:53 Lactobacillus Rhamnosus (Culturelle) 1 cap BID PO 01/08/21 21:00 01/09/21 07:58 Heparin Sodium (Porcine) (Heparin Sodium) 5,000 unit Q8HRS SQ 01/08/21 15:00 01/09/21 05:55 Justifications for Admission Other Justification HILDA HERNANDEZ MD Jan 09, 2021 09:17
[2021-01-09] MEDS ORDERED: methylPREDNISolone ACETATE 40 MG/ML VIAL. IM ONE (09:30)
[2021-01-09] MEDS ORDERED: BUPIVACAINE MPF 0.25% 10 ML VIAL. IJ ONE (09:30)
--- NOTE | 2021-01-09 09:55 | CONS ---
DATE OF CONSULTATION: 01/09/2021 PULMONARY CONSULTATION ATTENDING PHYSICIAN: Dr. Randolph. REASON FOR CONSULTATION: The patient was seen at the request of Dr. Randolph for rehab evaluation. HISTORY OF PRESENT ILLNESS: This is a 75-year-old right-handed female with known diabetes mellitus type 2, hyperlipidemia, hypertension, coronary artery disease, status post stenting with progressive weakness and apparent failure to thrive. The patient was admitted on 01/16/2021 as she is having difficulty to take anything by mouth for the last 48 hours prior to the hospitalization. She became progressively weak, having decreased appetite and decreased ability to move and decreased general strength. She was discharged from detention care unit at [facility] area about a week prior to this hospitalization after she was at [facility] earlier. The patient apparently climbed about 4 steps at the time of discharge from detention care unit, but she is having some pain in her left knee and left hip area. She had a fall. She complained of headache and left hip pain. CT scan of the brain failed to reveal any acute abnormality. CT angiogram of the chest and abdomen failed to reveal any acute abnormality other than distended bladder and thoracolumbar scoliosis with degenerative joint disease changes. The patient is status post appendectomy, cholecystectomy and tonsillectomy. She used to live with her son in a trailer home or mobile home, but her son in October. She is planned to go and stay with her daughter who also had about 4 stairs with railing to get in the house. ALLERGIES: THE PATIENT IS KNOWN ALLERGIC TO HYDROCHLOROTHIAZIDE AND VALSARTAN. FAMILY HISTORY: The patient has family history of diabetes mellitus and hypertension. SOCIAL HISTORY: The patient is retired after working at this [employer]. PHYSICAL EXAMINATION: On physical examination today revealed a middle-aged female. She is alert, oriented to time, place, person and circumstance and follows commands appropriately, moves all 4 extremities voluntarily where she had 4+/5 grade muscle strength. Deep tendon reflexes are absent at both knees and ankles. She had equal perception of touch and pinprick sensation bilaterally. She had crepitus on range of motion of her knee joint without any significant knee joint effusion. She had pain free range of motion of both hip joints. She had tenderness to palpation over sacroiliac joint area and left trochanteric bursa and over lateral knee joint line of left knee. She is independent, rolling from side to side. I have not tested her transfers or ambulation skills at this time, but apparently, she got up with physical therapy yesterday. ASSESSMENT: Mobility and self-care limitation in a patient with deconditioned state with recent hospitalization for urinary tract infection, the patient with known painful degenerative joint disease of left knee and also degenerative joint disease of right knee without much pain, left trochanteric bursitis, degenerative joint disease and degenerative disk disease of thoracolumbar vertebrae without any clinical evidence of ongoing thoracic or lumbar radiculopathy, obesity, diabetes mellitus with peripheral neuropathy, the patient with known hypertension, hyperlipidemia, hypothyroidism, and urinary tract infection. RECOMMENDATION: To proceed with injecting painful left knee and also if left hip pain keeps bothering to inject her left trochanteric bursa, agree with the plans for transfer to detention care unit when medically stable for continued care. Dr. Randolph, I appreciate asking me to participate in the care of this interesting patient. I will be glad to see her for followup with you on as needed basis. PAWAN FLETCHER MD DR: YARA/marlo JOB#: [id number] / [id number]
--- NOTE | 2021-01-09 10:21 | PDOC ---
Infectious Disease Note Subjective Subjective Comfortable Participating PT Denies pain/SOA/N/V/D/F/C ROS ROS as mentioned above Vital Sign Vital Signs Vital Signs Date Time Temp Pulse Resp B/P (MAP) Pulse Ox O2 Delivery O2 Flow Rate FiO2 01/09/21 08:00 Room Air 01/09/21 07:59 60 161/60 01/09/21 07:00 98.1 18 95 98.1 Physical Exam PHYSICAL EXAM GENERAL: up in the chiar, laert, smiling HEENT: Anicteric. Forehead has a bruise mainly on the right side. Lip sore present. No oral lesions, no thrush. NECK: Supple, no JVD. LUNGS: Clear anteriorly. No accessory muscle use. HEART: S1, S2. ABDOMEN: Obese, soft nontender. EXTREMITIES: No edema, no cyanosis. DERMATOLOGIC: Warm, dry. No generalized rash except for above. MUSCULOSKELETAL: Suggestive of DJD. PIV Labs Lab Laboratory Tests Test 01/08/21 11:24 01/08/21 12:14 01/08/21 14:35 01/08/21 18:23 Glucose (Fingerstick) 389 mg/dL (70-99) 264 mg/dL (70-99) 262 mg/dL (70-99) White Blood Count 8.9 x10^3/uL (4.0-11.0) Red Blood Count 3.85 x10^6/uL (3.50-5.40) Hemoglobin 9.3 g/dL (12.0-15.5) Hematocrit 29.5 % (36.0-47.0) Mean Corpuscular Volume 77 fL (79-100) Mean Corpuscular Hemoglobin 24 pg (25-35) Mean Corpuscular Hemoglobin Concent 32 g/dL (31-37) Red Cell Distribution Width 15.8 % (11.5-14.5) Platelet Count 224 x10^3/uL (140-400) Neutrophils (%) (Auto) 75 % (31-73) Lymphocytes (%) (Auto) 15 % (24-48) Monocytes (%) (Auto) 6 % (0-9) Eosinophils (%) (Auto) 3 % (0-3) Basophils (%) (Auto) 0 % (0-3) Neutrophils # (Auto) 6.6 x10^3/uL (1.8-7.7) Lymphocytes # (Auto) 1.4 x10^3/uL (1.0-4.8) Monocytes # (Auto) 0.6 x10^3/uL (0.0-1.1) Eosinophils # (Auto) 0.3 x10^3/uL (0.0-0.7) Basophils # (Auto) 0.0 x10^3/uL (0.0-0.2) Sodium Level 135 mmol/L (136-145) Potassium Level 4.0 mmol/L (3.5-5.1) Chloride Level 100 mmol/L (98-107) Carbon Dioxide Level 27 mmol/L (21-32) Anion Gap 8 (6-14) Blood Urea Nitrogen 24 mg/dL (7-20) Creatinine 1.4 mg/dL (0.6-1.0) Estimated GFR (Cockcroft-Gault) 36.5 Glucose Level 380 mg/dL (70-99) Calcium Level 9.4 mg/dL (8.5-10.1) Test 01/08/21 20:25 01/09/21 07:23 Glucose (Fingerstick) 247 mg/dL (70-99) 206 mg/dL (70-99) Micro MICROBIOLOGY: 11/25 bottles positive for gram-positive cocci in clusters. BLOOD CULTURE LC Preliminary Preliminary GROWTH OF GRAM POSITIVE COCCI FINAL ID= [AEROCOCCUS URINAE] AEROCOCCUS URINAE GROWTH OF GRAM POSITIVE COCCI FINAL ID= [STAPHYLOCOCCUS HOMINIS] Urine culture, 20,000 Enterococcus faecalis and 70,000 E. coli. ESCHERICHIA COLI ANTIBIOTIC RESULT INTERPRETATION AMPICILLIN/SULBACTAM <=4/2 S AMIKACIN <=16 S AMPICILLIN <=8 S AMOXICILLIN/K CLAVULANATE <=8/4 S AZTREONAM <=4 S CEFTRIAXONE <=1 S CEFTAZIDIME <=1 S CEFOTAXIME <=2 S CEFOXITIN <=8 S CIPROFLOXACIN <=0.25 S CEFEPIME <=2 S CEFUROXIME <=4 S CEFTAZIDIME/AVIBACTAM <=4 S ERTAPENEM <=0.5 S NITROFURANTOIN <=32 S GENTAMICIN <=2 S LEVOFLOXACIN <=0.5 S MEROPENEM <=1 S PIPERACILLIN/TAZOBACTAM <=8 S TRIMETHOPRIM/SULFAMETHOXAZOLE >2/38 R TETRACYCLINE <=4 S TOBRAMYCIN <=2 S Streptomycin Synergy Screen S Gentamicin Synergy Screen S ENTEROCOCCUS FAECALIS ANTIBIOTIC RESULT INTERPRETATION AMPICILLIN <=2 S CIPROFLOXACIN <=1 S DAPTOMYCIN 1 S NITROFURANTOIN <=32 S LINEZOLID 2 S LEVOFLOXACIN <=1 S PENICILLIN 2 S TETRACYCLINE >8 R VANCOMYCIN 1 S Objective Assessment GPC bacteremia, 1/4 bottles present on admission January 06, 2021 1 bottle Staph hominis could be a contaminant 1 bottle aerococcus Urinary tract infection, Escherichia coli )R- Bactrim) and Enterococcus faecalis (amp-S), 2-14. Leukocytosis and lactic acidosis, improved History of fall. Generalized weakness. Acute kidney injury. Protein-calorie malnutrition. Degenerative joint disease. COVID neg Plan Plan of Care Continue Zosyn. Off vanc, 01/07. Monitor labs/temp Continue supportive care. Attending Co-Sign The patient was seen and interviewed as well as examined at the bedside. Discussed with PURCHASING ADMINISTRATOR Agree with the plan of care. TIMBO MONET APRN Jan 09, 2021 10:21 SHEREE ANTUNEZ MD Jan 09, 2021 13:52
--- NOTE | 2021-01-09 10:51 | PDOC4 ---
PROCEDURE Procedure At her request, I have injected painful left knee joint under aseptic skin t echnique with 2 ml of ).25% marcaine solution mixed with 1 ml of depo-medrol 40 mg? 1 ml solution under aseptic skin technique with alcohol skin prep and she tolerated the procedure satisfactorily without any side effects. PAWAN FLETCHER MD Jan 09, 2021 10:51
[2021-01-09 11:00] VITALS: BP 136/51
[2021-01-09 12:20] LABS: BASO % 1 % (0-3); EOS # 0.3 x10^3/uL (0.0-0.7); EOS % 3 % (0-3); HEMATOCRIT 29.9 % (36.0-47.0); HEMOGLOBIN 9.6 g/dL (12.0-15.5); LYMPH # 1.7 x10^3/uL (1.0-4.8); LYMPH % 16 % (24-48); MEAN CORPUSCULAR HEMOGLOBIN 25 pg (25-35); MEAN CORPUSCULAR HGB CONC 32 g/dL (31-37); MEAN CORPUSCULAR VOLUME 77 fL (79-100); MONO # 0.6 x10^3/uL (0.0-1.1); MONO % 5 % (0-9); NEUT % 75 % (31-73); PLATELET COUNT 329 x10^3/uL (140-400); RED CELL DISTRIBUTION WIDTH 15.5 % (11.5-14.5); WHITE BLOOD COUNT 10.7 x10^3/uL (4.0-11.0)
[2021-01-09 12:24] LABS: CALCIUM 9.6 mg/dL (8.5-10.1); CREATININE 1.2 mg/dL (0.6-1.0); GFR 43.6; POTASSIUM 3.9 mmol/L (3.5-5.1)
--- NOTE | 2021-01-09 14:47 | NUR ---
SANGITA following for discharge planning. Spoke with RN and reviewed chart. Pt transferred down to 5N. SW met with pt and she remains agreeable to discharge to [facility]. SANGITA spoke with Brina who submitted for insurance authorization yesterday, 01/08. Discharge plan is to [facility] pending insurance approval. SW following.
[2021-01-09 15:00] VITALS: BP 152/52
[2021-01-09 19:00] VITALS: BP 160/39
[2021-01-09] MEDS: FLUoxetine HCL 20 MG CAPSULE PO SCH (20:56)
[2021-01-09] MEDS: PSYLLIUM HUSK (SUGAR FREE) 1 PKT PACKET PO SCH (20:56)
[2021-01-09] MEDS: DICLOFENAC SODIUM 1% TOPICAL GEL 100GM TUBE. TP SCH (20:56)
[2021-01-09] MEDS: INSULIN GLARGINE SYRINGE. SQ SCH (20:57)
[2021-01-09] MEDS: ACETAMINOPHEN 500 MG TABLET PO PRN (21:02)
[2021-01-09 23:06] VITALS: BP 160/49
[2021-01-10] MEDS: PIPERACILLIN/TAZOBACTAM 2.25 GM in IV NORMAL SALINE 50ML 50 ML IV SCH ×2 (00:32→06:06)
[2021-01-10 03:00] VITALS: BP 164/49
[2021-01-10] MEDS: LEVOTHYROXINE 100 MCG TABLET PO SCH (06:05)
[2021-01-10] MEDS: HEPARIN for SUB-Q USE 5,000 UNIT/ML VIAL. SQ SCH (06:06)
--- NOTE | 2021-01-10 06:26 | NUR ---
IP: No need for isolation at this time. Urine is not an MDRO. Pt may be removed from contact precautions.
[2021-01-10 07:00] VITALS: BP 175/54
[2021-01-10 08:01] LABS: CALCIUM 9.7 mg/dL (8.5-10.1); GFR 53.8; POTASSIUM 3.6 mmol/L (3.5-5.1)
[2021-01-10] MEDS: CARVEDILOL 12.5 MG TABLET. PO SCH (08:48)
[2021-01-10] MEDS: LACTOBACILLUS RHAMNOSUS GG 1 CAPSULE. PO SCH (08:49)
[2021-01-10] MEDS: INSULIN LISPRO 300 UNITS/3 ML VIAL. SQ SCH ×4 (08:57→11:20)
[2021-01-10] MEDS: DICLOFENAC SODIUM 1% TOPICAL GEL 100GM TUBE. TP SCH (08:58)
[2021-01-10 09:00] VITALS: BP 155/49
--- NOTE | 2021-01-10 10:08 | PDOC ---
Infectious Disease Note Subjective: Subjective Patient denies any complaints Still feels a little tired Denies pain/SOA/N/V/D/F/C Vital Signs: Vital Signs Vital Signs Date Time Temp Pulse Resp B/P (MAP) Pulse Ox O2 Delivery O2 Flow Rate FiO2 01/10/21 09:00 155/49 (84) 95 Room Air 01/10/21 08:48 57 01/10/21 07:00 97.6 16 97.6 Physical Exam: PHYSICAL EXAM GENERAL: up in the chiar, laert, smiling HEENT: Anicteric. Forehead has a bruise mainly on the right side. Lip sore present. No oral lesions, no thrush. NECK: Supple, no JVD. LUNGS: Clear anteriorly. No accessory muscle use. HEART: S1, S2. ABDOMEN: Obese, soft nontender. EXTREMITIES: No edema, no cyanosis. DERMATOLOGIC: Warm, dry. No generalized rash except for above. MUSCULOSKELETAL: Suggestive of DJD. PIV Medications: Inpatient Meds: Medications reviewed. Labs: Lab Laboratory Tests Test 01/09/21 10:40 01/09/21 12:05 01/09/21 16:25 01/09/21 19:49 Glucose (Fingerstick) 246 mg/dL (70-99) 193 mg/dL (70-99) 234 mg/dL (70-99) White Blood Count 10.7 x10^3/uL (4.0-11.0) Red Blood Count 3.90 x10^6/uL (3.50-5.40) Hemoglobin 9.6 g/dL (12.0-15.5) Hematocrit 29.9 % (36.0-47.0) Mean Corpuscular Volume 77 fL (79-100) Mean Corpuscular Hemoglobin 25 pg (25-35) Mean Corpuscular Hemoglobin Concent 32 g/dL (31-37) Red Cell Distribution Width 15.5 % (11.5-14.5) Platelet Count 329 x10^3/uL (140-400) Neutrophils (%) (Auto) 75 % (31-73) Lymphocytes (%) (Auto) 16 % (24-48) Monocytes (%) (Auto) 5 % (0-9) Eosinophils (%) (Auto) 3 % (0-3) Basophils (%) (Auto) 1 % (0-3) Neutrophils # (Auto) 8.0 x10^3/uL (1.8-7.7) Lymphocytes # (Auto) 1.7 x10^3/uL (1.0-4.8) Monocytes # (Auto) 0.6 x10^3/uL (0.0-1.1) Eosinophils # (Auto) 0.3 x10^3/uL (0.0-0.7) Basophils # (Auto) 0.0 x10^3/uL (0.0-0.2) Sodium Level 137 mmol/L (136-145) Potassium Level 3.9 mmol/L (3.5-5.1) Chloride Level 100 mmol/L (98-107) Carbon Dioxide Level 28 mmol/L (21-32) Anion Gap 9 (6-14) Blood Urea Nitrogen 19 mg/dL (7-20) Creatinine 1.2 mg/dL (0.6-1.0) Estimated GFR (Cockcroft-Gault) 43.6 Glucose Level 239 mg/dL (70-99) Calcium Level 9.6 mg/dL (8.5-10.1) Test 01/10/21 06:20 01/10/21 07:34 Sodium Level 140 mmol/L (136-145) Potassium Level 3.6 mmol/L (3.5-5.1) Chloride Level 103 mmol/L (98-107) Carbon Dioxide Level 29 mmol/L (21-32) Anion Gap 8 (6-14) Blood Urea Nitrogen 14 mg/dL (7-20) Creatinine 1.0 mg/dL (0.6-1.0) Estimated GFR (Cockcroft-Gault) 53.8 Glucose Level 201 mg/dL (70-99) Calcium Level 9.7 mg/dL (8.5-10.1) Glucose (Fingerstick) 222 mg/dL (70-99) Objective: Assessment: GPC bacteremia, 1/4 bottles present on admission January 06, 2021 1 bottle Staph hominis could be a contaminant 1 bottle aerococcus urinae Urinary tract infection, Escherichia coli )R- Bactrim) and Enterococcus faecalis (amp-S), 2-14. Leukocytosis and lactic acidosis, improved History of fall. Generalized weakness. Acute kidney injury. Protein-calorie malnutrition. Degenerative joint disease. COVID neg Plan: Plan of Care Dc Zosyn augmentin for 10 days ok to dc from ID standpoint Discussed with SHEREE BANDA MD Jan 10, 2021 10:08
[2021-01-10] MEDS ORDERED: AMOXICILLIN/K CLAV 875/125MG TABLET. PO SCH (10:30)
[2021-01-10 11:00] VITALS: BP 144/73
[2021-01-10] MEDS ORDERED: AMOX1TAB11 PO (11:53)
[2021-01-10] MEDS ORDERED: LEVO100T5 PO (11:53)
--- NOTE | 2021-01-10 11:53 | SNU/HH DC ---
DISCHARGE ORDERS DISCHARGE INFORMATION: DISCHARGE DATE: Jan 10, 2021 FINAL DIAGNOSIS Problems Medical Problems: (1) Sepsis Status: Acute CONDITION ON DISCHARGE: Stable CODE STATUS: Code Status: Full FDC: SNF STAY <30 DAYS: Yes POST DISCHARGE ORDERS: ACTIVITY ORDERS: Activity as tolerated WEIGHT BEARING STATUS: As tolerated DIET AFTER DISCHARGE: Cardiac WOUND/INCISION CARE: Ice to area for comfort, No wound care needed CHECKS AFTER DISCHARGE: CHECKS AFTER DISCHARGE: Check blood press - daily, Check blood sugar, ac/hs FOLLOW-UP: PHYSICIAN FOLLOW-UP: primary care 2 weeks TREATMENT/EQUIPMENT ORDERS: ADAPTIVE EQUIPMENT NEEDED: None, Front wheeled walker Physical Therapy For: Evalulation/Treatment Occupational Therapy For: Evaluation/Treatment DISCHARGE MEDICATIONS: Home Meds Active Scripts Levothyroxine Sodium (LEVOTHYROXINE SODIUM) 100 Mcg Tablet, 200 MCG PO DAILY07 for thyroid, #30 TAB Prov:JAYDE CLARK MD 01/10/21 Amoxicillin/Potassium Clav (AMOX TR-K CLV 875-125 MG TAB) 1 Each Tablet, 1 TAB PO BID for infection, #19 TAB Prov:JAYDE CLARK MD 01/10/21 Insulin Lispro (Admelog) 100 Unit/1 Ml Vial, 0 UNITS SQ TIDWMEALS for diabetes for 30 Days, #2 EACH Prov:JAIRO CHRISTENSEN MD 12/07/20 Famotidine (FAMOTIDINE) 20 Mg Tablet, 20 MG PO BID for gerd for 30 Days, #60 TAB Prov:JAIRO CHRISTENSEN MD 12/07/20 Reported Medications Fluoxetine Hcl (FLUOXETINE HCL) 20 Mg Tablet, 20 MG PO HS for depression, TAB 01/06/21 Nystatin (NYSTATIN) 15 Gm Powder, 1 TK TP PRN BID PRN for RASH for 7 Days, #1 BOTTLE 0 Refills apply to affected area(s) 01/06/21 Insulin Glargine,Hum.rec.anlog (LANTUS SOLOSTAR) 100 Unit/1 Ml Insuln.pen, 20 UNIT SQ QHS for BS HIGH, #15 ML 5 Refills 05/28/19 Sennosides/Docusate Sodium (SENOKOT-S TABLET) 1 Each Tablet, 1 EACH PO PRN DAILY PRN for CONSTIPATION, TAB 05/28/19 Diphenhydramine Hcl (BENADRYL) 25 Mg Capsule, 25 MG PO PRN QHS PRN for INSOMNIA, CAP 05/28/19 Carvedilol (COREG) 25 Mg Tablet, 12.5 MG PO BIDWMEALS for CARDIAC, TAB 05/28/19 Nitroglycerin (NITROSTAT) 0.4 Mg Tab.subl, 0.4 MG SL PRN Q5MIN PRN for CHEST PAIN, BOTTLE 05/28/19 Discontinued Reported Medications Levothyroxine Sodium (LEVOTHYROXINE SODIUM) 200 Mcg Tablet, 2 TAB PO DAILY for UKN, #30 TAB 5 Refills 06/17/20 JAYDE CLARK MD Jan 10, 2021 11:53
[2021-01-10] MEDS ORDERED: methylPREDNISolone ACETATE 40 MG/ML VIAL. IM ONE (13:15)
[2021-01-10] MEDS ORDERED: BUPIVACAINE MPF 0.25% 10 ML VIAL. IJ ONE (13:15)
--- NOTE | 2021-01-10 13:41 | NUR ---
SW following for discharge planning. Spoke with RN and reviewed chart. Insurance approved SNU. Discharge orders phoned and faxed. Clinicals ready to be sent with pt. RN to call report. [facility] transport coming at 1345. No further SW needs at this time.
--- NOTE | 2021-01-10 13:45 | PDOC ---
PROGRESS NOTES Date of Service DATE: 01/10/21 TIME: 13:40 Subjective Subjective She admits less knee pain but still having difficulty with mobility and left hip pain continues. Objective Objective Vital Signs Date Time Temp Pulse Resp B/P (MAP) Pulse Ox O2 Delivery O2 Flow Rate FiO2 01/10/21 11:00 97.5 58 18 144/73 (96) 97 Room Air 97.5 Intake and Output 01/10/21 07:00 Intake Total 400 ml Balance 400 ml Intake Oral 200 ml IV Total 200 ml # Voids 10 Physical Exam Physical Exam She is alert,supine in bed and she had tenderness to palpation over left trochanteric bursa and medial and lateral knee joint line. She could not stand up for standing knee joint x-rays. Assessment Assessment Problems Medical Problems: (1) Sepsis Status: Acute Plan Plan of Care At her request,I have injected painful left trochanteric bursa under aseptic skin technique with alcohol skin prep using 1 ml of depo-medrol 40 mg/ 1 ml solution mixed with 2 ml of 0.25% marcaine solution and she tolerated the procedure satisfactorily without any side effects. Agree with plans for SNF transfer when medically stable. Comment Review of Relevant I have reviewed the following items jina (where applicable) has been applied. Labs Laboratory Tests Test 01/08/21 14:35 01/08/21 18:23 01/08/21 20:25 01/09/21 07:23 Glucose (Fingerstick) 264 mg/dL (70-99) 262 mg/dL (70-99) 247 mg/dL (70-99) 206 mg/dL (70-99) Test 01/09/21 10:40 01/09/21 12:05 01/09/21 16:25 01/09/21 19:49 Glucose (Fingerstick) 246 mg/dL (70-99) 193 mg/dL (70-99) 234 mg/dL (70-99) White Blood Count 10.7 x10^3/uL (4.0-11.0) Red Blood Count 3.90 x10^6/uL (3.50-5.40) Hemoglobin 9.6 g/dL (12.0-15.5) Hematocrit 29.9 % (36.0-47.0) Mean Corpuscular Volume 77 fL (79-100) Mean Corpuscular Hemoglobin 25 pg (25-35) Mean Corpuscular Hemoglobin Concent 32 g/dL (31-37) Red Cell Distribution Width 15.5 % (11.5-14.5) Platelet Count 329 x10^3/uL (140-400) Neutrophils (%) (Auto) 75 % (31-73) Lymphocytes (%) (Auto) 16 % (24-48) Monocytes (%) (Auto) 5 % (0-9) Eosinophils (%) (Auto) 3 % (0-3) Basophils (%) (Auto) 1 % (0-3) Neutrophils # (Auto) 8.0 x10^3/uL (1.8-7.7) Lymphocytes # (Auto) 1.7 x10^3/uL (1.0-4.8) Monocytes # (Auto) 0.6 x10^3/uL (0.0-1.1) Eosinophils # (Auto) 0.3 x10^3/uL (0.0-0.7) Basophils # (Auto) 0.0 x10^3/uL (0.0-0.2) Sodium Level 137 mmol/L (136-145) Potassium Level 3.9 mmol/L (3.5-5.1) Chloride Level 100 mmol/L (98-107) Carbon Dioxide Level 28 mmol/L (21-32) Anion Gap 9 (6-14) Blood Urea Nitrogen 19 mg/dL (7-20) Creatinine 1.2 mg/dL (0.6-1.0) Estimated GFR (Cockcroft-Gault) 43.6 Glucose Level 239 mg/dL (70-99) Calcium Level 9.6 mg/dL (8.5-10.1) Test 01/10/21 06:20 01/10/21 07:34 01/10/21 11:02 Sodium Level 140 mmol/L (136-145) Potassium Level 3.6 mmol/L (3.5-5.1) Chloride Level 103 mmol/L (98-107) Carbon Dioxide Level 29 mmol/L (21-32) Anion Gap 8 (6-14) Blood Urea Nitrogen 14 mg/dL (7-20) Creatinine 1.0 mg/dL (0.6-1.0) Estimated GFR (Cockcroft-Gault) 53.8 Glucose Level 201 mg/dL (70-99) Calcium Level 9.7 mg/dL (8.5-10.1) Glucose (Fingerstick) 222 mg/dL (70-99) 279 mg/dL (70-99) Laboratory Tests Test 01/09/21 16:25 01/09/21 19:49 01/10/21 06:20 01/10/21 07:34 Glucose (Fingerstick) 193 mg/dL (70-99) 234 mg/dL (70-99) 222 mg/dL (70-99) Sodium Level 140 mmol/L (136-145) Potassium Level 3.6 mmol/L (3.5-5.1) Chloride Level 103 mmol/L (98-107) Carbon Dioxide Level 29 mmol/L (21-32) Anion Gap 8 (6-14) Blood Urea Nitrogen 14 mg/dL (7-20) Creatinine 1.0 mg/dL (0.6-1.0) Estimated GFR (Cockcroft-Gault) 53.8 Glucose Level 201 mg/dL (70-99) Calcium Level 9.7 mg/dL (8.5-10.1) Test 01/10/21 11:02 Glucose (Fingerstick) 279 mg/dL (70-99) Microbiology 01/06/21 Blood Culture - Final, Complete 01/05/21 Urine Culture - Final, Complete 01/05/21 Antimicrobic Susceptibility - Final, Complete Medications Current Medications Piperacillin Sod/ Tazobactam Sod 4.5 gm/Sodium Chloride 100 ml @ 200 mls/hr 1X ONCE IV Last administered on 01/05/21at 22:04; Start 01/05/21 at 22:00; Stop 01/05/21 at 22:29; Status DC Vancomycin HCl (Vanco Per Pharmacy) 1 each PRN DAILY PRN MC SEE COMMENTS Last administered on 01/07/21at 15:37; Start 01/05/21 at 21:30; Stop 01/07/21 at 20:56; Status DC Sodium Chloride 1,000 ml @ 1,000 mls/hr 1X ONCE IV Last administered on 01/05/21at 22:04; Start 01/05/21 at 22:00; Stop 01/05/21 at 22:59; Status DC Vancomycin HCl 2 gm/Sodium Chloride 500 ml @ 250 mls/hr 1X ONCE IV Last administered on 01/05/21at 22:04; Start 01/05/21 at 22:00; Stop 01/05/21 at 23: 59; Status DC Iohexol (Omnipaque 300 Mg/ml) 60 ml 1X ONCE IV ; Start 01/05/21 at 23:00; Stop 01/05/21 at 23:01; Status DC Info (CONTRAST GIVEN -- Rx MONITORING) 1 each PRN DAILY PRN MC SEE COMMENTS; Start 01/05/21 at 22:45; Stop 01/07/21 at 22:44; Status DC Iohexol (Omnipaque 350 Mg/ml) 75 ml 1X ONCE IV Last administered on 01/05/21at 23:05; Start 01/06/21 at 00:30; Stop 01/06/21 at 00:31; Status DC Ondansetron HCl (Zofran) 4 mg PRN Q8HRS PRN IV NAUSEA/VOMITING 1ST CHOICE; Start 01/06/21 at 00:30; Stop 01/06/21 at 13:38; Status DC Morphine Sulfate (Morphine Sulfate) 4 mg PRN Q2HR PRN IV SEVERE PAIN 7-10; Start 01/06/21 at 00:30; Stop 01/07/21 at 00:29; Status DC Vancomycin HCl 2 gm/Sodium Chloride 500 ml @ 250 mls/hr Q24H IV Last administered on 01/07/21at 01:19; Start 01/06/21 at 22:00; Stop 01/07/21 at 20:56; Status DC Vancomycin HCl (Vancomycin Trough Level) 1 each 1X ONCE MC ; Start 01/07/21 at 21:30; Stop 01/07/21 at 20:56; Status DC Insulin Human Lispro (HumaLOG) 17 units 1X ONCE SQ Last administered on 01/06/21at 12:36; Start 01/06/21 at 12:30; Stop 01/06/21 at 12:31; Status DC Ondansetron HCl (Zofran) 4 mg PRN Q4HRS PRN IV NAUSEA/VOMITING 1ST CHOICE; Start 01/06/21 at 13:45 Nitroglycerin (Nitrostat) 0.4 mg PRN Q5MIN PRN SL CHEST PAIN; Start 01/06/21 at 13:45 Senna/Docusate Sodium (Senna Plus) 1 tab PRN DAILY PRN PO CONSTIPATION; Start 01/06/21 at 13:45 Carvedilol (Coreg) 12.5 mg BIDWMEALS PO Last administered on 01/10/21at 08:48; Start 01/06/21 at 17:00 Fluoxetine HCl (PROzac) 20 mg HS PO Last administered on 01/09/21at 20:56; Start 01/06/21 at 21:00 Insulin Glargine (Lantus Syringe) 20 unit QHS SQ Last administered on 01/09/21at 20:57; Start 01/06/21 at 21:00 Psyllium Hydrophilic Mucilloid (Metamucil Fiber Packet) 1 pkt QHS PO Last administered on 01/09/21at 20:56; Start 01/06/21 at 21:00 Piperacillin Sod/ Tazobactam Sod (Zosyn Per Pharmacy) 1 each PRN DAILY PRN MC SEE COMMENTS; Start 01/06/21 at 13:45 Levothyroxine Sodium (Synthroid) 200 mcg DAILY07 PO Last administered on 01/10/21at 06:05; Start 01/07/21 at 07:00 Piperacillin Sod/ Tazobactam Sod 2.25 gm/Sodium Chloride 50 ml @ 100 mls/hr Q6HRS IV Last administered on 01/10/21at 06:06; Start 01/06/21 at 18:00; Stop 01/10/21 at 10:08; Status DC Insulin Human Lispro (HumaLOG) 18 units 1X ONCE SQ Last administered on 01/06/21at 18:10; Start 01/06/21 at 17:45; Stop 01/06/21 at 17:46; Status DC Insulin Human Lispro (HumaLOG) 12 units 1X ONCE SQ Last administered on 01/07/21at 12:15; Start 01/07/21 at 12:15; Stop 01/07/21 at 12:16; Status DC Insulin Human Lispro (HumaLOG) 0-9 UNITS TIDWMEALS SQ ; Start 01/07/21 at 17:00; Stop 01/07/21 at 14:25; Status DC Dextrose (Dextrose 50%-Water Syringe) 12.5 gm PRN Q15MIN PRN IV SEE COMMENTS; Start 01/07/21 at 12:15; Stop 01/07/21 at 14:25; Status DC Insulin Human Lispro (HumaLOG) 0-9 UNITS TIDWMEALS SQ Last administered on 01/10/21at 11:19; Start 01/07/21 at 17:00 Dextrose (Dextrose 50%-Water Syringe) 12.5 gm PRN Q15MIN PRN IV SEE COMMENTS; Start 01/07/21 at 14:30 Insulin Human Lispro (HumaLOG) 4 units TIDAC SQ Last administered on 01/10/21at 11:20; Start 01/07/21 at 16:30 Acetaminophen (Tylenol) 1,000 mg PRN Q6HRS PRN PO MILD PAIN / TEMP > 100.3'F Last administered on 01/09/21at 21:02; Start 01/08/21 at 00:00 Insulin Human Lispro (HumaLOG) 3 units 1X ONCE SQ Last administered on 01/08/21at 11:53; Start 01/08/21 at 11:45; Stop 01/08/21 at 11:48; Status DC Lactobacillus Rhamnosus (Culturelle) 1 cap BID PO Last administered on 01/10/21at 08:49; Start 01/08/21 at 21:00 Heparin Sodium (Porcine) (Heparin Sodium) 5,000 unit Q8HRS SQ Last administered on 01/10/21at 06:06; Start 01/08/21 at 15:00 Methylprednisolone Acetate (DEPO-Medrol 40MG VIAL) 40 mg 1X ONCE IM Last administered on 01/09/21at 09:43; Start 01/09/21 at 09:30; Stop 01/09/21 at 09:35; Status DC Bupivacaine HCl (Sensorcaine-Mpf 0.25%) 10 ml 1X ONCE IJ Last administered on 01/09/21at 09:43; Start 01/09/21 at 09:30; Stop 01/09/21 at 09:35; Status DC Diclofenac Sodium (Voltaren) 1 wendie BID TP Last administered on 01/10/21at 08:58; Start 01/09/21 at 21:00 Amoxicillin/ Clavulanate Potassium (Augmentin 875/ 125mg) 1 tab BID PO Last administered on 01/10/21at 11:18; Start 01/10/21 at 10:30 Methylprednisolone Acetate (DEPO-Medrol 40MG VIAL) 40 mg 1X ONCE IM ; Start 01/10/21 at 13:15; Stop 01/10/21 at 13:16; Status DC Bupivacaine HCl (Sensorcaine-Mpf 0.25%) 10 ml 1X ONCE IJ ; Start 01/10/21 at 13:15; Stop 01/10/21 at 13:16; Status DC Active Scripts Active Amox Tr-K Clv 875-125 Mg Tab (Amoxicillin/Potassium Clav) 1 Each Tablet 1 Tab PO BID Admelog (Insulin Lispro) 100 Unit/1 Ml Vial 0 Units SQ TIDWMEALS 30 Days Famotidine 20 Mg Tablet 20 Mg PO BID 30 Days Levothyroxine Sodium 100 Mcg Tablet 200 Mcg PO DAILY07 Reported Fluoxetine Hcl 20 Mg Tablet 20 Mg PO HS Nystatin 15 Gm Powder 1 Wendie TP PRN BID PRN 7 Days apply to affected area(s) Lantus Solostar (Insulin Glargine,Hum.rec.anlog) 100 Unit/1 Ml Insuln.pen 20 Unit SQ QHS Senokot-S Tablet (Sennosides/Docusate Sodium) 1 Each Tablet 1 Each PO PRN DAILY PRN Benadryl (Diphenhydramine Hcl) 25 Mg Capsule 25 Mg PO PRN QHS PRN Coreg (Carvedilol) 25 Mg Tablet 12.5 Mg PO BIDWMEALS Nitrostat (Nitroglycerin) 0.4 Mg Tab.subl 0.4 Mg SL PRN Q5MIN PRN Vitals/I & O Vital Sign - Last 24 Hours 01/09/21 01/09/21 01/09/21 01/09/21 15:00 17:12 19:00 20:00 Temp 98.3 97.8 98.3 97.8 Pulse 64 61 61 Resp 18 B/P (MAP) 152/52 (85) 162/51 160/39 (79) Pulse Ox 96 94 O2 Delivery Room Air Room Air Room Air 01/09/21 01/10/21 01/10/21 01/10/21 23:06 03:00 07:00 08:00 Temp 98.4 97.9 97.6 98.4 97.9 97.6 Pulse 61 57 57 Resp 18 18 16 B/P (MAP) 160/49 (86) 164/49 (87) 175/54 (94) Pulse Ox 100 95 O2 Delivery Room Air Room Air Room Air Room Air 01/10/21 01/10/21 01/10/21 08:48 09:00 11:00 Temp 97.5 97.5 Pulse 57 58 Resp 18 B/P (MAP) 175/54 155/49 (84) 144/73 (96) Pulse Ox 95 97 O2 Delivery Room Air Room Air Intake and Output 01/09/21 01/09/21 01/10/21 15:00 23:00 07:00 Intake Total 50 ml 250 ml 100 ml Balance 50 ml 250 ml 100 ml Justifications for Admission Other Justification PAWAN FLETCHER MD Jan 10, 2021 13:45
--- NOTE | 2021-01-10 13:55 | NUR ---
Discharge Note: PT DISCHARGED TO [facility] AT 1355. PT LEFT FACILITY VIA [facility] TRANSPORT STAFF. PT STABLE AND ALERT UPON DISCHARGE. PT PIV REMOVED FROM R HAND WITHOUT COMPLICATIONS, BANDAGE APPLIED. REPORT CALLED TO MICHELE AT 1335. EDUCATED ABOUT DISCHARGE INSTRUCTIONS, DISCHARGE MEDICATIONS, AND FOLLOW-UP CARE. NO CONCERNS VOICED AT THIS TIME. PT LEFT WITH ALL PERSONAL BELONGINGS. ROSAURA MERAZ Discharge instructions and discharge home medications reviewed with Patient and a copy given. All questions have been answered and understanding verbalized.
== END 2021-01-10 13:57 | DRG 871 ==
LOC: ER 20:40 → 6 SOUTH 01-06 01:48 → ED HOLD 01-06 01:51 → 6 SOUTH 01-06 07:19 → 5 NORTH 01-08 16:09
PROVIDERS: ADMIT Family Medicine; ATTEND Family Medicine
PROC: 3E0U33Z Introduction of Anti-inflammatory into Joints, Percutaneous Approach (ICD-10-PCS; principal; 2021-01-09)
PROC: 3E0U3BZ Introduction of Anesthetic Agent into Joints, Percutaneous Approach (ICD-10-PCS; 2021-01-09)
DX: A41.9 Sepsis, unspecified organism (principal); N17.0 Acute kidney failure with tubular necrosis; E43 Unspecified severe protein-calorie malnutrition; N39.0 Urinary tract infection, site not specified; E87.1 Hypo-osmolality and hyponatremia; Z68.43 Body mass index [BMI] 50.0-59.9, adult; G93.40 Encephalopathy, unspecified; R29.6 Repeated falls; B96.20 Unspecified Escherichia coli [E. coli] as the cause of diseases classified elsewhere; B95.2 Enterococcus as the cause of diseases classified elsewhere; R74.8 Abnormal levels of other serum enzymes; E78.5 Hyperlipidemia, unspecified; E86.1 Hypovolemia; E83.52 Hypercalcemia; E86.0 Dehydration; M19.90 Unspecified osteoarthritis, unspecified site; R32 Unspecified urinary incontinence; E66.01 Morbid (severe) obesity due to excess calories; M25.561 Pain in right knee; M25.562 Pain in left knee; E11.65 Type 2 diabetes mellitus with hyperglycemia; I10 Essential (primary) hypertension; E03.9 Hypothyroidism, unspecified; Z20.822 Contact with and (suspected) exposure to COVID-19; E78.00 Pure hypercholesterolemia, unspecified; I25.10 Atherosclerotic heart disease of native coronary artery without angina pectoris; M17.0 Bilateral primary osteoarthritis of knee; M41.9 Scoliosis, unspecified; R62.7 Adult failure to thrive; Z82.49 Family history of ischemic heart disease and other diseases of the circulatory system; Z83.3 Family history of diabetes mellitus; Z86.16 Personal history of COVID-19; Z87.891 Personal history of nicotine dependence; Z90.49 Acquired absence of other specified parts of digestive tract; Z95.5 Presence of coronary angioplasty implant and graft; I25.2 Old myocardial infarction; Z88.8 Allergy status to other drugs, medicaments and biological substances; E11.42 Type 2 diabetes mellitus with diabetic polyneuropathy; Z79.4 Long term (current) use of insulin
CPT/HCPCS: 36415; 70450; 71045; 71275; 74174; 80048; 80053; 80202; 81001; 82140; 82150; 82550; 82962; 83605; 83690; 84145; 85007; 85025; 85379; 85384; 85610; 85730; 87040; 87077; 87086; 87186; 87205; 87804; 93005; 96365; 96368; 99285; J1030; J1644; J1815; J2543; J3370; J3490; J7030; J7040; Q9967; U0003; 97116-GP; 97530-GO; 97530-GP; 97535-GO; G0378

== ENCOUNTER → 2021-02-12 | Outpatient (CLI) | payer MEDICARE ==
[~2021-02-12] MED LIST changes: +AMOX1TAB11 PO; +FLUO20TA11 PO; +LEVO100T5 PO; +NYST15PO9 TP
--- NOTE | 2021-02-12 11:48 | KCIC ---
EXAM: Right lower extremity venous Doppler. HISTORY: Right lower extremity pain/swelling. COMPARISON: None. FINDINGS: Grayscale and Doppler analysis of the right lower extremity deep venous systems was perform ed with graded compression and augmentation. The common femoral, greater saphenous, superficial femor al, popliteal and calf veins were assessed. There is venous occlusion of the right posterior tibial vein along its entire length. The peroneal ve ins are not well visualized but likely occluded as well. There is calf edema also noted. IMPRESSION: 1. Right calf occlusive deep venous thrombosis involving at minimum the posterior tibial vein and lik leatha the peroneal vein as well. FOR INTERNAL CODING PURPOSES Critical result: Findings discussed with Saima, nurse practitioner with Dr. Jasmin Goddard at 02/12/2021 11:46 AM. RESULT CODE: (C) Electronically signed by: Meryl Soto MD (02/12/2021 11:46 AM) [id number]
== END ==
LOC: KCIC US 10:37
PROVIDERS: ATTEND Internal Medicine
DX: I82.461 Acute embolism and thrombosis of right calf muscular vein (principal)
CPT/HCPCS: 93971